=== PATIENT | female | born 1955 | race Caucasian/White ===

== ENCOUNTER → 2016-04-23 | Outpatient (CLI) | payer MEDICAID ==
[2016-04-23 09:13] LABS: ABSOLUTE EOSINOPHILS # (AUTO) 0.1 10^3/uL (0.0-0.6); ABSOLUTE LYMPHOCYTES (AUTO) 1.3 10^3/uL (0.5-4.7); ABSOLUTE MONOCYTES (AUTO) 0.3 10^3/uL (0.1-1.4); ABSOLUTE NEUT (AUTO) 2.7 10^3/uL (1.7-8.2); BASOPHILS % (AUTO) 0.8 % (0-2); EOSINOPHILS % (AUTO) 2.1 % (0-6); HEMATOCRIT 40.9 % (36.0-47.0); HEMOGLOBIN 13.8 g/dL (12.0-15.5); HGB HCT DIFFERENCE 0.5; LYMPHOCYTES % (AUTO) 29.8 % (13-45); MEAN CORPUSCULAR HEMOGLOBIN 30.3 pg (27.0-33.4); MEAN CORPUSCULAR HGB CONC 33.8 g/dL (32.0-36.0); MEAN CORPUSCULAR VOLUME 90 fl (80-97); MONOCYTES % (AUTO) 6.7 % (3-13); RED BLOOD COUNT 4.57 10^6/uL (3.72-5.28); RED CELL DISTRIBUTION WIDTH 12.7 % (11.5-14.0); SEGMENTED NEUTROPHILS % (AUTO) 60.6 % (42-78); WHITE BLOOD COUNT 4.4 10^3/uL (4.0-10.5)
[2016-04-23 09:36] LABS: ALANINE AMINOTRANSFERASE 30 U/L (9-52); ALBUMIN 4.8 g/dL (3.5-5.0); ALKALINE PHOSPHATASE 68 U/L (38-126); ANION GAP 13 (5-19); ASPARTATE AMINO TRANSFERASE 24 U/L (14-36); BILIRUBIN,TOTAL 0.6 mg/dL (0.2-1.3); BLOOD UREA NITROGEN 16 mg/dL (7-20); CARBON DIOXIDE 27 mmol/L (22-30); CHLORIDE 102 mmol/L (98-107); CHOLESTEROL 270.92 mg/dL (0-200); Direct HDL 50 mg/dL (>40); GLUCOSE 95 mg/dL (75-110); POTASSIUM 4.5 mmol/L (3.6-5.0); SODIUM 141.9 mmol/L (137-145); TOTAL PROTEIN 7.6 g/dL (6.3-8.2); TRIGLYCERIDES 156 mg/dL (<150)
[2016-04-23 09:47] LABS: DIRECT LDL 186 mg/dL (<100)
[2016-04-23 09:52] LABS: VLDL CHOLESTEROL 31.2 mg/dL (10-31)
[2016-04-24 14:40] LABS: JO-1 ANTIBODY <0.2 AI (0.0-0.9)
[2016-04-25 12:19] LABS: CYCLIC CITRUL PEPTIDE IGG/A AB 7 units (0-19)
== END ==
LOC: OD 07:35
DX: E78.5 Hyperlipidemia, unspecified (principal); E56.9 Vitamin deficiency, unspecified; M06.9 Rheumatoid arthritis, unspecified; M19.90 Unspecified osteoarthritis, unspecified site; J02.9 Acute pharyngitis, unspecified
CPT/HCPCS: 36415; 80053; 80061; 83036; 85025; 85652; 86200; 86225; 86235; 86430

== ENCOUNTER 2016-04-27 09:04 | Emergency (ER) | payer MEDICAID ==
[2016-04-27] MEDS ORDERED: ASPIRIN 81 MG TABLET, CHEWABLE PO ONE (09:05)
--- NOTE | 2016-04-27 09:24 | ER Document Report ---
ED Cardiac - General Stated Complaint: CHEST PAIN Notes: The patient is a 61-year-old female, past medical history hypertension, hyperlipidemia, anxiety, BPPV, presents with 3 days of left upper chest wall pain that is worse when she is coughing. She has had a URI for the past week and is coughing frequently. She is also having very mild shortness of breath and nausea after coughing. She says the chest pain is worse when she presses against her chest. Today, she is intermittently having her usual vertiginous symptoms. Denies ataxia, blurry vision, numbness, tingling, fevers, rash, recent travel, sick contacts, leg swelling, headache or back pain. TRAVEL OUTSIDE OF THE [place] IN LAST 30 DAYS: No - Related Data Allergies/Adverse Reactions: IVP dye Adverse Reaction (Intermediate, Uncoded 04/27/16 09:35) rash Past Medical History - Social History Smoking Status: Never Smoker Family History: CAD - Past Medical History Cardiac Medical History: Reports: Hx Hypercholesterolemia, Hx Hypertension Pulmonary Medical History: Reports: Hx Pneumonia - left lung scarring Denies: Hx Asthma, Hx Bronchitis, Hx COPD, Hx Respiratory Failure, Hx Sleep Apnea, Hx Tuberculosis Neurological Medical History: Reports: Hx Cerebrovascular Accident - Patient reports "mini stroke" Endocrine Medical History: Denies: Hx Diabetes Mellitus Type 1, Hx Diabetes Mellitus Type 2 Renal/ Medical History: Denies: Hx End Stage Renal Disease, Hx Kidney Stones, Hx Ovarian Cysts, Hx Peritoneal Dialysis Malignancy Medical History: Denies: Hx Breast Cancer, Hx Cervical Cancer, Hx Leukemia, Hx Lung Cancer, Hx Ovarian Cancer GI Medical History: Reports: Hx Gastroesophageal Reflux Disease, Hx Ulcer. Denies: Hx Crohn's Disease, Hx Hiatal Hernia, Hx Irritable Bowel, Hx Liver Failure Musculoskeltal Medical History: Reports Hx Arthritis, Denies Hx Fibromyalgia, Denies Hx Multiple Sclerosis, Denies Hx Muscular Dystrophy Psychiatric Medical History: Reports: Hx Depression, Hx Post Traumatic Stress Disorder Denies: Hx Bipolar Disorder, Hx Dementia, Hx Schizophrenia Traumatic Medical History: Reports: Hx Fractures - left wrist Infectious Medical History: Denies: Hx HIV Past Surgical History: Reports: Hx Adenoidectomy, Hx Appendectomy, Hx Hysterectomy, Hx Orthopedic Surgery - carpal tunnel. Denies: Hx Bowel Surgery, Hx Section, Hx Cholecystectomy, Hx Colostomy, Hx Coronary Artery Bypass Graft, Hx Gastric Bypass Surgery, Hx Herniorrhaphy, Hx Mastectomy, Hx Pacemaker, Hx Tonsillectomy, Hx Tubal Ligation - Immunizations Hx Diphtheria, Pertussis, Tetanus Vaccination: Yes Review of Systems - Review of Systems Notes: REVIEW OF SYSTEMS: CONSTITUTIONAL: -fevers, -chills EENT: -eye pain, -difficulty swallowing, -nasal congestion CARDIOVASCULAR: +chest pain, -syncope. RESPIRATORY: +cough, +SOB GASTROINTESTINAL: -abdominal pain, +nausea, -vomiting, -diarrhea GENITOURINARY: -dysuria, -hematuria MUSCULOSKELETAL: -back pain, -neck pain SKIN: -rash or skin lesions. HEMATOLOGIC: -easy bruising or bleeding. LYMPHATIC: -swollen, enlarged glands. NEUROLOGICAL: -altered mental status or loss of consciousness, -headache, - neurologic symptoms PSYCHIATRIC: -anxiety, -depression. ALL OTHER SYSTEMS REVIEWED AND NEGATIVE. Physical Exam - Vital signs Vitals: Pulse Ox 96 04/27/16 09:20 - Notes Notes: PHYSICAL EXAMINATION: GENERAL: Well-appearing, well-nourished and in no acute distress. HEAD: Atraumatic, normocephalic. EYES: Pupils equal round and reactive to light, extraocular movements intact, sclera anicteric, conjunctiva are normal. ENT: nares patent, oropharynx clear without exudates. Moist mucous membranes. NECK: Normal range of motion, supple without lymphadenopathy LUNGS: Breath sounds clear to auscultation bilaterally and equal. No wheezes rales or rhonchi. HEART: Regular rate and rhythm without murmurs ABDOMEN: Soft, nontender, normoactive bowel sounds. No guarding, no rebound. No masses appreciated. EXTREMITIES: Normal range of motion, no pitting or edema. No cyanosis. NEUROLOGICAL: Cranial nerves grossly intact. Normal speech, normal gait. Normal sensory, motor, and reflex exams. PSYCH: Normal mood, normal affect. SKIN: Warm, Dry, normal turgor, no rashes or lesions noted. Course - Re-evaluation Re-evalutation: Patient has no exam findings for posterior cerebellar insufficiency. After meclizine, patient's vertigo has resolved. Chest x-ray does not show any infiltrates. Lab tests, including troponin, are all unremarkable. EKG is also unremarkable. HEART score 3. She is low risk per Well's score, but unable to PERC out due to age and initial HR. D-dimer is negative, so PE is very unlikely at this time. Symptoms atypical for ACS and aortic dissection at this time. Spoke to patient and she is feeling better after aspirin. Instructed her to continue anti-inflammatories tele-chest wall pain and to follow-up with her primary care physician in one to 2 days to recheck her symptoms and possible stress test. Patient comfortable with plan. - Vital Signs Vital signs: Temp Pulse Resp BP Pulse Ox 97.9 F 29 H 123/80 98 04/27/16 11:03 04/27/16 11:03 04/27/16 11:03 04/27/16 11:03 - Laboratory Result Diagrams: 04/27/16 09:23 04/27/16 09:23 Laboratory results interpreted by me: 04/27/16 09:23 Calcium 10.6 H Total Protein 8.6 H Albumin 5.1 H Discharge - Discharge Clinical Impression: Chest wall pain, Cough Condition: Good Disposition: HOME, SELF-CARE Additional Instructions: CHEST PAIN OF UNCLEAR CAUSE: The exact cause of your chest pain isn't clear. Fortunately, there is no evidence of a dangerous medical condition. Further testing may be required to find the source of the pain. Most often, we find that this pain is coming from the chest wall -- the muscles or rib joints in the chest. But chest pain can come from the lung and lung lining, the esophagus, the heart valves or heart lining, and even the stomach or gallbladder. Rest. Eat lightly until the pain is gone. We may prescribe medicine for pain and inflammation. You should call the physician immediately if the pain radiates to the shoulder, jaw or arms; if you start to run a fever or develop a cough; or if you develop shortness of breath, or other new or alarming symptoms. NORMAL EXAM AND WORKUP: At this time, your examination and workup show no significant abnormality. No significant abnormal physical findings were noted. All laboratory, EKG, and imaging (x-ray, CT scans, ultrasound) studies that were ordered show no significant abnormality. Although your examination and all studies that were ordered showed no significant abnormal finding, there are no examinations and no studies that are 100% accurate. There is always the possibility that some abnormality could exist and not be detected with physical examination or within the limits and capabilities of laboratory and other studies. You should return or follow up as you were instructed on your visit today for further evaluation if your symptoms do not resolve. CHEST WALL PAIN: Your chest pain may be coming from the chest wall. This is often caused by straining the muscles or joints in the chest during physical activity, direct trauma, coughing, or vigorous vomiting. Persons with arthritis are especially prone to this type of pain, due to inflammation of the cartilage joints near the breast bone. Occasionally, no cause can be found. Rest from strenuous physical activity. This kind of chest pain is usually made worse by movement of the chest. Depending on the symptoms, we may prescribe medicine for pain, muscle relaxation, and antiinflammatory effects. If the pain is new, and seems to be due to muscle strain, cold packs can help. Otherwise, apply gentle warmth to the painful area for 15 minutes every hour or two. You should call contact the doctor immediately if things change. Further evaluation is needed if you develop a fever or cough, if the nature of the pain changes, or if you become short of breath. ASPIRIN: Aspirin has been shown to have a beneficial effect on blood circulation by reducing the clotting effect of platelets in the blood. These beneficial effects can be achieved by taking just a single baby (81 mg) aspirin a day. It is recommended that any person over the age of forty take a single baby aspirin every day for heart and brain circulation, unless you are allergic to aspirin or have some significant bleeding disorder. It is strongly recommended that people who have proven cardiac or blood circulation disturbances should take a baby aspirin every day. NITRATES: Nitroglycerin and related longer-acting nitrate medications are used to prevent or treat attacks of angina. These medicines dilate blood vessels, decreasing the work of the heart, and improving its supply of oxygen. Many different forms are available, including sublingual tablets (used under the tongue), sprays, skin patches, and long-acting pills. If the particular form of medication you have been given is not working well for you, contact your doctor. Long-acting forms: Take exactly as prescribed. Sudden stopping of medication can provoke increased attacks. Sublingual tabs or spray: A headache will usually occur with use. Sit or lie while waiting for the pain to go away. If angina doesn't respond to three doses (five minutes apart), call for emergency assistance. FOLLOW-UP CARE: If you have been referred to a physician for follow-up care, call the physician s office for an appointment as you were instructed or within the next two days. If you experience worsening or a significant change in your symptoms, notify the physician immediately or return to the Emergency Department at any time for re-evaluation. Prescriptions: Lidocaine [Lidoderm] 1 each TP DAILY #10 adh..patch Referrals: SHELBY SANDOVAL MD [Primary Care Provider] - Follow up as needed
[2016-04-27 09:35] LABS: ABSOLUTE BASOPHILS # (AUTO) 0.1 10^3/uL (0.0-0.2); ABSOLUTE EOSINOPHILS # (AUTO) 0.1 10^3/uL (0.0-0.6); ABSOLUTE LYMPHOCYTES (AUTO) 1.5 10^3/uL (0.5-4.7); ABSOLUTE MONOCYTES (AUTO) 0.4 10^3/uL (0.1-1.4); ABSOLUTE NEUT (AUTO) 3.9 10^3/uL (1.7-8.2); BASOPHILS % (AUTO) 0.9 % (0-2); EOSINOPHILS % (AUTO) 1.4 % (0-6); HEMATOCRIT 43.1 % (36.0-47.0); HEMOGLOBIN 15.2 g/dL (12.0-15.5); HGB HCT DIFFERENCE 2.5; LYMPHOCYTES % (AUTO) 25.3 % (13-45); MEAN CORPUSCULAR HEMOGLOBIN 30.6 pg (27.0-33.4); MEAN CORPUSCULAR HGB CONC 35.2 g/dL (32.0-36.0); MEAN CORPUSCULAR VOLUME 87 fl (80-97); MONOCYTES % (AUTO) 6.1 % (3-13); RED BLOOD COUNT 4.96 10^6/uL (3.72-5.28); SEGMENTED NEUTROPHILS % (AUTO) 66.3 % (42-78); WHITE BLOOD COUNT 5.8 10^3/uL (4.0-10.5)
[2016-04-27 09:54] LABS: BLOOD UREA NITROGEN 14 mg/dL (7-20); CARBON DIOXIDE 26 mmol/L (22-30); CHLORIDE 104 mmol/L (98-107); CREATININE RESULT 0.76 mg/dL (0.52-1.25); GLUCOSE 106 mg/dL (75-110); POTASSIUM 4.2 mmol/L (3.6-5.0); SODIUM 144.9 mmol/L (137-145)
[2016-04-27 09:55] LABS: ALBUMIN 5.1 g/dL (3.5-5.0); ANION GAP 15 (5-19); TOTAL PROTEIN 8.6 g/dL (6.3-8.2)
[2016-04-27 09:57] LABS: ALANINE AMINOTRANSFERASE 18 U/L (9-52); ALKALINE PHOSPHATASE 87 U/L (38-126); ASPARTATE AMINO TRANSFERASE 34 U/L (14-36); BILIRUBIN,TOTAL 0.8 mg/dL (0.2-1.3); CALCIUM 10.6 mg/dL (8.4-10.2); CREATINE KINASE 40 U/L (30-135)
[2016-04-27] MEDS ORDERED: NORMAL SALINE 1000 ML 1,000 ML IV ONE (10:00)
[2016-04-27] MEDS ORDERED: MECLIZINE HCL 25 MG TABLET PO ONE (10:48)
[2016-04-27 11:04] VITALS: BP 123/80
--- NOTE | 2016-04-27 11:57 | EKG REPORT ---
SEVERITY:- ABNORMAL ECG - SINUS RHYTHM WITH BASELINE ARTIFACTS : Confirmed by: Jose M Rome 27-Apr-2016 11:56:43
== END 2016-04-27 11:16 | disposition home or self-care (01) ==
LOC: ER 09:04
DX: R07.89 Other chest pain (principal); R05 Cough; R06.02 Shortness of breath; I10 Essential (primary) hypertension; E78.5 Hyperlipidemia, unspecified; Z86.73 Personal history of transient ischemic attack (TIA), and cerebral infarction without residual deficits; Z90.710 Acquired absence of both cervix and uterus
CPT/HCPCS: 93005; 99284; 96360; 36415; 82550; 85025; 80053; 84484; 85379; 71010; 93010; J7030

== ENCOUNTER → 2016-05-14 | Outpatient (CLI) | payer MEDICAID ==
[~2016-05-14] MED LIST: AMINOPHYLLINE INJ/PF 250 MG/10 ML SDV IV ONE; REGADENOSON INJ 0.4 MG/5 ML DISP.SYRIN IV ONE
--- NOTE | 2016-05-15 13:08 | DRAGON STRESS TEST REPORT ---
INTRAVENOUS LEXISCAN CARDIOLITE STRESS TEST USING SINGLE PHOTON EMMISION COMPUTERIZED TOMOGRAPHIC. DATE OF PROCEDURE: May 14, 2016 INDICATION : Chest pain CARDIAC RISK FACTORS: Dyslipidemia, family history of CAD RESTING EKG: Sinus rhythm, without any baseline ST-T wave changes. STRESS EKG: No significant changes noted with LexiScan bolus REASON FOR TERMINATION: Protocol. PROCEDURE REPORT: Baseline heart rate 68 beats per minute with blood pressure of 147/86. Patient had no significant complaints. Heart rate at 2 minutes post bolus 97 with a blood pressure of 165/74. 3 minutes post bolus heart rate 84 with blood pressure of 145/73. No significant EKG changes were noted. Patient had left arm and left shoulder discomfort during the procedure. CONCLUSIONS: Normal EKG and hemodynamic response to IV LexiScan. NUCLEAR DATA: At rest the patient was given 11.80 millicuries of technetium 99 sestamibi injected intravenously. As per protocol rest gated SPECT images were obtained. Subsequently the patient was given intravenous LexiScan at a dose of 0.4 mg in 5 mL intravenously, followed by flush with normal saline. Subsequently the stress dose of 32.1 millicuries of technetium 99 sestamibi was injected intravenously. As per protocol stress gated images were obtained. NUCLEAR INTERPRETATION: Both raw and processed data were used for interpretation. Visual, qualitative, computer-generated quantitative data was used. There was good myocardial uptake of technetium compound. Motion artifact and soft tissue attenuations were noted. Increased visceral uptake was noted. No definitive areas of transient perfusion defect noted. No definitive areas of fixed perfusion defect or scars noted. EKG gated imaging showed LV EF at 56 %, rest and stress gated EF similar visually. T. I D. ratio was 0.93. Lung heart ratio noted to be within normal limits 0.39. No significant extracardiac and abnormal radiotracer activities were noted. RV free wall uptake was noted to be borderline increased. IMPRESSION: Also refer to comments under nuclear interpretation. Also test results needs to be interpreted in the context of pretest probability. 1. There is no definitive scintigraphic evidence of LexiScan induced myocardial ischemia. 2. There is no definitive scintigraphic evidence of myocardial infarction/scar. 3. EKG gated imaging shows left ejection fraction of approximately 56 %. 4. Clinical correlation requested as occasionally single vessel disease or balanced ischemia could be missed. In approximately 10% of the cases Lexiscan may not cause adequate vasodilatory stress. RECOMMENDATIONS: Aggressive risk factor modification, medical therapy. Clinical correlation with echocardiogram derived ejection fraction. Inability to exercise by itself can lead to increased cardiovascular event risks. Consider cardiology consultation if clinically indicated. I AM AVAILABLE FOR CARDIOLOGY CONSULTATION AND FOLLOWUP IF REQUESTED BY PMD Jose M Rome M.D., MRCP [employer] Technician application helper, Board certified in cardiovascular diseases, Nuclear cardiology, Echocardiography Cardiac CT and cardiac MRI Ph. [phone] [facility]
== END ==
LOC: RAD 06:45
DX: I20.9 Angina pectoris, unspecified (principal)
CPT/HCPCS: 93017; 78452; A9500; J2785; J0280; Q9969

== ENCOUNTER → 2016-05-21 | Outpatient (CLI) | payer MEDICAID ==
[2016-05-21 08:35] LABS: APPEARANCE,URINE SLIGHTLY-CLOUDY; BILIRUBIN,URINE NEGATIVE (NEGATIVE); GLUCOSE, URINE NEGATIVE (NEGATIVE); KETONES,URINE NEGATIVE (NEGATIVE); LEUKOCYTE ESTERASE,URINE SMALL (NEGATIVE); NITRITE,URINE NEGATIVE (NEGATIVE); PROTEIN,URINE NEGATIVE (NEGATIVE); URINE SPECIFIC GRAVITY 1.011; UROBILINOGEN,URINE NEGATIVE mg/dL (<2.0)
== END ==
LOC: OD 07:06
DX: K46.9 Unspecified abdominal hernia without obstruction or gangrene (principal); E78.5 Hyperlipidemia, unspecified; I20.9 Angina pectoris, unspecified; M19.90 Unspecified osteoarthritis, unspecified site; M06.9 Rheumatoid arthritis, unspecified; F44.89 Other dissociative and conversion disorders; M47.22 Other spondylosis with radiculopathy, cervical region; M34.1 CR(E)ST syndrome; J02.9 Acute pharyngitis, unspecified
CPT/HCPCS: 71020; 72040; 81001

== ENCOUNTER → 2016-07-27 | Outpatient (CLI) | payer MEDICAID | LOC: OD 07:45 | PROVIDERS: ATTEND Student in an Organized Health Care Education/Training Program | DX: M54.12 Radiculopathy, cervical region (principal) | CPT/HCPCS: 72050 ==

== ENCOUNTER 2016-10-10 02:23 | Inpatient (IN) | payer MEDICAID ==
[2016-10-10] MEDS ORDERED: NORMAL SALINE 1000 ML 1,000 ML IV ONE (02:36)
[2016-10-10] MEDS ORDERED: ONDANSETRON HCL INJ/PF 4 MG/2 ML SDV IV ONE ×3 (02:36→08:10)
[2016-10-10] MEDS ORDERED: MORPHINE SULFATE 10 MG/ML INJ IV ONE (02:36)
--- NOTE | 2016-10-10 02:38 | ER Document Report ---
ED GI/ - General TRAVEL OUTSIDE OF THE [place] IN LAST 30 DAYS: No <JOLENE MCGINNIS - Last Filed: 10/10/16 07:49> <VINEET COPPOLA - Last Filed: 10/10/16 09:00> - General Stated Complaint: ABDOMINAL PAIN Time Seen by Provider: 10/10/16 02:29 Notes: Patient is a 61-year-old female comes emergency department for chief complaint of abdominal pain, she reports both lower and upper abdominal pain with vomiting 9 times, she states symptoms started about 6 p she had a loose bowel movement at about 530, she states she has not had a normal bowel movement in almost 1 week, this is abnormal for her. She denies fever, dysuria, flank pain, chest pain. She has had a cholecystectomy, 2 hernia repairs, hysterectomy, other past medical history is GERD, IBS, arthritis. (JOLENE MCGINNIS) - Related Data Allergies/Adverse Reactions: IVP dye Adverse Reaction (Intermediate, Uncoded 10/10/16 08:44) rash Past Medical History - General Information source: Patient - Social History Smoking Status: Never Smoker Drug Abuse: None Lives with: Alone Family History: CAD - Past Medical History Cardiac Medical History: Reports: Hx Hypercholesterolemia, Hx Hypertension Pulmonary Medical History: Reports: Hx Pneumonia - left lung scarring Denies: Hx Asthma, Hx Bronchitis, Hx COPD, Hx Respiratory Failure, Hx Sleep Apnea, Hx Tuberculosis Neurological Medical History: Reports: Hx Cerebrovascular Accident - Patient reports "mini stroke" Endocrine Medical History: Denies: Hx Diabetes Mellitus Type 1, Hx Diabetes Mellitus Type 2 Renal/ Medical History: Denies: Hx End Stage Renal Disease, Hx Kidney Stones, Hx Ovarian Cysts, Hx Peritoneal Dialysis Malignancy Medical History: Denies: Hx Breast Cancer, Hx Cervical Cancer, Hx Leukemia, Hx Lung Cancer, Hx Ovarian Cancer GI Medical History: Reports: Hx Gastroesophageal Reflux Disease, Hx Ulcer. Denies: Hx Crohn's Disease, Hx Hiatal Hernia, Hx Irritable Bowel, Hx Liver Failure Musculoskeltal Medical History: Reports Hx Arthritis, Denies Hx Fibromyalgia, Denies Hx Multiple Sclerosis, Denies Hx Muscular Dystrophy Psychiatric Medical History: Reports: Hx Depression, Hx Post Traumatic Stress Disorder Denies: Hx Bipolar Disorder, Hx Dementia, Hx Schizophrenia Traumatic Medical History: Reports: Hx Fractures - left wrist Infectious Medical History: Denies: Hx HIV Past Surgical History: Reports: Hx Adenoidectomy, Hx Appendectomy, Hx Hysterectomy, Hx Orthopedic Surgery - carpal tunnel. Denies: Hx Bowel Surgery, Hx Section, Hx Cholecystectomy, Hx Colostomy, Hx Coronary Artery Bypass Graft, Hx Gastric Bypass Surgery, Hx Herniorrhaphy, Hx Mastectomy, Hx Pacemaker, Hx Tonsillectomy, Hx Tubal Ligation - Immunizations Hx Diphtheria, Pertussis, Tetanus Vaccination: Yes <JOLENE MCGINNIS - Last Filed: 10/10/16 07:49> Review of Systems - Review of Systems Constitutional: No symptoms reported EENT: No symptoms reported Cardiovascular: No symptoms reported Respiratory: No symptoms reported Gastrointestinal: See HPI Genitourinary: No symptoms reported Female Genitourinary: No symptoms reported Musculoskeletal: No symptoms reported Skin: No symptoms reported Hematologic/Lymphatic: No symptoms reported Neurological/Psychological: No symptoms reported <JOLENE MCGINNIS - Last Filed: 10/10/16 07:49> Physical Exam - Vital signs Interpretation: Normal - General General appearance: Anxious In distress: Mild - HEENT Head: Normocephalic, Atraumatic Eyes: Normal Pupils: PERRL - Respiratory Respiratory status: No respiratory distress Chest status: Nontender Breath sounds: Normal. No: Decreased air movement, Wheezing Chest palpation: Normal - Cardiovascular Rhythm: Regular. No: Tachycardia Heart sounds: Normal auscultation, S1 appreciated, S2 appreciated Murmur: No - Abdominal Inspection: Other - vertical midline scar, small surgical scars otherwise Distension: Distended - mild distension Bowel sounds: Hypoactive Tenderness: Tender - upper and lower abdominal tenderness - Back Back: Normal, Nontender - Extremities General upper extremity: Normal inspection, Nontender, Normal color, Normal ROM , Normal temperature General lower extremity: Normal inspection, Nontender, Normal color, Normal ROM , Normal temperature, Normal weight bearing. No: Sam's sign - Neurological Neuro grossly intact: Yes Cognition: Normal Orientation: AAOx4 [place] Coma Scale Eye Opening: Spontaneous [place] Coma Scale Verbal: Oriented [place] Coma Scale Motor: Obeys Commands [place] Coma Scale Total: 15 Speech: Normal Motor strength normal: LUE, RUE, LLE, RLE Sensory: Normal - Psychological Associated symptoms: Anxious - Skin Skin Temperature: Warm Skin Moisture: Dry Skin Color: Normal <JOLENE MCGINNIS Last Filed: 10/10/16 07:49> Course - Laboratory Result Diagrams: 10/10/16 02:42 10/10/16 02:42 <JOLENE MCGINNIS - Last Filed: 10/10/16 07:49> - Laboratory Result Diagrams: 10/10/16 02:42 10/10/16 02:42 <VINEET COPPOLA - Last Filed: 10/10/16 09:00> - Re-evaluation Re-evalutation: Patient initially uncomfortable, vomiting, has generalized upper and lower abdominal pain. After medication she is much improved. CBC, chemistry, urinalysis nonspecific. Acute abdominal series nonspecific. On reevaluation patient continues to have some pain and is nauseated. Patient is allergic to IV contrast dye reportedly, CAT scan will be performed with oral contrast to rule out obstruction or other acute abdominal pathology. Patient becoming nauseated with contrast but she tolerated it well. She was given additional medications for nausea which worked well. She has not vomited again. She did have a loose bowel movement at [address] showing dilation of small bowel suggestive of possible developing obstruction versus ileus, no complete obstruction is seen, no other abnormalities noted. On reevaluation patient is actually asymptomatic, no complaints at this time. Discussed results with patient, patient will be given a p.o. trial with fluids and reevaluated. 10/10/16 07:50 Patient introduced to Jesus Manuel REA. (JOLENE MCGINNIS) 10/10/16 08:15 First examined patient she had decreased bowel sounds mild nausea but states she is feeling much better than earlier in the night. She was given a challenge of water and instructed to sip slowly. 1 of the nurses came to me and states she is now actively vomiting Zofran [address] Alvarado consulted and he will admit the patient with small bowel obstruction. NC to intermittent suction 18 fr 10/10/16 08:59 Patient had swelling to the bedside discussed plan of care with patient. She is very anxious and agitated about the NG tube. Will use viscous lidocaine and give her a milligram of Ativan IV previous to the insertion of the NG tube. We will give a bolus of lactated Ringer's and then continue with her hydrating IV. (VINEET COPPOLA) - Vital Signs Vital signs: Temp Pulse Resp BP Pulse Ox 97.5 F 83 21 H 161/80 H 98 06/24/17 08:44 10/10/16 08:44 10/10/16 08:44 10/10/16 08:44 10/10/16 08:44 - Laboratory Laboratory results interpreted by me: 10/10/16 10/10/16 10/10/16 02:42 02:42 03:45 Seg Neutrophils % 85.1 H Lymphocytes % 10.3 L Absolute Neutrophils 8.6 H Glucose 160 H AST 40 H Total Protein 8.3 H Urine Protein 30 H Urine Ketones TRACE H Discharge <JOLENE MCGINNIS - Last Filed: 10/10/16 07:49> - Discharge Admitting Provider: Surgicalist - [place] Unit Admitted: Surgical Floor <VINEET COPPOLA - Last Filed: 10/10/16 09:00> - Discharge Clinical Impression: Small bowel obstruction Disposition: ADMITTED INPATIENT
[2016-10-10 02:53] LABS: ABSOLUTE MONOCYTES (AUTO) 0.4 10^3/uL (0.1-1.4); ABSOLUTE NEUT (AUTO) 8.6 10^3/uL (1.7-8.2); BASOPHILS % (AUTO) 0.5 % (0-2); EOSINOPHILS % (AUTO) 0.3 % (0-6); HEMATOCRIT 42.6 % (36.0-47.0); HEMOGLOBIN 14.5 g/dL (12.0-15.5); HGB HCT DIFFERENCE 0.9; LYMPHOCYTES % (AUTO) 10.3 % (13-45); MEAN CORPUSCULAR VOLUME 88 fl (80-97); MONOCYTES % (AUTO) 3.8 % (3-13); RED BLOOD COUNT 4.83 10^6/uL (3.72-5.28); RED CELL DISTRIBUTION WIDTH 13.1 % (11.5-14.0); SEGMENTED NEUTROPHILS % (AUTO) 85.1 % (42-78); WHITE BLOOD COUNT 10.1 10^3/uL (4.0-10.5)
[2016-10-10 03:08] LABS: ALANINE AMINOTRANSFERASE 35 U/L (9-52); ALBUMIN 4.6 g/dL (3.5-5.0); ALKALINE PHOSPHATASE 90 U/L (38-126); ANION GAP 13 (5-19); ASPARTATE AMINO TRANSFERASE 40 U/L (14-36); BILIRUBIN,DIRECT 0.4 mg/dL (0.0-0.4); BILIRUBIN,TOTAL 0.7 mg/dL (0.2-1.3); BLOOD UREA NITROGEN 16 mg/dL (7-20); CALCIUM 9.8 mg/dL (8.4-10.2); CARBON DIOXIDE 24 mmol/L (22-30); CHLORIDE 103 mmol/L (98-107); CREATININE RESULT 0.71 mg/dL (0.52-1.25); GLUCOSE 160 mg/dL (75-110); LIPASE 55.5 U/L (23-300); POTASSIUM 4.2 mmol/L (3.6-5.0); SODIUM 139.9 mmol/L (137-145); TOTAL PROTEIN 8.3 g/dL (6.3-8.2)
--- NOTE | 2016-10-10 03:44 | RADIOLOGY REPORT (SQ) ---
EXAM DESCRIPTION: ACUTE ABDOMEN SERIES COMPLETED DATE/TIME: 10/10/2016 3:21 am REASON FOR STUDY: vomiting, upper and lower abdominal pain COMPARISON: 05/21/2016. 04/27/2016. 10/02/2015. CT, 06/06/2015. NUMBER OF VIEWS: Three views. TECHNIQUE: Frontal chest, supine abdomen and upright/decubitus abdomen radiographic images acquired. LIMITATIONS: None. FINDINGS: CHEST: Moderate lung volumes, prominent interstitium, an chronic prominent right cardiophr enic fat pad. FREE AIR: None. No abnormal gas collections. BOWEL GAS PATTERN: Nonobstructive pattern. No dilated loops. Small nonspecific air-fluid levels of t he mid abdomen. CALCIFICATIONS: No suspicious calcifications. HARDWARE: Right upper abdominal clips. SOFT TISSUES: No gross mass or suggestion of organomegaly. BONES: Mild disc desiccation. Ihcm-[id number] osteoarthritis of bilateral hips. OTHER: No other significant finding. IMPRESSION: No acute findings. TECHNICAL DOCUMENTATION: JOB ID: [id number] [employer]- All Rights Reserved
[2016-10-10 03:57] LABS: APPEARANCE,URINE SLIGHTLY-CLOUDY; BILIRUBIN,URINE NEGATIVE (NEGATIVE); GLUCOSE, URINE NEGATIVE (NEGATIVE); KETONES,URINE TRACE mg/dL (NEGATIVE); LEUKOCYTE ESTERASE,URINE NEGATIVE (NEGATIVE); NITRITE,URINE NEGATIVE (NEGATIVE); PROTEIN,URINE 30 mg/dL (NEGATIVE); URINE SPECIFIC GRAVITY 1.016; UROBILINOGEN,URINE NEGATIVE mg/dL (<2.0)
[2016-10-10 04:00] LABS: WBC,URINE RARE /HPF
[2016-10-10 04:01] LABS: BACTERIA,URINE 2+ /HPF
[2016-10-10] MEDS ORDERED: DIPHENHYDRAMINE HCL 50 MG/ML VIAL IV ONE (04:06)
--- NOTE | 2016-10-10 07:06 | RADIOLOGY REPORT (SQ) ---
EXAM DESCRIPTION: CT ABD/PELVIS ORAL ONLY COMPLETED DATE/TIME: 10/10/2016 6:48 am REASON FOR STUDY: abd pain, vomiting COMPARISON: 2.18.16. 09/06/2012. 08/27/2011. TECHNIQUE: CT scan of the abdomen and pelvis performed without intravenous or oral contrast. Images reviewed with lung, soft tissue, and bone windows. Reconstructed coronal and sagittal MPR images revi ewed. All images stored on PACS. All CT scanners at this facility use dose modulation, iterative reconstruction, and/or weight based d osing when appropriate to reduce radiation dose to as low as reasonably achievable (ALARA). [facility]: Dose Right [facility]: CareDose [facility]: Dose Right [facility]: Teradose 4D [facility]: [employer] RADIATION DOSE: Up-to-date CT equipment and radiation dose reduction techniques were employed. CTDIv ol: 12.1 mGy. DLP: 619 mGy-cm.mGy. LIMITATIONS: None. FINDINGS: LOWER CHEST: No significant findings. No nodules or infiltrates. Small atelectasis or sca r bilateral lung bases. NON-CONTRASTED LIVER, SPLEEN, ADRENALS: Evaluation limited by lack of IV contrast. No identified sign ificant masses. PANCREAS: No masses. No peripancreatic inflammatory changes. GALLBLADDER: Surgically absent. RIGHT KIDNEY AND URETER: No suspicious masses. Assessment limited by lack of IV contrast. No signif icant calcifications. No hydronephrosis or hydroureter. 11.9 cm with developmental malrotation. LEFT KIDNEY AND URETER: No suspicious masses. Assessment limited by lack of IV contrast. No signifi cant calcifications. No hydronephrosis or hydroureter. 9.6 cm with developmental malrotation. AORTA AND RETROPERITONEUM: No aneurysm. No retroperitoneal masses or adenopathy. BOWEL AND PERITONEAL CAVITY: No obvious masses or inflammatory changes. No free fluid. 3.2 cm in dil ated small bowel loops of the right paracentral abdomen with us air-fluid levels. Nondistended mid a nd distal small bowel with. Partial colectomy reported. Anterior midline scar. APPENDIX: Surgically absent. PELVIS, BLADDER, AND ABDOMINAL WALL:No abnormal masses. No free fluid. Bladder normal. New 2.2 cm le ft inguinal fluid collection. BONES: No significant findings. OTHER: No other significant finding. IMPRESSION: Moderate 3.2 cm fluid dilation of small bowel may indicate early or partial small bowel obstruction or ileus. TECHNICAL DOCUMENTATION: JOB ID: [id number] Quality ID # [id number]: Final reports with documentation of one or more dose reduction techniques (e.g., Au tomated exposure control, adjustment of the mA and/or kV according to patient size, use of iterative reconstruction technique) 2010 [employer]- All Rights Reserved
[2016-10-10] MEDS ORDERED: NORMAL SALINE 1000 ML 1,000 ML IV PRN (07:42)
[2016-10-10] MEDS ORDERED: LORAZEPAM INJ 2 MG/1 ML VIAL IV ONE (08:56)
[2016-10-10] MEDS ORDERED: RINGERS SOLUTION,LACTATED 1,000 ML IV ONE (08:56)
[2016-10-10] MEDS ORDERED: LIDOCAINE 2% VISCOUS SOLN 20 ML UDCUP PO ONE (08:57)
--- NOTE | 2016-10-10 09:39 | PDOC H&P ---
History of Present Illness Admission Date/PCP: 10/10/16 08:36 LIU MASON DO History of Present Illness: CARMEN HORTON is a 61 year old female who presents to the emergency department complaining of a several day history of crampy abdominal pain, nonlocalized associated with nausea and subsequent vomiting. Patient's last bowel movement was 4 days ago until yesterday when she had some diarrhea. Patient's pain increased yesterday after 12 PM. Last ate yesterday morning. She originally attributed her symptoms to GERD however when she was in the emergency department she was found to have increased abdominal pain and abdominal distention. CT scan of the abdomen and pelvis with oral contrast showed findings consistent with a partial mid small bowel obstruction surgery was consulted and she was advised admission. Patient denies previous history of small bowel obstruction. She is status post sigmoid colectomy and rectopexy [address] Fowler for rectal prolapse. Patient is also status post abdominal wall hernia surgery in [facility]. Past Medical History Cardiac Medical History: Reports: Hyperlipidema, Hypertension Pulmonary Medical History: Reports: Pneumonia - left lung scarring Denies: Asthma, Bronchitis, Chronic Obstructive Pulmonary Disease (COPD), Respiratory Failure, Sleep Apnea, Tuberculosis Endocrine Medical History: Denies: Diabetes Mellitus Type 1, Diabetes Mellitus Type 2 Renal/ Medical History: Denies: End Stage Renal Disease Malignancy Medical History: Denies: Breast Cancer, Cervical Cancer, Leukemia, Lung Cancer, Ovarian Cancer GI Medical History: Reports: Gastroesophageal Reflux Disease Denies: Crohn's Disease, Hiatal Hernia Musculoskeltal Medical History: Reports: Arthritis Denies: Fibromyalgia Psychiatric Medical History: Reports: Depression, Post Traumatic Stress Disorder Denies: Bipolar Disorder, Dementia Hematology: Denies: Anemia, Hemophilia, Sickle Cell Disease Infectious Medical History: Denies: HIV Past Surgical History Past Surgical History: Reports: Adenoidectomy, Appendectomy, Hysterectomy, Orthopedic Surgery - carpal tunnel, Other - Sigmoid colectomy, rectopexy Dr. Fowler 2013; abdominal wall hernia surg Denies: Amputation, Section, Cholecystectomy, Colostomy, Coronary Artery Bypass Graft, Gastric Bypass Surgery, Herniorrhaphy, Mastectomy, Pacemaker, Tonsillectomy, Tubal Ligation Social History Lives with: Alone Smoking Status: Never Smoker Hx Recreational Drug Use: No Hx Prescription Drug Abuse: No - Advance Directive Resuscitation Status: Full Code Family History Family History: CAD Parental Family History Reviewed: Yes Children Family History Reviewed: Yes Sibling(s) Family History Reviewed.: Yes Medication/Allergy Home Medications: Bupropion HCl [Bupropion Xl] 150 mg PO DAILY 02/07/15 Cholecalciferol (Vitamin D3) [D3-2000] 1 cap PO DAILY 02/07/15 Docusate Sodium [Colace 100 mg Capsule] 100 mg PO DAILY PRN 02/07/15 Duloxetine HCl [Cymbalta 20 mg Capsule.dr] 20 mg PO BID 02/07/15 Eszopiclone [Lunesta] 3 mg PO DAILY 02/07/15 Fiber [Fiber Choice] 1 tab PO DAILY 02/07/15 Gabapentin [Neurontin 300 mg Capsule] 300 mg PO BID 02/07/15 Hydrocodone Bit/Acetaminophen [Hydrocodon-Acetaminophen 5-325] 1 tab PO BID PRN 02/07/15 Esomeprazole Magnesium [Nexium] 40 mg PO Q12 #60 capsule.dr 02/08/15 Ezetimibe [Zetia 10 mg Tablet] 10 mg PO QHS #30 tablet 02/08/15 Rosuvastatin Calcium [Crestor] 40 mg PO QHS #30 tablet 02/08/15 Sucralfate [Carafate 1 gm Tablet] 1 gm PO ACHS #40 tablet 02/08/15 Lidocaine [Lidoderm] 1 each TP DAILY #10 adh..patch 04/27/16 Allergies/Adverse Reactions: IVP dye Adverse Reaction (Intermediate, Uncoded 10/10/16 08:44) rash Review of Systems Constitutional: PRESENT: as per HPI Eyes: ABSENT: visual disturbances Ears: ABSENT: hearing changes Breasts: PRESENT: other - Denies Gastrointestinal: PRESENT: other - Patient has had a colonoscopy in last 5 years. Genitourinary: ABSENT: dysuria, hematuria Musculoskeletal: PRESENT: back pain Psychiatric: ABSENT: anxiety, depression, homidical ideation, suicidal ideation Endocrine: ABSENT: cold intolerance, heat intolerance, polydipsia, polyuria Physical Exam Vital Signs: Temp Pulse Resp BP Pulse Ox 97.5 F 83 21 H 161/80 H 98 10/10/16 08:44 10/10/16 08:44 10/10/16 08:44 10/10/16 08:44 10/10/16 08:44 Intake & Output 06/10/10/16 10/11/16 06:59 06:59 06:59 Output Total 700 Balance -700 General appearance: PRESENT: mild distress Head exam: PRESENT: normocephalic Eye exam: PRESENT: EOMI Mouth exam: PRESENT: dry mucosa Neck exam: PRESENT: full ROM Respiratory exam: PRESENT: clear to auscultation alice Cardiovascular exam: PRESENT: RRR Pulses: PRESENT: normal carotid pulses, normal radial pulses Vascular exam: PRESENT: normal capillary refill GI/Abdominal exam: PRESENT: other - Abdomen distended tender diffusely midline incision scar well-healed Psychiatric exam: PRESENT: anxious, appropriate affect Skin exam: PRESENT: dry Results Impressions: Acute Abdomen Series 10/10/16 02:37 IMPRESSION: No acute findings. Abdomen/Pelvis CT 10/10/16 04:00 IMPRESSION: Moderate 3.2 cm fluid dilation of small bowel may indicate early or partial small bowel obstruction or ileus. Assessment & Plan - Diagnosis (1) Small bowel obstruction Is this a current diagnosis for this admission?: YesPlan: 1. Patient will be admitted to the surgical service, kept n.p.o. on IV fluids, nasogastric tube inserted. 2. If patient does not improve clinically, she may require exploratory laparoscopy, lysis of adhesion. 3. Explained above to the patient; she is very anxious but I believe she understands and agrees to proceed. (2) Chronic pain Is this a current diagnosis for this admission?: Yes (3) Hx of hyperlipidemia Is this a current diagnosis for this admission?: Yes (4) Anxiety disorder Is this a current diagnosis for this admission?: Yes - Time Time Spent: 30 to 50 Minutes Critical Time spent with patient: 15-24 minutes Medications reviewed and adjusted accordingly: Yes Anticipated discharge: Home - Inpatient Certification Based on my medical assessment, after consideration of the patient's comorbidities, presenting symptoms, or acuity I expect that the services needed warrant INPATIENT care.: Yes I certify that my determination is in accordance with my understanding of Medicare's requirements for reasonable and necessary INPATIENT services [42 CFR 412.3e].: Yes Medical Necessity: Need For IV Fluids, Need for Pain Control
[2016-10-10] MEDS: RINGERS SOLUTION,LACTATED 1,000 ML IV PRN ×2 (13:17→23:00)
[2016-10-10] MEDS: FAMOTIDINE INJ/PF 20 MG/2 ML SDV IV SCH ×2 (13:17→21:50)
[2016-10-11] MEDS: RINGERS SOLUTION,LACTATED 1,000 ML IV PRN ×3 (03:51→14:35)
[2016-10-11] MEDS ORDERED: KETOROLAC TROMETHAMINE INJ/PF 30 MG/1 ML SDV IV ONE (05:45)
[2016-10-11] MEDS: FAMOTIDINE INJ/PF 20 MG/2 ML SDV IV SCH ×2 (09:20→22:33)
--- NOTE | 2016-10-11 10:36 | PDOC PROGRESS REPORT ---
Subjective Progress Note for:: 10/11/16 Subjective:: Patient continues to have some abdominal pain initially better then worse last night. She got Toradol for pain with some relief. She denies flatus and denies bowel movement. She is voiding, with incomplete documentation of ins and outs. Physical Exam Vital Signs: Temp Pulse Resp BP Pulse Ox 98.1 F 70 14 148/70 H 97 10/11/16 07:24 10/11/16 07:24 10/11/16 07:24 10/11/16 07:24 10/11/16 07:24 Intake & Output 10/10/16 10/11/16 10/12/16 06:59 06:59 06:59 Intake Total 2400 Output Total 900 Balance 1500 Weight 68.9 kg General appearance: PRESENT: mild distress GI/Abdominal exam: PRESENT: other - Nasogastric tube draining dark green-brown material. Abdomen is tender not particularly distended. There is minimal guarding. Results Impressions: Acute Abdomen Series 10/10/16 02:37 IMPRESSION: No acute findings. Abdomen/Pelvis CT 10/10/16 04:00 IMPRESSION: Moderate 3.2 cm fluid dilation of small bowel may indicate early or partial small bowel obstruction or ileus. Assessment & Plan - Diagnosis (1) Small bowel obstruction Is this a current diagnosis for this admission?: YesPlan: 24 hours after admission patient still having abdominal pain and significant nasogastric tube output. Clinically no report of flatus. Plan: 1. Continue nasogastric decompression 2. We will check abdominal films this morning. If small bowel obstruction unresolved, exploratory surgery will be indicated and I explained this to the patient. (2) Chronic pain Is this a current diagnosis for this admission?: Yes (3) Hx of hyperlipidemia Is this a current diagnosis for this admission?: Yes (4) Anxiety disorder Is this a current diagnosis for this admission?: Yes
[2016-10-11] MEDS: ONDANSETRON HCL INJ/PF 4 MG/2 ML SDV IV PRN ×2 (11:02→19:27)
--- NOTE | 2016-10-11 11:03 | RADIOLOGY REPORT (SQ) ---
EXAM DESCRIPTION: ABDOMEN 2 VIEWS COMPLETED DATE/TIME: 10/11/2016 10:49 am REASON FOR STUDY: interval change COMPARISON: 10/10/2016 NUMBER OF VIEWS: Two views. TECHNIQUE: Supine and erect/decubitus radiographic images of the abdomen acquired. LIMITATIONS: None. FINDINGS: FREE AIR: None. No abnormal gas collections. LUNG BASES: Clear. BOWEL GAS PATTERN: Contrast is mass seen in the distribution of the colon. There are no dilated smal l bowel loops or air-fluid levels. CALCIFICATIONS: No suspicious calcifications. SOFT TISSUES: No gross mass or suggestion of organomegaly. HARDWARE: Nasogastric tube in place. BONES: No acute fracture. No worrisome bone lesions. OTHER: No other significant finding. IMPRESSION: Normal study. Contrast in the colon and no dilated small bowel loops. TECHNICAL DOCUMENTATION: JOB ID: [id number] [employer]- All Rights Reserved
[2016-10-12] MEDS: ONDANSETRON HCL INJ/PF 4 MG/2 ML SDV IV PRN ×3 (00:58→20:32)
--- NOTE | 2016-10-12 09:16 | PDOC PROGRESS REPORT ---
Subjective Progress Note for:: 10/12/16 Subjective:: Patient seen this a.m. She is just been to the bathroom but states she can only urinate. She states that she had some flatus last evening and again yesterday but has not had any through the night. She continues to complain about abdominal pain. She states the pain is a 4-5 out of 10. She states it is only when someone presses on her abdominal wall. She denies any nausea or vomiting. Nursing states the patient had 250 cc of drainage from her NG tube in the last 8 hours. Physical Exam Vital Signs: Temp Pulse Resp BP Pulse Ox 97.6 F 73 16 144/64 H 97 10/11/16 23:28 10/11/16 23:28 10/11/16 23:28 10/11/16 23:28 10/11/16 23:28 Intake & Output 10/11/16 10/12/16 10/13/16 06:59 06:59 06:59 Intake Total 2400 2400 Output Total 900 2150 Balance 1500 250 Weight 68.9 kg 68.3 kg General appearance: PRESENT: no acute distress, obese Head exam: PRESENT: normocephalic Eye exam: PRESENT: EOMI, PERRLA Mouth exam: PRESENT: dry mucosa Respiratory exam: PRESENT: clear to auscultation alice, symmetrical Cardiovascular exam: PRESENT: irregular rhythm, RRR, +S1, +S2 Pulses: PRESENT: normal dorsalis pedis pul, +2 pedal pulses bilateral Vascular exam: PRESENT: normal capillary refill GI/Abdominal exam: PRESENT: diminished bowel sounds, distended, guarding, hypoactive bowel sounds, soft, tenderness - Positive for regarding right and left lower quadrants. Hypoactive bowel sounds all quadrants. No rebound or masses noted. Results Laboratory Results: Laboratory WBC 10.1 10^3/uL (4.0-10.5) 10/10/16 02:42 RBC 4.83 10^6/uL (3.72-5.28) 10/10/16 02:42 Hgb 14.5 g/dL (12.0-15.5) 10/10/16 02:42 Hct 42.6 % (36.0-47.0) 10/10/16 02:42 MCV 88 fl (80-97) 10/10/16 02:42 MCH 30.0 pg (27.0-33.4) 10/10/16 02:42 MCHC 34.0 g/dL (32.0-36.0) 10/10/16 02:42 RDW 13.1 % (11.5-14.0) 10/10/16 02:42 Plt Count 266 10^3/uL (150-450) 10/10/16 02:42 Seg Neutrophils % 85.1 % (42-78) H 10/10/16 02:42 Lymphocytes % 10.3 % (13-45) L 10/10/16 02:42 Monocytes % 3.8 % (3-13) 10/10/16 02:42 Eosinophils % 0.3 % (0-6) 10/10/16 02:42 Basophils % 0.5 % (0-2) 10/10/16 02:42 Absolute Neutrophils 8.6 10^3/uL (1.7-8.2) H 10/10/16 02:42 Absolute Lymphocytes 1.0 10^3/uL (0.5-4.7) 10/10/16 02:42 Absolute Monocytes 0.4 10^3/uL (0.1-1.4) 10/10/16 02:42 Absolute Eosinophils 0.0 10^3/uL (0.0-0.6) 10/10/16 02:42 Absolute Basophils 0.0 10^3/uL (0.0-0.2) 10/10/16 02:42 Sodium 139.9 mmol/L (137-145) 10/10/16 02:42 Potassium 4.2 mmol/L (3.6-5.0) 10/10/16 02:42 Chloride 103 mmol/L (98-107) 10/10/16 02:42 Carbon Dioxide 24 mmol/L (22-30) 10/10/16 02:42 Anion Gap 13 (5-19) 10/10/16 02:42 BUN 16 mg/dL (7-20) 10/10/16 02:42 Creatinine 0.71 mg/dL (0.52-1.25) 10/10/16 02:42 Est GFR ( Amer) > 60 (>60) 10/10/16 02:42 Est GFR (Non-Af Amer) > 60 (>60) 10/10/16 02:42 Glucose 160 mg/dL (75-110) H 10/10/16 02:42 Calcium 9.8 mg/dL (8.4-10.2) 10/10/16 02:42 Total Bilirubin 0.7 mg/dL (0.2-1.3) 10/10/16 02:42 Direct Bilirubin 0.4 mg/dL (0.0-0.4) 10/10/16 02:42 Indirect Bilirubin Not Reportable 10/10/16 02:42 Neonat Total Bilirubin Not Reportable 10/10/16 02:42 AST 40 U/L (14-36) H 10/10/16 02:42 ALT 35 U/L (9-52) 10/10/16 02:42 Alkaline Phosphatase 90 U/L (38-126) 10/10/16 02:42 Total Protein 8.3 g/dL (6.3-8.2) H 10/10/16 02:42 Albumin 4.6 g/dL (3.5-5.0) 10/10/16 02:42 Lipase 55.5 U/L (23-300) 10/10/16 02:42 Urine Color YELLOW 10/10/16 03:45 Urine Appearance SLIGHTLY-CLOUDY 10/10/16 03:45 Urine pH 9.0 (5.0-9.0) 10/10/16 03:45 Ur Specific [place] 1.016 10/10/16 03:45 Urine Protein 30 mg/dL (NEGATIVE) H 10/10/16 03:45 Urine Glucose (UA) NEGATIVE mg/dL (NEGATIVE) 10/10/16 03:45 Urine Ketones TRACE mg/dL (NEGATIVE) H 10/10/16 03:45 Urine Blood NEGATIVE (NEGATIVE) 10/10/16 03:45 Urine Nitrite NEGATIVE (NEGATIVE) 10/10/16 03:45 Urine Bilirubin NEGATIVE (NEGATIVE) 10/10/16 03:45 Urine Urobilinogen NEGATIVE mg/dL (<2.0) 10/10/16 03:45 Ur Leukocyte Esterase NEGATIVE (NEGATIVE) 10/10/16 03:45 Urine WBC RARE /HPF 10/10/16 03:45 Ur Squamous Epith Cells MODERATE /HPF 10/10/16 03:45 Urine Bacteria 2+ /HPF 10/10/16 03:45 Urine Mucus 1+ 10/10/16 03:45 Urine Ascorbic Acid NEGATIVE (NEGATIVE) 10/10/16 03:45 Impressions: Acute Abdomen Series 10/10/16 02:37 IMPRESSION: No acute findings. Abdomen/Pelvis CT 10/10/16 04:00 IMPRESSION: Moderate 3.2 cm fluid dilation of small bowel may indicate early or partial small bowel obstruction or ileus. Abdomen X-Ray 10/11/16 08:12 IMPRESSION: Normal study. Contrast in the colon and no dilated small bowel loops. Assessment & Plan - Diagnosis (2) Small bowel obstruction Is this a current diagnosis for this admission?: YesPlan: We will order Gastrografin small bowel follow-through today to be placed on the patient's NG tube and attempt to identify mechanical versus paralytic ileus. 2. If the patient has bowel movement following Gastrografin small bowel follow- through will remove NG tube and begin clear liquid diet - Time Critical Time spent with patient: 15-24 minutes Medications reviewed and adjusted accordingly: Yes
[2016-10-12] MEDS: FAMOTIDINE INJ/PF 20 MG/2 ML SDV IV SCH ×2 (09:28→22:28)
[2016-10-12 10:48] LABS: ABSOLUTE EOSINOPHILS # (AUTO) 0.1 10^3/uL (0.0-0.6); ABSOLUTE LYMPHOCYTES (AUTO) 1.2 10^3/uL (0.5-4.7); ABSOLUTE MONOCYTES (AUTO) 0.5 10^3/uL (0.1-1.4); ABSOLUTE NEUT (AUTO) 4.8 10^3/uL (1.7-8.2); BASOPHILS % (AUTO) 0.5 % (0-2); EOSINOPHILS % (AUTO) 1.5 % (0-6); HEMATOCRIT 38.1 % (36.0-47.0); HEMOGLOBIN 12.8 g/dL (12.0-15.5); HGB HCT DIFFERENCE 0.3; LYMPHOCYTES % (AUTO) 18.2 % (13-45); MEAN CORPUSCULAR HGB CONC 33.7 g/dL (32.0-36.0); MEAN CORPUSCULAR VOLUME 89 fl (80-97); MONOCYTES % (AUTO) 7.3 % (3-13); RED BLOOD COUNT 4.28 10^6/uL (3.72-5.28); RED CELL DISTRIBUTION WIDTH 12.5 % (11.5-14.0); SEGMENTED NEUTROPHILS % (AUTO) 72.5 % (42-78); WHITE BLOOD COUNT 6.6 10^3/uL (4.0-10.5)
--- NOTE | 2016-10-12 13:51 | RADIOLOGY REPORT (SQ) ---
EXAM DESCRIPTION: KUB/ABDOMEN (SINGLE VIEW) COMPLETED DATE/TIME: 10/12/2016 1:41 pm REASON FOR STUDY: ileus Gastrograffin SBFT-UNABLE TO HAVE IODINE CONTRAST COMPARISON: 10/11/2016 NUMBER OF VIEWS: One view. TECHNIQUE: Supine radiographic image of the abdomen acquired. LIMITATIONS: None. FINDINGS: BOWEL GAS PATTERN: There is contrast in the ascending and transverse colon. NG tube is in place. CALCIFICATIONS: No suspicious calcifications. SOFT TISSUES: No gross mass or suggestion of organomegaly. HARDWARE: Surgical clips are present the right upper quadrant. BONES: No acute fracture. No worrisome bone lesions. OTHER: No other significant finding. IMPRESSION: Gas pattern is nonspecific. There is contrast in the ascending and transverse colon. N G tube is in place. TECHNICAL DOCUMENTATION: JOB ID: [id number] [employer]- All Rights Reserved
[2016-10-12] MEDS: RINGERS SOLUTION,LACTATED 1,000 ML IV PRN (22:28)
[2016-10-13] MEDS: RINGERS SOLUTION,LACTATED 1,000 ML IV PRN (03:44)
[2016-10-13] MEDS: ONDANSETRON HCL INJ/PF 4 MG/2 ML SDV IV PRN (06:46)
--- NOTE | 2016-10-13 08:03 | RADIOLOGY REPORT (SQ) ---
EXAM DESCRIPTION: ABDOMEN 2 VIEWS COMPLETED DATE/TIME: 10/13/2016 7:39 am REASON FOR STUDY: ileus COMPARISON: 10/12/2016. NUMBER OF VIEWS: Two views. TECHNIQUE: Supine and erect/decubitus radiographic images of the abdomen acquired. LIMITATIONS: None. FINDINGS: FREE AIR: None. No abnormal gas collections. LUNG BASES: Small left basilar atelectasis or scar. BOWEL GAS PATTERN: Retained colonic contrast. Paucity of bowel gas. CALCIFICATIONS: No suspicious calcifications. SOFT TISSUES: No gross mass or suggestion of organomegaly. HARDWARE: Right upper abdominal clips. Adequate appearing NG tube. BONES: No acute fracture. No worrisome bone lesions. OTHER: No other significant finding. IMPRESSION: NO RADIOGRAPHIC EVIDENCE FOR ACUTE ABDOMINAL DISEASE. TECHNICAL DOCUMENTATION: JOB ID: [id number] [employer]- All Rights Reserved
[2016-10-13] MEDS ORDERED: BISACODYL 10 MG SUPP.RECT PR ONE (08:18)
--- NOTE | 2016-10-13 08:28 | PDOC PROGRESS REPORT ---
Subjective Progress Note for:: 10/13/16 Subjective:: Patient seen this a.m. She states she still having some abdominal pain. She denies any nausea or vomiting. She has multiple questions concerning the fluid that is come out of her NG tube. The patient was scheduled to have a Gastrografin small bowel follow-through yesterday in attempt to stimulate her small bowel to finally cause a bowel movement however radiology refused to perform the procedure as the patient had stated she had an iodine allergy. The radiologist also stated the patient's contrast from her previous CT scan was already in her colon but there was no need for the study. Patient states she is hungry. She is having flatus but has not as yet had a bowel movement. Physical Exam Vital Signs: Temp Pulse Resp BP Pulse Ox 98.0 F 73 20 159/90 H 98 10/12/16 23:26 10/12/16 23:26 10/12/16 23:26 10/12/16 23:26 10/12/16 23:26 Intake & Output 10/12/16 10/13/16 10/14/16 06:59 06:59 06:59 Intake Total 2400 6648 Output Total 2150 2750 Balance 250 3898 Weight 68.3 kg 67.6 kg General appearance: PRESENT: no acute distress, obese, well-developed Head exam: PRESENT: atraumatic Respiratory exam: PRESENT: other - Clear to auscultation bilaterally negative for any rales, wheezing, rubs Cardiovascular exam: PRESENT: other - Regular rate and rhythm, positive S1-S2, negative S 3 S4, negative for any murmurs, thrills, clicks, heaves, rubs Pulses: PRESENT: normal carotid pulses, normal femoral pulses, normal dorsalis pedis pul Vascular exam: PRESENT: normal capillary refill GI/Abdominal exam: PRESENT: other - Soft, mild tenderness on palpation however with stethoscope in the same area as the patient elicits no response to deep palpation. No guarding or rebound noted. Positive bowel sounds 4 quadrants hypoactive. She is negative for distention or tympany. Neurological exam: PRESENT: alert, awake, oriented to time, oriented to situation Results Laboratory Results: 10/12/16 10:30 10/12/16 10:30 WBC 6.6 RBC 4.28 Hgb 12.8 Hct 38.1 MCV 89 MCH 30.0 MCHC 33.7 RDW 12.5 Plt Count 237 Seg Neutrophils % 72.5 Lymphocytes % 18.2 Monocytes % 7.3 Eosinophils % 1.5 Basophils % 0.5 Absolute Neutrophils 4.8 Absolute Lymphocytes 1.2 Absolute Monocytes 0.5 Absolute Eosinophils 0.1 Absolute Basophils 0.0 Impressions: Acute Abdomen Series 10/10/16 02:37 IMPRESSION: No acute findings. Abdomen/Pelvis CT 10/10/16 04:00 IMPRESSION: Moderate 3.2 cm fluid dilation of small bowel may indicate early or partial small bowel obstruction or ileus. KUB X-Ray 10/12/16 00:00 IMPRESSION: Gas pattern is nonspecific. There is contrast in the ascending and transverse colon. NG tube is in place. Abdomen X-Ray 10/13/16 06:00 IMPRESSION: NO RADIOGRAPHIC EVIDENCE FOR ACUTE ABDOMINAL DISEASE. Assessment & Plan - Diagnosis (1) Ileus Plan: 1. We will clip the patient's NG tube for the next 6 hours and begin clear liquid diet. If the patient tolerates the feeding over the next 6 hours we will remove the NG tube. 2. We will give the patient Dulcolax suppository and attempt to stimulate bowel function. 3. Review of the abdominal film from yesterday reveals contrast in the colon. There obviously is no evidence of ileus. (2) Small bowel obstruction Is this a current diagnosis for this admission?: Yes - Time Time Spent with patient: 25-34 minutes Anticipated discharge: Home
[2016-10-13] MEDS ORDERED: POTASSI CL 20 MEQ/D5-1/2NS 1L 1,000 ML IV PRN (08:38)
[2016-10-13] MEDS: FAMOTIDINE INJ/PF 20 MG/2 ML SDV IV SCH (09:21)
--- NOTE | 2016-10-13 16:09 | PDOC DISCHARGE SUMMARY ---
Discharge Summary (SDC) - Discharge Final Diagnosis: Partial small bowel obstruction Discharge Date: 10/13/16 Condition: Good Treatment or Instructions: 1. Follow-up with family physician this week, call for an appointment 2. Liquid diet for the next 48 hours and slowly advance to soft diet with multiple (5) meals per day 3. Any problems contact the hospital and have the surgical service was paged Referrals: LIU MASON DO [Primary Care Provider] - Follow up as needed Discharge Diet: Full Liquids Respiratory Treatments at Home: Deep Breathing/Coughing Discharge Activity: Activity As Tolerated Home Care Assistance: None Needed Report the Following to Your Physician Immediately: Shortness of Breath, Nausea , Vomiting, Increase in Pain Other Items to Report to MD: Abdominal distention, constipation
[2016-10-13 16:18] VITALS: BP 142/63
--- NOTE | 2016-12-02 09:02 | DISCHARGE SUMMARY E ---
Discharge Summary NAME: CARMEN HORTON : 1955 AGE: 61Y ADMITTED: 10/10/2016 DISCHARGED: 10/13/2016 SUMMARY OF HOSPITALIZATION: The patient is a 61-year-old white female with a history of previous sigmoid colectomy for benign disease, previous small bowel obstruction, who presented to the emergency department complaining of abdominal pain, nausea, and vomiting. She was evaluated and found by CT scan of the abdomen and pelvis to have findings consistent with a partial small bowel obstruction. She was admitted to the surgicalist service for management. The patient was admitted to the surgicalist service, kept n.p.o. on IV fluids. She was managed with a nasogastric tube. Clinically, she improved. Nasogastric tube was removed, she was started on liquid and tolerated this well. Her abdominal film showed resolution of a small bowel obstruction. By the third hospital day, she was felt to receive maximum benefit from hospitalization and was discharged home. FINAL DIAGNOSES: 1. Small bowel obstruction, resolved. 2. History of sigmoid colon resection remote. DISPOSITION: The patient will be discharged home in the care of her family. Follow up with [facility] in approximately 1-2 weeks and with her primary care doctor as previously scheduled. If she develops any acute signs of deterioration, she will be seen in the emergency department. DICTATING PHYSICIAN: PIERRE CADET M.D. [id number] PHY#: [id number] ID: [id number] JOB#: [id number] ACCT: [id number] cc:PIERRE CAEDT M.D. >
== END 2016-10-13 16:38 | disposition home or self-care (01) | DRG 390 ==
LOC: ER 02:23 → UNDOADMIN 08:36 → EH 08:36 → 4S 10:35 → EH 10:35
PROVIDERS: ADMIT Surgery; ATTEND Surgery
PROC: 0D9670Z Drainage of Stomach with Drainage Device, Via Natural or Artificial Opening (ICD-10-PCS; principal; 2016-10-10)
DX: K56.60 Unspecified intestinal obstruction (principal); K56.7 Ileus, unspecified; E78.5 Hyperlipidemia, unspecified; I10 Essential (primary) hypertension; K21.9 Gastro-esophageal reflux disease without esophagitis; M19.90 Unspecified osteoarthritis, unspecified site; F32.9 Major depressive disorder, single episode, unspecified; F43.10 Post-traumatic stress disorder, unspecified; G89.29 Other chronic pain; F41.9 Anxiety disorder, unspecified; K58.9 Irritable bowel syndrome, unspecified; E78.00 Pure hypercholesterolemia, unspecified; Z90.49 Acquired absence of other specified parts of digestive tract; Z90.710 Acquired absence of both cervix and uterus; Z79.899 Other long term (current) drug therapy; Z91.041 Radiographic dye allergy status; Z60.2 Problems related to living alone; Z86.73 Personal history of transient ischemic attack (TIA), and cerebral infarction without residual deficits; Z82.49 Family history of ischemic heart disease and other diseases of the circulatory system
CPT/HCPCS: 36415; 74000; 74020; 74022; 74176; 80053; 81001; 83690; 85025; 96374; 96375; 99285; J1200; J1885; J2060; J2270; J2405; J3490; J7030; J7120; S0028

== ENCOUNTER → 2017-01-19 | Outpatient (CLI) | payer MEDICAID ==
--- NOTE | 2017-01-19 16:48 | XCELERA REPORT ---
[address] [address] Tel: [phone] Fax: [phone] Lower Extremity Arterial Evaluation Name: CARMEN HORTON Age: 61 yrs Gender: Female : 1955 Patient Status: Outpatient Patient Location: [facility] Study Date: 01/19/2017 03:46 PM Procedure: Ankle brachial indicies performed. Reason For Study: PAIN Ordering Physician: LIU MASON Performed By: Gerber Fernandes Right Side Arterial Evaluation DAVID :1.29. Left Side Arterial Evaluation DAVID :1.29. Interpretation Summary ;Ankle Brachial indices normal. : LIU MASON > Ramin Zhong
== END ==
LOC: SP 14:26
PROVIDERS: ATTEND Student in an Organized Health Care Education/Training Program
DX: M79.605 Pain in left leg (principal); M79.604 Pain in right leg
CPT/HCPCS: 93922

== ENCOUNTER 2017-04-28 11:53 | Inpatient (IN) | payer MEDICAID ==
[2017-04-28] MEDS ORDERED: FENTANYL CITRATE INJ/PF 100 MCG/2 ML AMPUL ONE (11:57)
[2017-04-28] MEDS ORDERED: METHYLPREDNISOLONE INJ 125 MG/2 ML SDV ONE (12:01)
[2017-04-28] MEDS ORDERED: DIPHENHYDRAMINE HCL 50 MG/ML VIAL ONE (12:02)
[2017-04-28] MEDS ORDERED: METHYLPREDNISOLONE INJ 125 MG/2 ML SDV IV ONE (12:06)
[2017-04-28] MEDS ORDERED: DIPHENHYDRAMINE HCL 50 MG/ML VIAL IV ONE (12:06)
--- NOTE | 2017-04-28 12:12 | ER Document Report ---
ED General - General Chief Complaint: Chest Pain Stated Complaint: CHEST PAIN Time Seen by Provider: 04/28/17 12:03 Notes: The patient is a 62-year-old female, past medical history IBS, depression, hyperlipidemia, prior bowel obstructions, hernia repairs, appendectomy, total hysterectomy, presents with sudden onset of chest, abdominal and back pain that started just earlier today. When EMS arrived, her blood pressure was 140/90 and it dropped down to 80/30 during transport. On arrival to the ER, her BP increased to 100/70. Pt has had about 12 episodes of nonbloody emesis earlier today and feels very nauseous. Patient denies numbness, tingling, fevers, rash , headache or urinary symptoms. TRAVEL OUTSIDE OF THE [place] IN LAST 30 DAYS: No - Related Data Allergies/Adverse Reactions: IVP dye Adverse Reaction (Intermediate, Uncoded 10/10/16 08:44) rash Past Medical History - General Information source: Patient - Social History Smoking Status: Unknown if Ever Smoked Family History: CAD - Past Medical History Cardiac Medical History: Reports: Hx Hypercholesterolemia, Hx Hypertension Pulmonary Medical History: Reports: Hx Pneumonia - left lung scarring Denies: Hx Asthma, Hx Bronchitis, Hx COPD, Hx Respiratory Failure, Hx Sleep Apnea, Hx Tuberculosis Neurological Medical History: Reports: Hx Cerebrovascular Accident - Patient reports "mini stroke" Endocrine Medical History: Denies: Hx Diabetes Mellitus Type 1, Hx Diabetes Mellitus Type 2 Renal/ Medical History: Denies: Hx End Stage Renal Disease, Hx Kidney Stones, Hx Ovarian Cysts, Hx Peritoneal Dialysis Malignancy Medical History: Denies: Hx Breast Cancer, Hx Cervical Cancer, Hx Leukemia, Hx Lung Cancer, Hx Ovarian Cancer GI Medical History: Reports: Hx Gastroesophageal Reflux Disease, Hx Ulcer. Denies: Hx Crohn's Disease, Hx Hiatal Hernia, Hx Irritable Bowel, Hx Liver Failure, Hx Pancreatitis Musculoskeltal Medical History: Reports Hx Arthritis, Denies Hx Fibromyalgia, Denies Hx Multiple Sclerosis, Denies Hx Muscular Dystrophy Psychiatric Medical History: Reports: Hx Depression, Hx Post Traumatic Stress Disorder Denies: Hx Bipolar Disorder, Hx Dementia, Hx Schizophrenia Traumatic Medical History: Reports: Hx Fractures - left wrist Infectious Medical History: Denies: Hx HIV Past Surgical History: Reports: Hx Adenoidectomy, Hx Appendectomy, Hx Hysterectomy, Hx Orthopedic Surgery - carpal tunnel, Other - Sigmoid colectomy, rectopexy Dr. Fowler 2013; abdominal wall hernia surg. Denies: Hx Bowel Surgery, Hx Section, Hx Cholecystectomy, Hx Colostomy, Hx Coronary Artery Bypass Graft, Hx Gastric Bypass Surgery, Hx Herniorrhaphy, Hx Mastectomy , Hx Pacemaker, Hx Tonsillectomy, Hx Tubal Ligation - Immunizations Hx Diphtheria, Pertussis, Tetanus Vaccination: Yes Review of Systems - Review of Systems Notes: REVIEW OF SYSTEMS: CONSTITUTIONAL: -fevers, -chills EENT: -eye pain, -difficulty swallowing, -nasal congestion CARDIOVASCULAR: +chest pain, -syncope. RESPIRATORY: -cough, -SOB GASTROINTESTINAL: +abdominal pain, -nausea, -vomiting, -diarrhea GENITOURINARY: -dysuria, -hematuria MUSCULOSKELETAL: +back pain, -neck pain SKIN: -rash or skin lesions. HEMATOLOGIC: -easy bruising or bleeding. LYMPHATIC: -swollen, enlarged glands. NEUROLOGICAL: -altered mental status or loss of consciousness, -headache, - neurologic symptoms PSYCHIATRIC: -anxiety, -depression. ALL OTHER SYSTEMS REVIEWED AND NEGATIVE. Physical Exam - Vital signs Vitals: Resp 9 L 04/28/17 11:55 - Notes Notes: PHYSICAL EXAMINATION: GENERAL: Ill-appearing. Moderate distress. HEAD: Atraumatic, normocephalic. EYES: Pupils equal round and reactive to light, extraocular movements intact, sclera anicteric, conjunctiva are normal. ENT: nares patent, oropharynx clear without exudates. Moist mucous membranes. NECK: Normal range of motion, supple without lymphadenopathy LUNGS: Breath sounds clear to auscultation bilaterally and equal. No wheezes rales or rhonchi. HEART: Regular rate and rhythm without murmurs ABDOMEN: Soft, diffuse tenderness, decreased bowel sounds. No guarding, no rebound. No masses appreciated. EXTREMITIES: Normal range of motion, no pitting or edema. No cyanosis. Strong distal pulses. NEUROLOGICAL: Cranial nerves grossly intact. Normal speech, normal gait. Normal sensory and motor exams. PSYCH: Normal mood, normal affect. SKIN: Warm, Dry, normal turgor, no rashes or lesions noted. Course - Re-evaluation Re-evalutation: Patient seen immediately on arrival. She had chest pain, back pain abdominal pain and she was rushed to CAT scan. CTA did not show signs of aortic dissection or aneurysm. However, it did show evidence of partial small obstruction with transition point in the periumbilical region near her old hernia repair. Her blood pressure improved with IV fluids. NG tube placed after IV Versed given to patient and IV fluids provided to patient. She will be kept n.p.o.. 04/28/17 14:[address] Hutson and will admit patient to his service for further evaluation and monitoring. - Vital Signs Vital signs: Temp Pulse Resp BP Pulse Ox 98.0 F 11 L 130/73 H 100 04/28/17 12:59 04/28/17 13:01 04/28/17 13:01 04/28/17 13:01 - Laboratory Result Diagrams: 04/28/17 12:04 04/28/17 12:04 Laboratory results interpreted by me: 04/28/17 04/28/17 04/28/17 12:04 12:04 13:00 WBC 10.8 H Hgb 16.0 H Seg Neutrophils % 79.1 H Absolute Neutrophils 8.5 H Glucose 140 H Lactic Acid 2.2 H Calcium 11.0 H Albumin 5.1 H Ur Leukocyte Esterase 04/28/17 13:36 WBC Hgb Seg Neutrophils % Absolute Neutrophils Glucose Lactic Acid Calcium Albumin Ur Leukocyte Esterase SMALL H - Diagnostic Test Radiology reviewed: Image reviewed, Reports reviewed Radiology results interpreted by me: CTA Chest/A/P: Findings worrisome for partial small bowel obstruction, likely due to adhesions in the periumbilical region No CT evidence of abdominal aortic aneurysm or abdominal aortic dissection Discharge - Discharge Clinical Impression: Partial small bowel obstruction Condition: Stable Disposition: ADMITTED INPATIENT Admitting Provider: Surgicalist Rebekah Hutson Unit Admitted: Surgical Floor Referrals: LIU MASON DO [Primary Care Provider] - Follow up as needed
[2017-04-28 12:20] LABS: ABSOLUTE BASOPHILS # (AUTO) 0.1 10^3/uL (0.0-0.2); ABSOLUTE LYMPHOCYTES (AUTO) 1.8 10^3/uL (0.5-4.7); ABSOLUTE MONOCYTES (AUTO) 0.3 10^3/uL (0.1-1.4); ABSOLUTE NEUT (AUTO) 8.5 10^3/uL (1.7-8.2); EOSINOPHILS % (AUTO) 0.3 % (0-6); HEMATOCRIT 46.5 % (36.0-47.0); LYMPHOCYTES % (AUTO) 16.5 % (13-45); MEAN CORPUSCULAR HEMOGLOBIN 30.3 pg (27.0-33.4); MEAN CORPUSCULAR HGB CONC 34.3 g/dL (32.0-36.0); MEAN CORPUSCULAR VOLUME 88 fl (80-97); MONOCYTES % (AUTO) 3.1 % (3-13); PLATELET COUNT 298 10^3/uL (150-450); RED BLOOD COUNT 5.28 10^6/uL (3.72-5.28); RED CELL DISTRIBUTION WIDTH 13.4 % (11.5-14.0); SEGMENTED NEUTROPHILS % (AUTO) 79.1 % (42-78); TOTAL CELLS COUNTED % (AUTO) 100 %; WHITE BLOOD COUNT 10.8 10^3/uL (4.0-10.5)
[2017-04-28 12:31] LABS: ALANINE AMINOTRANSFERASE 25 U/L (9-52); ALBUMIN 5.1 g/dL (3.5-5.0); ALKALINE PHOSPHATASE 88 U/L (38-126); ANION GAP 19 (5-19); ASPARTATE AMINO TRANSFERASE 21 U/L (14-36); BILIRUBIN,DIRECT 0.3 mg/dL (0.0-0.4); BILIRUBIN,TOTAL 0.8 mg/dL (0.2-1.3); BLOOD UREA NITROGEN 10 mg/dL (7-20); CARBON DIOXIDE 23 mmol/L (22-30); CHLORIDE 101 mmol/L (98-107); CREATINE KINASE 36 U/L (30-135); GLUCOSE 140 mg/dL (75-110); LIPASE 88.2 U/L (23-300); POTASSIUM 4.1 mmol/L (3.6-5.0); TOTAL PROTEIN 8.2 g/dL (6.3-8.2)
[2017-04-28 12:43] LABS: NT PRO BNP 84 pg/mL (5-900)
[2017-04-28 12:44] LABS: TROPONIN I < 0.012 ng/mL
[2017-04-28] MEDS: NORMAL SALINE 1000 ML 1,000 ML IV PRN ×4 (12:47→14:36)
[2017-04-28] MEDS ORDERED: MORPHINE SULFATE 10 MG/ML INJ IV ONE (12:50)
--- NOTE | 2017-04-28 13:05 | RADIOLOGY REPORT (SQ) ---
EXAM DESCRIPTION: CTA CHEST COMPLETED DATE/TIME: 04/28/2017 12:47 pm REASON FOR STUDY: hypotension, chest/abdominal/back pain COMPARISON: Chest films 07/11/2012, 05/21/2016, 10/10/2016 TECHNIQUE: CT scan of the chest performed using helical scanning technique with dynamic intravenous contrast injection. Images reviewed with lung, soft tissue and bone windows. Reconstructed coronal and sagittal MPR images reviewed. Additional 3 dimensional post-processing performed to develop Maximal Intensity Projection images (WA P). All images stored on PACS. All CT scanners at this facility use dose modulation, iterative reconstruction, and/or weight based d osing when appropriate to reduce radiation dose to as low as reasonably achievable (ALARA). [facility]: Dose Right [facility]: CareDose [facility]: Dose Right [facility]: Teradose 4D [facility]: Group-IB CONTRAST TYPE AND DOSE: contrast/concentration: Isovue 370.00 mg/ml; Total Contrast Delivered: 80.0 ml; Total Saline Delivered: 75.0 ml Contrast bolus adequate for pulmonary arteries and aorta. RENAL FUNCTION: Not provided, ER doctor deferred creatinine to expedite study RADIATION DOSE: 17 mGy. LIMITATIONS: None. FINDINGS: LUNGS AND PLEURA: No masses, infiltrates, pneumothorax. No pleural effusions, calcificati ons. AORTA AND GREAT VESSELS: No aneurysm. Contrast bolus not optimized for the aorta. HEART: No pericardial effusion. No significant coronary artery calcifications. PULMONARY ARTERIES: No emboli visualized in the main pulmonary arteries or the segmental branches. HILAR AND MEDIASTINAL STRUCTURES: There is mild mediastinal adenopathy as follows: Prevascular 1.4 x 0.6 cm lymph node axial image 35 Pretracheal 1.8 x 1.2 cm lymph node axial image 41 Precarinal 1.2 x 0.9 cm lymph node axial image 44 HARDWARE: None in the chest. UPPER ABDOMEN: No significant findings. Limited exam. THYROID AND OTHER SOFT TISSUES: No masses. No adenopathy. BONES: No acute or significant finding. 3D MIPS: Confirm above findings. OTHER: No other significant finding. IMPRESSION: No CT angio evidence of acute pulmonary emboli or thoracic aortic dissection. Mild nons pecific mediastinal adenopathy. No focal infiltrates. COMMENT: Quality ID # [id number]: Final reports with documentation of one or more dose reduction techniques (e.g., Automated exposure control, adjustment of the mA and/or kV according to patient size, use of iterative reconstruction technique) TECHNICAL DOCUMENTATION: JOB ID: [id number] [employer]- All Rights Reserved
[2017-04-28 13:12] LABS: VENOUS BLOOD BASE EXCESS -1.6 mmol/L; VENOUS BLOOD HCO3 24.1 mmol/L (20-32); VENOUS BLOOD PCO2 44.6 mmHg (35-63); VENOUS BLOOD PH 7.35 (7.30-7.42)
--- NOTE | 2017-04-28 13:16 | RADIOLOGY REPORT (SQ) ---
EXAM DESCRIPTION: CTA ABDOMEN/PELVIS W WO COMPLETED DATE/TIME: 04/28/2017 12:47 pm REASON FOR STUDY: hypotension, chest/abdominal/back pain COMPARISON: CT angio chest same date CT abdomen pelvis 08/27/2011, 09/06/2012, 06/06/2015, 10/10/2016 TECHNIQUE: CT scan of the abdomen and pelvis performed with intravenous contrast using helical scann ing technique with dynamic intravenous contrast injection. No oral contrast. . Images reviewed with lung, soft tissue, and bone windows. Reconstructed coronal and sagittal MPR images reviewed. Delayed images for evaluation of the urinary system also acquired. All images stored on PACS. All CT scanners at this facility use dose modulation, iterative reconstruction, and/or weight based d osing when appropriate to reduce radiation dose to as low as reasonably achievable (ALARA). [facility]: Dose Right [facility]: CareDose [facility]: Dose Right [facility]: Teradose 4D [facility]: [employer] CONTRAST TYPE AND DOSE: 80 mL IV Isovue 370 Patient gives a history of IV contrast allergy. She was pre-medicated with an IV steroid prep today, without immediate complications post IV Isovue 370 RENAL FUNCTION: Deferred by the emergency room doctor RADIATION DOSE: CT Rad equipment meets quality standard of care and radiation dose reduction techniq ues were employed. CTDIvol: 11.4 - 17.4 mGy. DLP: 1666 mGy-cm.. LIMITATIONS: No oral contrast FINDINGS: LOWER CHEST: No significant findings. No nodules or infiltrates. LIVER: Normal size. No masses. No dilated ducts. SPLEEN: Normal size. No focal lesions. PANCREAS: No masses. No significant calcifications. No adjacent inflammation or peripancreatic fluid collections. Pancreatic duct not dilated. GALLBLADDER: Surgically absent ADRENAL GLANDS: No significant masses or asymmetry. RIGHT KIDNEY AND URETER: No solid masses. No significant calcification. No hydronephrosis or hydroure ter. LEFT KIDNEY AND URETER: No solid masses. No significant calcification. No hydronephrosis or hydrouret er. AORTA AND VESSELS: No aneurysm. No dissection. Renal arteries, SMA, celiac without stenosis. RETROPERITONEUM: No retroperitoneal adenopathy, hemorrhage or masses. BOWEL AND PERITONEAL CAVITY: Patient is post ventral hernia repair and partial sigmoid colectomy. Th ere is dilatation of proximal and mid small bowel loops, decompressed distal small bowel loops. Robert sition point appears to be in the periumbilical region near the through the repair. This is similar compared to 10/10/2016 APPENDIX: Surgically absent. PELVIS: No significant masses. Normal bladder. No free fluid. Post hysterectomy ABDOMINAL WALL: No masses. No hernias. BONES: No significant or acute findings. OTHER: No other significant finding. IMPRESSION: Findings worrisome for partial small bowel obstruction, likely due to adhesions in the p eriumbilical region No CT evidence of abdominal aortic aneurysm or abdominal aortic dissection TECHNICAL DOCUMENTATION: JOB ID: [id number] Quality ID # [id number]: Final reports with documentation of one or more dose reduction techniques (e.g., Au tomated exposure control, adjustment of the mA and/or kV according to patient size, use of iterative reconstruction technique) 2010 [employer]- All Rights Reserved
--- NOTE | 2017-04-28 13:35 | EKG REPORT ---
SEVERITY:- NORMAL ECG - SINUS RHYTHM : Confirmed by: Martir Molina MD 28-Apr-2017 13:34:47
[2017-04-28] MEDS ORDERED: FENTANYL CITRATE INJ/PF 100 MCG/2 ML AMPUL IV ONE ×2 (13:49→14:23)
[2017-04-28] MEDS ORDERED: MIDAZOLAM 2 MG/2 ML INJ IV ONE (13:49)
[2017-04-28 13:51] LABS: APPEARANCE,URINE CLEAR; BILIRUBIN,URINE NEGATIVE (NEGATIVE); COLOR,URINE COLORLESS; GLUCOSE, URINE NEGATIVE (NEGATIVE); KETONES,URINE NEGATIVE (NEGATIVE); LEUKOCYTE ESTERASE,URINE SMALL (NEGATIVE); NITRITE,URINE NEGATIVE (NEGATIVE); PROTEIN,URINE NEGATIVE (NEGATIVE); URINE SPECIFIC GRAVITY 1.016; UROBILINOGEN,URINE NEGATIVE mg/dL (<2.0)
[2017-04-28] MEDS ORDERED: ONDANSETRON HCL INJ/PF 4 MG/2 ML SDV IV ONE (14:07)
[2017-04-28] MEDS ORDERED: DEXTROSE 40% GEL 15 GM TUBE PO PRN ×2 (15:48)
[2017-04-28] MEDS ORDERED: DEXTROSE 50%-WATER 25 GM/50 ML DISP.SYRIN IV PRN ×2 (15:48)
[2017-04-28] MEDS ORDERED: GLUCAGON,HUMAN RECOMB 1 MG INJ SUBCUT PRN (15:48)
[2017-04-28] MEDS ORDERED: PHARMACY COMMUNICATION ORDER MC NR (16:00)
--- NOTE | 2017-04-28 16:46 | RADIOLOGY REPORT (SQ) ---
EXAM DESCRIPTION: KUB/ABDOMEN (SINGLE VIEW) COMPLETED DATE/TIME: 04/28/2017 4:27 pm REASON FOR STUDY: Check Placement of NG Tube COMPARISON: 2017. CT from earlier. FINDINGS: Portable AP upright image of the chest and upper abdomen for nasogastric tube placement. Nasogastric tube has its tip in the stomach. Side hole lies at the GE junction. Consider advancing slightly. Low lung volumes. Mild gaseous distention in the upper abdomen of at least 1 small bowel loop, limit ed assessment. IMPRESSION: Nasogastric tube should be slightly advanced further into the stomach. TECHNICAL DOCUMENTATION: JOB ID: [id number]
[2017-04-28] MEDS: ONDANSETRON HCL INJ/PF 4 MG/2 ML SDV IV PRN (19:58)
[2017-04-28] MEDS: MORPHINE SULFATE 10 MG/ML INJ IV PRN (19:58)
[2017-04-28] MEDS ORDERED: INFLUENZA ADLT QUAD (36MOS+) 2017-18 VAC 0.5 ML SYR IM PRN (20:27)
--- NOTE | 2017-04-28 21:14 | PDOC H&P ---
History of Present Illness Admission Date/PCP: 04/28/17 14:20 LIU MASON DO Patient complains of: Abdominal pains with N/V History of Present Illness: CARMEN HORTON is a 62 year old female c/o abdominal pains with N/V started this am. Had repair of incisional/umbilical hernia with mesh. Had an episode of SBO last October which spontaneously resolved. A CT scan of the abdomen done in ED which showed partial SBO with possible transition point at the area of the umbilicus. Past Medical History Cardiac Medical History: Reports: Hyperlipidema, Hypertension Pulmonary Medical History: Reports: Pneumonia - left lung scarring Denies: Asthma, Bronchitis, Chronic Obstructive Pulmonary Disease (COPD), Respiratory Failure, Sleep Apnea, Tuberculosis Endocrine Medical History: Denies: Diabetes Mellitus Type 1, Diabetes Mellitus Type 2 Renal/ Medical History: Denies: End Stage Renal Disease Malignancy Medical History: Denies: Breast Cancer, Cervical Cancer, Leukemia, Lung Cancer, Ovarian Cancer GI Medical History: Reports: Gastroesophageal Reflux Disease Denies: Crohn's Disease, Hiatal Hernia Musculoskeltal Medical History: Reports: Arthritis Denies: Fibromyalgia Psychiatric Medical History: Reports: Depression, Post Traumatic Stress Disorder Denies: Bipolar Disorder, Dementia Hematology: Denies: Anemia, Hemophilia, Sickle Cell Disease Infectious Medical History: Denies: HIV Past Surgical History Past Surgical History: Reports: Adenoidectomy, Appendectomy, Hysterectomy, Orthopedic Surgery - carpal tunnel, Other - Sigmoid colectomy, rectopexy Dr. Fowler 2013; abdominal wall hernia surg Denies: Amputation, Section, Cholecystectomy, Colostomy, Coronary Artery Bypass Graft, Gastric Bypass Surgery, Herniorrhaphy, Mastectomy, Pacemaker, Tonsillectomy, Tubal Ligation Social History Smoking Status: Never Smoker Frequency of Alcohol Use: None Hx Recreational Drug Use: No Drugs: None Hx Prescription Drug Abuse: No Family History Family History: CAD Parental Family History Reviewed: Yes Children Family History Reviewed: No Sibling(s) Family History Reviewed.: No Medication/Allergy Home Medications: Aspirin [Aspirin EC] 81 mg PO DAILY 04/28/17 Bupropion HCl [Bupropion Xl] 150 mg PO DAILY 04/28/17 Cholecalciferol (Vitamin D3) [Vitamin D3 2000 unit Tablet] 2,000 unit PO DAILY 04/28/17 Eszopiclone [Lunesta] 3 mg PO QHS 04/28/17 Famotidine [Pepcid 20 mg Tablet] 20 mg PO DAILY 04/28/17 Hydrocodone/Acetaminophen [[place] 5-325 mg Tablet] 1 tab PO Q12HP PRN 04/28/17 Linaclotide [Linzess 145 Mcg Capsule] 290 mcg PO DAILY 04/28/17 Nitroglycerin [Nitrostat 0.4 mg (1/150 Gr) Tabs 25/Bottle] 1 tab SL DAILY PRN Ondansetron [Zofran Odt 4 mg Tablet] 4 mg PO Q8HP PRN 04/28/17 Simvastatin [Zocor 80 mg Tablet] 80 mg PO QHS 04/28/17 Vortioxetine Hydrobromide [Brintellix] 10 mg PO DAILY 04/28/17 Allergies/Adverse Reactions: IVP dye Allergy (Intermediate, Uncoded 04/28/17 16:10) rash Review of Systems Constitutional: PRESENT: other - no fever/chills Eyes: PRESENT: other - no visual/hearing problems Nose, Mouth, and Throat: PRESENT: other - no sore throat Cardiovascular: PRESENT: other - no chest pains Respiratory: PRESENT: cough Gastrointestinal: PRESENT: abdominal pain, nausea, vomiting Genitourinary: PRESENT: other - no dysuria Integumentary: PRESENT: other - no rash Neurological: PRESENT: other - no seizures Psychiatric: PRESENT: anxiety Endocrine: PRESENT: other - no polyuria Hematologic/Lymphatic: PRESENT: other - no easy bruisability Physical Exam Vital Signs: Temp Pulse Resp BP Pulse Ox 98.7 F 70 16 127/68 H 96 04/28/17 19:32 04/28/17 19:32 04/28/17 19:32 04/28/17 19:32 04/28/17 19:32 Intake & Output 04/27/17 04/28/17 04/29/17 06:59 06:59 06:59 Intake Total 250 Balance 250 General appearance: PRESENT: mild distress Eye exam: PRESENT: conjunctiva pink Mouth exam: PRESENT: moist, tongue midline Neck exam: PRESENT: full ROM Respiratory exam: PRESENT: clear to auscultation alice Cardiovascular exam: PRESENT: RRR Pulses: PRESENT: normal radial pulses Vascular exam: PRESENT: normal capillary refill GI/Abdominal exam: PRESENT: soft, tenderness - periumbilical area Rectal exam: PRESENT: deferred Extremities exam: PRESENT: full ROM Musculoskeletal exam: PRESENT: ambulatory Neurological exam: PRESENT: alert, oriented to person, oriented to place, oriented to time, oriented to situation Psychiatric exam: PRESENT: anxious Skin exam: PRESENT: normal color, warm Results Laboratory Results: 04/28/17 18:15 Lactic Acid 0.8 Impressions: Abdomen/Pelvis CTA 04/28/17 12:07 IMPRESSION: Findings worrisome for partial small bowel obstruction, likely due to adhesions in the periumbilical region No CT evidence of abdominal aortic aneurysm or abdominal aortic dissection Chest/Abdomen CTA 04/28/17 12:07 IMPRESSION: No CT angio evidence of acute pulmonary emboli or thoracic aortic dissection. Mild nonspecific mediastinal adenopathy. No focal infiltrates. KUB X-Ray 04/28/17 15:55 IMPRESSION: Nasogastric tube should be slightly advanced further into the stomach. Assessment & Plan - Diagnosis (1) Partial small bowel obstruction Is this a current diagnosis for this admission?: Yes (2) Anxiety disorder Is this a current diagnosis for this admission?: Yes (3) Chronic pain Is this a current diagnosis for this admission?: Yes - Time Time Spent: 30 to 50 Minutes - Inpatient Certification Medical Necessity: Need Close Monitoring Due to Risk of Patient Decompensation, Need For IV Fluids, Need for Pain Control, Need for Surgery, Risk of Complication if Not Cared For in Hospital - Plan Summary Plan Summary: Hydrate NGT to LIS Pain mx May need surgery. Serial evaluation
[2017-04-29] MEDS: NORMAL SALINE 1000 ML 1,000 ML IV PRN ×2 (01:05→10:36)
[2017-04-29] MEDS: ONDANSETRON HCL INJ/PF 4 MG/2 ML SDV IV PRN ×3 (05:02→20:02)
[2017-04-29] MEDS: MORPHINE SULFATE 10 MG/ML INJ IV PRN ×3 (05:02→18:57)
[2017-04-29 06:33] LABS: ABSOLUTE LYMPHOCYTES (AUTO) 1.3 10^3/uL (0.5-4.7); ABSOLUTE MONOCYTES (AUTO) 0.5 10^3/uL (0.1-1.4); ABSOLUTE NEUT (AUTO) 9.2 10^3/uL (1.7-8.2); BASOPHILS % (AUTO) 0.3 % (0-2); EOSINOPHILS % (AUTO) 0.2 % (0-6); HEMATOCRIT 36.8 % (36.0-47.0); LYMPHOCYTES % (AUTO) 11.5 % (13-45); MEAN CORPUSCULAR HEMOGLOBIN 30.6 pg (27.0-33.4); MEAN CORPUSCULAR HGB CONC 34.7 g/dL (32.0-36.0); MEAN CORPUSCULAR VOLUME 88 fl (80-97); MONOCYTES % (AUTO) 4.8 % (3-13); PLATELET COUNT 217 10^3/uL (150-450); RED BLOOD COUNT 4.18 10^6/uL (3.72-5.28); RED CELL DISTRIBUTION WIDTH 13.1 % (11.5-14.0); SEGMENTED NEUTROPHILS % (AUTO) 83.2 % (42-78); TOTAL CELLS COUNTED % (AUTO) 100 %
[2017-04-29 06:34] LABS: HEMOGLOBIN 12.8 g/dL (12.0-15.5)
[2017-04-29 06:39] LABS: ALANINE AMINOTRANSFERASE 17 U/L (9-52); ALBUMIN 3.7 g/dL (3.5-5.0); ALKALINE PHOSPHATASE 55 U/L (38-126); ANION GAP 10 (5-19); ASPARTATE AMINO TRANSFERASE 21 U/L (14-36); BILIRUBIN,DIRECT 0.3 mg/dL (0.0-0.4); BILIRUBIN,TOTAL 0.5 mg/dL (0.2-1.3); BLOOD UREA NITROGEN 11 mg/dL (7-20); CALCIUM 8.8 mg/dL (8.4-10.2); CARBON DIOXIDE 24 mmol/L (22-30); CHLORIDE 112 mmol/L (98-107); GLUCOSE 81 mg/dL (75-110); SODIUM 145.5 mmol/L (137-145)
--- NOTE | 2017-04-29 11:01 | RADIOLOGY REPORT (SQ) ---
EXAM DESCRIPTION: ABDOMEN 2 VIEWS COMPLETED DATE/TIME: 04/29/2017 9:29 am REASON FOR STUDY: f/u sbo COMPARISON: CT abdomen pelvis 04/28/2017 NUMBER OF VIEWS: Two views. TECHNIQUE: Supine and upright radiographic images of the abdomen acquired. LIMITATIONS: None. FINDINGS: FREE AIR: None. No abnormal gas collections. LUNG BASES: Minimal left basilar bandlike atelectasis. BOWEL GAS PATTERN: There is a nasogastric tube present, with the tip and side port in the stomach. Currently, there is a nonobstructive bowel gas pattern. Dilated small bowel loops in left upper quad rant seen on CT 04/28/2017 have resolved. There is a large amount of stool in the ascending colon. R emainder the colon is decompressed. Images were reviewed with Dr. Beaulieu CALCIFICATIONS: No suspicious calcifications. SOFT TISSUES: No gross mass or suggestion of organomegaly. HARDWARE: Nasogastric tube tip and side port in the stomach. Right upper quadrant clips post cholecy stectomy. Rectosigmoid anastomotic melissa. BONES: No acute fracture. No worrisome bone lesions. OTHER: No other significant finding. IMPRESSION: Nasogastric tube tip and side port in the stomach Dilated small bowel loops on CT yesterday 04/28/2017 have resolved. Moderate stool in the ascending colon. TECHNICAL DOCUMENTATION: JOB ID: [id number] [employer]- All Rights Reserved
--- NOTE | 2017-04-29 11:35 | PDOC PROGRESS REPORT ---
Subjective Progress Note for:: 04/29/17 Subjective:: Nausea. Abdomen still feels tight. Some abdominal pain. Not passing gas. Reason For Visit: PARTIAL SMALL BOWEL OBSTRUCTION DUE TO ADHESIONS Physical Exam Vital Signs: Temp Pulse Resp BP Pulse Ox 98.2 F 71 18 125/59 L 98 04/29/17 07:53 04/29/17 07:53 04/29/17 04:25 04/29/17 07:53 04/29/17 07:53 Intake & Output 04/28/17 04/29/17 04/30/17 06:59 06:59 06:59 Intake Total 1650 Output Total 1050 Balance 600 Weight 65.5 kg General appearance: PRESENT: no acute distress, cooperative Respiratory exam: PRESENT: clear to auscultation alice Cardiovascular exam: PRESENT: RRR GI/Abdominal exam: PRESENT: other - Abdomen is soft, mildly distended, bowel sounds are heard. There is mild diffuse abdominal tenderness without peritoneal signs. NG tube output is bile tinged. Extremities exam: PRESENT: other - No swelling Results Laboratory Results: 04/29/17 05:16 04/29/17 05:16 04/28/17 04/29/17 04/29/17 18:15 05:16 05:16 WBC 11.0 H RBC 4.18 Hgb 12.8 D Hct 36.8 MCV 88 MCH 30.6 MCHC 34.7 RDW 13.1 Plt Count 217 Seg Neutrophils % 83.2 H Lymphocytes % 11.5 L Monocytes % 4.8 Eosinophils % 0.2 Basophils % 0.3 Absolute Neutrophils 9.2 H Absolute Lymphocytes 1.3 Absolute Monocytes 0.5 Absolute Eosinophils 0.0 Absolute Basophils 0.0 Sodium 145.5 H Potassium 4.0 Chloride 112 H Carbon Dioxide 24 Anion Gap 10 BUN 11 Creatinine 0.62 Est GFR ( Amer) > 60 Est GFR (Non-Af Amer) > 60 Glucose 81 Lactic Acid 0.8 Calcium 8.8 Total Bilirubin 0.5 AST 21 ALT 17 Alkaline Phosphatase 55 Total Protein 6.0 L Albumin 3.7 Impressions: Abdomen/Pelvis CTA 04/28/17 12:07 IMPRESSION: Findings worrisome for partial small bowel obstruction, likely due to adhesions in the periumbilical region No CT evidence of abdominal aortic aneurysm or abdominal aortic dissection Chest/Abdomen CTA 04/28/17 12:07 IMPRESSION: No CT angio evidence of acute pulmonary emboli or thoracic aortic dissection. Mild nonspecific mediastinal adenopathy. No focal infiltrates. KUB X-Ray 04/28/17 15:55 IMPRESSION: Nasogastric tube should be slightly advanced further into the stomach. Abdomen X-Ray 04/29/17 00:00 IMPRESSION: Nasogastric tube tip and side port in the stomach Dilated small bowel loops on CT yesterday 04/28/2017 have resolved. Moderate stool in the ascending colon. Assessment & Plan - Diagnosis (1) Partial small bowel obstruction Is this a current diagnosis for this admission?: Yes Plan: Abdominal x-ray looks much improved with no distended loops of small bowel seen. There is air and feces seen in the colon. However patient still has bilious output through her NG tube and she still has nausea and although her abdomen is very soft she still feels that her abdomen is tight. Will give her an enema to clear out the stool from her colon. We will continue NG tube for now. Encourage ambulation.
[2017-04-29] MEDS ORDERED: DEXTROSE 5%-1/2 NORMAL SALINE 1,000 ML with POTASSIUM CHLORIDE 20 MEQ IV PRN ×2 (11:37)
[2017-04-29] MEDS ORDERED: NA PHOS,M-B/NA PHOS,DI-BA (ADULT) 133 ML ENEMA PR ONE (12:32)
[2017-04-29] MEDS: POTASSI CL 20 MEQ/D5-1/2NS 1L 1000 ML IV PRN ×2 (13:24→22:40)
[2017-04-29] MEDS ORDERED: ACETAMINOPHEN 650 MG SUPP.RECT PR ONE (19:45)
[2017-04-29] MEDS: FAMOTIDINE INJ/PF 20 MG/2 ML SDV IV SCH (22:41)
[2017-04-30] MEDS: ONDANSETRON HCL INJ/PF 4 MG/2 ML SDV IV PRN ×4 (03:19→22:07)
[2017-04-30] MEDS: MORPHINE SULFATE 10 MG/ML INJ IV PRN ×4 (03:24→23:41)
[2017-04-30 06:54] LABS: HEMATOCRIT 36.7 % (36.0-47.0); HEMOGLOBIN 12.6 g/dL (12.0-15.5); MEAN CORPUSCULAR HEMOGLOBIN 30.1 pg (27.0-33.4); MEAN CORPUSCULAR HGB CONC 34.3 g/dL (32.0-36.0); MEAN CORPUSCULAR VOLUME 88 fl (80-97); PLATELET COUNT 203 10^3/uL (150-450); RED BLOOD COUNT 4.19 10^6/uL (3.72-5.28); RED CELL DISTRIBUTION WIDTH 13.5 % (11.5-14.0); WHITE BLOOD COUNT 6.3 10^3/uL (4.0-10.5)
[2017-04-30 07:23] LABS: ANION GAP 12 (5-19); BLOOD UREA NITROGEN 6 mg/dL (7-20); CALCIUM 9.4 mg/dL (8.4-10.2); CARBON DIOXIDE 25 mmol/L (22-30); CHLORIDE 104 mmol/L (98-107); GLUCOSE 103 mg/dL (75-110); POTASSIUM 4.1 mmol/L (3.6-5.0); SODIUM 141.4 mmol/L (137-145)
--- NOTE | 2017-04-30 08:12 | RADIOLOGY REPORT (SQ) ---
EXAM DESCRIPTION: ABDOMEN 2 VIEWS COMPLETED DATE/TIME: 04/30/2017 7:52 am REASON FOR STUDY: f/u psbo COMPARISON: None. NUMBER OF VIEWS: Two views. TECHNIQUE: Supine and erect/decubitus radiographic images of the abdomen acquired. LIMITATIONS: None. FINDINGS: FREE AIR: None. No abnormal gas collections. LUNG BASES: Clear. BOWEL GAS PATTERN: Nonobstructive pattern. No dilated loops or air fluid levels. CALCIFICATIONS: No suspicious calcifications. SOFT TISSUES: No gross mass or suggestion of organomegaly. HARDWARE: NG tube is in place. There are clips in the right upper quadrant consistent with prior cho lecystectomy. BONES: No acute fracture. No worrisome bone lesions. OTHER: No other significant finding. IMPRESSION: No acute findings. NG tube is in place. TECHNICAL DOCUMENTATION: JOB ID: [id number] [employer]- All Rights Reserved
[2017-04-30] MEDS: ASPIRIN 81 MG TABLET, ENT COATED PO SCH (08:19)
[2017-04-30] MEDS: NITROGLYCERIN 0.4 MG/TAB 25 TAB/BOTTLE SL PRN (08:21)
[2017-04-30] MEDS: POTASSI CL 20 MEQ/D5-1/2NS 1L 1000 ML IV PRN ×2 (09:55→20:28)
[2017-04-30] MEDS: FAMOTIDINE INJ/PF 20 MG/2 ML SDV IV SCH ×2 (09:56→22:04)
[2017-04-30] MEDS ORDERED: (PENDING PHARMACY ID) (Bupropion Hcl [Bupropion Xl] 150 MG) PO SCH (10:00)
[2017-04-30] MEDS ORDERED: (PENDING PHARMACY ID) (Vortioxetine Hydrobromide [Trintellix] 10 MG) PO SCH (10:00)
--- NOTE | 2017-04-30 21:09 | PDOC PROGRESS REPORT ---
Subjective Progress Note for:: 04/30/17 Subjective:: no pains feels better but no flatus yet Reason For Visit: PARTIAL SMALL BOWEL OBSTRUCTION DUE TO ADHESIONS Physical Exam Vital Signs: Temp Pulse Resp BP Pulse Ox 97.9 F 59 L 18 124/57 L 97 04/30/17 19:13 04/30/17 19:13 04/30/17 19:13 04/30/17 19:13 04/30/17 19:13 Intake & Output 04/29/17 04/30/17 05/01/17 06:59 06:59 06:59 Intake Total 1650 2534 1523 Output Total 1050 2250 1100 Balance 600 284 423 Weight 65.5 kg 68 kg Exam: NGT only 200 ccs thru night. Abd is soft not distended Results Laboratory Results: 04/30/17 06:00 04/30/17 06:00 04/30/17 04/30/17 06:00 06:00 WBC 6.3 RBC 4.19 Hgb 12.6 Hct 36.7 MCV 88 MCH 30.1 MCHC 34.3 RDW 13.5 Plt Count 203 Sodium 141.4 Potassium 4.1 Chloride 104 Carbon Dioxide 25 Anion Gap 12 BUN 6 L Creatinine 0.59 Est GFR ( Amer) > 60 Est GFR (Non-Af Amer) > 60 Glucose 103 Calcium 9.4 Impressions: Abdomen/Pelvis CTA 04/28/17 12:07 IMPRESSION: Findings worrisome for partial small bowel obstruction, likely due to adhesions in the periumbilical region No CT evidence of abdominal aortic aneurysm or abdominal aortic dissection Chest/Abdomen CTA 04/28/17 12:07 IMPRESSION: No CT angio evidence of acute pulmonary emboli or thoracic aortic dissection. Mild nonspecific mediastinal adenopathy. No focal infiltrates. KUB X-Ray 04/28/17 15:55 IMPRESSION: Nasogastric tube should be slightly advanced further into the stomach. Abdomen X-Ray 04/30/17 07:00 IMPRESSION: No acute findings. NG tube is in place. Assessment & Plan - Diagnosis (1) Partial small bowel obstruction Is this a current diagnosis for this admission?: Yes (2) Anxiety disorder Is this a current diagnosis for this admission?: Yes (3) Chronic pain Is this a current diagnosis for this admission?: Yes - Time Time Spent with patient: 15-24 minutes - Inpatient Certification Medical Necessity: Need For IV Fluids, Risk of Complication if Not Cared For in Hospital - Plan Summary Plan Summary: Will D/C NGT and start clears Increase diet tomorrow if pass flatus Continue hydration for now.
[2017-05-01] MEDS: MORPHINE SULFATE 10 MG/ML INJ IV PRN ×2 (06:13→12:35)
[2017-05-01] MEDS: ONDANSETRON HCL INJ/PF 4 MG/2 ML SDV IV PRN ×2 (06:13→12:35)
[2017-05-01] MEDS: POTASSI CL 20 MEQ/D5-1/2NS 1L 1000 ML IV PRN (06:13)
[2017-05-01] MEDS ORDERED: BUPROPION HCL 150 MG PO SCH (10:00)
[2017-05-01] MEDS ORDERED: VORTIOXETINE HYDROBROMIDE 10 MG PO SCH (10:00)
[2017-05-01] MEDS: FAMOTIDINE INJ/PF 20 MG/2 ML SDV IV SCH (10:48)
[2017-05-01] MEDS: ASPIRIN 81 MG TABLET, ENT COATED PO SCH (10:48)
[2017-05-01] MEDS: NITROGLYCERIN 0.4 MG/TAB 25 TAB/BOTTLE SL PRN (10:48)
--- NOTE | 2017-05-01 14:22 | PDOC PROGRESS REPORT ---
Subjective Progress Note for:: 05/01/17 Reason For Visit: PARTIAL SMALL BOWEL OBSTRUCTION DUE TO ADHESIONS Overall feels better, tolerated liquids. No bowel movement. Had one episode of flatus yesterday. Physical Exam Vital Signs: Temp Pulse Resp BP Pulse Ox 98.1 F 55 L 18 141/61 H 100 05/01/17 11:09 05/01/17 11:09 05/01/17 11:09 05/01/17 11:09 05/01/17 11:09 Intake & Output 04/30/17 05/01/17 05/02/17 06:59 06:59 06:59 Intake Total 2534 2927 218 Output Total 2250 1100 Balance 284 1827 218 Weight 68 kg 68 kg General appearance: PRESENT: no acute distress GI/Abdominal exam: PRESENT: other - Soft no peritoneal signs nontender Results Laboratory Results: 04/30/17 06:00 04/30/17 06:00 Impressions: Abdomen/Pelvis CTA 04/28/17 12:07 IMPRESSION: Findings worrisome for partial small bowel obstruction, likely due to adhesions in the periumbilical region No CT evidence of abdominal aortic aneurysm or abdominal aortic dissection Chest/Abdomen CTA 04/28/17 12:07 IMPRESSION: No CT angio evidence of acute pulmonary emboli or thoracic aortic dissection. Mild nonspecific mediastinal adenopathy. No focal infiltrates. KUB X-Ray 04/28/17 15:55 IMPRESSION: Nasogastric tube should be slightly advanced further into the stomach. Abdomen X-Ray 04/30/17 07:00 IMPRESSION: No acute findings. NG tube is in place. Assessment & Plan - Diagnosis (1) Partial small bowel obstruction Is this a current diagnosis for this admission?: Yes Plan: Clinically improved based on patient's symptom complex and physical exam findings. Indications: 1. We will advance diet slowly 2. Dissipate discharge home later today or tomorrow.
[2017-05-01 15:34] VITALS: BP 146/68
== END 2017-05-01 16:14 | disposition home or self-care (01) | DRG 390 ==
LOC: ER 11:53 → EH 14:20 → 3N 17:37
PROVIDERS: ATTEND Surgery
DX: K56.50 Intestinal adhesions [bands], unspecified as to partial versus complete obstruction (principal); I10 Essential (primary) hypertension; E78.5 Hyperlipidemia, unspecified; K21.9 Gastro-esophageal reflux disease without esophagitis; F43.10 Post-traumatic stress disorder, unspecified; F32.9 Major depressive disorder, single episode, unspecified; M19.90 Unspecified osteoarthritis, unspecified site; Z79.82 Long term (current) use of aspirin; Z79.899 Other long term (current) drug therapy; Z90.710 Acquired absence of both cervix and uterus; Z91.041 Radiographic dye allergy status; Z86.73 Personal history of transient ischemic attack (TIA), and cerebral infarction without residual deficits
CPT/HCPCS: 36415; 71275; 74018; 74019; 74174; 80048; 80053; 81001; 82550; 82803; 82962; 83605; 83690; 83880; 84484; 85025; 85027; 93005; 93010; 96361; 96374; 96375; 99285; J1200; J2250; J2270; J2405; J2930; J3010; J3480; J3490; J7030; S0028

== ENCOUNTER 2017-05-07 02:34 | Inpatient (IN) | payer MEDICAID ==
--- NOTE | 2017-05-07 02:41 | ER Document Report ---
ED GI/ - General Chief Complaint: Abdominal Pain Stated Complaint: STOMACH PAIN Time Seen by Provider: 05/07/17 02:36 Mode of Arrival: Medic Information source: Patient TRAVEL OUTSIDE OF THE [place] IN LAST 30 DAYS: No - HPI Notes: 05/07/17 02:42 62-year-old female with history of multiple abdominal surgeries as noted below. Recently discharged 6 days ago after spontaneous resolution of a partial small bowel obstruction. She states she had improved had only loose stools, one formed but pretty much only diarrhea since then. She developed abdominal pain oriented in the umbilical region that she describes as sharp and burning. This started yesterday but today she has had repetitive vomiting mostly bilious. CT scan at the time of admission showed what appeared to be a small bowel obstruction likely due to adhesions in the umbilical region. She denies fever but has had some chills. Denies any cough or cold symptoms rhinorrhea or sore throat. Denies any specific chest pain or breathing difficulty. She did have her last small bowel obstruction otherwise apparently in October of last year. Reports: Adenoidectomy, Appendectomy, Hysterectomy, Orthopedic Surgery - carpal tunnel, Other - Sigmoid colectomy, rectopexy Dr. Fowler 2013; abdominal wall hernia surg - Related Data Allergies/Adverse Reactions: IVP dye Allergy (Intermediate, Uncoded 04/28/17 16:10) rash Past Medical History - Social History Smoking Status: Never Smoker Family History: CAD - Past Medical History Cardiac Medical History: Reports: Hx Hypercholesterolemia, Hx Hypertension Pulmonary Medical History: Reports: Hx Pneumonia - left lung scarring Denies: Hx Asthma, Hx Bronchitis, Hx COPD, Hx Respiratory Failure, Hx Sleep Apnea, Hx Tuberculosis Neurological Medical History: Reports: Hx Cerebrovascular Accident - Patient reports "mini stroke" Endocrine Medical History: Denies: Hx Diabetes Mellitus Type 1, Hx Diabetes Mellitus Type 2 Renal/ Medical History: Denies: Hx End Stage Renal Disease, Hx Kidney Stones, Hx Ovarian Cysts, Hx Peritoneal Dialysis Malignancy Medical History: Denies: Hx Breast Cancer, Hx Cervical Cancer, Hx Leukemia, Hx Lung Cancer, Hx Ovarian Cancer GI Medical History: Reports: Hx Gastroesophageal Reflux Disease, Hx Ulcer. Denies: Hx Crohn's Disease, Hx Hiatal Hernia, Hx Irritable Bowel, Hx Liver Failure, Hx Pancreatitis Musculoskeltal Medical History: Reports Hx Arthritis, Denies Hx Fibromyalgia, Denies Hx Multiple Sclerosis, Denies Hx Muscular Dystrophy Psychiatric Medical History: Reports: Hx Depression, Hx Post Traumatic Stress Disorder Denies: Hx Bipolar Disorder, Hx Dementia, Hx Schizophrenia Traumatic Medical History: Reports: Hx Fractures - left wrist Infectious Medical History: Denies: Hx HIV Past Surgical History: Reports: Hx Adenoidectomy, Hx Appendectomy, Hx Hysterectomy, Hx Orthopedic Surgery - carpal tunnel, Other - Sigmoid colectomy, rectopexy Dr. Fowler 2013; abdominal wall hernia surg. Denies: Hx Bowel Surgery, Hx Section, Hx Cholecystectomy, Hx Colostomy, Hx Coronary Artery Bypass Graft, Hx Gastric Bypass Surgery, Hx Herniorrhaphy, Hx Mastectomy , Hx Pacemaker, Hx Tonsillectomy, Hx Tubal Ligation - Immunizations Hx Diphtheria, Pertussis, Tetanus Vaccination: Yes Review of Systems - Review of Systems -: Yes All other systems reviewed and negative Physical Exam - Vital signs Vitals: Resp Pulse Ox 11 L 98 05/07/17 02:44 05/07/17 02:44 Notes: See nurse's note - Notes Notes: GENERAL: VS as per nursing doc. well-nourished female in obvious distress with active vomiting HEAD: Atraumatic, normocephalic. EYES: Pupils equal round and reactive to light, extraocular movements intact, sclera anicteric, no conjunctival injection or discharge. ENT: Nares patent, oropharynx clear without exudates, somewhat dry mucous membranes. NECK: Normal range of motion, supple without lymphadenopathy. LUNGS: Breath sounds clear to auscultation bilaterally and equal. No wheezes rales or rhonchi. HEART: Regular rate and rhythm without murmurs. ABDOMEN: Soft, generalized abdominal tenderness more in the periumbilical region. Bowel sounds are very hypoactive with some "tinkling" noted. No guarding, no rebound. No masses appreciated. No Livingston sign. BACK: No CVA tenderness. EXTREMITIES: Normal range of motion, no calf tenderness, no edema. NEUROLOGICAL: Cranial nerves grossly intact. Normal speech. Normal sensory and motor exams. No gross cerebellar abnormalities. PSYCH: Normal mood, normal affect. SKIN: Warm, dry. Course - Vital Signs Vital signs: Temp Pulse Resp BP Pulse Ox 15 130/80 H 96 05/07/17 06:00 05/07/17 05:01 05/07/17 06:00 - Laboratory Result Diagrams: 05/07/17 02:55 05/07/17 02:55 Laboratory results interpreted by me: 05/07/17 05/07/17 05/07/17 02:55 02:55 05:38 WBC 11.0 H Seg Neutrophils % 85.2 H Lymphocytes % 9.7 L Absolute Neutrophils 9.4 H Carbon Dioxide 19 L Glucose 173 H Calcium 10.9 H Urine Ketones 20 H Ur Leukocyte Esterase SMALL H - Diagnostic Test Radiology reviewed: Image reviewed, Reports reviewed - CT consistent with small bowel obstruction. - EKG Interpretation by Me EKG shows normal: Sinus rhythm - Rate 67, normal QRS, normal intervals, no clear ischemia. - Consults Dr. Beaulieu Time consulted: 04:04 - Dr. Beaulieu would like the CT repeated with Oral Contrast Dr. Beaulieu 2 Time consulted: 06:40 Consulted provider: will come to ER - Will see and eval patient. Discharge - Discharge Clinical Impression: Small bowel obstruction, partial Condition: Good Admitting Provider: Dr. Beaulieu
[2017-05-07] MEDS ORDERED: NORMAL SALINE 1000 ML 1,000 ML IV ONE (02:47)
[2017-05-07] MEDS ORDERED: HYDROMORPHONE HCL INJ/PF 2 MG/ML AMPULE IV ONE (02:47)
[2017-05-07] MEDS ORDERED: ONDANSETRON HCL INJ/PF 4 MG/2 ML SDV IV ONE ×2 (02:47→04:22)
[2017-05-07 03:11] LABS: ABSOLUTE LYMPHOCYTES (AUTO) 1.1 10^3/uL (0.5-4.7); ABSOLUTE MONOCYTES (AUTO) 0.5 10^3/uL (0.1-1.4); ABSOLUTE NEUT (AUTO) 9.4 10^3/uL (1.7-8.2); BASOPHILS % (AUTO) 0.4 % (0-2); EOSINOPHILS % (AUTO) 0.3 % (0-6); HEMATOCRIT 42.7 % (36.0-47.0); HEMOGLOBIN 14.7 g/dL (12.0-15.5); LYMPHOCYTES % (AUTO) 9.7 % (13-45); MEAN CORPUSCULAR HGB CONC 34.5 g/dL (32.0-36.0); MEAN CORPUSCULAR VOLUME 87 fl (80-97); MONOCYTES % (AUTO) 4.4 % (3-13); PLATELET COUNT 285 10^3/uL (150-450); RED CELL DISTRIBUTION WIDTH 13.2 % (11.5-14.0); SEGMENTED NEUTROPHILS % (AUTO) 85.2 % (42-78); TOTAL CELLS COUNTED % (AUTO) 100 %
[2017-05-07 03:29] LABS: ALANINE AMINOTRANSFERASE 24 U/L (9-52); ALBUMIN 4.8 g/dL (3.5-5.0); ALKALINE PHOSPHATASE 64 U/L (38-126); ANION GAP 13 (5-19); ASPARTATE AMINO TRANSFERASE 22 U/L (14-36); BILIRUBIN,DIRECT 0.4 mg/dL (0.0-0.4); BLOOD UREA NITROGEN 10 mg/dL (7-20); CALCIUM 10.9 mg/dL (8.4-10.2); CARBON DIOXIDE 19 mmol/L (22-30); CHLORIDE 105 mmol/L (98-107); GLUCOSE 173 mg/dL (75-110); LIPASE 83.2 U/L (23-300); POTASSIUM 4.1 mmol/L (3.6-5.0); SODIUM 137.4 mmol/L (137-145); TOTAL PROTEIN 7.6 g/dL (6.3-8.2)
--- NOTE | 2017-05-07 04:15 | RADIOLOGY REPORT (SQ) ---
EXAM DESCRIPTION: CHEST SINGLE VIEW CLINICAL HISTORY: 62 years, Female, Abd pain COMPARISON: 17. FINDINGS: Moderate lung volume, clear parenchyma, normal cardiac silhouette, and mild dextroconvexity. IMPRESSION: No acute cardiopulmonary findings. 2011 [employer]- All Rights Reserved
--- NOTE | 2017-05-07 04:20 | RADIOLOGY REPORT (SQ) ---
EXAM DESCRIPTION: ABDOMEN 2 VIEWS CLINICAL HISTORY: 62 years, Female, Vomiting COMPARISON: 04/30/2017 NUMBER OF VIEWS: Two LIMITATIONS: None. FINDINGS: Paucity of bowel gas. Left paracentral pelvic suture material. Right upper abdominal clips. Mild disc desiccation. IMPRESSION: No acute findings. 2011 [employer]- All Rights Reserved
[2017-05-07 06:12] LABS: APPEARANCE,URINE SLIGHTLY-CLOUDY; BILIRUBIN,URINE NEGATIVE (NEGATIVE); COLOR,URINE YELLOW; GLUCOSE, URINE NEGATIVE (NEGATIVE); KETONES,URINE 20 mg/dL (NEGATIVE); LEUKOCYTE ESTERASE,URINE SMALL (NEGATIVE); NITRITE,URINE NEGATIVE (NEGATIVE); PROTEIN,URINE NEGATIVE (NEGATIVE); URINE SPECIFIC GRAVITY 1.015; UROBILINOGEN,URINE NEGATIVE mg/dL (<2.0)
--- NOTE | 2017-05-07 06:31 | RADIOLOGY REPORT (SQ) ---
EXAM DESCRIPTION: CT ABD/PELVIS ORAL ONLY CLINICAL HISTORY: 62 years Female, Abd pain vomiting, recent SBO, Surgeon request COMPARISON: CR, same day. TECHNIQUE: No IV contrast. Oral contrast only. Coronal and sagittal reformat. This exam was performed according to our departmental dose-optimization program, which includes automated exposure control, adjustment of the mA and/or kV according to patient size and/or use of iterative reconstruction technique. FINDINGS: Mild dilated small bowel measuring up to 3.2 cm in diameter with air-fluid levels in the right paracentral abdomen. No identified zone of transition. No significant free fluid. No free air. Orally ingested contrast is seen to the level of the mid jejunum which is of normal caliber. Small right middle lobe basilar atelectasis-scar. Atherosclerosis. Cholecystectomy clips. Small scar along the midline of the anterior abdominal wall. 2.3 cm cystic/seromatous fluid collection of the left inguinal canal. Splenule. Unenhanced inferior chest, intra-abdominal/intrapelvic structures, and musculoskeleton appear otherwise grossly intact. IMPRESSION: Mild dilated small bowel with air-fluid levels. Differential diagnosis includes ileus and low grade small bowel obstruction.
[2017-05-07] MEDS ORDERED: LIDOCAINE 4% INJ/PF (40 MG/ML) 5 ML AMPUL TOP ONE (06:46)
[2017-05-07] MEDS ORDERED: BENZOCAINE 20% AEROSOL SPRAY 60 GM TP ONE (06:47)
[2017-05-07] MEDS ORDERED: MIDAZOLAM 2 MG/2 ML INJ IV ONE (06:47)
--- NOTE | 2017-05-07 07:54 | RADIOLOGY REPORT (SQ) ---
EXAM DESCRIPTION: CHEST SINGLE VIEW COMPLETED DATE/TIME: 05/07/2017 7:43 am REASON FOR STUDY: NGT placement verification COMPARISON: Chest films 10/10/2016, 05/07/2017 CT chest 04/28/2017 EXAM PARAMETERS: NUMBER OF VIEWS: One view. TECHNIQUE: Single frontal radiographic view of the chest acquired. RADIATION DOSE: NA LIMITATIONS: None. FINDINGS: LUNGS AND PLEURA: No opacities, masses or pneumothorax. No pleural effusion. MEDIASTINUM AND HILAR STRUCTURES: No masses. Contour normal. HEART AND VASCULAR STRUCTURES: Stable mild cardiomegaly BONES: No acute findings. HARDWARE: Nasogastric tube tip and side port in the stomach. Mild gaseous distension of stomach and small bowel under the hemidiaphragms OTHER: No other significant finding. IMPRESSION: Interval placement of a nasogastric tube with the tip and side port in the stomach. No acute infiltrates TECHNICAL DOCUMENTATION: JOB ID: [id number] [employer]- All Rights Reserved
[2017-05-07] MEDS ORDERED: MAGNESIUM CITRATE 296 ML BOTTLE PO ONE (08:31)
[2017-05-07] MEDS ORDERED: NA PHOS,M-B/NA PHOS,DI-BA (ADULT) 133 ML ENEMA PR ONE (08:31)
--- NOTE | 2017-05-07 08:31 | PDOC H&P ---
History of Present Illness Patient complains of: Abdominal pain History of Present Illness: CARMEN HORTON is a 62 year old female with several year history of intermittent crampy severe abdominal pain along with nausea and occasional emesis as well as chronic constipation. She has had endoscopic workup in the past which according to the patient only demonstrated small colon polyp several months ago. She has been diagnosed with irritable bowel syndrome with constipation. Despite medical therapy she has had continued abdominal symptoms. She was recently admitted for possible partial small bowel obstruction which was managed conservatively and was discharged to home this week. However she had recurrent symptoms. She took Linzess yesterday and had several liquid bowel movements. She also developed crampy abdominal pain and had emesis. With the recurrence of her symptoms she came back through the emergency room. Patient has had multiple abdominal surgeries including colon resection for what sounds like diverticulitis as well as ventral hernia repair. Most recently with mesh. She thinks that she has had a cholecystectomy but I do not see any records of this procedure being performed. Past Medical History Cardiac Medical History: Reports: Hyperlipidema, Hypertension Pulmonary Medical History: Reports: Pneumonia - left lung scarring Denies: Asthma, Bronchitis, Chronic Obstructive Pulmonary Disease (COPD), Respiratory Failure, Sleep Apnea, Tuberculosis Endocrine Medical History: Denies: Diabetes Mellitus Type 1, Diabetes Mellitus Type 2 Renal/ Medical History: Denies: End Stage Renal Disease Malignancy Medical History: Denies: Breast Cancer, Cervical Cancer, Leukemia, Lung Cancer, Ovarian Cancer GI Medical History: Reports: Gastroesophageal Reflux Disease Denies: Crohn's Disease, Hiatal Hernia Musculoskeltal Medical History: Reports: Arthritis Denies: Fibromyalgia Psychiatric Medical History: Reports: Depression, Post Traumatic Stress Disorder Denies: Bipolar Disorder, Dementia Hematology: Denies: Anemia, Hemophilia, Sickle Cell Disease Infectious Medical History: Denies: HIV Past Surgical History Past Surgical History: Reports: Adenoidectomy, Appendectomy, Hysterectomy, Orthopedic Surgery - carpal tunnel, Other - Sigmoid colectomy, rectopexy Dr. Fowler 2013; abdominal wall hernia surg Denies: Amputation, Section, Cholecystectomy, Colostomy, Coronary Artery Bypass Graft, Gastric Bypass Surgery, Herniorrhaphy, Mastectomy, Pacemaker, Tonsillectomy, Tubal Ligation Social History Smoking Status: Never Smoker Frequency of Alcohol Use: None Hx Recreational Drug Use: No Drugs: None Hx Prescription Drug Abuse: No Family History Family History: CAD Parental Family History Reviewed: No Children Family History Reviewed: No Sibling(s) Family History Reviewed.: No Medication/Allergy Allergies/Adverse Reactions: IVP dye Allergy (Intermediate, Uncoded 04/28/17 16:10) rash Physical Exam Vital Signs: Temp Pulse Resp BP Pulse Ox 13 123/86 H 96 05/07/17 06:14 05/07/17 06:14 05/07/17 06:14 Intake & Output 05/06/17 05/07/17 05/08/17 06:59 06:59 06:59 Output Total 250 Balance -250 Weight 65.9 kg Results Laboratory Results: 05/07/17 02:55 05/07/17 02:55 05/07/17 05/07/17 05/07/17 02:55 02:55 05:38 WBC 11.0 H RBC 4.90 Hgb 14.7 Hct 42.7 MCV 87 MCH 30.0 MCHC 34.5 RDW 13.2 Plt Count 285 Seg Neutrophils % 85.2 H Lymphocytes % 9.7 L Monocytes % 4.4 Eosinophils % 0.3 Basophils % 0.4 Absolute Neutrophils 9.4 H Absolute Lymphocytes 1.1 Absolute Monocytes 0.5 Absolute Eosinophils 0.0 Absolute Basophils 0.0 Sodium 137.4 Potassium 4.1 Chloride 105 Carbon Dioxide 19 L Anion Gap 13 BUN 10 Creatinine 0.79 Est GFR ( Amer) > 60 Est GFR (Non-Af Amer) > 60 Glucose 173 H Calcium 10.9 H Total Bilirubin 1.0 AST 22 ALT 24 Alkaline Phosphatase 64 Total Protein 7.6 Albumin 4.8 Lipase 83.2 Urine Color YELLOW Urine Appearance SLIGHTLY-CLOUDY Urine pH 5.0 Ur Specific [place] 1.015 Urine Protein NEGATIVE Urine Glucose (UA) NEGATIVE Urine Ketones 20 H Urine Blood NEGATIVE Urine Nitrite NEGATIVE Ur Leukocyte Esterase SMALL H Urine WBC (Auto) 3 Urine RBC (Auto) 1 Impressions: Abdomen/Pelvis CT 05/07/17 00:00 IMPRESSION: Mild dilated small bowel with air-fluid levels. Differential diagnosis includes ileus and low grade small bowel obstruction. Abdomen X-Ray 05/07/17 02:37 IMPRESSION: No acute findings. 2010 [employer]- All Rights Reserved Chest X-Ray 05/07/17 02:37 IMPRESSION: No acute cardiopulmonary findings. 2010 [employer]- All Rights Reserved Assessment & Plan - Diagnosis (1) Constipation Is this a current diagnosis for this admission?: Yes Plan: In reviewing the CT scan there is some very mild dilated loops of bowel with no transition point. I do not think that she has mechanical bowel obstruction. She has had symptoms for several years. I believe her symptoms are related with her constipation and irritable bowel syndrome. We will plan to admit the patient, give her magnesium citrate and enemas. However in light of her recurrent admission for same abdominal issues, I think it would be beneficial in her management to obtain a enteroclysis during this admission to once and for all rule out adhesive partial small bowel obstruction.
--- NOTE | 2017-05-07 09:41 | EKG REPORT ---
SEVERITY:- NORMAL ECG - SINUS RHYTHM : Confirmed by: Jose M Rome 07-May-2017 09:40:55
[2017-05-07] MEDS: ONDANSETRON HCL INJ/PF 4 MG/2 ML SDV IV PRN ×3 (10:33→20:10)
[2017-05-07] MEDS: ENOXAPARIN SODIUM INJ 40 MG/0.4 ML DISP.SYRIN SUBCUT SCH (10:33)
[2017-05-07] MEDS: HYDROMORPHONE HCL INJ/PF 2 MG/ML AMPULE IV PRN ×2 (15:23→20:11)
[2017-05-08] MEDS: HYDROMORPHONE HCL INJ/PF 2 MG/ML AMPULE IV PRN ×6 (01:07→21:59)
[2017-05-08] MEDS: ONDANSETRON HCL INJ/PF 4 MG/2 ML SDV IV PRN ×5 (01:07→20:52)
[2017-05-08] MEDS: NORMAL SALINE 1000 ML 1,000 ML IV PRN ×2 (01:08→11:20)
[2017-05-08 07:26] LABS: HEMOGLOBIN 13.6 g/dL (12.0-15.5); MEAN CORPUSCULAR HEMOGLOBIN 30.4 pg (27.0-33.4); MEAN CORPUSCULAR HGB CONC 33.9 g/dL (32.0-36.0); MEAN CORPUSCULAR VOLUME 90 fl (80-97); PLATELET COUNT 206 10^3/uL (150-450); RED BLOOD COUNT 4.47 10^6/uL (3.72-5.28); RED CELL DISTRIBUTION WIDTH 13.5 % (11.5-14.0); WHITE BLOOD COUNT 4.2 10^3/uL (4.0-10.5)
[2017-05-08 07:35] LABS: ANION GAP 10 (5-19); BLOOD UREA NITROGEN 7 mg/dL (7-20); CALCIUM 8.8 mg/dL (8.4-10.2); CARBON DIOXIDE 26 mmol/L (22-30); CHLORIDE 106 mmol/L (98-107); GLUCOSE 84 mg/dL (75-110); SODIUM 141.7 mmol/L (137-145)
--- NOTE | 2017-05-08 08:26 | RADIOLOGY REPORT (SQ) ---
EXAM DESCRIPTION: ABDOMEN 2 VIEWS COMPLETED DATE/TIME: 05/08/2017 8:12 am REASON FOR STUDY: abdominal pain COMPARISON: 05/07/2017 NUMBER OF VIEWS: Two views. TECHNIQUE: Supine and erect/decubitus radiographic images of the abdomen acquired. LIMITATIONS: None. FINDINGS: FREE AIR: None. No abnormal gas collections. LUNG BASES: Clear. BOWEL GAS PATTERN: Persistent dilated small bowel loops right upper quadrant suspicious for obstructi on. CALCIFICATIONS: No suspicious calcifications. SOFT TISSUES: No gross mass or suggestion of organomegaly. HARDWARE: Stable. BONES: No acute fracture. No worrisome bone lesions. OTHER: No other significant finding. IMPRESSION: PERSISTENT DILATED SMALL BOWEL LOOPS RIGHT UPPER QUADRANT SUSPICIOUS FOR OBSTRUCTION. TECHNICAL DOCUMENTATION: JOB ID: [id number] [employer]- All Rights Reserved
[2017-05-08] MEDS: ENOXAPARIN SODIUM INJ 40 MG/0.4 ML DISP.SYRIN SUBCUT SCH (10:07)
[2017-05-08] MEDS ORDERED: DEXTROSE 40% GEL 15 GM TUBE PO PRN ×2 (13:54)
[2017-05-08] MEDS ORDERED: GLUCAGON,HUMAN RECOMB 1 MG INJ SUBCUT PRN (13:54)
[2017-05-08] MEDS ORDERED: DEXTROSE 50%-WATER 25 GM/50 ML DISP.SYRIN IV PRN ×2 (13:54)
--- NOTE | 2017-05-08 14:04 | PDOC PROGRESS REPORT ---
Subjective Progress Note for:: 05/08/17 Subjective:: Patient feels bloated and has discomfort after clear liquids; she had flatus and small bowel movement last evening, no bowel function since then Reason For Visit: ABDOMINAL PAIN,NAUSEA,VOMITING,CONSTIPATION Physical Exam Vital Signs: Temp Pulse Resp BP Pulse Ox 98.3 F 63 18 133/66 H 97 05/08/17 12:06 05/08/17 12:06 05/08/17 12:06 05/08/17 12:06 05/08/17 12:06 Intake & Output 05/07/17 05/08/17 05/09/17 06:59 06:59 06:59 Intake Total 350 Balance 350 Weight 61.9 kg General appearance: PRESENT: mild distress Respiratory exam: PRESENT: clear to auscultation alice Cardiovascular exam: PRESENT: RRR GI/Abdominal exam: PRESENT: distended, normal bowel sounds, soft Results Laboratory Results: 05/08/17 06:59 05/08/17 06:59 05/08/17 05/08/17 06:59 06:59 WBC 4.2 RBC 4.47 Hgb 13.6 Hct 40.0 MCV 90 MCH 30.4 MCHC 33.9 RDW 13.5 Plt Count 206 Sodium 141.7 Potassium 4.0 Chloride 106 Carbon Dioxide 26 Anion Gap 10 BUN 7 Creatinine 0.67 Est GFR ( Amer) > 60 Est GFR (Non-Af Amer) > 60 Glucose 84 Calcium 8.8 Impressions: Abdomen/Pelvis CT 05/07/17 00:00 IMPRESSION: Mild dilated small bowel with air-fluid levels. Differential diagnosis includes ileus and low grade small bowel obstruction. Chest X-Ray 05/07/17 02:37 IMPRESSION: No acute cardiopulmonary findings. 2010 [employer]- All Rights Reserved Abdomen X-Ray 05/08/17 07:00 IMPRESSION: PERSISTENT DILATED SMALL BOWEL LOOPS RIGHT UPPER QUADRANT SUSPICIOUS FOR OBSTRUCTION. Assessment & Plan - Plan Summary Plan Summary: A/ Symptoms, PE and Xray findings are not conclusive for surgical vs. medical condition P/ Repeat CT scan A/P with oral contrast only, wait 3 hrs before scanning to r/o obstruction NPO Increase IVF 125 mL/hr
--- NOTE | 2017-05-08 22:10 | RADIOLOGY REPORT (SQ) ---
EXAM DESCRIPTION: CT ABD/PELVIS ORAL ONLY COMPLETED DATE/TIME: 05/08/2017 5:07 pm REASON FOR STUDY: SBO/wait 3 hrs before scanning after oral contrast COMPARISON: CT abdomen and pelvis 05/07/2017 TECHNIQUE: CT scan of the abdomen and pelvis performed with oral contrast. Images reviewed with lung , soft tissue, and bone windows. Reconstructed coronal and sagittal MPR images reviewed. All images s tored on PACS. All CT scanners at this facility use dose modulation, iterative reconstruction, and/or weight based d osing when appropriate to reduce radiation dose to as low as reasonably achievable (ALARA). [facility]: Dose Right [facility]: CareDose [facility]: Dose Right [facility]: Teradose 4D [facility]: [place] RADIATION DOSE: CT Rad equipment meets quality standard of care and radiation dose reduction techniq ues were employed. CTDIvol: 7.2 mGy. DLP: 356 mGy-cm.mGy. LIMITATIONS: None. FINDINGS: LOWER CHEST: No significant findings. No nodules or infiltrates. NON-CONTRASTED LIVER, SPLEEN, ADRENALS: Evaluation limited by lack of IV contrast. No identified sign ificant masses. PANCREAS: No masses. No peripancreatic inflammatory changes. GALLBLADDER: Surgically absent. RIGHT KIDNEY AND URETER: No suspicious masses. Assessment limited by lack of IV contrast. No signif icant calcifications. No hydronephrosis or hydroureter. LEFT KIDNEY AND URETER: No suspicious masses. Assessment limited by lack of IV contrast. No signifi cant calcifications. No hydronephrosis or hydroureter. AORTA AND RETROPERITONEUM: No aneurysm. No retroperitoneal masses or adenopathy. BOWEL AND PERITONEAL CAVITY: Previously described dilated loops of small bowel demonstrate improvemen t in appearance. Ingested enteric contrast is seen throughout the bowel, to the level of the rectum. There is no evidence of obstruction or ileus on today's examination. APPENDIX: Not visualized. PELVIS, BLADDER, AND ABDOMINAL WALL:No abnormal masses. No free fluid. Bladder normal. BONES: No significant findings. OTHER: No other significant finding. IMPRESSION: Interval reduction in previously described dilated loops of small bowel within the right hemiabdomen. No evidence of obstruction or ileus on today's examination. COMMENT: Quality ID # [id number]: Final reports with documentation of one or more dose reduction techniques (e.g., Automated exposure control, adjustment of the mA and/or kV according to patient size, use of iterative reconstruction technique) TECHNICAL DOCUMENTATION: JOB ID: [id number] [facility]- All Rights Reserved
[2017-05-09] MEDS: HYDROMORPHONE HCL INJ/PF 2 MG/ML AMPULE IV PRN ×4 (02:46→10:48)
[2017-05-09] MEDS: ONDANSETRON HCL INJ/PF 4 MG/2 ML SDV IV PRN ×5 (02:46→18:34)
[2017-05-09] MEDS: ENOXAPARIN SODIUM INJ 40 MG/0.4 ML DISP.SYRIN SUBCUT SCH (09:33)
--- NOTE | 2017-05-09 10:36 | PDOC PROGRESS REPORT ---
Subjective Progress Note for:: 05/09/17 Subjective:: Patient on full liquid diet, still c/o occasional postprandial nausea and lower abdominal discomfort; two liquid stools last evening Reason For Visit: ABDOMINAL PAIN,NAUSEA,VOMITING,CONSTIPATION Physical Exam Vital Signs: Temp Pulse Resp BP Pulse Ox 98.2 F 61 17 137/64 H 97 05/09/17 08:00 05/09/17 08:00 05/09/17 08:00 05/09/17 08:00 05/09/17 08:00 Intake & Output 05/08/17 05/09/17 05/10/17 06:59 06:59 06:59 Intake Total 350 2652 Output Total 1700 Balance 350 952 Weight 61.9 kg 62.3 kg General appearance: PRESENT: no acute distress Respiratory exam: PRESENT: clear to auscultation alice Cardiovascular exam: PRESENT: RRR GI/Abdominal exam: PRESENT: distended, soft, tenderness - lowe abdomen Results Laboratory Results: 05/08/17 06:59 05/08/17 06:59 Impressions: Chest X-Ray 05/07/17 02:37 IMPRESSION: No acute cardiopulmonary findings. 2010 [email or web address]- All Rights Reserved Abdomen/Pelvis CT 05/08/17 00:00 IMPRESSION: Interval reduction in previously described dilated loops of small bowel within the right hemiabdomen. No evidence of obstruction or ileus on today's examination. Abdomen X-Ray 05/08/17 07:00 IMPRESSION: PERSISTENT DILATED SMALL BOWEL LOOPS RIGHT UPPER QUADRANT SUSPICIOUS FOR OBSTRUCTION. Assessment & Plan - Diagnosis (2) Diarrhea Qualifiers: Diarrhea type: presumed infectious Qualified Code(s): R19.7 - Diarrhea, unspecified Is this a current diagnosis for this admission?: Yes - Plan Summary Plan Summary: A/ [id number] still c/o lower abdominal discomfort and bloating Full liquid diet tolerated two bouts of diarrhea last evening, negative for C. Difficilis CT scan A/P with oral contrast shows improvement of small bowel loops, but no evidence of bowel obstruction or ileus P/ No acute General Surgery issues identified and no intervention planned D/w Hospitalist Busteed: I will transfer patient under his service
[2017-05-09] MEDS ORDERED: FLUTICASONE NASAL SPRAY 50 MCG/SPRY 120 SPRAY/16 GM NASL PRN (12:43)
[2017-05-09] MEDS ORDERED: NITROGLYCERIN 0.4 MG/TAB 25 TAB/BOTTLE SL PRN (12:43)
[2017-05-09] MEDS: HYDROCODONE/ACETAMINOPHEN 5-325 MG TABLET PO PRN ×2 (14:28→18:34)
[2017-05-09] MEDS: NORMAL SALINE 1000 ML 1,000 ML IV PRN ×2 (14:33→22:06)
--- NOTE | 2017-05-09 16:46 | PDOC CONSULTATION ---
Consultation Consult Date: 05/09/17 Attending physician:: RUMA CARLSON Consult reason:: Consult to assume care History of Present Illness Admission Date/PCP: 05/07/17 09:51 History of Present Illness: Please see dictated admission note for history of this present illness. In short this is a 62-year-old female who has had multiple abdominal surgeries in the past. She was admitted to the hospital with concerns for a small bowel obstruction or ileus. She was admitted under the general surgery service. Ultimately it is not felt that she has a surgical abdomen and her diet has been successfully advanced. General surgery requested that the hospitalist service take over her care. Today when I saw the patient she is doing well. She is not having any abdominal pain at this point and tolerating a full liquid diet. Past Medical History Cardiac Medical History: Reports: Hyperlipidema, Hypertension Pulmonary Medical History: Reports: Pneumonia - left lung scarring Denies: Asthma, Bronchitis, Chronic Obstructive Pulmonary Disease (COPD), Respiratory Failure, Sleep Apnea, Tuberculosis Endocrine Medical History: Denies: Diabetes Mellitus Type 1, Diabetes Mellitus Type 2 Renal/ Medical History: Denies: End Stage Renal Disease Malignancy Medical History: Denies: Breast Cancer, Cervical Cancer, Leukemia, Lung Cancer, Ovarian Cancer GI Medical History: Reports: Gastroesophageal Reflux Disease Denies: Crohn's Disease, Hiatal Hernia Musculoskeltal Medical History: Reports: Arthritis Denies: Fibromyalgia Psychiatric Medical History: Reports: Depression, Post Traumatic Stress Disorder Denies: Bipolar Disorder, Dementia Hematology: Denies: Anemia, Hemophilia, Sickle Cell Disease Infectious Medical History: Denies: HIV Past Surgical History Past Surgical History: Reports: Adenoidectomy, Appendectomy, Hysterectomy, Orthopedic Surgery - carpal tunnel, Other - Sigmoid colectomy, rectopexy Dr. Fowler 2013; abdominal wall hernia surg Denies: Amputation, Section, Cholecystectomy, Colostomy, Coronary Artery Bypass Graft, Gastric Bypass Surgery, Herniorrhaphy, Mastectomy, Pacemaker, Tonsillectomy, Tubal Ligation Social History Information Source: Patient Lives with: Family Smoking Status: Never Smoker Frequency of Alcohol Use: None Hx Recreational Drug Use: No Drugs: None Hx Prescription Drug Abuse: No - Advance Directive Resuscitation Status: Full Code Family History Family History: CAD, CVA, Malignancy Parental Family History Reviewed: Yes Children Family History Reviewed: Yes Sibling(s) Family History Reviewed.: Yes Medication/Allergy Home Medications: Aspirin [Aspirin EC] 81 mg PO DAILY 05/07/17 Bupropion HCl [Bupropion Xl] 150 mg PO DAILY 05/07/17 Eszopiclone [Lunesta] 3 mg PO QHS 05/07/17 Famotidine [Pepcid 20 mg Tablet] 20 mg PO BID 05/07/17 Fluticasone Propionate [Flonase Nasal [place] 50 Mcg/[place] 16 gm] 1 spray NASL Q12HP PRN 05/07/17 Hydrocodone Bit/Acetaminophen [Hydrocodon-Acetaminophen 5-325] 1 tab PO Q12HP PRN 05/07/17 Ibandronate Sodium [Boniva] 150 mg PO .QMONTHLY 05/07/17 Linaclotide [Linzess] 290 mcg PO DAILY 05/07/17 Nitroglycerin [Nitrostat 0.4 mg (1/150 Gr) Tabs 25/Bottle] 1 tab SL Q5MP PRN Ondansetron HCl [Zofran 4 mg Tablet] 4 mg PO Q8HP PRN 05/07/17 Simvastatin [Zocor 80 mg Tablet] 80 mg PO QHS 05/07/17 Vortioxetine Hydrobromide [Brintellix] 10 mg PO DAILY 05/07/17 Allergies/Adverse Reactions: IVP dye Allergy (Intermediate, Uncoded 04/28/17 16:10) rash Review of Systems Constitutional: ABSENT: chills, fatigue, headache(s), night sweats Eyes: ABSENT: visual disturbances Ears: ABSENT: hearing changes Nose, Mouth, and Throat: ABSENT: headache(s), mouth pain, sore throat Cardiovascular: ABSENT: chest pain, dyspnea on exertion, edema, orthropnea, palpitations Respiratory: ABSENT: cough, dyspnea, sputum Gastrointestinal: PRESENT: abdominal pain - Which seems to be improving, constipation - Resolved at this point. ABSENT: diarrhea, nausea, vomiting Genitourinary: ABSENT: difficulty urinating, dysuria, hematuria Musculoskeletal: ABSENT: back pain Integumentary: ABSENT: lesions, pruritus, rash Psychiatric: ABSENT: anxiety, depression, homidical ideation, suicidal ideation Endocrine: ABSENT: cold intolerance, heat intolerance, polyuria Hematologic/Lymphatic: ABSENT: easy bleeding, easy bruising Physical Exam Vital Signs: Temp Pulse Resp BP Pulse Ox 98.3 F 65 16 146/74 H 98 05/09/17 16:00 05/09/17 16:00 05/09/17 16:00 05/09/17 16:00 05/09/17 16:00 Intake & Output 05/08/17 05/09/17 05/10/17 06:59 06:59 06:59 Intake Total 350 2652 Output Total 1700 Balance 350 952 Weight 61.9 kg 62.3 kg General appearance: PRESENT: no acute distress, well-developed, well-nourished Head exam: PRESENT: atraumatic, normocephalic Eye exam: PRESENT: conjunctiva pink, EOMI, PERRLA. ABSENT: scleral icterus Ear exam: PRESENT: normal external ear exam Mouth exam: PRESENT: moist, tongue midline Throat exam: ABSENT: post pharyngeal erythema, tonsillar erythema, tonsillar exudate Neck exam: ABSENT: carotid bruit, JVD, lymphadenopathy, thyromegaly Respiratory exam: PRESENT: clear to auscultation alice. ABSENT: rales, rhonchi, wheezes Cardiovascular exam: PRESENT: RRR. ABSENT: diastolic murmur, rubs, systolic murmur Pulses: PRESENT: normal dorsalis pedis pul Vascular exam: PRESENT: normal capillary refill GI/Abdominal exam: PRESENT: normal bowel sounds, soft. ABSENT: distended, guarding, mass, organolmegaly, rebound, tenderness Rectal exam: PRESENT: deferred Extremities exam: PRESENT: full ROM. ABSENT: calf tenderness, clubbing, pedal edema Musculoskeletal exam: PRESENT: ambulatory Neurological exam: PRESENT: alert, awake, oriented to person, oriented to place , oriented to time, oriented to situation, CN II-XII grossly intact. ABSENT: motor sensory deficit Psychiatric exam: PRESENT: appropriate affect, normal mood. ABSENT: homicidal ideation, suicidal ideation Skin exam: PRESENT: dry, intact, warm. ABSENT: cyanosis, rash Results Laboratory Results: 05/08/17 06:59 05/08/17 06:59 Impressions: Chest X-Ray 05/07/17 02:37 IMPRESSION: No acute cardiopulmonary findings. 2010 [employer] All Rights Reserved Abdomen/Pelvis CT 05/08/17 00:00 IMPRESSION: Interval reduction in previously described dilated loops of small bowel within the right hemiabdomen. No evidence of obstruction or ileus on today's examination. Abdomen X-Ray 05/08/17 07:00 IMPRESSION: PERSISTENT DILATED SMALL BOWEL LOOPS RIGHT UPPER QUADRANT SUSPICIOUS FOR OBSTRUCTION. Assessment & Plan - Diagnosis (1) Partial small bowel obstruction Is this a current diagnosis for this admission?: Yes Plan: Versus ileus, resolving. She does not have a surgical abdomen at this point. I am going to advance her diet and stop her IV fluids. We will see how she does overnight. If she remains stable she may be able to go home tomorrow (2) Constipation Is this a current diagnosis for this admission?: Yes Plan: Resolved. She was treated by the general surgery service. (3) Hx of hyperlipidemia Is this a current diagnosis for this admission?: Yes Plan: She will be started back on her home medications (4) Depression Is this a current diagnosis for this admission?: Yes Plan: She will be started back on her home regimen. (5) Chronic pain Is this a current diagnosis for this admission?: Yes Plan: She has chronic pain with continuous narcotic use at home. She has a prescription for as needed pain medications but takes it on a regular basis. I am going to stop her IV Dilaudid and we will place her back on hydrocodone every 4 hours as needed. (6) Full code status Is this a current diagnosis for this admission?: Yes - Time Time Spent: 30 to 50 Minutes - Inpatient Certification Medical Necessity: Other - Inpatient hospitalization remains necessary. We need to further advance the patient's diet and make sure she can maintain her hydration off of IV fluids. We are happy to take this patient under the hospitalist service. Hopefully she can be discharged as early as tomorrow.
[2017-05-09] MEDS ORDERED: FAMOTIDINE 20 MG TABLET PO SCH (18:00)
[2017-05-09] MEDS ORDERED: LANSOPRAZOLE 30 MG TAB.RAP.DR PO ONE (18:00)
[2017-05-09] MEDS: SIMVASTATIN 40 MG TABLET PO SCH (21:23)
[2017-05-09] MEDS: FAMOTIDINE 20 MG TABLET PO SCH (21:23)
[2017-05-09] MEDS: BUPROPION HCL 75 MG TABLET PO SCH (21:23)
[2017-05-09] MEDS ORDERED: (PENDING PHARMACY ID) (Simvastatin [Zocor 80 Mg Tablet] 80 MG) PO SCH (22:00)
[2017-05-09] MEDS ORDERED: ZOLPIDEM TARTRATE 5 MG TABLET PO PRN (22:48)
[2017-05-10] MEDS: ONDANSETRON HCL INJ/PF 4 MG/2 ML SDV IV PRN ×4 (02:24→22:09)
[2017-05-10] MEDS: HYDROCODONE/ACETAMINOPHEN 5-325 MG TABLET PO PRN ×5 (02:25→22:30)
[2017-05-10] MEDS: NORMAL SALINE 1000 ML 1,000 ML IV PRN ×3 (06:12→22:34)
[2017-05-10] MEDS: BUPROPION HCL 75 MG TABLET PO SCH ×2 (09:42→22:07)
[2017-05-10] MEDS: ENOXAPARIN SODIUM INJ 40 MG/0.4 ML DISP.SYRIN SUBCUT SCH (09:42)
[2017-05-10] MEDS: ASPIRIN 81 MG TABLET, ENT COATED PO SCH (09:42)
[2017-05-10] MEDS: FAMOTIDINE 20 MG TABLET PO SCH ×2 (09:42→22:07)
[2017-05-10] MEDS: LANSOPRAZOLE 30 MG TAB.RAP.DR PO SCH (09:42)
[2017-05-10] MEDS ORDERED: (PENDING PHARMACY ID) (Vortioxetine Hydrobromide [Trintellix] 10 MG) PO SCH (10:00)
[2017-05-10] MEDS ORDERED: (PENDING PHARMACY ID) (Bupropion Hcl [Bupropion Xl] 150 MG) PO SCH (10:00)
--- NOTE | 2017-05-10 12:12 | PDOC PROGRESS REPORT ---
Subjective Progress Note for:: 05/10/17 Subjective:: Ruddy mayberry is a 62-year-old female who has had multiple abdominal surgeries in the past. She was admitted to the hospital with concerns for a small bowel obstruction or ileus. She was admitted under the general surgery service. Ultimately it is not felt that she has a surgical abdomen and her diet has been advanced. General surgery requested that the hospitalist service take over her care. Today when I saw the patient she continues to have abdominal pain. She is quite tearful and upset as she states that her abdomen still hurts and that she can only eat in very small amounts because she develops abdominal bloating and pain. She is concerned that she will just go home and have to come right back. She states she feels as if something is wrong. Reason For Visit: ABDOMINAL PAIN,NAUSEA,VOMITING,CONSTIPATION Physical Exam Vital Signs: Temp Pulse Resp BP Pulse Ox 98 F 54 L 16 129/63 H 97 05/10/17 08:00 05/10/17 08:00 05/10/17 08:00 05/10/17 08:00 05/10/17 08:00 Intake & Output 05/09/17 05/10/17 05/11/17 06:59 06:59 06:59 Intake Total 2652 3672 Output Total 1700 Balance 952 3672 Weight 62.3 kg 62.3 kg General appearance: PRESENT: no acute distress, well-developed, well-nourished, other - She is somewhat tearful this morning. Head exam: PRESENT: atraumatic, normocephalic Mouth exam: PRESENT: moist, tongue midline Respiratory exam: PRESENT: clear to auscultation alice. ABSENT: rales, rhonchi, wheezes Cardiovascular exam: PRESENT: RRR. ABSENT: diastolic murmur, rubs, systolic murmur GI/Abdominal exam: PRESENT: hypoactive bowel sounds, soft, tenderness - She has tenderness to palpation diffusely. Rectal exam: PRESENT: deferred Extremities exam: PRESENT: full ROM. ABSENT: calf tenderness, clubbing, pedal edema Neurological exam: PRESENT: alert, awake, oriented to person, oriented to place , oriented to time, oriented to situation, CN II-XII grossly intact. ABSENT: motor sensory deficit Psychiatric exam: PRESENT: anxious, appropriate affect, other - She is quite tearful. ABSENT: homicidal ideation, suicidal ideation Skin exam: PRESENT: dry, intact, warm. ABSENT: cyanosis, rash Results Laboratory Results: 05/08/17 06:59 05/08/17 06:59 Impressions: Chest X-Ray 05/07/17 02:37 IMPRESSION: No acute cardiopulmonary findings. 2010 [employer]- All Rights Reserved Abdomen/Pelvis CT 05/08/17 00:00 IMPRESSION: Interval reduction in previously described dilated loops of small bowel within the right hemiabdomen. No evidence of obstruction or ileus on today's examination. Abdomen X-Ray 05/08/17 07:00 IMPRESSION: PERSISTENT DILATED SMALL BOWEL LOOPS RIGHT UPPER QUADRANT SUSPICIOUS FOR OBSTRUCTION. Assessment & Plan - Diagnosis (1) Partial small bowel obstruction Is this a current diagnosis for this admission?: Yes Plan: versus ileus, resolving. General surgery did not feel that she had a surgical abdomen. Her diet has been advanced but she states that she can only eat a very small amount then develops abdominal bloating and pain and has to wait a while before she eats something else. She has not had any episodes of vomiting. She states she knows that something is wrong. I will try to get in touch with general surgery today so that they can continue to just keep an eye on her. She states she does not want to go home today and that she feels this will get worse and she will just have to come back. (2) Constipation Is this a current diagnosis for this admission?: Yes Plan: Resolved. She was treated by the general surgery service. (3) Hx of hyperlipidemia Is this a current diagnosis for this admission?: Yes Plan: Continue her statin medication. (4) Depression Is this a current diagnosis for this admission?: Yes Plan: Continue Wellbutrin (5) Chronic pain Is this a current diagnosis for this admission?: Yes Plan: She has chronic pain with continuous narcotic use at home. She has a prescription for as needed pain medications but takes it on a regular basis. Her IV Dilaudid was stopped yesterday and she was placed back on hydrocodone as needed. (6) Full code status Is this a current diagnosis for this admission?: Yes - Time Time Spent with patient: 25-34 minutes - Inpatient Certification Medical Necessity: Need Close Monitoring Due to Risk of Patient Decompensation, Other - Inpatient hospitalization remains necessary. We will continue to monitor the patient here in the hospital to make sure that her symptoms do not worsen. I will try to discuss her case with the general surgeon this afternoon.
[2017-05-10] MEDS ORDERED: ONDANSETRON HCL INJ/PF 4 MG/2 ML SDV IV ONE (16:15)
[2017-05-10] MEDS: SIMVASTATIN 40 MG TABLET PO SCH (22:08)
[2017-05-11] MEDS: HYDROCODONE/ACETAMINOPHEN 5-325 MG TABLET PO PRN ×2 (04:24→08:53)
[2017-05-11] MEDS: ONDANSETRON HCL INJ/PF 4 MG/2 ML SDV IV PRN ×2 (04:24→08:56)
[2017-05-11] MEDS: ENOXAPARIN SODIUM INJ 40 MG/0.4 ML DISP.SYRIN SUBCUT SCH (08:52)
[2017-05-11] MEDS: LANSOPRAZOLE 30 MG TAB.RAP.DR PO SCH (08:52)
[2017-05-11] MEDS: BUPROPION HCL 75 MG TABLET PO SCH (08:53)
[2017-05-11] MEDS: FAMOTIDINE 20 MG TABLET PO SCH (08:54)
[2017-05-11] MEDS: ASPIRIN 81 MG TABLET, ENT COATED PO SCH (08:54)
[2017-05-11 11:12] VITALS: BP 129/63
--- NOTE | 2017-05-11 17:05 | PDOC DISCHARGE SUMMARY ---
General - Admit/Disc Date/PCP Admission Date/Primary Care Provider: 05/07/17 09:51 Discharge Date: 05/11/17 - Discharge Diagnosis (1) Chronic nausea Is this a current diagnosis for this admission?: Yes (2) Abdominal pain Is this a current diagnosis for this admission?: Yes (3) Depression Is this a current diagnosis for this admission?: Yes - Additional Information Resuscitation Status: Full Code Discharge Diet: As Tolerated Discharge Activity: Activity As Tolerated Prescriptions: Olanzapine [Zyprexa 2.5 Mg Tablet] 2.5 mg PO QHS #30 tablet Home Medications: Aspirin [Aspirin EC] 81 mg PO DAILY 05/07/17 Bupropion HCl [Bupropion Xl] 150 mg PO DAILY 05/07/17 Eszopiclone [Lunesta] 3 mg PO QHS 05/07/17 Famotidine [Pepcid 20 mg Tablet] 20 mg PO BID 05/07/17 Fluticasone Propionate [Flonase Nasal [place] 50 Mcg/[place] 16 gm] 1 spray NASL Q12HP PRN 05/07/17 Hydrocodone Bit/Acetaminophen [Hydrocodon-Acetaminophen 5-325] 1 tab PO Q12HP PRN 05/07/17 Ibandronate Sodium [Boniva] 150 mg PO .QMONTHLY 05/07/17 Linaclotide [Linzess] 290 mcg PO DAILY 05/07/17 Nitroglycerin [Nitrostat 0.4 mg (1/150 Gr) Tabs 25/Bottle] 1 tab SL Q5MP PRN Ondansetron HCl [Zofran 4 mg Tablet] 4 mg PO Q8HP PRN 05/07/17 Simvastatin [Zocor 80 mg Tablet] 80 mg PO QHS 05/07/17 Olanzapine [Zyprexa 2.5 Mg Tablet] 2.5 mg PO QHS #30 tablet 05/11/17 History of Present Illness History of Present Illness: JAMES HORTON is a 62 year old female with history of intermittent crampy severe abdominal pain along with nausea and occasional emesis as well as chronic constipation. She has had endoscopic workup in the past which according to the patient only demonstrated small colon polyp several months ago. She has been diagnosed with irritable bowel syndrome with constipation. Despite medical therapy she has had continued abdominal symptoms. She was recently admitted for possible partial small bowel obstruction which was managed conservatively and was discharged to home. However she had recurrent symptoms. She took Linzess the day prior to admission and had several liquid bowel movements. She also developed crampy abdominal pain and had emesis. With the recurrence of her symptoms she came back through the emergency room. Patient has had multiple abdominal surgeries including colon resection for what sounds like diverticulitis as well as ventral hernia repair. Hospital Course Hospital Course: Patient overall symptoms wax and wanes. She admitted that she has been having nausea for a while and upon inquiry she is on SSRI which are notorious for causing nausea. We opted to discontinue Trintellix and allowed her to continue bupropion. Patient was placed on Zyprexa which may help with the nausea and increase her appetite. Recommend primary care provider to follow-up in this regard. Patient will follow up with her primary care provider on May 13 and recommend for her to be referred to a senior analyst market intelligence. Since patient had achieved maximum benefit of hospitalization stay prompted to discharge under stable condition Physical Exam Vital Signs: Temp Pulse Resp BP Pulse Ox 97.8 F 59 L 16 129/63 H 97 05/11/17 11:05 05/11/17 11:05 05/11/17 11:05 05/11/17 11:05 05/11/17 11:05 Intake & Output 05/10/17 05/11/17 05/12/17 06:59 06:59 06:59 Intake Total 3672 465 Balance 3672 465 Weight 62.3 kg 62.7 kg General appearance: PRESENT: no acute distress, cooperative, obese Head exam: PRESENT: atraumatic, normocephalic Eye exam: PRESENT: conjunctiva pink, EOMI, PERRLA Ear exam: PRESENT: normal external ear exam, TM's normal bilaterally Mouth exam: PRESENT: moist, neck supple Neck exam: PRESENT: full ROM. ABSENT: JVD, lymphadenopathy, tenderness Respiratory exam: PRESENT: clear to auscultation alice Cardiovascular exam: PRESENT: RRR. ABSENT: diastolic murmur, systolic murmur Vascular exam: PRESENT: normal capillary refill GI/Abdominal exam: PRESENT: normal bowel sounds, soft. ABSENT: tenderness Extremities exam: PRESENT: full ROM. ABSENT: joint swelling, pedal edema Musculoskeletal exam: PRESENT: ambulatory. ABSENT: full ROM Neurological exam: PRESENT: alert, awake, oriented to person, oriented to place , oriented to time, oriented to situation, CN II-XII grossly intact Psychiatric exam: PRESENT: appropriate affect, normal mood Skin exam: PRESENT: intact, normal color Results Laboratory Results: 05/08/17 06:59 05/08/17 06:59 Impressions: Chest X-Ray 05/07/17 02:37 IMPRESSION: No acute cardiopulmonary findings. 2010 [email or web address]- All Rights Reserved Abdomen/Pelvis CT 05/08/17 00:00 IMPRESSION: Interval reduction in previously described dilated loops of small bowel within the right hemiabdomen. No evidence of obstruction or ileus on today's examination. Abdomen X-Ray 05/08/17 07:00 IMPRESSION: PERSISTENT DILATED SMALL BOWEL LOOPS RIGHT UPPER QUADRANT SUSPICIOUS FOR OBSTRUCTION. Plan Discharge Plan: Discharge home Time Spent: Less than 30 Minutes
== END 2017-05-11 12:20 | disposition home or self-care (01) | DRG 392 ==
LOC: ER 02:34 → EH 09:51 → 4S 12:31
PROVIDERS: ADMIT Internal Medicine; ATTEND Internal Medicine
PROC: 0D9670Z Drainage of Stomach with Drainage Device, Via Natural or Artificial Opening (ICD-10-PCS; principal; 2017-05-07)
DX: R11.2 Nausea with vomiting, unspecified (principal); T43.225A Adverse effect of selective serotonin reuptake inhibitors, initial encounter; K58.1 Irritable bowel syndrome with constipation; F32.9 Major depressive disorder, single episode, unspecified; I10 Essential (primary) hypertension; J98.4 Other disorders of lung; K21.9 Gastro-esophageal reflux disease without esophagitis; M19.90 Unspecified osteoarthritis, unspecified site; F43.10 Post-traumatic stress disorder, unspecified; G89.29 Other chronic pain; E78.00 Pure hypercholesterolemia, unspecified; Z91.041 Radiographic dye allergy status; Z90.49 Acquired absence of other specified parts of digestive tract; Z86.73 Personal history of transient ischemic attack (TIA), and cerebral infarction without residual deficits; Z79.82 Long term (current) use of aspirin; Z79.899 Other long term (current) drug therapy; Z90.710 Acquired absence of both cervix and uterus; Z82.3 Family history of stroke; Z80.9 Family history of malignant neoplasm, unspecified; Z82.49 Family history of ischemic heart disease and other diseases of the circulatory system
CPT/HCPCS: 36415; 71045; 74019; 74176; 80048; 80053; 81001; 83690; 85025; 85027; 87493; 93005; 93010; 96361; 96374; 96375; 96376; 99285; J1170; J1650; J2250; J2405; J3490; J7030

== ENCOUNTER 2017-09-11 05:16 | Inpatient (IN) | payer MEDICAID ==
[2017-09-11] MEDS ORDERED: HYDROMORPHONE HCL INJ/PF 2 MG/ML AMPULE IV ONE (05:24)
[2017-09-11] MEDS ORDERED: NORMAL SALINE 1000 ML 1,000 ML IV ONE ×2 (05:24→13:50)
--- NOTE | 2017-09-11 05:29 | ER Document Report ---
Doctor's Note Notes: 09/11/17 05:27 I performed a triage evaluation of the patient. Patient is a 62-year-old female who presents with complaint of abdominal pain. She first started noticing abdominal pain yesterday on 4 PM became much worse on around 2 AM. She did vomit several times and states that the emesis was somewhat brown in color. Last bowel movement was 2 days ago and was liquid and small amount. She has previous history obstruction last obstruction was in April. She says this pain feels similar it is just much more severe this time around. She does have a history of previous ventral hernia repairs with mesh. She denies any blood in her stool. No blood or emesis. She denies any recent fevers or infections. She received Zofran in the ambulance. She complains of a lot of pain in her abdomen and points to her central abdomen. On exam patient's abdomen is soft very tender to palpation. She does have some guarding, but do not appreciate any true peritoneal signs at this time. I do not feel a hernia on my palpation of the abdomen. I have ordered a x-ray of the abdomen as well as blood work including lactic acid. I will give the patient pain medication try to make her more comfortable. Dictation of this chart was performed using voice recognition software; therefore, there may be some unintended grammatical errors.
[2017-09-11 05:38] LABS: ABSOLUTE LYMPHOCYTES (AUTO) 0.9 10^3/uL (0.5-4.7); ABSOLUTE MONOCYTES (AUTO) 0.3 10^3/uL (0.1-1.4); ABSOLUTE NEUT (AUTO) 5.3 10^3/uL (1.7-8.2); BASOPHILS % (AUTO) 0.7 % (0-2); EOSINOPHILS % (AUTO) 0.5 % (0-6); HEMATOCRIT 42.5 % (36.0-47.0); HEMOGLOBIN 14.7 g/dL (12.0-15.5); LYMPHOCYTES % (AUTO) 13.6 % (13-45); MEAN CORPUSCULAR HEMOGLOBIN 30.6 pg (27.0-33.4); MEAN CORPUSCULAR HGB CONC 34.7 g/dL (32.0-36.0); MEAN CORPUSCULAR VOLUME 88 fl (80-97); PLATELET COUNT 251 10^3/uL (150-450); RED BLOOD COUNT 4.83 10^6/uL (3.72-5.28); RED CELL DISTRIBUTION WIDTH 12.9 % (11.5-14.0); SEGMENTED NEUTROPHILS % (AUTO) 81.2 % (42-78); TOTAL CELLS COUNTED % (AUTO) 100 %; WHITE BLOOD COUNT 6.5 10^3/uL (4.0-10.5)
[2017-09-11 05:59] LABS: ALANINE AMINOTRANSFERASE 23 U/L (9-52); ALBUMIN 4.9 g/dL (3.5-5.0); ALKALINE PHOSPHATASE 72 U/L (38-126); ANION GAP 15 (5-19); ASPARTATE AMINO TRANSFERASE 32 U/L (14-36); BILIRUBIN,DIRECT 0.3 mg/dL (0.0-0.4); BILIRUBIN,TOTAL 0.8 mg/dL (0.2-1.3); BLOOD UREA NITROGEN 13 mg/dL (7-20); CALCIUM 10.1 mg/dL (8.4-10.2); CARBON DIOXIDE 24 mmol/L (22-30); CHLORIDE 104 mmol/L (98-107); GLUCOSE 129 mg/dL (75-110); LIPASE 43.9 U/L (23-300); POTASSIUM 4.1 mmol/L (3.6-5.0); SODIUM 142.5 mmol/L (137-145); TOTAL PROTEIN 8.1 g/dL (6.3-8.2)
--- NOTE | 2017-09-11 06:10 | RADIOLOGY REPORT (SQ) ---
EXAM DESCRIPTION: US ABDOMEN ANEURYSM SCREENING CLINICAL HISTORY: 62 years Female, abdominal pain, vomiting COMPARISON: None. NUMBER OF VIEWS/TECHNIQUE: 3 LIMITATIONS: None. FINDINGS: Intestinal gas pattern is within normal limits. No suspicious calcification. Grossly intact skeletal structures. No acute cardiopulmonary findings. Left pelvic suture. Right upper abdominal clips. Mild thoracic dextroconvexity. IMPRESSION: No acute findings.
[2017-09-11] MEDS ORDERED: GLYCERIN (PEDIATRIC) SUPP.RECT PR ONE ×2 (07:02→07:25)
[2017-09-11] MEDS ORDERED: ONDANSETRON HCL INJ/PF 4 MG/2 ML SDV IV ONE (07:02)
[2017-09-11] MEDS ORDERED: ONDANSETRON 4 MG TAB.RAPDIS PO ONE (07:04)
--- NOTE | 2017-09-11 07:21 | ER Document Report ---
ED General - General Chief Complaint: Abdominal Pain Stated Complaint: ABDOMINAL PAIN Time Seen by Provider: 09/11/17 05:23 TRAVEL OUTSIDE OF THE [place] IN LAST 30 DAYS: No - HPI Patient complains to provider of: Abdominal pain Notes: Patient coming in for abdominal pain was seen by the night doctor who wrote the following note. "I performed a triage evaluation of the patient. Patient is a 62-year-old female who presents with complaint of abdominal pain. She first started noticing abdominal pain yesterday on 4 PM became much worse on around 2 AM. She did vomit several times and states that the emesis was somewhat brown in color. Last bowel movement was 2 days ago and was liquid and small amount. She has previous history obstruction last obstruction was in April. She says this pain feels similar it is just much more severe this time around. She does have a history of previous ventral hernia repairs with mesh. She denies any blood in her stool. No blood or emesis. She denies any recent fevers or infections. She received Zofran in the ambulance. She complains of a lot of pain in her abdomen and points to her central abdomen. " Patient is able to confirm all this information. Upon my evaluation patient sitting comfortably still points to the center epigastric region of her abdomen as far as the area of pain. Patient states she is not passing any gas since she has been here in the ER. Patient denies any abdominal trauma. Patient denies any fevers chills. No recent antibiotics. - Related Data Allergies/Adverse Reactions: IVP dye Allergy (Intermediate, Uncoded 04/28/17 16:10) rash Past Medical History - Social History Smoking Status: Unknown if Ever Smoked Family History: CAD, CVA, Malignancy Patient has suicidal ideation: No Patient has homicidal ideation: No - Past Medical History Cardiac Medical History: Reports: Hx Hypercholesterolemia, Hx Hypertension Pulmonary Medical History: Reports: Hx Pneumonia - left lung scarring Denies: Hx Asthma, Hx Bronchitis, Hx COPD, Hx Respiratory Failure, Hx Sleep Apnea, Hx Tuberculosis Neurological Medical History: Reports: Hx Cerebrovascular Accident - Patient reports "mini stroke" Endocrine Medical History: Denies: Hx Diabetes Mellitus Type 1, Hx Diabetes Mellitus Type 2 Renal/ Medical History: Denies: Hx End Stage Renal Disease, Hx Kidney Stones, Hx Ovarian Cysts, Hx Peritoneal Dialysis Malignancy Medical History: Denies: Hx Breast Cancer, Hx Cervical Cancer, Hx Leukemia, Hx Lung Cancer, Hx Ovarian Cancer GI Medical History: Reports: Hx Gastroesophageal Reflux Disease, Hx Ulcer. Denies: Hx Crohn's Disease, Hx Hiatal Hernia, Hx Irritable Bowel, Hx Liver Failure, Hx Pancreatitis Musculoskeltal Medical History: Reports Hx Arthritis, Denies Hx Fibromyalgia, Denies Hx Multiple Sclerosis, Denies Hx Muscular Dystrophy Psychiatric Medical History: Reports: Hx Depression, Hx Post Traumatic Stress Disorder Denies: Hx Bipolar Disorder, Hx Dementia, Hx Schizophrenia Traumatic Medical History: Reports: Hx Fractures - left wrist Infectious Medical History: Denies: Hx HIV Past Surgical History: Reports: Hx Adenoidectomy, Hx Appendectomy, Hx Hysterectomy, Hx Orthopedic Surgery - carpal tunnel, Other - Sigmoid colectomy, rectopexy Dr. Fowler 2013; abdominal wall hernia surg. Denies: Hx Bowel Surgery, Hx Section, Hx Cholecystectomy, Hx Colostomy, Hx Coronary Artery Bypass Graft, Hx Gastric Bypass Surgery, Hx Herniorrhaphy, Hx Mastectomy , Hx Pacemaker, Hx Tonsillectomy, Hx Tubal Ligation - Immunizations Hx Diphtheria, Pertussis, Tetanus Vaccination: Yes Review of Systems - Review of Systems Constitutional: No symptoms reported EENT: No symptoms reported Cardiovascular: No symptoms reported Respiratory: No symptoms reported Gastrointestinal: Abdominal pain Genitourinary: No symptoms reported Female Genitourinary: No symptoms reported Musculoskeletal: No symptoms reported Skin: No symptoms reported Hematologic/Lymphatic: No symptoms reported Neurological/Psychological: No symptoms reported -: Yes All other systems reviewed and negative Physical Exam - Vital signs Vitals: Resp BP Pulse Ox 8 L 147/80 H 98 09/11/17 07:30 09/11/17 07:30 09/11/17 07:30 Interpretation: Normal - General General appearance: Appears well, Alert - HEENT Head: Normocephalic, Atraumatic Eyes: Normal Pupils: PERRL - Respiratory Respiratory status: No respiratory distress Chest status: Nontender Breath sounds: Normal Chest palpation: Normal - Cardiovascular Rhythm: Regular Heart sounds: Normal auscultation Murmur: No - Abdominal Inspection: Normal Distension: No distension Bowel sounds: Hypoactive Tenderness: Tender - Diffusely tender to palpation Organomegaly: No organomegaly - Rectal Notes: No signs of impaction on rectal exam light brown stool in the rectum - Back Back: Normal, Nontender - Extremities General upper extremity: Normal inspection, Nontender, Normal color, Normal ROM , Normal temperature General lower extremity: Normal inspection, Nontender, Normal color, Normal ROM , Normal temperature, Normal weight bearing. No: Sam's sign - Neurological Neuro grossly intact: Yes Cognition: Normal Orientation: AAOx4 [place] Coma Scale Eye Opening: Spontaneous [place] Coma Scale Verbal: Oriented [place]am[place] Coma Scale Motor: Obeys Commands Familia Coma Scale Total: 15 Speech: Normal Motor strength normal: LUE, RUE, LLE, RLE Sensory: Normal - Psychological Associated symptoms: Normal affect, Normal mood - Skin Skin Temperature: Warm Skin Moisture: Dry Skin Color: Normal Course - Re-evaluation Re-evalutation: 09/11/17 07:20 Patient laboratory studies an acute abdominal series reviewed by myself do not see any signs of free air or obstruction does show to looks to be significant constipation. The reviewed patient's previous CAT scans signs of partial small bowel obstruction dilated loops of bowel. Do believe patient symptoms more likely due to her chronic opiate use. Patient denies being on any kind of a bowel prep. I am concerned that the patient does have hypoactive bowel sounds and for the tenderness of her abdomen. Patient drink oral contrast performed CT scan to rule out underlying obstruction also will encourage patient to have a bowel movement. 09/11/17 14:[address] scan that showed again partial small bowel obstruction with adhesions in the lower abdomen and stool throughout the colon and small intestine. Patient continues to feel nauseous unable to have a bowel movement here patient's Patient case was discussed with surgery on-call because a recent history of more likely related the patient - Vital Signs Vital signs: Temp Pulse Resp BP Pulse Ox 98.6 F 13 132/70 H 95 09/11/17 12:15 09/11/17 13:00 09/11/17 13:00 09/11/17 13:00 - Laboratory Result Diagrams: 09/11/17 05:26 09/11/17 05:26 Laboratory results interpreted by me: 09/11/17 09/11/17 09/11/17 05:26 05:26 07:30 Seg Neutrophils % 81.2 H Glucose 129 H Urine Protein 30 H Urine Ketones 20 H Urine Urobilinogen 2.0 H Discharge - Discharge Clinical Impression: Partial small bowel obstruction Constipation Qualifiers: Constipation type: other constipation type Qualified Code(s): K59.09 - Other constipation Condition: Good Disposition: ADMITTED OBSERVATION Admitting Provider: Surgicalist Rebekah Hutson Unit Admitted: Surgical Floor
[2017-09-11 07:40] LABS: APPEARANCE,URINE SLIGHTLY-CLOUDY; BILIRUBIN,URINE NEGATIVE (NEGATIVE); COLOR,URINE YELLOW; GLUCOSE, URINE NEGATIVE (NEGATIVE); KETONES,URINE 20 mg/dL (NEGATIVE); LEUKOCYTE ESTERASE,URINE NEGATIVE (NEGATIVE); NITRITE,URINE NEGATIVE (NEGATIVE); PROTEIN,URINE 30 mg/dL (NEGATIVE); URINE SPECIFIC GRAVITY 1.018
[2017-09-11] MEDS ORDERED: PROMETHAZINE HCL INJ 25 MG/1 ML VIAL IM ONE (07:52)
[2017-09-11] MEDS ORDERED: FAMOTIDINE INJ/PF 20 MG/2 ML SDV IV ONE (09:30)
[2017-09-11] MEDS ORDERED: DIPHENHYDRAMINE HCL 50 MG/ML VIAL IV ONE (09:30)
[2017-09-11] MEDS ORDERED: METHYLPREDNISOLONE INJ 125 MG/2 ML SDV IV ONE (09:30)
--- NOTE | 2017-09-11 10:44 | RADIOLOGY REPORT (SQ) ---
EXAM DESCRIPTION: CT ABD/PELVIS WITH IV ORAL COMPLETED DATE/TIME: 09/11/2017 10:06 am REASON FOR STUDY: eval abd pain hx of sbo . Diffuse abdominal pain. COMPARISON: 05/08/2017. TECHNIQUE: CT scan of the abdomen and pelvis performed using helical scanning technique with dynamic intravenous contrast injection. Oral contrast given. . Images reviewed with lung, soft tissue, and bone windows. Reconstructed coronal and sagittal MPR images reviewed. Delayed images for evaluation of the urinary system also acquired. All images stored on PACS. All CT scanners at this facility use dose modulation, iterative reconstruction, and/or weight based d osing when appropriate to reduce radiation dose to as low as reasonably achievable (ALARA). [facility]: Dose Right [facility]: CareDose [facility]: Dose Right [facility]: Teradose 4D [facility]: Gracious Eloise CONTRAST TYPE AND DOSE: contrast/concentration: Isovue 370.00 mg/ml; Total Contrast Delivered: 62.0 ml; Total Saline Delivered: 65.0 ml RENAL FUNCTION: Creatinine: 0.6. Patient received premedication with steroids due to contrast aller gy. RADIATION DOSE: CT Rad equipment meets quality standard of care and radiation dose reduction techniq ues were employed. CTDIvol: 7.6 - 10.6 mGy. DLP: 899 mGy-cm.. LIMITATIONS: None. FINDINGS: LOWER CHEST: No abnormality. LIVER: No abnormality. SPLEEN: No abnormality. Accessory splenic tissue. PANCREAS: No abnormality. GALLBLADDER: Status post cholecystectomy. Postcholecystectomy prominence of intrahepatic and extrahe patic biliary ducts. ADRENAL GLANDS: No abnormality. RIGHT KIDNEY AND URETER: No abnormality. Incomplete rotation of right kidney. LEFT KIDNEY AND URETER: Round hypodensity posterior cortex of lower pole left kidney. The possibilit y of a cortical cyst cannot be excluded. It is too small to accurately characterize. AORTA AND VESSELS: Atherosclerotic change of the abdominal aorta. Renal arteries, SMA, celiac withou t stenosis. RETROPERITONEUM: No retroperitoneal adenopathy, hemorrhage or masses. BOWEL AND PERITONEAL CAVITY: Surgical clips surrounding rectosigmoid colon from partial resection. D ecompressed left colon. Moderate amount of fecal material within the right and transverse colon. Th ere are dilated loops of small bowel noted in the right mid abdomen with fecalization of loops of sma ll bowel in the right lower abdomen . These findings are compatible with partial small bowel obstruc tion. Transition from dilated small bowel loops to nondilated small bowel loops noted in right lower quadrant. Angulated loops of bowel noted suggesting possibility of adhesions. (Image number [id number] series 5 delayed axial scans. APPENDIX: Not visualized. Uterus: Absent. Urinary bladder: No abnormality. No mass. No free fluid. Normal bladder. ABDOMINAL WALL: Postsurgical changes of lower abdominal wall. BONES: No significant or acute findings. There is a fluid collection noted anterior to the femoral vessels on the left. A hematoma could not be excluded IMPRESSION: 1. Findings compatible with partial small bowel obstruction right hemipelvis. Small am ount of free fluid within pelvis. 2. Additional findings as above. TECHNICAL DOCUMENTATION: JOB ID: [id number] SC-[id number] Quality ID # [id number]: Final reports with documentation of one or more dose reduction techniques (e.g., Au tomated exposure control, adjustment of the mA and/or kV according to patient size, use of iterative reconstruction technique) 2010 [employer]- All Rights Reserved Reading location - IP/workstation name: [email or web address]
[2017-09-11] MEDS ORDERED: LIDOCAINE 2% URO-JET 5 ML KIT MM ONE (11:22)
[2017-09-11] MEDS ORDERED: LIDOCAINE 1% INJ-PF (10 MG/ML) 30 ML SDV NEB ONE (14:32)
[2017-09-11] MEDS ORDERED: DEXTROSE 40% GEL 15 GM TUBE PO PRN ×2 (14:51)
[2017-09-11] MEDS ORDERED: ONDANSETRON HCL INJ/PF 4 MG/2 ML SDV IV PRN (14:51)
[2017-09-11] MEDS ORDERED: GLUCAGON,HUMAN RECOMB 1 MG INJ SUBCUT PRN (14:51)
[2017-09-11] MEDS ORDERED: DEXTROSE 50%-WATER 25 GM/50 ML DISP.SYRIN IV PRN ×2 (14:51)
--- NOTE | 2017-09-11 14:51 | PDOC H&P ---
History of Present Illness Admission Date/PCP: 09/11/17 13:59 TAMRA MASON MD Patient complains of: abdominal pains with N&V History of Present Illness: CARMEN HORTON is a 62 year old female with history of umbilical hernia repair with mesh in 2016,previous SBO which spontaneously resolved after about 3 days in 05/06, on pain mx for chronic back pains due to arthritis, c/o abdominal pains with N&V about 4 pm yesterday. She went to ED and noted to have partial SBO likely due to adhesions. Past Medical History Cardiac Medical History: Reports: Hyperlipidema, Hypertension Pulmonary Medical History: Reports: Pneumonia - left lung scarring Denies: Asthma, Bronchitis, Chronic Obstructive Pulmonary Disease (COPD), Respiratory Failure, Sleep Apnea, Tuberculosis Endocrine Medical History: Denies: Diabetes Mellitus Type 1, Diabetes Mellitus Type 2 Renal/ Medical History: Denies: End Stage Renal Disease Malignancy Medical History: Denies: Breast Cancer, Cervical Cancer, Leukemia, Lung Cancer, Ovarian Cancer GI Medical History: Reports: Gastroesophageal Reflux Disease Denies: Crohn's Disease, Hiatal Hernia Musculoskeltal Medical History: Reports: Arthritis Denies: Fibromyalgia Psychiatric Medical History: Reports: Depression, Post Traumatic Stress Disorder Denies: Bipolar Disorder, Dementia Hematology: Denies: Anemia, Hemophilia, Sickle Cell Disease Infectious Medical History: Denies: HIV Past Surgical History Past Surgical History: Reports: Adenoidectomy, Appendectomy, Hysterectomy, Orthopedic Surgery - carpal tunnel, Other - Sigmoid colectomy, rectopexy Dr. Fowler 2013; abdominal wall hernia surg Denies: Amputation, Section, Cholecystectomy, Colostomy, Coronary Artery Bypass Graft, Gastric Bypass Surgery, Herniorrhaphy, Mastectomy, Pacemaker, Tonsillectomy, Tubal Ligation Social History Smoking Status: Unknown if Ever Smoked Frequency of Alcohol Use: None Hx Recreational Drug Use: No Drugs: None Hx Prescription Drug Abuse: No Family History Family History: CAD, CVA, Malignancy Parental Family History Reviewed: Yes Children Family History Reviewed: No Sibling(s) Family History Reviewed.: No Medication/Allergy Home Medications: Aspirin [Aspirin EC] 81 mg PO DAILY 09/11/17 Cholecalciferol (Vitamin D3) [Vitamin D3 2000 unit Tablet] 2,000 unit PO DAILY 09/11/17 Eszopiclone [Lunesta] 3 mg PO QHS 09/11/17 Famotidine [Pepcid] 20 mg PO BID 09/11/17 Fluticasone Propionate [Flonase Nasal [place] 50 Mcg/[place] 16 gm] 1 spray NASL DAILYP PRN 09/11/17 Hydrocodone/Acetaminophen [Hydrocodon-Acetaminophen 5-325] 1 each PO BIDP PRN L.acidoph,Paracasei, B.lactis [Probiotic] 1 each PO DAILY 09/11/17 Linaclotide [Linzess] 72 mcg PO QAM 09/11/17 Meclizine HCl [Antivert 12.5 mg Tablet] 12.5 mg PO BIDP PRN 09/11/17 Nitroglycerin [Nitrostat 0.4 mg (1/150 Gr) Tabs 25/Bottle] 1 tab SL Q5MP PRN Simvastatin [Zocor 80 mg Tablet] 80 mg PO QHS 09/11/17 Vortioxetine Hydrobromide [Brintellix] 15 mg PO DAILY 09/11/17 Allergies/Adverse Reactions: IVP dye Allergy (Intermediate, Uncoded 04/28/17 16:10) rash Review of Systems Constitutional: PRESENT: other - denies fever/chills Eyes: PRESENT: other - no visual/hearing changes Cardiovascular: PRESENT: other - no chest pains/cough Gastrointestinal: PRESENT: abdominal pain, nausea, vomiting Genitourinary: PRESENT: other - no dysuria Neurological: PRESENT: other - no seizures Psychiatric: PRESENT: depression Physical Exam Vital Signs: Temp Pulse Resp BP Pulse Ox 98.6 F 13 132/70 H 95 09/11/17 12:15 09/11/17 13:00 09/11/17 13:00 09/11/17 13:00 General appearance: PRESENT: mild distress Head exam: PRESENT: atraumatic Eye exam: PRESENT: conjunctiva pink Mouth exam: PRESENT: dry mucosa Respiratory exam: PRESENT: clear to auscultation alice Cardiovascular exam: PRESENT: RRR Pulses: PRESENT: normal radial pulses Vascular exam: PRESENT: normal capillary refill GI/Abdominal exam: PRESENT: soft, tenderness - diffuse primarily at pelvic area Rectal exam: PRESENT: deferred Extremities exam: PRESENT: full ROM Musculoskeletal exam: PRESENT: ambulatory Neurological exam: PRESENT: alert, oriented to person, oriented to place, oriented to time, oriented to situation Psychiatric exam: PRESENT: appropriate affect Skin exam: PRESENT: normal color, warm Results Impressions: Abdomen/Pelvis CT 09/11/17 00:00 IMPRESSION: 1. Findings compatible with partial small bowel obstruction right hemipelvis. Small amount of free fluid within pelvis. 2. Additional findings as above. Acute Abdomen Series 09/11/17 05:23 IMPRESSION: No acute findings. Assessment & Plan - Diagnosis (1) Constipation Qualifiers: Constipation type: other constipation type Qualified Code(s): K59.09 - Other constipation Is this a current diagnosis for this admission?: Yes (2) Partial small bowel obstruction Is this a current diagnosis for this admission?: Yes (3) Anxiety disorder Is this a current diagnosis for this admission?: Yes (4) Chronic nausea Is this a current diagnosis for this admission?: Yes (5) Chronic pain Is this a current diagnosis for this admission?: Yes (6) Depression Is this a current diagnosis for this admission?: Yes (7) Full code status Is this a current diagnosis for this admission?: Yes - Time Time Spent: 30 to 50 Minutes - Inpatient Certification Medical Necessity: Significant Comorbidiites Make Outpatient Treatment Too Risky , Need For IV Fluids, Need for Pain Control, Need for Surgery, Risk of Complication if Not Cared For in Hospital - Plan Summary Plan Summary: Keep NPO NGT to LIS Hydrate PRN for pain Follow up abdominal xray in am Monitor CBC and lytes
[2017-09-11] MEDS ORDERED: MIDAZOLAM 2 MG/2 ML INJ IV ONE (15:12)
[2017-09-11] MEDS: PROMETHAZINE HCL INJ 25 MG/1 ML VIAL IV PRN (17:05)
[2017-09-11] MEDS: DEXTROSE 5%-LACTATED RINGERS 1,000 ML IV PRN (17:05)
--- NOTE | 2017-09-11 17:30 | RADIOLOGY REPORT (SQ) ---
EXAM DESCRIPTION: KUB/ABDOMEN (SINGLE VIEW) COMPLETED DATE/TIME: 09/11/2017 5:14 pm REASON FOR STUDY: post NG tube COMPARISON: None. NUMBER OF VIEWS: One view. TECHNIQUE: Supine radiographic image of the abdomen acquired. LIMITATIONS: None. FINDINGS: BOWEL GAS PATTERN: There is evidence of scattered gas and fecal material within the colon. Mild dilatation of small bowel. Residual contrast within stomach. No pneumoperitoneum. CALCIFICATIONS: No suspicious calcifications. SOFT TISSUES: No gross mass or suggestion of organomegaly. HARDWARE: Surgical clip right upper quadrant. . BONES: Lumbar spondylosis. Dorsal spondylosis. OTHER: NG tube overlying left upper quadrant most likely within stomach. IMPRESSION: NG tube overlying stomach. TECHNICAL DOCUMENTATION: JOB ID: [id number] SC-[id number] 2010 [employer]- All Rights Reserved Reading location - IP/workstation name: [email or web address]
[2017-09-11] MEDS: MORPHINE SULFATE 10 MG/ML INJ IV PRN (20:53)
[2017-09-11] MEDS: FAMOTIDINE INJ/PF 20 MG/2 ML SDV IV SCH (21:01)
[2017-09-12] MEDS: PROMETHAZINE HCL INJ 25 MG/1 ML VIAL IV PRN ×2 (00:52→09:20)
[2017-09-12] MEDS: MORPHINE SULFATE 10 MG/ML INJ IV PRN ×3 (00:53→18:47)
[2017-09-12] MEDS: DEXTROSE 5%-LACTATED RINGERS 1,000 ML IV PRN ×3 (01:46→18:49)
[2017-09-12 08:27] LABS: ABSOLUTE LYMPHOCYTES (AUTO) 0.8 10^3/uL (0.5-4.7); ABSOLUTE MONOCYTES (AUTO) 0.8 10^3/uL (0.1-1.4); ABSOLUTE NEUT (AUTO) 9.5 10^3/uL (1.7-8.2); BASOPHILS % (AUTO) 0.2 % (0-2); EOSINOPHILS % (AUTO) 0.3 % (0-6); HEMATOCRIT 37.5 % (36.0-47.0); HEMOGLOBIN 12.9 g/dL (12.0-15.5); LYMPHOCYTES % (AUTO) 7.3 % (13-45); MEAN CORPUSCULAR HEMOGLOBIN 30.7 pg (27.0-33.4); MEAN CORPUSCULAR HGB CONC 34.4 g/dL (32.0-36.0); MEAN CORPUSCULAR VOLUME 89 fl (80-97); MONOCYTES % (AUTO) 7.4 % (3-13); PLATELET COUNT 218 10^3/uL (150-450); RED BLOOD COUNT 4.21 10^6/uL (3.72-5.28); RED CELL DISTRIBUTION WIDTH 13.1 % (11.5-14.0); SEGMENTED NEUTROPHILS % (AUTO) 84.8 % (42-78); TOTAL CELLS COUNTED % (AUTO) 100 %; WHITE BLOOD COUNT 11.2 10^3/uL (4.0-10.5)
[2017-09-12 08:45] LABS: ANION GAP 10 (5-19); BLOOD UREA NITROGEN 14 mg/dL (7-20); CALCIUM 9.1 mg/dL (8.4-10.2); CARBON DIOXIDE 27 mmol/L (22-30); CHLORIDE 107 mmol/L (98-107); GLUCOSE 152 mg/dL (75-110); LIPASE 32.1 U/L (23-300); POTASSIUM 3.8 mmol/L (3.6-5.0)
[2017-09-12 08:59] LABS: FREE T3 2.95 pg/mL (2.77-5.27); FREE T4 (FREE THYROXINE) 1.06 ng/dL (0.78-2.19)
--- NOTE | 2017-09-12 09:07 | RADIOLOGY REPORT (SQ) ---
EXAM DESCRIPTION: ACUTE ABDOMEN SERIES COMPLETED DATE/TIME: 09/12/2017 8:42 am REASON FOR STUDY: ff up of SBO COMPARISON: 09/11/2017 NUMBER OF VIEWS: Three views. TECHNIQUE: Frontal chest, supine abdomen and upright/decubitus abdomen radiographic images acquired. LIMITATIONS: None. FINDINGS: CHEST: Lungs clear of infiltrates. FREE AIR: None. No abnormal gas collections. BOWEL GAS PATTERN: There is oral contrast in the distal small bowel and ascending colon. Gas fluid l evels within mildly dilated loops of small bowel in the left lower quadrant. CALCIFICATIONS: No suspicious calcifications. HARDWARE: Clips right upper quadrant. SOFT TISSUES: No gross mass or suggestion of organomegaly. BONES: No acute fracture. No worrisome bone lesions. OTHER: Nasogastric tube in the stomach. IMPRESSION: Ileus or partial small bowel obstruction. Good position of nasogastric tube. TECHNICAL DOCUMENTATION: JOB ID: [id number] [employer]- All Rights Reserved Reading location - IP/workstation name: [email or web address]
[2017-09-12 09:13] LABS: THYROID STIMULATING HORMONE 1.79 uIU/mL (0.47-4.68)
[2017-09-12] MEDS: FAMOTIDINE INJ/PF 20 MG/2 ML SDV IV SCH ×2 (09:16→22:24)
--- NOTE | 2017-09-12 14:14 | PDOC PROGRESS REPORT ---
Subjective Progress Note for:: 09/12/17 Subjective:: Still c/o andre umbilical pains. NGT in place Denies flatus Reason For Visit: PARTIAL SMALL BOWEL OBSTRUCTION,CHRONIC NARCOTIC Physical Exam Vital Signs: Temp Pulse Resp BP Pulse Ox 98.4 F 68 17 122/71 99 09/12/17 10:51 09/12/17 10:51 09/12/17 10:51 09/12/17 10:51 09/12/17 10:51 Intake & Output 09/11/17 09/12/17 09/13/17 06:59 06:59 06:59 Intake Total 1735 Output Total 500 Balance 1235 Weight 60.3 kg Exam: Abdomen remains distended with andre-umbilical tenderness NGT about 500 ccs ABD XRAY showed partial SBO Results Laboratory Results: 09/12/17 07:33 09/12/17 07:33 09/12/17 09/12/17 09/12/17 07:33 07:33 07:33 WBC 11.2 H RBC 4.21 Hgb 12.9 Hct 37.5 MCV 89 MCH 30.7 MCHC 34.4 RDW 13.1 Plt Count 218 Seg Neutrophils % 84.8 H Lymphocytes % 7.3 L Monocytes % 7.4 Eosinophils % 0.3 Basophils % 0.2 Absolute Neutrophils 9.5 H Absolute Lymphocytes 0.8 Absolute Monocytes 0.8 Absolute Eosinophils 0.0 Absolute Basophils 0.0 Sodium 144.0 Potassium 3.8 Chloride 107 Carbon Dioxide 27 Anion Gap 10 BUN 14 Creatinine 0.57 Est GFR ( Amer) > 60 Est GFR (Non-Af Amer) > 60 Glucose 152 H Calcium 9.1 Lipase 32.1 TSH 1.79 Free T4 1.06 Free T3 pg/mL 2.95 Impressions: Abdomen/Pelvis CT 09/11/17 00:00 IMPRESSION: 1. Findings compatible with partial small bowel obstruction right hemipelvis. Small amount of free fluid within pelvis. 2. Additional findings as above. KUB X-Ray 09/11/17 00:00 IMPRESSION: NG tube overlying stomach. Acute Abdomen Series 09/12/17 07:00 IMPRESSION: Ileus or partial small bowel obstruction. Good position of nasogastric tube. Assessment & Plan - Diagnosis (1) Constipation Qualifiers: Constipation type: other constipation type Qualified Code(s): K59.09 - Other constipation Is this a current diagnosis for this admission?: Yes (2) Partial small bowel obstruction Is this a current diagnosis for this admission?: Yes (3) Anxiety disorder Is this a current diagnosis for this admission?: Yes (4) Chronic nausea Is this a current diagnosis for this admission?: Yes (5) Chronic pain Is this a current diagnosis for this admission?: Yes (6) Depression Is this a current diagnosis for this admission?: Yes (7) Full code status Is this a current diagnosis for this admission?: Yes - Time Time Spent with patient: 15-24 minutes - Plan Summary Plan Summary: SBFT to check for site of SBO and possibly help clear obstruction. She has chronic constipation likely due to opiate meds for chronic pains and being followed at [facility],likely contributing to partial obstruction/ileus.
[2017-09-12] MEDS ORDERED: DIPHENHYDRAMINE HCL 50 MG/ML VIAL ONE (15:47)
[2017-09-12] MEDS ORDERED: DIPHENHYDRAMINE HCL 50 MG/ML VIAL IV ONE (16:15)
--- NOTE | 2017-09-12 17:09 | RADIOLOGY REPORT (SQ) ---
EXAM DESCRIPTION: SMALL BOWEL SERIES COMPLETED DATE/TIME: 09/12/2017 4:52 pm REASON FOR STUDY: to check for area of stenosis COMPARISON: Abdominal CT with contrast 09/11/2017. FLUOROSCOPY TIME: 1 minutes 32 seconds 10 images saved to PACS. LIMITATIONS: None. PROCEDURE: Initial laundry helper image of abdomen acquired, followed by administration of oral contrast. Se rial radiographic images acquired. Fluoroscopic images recorded of the terminal ileum and other cali cated areas. All images stored on PACS. FINDINGS: TIP FINISHER KUB: Dilated distal small bowel loops. No abnormal calcifications. Soft tissue christa yehuda normal. STOMACH: NG-tube is in the stomach. DUODENUM: Normal mucosal pattern with adequate distention. No displacement or obstruction. JEJUNUM: Normal mucosal pattern. No dilatation, segmentation, strictures or masses. ILEUM: Possible mild distention. No segmentation, strictures or masses. TERMINAL ILEUM AND ILEO-CECAL VALVE: No clear transition zone without "cobble-stoning" or stricture. Normal compression. PROXIMAL COLON: Incompletely imaged. No abnormality. OTHER: Surgical clips right upper quadrant. IMPRESSION: Possible mild distention distal small bowel loops. No focal transition zone visualized. COMMENT: Quality ID [id number]: Final reports for procedures using fluoroscopy that document radiation exp osure indices, or exposure time and number of fluorographic images (if radiation exposure indices are not available) TECHNICAL DOCUMENTATION: JOB ID: [id number] [employer]- All Rights Reserved Reading location - IP/workstation name: [email or web address]
[2017-09-13] MEDS: FAMOTIDINE INJ/PF 20 MG/2 ML SDV IV SCH (10:02)
--- NOTE | 2017-09-13 10:21 | PDOC PROGRESS REPORT ---
Subjective Progress Note for:: 09/13/17 Subjective:: Complaining she does not feel good; had several bowel movements yesterday. Did not have breakfast this morning; IV now removed Reason For Visit: PARTIAL SMALL BOWEL OBSTRUCTION,CHRONIC NARCOTIC Physical Exam Vital Signs: Temp Pulse Resp BP Pulse Ox 98.1 F 63 17 121/57 L 99 09/13/17 07:12 09/13/17 07:12 09/13/17 07:12 09/13/17 07:12 09/13/17 07:12 Intake & Output 09/12/17 09/13/17 09/14/17 06:59 06:59 06:59 Intake Total 1735 77 Output Total 500 626 Balance 1235 -549 Weight 60.3 kg 60.3 kg General appearance: PRESENT: mild distress GI/Abdominal exam: PRESENT: other - Abdomen scaphoid; no peritoneal signs no rigidity. Mild tenderness Results Laboratory Results: 09/12/17 07:33 09/12/17 07:33 Impressions: Abdomen/Pelvis CT 09/11/17 00:00 IMPRESSION: 1. Findings compatible with partial small bowel obstruction right hemipelvis. Small amount of free fluid within pelvis. 2. Additional findings as above. KUB X-Ray 09/11/17 00:00 IMPRESSION: NG tube overlying stomach. Small Bowel X-Ray 09/12/17 00:00 IMPRESSION: Possible mild distention distal small bowel loops. No focal transition zone visualized. Acute Abdomen Series 09/12/17 07:00 IMPRESSION: Ileus or partial small bowel obstruction. Good position of nasogastric tube. Assessment & Plan - Diagnosis (1) Partial small bowel obstruction Is this a current diagnosis for this admission?: Yes Plan: Presumably improved; patient not quite ready for food this morning. Recommendations: 1. We will encourage p.o. intake, and hopefully anticipate discharge home later today.
[2017-09-13 14:07] VITALS: BP 133/71
--- NOTE | 2017-09-17 08:59 | DISCHARGE SUMMARY E ---
Discharge Summary NAME: CARMEN HORTON : 1955 AGE: 62Y ADMITTED: 09/11/2017 DISCHARGED: 09/13/2017 FINAL DIAGNOSIS: Partial small bowel obstruction, recurrent, resolved. REASON FOR ADMISSION: Small bowel obstruction, partial. SUMMARY OF HOSPITALIZATION: The patient is a 62-year-old white female admitted to the Surgical Service for abdominal pain, nausea, vomiting, and food intolerance. She was worked up CT scan of the abdomen and pelvis which had findings consistent with partial small bowel obstruction. She was admitted to the service, kept down IV fluids n.p.o. She had a small bowel series which showed some distention of the small bowel loops, but no focal transition with evidence of contrast in the colon although incomplete. She was felt not to have a complete bowel obstruction. Gradually she was started on a diet which was advanced and tolerated well. By the third hospital day, she was felt to have received maximal benefit from hospitalization and was discharged home. DISPOSITION: The patient will be discharged home in the care of her family. Followup with the Surgical Clinic on an as needed basis. DICTATING PHYSICIAN: PIERRE CADET M.D. [id number] PHY#: [id number] ID: [id number] JOB#: [id number] ACCT: [id number] cc:PIERRE CADET M.D. [facility],
== END 2017-09-13 16:00 | disposition home or self-care (01) | DRG 390 ==
LOC: ER 05:16 → EH 13:59 → OBSVTOIN 14:51 → 5 18:25
PROVIDERS: ATTEND Surgery
PROC: 0D9670Z Drainage of Stomach with Drainage Device, Via Natural or Artificial Opening (ICD-10-PCS; principal; 2017-09-11)
DX: K56.51 Intestinal adhesions [bands], with partial obstruction (principal); E78.5 Hyperlipidemia, unspecified; I10 Essential (primary) hypertension; M19.90 Unspecified osteoarthritis, unspecified site; F32.9 Major depressive disorder, single episode, unspecified; F43.10 Post-traumatic stress disorder, unspecified; F41.9 Anxiety disorder, unspecified; G89.29 Other chronic pain; E78.00 Pure hypercholesterolemia, unspecified; Z86.73 Personal history of transient ischemic attack (TIA), and cerebral infarction without residual deficits; K21.9 Gastro-esophageal reflux disease without esophagitis; Z79.891 Long term (current) use of opiate analgesic; M54.9 Dorsalgia, unspecified; M46.90 Unspecified inflammatory spondylopathy, site unspecified; Z90.49 Acquired absence of other specified parts of digestive tract; Z90.710 Acquired absence of both cervix and uterus; Z82.49 Family history of ischemic heart disease and other diseases of the circulatory system; Z82.3 Family history of stroke; Z80.9 Family history of malignant neoplasm, unspecified; Z91.041 Radiographic dye allergy status
CPT/HCPCS: 36415; 74018; 74022; 74177; 74250; 80048; 80053; 81001; 83605; 83690; 84439; 84443; 84481; 85025; 96361; 96374; 99285; J1170; J1200; J2250; J2270; J2550; J2930; J3490; J7030; S0028; S0119

== ENCOUNTER 2017-10-31 01:12 | Inpatient (IN) | payer MEDICAID ==
[2017-10-31] MEDS ORDERED: MORPHINE SULFATE 10 MG/ML INJ IV ONE ×3 (02:18→06:06)
[2017-10-31] MEDS ORDERED: ONDANSETRON 4 MG TAB.RAPDIS PO ONE ×2 (02:18→10:00)
[2017-10-31 02:27] LABS: APPEARANCE,URINE CLEAR; BILIRUBIN,URINE NEGATIVE (NEGATIVE); COLOR,URINE YELLOW; GLUCOSE, URINE NEGATIVE (NEGATIVE); KETONES,URINE NEGATIVE (NEGATIVE); LEUKOCYTE ESTERASE,URINE TRACE (NEGATIVE); NITRITE,URINE NEGATIVE (NEGATIVE); PROTEIN,URINE NEGATIVE (NEGATIVE); URINE SPECIFIC GRAVITY 1.014; UROBILINOGEN,URINE NEGATIVE mg/dL (<2.0)
--- NOTE | 2017-10-31 02:46 | RADIOLOGY REPORT (SQ) ---
EXAM DESCRIPTION: Acute abdominal series COMPLETED DATE/TME: 10/31/2017 02:01 CLINICAL HISTORY: 62 years, Female, abdominal pain COMPARISON: 10/10/2027 FINDINGS: Single view of the chest with upright and supine views of the abdomen. Tortuosity of the thoracic aorta. Heart is not enlarged. No consolidation, pneumothorax, or pleural effusion. Prior cholecystectomy. No free intraperitoneal air. No definite abnormal calcifications or organomegaly. No dilated loops of large or small bowel. No acute osseous abnormalities. Degenerative change of the spine. IMPRESSION: 1. No acute pulmonary process. Nonobstructive bowel gas pattern. 2010 [employer]- All Rights Reserved
--- NOTE | 2017-10-31 04:01 | ER Document Report ---
ED General <RADHA ALTMAN - Last Filed: 10/31/17 10:22> - General TRAVEL OUTSIDE OF THE [place] IN LAST 30 DAYS: No <OSOIRO NEVAREZ - Last Filed: 11/01/17 05:05> - General Chief Complaint: Nausea/Vomiting/Diarrhea Stated Complaint: NAUSEA/VOMITING Time Seen by Provider: 10/31/17 01:51 Notes: Patient is a 62-year-old female presents with abdominal pain, vomiting, diarrhea. She had a left inguinal hernia repair [facility] on October 07. She was seen on October 09 due to recurrent pain and fevers and had a CT scan at that time which showed hematoma and possible pneumoperitoneum. She was evaluated by surgery that time and was discharged home. Patient says that she has had some continued pain since then but became much worse tonight she started vomiting tonight. No fevers. No blood in her stool. No blood or emesis. She does have previous history of bowel obstructions as well as chronic narcotic use. (OSORIO NEVAREZ) - Related Data Allergies/Adverse Reactions: IVP dye Allergy (Intermediate, Uncoded 04/28/17 16:10) rash Past Medical History - Social History Smoking Status: Never Smoker Frequency of alcohol use: None Drug Abuse: None Family History: CAD, CVA, Malignancy - Past Medical History Cardiac Medical History: Reports: Hx Hypercholesterolemia, Hx Hypertension Pulmonary Medical History: Reports: Hx Pneumonia - left lung scarring Denies: Hx Asthma, Hx Bronchitis, Hx COPD, Hx Respiratory Failure, Hx Sleep Apnea, Hx Tuberculosis Neurological Medical History: Reports: Hx Cerebrovascular Accident - Patient reports "mini stroke" Endocrine Medical History: Denies: Hx Diabetes Mellitus Type 1, Hx Diabetes Mellitus Type 2 Renal/ Medical History: Denies: Hx End Stage Renal Disease, Hx Kidney Stones, Hx Ovarian Cysts, Hx Peritoneal Dialysis Malignancy Medical History: Denies: Hx Breast Cancer, Hx Cervical Cancer, Hx Leukemia, Hx Lung Cancer, Hx Ovarian Cancer GI Medical History: Reports: Hx Gastroesophageal Reflux Disease, Hx Ulcer. Denies: Hx Crohn's Disease, Hx Hiatal Hernia, Hx Irritable Bowel, Hx Liver Failure, Hx Pancreatitis Musculoskeletal Medical History: Reports Hx Arthritis, Denies Hx Fibromyalgia, Denies Hx Multiple Sclerosis, Denies Hx Muscular Dystrophy Psychiatric Medical History: Reports: Hx Depression, Hx Post Traumatic Stress Disorder Denies: Hx Bipolar Disorder, Hx Dementia, Hx Schizophrenia Traumatic Medical History: Reports: Hx Fractures - left wrist Infectious Medical History: Denies: Hx HIV Past Surgical History: Reports: Hx Adenoidectomy, Hx Appendectomy, Hx Hysterectomy, Hx Orthopedic Surgery - carpal tunnel, Other - Sigmoid colectomy, rectopexy Dr. Fowler 2013; abdominal wall hernia surg. Denies: Hx Bowel Surgery, Hx Section, Hx Cholecystectomy, Hx Colostomy, Hx Coronary Artery Bypass Graft, Hx Gastric Bypass Surgery, Hx Herniorrhaphy, Hx Mastectomy , Hx Pacemaker, Hx Tonsillectomy, Hx Tubal Ligation - Immunizations Hx Diphtheria, Pertussis, Tetanus Vaccination: Yes <OSORIO NEVAREZ - Last Filed: 11/01/17 05:05> Review of Systems <RADHA ALTMAN - Last Filed: 10/31/17 10:22> <OSORIO NEVAREZ - Last Filed: 11/01/17 05:05> - Review of Systems Notes: My Normal Review Basic REVIEW OF SYSTEMS: CONSTITUTIONAL : Denies fever, chills, or sweats. Denies recent illness. RESPIRATORY: Denies cough, cold, or chest congestion. Denies shortness of breath, difficulty breathing, or wheezing. GASTROINTESTINAL: abdominal pain and vomiting. GENITOURINARY: Denies difficulty urinating, painful urination, burning, frequency, or blood in urine. MUSCULOSKELETAL: Denies neck or back pain or joint pain or swelling. SKIN: Denies rash or skin lesions. NEUROLOGICAL: Denies altered mental status or loss of consciousness. Denies headache. Denies weakness or paralysis or loss of use of either side. Denies problems with gait or speech. Denies sensory or motor loss. ALL OTHER SYSTEMS REVIEWED AND NEGATIVE. (OSORIO NEVAREZ) Physical Exam <RADHA ALTMAN - Last Filed: 10/31/17 10:22> <OSORIO NEVAREZ - Last Filed: 11/01/17 05:05> - Vital signs Vitals: BP 115/99 H 10/31/17 06:58 - Notes Notes: General Appearance: Well nourished, alert, cooperative, no acute distress, moderate obvious discomfort. Vitals: reviewed, See vital signs table. Head: no swelling or tenderness to the head Eyes: PERRL, EOMI, Conjuctiva clear Mouth: No decreasd moisture Lungs: No wheezing, No rales, No rhonci, No accessory muscle use, good air exchange bilaterally. Heart: Normal rate, Regular rythm, No murmur, no rub Abdomen: Normal BS, soft, No rigidity, patient has reproducible pain palpation of her abdomen over left upper and left lower quadrants of her abdomen., No guarding, no rebound, no abdominal masses, no organomegaly Extremities: strength 5/5 in all extremities, good pulses in all extremities, no swelling or tenderness in the extremities, no edema. Skin: warm, dry, appropriate color, no rash Neuro: speech clear, oriented x 3, normal affect, responds appropriately to questions. (OSORIO NEVAREZ) Course - Laboratory Result Diagrams: 10/31/17 04:37 10/31/17 04:37 <RADHA ALTMAN - Last Filed: 10/31/17 10:22> - Laboratory Result Diagrams: 10/31/17 04:37 10/31/17 04:37 <OSORIO NEVAREZ - Last Filed: 11/01/17 05:05> - Re-evaluation Re-evalutation: 10/31/17 04:05 Patient's pain was initially improving with the morphine but then her pain started to become worse again after drinking the first part of oral contrast. She continuously is belching. Says she cannot drink anymore contrast. She has recurrence of pain. I will order her more pain medication. CT scan is pending. Initial labs hemolyzed and therefore we are waiting for lab to redraw her blood work. 10/31/17 06:11 Patient has a history of small bowel obstruction with a transition point right lower quadrant. She has a long history of recurrent small bowel obstructions and her symptoms and exam findings are consistent with that and that she has had intractable vomiting and pain in her abdomen. I have ordered an NG tube. I have talked with Dr. Alvarado who requests that patient receive IV fluids and hold patient ER until he comes on evaluates patient. (OSORIO NEVAREZ) - Vital Signs Vital signs: Temp Pulse Resp BP Pulse Ox 97.4 F 66 15 147/68 H 98 10/31/17 23:23 10/31/17 23:23 10/31/17 23:23 10/31/17 23:23 10/31/17 23:23 - Laboratory Laboratory results interpreted by me: 10/31/17 10/31/17 10/31/17 02:09 04:37 04:37 Seg Neutrophils % 85.4 H Lymphocytes % 10.3 L Monocytes % 2.9 L Sodium 145.9 H Glucose 125 H Calcium 10.4 H Total Protein 8.6 H Ur Leukocyte Esterase TRACE H Discharge - Discharge Admitting Provider: Surgicalist - [place] Unit Admitted: Surgical Floor <RADHA ALTMAN - Last Filed: 10/31/17 10:22> - Discharge Admitting Provider: Surgicalist Unit Admitted: Surgical Floor <OSORIO NEVAREZ - Last Filed: 11/01/17 05:05> - Discharge Clinical Impression: Small bowel obstruction Condition: Good Disposition: ADMITTED INPATIENT
[2017-10-31 05:06] LABS: ABSOLUTE BASOPHILS # (AUTO) 0.1 10^3/uL (0.0-0.2); ABSOLUTE EOSINOPHILS # (AUTO) 0.1 10^3/uL (0.0-0.6); ABSOLUTE MONOCYTES (AUTO) 0.3 10^3/uL (0.1-1.4); BASOPHILS % (AUTO) 0.8 % (0-2); EOSINOPHILS % (AUTO) 0.6 % (0-6); HEMATOCRIT 42.8 % (36.0-47.0); HEMOGLOBIN 15.2 g/dL (12.0-15.5); LYMPHOCYTES % (AUTO) 10.3 % (13-45); MEAN CORPUSCULAR HEMOGLOBIN 31.5 pg (27.0-33.4); MEAN CORPUSCULAR HGB CONC 35.4 g/dL (32.0-36.0); MEAN CORPUSCULAR VOLUME 89 fl (80-97); MONOCYTES % (AUTO) 2.9 % (3-13); PLATELET COUNT 252 10^3/uL (150-450); RED BLOOD COUNT 4.82 10^6/uL (3.72-5.28); RED CELL DISTRIBUTION WIDTH 13.5 % (11.5-14.0); SEGMENTED NEUTROPHILS % (AUTO) 85.4 % (42-78); TOTAL CELLS COUNTED % (AUTO) 100 %; WHITE BLOOD COUNT 9.3 10^3/uL (4.0-10.5)
[2017-10-31 05:09] LABS: ALANINE AMINOTRANSFERASE 20 U/L (9-52); ALKALINE PHOSPHATASE 74 U/L (38-126); ANION GAP 16 (5-19); ASPARTATE AMINO TRANSFERASE 29 U/L (14-36); BILIRUBIN,DIRECT 0.4 mg/dL (0.0-0.4); BILIRUBIN,TOTAL 0.6 mg/dL (0.2-1.3); BLOOD UREA NITROGEN 14 mg/dL (7-20); CALCIUM 10.4 mg/dL (8.4-10.2); CARBON DIOXIDE 27 mmol/L (22-30); CHLORIDE 103 mmol/L (98-107); GLUCOSE 125 mg/dL (75-110); LIPASE 86.8 U/L (23-300); POTASSIUM 4.4 mmol/L (3.6-5.0); SODIUM 145.9 mmol/L (137-145); TOTAL PROTEIN 8.6 g/dL (6.3-8.2)
--- NOTE | 2017-10-31 05:57 | RADIOLOGY REPORT (SQ) ---
EXAM DESCRIPTION: CT ABDOMEN PELVIS WITHOUT IV CONTRAST COMPLETED DATE/TME: 10/31/2017 02:02 CLINICAL HISTORY: Diffuse abdominal pain. COMPARISON: None Available. TECHNIQUE: CT of the abdomen and pelvis without IV contrast. Oral contrast administered. Evaluation of the solid organs and vasculature is suboptimal due to lack of IV contrast. DLP: 311.17 mGy-cm FINDINGS: Lung Bases: Mild bilateral dependent atelectasis. Bones: No destructive bone lesions identified. Mild endplate spondylosis. Abdomen: Liver: The liver has normal size and density. Gallbladder: Prior cholecystectomy. Spleen, Pancreas, and Adrenal Glands: The spleen, pancreas, and adrenal glands are unremarkable. Kidneys: The kidneys have normal size and contour without evidence of hydronephrosis. No obstructing ureteral calculi. Vasculature: Aortoiliac atherosclerosis. IVC is unremarkable. Stomach: The stomach and duodenum have normal course. Other: No free intraperineal air identified. Interval resolution of free intraperitoneal air as well as subcutaneous air. No free fluid or lymphadenopathy. Pelvis: Bladder: Urinary bladder is unremarkable. Bowel: Dilated loops of proximal small bowel with transition point to normal caliber bowel in the right lower abdomen. There is fecalization of the most distal loops of dilated bowel. Appendix: Normal appendix. Pelvis: Prior hysterectomy. Minimal fluid in the left inguinal canal. IMPRESSION: 1. Findings suggestive of at least partial small bowel obstruction with transition point in the right lower abdomen. 2. Small amount of fluid in the left inguinal canal. This exam was performed according to our departmental dose-optimization program, which includes automated exposure control, adjustment of the mA and/or kV according to patient size and/or use of iterative reconstruction technique.
[2017-10-31] MEDS ORDERED: NORMAL SALINE 1000 ML 1,000 ML IV ONE (06:05)
[2017-10-31] MEDS ORDERED: LIDOCAINE 2% JELLY 5 ML TUBE TOP ONE (06:10)
[2017-10-31] MEDS ORDERED: ONDANSETRON 4 MG TAB.RAPDIS ONE (10:02)
--- NOTE | 2017-10-31 10:27 | PDOC H&P ---
History of Present Illness Admission Date/PCP: TAMRA MASON MD Patient complains of: Abdominal pain nausea and vomiting History of Present Illness: CARMEN HORTON is a 62 year old female Presents emergency department via ground rescue complaining of abdominal pain nausea vomiting inability to have a bowel movement for 3 days. Bowel obstructions with nonoperative resolution over the last several years, with several episodes in 2018. Approximately 3 weeks ago the patient underwent laparoscopic left inguinal herniorrhaphy by a surgeon in [place]. 3 days later she was in the emergency department complaining of abdominal pain. At that time she had residual pneumoperitoneum, abdominal wall hematoma and residual air in her abdominal wall. According to the patient she subsequently developed a infection at her operative site and was treated with p.o. antibiotics by Dr. Mason on an outpatient basis. The patient clinically improved and did well for approximately 10 days, now presents with the above symptoms. She seen in the emergency department where she had a CT scan of the abdomen and pelvis with limited oral contrast which showed findings suspicious for small bowel obstruction. Surgery was consulted and she was advised admission. Past Medical History Cardiac Medical History: Reports: Hyperlipidema, Hypertension Pulmonary Medical History: Reports: Pneumonia - left lung scarring Denies: Asthma, Bronchitis, Chronic Obstructive Pulmonary Disease (COPD), Respiratory Failure, Sleep Apnea, Tuberculosis Endocrine Medical History: Denies: Diabetes Mellitus Type 1, Diabetes Mellitus Type 2 Renal/ Medical History: Denies: End Stage Renal Disease Malignancy Medical History: Denies: Breast Cancer, Cervical Cancer, Leukemia, Lung Cancer, Ovarian Cancer GI Medical History: Reports: Gastroesophageal Reflux Disease Denies: Crohn's Disease, Hiatal Hernia Musculoskeltal Medical History: Reports: Arthritis Denies: Fibromyalgia Psychiatric Medical History: Reports: Depression, Post Traumatic Stress Disorder Denies: Bipolar Disorder, Dementia Hematology: Denies: Anemia, Hemophilia, Sickle Cell Disease Infectious Medical History: Denies: HIV Past Surgical History Past Surgical History: Reports: Adenoidectomy, Appendectomy, Hysterectomy, Orthopedic Surgery - carpal tunnel, Other - Sigmoid colectomy, rectopexy Dr. Fowler 2012; abdominal wall hernia surg Denies: Amputation, Section, Cholecystectomy, Colostomy, Coronary Artery Bypass Graft, Gastric Bypass Surgery, Herniorrhaphy, Mastectomy, Pacemaker, Tonsillectomy, Tubal Ligation Social History Smoking Status: Never Smoker Frequency of Alcohol Use: None Hx Recreational Drug Use: No Drugs: None Hx Prescription Drug Abuse: No Family History Family History: CAD, CVA, Malignancy Parental Family History Reviewed: Yes Children Family History Reviewed: Yes Sibling(s) Family History Reviewed.: Yes Medication/Allergy Home Medications: Aspirin [Aspirin EC] 81 mg PO DAILY 09/11/17 Cholecalciferol (Vitamin D3) [Vitamin D3 2000 unit Tablet] 2,000 unit PO DAILY 09/11/17 Eszopiclone [Lunesta] 3 mg PO QHS 09/11/17 Famotidine [Pepcid] 20 mg PO BID 09/11/17 Fluticasone Propionate [Flonase Nasal [place] 50 Mcg/[place] 16 gm] 1 spray NASL DAILYP PRN 09/11/17 Hydrocodone/Acetaminophen [Hydrocodon-Acetaminophen 5-325] 1 each PO BIDP PRN L.acidoph,Paracasei, B.lactis [Probiotic] 1 each PO DAILY 09/11/17 Linaclotide [Linzess] 72 mcg PO QAM 09/11/17 Meclizine HCl [Antivert 12.5 mg Tablet] 12.5 mg PO BIDP PRN 09/11/17 Nitroglycerin [Nitrostat 0.4 mg (1/150 Gr) Tabs 25/Bottle] 1 tab SL Q5MP PRN Simvastatin [Zocor 80 mg Tablet] 80 mg PO QHS 09/11/17 Vortioxetine Hydrobromide [Brintellix] 15 mg PO DAILY 09/11/17 Ondansetron [Zofran Odt 4 mg Tablet] 1 - 2 tab PO Q4H PRN #15 tab.rapdis Allergies/Adverse Reactions: IVP dye Allergy (Intermediate, Uncoded 04/28/17 16:10) rash Review of Systems Constitutional: PRESENT: other - Patient has had some weight loss recently Ears: ABSENT: hearing changes Cardiovascular: ABSENT: chest pain, dyspnea on exertion, edema, orthropnea, palpitations Gastrointestinal: PRESENT: as per HPI Integumentary: PRESENT: other - Chronic back pain Physical Exam Vital Signs: Temp Pulse Resp BP Pulse Ox 76 18 131/76 H 97 10/31/17 09:35 10/31/17 09:35 10/31/17 09:35 10/31/17 09:35 General appearance: PRESENT: mild distress Head exam: PRESENT: normocephalic Eye exam: PRESENT: EOMI Mouth exam: PRESENT: dry mucosa, other - Nasogastric tube in position Neck exam: PRESENT: full ROM Respiratory exam: PRESENT: rhonchi Pulses: PRESENT: normal radial pulses, normal femoral pulses, normal dorsalis pedis pul GI/Abdominal exam: PRESENT: other - Operative scars consistent with remote and recent surgery; there is mild abdominal distention. No peritoneal signs; there is some mild tenderness but no rigidity. Groins are without masses. Neurological exam: PRESENT: alert, awake, oriented to person, oriented to place , oriented to time Psychiatric exam: PRESENT: appropriate affect Results Laboratory Results: 10/31/17 04:37 10/31/17 04:37 10/31/17 10/31/17 10/31/17 02:09 03:24 03:24 WBC Cancelled RBC Cancelled Hgb Cancelled Hct Cancelled MCV Cancelled MCH Cancelled MCHC Cancelled RDW Cancelled Plt Count Cancelled Seg Neutrophils % Cancelled Lymphocytes % Cancelled Monocytes % Cancelled Eosinophils % Cancelled Basophils % Cancelled Absolute Neutrophils Cancelled Absolute Lymphocytes Cancelled Absolute Monocytes Cancelled Absolute Eosinophils Cancelled Absolute Basophils Cancelled Sodium Cancelled Potassium Cancelled Chloride Cancelled Carbon Dioxide Cancelled Anion Gap Cancelled BUN Cancelled Creatinine Cancelled Est GFR ( Amer) Cancelled Est GFR (Non-Af Amer) Cancelled Glucose Cancelled Lactic Acid Calcium Cancelled Total Bilirubin Cancelled AST Cancelled ALT Cancelled Alkaline Phosphatase Cancelled Total Protein Cancelled Albumin Cancelled Lipase Cancelled Urine Color YELLOW Urine Appearance CLEAR Urine pH 6.0 Ur Specific [place] 1.014 Urine Protein NEGATIVE Urine Glucose (UA) NEGATIVE Urine Ketones NEGATIVE Urine Blood NEGATIVE Urine Nitrite NEGATIVE Ur Leukocyte Esterase TRACE H Urine WBC (Auto) 5 Urine RBC (Auto) 1 Blood Type Antibody Screen 10/31/17 10/31/17 10/31/17 04:37 04:37 04:37 WBC 9.3 RBC 4.82 Hgb 15.2 Hct 42.8 MCV 89 MCH 31.5 MCHC 35.4 RDW 13.5 Plt Count 252 Seg Neutrophils % 85.4 H Lymphocytes % 10.3 L Monocytes % 2.9 L Eosinophils % 0.6 Basophils % 0.8 Absolute Neutrophils 8.0 Absolute Lymphocytes 1.0 Absolute Monocytes 0.3 Absolute Eosinophils 0.1 Absolute Basophils 0.1 Sodium 145.9 H Potassium 4.4 Chloride 103 Carbon Dioxide 27 Anion Gap 16 BUN 14 Creatinine 0.60 Est GFR ( Amer) > 60 Est GFR (Non-Af Amer) > 60 Glucose 125 H Lactic Acid 0.9 Calcium 10.4 H Total Bilirubin 0.6 AST 29 ALT 20 Alkaline Phosphatase 74 Total Protein 8.6 H Albumin 5.0 Lipase 86.8 Urine Color Urine Appearance Urine pH Ur Specific [place] Urine Protein Urine Glucose (UA) Urine Ketones Urine Blood Urine Nitrite Ur Leukocyte Esterase Urine WBC (Auto) Urine RBC (Auto) Blood Type Antibody Screen 10/31/17 04:37 WBC RBC Hgb Hct MCV MCH MCHC RDW Plt Count Seg Neutrophils % Lymphocytes % Monocytes % Eosinophils % Basophils % Absolute Neutrophils Absolute Lymphocytes Absolute Monocytes Absolute Eosinophils Absolute Basophils Sodium Potassium Chloride Carbon Dioxide Anion Gap BUN Creatinine Est GFR ( Amer) Est GFR (Non-Af Amer) Glucose Lactic Acid Calcium Total Bilirubin AST ALT Alkaline Phosphatase Total Protein Albumin Lipase Urine Color Urine Appearance Urine pH Ur Specific [place] Urine Protein Urine Glucose (UA) Urine Ketones Urine Blood Urine Nitrite Ur Leukocyte Esterase Urine WBC (Auto) Urine RBC (Auto) Blood Type O POSITIVE Antibody Screen NEGATIVE Impressions: Acute Abdomen Series 10/31/17 02:01 IMPRESSION: 1. No acute pulmonary process. Nonobstructive bowel gas pattern. 2010 [employer]- All Rights Reserved Abdomen/Pelvis CT 10/31/17 02:02 IMPRESSION: 1. Findings suggestive of at least partial small bowel obstruction with transition point in the right lower abdomen. 2. Small amount of fluid in the left inguinal canal. This exam was performed according to our departmental dose-optimization program, which includes automated exposure control, adjustment of the mA and/or kV according to patient size and/or use of iterative reconstruction technique. Assessment & Plan - Diagnosis (1) Small bowel obstruction Is this a current diagnosis for this admission?: Yes Plan: Impression: Chronic, recurrent, partial small bowel obstruction patient with multiple previous episodes of small bowel obstruction resolved nonoperatively Recommendations: 1. We will keep n.p.o. nasogastric decompression and IV fluids, H2 bonny 2. We will check abdominal films in the morning to ascertain migration of contrast. (2) Chronic pain Is this a current diagnosis for this admission?: Yes (3) Partial small bowel obstruction Is this a current diagnosis for this admission?: Yes (4) Postprocedural hematoma of abdominal wall Is this a current diagnosis for this admission?: Yes Plan: Abdominal wall hematoma has resolved from laparoscopic surgery 1 month ago - Time Time Spent: 50 to 70 Minutes Critical Time spent with patient: 15-24 minutes Medications reviewed and adjusted accordingly: Yes Anticipated discharge: Home - Inpatient Certification Based on my medical assessment, after consideration of the patient's comorbidities, presenting symptoms, or acuity I expect that the services needed warrant INPATIENT care.: Yes I certify that my determination is in accordance with my understanding of Medicare's requirements for reasonable and necessary INPATIENT services [42 CFR 412.3e].: Yes Medical Necessity: Need For IV Fluids, Need for Pain Control, Need for IV Antibiotics
[2017-10-31] MEDS ORDERED: ONDANSETRON HCL INJ/PF 4 MG/2 ML SDV IV PRN (10:29)
[2017-10-31] MEDS ORDERED: KETOROLAC TROMETHAMINE INJ/PF 30 MG/1 ML SDV ONE (11:25)
--- NOTE | 2017-10-31 11:29 | RADIOLOGY REPORT (SQ) ---
EXAM DESCRIPTION: NASO/OROGASTRIC TUBE PLACEMENT COMPLETED DATE/TIME: 10/31/2017 7:16 am REASON FOR STUDY: NG tube placement COMPARISON: None. TECHNIQUE: AP thorax/abdomen for tube placement LIMITATIONS: None. FINDINGS: Nasogastric tube tip in the stomach. IMPRESSION: Nasogastric tube tip in the stomach. TECHNICAL DOCUMENTATION: JOB ID: [id number] [employer]- All Rights Reserved Reading location - IP/workstation name: [email or web address]
[2017-10-31] MEDS: KETOROLAC TROMETHAMINE INJ/PF 30 MG/1 ML SDV IV PRN ×2 (11:43→20:32)
[2017-10-31] MEDS: RINGERS SOLUTION,LACTATED 1,000 ML IV PRN (11:46)
[2017-10-31] MEDS ORDERED: PANTOPRAZOLE SODIUM 40 MG VIAL IV ONE (12:00)
[2017-10-31] MEDS: PROMETHAZINE HCL INJ 25 MG/1 ML VIAL IV PRN ×2 (14:32→19:24)
[2017-11-01] MEDS: RINGERS SOLUTION,LACTATED 1,000 ML IV PRN ×2 (02:46→09:38)
[2017-11-01] MEDS: PROMETHAZINE HCL INJ 25 MG/1 ML VIAL IV PRN ×3 (02:47→18:19)
[2017-11-01] MEDS: KETOROLAC TROMETHAMINE INJ/PF 30 MG/1 ML SDV IV PRN ×3 (05:51→20:52)
--- NOTE | 2017-11-01 08:20 | RADIOLOGY REPORT (SQ) ---
EXAM DESCRIPTION: ABDOMEN 2 VIEWS COMPLETED DATE/TIME: 11/01/2017 8:06 am REASON FOR STUDY: Interval change of small bowel obstruction COMPARISON: CT abdomen and pelvis 05/07/2017, 09/11/2017, 10/09/2017, 10/31/2017 Abdominal series 09/11/2017, 10/31/2017 Small bowel follow-through 09/12/2017 NUMBER OF VIEWS: Two views. TECHNIQUE: Supine and erect radiographic images of the abdomen acquired. LIMITATIONS: None. FINDINGS: FREE AIR: None. No abnormal gas collections. LUNG BASES: Clear. BOWEL GAS PATTERN: A nasogastric tube decompresses the stomach. There are few midepigastric dilated small bowel loops. Colon decompressed. Row of anastomotic melissa post sigmoid colectomy. CALCIFICATIONS: No suspicious calcifications. SOFT TISSUES: No gross mass or suggestion of organomegaly. HARDWARE: None in the abdomen. BONES: No acute fracture. No worrisome bone lesions. OTHER: No other significant finding. IMPRESSION: Nasogastric tube tip and side port in the stomach Mildly dilated mid epigastric small bowel loops, likely from persistent partial small bowel obstructi on TECHNICAL DOCUMENTATION: JOB ID: [id number] [employer]- All Rights Reserved Reading location - IP/workstation name: [email or web address]
--- NOTE | 2017-11-01 10:45 | Physician Advisory Note ---
Physician Advisor ProgressNote .: [facility] I have reviewed the medical record for this patient. Physician Advisor Statement: Please consider documenting, if you agree: 1. "mild hypernatremia due to dehydration from N/V of PSBO" (tx'd w/IVF) 2. Medical necessity: if pt not safe for d/c today, please document clinical reasons [such as: "abd still firm/distended/tender, still needing NGT & IVF/NPO , ..."], & may change to Inpatient status. Status: see above. Thanks! CK
[2017-11-01] MEDS: NORMAL SALINE 1000 ML 1,000 ML IV PRN (18:20)
--- NOTE | 2017-11-01 20:05 | PDOC PROGRESS REPORT ---
Subjective Progress Note for:: 11/01/17 Subjective:: LLQ pains Reason For Visit: PARTIAL SMALL BOWEL OBSTRUCTION Physical Exam Vital Signs: Temp Pulse Resp BP Pulse Ox 98.6 F 71 14 123/55 L 96 11/01/17 15:39 11/01/17 15:39 11/01/17 15:39 11/01/17 15:39 11/01/17 15:39 Intake & Output 10/31/17 11/01/17 11/02/17 06:59 06:59 06:59 Intake Total 180 Output Total 50 Balance 130 Exam: Abd is soft with LLQ tenderness Results Impressions: Gastrostomy Tube Placement 10/31/17 00:00 IMPRESSION: Nasogastric tube tip in the stomach. Acute Abdomen Series 10/31/17 02:01 IMPRESSION: 1. No acute pulmonary process. Nonobstructive bowel gas pattern. 2011 [employer]- All Rights Reserved Abdomen/Pelvis CT 10/31/17 02:02 IMPRESSION: 1. Findings suggestive of at least partial small bowel obstruction with transition point in the right lower abdomen. 2. Small amount of fluid in the left inguinal canal. This exam was performed according to our departmental dose-optimization program, which includes automated exposure control, adjustment of the mA and/or kV according to patient size and/or use of iterative reconstruction technique. Abdomen X-Ray 11/01/17 07:00 IMPRESSION: Nasogastric tube tip and side port in the stomach Mildly dilated mid epigastric small bowel loops, likely from persistent partial small bowel obstruction Assessment & Plan - Time Time Spent with patient: 15-24 minutes - Plan Summary Plan Summary: Abd XRay today showed persistent partial small bowel obstruction Will get SBFT in am Keep NGT for now
[2017-11-02] MEDS: NORMAL SALINE 1000 ML 1,000 ML IV PRN (01:30)
[2017-11-02] MEDS: PROMETHAZINE HCL INJ 25 MG/1 ML VIAL IV PRN (02:42)
[2017-11-02] MEDS ORDERED: DIPHENHYDRAMINE HCL 50 MG/ML VIAL IV PRN (08:45)
[2017-11-02] MEDS ORDERED: DIPHENHYDRAMINE HCL 50 MG/ML VIAL ONE (09:06)
[2017-11-02] MEDS: ENOXAPARIN SODIUM INJ 30 MG/0.3 ML DISP.SYRIN SUBCUT SCH (09:11)
[2017-11-02] MEDS: ONDANSETRON 4 MG TAB.RAPDIS PO PRN (11:45)
--- NOTE | 2017-11-02 12:01 | RADIOLOGY REPORT (SQ) ---
EXAM DESCRIPTION: SMALL BOWEL SERIES COMPLETED DATE/TIME: 11/02/2017 11:21 am REASON FOR STUDY: Small bowel obstruction COMPARISON: CT abdomen pelvis 05/07/2017, 05/08/2017, 09/11/2017, 10/09/2017, 10/31/2017 Abdominal films 11/01/2017, 10/31/2017, 09/12/2017 Small bowel follow-through 09/12/2017 FLUOROSCOPY TIME: 0.9 seconds 9 series of digital images saved to PACS. LIMITATIONS: None. PROCEDURE: Initial monument setter image of abdomen acquired, followed by administration of oral contrast. Se rial radiographic images acquired. Fluoroscopic images recorded of the terminal ileum and other cali cated areas. All images stored on PACS. FINDINGS: [employer] KEY HOLDER KUB: Nasogastric tube tip and side port in the stomach. Nonobstructive bowel gas pa ttern. Clips right upper quadrant post cholecystectomy. STOMACH: Daughter 40 mL of Gastrografin was instilled through the patient's nasogastric tube. Limite d view of the stomach is unremarkable. Prompt gastric emptying into normal caliber duodenum. DUODENUM: Normal mucosal pattern with adequate distention. No displacement or obstruction. Moderate -sized diverticulum 3rd portion duodenum JEJUNUM: Normal mucosal pattern. No dilatation, segmentation, strictures or masses. ILEUM: Normal mucosal pattern. No dilatation, segmentation, strictures or masses. TERMINAL ILEUM AND ILEO-CECAL VALVE: Normal mucosal pattern without "cobble-stoning" or stricture. N ormal compression. PROXIMAL COLON: Incompletely imaged. No abnormality. Oral contrast is seen in the ascending colon b y 1 hour OTHER: No other significant finding. IMPRESSION: No current evidence for small-bowel obstruction. COMMENT: Quality ID [id number]: Final reports for procedures using fluoroscopy that document radiation exp osure indices, or exposure time and number of fluorographic images (if radiation exposure indices are not available) TECHNICAL DOCUMENTATION: JOB ID: [id number] [employer]- All Rights Reserved Reading location - IP/workstation name: [email or web address]
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
[2017-11-02] MEDS: KETOROLAC TROMETHAMINE INJ/PF 30 MG/1 ML SDV IV PRN (17:08)
[2017-11-03] MEDS: ONDANSETRON 4 MG TAB.RAPDIS PO PRN (04:50)
[2017-11-03] MEDS: KETOROLAC TROMETHAMINE INJ/PF 30 MG/1 ML SDV IV PRN ×2 (05:27→16:46)
[2017-11-03] MEDS ORDERED: NA PHOS,M-B/NA PHOS,DI-BA (ADULT) 133 ML ENEMA PR ONE (10:00)
[2017-11-03] MEDS: ENOXAPARIN SODIUM INJ 30 MG/0.3 ML DISP.SYRIN SUBCUT SCH (11:31)
[2017-11-03] MEDS: PROMETHAZINE HCL INJ 25 MG/1 ML VIAL IV PRN (21:03)
--- NOTE | 2017-11-03 21:46 | PDOC PROGRESS REPORT ---
Subjective Progress Note for:: 11/03/17 Subjective:: Tolerating small amounts of soft diet and had watery BM. Also c/o LUQ pains mild in intensity Reason For Visit: PARTIAL SMALL BOWEL OBSTRUCTION Physical Exam Vital Signs: Temp Pulse Resp BP Pulse Ox 98.4 F 61 18 146/80 H 97 11/03/17 20:09 11/03/17 20:09 11/03/17 20:09 11/03/17 20:09 11/03/17 20:09 Intake & Output 11/02/17 11/03/17 11/04/17 06:59 06:59 06:59 Intake Total 310 913 5340 Output Total 100 Balance 80 674 1124 Weight 58.7 kg 54.8 kg Exam: abd is soft with minimal tenderness LLQ Results Impressions: Gastrostomy Tube Placement 10/31/17 00:00 IMPRESSION: Nasogastric tube tip in the stomach. Acute Abdomen Series 10/31/17 02:01 IMPRESSION: 1. No acute pulmonary process. Nonobstructive bowel gas pattern. 2010 [employer]- All Rights Reserved Abdomen/Pelvis CT 10/31/17 02:02 IMPRESSION: 1. Findings suggestive of at least partial small bowel obstruction with transition point in the right lower abdomen. 2. Small amount of fluid in the left inguinal canal. This exam was performed according to our departmental dose-optimization program, which includes automated exposure control, adjustment of the mA and/or kV according to patient size and/or use of iterative reconstruction technique. Abdomen X-Ray 11/01/17 07:00 IMPRESSION: Nasogastric tube tip and side port in the stomach Mildly dilated mid epigastric small bowel loops, likely from persistent partial small bowel obstruction Small Bowel X-Ray 11/02/17 07:00 IMPRESSION: No current evidence for small-bowel obstruction. Assessment & Plan - Diagnosis (1) Mild hyponatremia due to dehydration fro Is this a current diagnosis for this admission?: Yes - Time Time Spent with patient: 15-24 minutes - Plan Summary Plan Summary: Continue to increase po intake Asking if she could take her anti constipation medications. She can take them now but prefers to take it at home when she gets discharged tomorrow
--- NOTE | 2017-11-04 08:40 | DISCHARGE SUMMARY E ---
Discharge Summary NAME: CARMEN HORTON : 1955 AGE: 62Y ADMITTED: 11/01/2017 DISCHARGED: 11/04/2017 FINAL DIAGNOSIS: 1. PARTIAL SMALL BOWEL OBSTRUCTION 2. STATUS POST LAPAROSCOPIC LEFT INGUINAL HERNIA REPAIR AT [place] ABOUT 3 WEEKS AGO. HOSPITAL COURSE: This is a 62-year-old female who had a laparoscopic repair left inguinal hernia done in [place] about 3 weeks ago. About 3 days prior to admission noted to have nausea, vomiting, and abdominal pains and inability to have a bowel movement. She was seen in the ED on 10/31/17 where a CAT scan of the abdomen with limited fluoro contrast showed suspicious for a small bowel obstruction. Patient subsequently underwent a small bowel series on 11/02/17 and noted that the small bowel obstruction has been resolved. She was able to move her bowels, though some of it liquid. Her abdominal pain subsided. Was able to tolerate a soft diet on the day of discharge on 11/04/17. She was then discharged improved on 11/04/17 to be followed by her surgeon at [place] or by [facility], who has an office in the local area. She has medications including anticonstipation meds. I told her that she can take all of her medications that she was taking at home. DICTATING PHYSICIAN: MILAD OLIVERA M.D. [id number] PHY#: [id number] ID: [id number] JOB#: [id number] ACCT: [id number] cc:Adelia RAMIREZ M.D. [facility],
[2017-11-04] MEDS: ENOXAPARIN SODIUM INJ 30 MG/0.3 ML DISP.SYRIN SUBCUT SCH (10:12)
[2017-11-04 11:44] VITALS: BP 129/58
== END 2017-11-04 12:37 | disposition home or self-care (01) | DRG 389 ==
LOC: ER 01:12 → INTOOBSV 10:32 → EH 10:32 → 5 13:03 → OBSVTOIN 11-01 16:09
PROVIDERS: ADMIT Surgery; ATTEND Surgery
PROC: 0D9670Z Drainage of Stomach with Drainage Device, Via Natural or Artificial Opening (ICD-10-PCS; principal; 2017-11-01)
DX: K56.690 Other partial intestinal obstruction (principal); E87.0 Hyperosmolality and hypernatremia; E86.0 Dehydration; E78.00 Pure hypercholesterolemia, unspecified; I10 Essential (primary) hypertension; M19.90 Unspecified osteoarthritis, unspecified site; K21.9 Gastro-esophageal reflux disease without esophagitis; F32.9 Major depressive disorder, single episode, unspecified; F43.10 Post-traumatic stress disorder, unspecified; G89.29 Other chronic pain; M54.9 Dorsalgia, unspecified; Z79.82 Long term (current) use of aspirin; Z79.899 Other long term (current) drug therapy; Z91.041 Radiographic dye allergy status; Z90.710 Acquired absence of both cervix and uterus; Z90.49 Acquired absence of other specified parts of digestive tract; Z86.73 Personal history of transient ischemic attack (TIA), and cerebral infarction without residual deficits; Z82.49 Family history of ischemic heart disease and other diseases of the circulatory system; Z82.3 Family history of stroke; Z80.9 Family history of malignant neoplasm, unspecified
CPT/HCPCS: 36415; 43752; 74019; 74022; 74176; 74250; 80053; 81001; 83605; 83690; 85025; 86850; 86900; 86901; 96361; 96374; 96376; 99285; G0378; J1200; J1650; J1885; J2270; J2550; J7030; J7120; S0119; S0164

== ENCOUNTER → 2017-12-07 | Outpatient (CLI) | payer MEDICAID ==
[2017-12-07 09:56] LABS: APPEARANCE,URINE CLEAR; BILIRUBIN,URINE NEGATIVE (NEGATIVE); COLOR,URINE STRAW; GLUCOSE, URINE NEGATIVE (NEGATIVE); KETONES,URINE NEGATIVE (NEGATIVE); LEUKOCYTE ESTERASE,URINE NEGATIVE (NEGATIVE); NITRITE,URINE NEGATIVE (NEGATIVE); PROTEIN,URINE NEGATIVE (NEGATIVE); URINE SPECIFIC GRAVITY 1.008; UROBILINOGEN,URINE NEGATIVE mg/dL (<2.0)
[2017-12-07 09:56] LABS: ABSOLUTE EOSINOPHILS # (AUTO) 0.1 10^3/uL (0.0-0.6); ABSOLUTE LYMPHOCYTES (AUTO) 1.3 10^3/uL (0.5-4.7); ABSOLUTE MONOCYTES (AUTO) 0.3 10^3/uL (0.1-1.4); ABSOLUTE NEUT (AUTO) 2.2 10^3/uL (1.7-8.2); BASOPHILS % (AUTO) 0.7 % (0-2); EOSINOPHILS % (AUTO) 1.6 % (0-6); HEMATOCRIT 39.3 % (36.0-47.0); HEMOGLOBIN 13.4 g/dL (12.0-15.5); LYMPHOCYTES % (AUTO) 34.1 % (13-45); MEAN CORPUSCULAR HEMOGLOBIN 30.1 pg (27.0-33.4); MEAN CORPUSCULAR VOLUME 88 fl (80-97); MONOCYTES % (AUTO) 7.1 % (3-13); PLATELET COUNT 214 10^3/uL (150-450); RED BLOOD COUNT 4.45 10^6/uL (3.72-5.28); RED CELL DISTRIBUTION WIDTH 12.8 % (11.5-14.0); SEGMENTED NEUTROPHILS % (AUTO) 56.5 % (42-78); TOTAL CELLS COUNTED % (AUTO) 100 %; WHITE BLOOD COUNT 3.9 10^3/uL (4.0-10.5)
[2017-12-07 10:02] LABS: ALANINE AMINOTRANSFERASE 36 U/L (9-52); ALBUMIN 4.4 g/dL (3.5-5.0); ALKALINE PHOSPHATASE 61 U/L (38-126); ANION GAP 13 (5-19); ASPARTATE AMINO TRANSFERASE 35 U/L (14-36); BILIRUBIN,DIRECT 0.2 mg/dL (0.0-0.4); BILIRUBIN,TOTAL 0.6 mg/dL (0.2-1.3); BLOOD UREA NITROGEN 14 mg/dL (7-20); CALCIUM 9.5 mg/dL (8.4-10.2); CARBON DIOXIDE 25 mmol/L (22-30); CHLORIDE 104 mmol/L (98-107); GLUCOSE 88 mg/dL (75-110); POTASSIUM 4.1 mmol/L (3.6-5.0); SODIUM 141.5 mmol/L (137-145); TOTAL PROTEIN 7.6 g/dL (6.3-8.2)
== END ==
LOC: LAB 09:25
PROVIDERS: ATTEND Surgery
DX: R10.84 Generalized abdominal pain (principal)
CPT/HCPCS: 36415; 80048; 80076; 81001; 85025; 87086

== ENCOUNTER 2018-01-10 06:16 | Inpatient (IN) | payer MEDICAID ==
[2018-01-10] MEDS ORDERED: RINGERS SOLUTION,LACTATED 1,000 ML IV ONE (07:35)
[2018-01-10] MEDS ORDERED: METOCLOPRAMIDE HCL INJ/PF 10 MG/2 ML SDV IV ONE (07:35)
--- NOTE | 2018-01-10 07:38 | ER Document Report ---
ED Medical Screen (RME) - General Chief Complaint: Nausea/Vomiting Stated Complaint: ABDOMINAL PAIN Time Seen by Provider: 01/10/18 07:32 Mode of Arrival: Medic Information source: Patient Notes: Patient presents emergency department with complaints of severe abdominal pain. Patient reports she woke up at approximately 1230 am with generalized abdominal pain. Abdomen very ttp no matter where I palpate. Reports vomited over 5 times today. She was given Zofran via EMS but is still vomiting. Last bowel movement was yesterday morning. Reports history of small bowel obstructions. TRAVEL OUTSIDE OF THE [place] IN LAST 30 DAYS: No - Related Data Allergies/Adverse Reactions: IVP dye Allergy (Intermediate, Uncoded 04/28/17 16:10) rash Past Medical History - Past Medical History Cardiac Medical History: Reports: Hx Hypercholesterolemia, Hx Hypertension Pulmonary Medical History: Reports: Hx Pneumonia - left lung scarring Denies: Hx Asthma, Hx Bronchitis, Hx COPD, Hx Respiratory Failure, Hx Sleep Apnea, Hx Tuberculosis Neurological Medical History: Reports: Hx Cerebrovascular Accident - Patient reports "mini stroke" Endocrine Medical History: Denies: Hx Diabetes Mellitus Type 1, Hx Diabetes Mellitus Type 2 Renal/ Medical History: Denies: Hx End Stage Renal Disease, Hx Kidney Stones, Hx Ovarian Cysts, Hx Peritoneal Dialysis Malignancy Medical History: Denies: Hx Breast Cancer, Hx Cervical Cancer, Hx Leukemia, Hx Lung Cancer, Hx Ovarian Cancer GI Medical History: Reports: Hx Gastroesophageal Reflux Disease, Hx Ulcer. Denies: Hx Crohn's Disease, Hx Hiatal Hernia, Hx Irritable Bowel, Hx Liver Failure, Hx Pancreatitis Musculoskeltal Medical History: Reports Hx Arthritis, Denies Hx Fibromyalgia, Denies Hx Multiple Sclerosis, Denies Hx Muscular Dystrophy Psychiatric Medical History: Reports: Hx Depression, Hx Post Traumatic Stress Disorder Denies: Hx Bipolar Disorder, Hx Dementia, Hx Schizophrenia Traumatic Medical History: Reports: Hx Fractures - left wrist Infectious Medical History: Denies: Hx HIV Past Surgical History: Reports: Hx Adenoidectomy, Hx Appendectomy, Hx Hysterectomy, Hx Orthopedic Surgery - carpal tunnel, Other - Sigmoid colectomy, rectopexy Dr. Fowler 2013; abdominal wall hernia surg. Denies: Hx Bowel Surgery, Hx Section, Hx Cholecystectomy, Hx Colostomy, Hx Coronary Artery Bypass Graft, Hx Gastric Bypass Surgery, Hx Herniorrhaphy, Hx Mastectomy , Hx Pacemaker, Hx Tonsillectomy, Hx Tubal Ligation - Immunizations Hx Diphtheria, Pertussis, Tetanus Vaccination: Yes History of Influenza Vaccine for 01/2017 - 06/2017 Season: No Physical Exam - Vital signs Vitals: Temp Pulse Resp BP Pulse Ox 97.9 F 76 18 89/59 L 96 01/10/18 07:12 01/10/18 07:12 01/10/18 07:12 01/10/18 07:12 01/10/18 07:12 Course - Vital Signs Vital signs: Temp Pulse Resp BP Pulse Ox 97.9 F 76 18 89/59 L 96 01/10/18 07:12 01/10/18 07:12 01/10/18 07:12 01/10/18 07:12 01/10/18 07:12 Doctor's Discharge - Discharge Referrals: MINE CRAIG MD [Primary Care Provider] - Follow up as needed
[2018-01-10] MEDS ORDERED: MORPHINE SULFATE 10 MG/ML INJ IV ONE (08:26)
--- NOTE | 2018-01-10 08:30 | ER Document Report ---
ED General - General Chief Complaint: Nausea/Vomiting Stated Complaint: ABDOMINAL PAIN Time Seen by Provider: 01/10/18 07:32 Mode of Arrival: Medic TRAVEL OUTSIDE OF THE [place] IN LAST 30 DAYS: No - HPI Notes: Patient is a 62-year-old female that presents to the emergency department for chief complaint of abdominal pain. Patient presents to the ER for diffuse abdominal pain that started at midnight last night. The pain is sharp and radiates from her right upper quadrant through her lower abdomen. The pain has no aggravating or relieving factors. It does feel similar to bowel obstruction she has had in the past. She reports multiple episodes of emesis since last night as well. She denies any diarrhea. She denies fevers. She has not taken any medication at home for her pain. Past Medical History: Depression, hyperlipidemia, DJD, GERD Past Surgical History: Multiple hernia repairs Social History: Denies drugs alcohol and tobacco Family History: Reviewed and noncontributory for presenting illness Allergies: Reviewed, see documented allergy list. REVIEW OF SYSTEMS: CONSTITUTIONAL : No fever No chills No diaphoresis No recent illness EENT: No vision changes No congestion No sore throat CARDIOVASCULAR: No chest pain No palpitations RESPIRATORY: No shortness of breath No cough No difficulty breathing GASTROINTESTINAL: abdominal pain nausea vomiting No diarrhea GENITOURINARY: No dysuria No hematuria No difficulty urinating MUSCULOSKELETAL: No back pain No leg pain No arm pain SKIN: No rashes No lesions LYMPHATIC: No swollen, enlarged glands. NEUROLOGICAL: No lightheadedness No headache No weakness No paresthesias PSYCHIATRIC: No anxiety No depression PHYSICAL EXAMINATION: Vital signs reviewed, nursing noted reviewed. GENERAL: Well-appearing, well-nourished and in no acute distress. HEAD: Atraumatic, normocephalic. EYES: Eyes appear normal, extraocular movements intact, sclera anicteric, conjunctiva are normal. ENT: nares patent, oropharynx clear without exudates. Moist mucous membranes. NECK: Normal range of motion, supple without lymphadenopathy LUNGS: Breath sounds clear to auscultation bilaterally and equal. No wheezes rales or rhonchi. HEART: Regular rate and rhythm without murmurs ABDOMEN: Soft. Diffuse tenderness worse in the right upper quadrant and right lower quadrant with voluntary guarding in those locations. no rebound or rigidity. No masses appreciated. EXTREMITIES: Nontender, good range of motion, no pitting or edema. NEUROLOGICAL: No focal neurological deficits. Moves all extremities spontaneously Motor and sensory grossly intact on exam. PSYCH: Normal mood, normal affect. SKIN: Warm, Dry, normal turgor, no rashes or lesions noted on exposed skin - Related Data Allergies/Adverse Reactions: IVP dye Allergy (Intermediate, Uncoded 04/28/17 16:10) rash Past Medical History - General Information source: Patient - Social History Smoking Status: Unknown if Ever Smoked Chew tobacco use (# tins/day): No Frequency of alcohol use: None Drug Abuse: None Family History: CAD, CVA, Malignancy Patient has suicidal ideation: No Patient has homicidal ideation: No - Past Medical History Cardiac Medical History: Reports: Hx Hypercholesterolemia, Hx Hypertension Pulmonary Medical History: Reports: Hx Pneumonia - left lung scarring Denies: Hx Asthma, Hx Bronchitis, Hx COPD, Hx Respiratory Failure, Hx Sleep Apnea, Hx Tuberculosis Neurological Medical History: Reports: Hx Cerebrovascular Accident - Patient reports "mini stroke" Endocrine Medical History: Denies: Hx Diabetes Mellitus Type 1, Hx Diabetes Mellitus Type 2 Renal/ Medical History: Denies: Hx End Stage Renal Disease, Hx Kidney Stones, Hx Ovarian Cysts, Hx Peritoneal Dialysis Malignancy Medical History: Denies: Hx Breast Cancer, Hx Cervical Cancer, Hx Leukemia, Hx Lung Cancer, Hx Ovarian Cancer GI Medical History: Reports: Hx Gastroesophageal Reflux Disease, Hx Ulcer. Denies: Hx Crohn's Disease, Hx Hiatal Hernia, Hx Irritable Bowel, Hx Liver Failure, Hx Pancreatitis Musculoskeletal Medical History: Reports Hx Arthritis, Denies Hx Fibromyalgia, Denies Hx Multiple Sclerosis, Denies Hx Muscular Dystrophy Psychiatric Medical History: Reports: Hx Depression, Hx Post Traumatic Stress Disorder Denies: Hx Bipolar Disorder, Hx Dementia, Hx Schizophrenia Traumatic Medical History: Reports: Hx Fractures - left wrist Infectious Medical History: Denies: Hx HIV Past Surgical History: Reports: Hx Adenoidectomy, Hx Appendectomy, Hx Hysterectomy, Hx Orthopedic Surgery - carpal tunnel, Other - Sigmoid colectomy, rectopexy Dr. Fowler 2013; abdominal wall hernia surg. Denies: Hx Bowel Surgery, Hx Section, Hx Cholecystectomy, Hx Colostomy, Hx Coronary Artery Bypass Graft, Hx Gastric Bypass Surgery, Hx Herniorrhaphy, Hx Mastectomy , Hx Pacemaker, Hx Tonsillectomy, Hx Tubal Ligation - Immunizations Hx Diphtheria, Pertussis, Tetanus Vaccination: Yes Review of Systems - Review of Systems Notes: Dictated Physical Exam - Vital signs Vitals: Temp Pulse Resp BP Pulse Ox 97.9 F 76 18 89/59 L 96 01/10/18 07:12 01/10/18 07:12 01/10/18 07:12 01/10/18 07:12 01/10/18 07:12 - Notes Notes: Dictated - General General appearance: Appears well, Alert Course - Re-evaluation Re-evalutation: 01/10/18 13:34 Vitals reviewed. Nursing notes reviewed. Patient given IV hydration, pain medicine and antiemetics for symptomatic treatment. Lab work shows elevated lipase at 881. There is no CT evidence of acute pancreatitis however there is partial small bowel obstruction. I discussed patient's care with Dr. Alvarado who evaluated the patient in the emergency room. Patient will be admitted for further care. She is in agreement with the plan and stable at time of admission Laboratory 01/10/18 01/10/18 01/10/18 09:50 09:50 09:50 WBC 13.2 H RBC 5.00 Hgb 14.9 Hct 44.2 MCV 88 MCH 29.9 MCHC 33.8 RDW 13.0 Plt Count 257 Total Counted 100 Seg Neutrophils % Not Reportable Seg Neuts % (Manual) 89 H Band Neutrophils % 2 L Lymphocytes % Not Reportable Lymphocytes % (Manual) 4 L Monocytes % Not Reportable Monocytes % (Manual) 4 Eosinophils % Not Reportable Eosinophils % (Manual) 1 Basophils % Not Reportable Basophils % (Manual) 0 Absolute Neutrophils Not Reportable Abs Neuts (Manual) 12.0 H Absolute Lymphocytes Not Reportable Abs Lymphs (Manual) 0.5 Absolute Monocytes Not Reportable Abs Monocytes (Manual) 0.5 Absolute Eosinophils Not Reportable Absolute Eos (Manual) 0.1 Absolute Basophils Not Reportable Abs Basophils (Manual) 0.0 Platelet Comment ADEQUATE RBC Morph Comment NORMO-CYTIC/CHROMIC Sodium 141.2 Potassium 4.5 Chloride 99 Carbon Dioxide 32 H Anion Gap 10 BUN 9 Creatinine 0.68 Est GFR ( Amer) > 60 Est GFR (Non-Af Amer) > 60 Glucose 126 H Calcium 10.3 H Total Bilirubin 0.8 Direct Bilirubin 0.5 H Neonat Total Bilirubin Not Reportable Neonat Direct Bilirubin Not Reportable Neonat Indirect Bili Not Reportable AST 27 ALT 23 Alkaline Phosphatase 78 Total Protein 8.7 H Albumin 5.0 Lipase 881.0 H Urine Color YELLOW Urine Appearance SLIGHTLY-CLOUDY Urine pH 8.0 Ur Specific Mineral 1.016 Urine Protein NEGATIVE Urine Glucose (UA) NEGATIVE Urine Ketones TRACE H Urine Blood NEGATIVE Urine Nitrite NEGATIVE Urine Bilirubin NEGATIVE Urine Urobilinogen NEGATIVE Ur Leukocyte Esterase NEGATIVE Urine WBC (Auto) 3 Urine RBC (Auto) 2 U Hyaline Cast (Auto) 59 Urine Bacteria (Auto) TRACE Squamous Epi Cells Auto 2 Urine Mucus (Auto) FEW Urine Ascorbic Acid NEGATIVE Abdomen/Pelvis CT 01/10/18 00:00 IMPRESSION: At least partial small bowel obstruction with dilatation of stomach , duodenum and jejunum down to the periumbilical region where a tethered loops and transition point are present. Acute Abdomen Series 01/10/18 07:35 IMPRESSION: 1. A few air-fluid levels on the upright image. The gas pattern may represent an ileus. Correlation suggested, follow-up examination and/or additional imaging if clinically indicated. - Vital Signs Vital signs: Temp Pulse Resp BP Pulse Ox 98.3 F 76 15 127/71 H 96 01/10/18 07:41 01/10/18 07:41 01/10/18 11:01 01/10/18 11:01 01/10/18 11:01 - Laboratory Result Diagrams: 01/10/18 09:50 01/10/18 09:50 Laboratory results interpreted by me: 01/10/18 01/10/18 01/10/18 09:50 09:50 09:50 WBC 13.2 H Seg Neuts % (Manual) 89 H Band Neutrophils % 2 L Lymphocytes % (Manual) 4 L Abs Neuts (Manual) 12.0 H Carbon Dioxide 32 H Glucose 126 H Calcium 10.3 H Direct Bilirubin 0.5 H Total Protein 8.7 H Lipase 881.0 H Urine Ketones TRACE H Discharge - Discharge Clinical Impression: Partial small bowel obstruction Pancreatitis Qualifiers: Chronicity: acute Pancreatitis type: other Acute pancreatitis complication: unspecified Qualified Code(s): K85.80 - Other acute pancreatitis without necrosis or infection Condition: Stable Disposition: ADMITTED INPATIENT Admitting Provider: Surgicalist Unit Admitted: Medical Floor
--- NOTE | 2018-01-10 08:34 | RADIOLOGY REPORT (SQ) ---
EXAM DESCRIPTION: ACUTE ABDOMEN SERIES COMPLETED DATE/TIME: 01/10/2018 8:18 am REASON FOR STUDY: abd pain hs small bowel obstruct COMPARISON: None. NUMBER OF VIEWS: Three views. TECHNIQUE: Frontal chest, supine abdomen and upright/decubitus abdomen radiographic images acquired. LIMITATIONS: None. FINDINGS: CHEST: Lungs clear of infiltrates. Right cardiophrenic angle fat pad. Levoconvex scolios is and degenerative changes involving the thoracic spine. FREE AIR: None. No abnormal gas collections. BOWEL GAS PATTERN: Nonobstructive pattern. Slight distended small bowel loops left mid lower quadran t of the abdomen. A few air-fluid levels on the upright image. CALCIFICATIONS: No suspicious calcifications. HARDWARE: Fine wire surgical sutures and surgical metallic clips in the left hemipelvis, SOFT TISSUES: No gross mass or suggestion of organomegaly. BONES: No acute fracture. No worrisome bone lesions. OTHER: No other significant finding. IMPRESSION: 1. A few air-fluid levels on the upright image. The gas pattern may represent an ileus . Correlation suggested, follow-up examination and/or additional imaging if clinically indicated. TECHNICAL DOCUMENTATION: JOB ID: [id number] [employer]- All Rights Reserved Reading location - IP/workstation name: [email or web address]
[2018-01-10 10:21] LABS: HEMATOCRIT 44.2 % (36.0-47.0); HEMOGLOBIN 14.9 g/dL (12.0-15.5); MEAN CORPUSCULAR HEMOGLOBIN 29.9 pg (27.0-33.4); MEAN CORPUSCULAR HGB CONC 33.8 g/dL (32.0-36.0); MEAN CORPUSCULAR VOLUME 88 fl (80-97); PLATELET COUNT 257 10^3/uL (150-450); WHITE BLOOD COUNT 13.2 10^3/uL (4.0-10.5)
[2018-01-10 10:29] LABS: APPEARANCE,URINE SLIGHTLY-CLOUDY; BILIRUBIN,URINE NEGATIVE (NEGATIVE); COLOR,URINE YELLOW; GLUCOSE, URINE NEGATIVE (NEGATIVE); KETONES,URINE TRACE mg/dL (NEGATIVE); LEUKOCYTE ESTERASE,URINE NEGATIVE (NEGATIVE); NITRITE,URINE NEGATIVE (NEGATIVE); PROTEIN,URINE NEGATIVE (NEGATIVE); URINE SPECIFIC GRAVITY 1.016; UROBILINOGEN,URINE NEGATIVE mg/dL (<2.0)
[2018-01-10 10:42] LABS: ABSOLUTE LYMPHOCYTES# (MANUAL) 0.5 10^3/uL (0.5-4.7); ABSOLUTE MONOCYTES # (MANUAL) 0.5 10^3/uL (0.1-1.4); ALANINE AMINOTRANSFERASE 23 U/L (9-52); ALKALINE PHOSPHATASE 78 U/L (38-126); ANION GAP 10 (5-19); ASPARTATE AMINO TRANSFERASE 27 U/L (14-36); BAND NEUTROPHILS % (MANUAL) 2 % (3-5); BASOPHILS % (MANUAL) 0 % (0-2); BILIRUBIN,DIRECT 0.5 mg/dL (0.0-0.4); BILIRUBIN,TOTAL 0.8 mg/dL (0.2-1.3); BLOOD UREA NITROGEN 9 mg/dL (7-20); CALCIUM 10.3 mg/dL (8.4-10.2); CARBON DIOXIDE 32 mmol/L (22-30); CHLORIDE 99 mmol/L (98-107); EOSINOPHILS % (MANUAL) 1 % (0-6); GLUCOSE 126 mg/dL (75-110); LYMPHOCYTES % (MANUAL) 4 % (13-45); MONOCYTES % (MANUAL) 4 % (3-13); POTASSIUM 4.5 mmol/L (3.6-5.0); SEGMENTED NEUTROPHILS % (MAN) 89 % (42-78); SODIUM 141.2 mmol/L (137-145); TOTAL CELLS COUNTED 100; TOTAL PROTEIN 8.7 g/dL (6.3-8.2)
[2018-01-10 10:43] LABS: PLATELET COMMENT ADEQUATE; RBC MORPHOLOGY COMMENT NORMO-CYTIC/CHROMIC
[2018-01-10] MEDS ORDERED: DIPHENHYDRAMINE HCL 50 MG CAPSULE PO ONE (11:14)
--- NOTE | 2018-01-10 13:18 | RADIOLOGY REPORT (SQ) ---
EXAM DESCRIPTION: CT ABD/PELVIS WITH IV ORAL COMPLETED DATE/TIME: 01/10/2018 12:52 pm REASON FOR STUDY: obstruction, abdominal pain COMPARISON: [address] abdomen and pelvis exams since 04/28/2017, most recently 10/31/2017 TECHNIQUE: CT scan of the abdomen and pelvis performed using helical scanning technique with dynamic intravenous contrast injection. Patient drank a small amount of oral contrast. Images reviewed with lung, soft tissue, and bone windows. Reconstructed coronal and sagittal MPR images reviewed. Delayed images for evaluation of the urinary system also acquired. All images stored on PACS. All CT scanners at this facility use dose modulation, iterative reconstruction, and/or weight based d osing when appropriate to reduce radiation dose to as low as reasonably achievable (ALARA). [facility]: Dose Right [facility]: CareDose [facility]: Dose Right [facility]: Teradose 4D [facility]: [employer] CONTRAST TYPE AND DOSE: contrast/concentration: Isovue 350.00 mg/ml; Total Contrast Delivered: 58.0 ml; Total Saline Delivered: 65.0 ml Patient has an allergy to IV contrast and was pre-medicated with an IV steroid prep. No acute compli cations post injection of contrast RENAL FUNCTION: Creatinine 0.7 RADIATION DOSE: CT Rad equipment meets quality standard of care and radiation dose reduction techniq ues were employed. CTDIvol: 6.2 - 8.5 mGy. DLP: 752 mGy-cm.. LIMITATIONS: None. FINDINGS: Patient drank a small amount of oral contrast. Oral contrast is seen in its distended sto mach, duodenum, and proximal jejunum down to the periumbilical region. At this point, a tethered loo p of small bowel is present with spiculated material, worrisome for transition point for small-bowel obstruction. These changes are best shown on coronal images 16 through 28. The distal small bowel is decompressed. Moderate stool in the colon. No free intraperitoneal air or fluid. LOWER CHEST: No significant findings. No nodules or infiltrates. LIVER: Normal size. No masses. No dilated ducts. SPLEEN: Normal size. No focal lesions. PANCREAS: No masses. No significant calcifications. No adjacent inflammation or peripancreatic fluid collections. Pancreatic duct not dilated. GALLBLADDER: Surgically absent ADRENAL GLANDS: No significant masses or asymmetry. RIGHT KIDNEY AND URETER: No solid masses. No significant calcifications. No hydronephrosis or hyd roureter. LEFT KIDNEY AND URETER: No solid masses. No significant calcifications. No hydronephrosis or hydr oureter. AORTA AND VESSELS: No aneurysm. No dissection. Renal arteries, SMA, celiac without stenosis. RETROPERITONEUM: No retroperitoneal adenopathy, hemorrhage or masses. BOWEL AND PERITONEAL CAVITY: As above APPENDIX: Surgically absent PELVIS: No mass. No free fluid. Normal bladder. Post hysterectomy ABDOMINAL WALL: Anterior abdominal wall scarring from prior surgeries. No ventral hernia. BONES: No significant or acute findings. OTHER: No other significant finding. IMPRESSION: At least partial small bowel obstruction with dilatation of stomach, duodenum and jejunu m down to the periumbilical region where a tethered loops and transition point are present. TECHNICAL DOCUMENTATION: JOB ID: [id number] Quality ID # [id number]: Final reports with documentation of one or more dose reduction techniques (e.g., Au tomated exposure control, adjustment of the mA and/or kV according to patient size, use of iterative reconstruction technique) 2010 [employer]- All Rights Reserved Reading location - IP/workstation name: [email or web address]
[2018-01-10] MEDS ORDERED: NORMAL SALINE 1000 ML 1,000 ML IV PRN (15:14)
--- NOTE | 2018-01-10 15:17 | PDOC H&P ---
History of Present Illness Admission Date/PCP: 01/10/18 14:00 LIU MASON DO Patient complains of: Abdominal pain, nausea vomiting History of Present Illness: CARMEN HORTON is a 62 year old female Presents to the emergency room via ground rescue complaining of abdominal pain , nausea vomiting, no bowel movement for 24 hours. Symptoms are similar to previous episodes of partial small bowel obstruction. She had vomiting early this morning but none since she arrived in the emergency department. She is received pain medication, and imaging studies including abdominal x-rays, and CT scan of the abdomen and pelvis with IV and oral contrast which showed findings consistent with partial small bowel obstruction. Surgery was consulted. Studies were reviewed , patient examined and recommendations were made for admission. Of note the patient is 2 months status post laparoscopic left inguinal herniorrhaphy [facility] Past Medical History Cardiac Medical History: Reports: Hyperlipidema, Hypertension Pulmonary Medical History: Reports: Pneumonia - left lung scarring Denies: Asthma, Bronchitis, Chronic Obstructive Pulmonary Disease (COPD), Respiratory Failure, Sleep Apnea, Tuberculosis Endocrine Medical History: Denies: Diabetes Mellitus Type 1, Diabetes Mellitus Type 2 Renal/ Medical History: Denies: End Stage Renal Disease Malignancy Medical History: Denies: Breast Cancer, Cervical Cancer, Leukemia, Lung Cancer, Ovarian Cancer GI Medical History: Reports: Gastroesophageal Reflux Disease Denies: Crohn's Disease, Hiatal Hernia Musculoskeltal Medical History: Reports: Arthritis Denies: Fibromyalgia Psychiatric Medical History: Reports: Depression, Post Traumatic Stress Disorder Denies: Bipolar Disorder, Dementia Hematology: Denies: Anemia, Hemophilia, Sickle Cell Disease Infectious Medical History: Denies: HIV Past Surgical History Past Surgical History: Reports: Adenoidectomy, Appendectomy, Hysterectomy, Orthopedic Surgery - carpal tunnel, Other - Sigmoid colectomy, rectopexy Dr. Fowler 2013; abdominal wall hernia surg Denies: Amputation, Section, Cholecystectomy, Colostomy, Coronary Artery Bypass Graft, Gastric Bypass Surgery, Herniorrhaphy, Mastectomy, Pacemaker, Tonsillectomy, Tubal Ligation Social History Smoking Status: Unknown if Ever Smoked Frequency of Alcohol Use: None Hx Recreational Drug Use: No Drugs: None Hx Prescription Drug Abuse: No Family History Family History: CAD, CVA, Malignancy Parental Family History Reviewed: Yes Children Family History Reviewed: Yes Sibling(s) Family History Reviewed.: Yes Medication/Allergy Home Medications: Aspirin [Aspirin EC] 81 mg PO DAILY 09/11/17 Cholecalciferol (Vitamin D3) [Vitamin D3 2000 unit Tablet] 2,000 unit PO DAILY 09/11/17 Eszopiclone [Lunesta] 3 mg PO QHS 09/11/17 Famotidine [Pepcid] 20 mg PO BID 09/11/17 Fluticasone Propionate [Flonase Nasal [place] 50 Mcg/[place] 16 gm] 1 spray NASL DAILYP PRN 09/11/17 Hydrocodone/Acetaminophen [Hydrocodon-Acetaminophen 5-325] 1 each PO BIDP PRN L.acidoph,Paracasei, B.lactis [Probiotic] 1 each PO DAILY 09/11/17 Linaclotide [Linzess] 72 mcg PO DAILY 09/11/17 Meclizine HCl [Antivert 12.5 mg Tablet] 12.5 mg PO BIDP PRN 09/11/17 Nitroglycerin [Nitrostat 0.4 mg (1/150 Gr) Tabs 25/Bottle] 1 tab SL Q5MP PRN Simvastatin [Zocor 80 mg Tablet] 80 mg PO QHS 09/11/17 Acetaminophen [Tylenol Extra Strength 500 mg Tablet] 1 tab PO Q4HP PRN 10/31/17 Cefdinir 300 mg PO Q12 10/31/17 Raloxifene HCl [Evista 60 mg Tablet] 60 mg PO DAILY 10/31/17 Allergies/Adverse Reactions: IVP dye Allergy (Intermediate, Uncoded 04/28/17 16:10) rash Review of Systems Constitutional: PRESENT: as per HPI Eyes: ABSENT: visual disturbances Ears: ABSENT: hearing changes Cardiovascular: ABSENT: chest pain, dyspnea on exertion, edema, orthropnea, palpitations Neurological: ABSENT: abnormal gait, abnormal speech, confusion, dizziness, focal weakness, syncope Psychiatric: ABSENT: anxiety, depression, homidical ideation, suicidal ideation Physical Exam Vital Signs: Temp Pulse Resp BP Pulse Ox 98.3 F 76 15 127/71 H 96 01/10/18 07:41 01/10/18 07:41 01/10/18 11:01 01/10/18 11:01 01/10/18 11:01 General appearance: PRESENT: no acute distress Head exam: PRESENT: normocephalic Eye exam: PRESENT: EOMI Mouth exam: PRESENT: dry mucosa Respiratory exam: PRESENT: clear to auscultation alice Cardiovascular exam: PRESENT: RRR Pulses: PRESENT: normal carotid pulses, normal radial pulses, normal femoral pulses, normal dorsalis pedis pul GI/Abdominal exam: PRESENT: other - Abdomen moderately distended; no peritoneal signs no rigidity but mild deep pelvic tenderness to palpation. Multiple scars consistent with previous surgery. Rectal exam: PRESENT: deferred Extremities exam: PRESENT: full ROM Musculoskeletal exam: PRESENT: full ROM Neurological exam: PRESENT: alert, awake, oriented to person, oriented to place , oriented to time, oriented to situation Psychiatric exam: PRESENT: appropriate affect Results Impressions: Abdomen/Pelvis CT 01/10/18 00:00 IMPRESSION: At least partial small bowel obstruction with dilatation of stomach , duodenum and jejunum down to the periumbilical region where a tethered loops and transition point are present. Acute Abdomen Series 01/10/18 07:35 IMPRESSION: 1. A few air-fluid levels on the upright image. The gas pattern may represent an ileus. Correlation suggested, follow-up examination and/or additional imaging if clinically indicated. Assessment & Plan - Diagnosis (1) Partial small bowel obstruction Is this a current diagnosis for this admission?: Yes Plan: Impression: Partial small bowel obstruction, similar to previous multiple episodes in this 62-year-old white female with chronic pain syndrome. Constipation secondary to chronic narcotic use may be a contributing factor. No evidence of peritonitis on physical examination currently. Recommendations: 1. Admit, IV fluids, n.p.o.; hold narcotics 2. Repeat laboratory profile in a.m. 2. If patient deteriorates clinically, further investigative studies including laparoscopy versus laparotomy may be required. (2) Chronic pain Is this a current diagnosis for this admission?: Yes (3) Constipation Qualifiers: Constipation type: other constipation type Qualified Code(s): K59.09 - Other constipation Is this a current diagnosis for this admission?: Yes (4) Anxiety disorder Is this a current diagnosis for this admission?: Yes (5) Depression Is this a current diagnosis for this admission?: Yes - Time Time Spent: 30 to 50 Minutes Critical Time spent with patient: Less than 15 minutes Medications reviewed and adjusted accordingly: Yes Anticipated discharge: Home - Inpatient Certification Based on my medical assessment, after consideration of the patient's comorbidities, presenting symptoms, or acuity I expect that the services needed warrant INPATIENT care.: Yes I certify that my determination is in accordance with my understanding of Medicare's requirements for reasonable and necessary INPATIENT services [42 CFR 412.3e].: Yes Medical Necessity: Need For IV Fluids
[2018-01-10] MEDS: RINGERS SOLUTION,LACTATED 1,000 ML IV PRN (16:48)
[2018-01-10] MEDS ORDERED: ONDANSETRON HCL INJ/PF 4 MG/2 ML SDV ONE (22:28)
[2018-01-10] MEDS ORDERED: KETOROLAC TROMETHAMINE INJ/PF 30 MG/1 ML SDV ONE (22:29)
[2018-01-10] MEDS: KETOROLAC TROMETHAMINE INJ/PF 30 MG/1 ML SDV IV PRN (22:34)
[2018-01-10] MEDS: ONDANSETRON HCL INJ/PF 4 MG/2 ML SDV IV PRN (22:36)
[2018-01-11] MEDS: RINGERS SOLUTION,LACTATED 1,000 ML IV PRN ×2 (00:41→06:58)
[2018-01-11] MEDS: ONDANSETRON HCL INJ/PF 4 MG/2 ML SDV IV PRN ×3 (04:32→22:37)
[2018-01-11] MEDS: KETOROLAC TROMETHAMINE INJ/PF 30 MG/1 ML SDV IV PRN ×2 (04:36→10:38)
[2018-01-11 07:14] LABS: ABSOLUTE EOSINOPHILS # (AUTO) 0.1 10^3/uL (0.0-0.6); ABSOLUTE MONOCYTES (AUTO) 0.6 10^3/uL (0.1-1.4); ABSOLUTE NEUT (AUTO) 5.9 10^3/uL (1.7-8.2); BASOPHILS % (AUTO) 0.4 % (0-2); EOSINOPHILS % (AUTO) 1.4 % (0-6); HEMATOCRIT 39.2 % (36.0-47.0); HEMOGLOBIN 13.3 g/dL (12.0-15.5); LYMPHOCYTES % (AUTO) 13.2 % (13-45); MEAN CORPUSCULAR HEMOGLOBIN 29.9 pg (27.0-33.4); MEAN CORPUSCULAR VOLUME 88 fl (80-97); MONOCYTES % (AUTO) 8.2 % (3-13); PLATELET COUNT 219 10^3/uL (150-450); RED BLOOD COUNT 4.46 10^6/uL (3.72-5.28); RED CELL DISTRIBUTION WIDTH 13.3 % (11.5-14.0); SEGMENTED NEUTROPHILS % (AUTO) 76.8 % (42-78); TOTAL CELLS COUNTED % (AUTO) 100 %; WHITE BLOOD COUNT 7.7 10^3/uL (4.0-10.5)
[2018-01-11] MEDS ORDERED: KETOROLAC TROMETHAMINE INJ/PF 30 MG/1 ML SDV IV PRN (10:03)
--- NOTE | 2018-01-11 10:03 | PDOC PROGRESS REPORT ---
Subjective Progress Note for:: 01/11/18 Subjective:: Patient c/o abdominal pain and no flatus x 1 week. Last bowel movement 2 days ago, liquid. Moderate nausea. Reason For Visit: PARTIAL SMALL BOWEL OBSTRUCTION,PANCREATITIS Physical Exam Vital Signs: Temp Pulse Resp BP Pulse Ox 98.6 F 72 16 126/64 H 99 01/11/18 07:41 01/11/18 07:41 01/11/18 07:41 01/11/18 07:41 01/11/18 07:41 Intake & Output 01/10/18 01/11/18 01/12/18 06:59 06:59 06:59 Intake Total 1942 Output Total 300 Balance 1642 Weight 55 kg General appearance: PRESENT: mild distress Respiratory exam: PRESENT: clear to auscultation alice Cardiovascular exam: PRESENT: RRR GI/Abdominal exam: PRESENT: hypoactive bowel sounds, soft, tenderness - diffusely, other - no obvious peritonitis Results Laboratory Results: 01/11/18 06:45 01/11/18 01/11/18 06:45 06:45 WBC 7.7 RBC 4.46 Hgb 13.3 Hct 39.2 MCV 88 MCH 29.9 MCHC 34.0 RDW 13.3 Plt Count 219 Seg Neutrophils % 76.8 Lymphocytes % 13.2 Monocytes % 8.2 Eosinophils % 1.4 Basophils % 0.4 Absolute Neutrophils 5.9 Absolute Lymphocytes 1.0 Absolute Monocytes 0.6 Absolute Eosinophils 0.1 Absolute Basophils 0.0 Lipase 56.4 Impressions: Abdomen/Pelvis CT 01/10/18 00:00 IMPRESSION: At least partial small bowel obstruction with dilatation of stomach , duodenum and jejunum down to the periumbilical region where a tethered loops and transition point are present. Acute Abdomen Series 01/10/18 07:35 IMPRESSION: 1. A few air-fluid levels on the upright image. The gas pattern may represent an ileus. Correlation suggested, follow-up examination and/or additional imaging if clinically indicated. Assessment & Plan - Diagnosis (1) Partial small bowel obstruction Is this a current diagnosis for this admission?: Yes - Plan Summary Plan Summary: A/ S/p partial colectomy and cholecystectomy in 2017 Patient c/o abdominal pain and nausea No flatus CT scan shows partial mechanical SBO P/ Insert NGT 3 view Xray of the abdomen today and tomorrow We will try to manage the partial SBO conservatively at this point Continue NPO and IVF
[2018-01-11] MEDS ORDERED: PHENOL/SODIUM PHENOLATE 100 SPRAY/177 ML BOTTLE PO PRN (11:09)
--- NOTE | 2018-01-11 11:31 | RADIOLOGY REPORT (SQ) ---
EXAM DESCRIPTION: KUB/ABDOMEN (SINGLE VIEW) COMPLETED DATE/TIME: 01/11/2018 11:19 am REASON FOR STUDY: placement NGT COMPARISON: 01/10/2018 NUMBER OF VIEWS: One view. TECHNIQUE: Supine radiographic image centered over diaphragm acquired. LIMITATIONS: None. FINDINGS: Nasogastric tube tip overlies the stomach. Mildly dilated loops of small bowel in the upp er abdomen. No gastric distention. IMPRESSION: Nasogastric tube in the stomach. Reading location - IP/workstation name: [email or web address]
--- NOTE | 2018-01-11 12:28 | RADIOLOGY REPORT (SQ) ---
EXAM DESCRIPTION: KUB/ABDOMEN (SINGLE VIEW) COMPLETED DATE/TIME: 01/11/2018 12:12 pm REASON FOR STUDY: f/u SBO COMPARISON: Earlier the same date. NUMBER OF VIEWS: One view. TECHNIQUE: Supine radiographic image of the abdomen acquired. LIMITATIONS: None. FINDINGS: Nasogastric tube position not significantly changed. Mildly dilated loops of small bowel with gas fluid levels in the upper abdomen. IMPRESSION: Ileus or partial small bowel obstruction. No significant change. Reading location - IP/workstation name: [email or web address]
[2018-01-11] MEDS: ENOXAPARIN SODIUM INJ 40 MG/0.4 ML DISP.SYRIN SUBCUT SCH (13:29)
[2018-01-11] MEDS: NORMAL SALINE 1000 ML 1,000 ML IV PRN ×2 (14:34→22:46)
--- NOTE | 2018-01-11 15:36 | RADIOLOGY REPORT (SQ) ---
EXAM DESCRIPTION: ABDOMEN 2 VIEWS COMPLETED DATE/TIME: 01/11/2018 3:27 pm REASON FOR STUDY: f/u SBO COMPARISON: 01/10/2018 NUMBER OF VIEWS: Two views. TECHNIQUE: Supine and erect/decubitus radiographic images of the abdomen acquired. LIMITATIONS: None. FINDINGS: FREE AIR: None. No abnormal gas collections. LUNG BASES: Clear. BOWEL GAS PATTERN: Dilated air-filled loops of small bowel with air-fluid levels on the upright views . Colon is nondistended. CALCIFICATIONS: No suspicious calcifications. SOFT TISSUES: No gross mass or suggestion of organomegaly. HARDWARE: An NG tube is present in the stomach. BONES: No acute fracture. No worrisome bone lesions. OTHER: No other significant finding. IMPRESSION: Small bowel obstruction. TECHNICAL DOCUMENTATION: JOB ID: [id number] [employer]- All Rights Reserved Reading location - IP/workstation name: [email or web address]
[2018-01-11] MEDS: MORPHINE SULFATE 10 MG/ML INJ IV PRN ×2 (16:17→22:39)
[2018-01-11] MEDS ORDERED: MAGNESIUM CITRATE 296 ML BOTTLE NG ONE (18:00)
[2018-01-12] MEDS: NORMAL SALINE 1000 ML 1,000 ML IV PRN ×2 (06:11→15:15)
[2018-01-12] MEDS: MORPHINE SULFATE 10 MG/ML INJ IV PRN (06:31)
[2018-01-12 06:57] LABS: ABSOLUTE EOSINOPHILS # (AUTO) 0.1 10^3/uL (0.0-0.6); ABSOLUTE LYMPHOCYTES (AUTO) 1.1 10^3/uL (0.5-4.7); ABSOLUTE MONOCYTES (AUTO) 0.4 10^3/uL (0.1-1.4); ABSOLUTE NEUT (AUTO) 2.5 10^3/uL (1.7-8.2); BASOPHILS % (AUTO) 0.5 % (0-2); EOSINOPHILS % (AUTO) 3.5 % (0-6); HEMATOCRIT 38.6 % (36.0-47.0); LYMPHOCYTES % (AUTO) 25.9 % (13-45); MEAN CORPUSCULAR HEMOGLOBIN 29.8 pg (27.0-33.4); MEAN CORPUSCULAR HGB CONC 33.6 g/dL (32.0-36.0); MEAN CORPUSCULAR VOLUME 89 fl (80-97); MONOCYTES % (AUTO) 10.7 % (3-13); PLATELET COUNT 229 10^3/uL (150-450); RED BLOOD COUNT 4.35 10^6/uL (3.72-5.28); RED CELL DISTRIBUTION WIDTH 13.2 % (11.5-14.0); SEGMENTED NEUTROPHILS % (AUTO) 59.4 % (42-78); TOTAL CELLS COUNTED % (AUTO) 100 %; WHITE BLOOD COUNT 4.2 10^3/uL (4.0-10.5)
[2018-01-12 07:05] LABS: ANION GAP 10 (5-19); BLOOD UREA NITROGEN 5 mg/dL (7-20); CALCIUM 8.8 mg/dL (8.4-10.2); CARBON DIOXIDE 28 mmol/L (22-30); CHLORIDE 102 mmol/L (98-107); GLUCOSE 63 mg/dL (75-110); POTASSIUM 4.2 mmol/L (3.6-5.0); SODIUM 139.5 mmol/L (137-145)
--- NOTE | 2018-01-12 08:15 | RADIOLOGY REPORT (SQ) ---
EXAM DESCRIPTION: ABDOMEN 2 VIEWS COMPLETED DATE/TIME: 01/12/2018 7:59 am REASON FOR STUDY: r/o obstruction COMPARISON: 01/11/2018 NUMBER OF VIEWS: Two views. TECHNIQUE: Supine and erect/decubitus radiographic images of the abdomen acquired. LIMITATIONS: None. FINDINGS: FREE AIR: None. No abnormal gas collections. LUNG BASES: Clear. BOWEL GAS PATTERN: There has been interval resolution of the previously described small bowel obstruc tion. The previously described dilated air-filled loops of small bowel and air-fluid levels are no l onger identified. Air is identified in the distribution of the colon CALCIFICATIONS: No suspicious calcifications. SOFT TISSUES: No gross mass or suggestion of organomegaly. HARDWARE: NG tube is seen with its tip in the left upper quadrant presumably in the stomach. Surgica l clips are again identified in the right upper quadrant. BONES: No acute fracture. No worrisome bone lesions. OTHER: No other significant finding. IMPRESSION: Interval resolution of the previously described small bowel obstruction. Other findings as noted above TECHNICAL DOCUMENTATION: JOB ID: [id number] [employer]- All Rights Reserved Reading location - IP/workstation name: [email or web address]
[2018-01-12] MEDS: ENOXAPARIN SODIUM INJ 40 MG/0.4 ML DISP.SYRIN SUBCUT SCH (09:02)
--- NOTE | 2018-01-12 09:44 | PDOC PROGRESS REPORT ---
Subjective Progress Note for:: 01/12/18 Subjective:: patient reports multiple (ten) bowel movements with flatus overnight after Mg Citrate. Still c/o mild abdominal discomfort Reason For Visit: PARTIAL SBO,PANCREATITIS Physical Exam Vital Signs: Temp Pulse Resp BP Pulse Ox 98.0 F 66 16 118/53 L 94 01/12/18 09:29 01/12/18 09:29 01/12/18 09:29 01/12/18 09:29 01/12/18 09:29 Intake & Output 01/11/18 01/12/18 01/13/18 06:59 06:59 06:59 Intake Total 2227 Output Total 1400 Balance 827 Weight 54.8 kg General appearance: PRESENT: no acute distress Respiratory exam: PRESENT: clear to auscultation alice Cardiovascular exam: PRESENT: RRR GI/Abdominal exam: PRESENT: hyperactive bowel sounds, soft, tenderness - slight , diffuse Results Laboratory Results: 01/12/18 06:14 01/12/18 06:14 01/12/18 01/12/18 06:14 06:14 WBC 4.2 RBC 4.35 Hgb 13.0 Hct 38.6 MCV 89 MCH 29.8 MCHC 33.6 RDW 13.2 Plt Count 229 Seg Neutrophils % 59.4 Lymphocytes % 25.9 Monocytes % 10.7 Eosinophils % 3.5 Basophils % 0.5 Absolute Neutrophils 2.5 Absolute Lymphocytes 1.1 Absolute Monocytes 0.4 Absolute Eosinophils 0.1 Absolute Basophils 0.0 Sodium 139.5 Potassium 4.2 Chloride 102 Carbon Dioxide 28 Anion Gap 10 BUN 5 L Creatinine 0.55 Est GFR ( Amer) > 60 Est GFR (Non-Af Amer) > 60 Glucose 63 L Calcium 8.8 Impressions: Abdomen/Pelvis CT 01/10/18 00:00 IMPRESSION: At least partial small bowel obstruction with dilatation of stomach , duodenum and jejunum down to the periumbilical region where a tethered loops and transition point are present. Acute Abdomen Series 01/10/18 07:35 IMPRESSION: 1. A few air-fluid levels on the upright image. The gas pattern may represent an ileus. Correlation suggested, follow-up examination and/or additional imaging if clinically indicated. KUB X-Ray 01/11/18 00:00 IMPRESSION: Ileus or partial small bowel obstruction. No significant change. Abdomen X-Ray 01/12/18 06:00 IMPRESSION: Interval resolution of the previously described small bowel obstruction. Other findings as noted above Assessment & Plan - Diagnosis (1) Partial small bowel obstruction Is this a current diagnosis for this admission?: Yes - Plan Summary Plan Summary: A/ VSS, AF NGT output 150 mL overnight Multiple bowel movements with flatus overnight Abdomen soft Obstructive series shows resolved partial mechanical SBO P/ Clamp NGT x 4 hrs: if residual < 100 mL, remove NGT and start patient on clear liquid diet If patient continues to improve, she can be discharged to home as early as tomorrow on a full liquid diet and she can advance the diet on her own Patient counseled to avoid large amount of vegetable in her diet, as this can cause a partial mechanical obstruction in the future.
[2018-01-12] MEDS: ACETAMINOPHEN 325 MG TABLET PO PRN (11:59)
[2018-01-12] MEDS: ONDANSETRON HCL INJ/PF 4 MG/2 ML SDV IV PRN (16:06)
[2018-01-13] MEDS: NORMAL SALINE 1000 ML 1,000 ML IV PRN ×2 (03:44→17:14)
[2018-01-13] MEDS: ONDANSETRON HCL INJ/PF 4 MG/2 ML SDV IV PRN (03:48)
[2018-01-13 05:47] LABS: ABSOLUTE EOSINOPHILS # (AUTO) 0.1 10^3/uL (0.0-0.6); ABSOLUTE MONOCYTES (AUTO) 0.3 10^3/uL (0.1-1.4); ABSOLUTE NEUT (AUTO) 1.6 10^3/uL (1.7-8.2); BASOPHILS % (AUTO) 0.7 % (0-2); EOSINOPHILS % (AUTO) 4.3 % (0-6); HEMATOCRIT 33.5 % (36.0-47.0); HEMOGLOBIN 11.5 g/dL (12.0-15.5); LYMPHOCYTES % (AUTO) 31.9 % (13-45); MEAN CORPUSCULAR HEMOGLOBIN 30.1 pg (27.0-33.4); MEAN CORPUSCULAR HGB CONC 34.2 g/dL (32.0-36.0); MEAN CORPUSCULAR VOLUME 88 fl (80-97); MONOCYTES % (AUTO) 10.1 % (3-13); PLATELET COUNT 184 10^3/uL (150-450); RED BLOOD COUNT 3.81 10^6/uL (3.72-5.28); RED CELL DISTRIBUTION WIDTH 13.2 % (11.5-14.0); TOTAL CELLS COUNTED % (AUTO) 100 %; WHITE BLOOD COUNT 3.1 10^3/uL (4.0-10.5)
[2018-01-13 06:01] LABS: ANION GAP 9 (5-19); BLOOD UREA NITROGEN 5 mg/dL (7-20); CALCIUM 8.6 mg/dL (8.4-10.2); CARBON DIOXIDE 25 mmol/L (22-30); CHLORIDE 105 mmol/L (98-107); GLUCOSE 66 mg/dL (75-110); POTASSIUM 4.1 mmol/L (3.6-5.0); SODIUM 139.2 mmol/L (137-145)
[2018-01-13] MEDS: ENOXAPARIN SODIUM INJ 40 MG/0.4 ML DISP.SYRIN SUBCUT SCH (09:42)
--- NOTE | 2018-01-13 11:08 | PDOC PROGRESS REPORT ---
Subjective Progress Note for:: 01/13/18 Subjective:: Complain of right-sided abdominal pain. No nausea or vomiting. Tolerating clears well. Loose bowel movements but no blood per rectum. Patient notes that she has been having right-sided abdominal pain for quite some time but it has worsened in the last couple days. Reason For Visit: PARTIAL SBO,PANCREATITIS Physical Exam Vital Signs: Temp Pulse Resp BP Pulse Ox 97.9 F 58 L 16 135/58 H 97 01/13/18 03:51 01/13/18 03:51 01/13/18 03:51 01/13/18 03:51 01/13/18 03:51 Intake & Output 01/12/18 01/13/18 01/14/18 06:59 06:59 06:59 Intake Total 2227 2590 Output Total 1400 Balance 827 2590 Weight 54.8 kg General appearance: PRESENT: no acute distress, cooperative Respiratory exam: PRESENT: clear to auscultation alice Cardiovascular exam: PRESENT: RRR GI/Abdominal exam: PRESENT: other - Soft, nondistended, diffuse tenderness at her right abdomen without peritoneal signs. Results Laboratory Results: 01/13/18 04:36 01/13/18 04:36 01/13/18 01/13/18 04:36 04:36 WBC 3.1 L RBC 3.81 Hgb 11.5 L Hct 33.5 L MCV 88 MCH 30.1 MCHC 34.2 RDW 13.2 Plt Count 184 Seg Neutrophils % 53.0 Lymphocytes % 31.9 Monocytes % 10.1 Eosinophils % 4.3 Basophils % 0.7 Absolute Neutrophils 1.6 L Absolute Lymphocytes 1.0 Absolute Monocytes 0.3 Absolute Eosinophils 0.1 Absolute Basophils 0.0 Sodium 139.2 Potassium 4.1 Chloride 105 Carbon Dioxide 25 Anion Gap 9 BUN 5 L Creatinine 0.53 Est GFR ( Amer) > 60 Est GFR (Non-Af Amer) > 60 Glucose 66 L Calcium 8.6 Impressions: Abdomen/Pelvis CT 01/10/18 00:00 IMPRESSION: At least partial small bowel obstruction with dilatation of stomach , duodenum and jejunum down to the periumbilical region where a tethered loops and transition point are present. Acute Abdomen Series 01/10/18 07:35 IMPRESSION: 1. A few air-fluid levels on the upright image. The gas pattern may represent an ileus. Correlation suggested, follow-up examination and/or additional imaging if clinically indicated. KUB X-Ray 01/11/18 00:00 IMPRESSION: Ileus or partial small bowel obstruction. No significant change. Abdomen X-Ray 01/12/18 06:00 IMPRESSION: Interval resolution of the previously described small bowel obstruction. Other findings as noted above Assessment & Plan - Diagnosis (1) Abdominal pain Is this a current diagnosis for this admission?: Yes Plan: Right-sided abdominal pain of unclear etiology. Patient does have tenderness throughout the right abdomen. Will repeat her lipase. Will keep her on clear liquids for right now. Will obtain a abdominal pelvic CT scan with oral contrast only since she has a contrast allergy and she has also received IV contrast during this hospitalization. Will check a urine analysis since she has some dysuria as well. (2) Pancreatitis Qualifiers: Chronicity: acute Pancreatitis type: other Acute pancreatitis complication: unspecified Qualified Code(s): K85.80 - Other acute pancreatitis without necrosis or infection Is this a current diagnosis for this admission?: Yes Plan: Will repeat lipase in light of her abdominal pain. (3) Partial small bowel obstruction Is this a current diagnosis for this admission?: Yes Plan: Bowel obstruction appears to have resolved.
--- NOTE | 2018-01-13 14:52 | RADIOLOGY REPORT (SQ) ---
EXAM DESCRIPTION: CT ABD/PELVIS ORAL ONLY COMPLETED DATE/TIME: 01/13/2018 2:31 pm REASON FOR STUDY: right sided abdominal pain COMPARISON: 01/10/2018 TECHNIQUE: CT scan of the abdomen and pelvis performed with oral contrast and no intravenous contras t. Images reviewed with lung, soft tissue, and bone windows. Reconstructed coronal and sagittal MPR i mages reviewed. All images stored on PACS. All CT scanners at this facility use dose modulation, iterative reconstruction, and/or weight based d osing when appropriate to reduce radiation dose to as low as reasonably achievable (ALARA). [facility]: Dose Right [facility]: CareDose [facility]: Dose Right [facility]: Teradose 4D [facility]: [employer] RADIATION DOSE: CT Rad equipment meets quality standard of care and radiation dose reduction techniq ues were employed. CTDIvol: 4.9 mGy. DLP: 236 mGy-cm. mGy. LIMITATIONS: None. FINDINGS: LOWER CHEST: Tiny right pleural effusion is identified. NON-CONTRASTED LIVER, SPLEEN, ADRENALS: Evaluation limited by lack of IV contrast. No identified sign ificant masses. PANCREAS: No masses. No peripancreatic inflammatory changes. GALLBLADDER: Status post cholecystectomy. RIGHT KIDNEY AND URETER: No suspicious masses. Assessment limited by lack of IV contrast. No signif icant calcifications. No hydronephrosis or hydroureter. LEFT KIDNEY AND URETER: No suspicious masses. Assessment limited by lack of IV contrast. No signifi cant calcifications. No hydronephrosis or hydroureter. AORTA AND RETROPERITONEUM: No aneurysm. No retroperitoneal masses or adenopathy. BOWEL AND PERITONEAL CAVITY: The previously described distention of the stomach duodenum and proximal jejunum appear improved. Oral contrast is identified to the level of the colon. There is thickenin g of the christiansen of a couple segments of proximal small bowel and the possibility edematous or inflamma tory changes should be considered. The possibility of an enteritis should be considered. Normal jarvis iber distal small bowel loops are again identified. APPENDIX: Status post appendectomy PELVIS, BLADDER, AND ABDOMINAL WALL: No abnormal pelvic masses. No abdominal wall hernias. Bladder un remarkable. BONES: No significant findings. OTHER: No other significant finding. IMPRESSION: The previously described distention of the stomach, duodenum, and proximal jejunum appea r improved. Oral contrast is identified to the level of the stomach. There is some thickening of th e christiansen of a couple segments of proximal small bowel which could represent edematous or inflammatory changes. The possibility of an enteritis should be considered. Normal caliber distal small bowel lo ops are identified. Other findings as noted above TECHNICAL DOCUMENTATION: JOB ID: [id number] Quality ID # [id number]: Final reports with documentation of one or more dose reduction techniques (e.g., Au tomated exposure control, adjustment of the mA and/or kV according to patient size, use of iterative reconstruction technique) 2010 [employer]- All Rights Reserved Reading location - IP/workstation name: [email or web address]
[2018-01-13 15:42] LABS: APPEARANCE,URINE SLIGHTLY-CLOUDY; BILIRUBIN,URINE NEGATIVE (NEGATIVE); COLOR,URINE COLORLESS; GLUCOSE, URINE NEGATIVE (NEGATIVE); KETONES,URINE TRACE mg/dL (NEGATIVE); LEUKOCYTE ESTERASE,URINE NEGATIVE (NEGATIVE); NITRITE,URINE NEGATIVE (NEGATIVE); PROTEIN,URINE NEGATIVE (NEGATIVE); URINE SPECIFIC GRAVITY 1.006; UROBILINOGEN,URINE NEGATIVE mg/dL (<2.0)
--- NOTE | 2018-01-13 16:48 | PDOC PROGRESS REPORT ---
Subjective Progress Note for:: 01/13/18 Subjective:: Has had multiple loose bowel movements today. But her abdominal pain has decreased. Reason For Visit: PARTIAL SBO,PANCREATITIS Physical Exam Vital Signs: Temp Pulse Resp BP Pulse Ox 97.9 F 58 L 16 135/58 H 97 01/13/18 03:51 01/13/18 03:51 01/13/18 03:51 01/13/18 03:51 01/13/18 03:51 Intake & Output 01/12/18 01/13/18 01/14/18 06:59 06:59 06:59 Intake Total 2227 2590 Output Total 1400 Balance 827 2590 Weight 54.8 kg General appearance: PRESENT: no acute distress, cooperative GI/Abdominal exam: PRESENT: other - Soft, nondistended, tenderness to palpation at her right abdomen but less so than earlier today. No peritoneal signs. Results Laboratory Results: 01/13/18 04:36 01/13/18 04:36 01/13/18 01/13/18 01/13/18 04:36 04:36 04:36 WBC 3.1 L RBC 3.81 Hgb 11.5 L Hct 33.5 L MCV 88 MCH 30.1 MCHC 34.2 RDW 13.2 Plt Count 184 Seg Neutrophils % 53.0 Lymphocytes % 31.9 Monocytes % 10.1 Eosinophils % 4.3 Basophils % 0.7 Absolute Neutrophils 1.6 L Absolute Lymphocytes 1.0 Absolute Monocytes 0.3 Absolute Eosinophils 0.1 Absolute Basophils 0.0 Sodium 139.2 Potassium 4.1 Chloride 105 Carbon Dioxide 25 Anion Gap 9 BUN 5 L Creatinine 0.53 Est GFR ( Amer) > 60 Est GFR (Non-Af Amer) > 60 Glucose 66 L Calcium 8.6 Lipase 48.7 Urine Color Urine Appearance Urine pH Ur Specific [place] Urine Protein Urine Glucose (UA) Urine Ketones Urine Blood Urine Nitrite Ur Leukocyte Esterase Urine WBC (Auto) Urine RBC (Auto) 01/13/18 15:20 WBC RBC Hgb Hct MCV MCH MCHC RDW Plt Count Seg Neutrophils % Lymphocytes % Monocytes % Eosinophils % Basophils % Absolute Neutrophils Absolute Lymphocytes Absolute Monocytes Absolute Eosinophils Absolute Basophils Sodium Potassium Chloride Carbon Dioxide Anion Gap BUN Creatinine Est GFR ( Amer) Est GFR (Non-Af Amer) Glucose Calcium Lipase Urine Color COLORLESS Urine Appearance SLIGHTLY-CLOUDY Urine pH 7.0 Ur Specific [place] 1.006 Urine Protein NEGATIVE Urine Glucose (UA) NEGATIVE Urine Ketones TRACE H Urine Blood NEGATIVE Urine Nitrite NEGATIVE Ur Leukocyte Esterase NEGATIVE Urine WBC (Auto) 1 Urine RBC (Auto) 2 Impressions: Acute Abdomen Series 01/10/18 07:35 IMPRESSION: 1. A few air-fluid levels on the upright image. The gas pattern may represent an ileus. Correlation suggested, follow-up examination and/or additional imaging if clinically indicated. KUB X-Ray 01/11/18 00:00 IMPRESSION: Ileus or partial small bowel obstruction. No significant change. Abdomen X-Ray 01/12/18 06:00 IMPRESSION: Interval resolution of the previously described small bowel obstruction. Other findings as noted above Abdomen/Pelvis CT 01/13/18 00:00 IMPRESSION: The previously described distention of the stomach, duodenum, and proximal jejunum appear improved. Oral contrast is identified to the level of the stomach. There is some thickening of the christiansen of a couple segments of proximal small bowel which could represent edematous or inflammatory changes. The possibility of an enteritis should be considered. Normal caliber distal small bowel loops are identified. Other findings as noted above Assessment & Plan - Diagnosis (1) Abdominal pain Is this a current diagnosis for this admission?: Yes (2) Pancreatitis Qualifiers: Chronicity: acute Pancreatitis type: other Acute pancreatitis complication: unspecified Qualified Code(s): K85.80 - Other acute pancreatitis without necrosis or infection Is this a current diagnosis for this admission?: Yes (3) Partial small bowel obstruction Is this a current diagnosis for this admission?: Yes (4) Enteritis Is this a current diagnosis for this admission?: Yes Plan: CT scan demonstrates no evidence of bowel obstruction however it does demonstrate small bowel wall thickening. Suspect that she has a enteritis of unclear etiology. Will obtain stool studies. Will place her on Levaquin and Flagyl. We will not advance her diet until things get better. I have reviewed her CT scan with the radiologist including her prior CT that had been done with IV contrast and there is mesenteric vascular obstruction seen on prior CT at beginning of her admission. With her pain improving I do not think she has ischemic bowel. Will place her on IV fluids and observe her.
[2018-01-13] MEDS: METRONIDAZOLE 500 MG TABLET PO SCH ×2 (18:25→23:22)
[2018-01-13] MEDS: ACETAMINOPHEN 325 MG TABLET PO PRN (23:27)
[2018-01-14] MEDS: NORMAL SALINE 1000 ML 1,000 ML IV PRN ×2 (01:48→10:20)
[2018-01-14] MEDS: PROMETHAZINE HCL 25 MG TABLET PO PRN ×3 (04:26→17:10)
[2018-01-14] MEDS: METRONIDAZOLE 500 MG TABLET PO SCH ×2 (05:13→12:10)
[2018-01-14 07:09] LABS: ABSOLUTE EOSINOPHILS # (AUTO) 0.1 10^3/uL (0.0-0.6); ABSOLUTE MONOCYTES (AUTO) 0.3 10^3/uL (0.1-1.4); ABSOLUTE NEUT (AUTO) 1.7 10^3/uL (1.7-8.2); BASOPHILS % (AUTO) 0.6 % (0-2); EOSINOPHILS % (AUTO) 2.7 % (0-6); HEMATOCRIT 34.4 % (36.0-47.0); HEMOGLOBIN 11.8 g/dL (12.0-15.5); LYMPHOCYTES % (AUTO) 32.2 % (13-45); MEAN CORPUSCULAR HEMOGLOBIN 30.1 pg (27.0-33.4); MEAN CORPUSCULAR HGB CONC 34.3 g/dL (32.0-36.0); MEAN CORPUSCULAR VOLUME 88 fl (80-97); MONOCYTES % (AUTO) 10.6 % (3-13); PLATELET COUNT 193 10^3/uL (150-450); RED BLOOD COUNT 3.93 10^6/uL (3.72-5.28); RED CELL DISTRIBUTION WIDTH 13.2 % (11.5-14.0); SEGMENTED NEUTROPHILS % (AUTO) 53.9 % (42-78); TOTAL CELLS COUNTED % (AUTO) 100 %; WHITE BLOOD COUNT 3.1 10^3/uL (4.0-10.5)
[2018-01-14 07:31] LABS: CALCIUM 8.9 mg/dL (8.4-10.2); CARBON DIOXIDE 30 mmol/L (22-30); CHLORIDE 106 mmol/L (98-107); GLUCOSE 95 mg/dL (75-110); POTASSIUM 3.9 mmol/L (3.6-5.0)
[2018-01-14 07:34] LABS: BLOOD UREA NITROGEN < 2 mg/dL (7-20)
[2018-01-14 07:37] LABS: SODIUM 139.4 mmol/L (137-145)
[2018-01-14 07:42] LABS: ANION GAP 3 (5-19)
[2018-01-14] MEDS ORDERED: LEVOFLOXACIN 500 MG TABLET PO SCH (10:00)
[2018-01-14] MEDS ORDERED: FAMOTIDINE INJ/PF 20 MG/2 ML SDV IV SCH (10:00)
[2018-01-14] MEDS: ENOXAPARIN SODIUM INJ 40 MG/0.4 ML DISP.SYRIN SUBCUT SCH (10:20)
[2018-01-14 12:48] VITALS: BP 135/67
--- NOTE | 2018-01-14 14:48 | PDOC PROGRESS REPORT ---
Subjective Progress Note for:: 01/14/18 Subjective:: Patient states she has some epigastric discomfort. Concerned about her antibiotics, what her diagnosis is and what happens in the future. Reason For Visit: PARTIAL SBO,PANCREATITIS Physical Exam Vital Signs: Temp Pulse Resp BP Pulse Ox 98.9 F 63 18 135/67 H 99 01/14/18 12:00 01/14/18 12:00 01/14/18 12:00 01/14/18 12:00 01/14/18 12:00 Intake & Output 01/13/18 01/14/18 01/15/18 06:59 06:59 06:59 Intake Total 2590 2000 1000 Balance 2590 2000 1000 Weight 56.3 kg General appearance: PRESENT: no acute distress GI/Abdominal exam: PRESENT: other - Soft, less distended compared to 4 days ago. No peritoneal signs no rigidity. Results Laboratory Results: 01/14/18 06:44 01/14/18 06:44 01/13/18 01/13/18 01/14/18 15:20 18:35 06:44 WBC 3.1 L RBC 3.93 Hgb 11.8 L Hct 34.4 L MCV 88 MCH 30.1 MCHC 34.3 RDW 13.2 Plt Count 193 Seg Neutrophils % 53.9 Lymphocytes % 32.2 Monocytes % 10.6 Eosinophils % 2.7 Basophils % 0.6 Absolute Neutrophils 1.7 Absolute Lymphocytes 1.0 Absolute Monocytes 0.3 Absolute Eosinophils 0.1 Absolute Basophils 0.0 Sodium Potassium Chloride Carbon Dioxide Anion Gap BUN Creatinine Est GFR ( Amer) Est GFR (Non-Af Amer) Glucose Calcium Urine Color COLORLESS Urine Appearance SLIGHTLY-CLOUDY Urine pH 7.0 Ur Specific [place] 1.006 Urine Protein NEGATIVE Urine Glucose (UA) NEGATIVE Urine Ketones TRACE H Urine Blood NEGATIVE Urine Nitrite NEGATIVE Ur Leukocyte Esterase NEGATIVE Urine WBC (Auto) 1 Urine RBC (Auto) 2 Stool for White Cells NO WBCs SEEN 01/14/18 06:44 WBC RBC Hgb Hct MCV MCH MCHC RDW Plt Count Seg Neutrophils % Lymphocytes % Monocytes % Eosinophils % Basophils % Absolute Neutrophils Absolute Lymphocytes Absolute Monocytes Absolute Eosinophils Absolute Basophils Sodium 139.4 Potassium 3.9 Chloride 106 Carbon Dioxide 30 Anion Gap 3 L BUN < 2 L Creatinine 0.48 L Est GFR ( Amer) > 60 Est GFR (Non-Af Amer) > 60 Glucose 95 Calcium 8.9 Urine Color Urine Appearance Urine pH Ur Specific [place] Urine Protein Urine Glucose (UA) Urine Ketones Urine Blood Urine Nitrite Ur Leukocyte Esterase Urine WBC (Auto) Urine RBC (Auto) Stool for White Cells Impressions: Acute Abdomen Series 01/10/18 07:35 IMPRESSION: 1. A few air-fluid levels on the upright image. The gas pattern may represent an ileus. Correlation suggested, follow-up examination and/or additional imaging if clinically indicated. KUB X-Ray 01/11/18 00:00 IMPRESSION: Ileus or partial small bowel obstruction. No significant change. Abdomen X-Ray 01/12/18 06:00 IMPRESSION: Interval resolution of the previously described small bowel obstruction. Other findings as noted above Abdomen/Pelvis CT 01/13/18 00:00 IMPRESSION: The previously described distention of the stomach, duodenum, and proximal jejunum appear improved. Oral contrast is identified to the level of the stomach. There is some thickening of the christiansen of a couple segments of proximal small bowel which could represent edematous or inflammatory changes. The possibility of an enteritis should be considered. Normal caliber distal small bowel loops are identified. Other findings as noted above Assessment & Plan - Diagnosis (1) Partial small bowel obstruction Is this a current diagnosis for this admission?: Yes Plan: Impression: Clinically improved small bowel obstruction; possible small bowel enteritis; clinically improved overall but not all symptoms resolved. No evidence of a mechanical small bowel obstruction or surgical problem Commendations: 1. Discontinue IV and oral antibiotics 2. Advance diet to solid foods. 3. Anticipate discharge home soon (2) Chronic pain Is this a current diagnosis for this admission?: Yes (3) Constipation Qualifiers: Constipation type: other constipation type Qualified Code(s): K59.09 - Other constipation Is this a current diagnosis for this admission?: Yes (4) Anxiety disorder Is this a current diagnosis for this admission?: Yes (5) Depression Is this a current diagnosis for this admission?: Yes
--- NOTE | 2018-01-15 00:21 | DISCHARGE SUMMARY E ---
Discharge Summary NAME: CARMEN HORTON : 1955 AGE: 62Y ADMITTED: 01/11/2018 DISCHARGED: 01/14/2018 REASON FOR ADMISSION: Partial small bowel obstruction. 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 She was evaluated by Dr. Alvarado and found to have a low likelihood of partial small bowel obstruction. She did have leukocytosis. She was admitted to the Surgical Service for further care. Her narcotics were held, and she was kept on IV fluids and n.p.o. Over the ensuing days, she had marginal clinical improvement. She did have a repeat CT scan on the 4th hospital day which showed no evidence of obstruction. This was performed with oral contrast. She had multiple loops of small bowel with minimal dilation but with thickened wall. The etiology of this was uncertain. She was empirically started on intravenous antibiotics. At this time, she had no fever and no leukocytosis. Her C. difficile titers were negative. She was started on a diet. This was advanced and tolerated reasonably well. By the 5th hospital day, she was felt to receive maximum benefits from hospitalization and was discharged home. FINAL DIAGNOSES: 1. Partial small bowel obstruction, resolved. 2. Regional enteritis, resolved. DISPOSITION: Patient to be discharged home in the care of family. Follow up with [facility] on a p.r.n. basis. DICTATING PHYSICIAN: PIERRE ALVARADO M.D. [id number] PHY#: [id number] ID: [id number] JOB#: [id number] ACCT: [id number] cc:Adelia RAMIREZ NChinaP. >
== END 2018-01-14 18:25 | disposition home or self-care (01) | DRG 390 ==
LOC: ER 06:16 → INTOOBSV 14:00 → EH 14:00 → 2N 18:59 → OBSVTOIN 01-11 16:23
PROVIDERS: ADMIT Surgery; ATTEND Surgery
DX: K56.600 Partial intestinal obstruction, unspecified as to cause (principal); E78.5 Hyperlipidemia, unspecified; I10 Essential (primary) hypertension; K21.9 Gastro-esophageal reflux disease without esophagitis; K52.9 Noninfective gastroenteritis and colitis, unspecified; M19.90 Unspecified osteoarthritis, unspecified site; F32.9 Major depressive disorder, single episode, unspecified; F41.9 Anxiety disorder, unspecified; K59.00 Constipation, unspecified; F43.10 Post-traumatic stress disorder, unspecified; G89.29 Other chronic pain; Z90.49 Acquired absence of other specified parts of digestive tract; Z90.710 Acquired absence of both cervix and uterus; Z79.82 Long term (current) use of aspirin; Z79.899 Other long term (current) drug therapy; Z91.041 Radiographic dye allergy status; Z79.891 Long term (current) use of opiate analgesic; Z82.3 Family history of stroke; Z82.49 Family history of ischemic heart disease and other diseases of the circulatory system; Z80.9 Family history of malignant neoplasm, unspecified
CPT/HCPCS: 36415; 74018; 74019; 74022; 74176; 74177; 80048; 80053; 81001; 82962; 83690; 85025; 87045; 87077; 87205; 87493; 89055; 96361; 96374; 96375; 99285; G0378; J1650; J1885; J2270; J2405; J2765; J3490; S0028

== ENCOUNTER 2018-02-07 06:36 | Emergency (ER) | payer MEDICAID ==
[2018-02-07 07:13] LABS: ABSOLUTE EOSINOPHILS # (AUTO) 0.1 10^3/uL (0.0-0.6); ABSOLUTE MONOCYTES (AUTO) 0.2 10^3/uL (0.1-1.4); ABSOLUTE NEUT (AUTO) 2.1 10^3/uL (1.7-8.2); BASOPHILS % (AUTO) 0.9 % (0-2); EOSINOPHILS % (AUTO) 1.6 % (0-6); HEMATOCRIT 42.6 % (36.0-47.0); HEMOGLOBIN 14.7 g/dL (12.0-15.5); LYMPHOCYTES % (AUTO) 29.7 % (13-45); MEAN CORPUSCULAR HEMOGLOBIN 30.1 pg (27.0-33.4); MEAN CORPUSCULAR HGB CONC 34.5 g/dL (32.0-36.0); MEAN CORPUSCULAR VOLUME 87 fl (80-97); MONOCYTES % (AUTO) 5.6 % (3-13); PLATELET COUNT 218 10^3/uL (150-450); RED BLOOD COUNT 4.88 10^6/uL (3.72-5.28); RED CELL DISTRIBUTION WIDTH 13.5 % (11.5-14.0); SEGMENTED NEUTROPHILS % (AUTO) 62.2 % (42-78); TOTAL CELLS COUNTED % (AUTO) 100 %; WHITE BLOOD COUNT 3.3 10^3/uL (4.0-10.5)
[2018-02-07 07:27] LABS: ALANINE AMINOTRANSFERASE 21 U/L (9-52); ALBUMIN 4.6 g/dL (3.5-5.0); ALKALINE PHOSPHATASE 64 U/L (38-126); ANION GAP 13 (5-19); ASPARTATE AMINO TRANSFERASE 33 U/L (14-36); BILIRUBIN,DIRECT 0.2 mg/dL (0.0-0.4); BILIRUBIN,TOTAL 0.7 mg/dL (0.2-1.3); BLOOD UREA NITROGEN 9 mg/dL (7-20); CARBON DIOXIDE 27 mmol/L (22-30); CHLORIDE 102 mmol/L (98-107); CREATINE KINASE 27 U/L (30-135); GLUCOSE 102 mg/dL (75-110); POTASSIUM 4.2 mmol/L (3.6-5.0); SODIUM 141.5 mmol/L (137-145); TOTAL PROTEIN 7.4 g/dL (6.3-8.2)
--- NOTE | 2018-02-07 07:28 | ER Document Report ---
ED Cardiac - General Chief Complaint: Chest Pain Stated Complaint: CHEST PAIN Time Seen by Provider: 02/07/18 07:14 TRAVEL OUTSIDE OF THE [place] IN LAST 30 DAYS: No - HPI Notes: Patient is a 63-year-old female that presents to the emergency department for chief complaint of left arm and chest pain. Patient reports pain in her left fingers radiating up her left arm into her left shoulder and left side of her chest that started 4 days ago. She states it has been constant and denies any. With the pain had completely resolved. She states it is worse with movement and palpation. She denies any relieving factors. She has tried Tylenol at home with no relief. She states she has had a stress test in the past but it has been years ago when she does not know the results. She denies any history of heart attack or heart catheterization. She reports feeling nauseous with no vomiting. She denies any difficulty breathing or pleuritic pain. She denies injury to the area. She states she has had morphine previously which has helped with similar pains. Past Medical History: Hyperlipidemia, vertigo, IBS, DJD Past Surgical History: Reviewed in chart Social History: Denies drugs alcohol and tobacco Family History: Reviewed and noncontributory for presenting illness Allergies: Reviewed, see documented allergy list. REVIEW OF SYSTEMS: CONSTITUTIONAL : No fever No chills No diaphoresis No recent illness EENT: No vision changes No congestion No sore throat CARDIOVASCULAR: chest pain No palpitations RESPIRATORY: No shortness of breath No cough No difficulty breathing GASTROINTESTINAL: No abdominal pain nausea No vomiting No diarrhea GENITOURINARY: No dysuria No hematuria No difficulty urinating MUSCULOSKELETAL: No back pain No leg pain No arm pain SKIN: No rashes No lesions LYMPHATIC: No swollen, enlarged glands. NEUROLOGICAL: No lightheadedness No headache No weakness No paresthesias PSYCHIATRIC: No anxiety No depression PHYSICAL EXAMINATION: Vital signs reviewed, nursing noted reviewed. GENERAL: Well-appearing, well-nourished and in no acute distress. HEAD: Atraumatic, normocephalic. EYES: Eyes appear normal, extraocular movements intact, sclera anicteric, conjunctiva are normal. ENT: nares patent, oropharynx clear without exudates. Moist mucous membranes. NECK: Normal range of motion, supple without lymphadenopathy LUNGS: Breath sounds clear to auscultation bilaterally and equal. No wheezes rales or rhonchi. HEART: Regular rate and rhythm without murmurs. +2/4 DP and PT pulse bilaterally ABDOMEN: Soft, nontender, normoactive bowel sounds. No rebound, guarding, or rigidity. No masses appreciated. EXTREMITIES: Diffuse tenderness to entire left arm, anterior left chest, and left shoulder. No bony deformity. Tenderness decreases with distraction and is not localized. good range of motion, no pitting or edema. NEUROLOGICAL: No focal neurological deficits. Moves all extremities spontaneously Motor and sensory grossly intact on exam. PSYCH: Normal mood, normal affect. SKIN: Warm, Dry, normal turgor, no rashes or lesions noted on exposed skin - Related Data Allergies/Adverse Reactions: IVP dye Allergy (Intermediate, Uncoded 04/28/17 16:10) rash Past Medical History - Social History Smoking Status: Never Smoker Chew tobacco use (# tins/day): No Frequency of alcohol use: None Drug Abuse: None Family History: CAD, CVA, Malignancy Patient has suicidal ideation: No Patient has homicidal ideation: No - Past Medical History Cardiac Medical History: Reports: Hx Hypercholesterolemia, Hx Hypertension Pulmonary Medical History: Reports: Hx Pneumonia Denies: Hx Asthma, Hx Bronchitis, Hx COPD, Hx Respiratory Failure, Hx Sleep Apnea, Hx Tuberculosis Neurological Medical History: Reports: Hx Cerebrovascular Accident - Patient reports "mini stroke" Endocrine Medical History: Denies: Hx Diabetes Mellitus Type 1, Hx Diabetes Mellitus Type 2 Renal/ Medical History: Reports: Hx Kidney Stones. Denies: Hx End Stage Renal Disease, Hx Ovarian Cysts, Hx Peritoneal Dialysis Malignancy Medical History: Denies: Hx Breast Cancer, Hx Cervical Cancer, Hx Leukemia, Hx Lung Cancer, Hx Ovarian Cancer GI Medical History: Reports: Hx Gastroesophageal Reflux Disease, Hx Ulcer. Denies: Hx Crohn's Disease, Hx Hiatal Hernia, Hx Irritable Bowel, Hx Liver Failure, Hx Pancreatitis Musculoskeletal Medical History: Reports Hx Arthritis, Denies Hx Fibromyalgia, Denies Hx Multiple Sclerosis, Denies Hx Muscular Dystrophy Psychiatric Medical History: Reports: Hx Depression, Hx Post Traumatic Stress Disorder Denies: Hx Bipolar Disorder, Hx Dementia, Hx Schizophrenia Traumatic Medical History: Reports: Hx Fractures - left wrist Infectious Medical History: Denies: Hx HIV Past Surgical History: Reports: Hx Adenoidectomy, Hx Appendectomy, Hx Hysterectomy, Hx Orthopedic Surgery - carpal tunnel, Other - Sigmoid colectomy, rectopexy Dr. Fowler 2013; abdominal wall hernia surg. Denies: Hx Bowel Surgery, Hx Section, Hx Cholecystectomy, Hx Colostomy, Hx Coronary Artery Bypass Graft, Hx Gastric Bypass Surgery, Hx Herniorrhaphy, Hx Mastectomy , Hx Pacemaker, Hx Tonsillectomy, Hx Tubal Ligation - Immunizations Hx Diphtheria, Pertussis, Tetanus Vaccination: Yes Review of Systems - Review of Systems Notes: Dictated Physical Exam - Vital signs Vitals: Resp Pulse Ox 14 100 02/07/18 06:51 02/07/18 06:51 - Notes Notes: Dictated Course - Re-evaluation Re-evalutation: 02/07/18 07:29 Vitals reviewed. Nursing notes reviewed. Patient received 324 mg chewable baby aspirin prior to arrival and 1 sublingual nitro. She states minimal improvement in her pain with those medications. EKG shows no acute ST elevations. 02/07/18 11:56 On reevaluation patient's pain was improved with morphine. Her lab work is unremarkable including negative delta troponins. Patient's chest pain has been constant for 4 days without relief and I do not suspect [place] with 2 negative troponins. Chest x-ray showed no pneumonia pneumothorax or other acute process. Patient is feeling better and will be discharged home in stable condition. She will follow with her primary care doctor for reevaluation in a few days. She will return for new or worsening symptoms. Laboratory 02/07/18 02/07/18 02/07/18 06:55 06:55 06:55 WBC 3.3 L RBC 4.88 Hgb 14.7 Hct 42.6 MCV 87 MCH 30.1 MCHC 34.5 RDW 13.5 Plt Count 218 Seg Neutrophils % 62.2 Lymphocytes % 29.7 Monocytes % 5.6 Eosinophils % 1.6 Basophils % 0.9 Absolute Neutrophils 2.1 Absolute Lymphocytes 1.0 Absolute Monocytes 0.2 Absolute Eosinophils 0.1 Absolute Basophils 0.0 Sodium 141.5 Potassium 4.2 Chloride 102 Carbon Dioxide 27 Anion Gap 13 BUN 9 Creatinine 0.61 Est GFR ( Amer) > 60 Est GFR (Non-Af Amer) > 60 Glucose 102 Calcium 10.0 Total Bilirubin 0.7 Direct Bilirubin 0.2 Neonat Total Bilirubin Not Reportable Neonat Direct Bilirubin Not Reportable Neonat Indirect Bili Not Reportable AST 33 ALT 21 Alkaline Phosphatase 64 Creatine Kinase 27 L CK-MB (CK-2) 0.46 Troponin I < 0.012 Total Protein 7.4 Albumin 4.6 Urine Color Urine Appearance Urine pH Ur Specific [place] Urine Protein Urine Glucose (UA) Urine Ketones Urine Blood Urine Nitrite Urine Bilirubin Urine Urobilinogen Ur Leukocyte Esterase Urine WBC (Auto) Urine Mucus (Auto) Urine Ascorbic Acid 02/07/18 02/07/18 07:52 10:54 WBC RBC Hgb Hct MCV MCH MCHC RDW Plt Count Seg Neutrophils % Lymphocytes % Monocytes % Eosinophils % Basophils % Absolute Neutrophils Absolute Lymphocytes Absolute Monocytes Absolute Eosinophils Absolute Basophils Sodium Potassium Chloride Carbon Dioxide Anion Gap BUN Creatinine Est GFR ( Amer) Est GFR (Non-Af Amer) Glucose Calcium Total Bilirubin Direct Bilirubin Neonat Total Bilirubin Neonat Direct Bilirubin Neonat Indirect Bili AST ALT Alkaline Phosphatase Creatine Kinase CK-MB (CK-2) Troponin I < 0.012 Total Protein Albumin Urine Color COLORLESS Urine Appearance CLEAR Urine pH 8.0 Ur Specific [place] 1.003 Urine Protein NEGATIVE Urine Glucose (UA) NEGATIVE Urine Ketones NEGATIVE Urine Blood NEGATIVE Urine Nitrite NEGATIVE Urine Bilirubin NEGATIVE Urine Urobilinogen NEGATIVE Ur Leukocyte Esterase NEGATIVE Urine WBC (Auto) 0 Urine Mucus (Auto) RARE Urine Ascorbic Acid NEGATIVE Chest X-Ray 02/07/18 06:52 IMPRESSION: No acute cardiopulmonary abnormality 2010 [employer]- All Rights Reserved - Vital Signs Vital signs: Temp Pulse Resp BP Pulse Ox 98.2 F 34 H 135/82 H 100 02/07/18 07:01 02/07/18 11:01 02/07/18 11:01 02/07/18 11:01 - Laboratory Result Diagrams: 02/07/18 06:55 02/07/18 06:55 Laboratory results interpreted by me: 02/07/18 02/07/18 06:55 06:55 WBC 3.3 L Creatine Kinase 27 L - EKG Interpretation by Me Additional EKG results interpreted by me: 02/07/18 07:29 [id number]: Normal sinus rhythm, rate 73, normal axis, no ectopy, no ST elevation Discharge - Discharge Clinical Impression: Left arm pain Chest pain Qualifiers: Chest pain type: unspecified Qualified Code(s): R07.9 - Chest pain, unspecified Condition: Stable Disposition: HOME, SELF-CARE Instructions: Chest Pain of Unclear Cause ([facility]) Additional Instructions: Please return to the emergency department if you have any worsening, or concern of your symptoms. Please return to the emergency department if you develop chest pain, difficulty breathing, severe abdominal pain, or ongoing vomiting. Please follow-up with your primary care physician in 2-3 days and any other recommended physicians. If prescribed, take all medications as directed. If you have any questions or concerns do not hesitate to return the emergency department for evaluation. [] Referrals: LIU MASON, [Primary Care Provider] - Follow up in 3-5 days
--- NOTE | 2018-02-07 07:30 | RADIOLOGY REPORT (SQ) ---
EXAM DESCRIPTION: XR CHEST 1 VIEW COMPLETED DATE/TME: 02/07/2018 06:52 CLINICAL HISTORY: 63 years, Female, CP COMPARISON: 05/07/2017 NUMBER OF VIEWS: One TECHNIQUE: AP view of the chest LIMITATIONS: None. FINDINGS: The lungs are clear. The heart is normal in size. There is no pneumothorax or pleural effusion. There is no acute fracture IMPRESSION: No acute cardiopulmonary abnormality 2010 [employer]- All Rights Reserved
[2018-02-07] MEDS ORDERED: MORPHINE SULFATE 10 MG/ML INJ IV ONE (07:33)
[2018-02-07] MEDS ORDERED: ONDANSETRON HCL INJ/PF 4 MG/2 ML SDV IV ONE (07:34)
[2018-02-07 07:40] LABS: CREATINE KINASE MB 0.46 ng/mL (<4.55)
[2018-02-07 07:45] LABS: TROPONIN I < 0.012 ng/mL
--- NOTE | 2018-02-07 08:09 | EKG REPORT ---
SEVERITY:- NORMAL ECG - SINUS RHYTHM : Confirmed by: Jose M Rome 07-Feb-2018 08:08:47
[2018-02-07 08:17] LABS: APPEARANCE,URINE CLEAR; BILIRUBIN,URINE NEGATIVE (NEGATIVE); COLOR,URINE COLORLESS; GLUCOSE, URINE NEGATIVE (NEGATIVE); KETONES,URINE NEGATIVE (NEGATIVE); LEUKOCYTE ESTERASE,URINE NEGATIVE (NEGATIVE); NITRITE,URINE NEGATIVE (NEGATIVE); PROTEIN,URINE NEGATIVE (NEGATIVE); URINE SPECIFIC GRAVITY 1.003; UROBILINOGEN,URINE NEGATIVE mg/dL (<2.0)
[2018-02-07 12:11] VITALS: BP 126/73
== END 2018-02-07 12:36 | disposition home or self-care (01) ==
LOC: ER 06:36
DX: R07.9 Chest pain, unspecified (principal); M79.602 Pain in left arm; E78.00 Pure hypercholesterolemia, unspecified; I10 Essential (primary) hypertension; Z86.73 Personal history of transient ischemic attack (TIA), and cerebral infarction without residual deficits; Z87.442 Personal history of urinary calculi; Z90.710 Acquired absence of both cervix and uterus
CPT/HCPCS: 93005; 99285; 96374; 96375; 36415; 82553; 82550; 85025; 80053; 81001; 84484; 71045; 93010; J2270; J2405

== ENCOUNTER 2018-03-17 19:16 | Observation (INO) | payer MEDICAID ==
[2018-03-17] MEDS ORDERED: ASPIRIN 81 MG TABLET, CHEWABLE PO ONE (19:18)
[2018-03-17 19:42] LABS: ABSOLUTE EOSINOPHILS # (AUTO) 0.1 10^3/uL (0.0-0.6); ABSOLUTE LYMPHOCYTES (AUTO) 1.5 10^3/uL (0.5-4.7); ABSOLUTE MONOCYTES (AUTO) 0.3 10^3/uL (0.1-1.4); ABSOLUTE NEUT (AUTO) 1.9 10^3/uL (1.7-8.2); BASOPHILS % (AUTO) 1.2 % (0-2); EOSINOPHILS % (AUTO) 3.2 % (0-6); HEMATOCRIT 37.1 % (36.0-47.0); LYMPHOCYTES % (AUTO) 38.6 % (13-45); MEAN CORPUSCULAR HEMOGLOBIN 30.5 pg (27.0-33.4); MEAN CORPUSCULAR VOLUME 87 fl (80-97); MONOCYTES % (AUTO) 6.7 % (3-13); PLATELET COUNT 208 10^3/uL (150-450); RED BLOOD COUNT 4.26 10^6/uL (3.72-5.28); RED CELL DISTRIBUTION WIDTH 13.5 % (11.5-14.0); SEGMENTED NEUTROPHILS % (AUTO) 50.3 % (42-78); TOTAL CELLS COUNTED % (AUTO) 100 %; WHITE BLOOD COUNT 3.8 10^3/uL (4.0-10.5)
--- NOTE | 2018-03-17 20:04 | RADIOLOGY REPORT (SQ) ---
EXAM DESCRIPTION: CHEST SINGLE VIEW COMPLETED DATE/TIME: 03/17/2018 7:55 pm REASON FOR STUDY: cp COMPARISON: 02/07/2017 EXAM PARAMETERS: NUMBER OF VIEWS: One view. TECHNIQUE: Single frontal radiographic view of the chest acquired. RADIATION DOSE: NA LIMITATIONS: None. FINDINGS: LUNGS AND PLEURA: No opacities, masses or pneumothorax. No pleural effusion. MEDIASTINUM AND HILAR STRUCTURES: No masses. Contour normal. HEART AND VASCULAR STRUCTURES: Heart normal in size. Normal vasculature. BONES: No acute findings. HARDWARE: None in the chest. OTHER: No other significant finding. IMPRESSION: NO ACUTE RADIOGRAPHIC FINDING IN THE CHEST. TECHNICAL DOCUMENTATION: JOB ID: [id number] [employer]- All Rights Reserved Reading location - IP/workstation name: [email or web address]
[2018-03-17 20:08] LABS: ALANINE AMINOTRANSFERASE 7 U/L (9-52); ALBUMIN 4.3 g/dL (3.5-5.0); ALKALINE PHOSPHATASE 50 U/L (38-126); ANION GAP 10 (5-19); ASPARTATE AMINO TRANSFERASE 29 U/L (14-36); BILIRUBIN,DIRECT 0.3 mg/dL (0.0-0.4); BILIRUBIN,TOTAL 0.4 mg/dL (0.2-1.3); BLOOD UREA NITROGEN 17 mg/dL (7-20); CALCIUM 9.2 mg/dL (8.4-10.2); CARBON DIOXIDE 28 mmol/L (22-30); CHLORIDE 103 mmol/L (98-107); CREATINE KINASE 40 U/L (30-135); GLUCOSE 158 mg/dL (75-110); POTASSIUM 3.9 mmol/L (3.6-5.0); SODIUM 140.5 mmol/L (137-145); TOTAL PROTEIN 7.3 g/dL (6.3-8.2)
[2018-03-17] MEDS ORDERED: FENTANYL CITRATE INJ/PF 100 MCG/2 ML AMPUL IV ONE ×2 (20:09→23:58)
[2018-03-17] MEDS ORDERED: ONDANSETRON HCL INJ/PF 4 MG/2 ML SDV IV ONE (20:09)
[2018-03-17 20:19] LABS: CREATINE KINASE MB 0.42 ng/mL (<4.55); TROPONIN I < 0.012 ng/mL
[2018-03-17 21:11] LABS: APPEARANCE,URINE CLEAR; BILIRUBIN,URINE NEGATIVE (NEGATIVE); COLOR,URINE COLORLESS; GLUCOSE, URINE NEGATIVE (NEGATIVE); KETONES,URINE NEGATIVE (NEGATIVE); LEUKOCYTE ESTERASE,URINE NEGATIVE (NEGATIVE); NITRITE,URINE NEGATIVE (NEGATIVE); PROTEIN,URINE NEGATIVE (NEGATIVE); URINE SPECIFIC GRAVITY 1.004; UROBILINOGEN,URINE NEGATIVE mg/dL (<2.0)
--- NOTE | 2018-03-18 00:40 | ER Document Report ---
ED Cardiac - General Chief Complaint: Chest Pain Stated Complaint: CHEST PAIN Mode of Arrival: Medic Information source: Patient TRAVEL OUTSIDE OF THE [place] IN LAST 30 DAYS: No - HPI Patient complains to provider of: Chest pain - 63-year-old female with past medical history significant for multiple medical comorbidities including hypertension as well as multiple abdominal surgeries and hyperlipidemia the presents for evaluation of chest pain which has been persistent through the day. She has had episodes of chest pain in the past for which she has been placed on as needed nitroglycerin. She did not take any today to try to help with this chest pain. The chest pain is been worse with exertion and deep breathing. Its persistence now radiating the shoulder down the arm. She called EMS for help at which time they told her to take aspirin which she did which helped only slightly with her chest pain. At the time of arrival she was noted to have a blood pressure of 180 systolic after administration of nitroglycerin in the ambulance her blood pressure improved to 120s she said that her chest pain did improve somewhat with that medication. She is uncertain if she is ever had a stress test or an echocardiogram. Denies any previous catheterizations in the past. - Related Data Allergies/Adverse Reactions: IVP dye Allergy (Intermediate, Uncoded 04/28/17 16:10) rash Past Medical History - General Information source: Patient - Social History Smoking Status: Unknown if Ever Smoked Family History: CAD, CVA, Malignancy Patient has suicidal ideation: No Patient has homicidal ideation: No - Past Medical History Cardiac Medical History: Reports: Hx Hypercholesterolemia, Hx Hypertension Pulmonary Medical History: Reports: Hx Pneumonia Denies: Hx Asthma, Hx Bronchitis, Hx COPD, Hx Respiratory Failure, Hx Sleep Apnea, Hx Tuberculosis Neurological Medical History: Reports: Hx Cerebrovascular Accident - Patient reports "mini stroke" Endocrine Medical History: Denies: Hx Diabetes Mellitus Type 1, Hx Diabetes Mellitus Type 2 Renal/ Medical History: Reports: Hx Kidney Stones. Denies: Hx End Stage Renal Disease, Hx Ovarian Cysts, Hx Peritoneal Dialysis Malignancy Medical History: Denies: Hx Breast Cancer, Hx Cervical Cancer, Hx Leukemia, Hx Lung Cancer, Hx Ovarian Cancer GI Medical History: Reports: Hx Gastroesophageal Reflux Disease, Hx Ulcer. Denies: Hx Crohn's Disease, Hx Hiatal Hernia, Hx Irritable Bowel, Hx Liver Failure, Hx Pancreatitis Musculoskeletal Medical History: Reports Hx Arthritis, Denies Hx Fibromyalgia, Denies Hx Multiple Sclerosis, Denies Hx Muscular Dystrophy Psychiatric Medical History: Reports: Hx Depression, Hx Post Traumatic Stress Disorder Denies: Hx Bipolar Disorder, Hx Dementia, Hx Schizophrenia Traumatic Medical History: Reports: Hx Fractures - left wrist Infectious Medical History: Denies: Hx HIV Past Surgical History: Reports: Hx Adenoidectomy, Hx Appendectomy, Hx Hysterectomy, Hx Orthopedic Surgery - carpal tunnel, Other - Sigmoid colectomy, rectopexy Dr. Fowler 2013; abdominal wall hernia surg. Denies: Hx Bowel Surgery, Hx Section, Hx Cholecystectomy, Hx Colostomy, Hx Coronary Artery Bypass Graft, Hx Gastric Bypass Surgery, Hx Herniorrhaphy, Hx Mastectomy , Hx Pacemaker, Hx Tonsillectomy, Hx Tubal Ligation - Immunizations Hx Diphtheria, Pertussis, Tetanus Vaccination: Yes Review of Systems - Review of Systems -: Yes All other systems reviewed and negative Physical Exam - Vital signs Vitals: Pulse Ox 97 03/17/18 19:19 - General General appearance: Anxious In distress: Moderate - HEENT Head: Normocephalic, Atraumatic Eyes: Normal Pupils: PERRL - Respiratory Respiratory status: No respiratory distress Chest status: Tender - Tenderness to palpation along left chest wall, Breath sounds: Normal Chest palpation: Normal - Cardiovascular Rhythm: Tachycardia Heart sounds: Normal auscultation - Abdominal Inspection: Normal Distension: No distension Bowel sounds: Normal Tenderness: Nontender Organomegaly: No organomegaly - Back Back: Normal, Nontender - Extremities General upper extremity: Normal inspection, Nontender, Normal color, Normal ROM , Normal temperature General lower extremity: Normal inspection, Nontender, Normal color, Normal ROM , Normal temperature, Normal weight bearing. No: Sam's sign - Neurological Neuro grossly intact: Yes Cognition: Normal Orientation: AAOx4 Familia Coma Scale Eye Opening: Spontaneous [place] Coma Scale Verbal: Oriented [place] Coma Scale Motor: Obeys Commands [place] Coma Scale Total: 15 Speech: Normal Motor strength normal: LUE, RUE, LLE, RLE Sensory: Normal - Psychological Associated symptoms: Normal affect, Normal mood Course - Re-evaluation Re-evalutation: 03/18/18 00:38 There is a 63-year-old female with multiple medical comorbidities who presents for left-sided chest pain worse with respirations. Did respond somewhat to nitroglycerin in route. She has taken aspirin. Has a nondescript EKG which is abnormal but not diagnostic. Given her persistent pain response to aspirin and nitroglycerin would say that she has a moderately suspicious story for a point of 1 Her EKG demonstrates a abnormality without profound depressions for a point of 1 She is 63 years old for a point of 1 Her troponin is negative Her risk factors are multiple getting her a point of 2 Her total heart score is a 5, she will have serial troponins, reassessment while in the emergency department and monitoring. Second troponin is negative, this patient will be admitted to the hospital for ongoing management and monitoring of her chest pain. She is received fentanyl twice for her chest pain while in emergency department which did help improve her symptoms. Aggressive workup is relatively unremarkable at this time as to the underlying cause of her potential chest pain. - Vital Signs Vital signs: Temp Pulse Resp BP Pulse Ox 98.6 F 8 L 166/87 H 99 03/17/18 19:38 03/17/18 23:01 03/17/18 23:01 03/17/18 23:01 - Laboratory Result Diagrams: 03/17/18 19:30 03/17/18 19:30 Laboratory results interpreted by me: 03/17/18 03/17/18 19:30 19:30 WBC 3.8 L Glucose 158 H ALT 7 L Discharge - Discharge Clinical Impression: Chest pain Qualifiers: Chest pain type: unspecified Qualified Code(s): R07.9 - Chest pain, unspecified Condition: Stable Disposition: ADMITTED INPATIENT Admitting Provider: Hospitalist Unit Admitted: Telemetry Referrals: LIU MASON DO [Primary Care Provider] - Follow up as needed
[2018-03-18] MEDS ORDERED: PROMETHAZINE HCL INJ 25 MG/1 ML VIAL IV PRN (00:44)
[2018-03-18] MEDS ORDERED: MAG HYDROX/AL HYDROX/SIMETH SUSP 30 ML UDCUP PO PRN (00:44)
[2018-03-18] MEDS ORDERED: ACETAMINOPHEN 325 MG TABLET PO PRN ×2 (00:44→01:32)
[2018-03-18] MEDS ORDERED: NITROGLYCERIN 0.4 MG/TAB 25 TAB/BOTTLE SL PRN ×2 (00:47→01:32)
[2018-03-18] MEDS ORDERED: MORPHINE SULFATE 10 MG/ML INJ IV PRN (00:48)
[2018-03-18] MEDS ORDERED: KETOROLAC TROMETHAMINE INJ/PF 30 MG/1 ML SDV IV PRN (01:31)
[2018-03-18] MEDS ORDERED: (PENDING PHARMACY ID) (Aspirin/Acetaminophen/Caffeine [Excedrin Migraine Caplet] 1 EACH) PO PRN (01:32)
[2018-03-18] MEDS ORDERED: FLUTICASONE NASAL SPRAY 50 MCG/SPRY 120 SPRAY/16 GM NASL PRN (01:32)
[2018-03-18] MEDS ORDERED: MECLIZINE HCL 12.5 MG TABLET PO PRN (01:32)
--- NOTE | 2018-03-18 02:56 | PDOC H&P ---
History of Present Illness Admission Date/PCP: 03/18/18 00:53 LIU MASON DO Patient complains of: Chest pain History of Present Illness: CARMEN HORTON is a 63 year old female with past medical history significant for multiple medical comorbidities including hypertension as well as multiple abdominal surgeries and hyperlipidemia the presents for evaluation of chest pain while laying down in the bed at 5 PM which has been persistent through the day. She has had episodes of chest pain in the past for which she has been placed on as needed nitroglycerin. She did not take any today to try to help with this chest pain. The chest pain is been worse with exertion and deep breathing. Its persistence now radiating the shoulder down the arm, refers it as burning and stabbing up to 5/10 in intensity. States that she felt sweaty with mild nausea and dizziness, has shortness of breath which is chronic and does not change. Denies vomiting, fever or chills. She called EMS for help at which time they told her to take aspirin which she did which helped only slightly with her chest pain. At the time of arrival she was noted to have a blood pressure of 180 systolic after administration of nitroglycerin in the ambulance her blood pressure improved to 120s she said that her chest pain did improve somewhat with that medication. She has history of GERD but he states this symptoms are different. As per medical records patient had a stress test here, last on April 2016 which came back negative. Patient believes he had a cardiac catheterization before, years ago with Dr. 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 In the emergency department for set of troponins negative, EKG with T wave inversions only 3 and aVF, Q wave in lead III. Do not have a full EKG to compare to. Past Medical History Cardiac Medical History: Reports: Hyperlipidema, Hypertension Pulmonary Medical History: Reports: Pneumonia GI Medical History: Reports: Gastroesophageal Reflux Disease Musculoskeltal Medical History: Reports: Arthritis Psychiatric Medical History: Reports: Depression, General Anxiety Disorder, Post Traumatic Stress Disorder Hematology: Denies: Anemia, Hemophilia, Sickle Cell Disease Infectious Medical History: Denies: HIV Past Surgical History Past Surgical History: Reports: Adenoidectomy, Appendectomy, Hysterectomy, Orthopedic Surgery - carpal tunnel, Other - Sigmoid colectomy, rectopexy Dr. 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 Parental Family History Reviewed: Yes - As above Children Family History Reviewed: Yes Sibling(s) Family History Reviewed.: Yes Medication/Allergy Home Medications: Aspirin [Aspirin EC] 81 mg PO DAILY 09/11/17 Cholecalciferol (Vitamin D3) [Vitamin D3 2000 unit Tablet] 2,000 unit PO DAILY 09/11/17 Eszopiclone [Lunesta] 3 mg PO QHS 09/11/17 Famotidine [Pepcid] 20 mg PO BID 09/11/17 Fluticasone Propionate [Flonase Nasal Marble 50 Mcg/Marble 16 gm] 1 spray NASL DAILYP PRN 09/11/17 L.acidoph,Paracasei, B.lactis [Probiotic] 1 each PO DAILY 09/11/17 Linaclotide [Linzess] 72 mcg PO DAILY 09/11/17 Meclizine HCl [Antivert 12.5 mg Tablet] 12.5 mg PO DAILYP PRN 09/11/17 Nitroglycerin [Nitrostat 0.4 mg (1/150 Gr) Tabs 25/Bottle] 1 tab SL Q5MP PRN Simvastatin [Zocor 80 mg Tablet] 80 mg PO QHS 09/11/17 Acetaminophen [Tylenol Extra Strength 500 mg Tablet] 1 tab PO Q4HP PRN 10/31/17 Raloxifene HCl [Evista 60 mg Tablet] 60 mg PO DAILY 10/31/17 Aspirin/Acetaminophen/Caffeine [Excedrin Migraine Caplet] 1 each PO PRN PRN Vortioxetine Hydrobromide [Trintellix] 15 mg PO DAILY 01/10/18 Allergies/Adverse Reactions: IVP dye Allergy (Intermediate, Uncoded 04/28/17 16:10) rash Review of Systems Review of Systems: As outlined in the HPI, all others negative Physical Exam Vital Signs: Temp Pulse Resp BP Pulse Ox 98.3 F 57 L 15 123/63 99 03/18/18 02:13 03/18/18 02:13 03/18/18 02:13 03/18/18 02:13 03/18/18 02:13 Intake & Output 03/16/18 03/17/18 03/18/18 06:59 06:59 06:59 Weight 53.3 kg Additional comments: General appearance: Elderly, thin, alert and cooperative, and appears to be in no acute distress Head: Normocephalic Eyes: PEERL, EOMI, vision is grossly intact. Ears: External auditory canal and tympanic membranes clear, hearing grossly intact. Nose: No nasal discharge. Throat: Oral cavity and pharynx normal. No inflammation, swelling, exudate or lesions. Neck: Neck supple, nontender without lymphadenopathy, masses or thyromegaly. Cardiac: Normal S1 and S2. No S3, S4 or murmurs. Rhythm is regular. There is no cyanosis or pallor. Extremities are warm and well perfused. Capillary refill is less than 2 seconds. No carotid bruits. Thorax: Reproducible tenderness to palpation in the left thorax with excruciating pain. Lungs: Clear to auscultation and percussion without rales, rhonchi, wheezing or diminished breath sounds. Not using accessory muscles. Abdomen: Positive bowel sounds. Soft. Nondistended, nontender. No guarding or rebound. No masses. No hepatosplenomegaly Extremities: No significant deformity or joint abnormality. No edema. Peripheral pulses intact. No varicosities. Neurological: Cranial nerves II through XII grossly intact. Strength and sensation symmetric and intact throughout. Reflexes 2+ throughout. Skin: Skin normal color, texture and turgor with no lesions or eruptions, warm and dry. Psychiatric: The mental examination revealed the patient was oriented to person , place, and time. The patient was able to demonstrate good judgment on recent , without hallucinations, abnormal affect or abnormal behaviors. Results Laboratory Results: 03/17/18 03/17/18 03/17/18 19:30 19:30 19:30 WBC 3.8 L RBC 4.26 Hgb 13.0 Hct 37.1 MCV 87 MCH 30.5 MCHC 35.0 RDW 13.5 Plt Count 208 Seg Neutrophils % 50.3 Lymphocytes % 38.6 Monocytes % 6.7 Eosinophils % 3.2 Basophils % 1.2 Absolute Neutrophils 1.9 Absolute Lymphocytes 1.5 Absolute Monocytes 0.3 Absolute Eosinophils 0.1 Absolute Basophils 0.0 Sodium 140.5 Potassium 3.9 Chloride 103 Carbon Dioxide 28 Anion Gap 10 BUN 17 Creatinine 0.61 Est GFR ( Amer) > 60 Est GFR (Non-Af Amer) > 60 Glucose 158 H Calcium 9.2 Total Bilirubin 0.4 Direct Bilirubin 0.3 AST 29 ALT 7 L Alkaline Phosphatase 50 Creatine Kinase 40 CK-MB (CK-2) 0.42 Troponin I < 0.012 Total Protein 7.3 Albumin 4.3 Urine Color Urine Appearance Urine pH Ur Specific Cameron Urine Protein Urine Glucose (UA) Urine Ketones Urine Blood Urine Nitrite Urine Bilirubin Urine Urobilinogen Ur Leukocyte Esterase Urine WBC (Auto) Urine Bacteria (Auto) Urine Ascorbic Acid 03/17/18 03/17/18 20:30 23:09 WBC RBC Hgb Hct MCV MCH MCHC RDW Plt Count Seg Neutrophils % Lymphocytes % Monocytes % Eosinophils % Basophils % Absolute Neutrophils Absolute Lymphocytes Absolute Monocytes Absolute Eosinophils Absolute Basophils Sodium Potassium Chloride Carbon Dioxide Anion Gap BUN Creatinine Est GFR ( Amer) Est GFR (Non-Af Amer) Glucose Calcium Total Bilirubin Direct Bilirubin AST ALT Alkaline Phosphatase Creatine Kinase CK-MB (CK-2) Troponin I 0.013 Total Protein Albumin Urine Color COLORLESS Urine Appearance CLEAR Urine pH 7.0 Ur Specific Cameron 1.004 Urine Protein NEGATIVE Urine Glucose (UA) NEGATIVE Urine Ketones NEGATIVE Urine Blood NEGATIVE Urine Nitrite NEGATIVE Urine Bilirubin NEGATIVE Urine Urobilinogen NEGATIVE Ur Leukocyte Esterase NEGATIVE Urine WBC (Auto) 0 Urine Bacteria (Auto) TRACE Urine Ascorbic Acid NEGATIVE EKG Comments: Normal sinus rhythm at 95 bpm, T wave inversions in lead III and aVF, Q wave in lead III. Impressions: Chest X-Ray 03/17/18 19:19 IMPRESSION: NO ACUTE RADIOGRAPHIC FINDING IN THE CHEST. Assessment & Plan - Diagnosis (1) Chest pain Qualifiers: Chest pain type: unspecified Qualified Code(s): R07.9 - Chest pain, unspecified Is this a current diagnosis for this admission?: Yes Plan: Patient comes with complaints of left-sided chest pain radiated to the left arm , worsening with deep inspirations, reproducible to palpation excruciating, patient has been having episodes of chest pain on and off for a long time and extensive cardiac workup has been doing the past which has been unremarkable. I believe that her chest pain is secondary to costochondritis however we will keep the patient under observation with telemetry monitoring and cardiac enzymes x3, at this point I do not feel that a stress test is necessary. Feel free to order this tomorrow if you feel is necessary. Patient had pharmacological stress test in the past, tells me that is very painful, also tells me that she has allergies to dye given during CT scans, sometimes she has received Benadryl but she is not sure if she has received Benadryl for the stress test. (2) Hypertension Qualifiers: Hypertension type: essential hypertension Qualified Code(s): I10 - Essential (primary) hypertension Is this a current diagnosis for this admission?: Yes Plan: Initial blood pressure 166/87 which improved after nitroglycerin to 133/66. Resume home antihypertensive medication. (3) GERD (gastroesophageal reflux disease) Qualifiers: Esophagitis presence: without esophagitis Qualified Code(s): K21.9 - Gastro -esophageal reflux disease without esophagitis Is this a current diagnosis for this admission?: Yes Plan: Continue with antiacids (4) DVT prophylaxis Is this a current diagnosis for this admission?: Yes Plan: Lovenox - Time Time Spent: 50 to 70 Minutes - Plan Summary Plan Summary: Case discussed with patient, agree with plan.
[2018-03-18 03:01] LABS: URINE AMPHETAMINES SCREEN NEGATIVE; URINE BARBITURATES SCREEN NEGATIVE; URINE BENZODIAZEPINES SCREEN NEGATIVE; URINE COCAINE SCREEN NEGATIVE; URINE MARIJUANA (THC) SCREEN NEGATIVE; URINE METHADONE SCREEN NEGATIVE; URINE PHENCYCLIDINE SCREEN NEGATIVE
[2018-03-18] MEDS: PROMETHAZINE HCL 25 MG TABLET PO PRN ×3 (03:53→16:45)
[2018-03-18] MEDS: OXYCODONE-ACETAMINOPHEN 5-325 MG TABLET PO PRN ×3 (03:53→16:15)
--- NOTE | 2018-03-18 07:50 | EKG REPORT ---
SEVERITY:- ABNORMAL ECG - SINUS RHYTHM INFERIOR INFARCT, AGE INDETERMINATE CONSIDER ANTERIOR INFARCT : Confirmed by: Martir Molina MD 18-Mar-2018 07:50:02
[2018-03-18] MEDS ORDERED: ENOXAPARIN SODIUM INJ 40 MG/0.4 ML DISP.SYRIN SUBCUT SCH (10:00)
[2018-03-18] MEDS ORDERED: (PENDING PHARMACY ID) (L.Acidoph,Paracasei, B.Lactis [Probiotic] 1 EACH) PO SCH (10:00)
[2018-03-18] MEDS ORDERED: FAMOTIDINE 20 MG TABLET PO SCH (10:00)
[2018-03-18] MEDS ORDERED: RALOXIFENE HCL 60 MG TABLET PO SCH (10:00)
[2018-03-18] MEDS ORDERED: (PENDING PHARMACY ID) (Linaclotide [Linzess] 72 MCG) PO SCH (10:00)
[2018-03-18] MEDS ORDERED: VORTIOXETINE HYDROBROMIDE 15 MG PO SCH (10:00)
[2018-03-18] MEDS ORDERED: CHOLECALCIFEROL (D3) 1,000 UNIT TABLET PO SCH (10:00)
[2018-03-18] MEDS ORDERED: ASPIRIN 81 MG TABLET, ENT COATED PO SCH (10:00)
[2018-03-18] MEDS ORDERED: (PENDING PHARMACY ID) (Diclofenac Sodium [Voltaren] 4 GM) TOP PRN (10:23)
[2018-03-18] MEDS ORDERED: SUCRALFATE 1 GM TABLET PO ONE (11:00)
[2018-03-18] MEDS ORDERED: METOCLOPRAMIDE HCL INJ/PF 10 MG/2 ML SDV IV ONE (11:00)
--- NOTE | 2018-03-18 11:13 | PDOC DISCHARGE SUMMARY ---
General - Admit/Disc Date/PCP Admission Date/Primary Care Provider: 03/18/18 00:53 LIU MASON, DO Discharge Date: 03/18/18 - Discharge Diagnosis (1) Chest pain Is this a current diagnosis for this admission?: Yes Summary: In view of the patient's negative cardiac evaluation, I am strongly suspicious that the problem is most likely gastrointestinal in etiology. I believe she is suffering from gastric esophageal reflux disease with esophagitis and that would account for the burning nature of her pain and its rapid partial relief response to nitroglycerin. With this in mind the patient is instructed to take Reglan 10 mg p.o. before meals and at bedtime, Carafate 1 g p.o. before meals and at bedtime and to change her famotidine to 10 mg (one half 20 mg tablet) p.o. before meals and at bedtime. She will follow-up with her primary care provider for reevaluation and assessment of her therapeutic efficacy within 1-2 weeks. (2) GERD (gastroesophageal reflux disease) Is this a current diagnosis for this admission?: Yes Summary: I am strongly suspicious that the problem is most likely gastrointestinal in etiology. I believe she is suffering from gastric esophageal reflux disease with esophagitis and that would account for the burning nature of her pain and its rapid partial relief response to nitroglycerin. With this in mind the patient is instructed to take Reglan 10 mg p.o. before meals and at bedtime, Carafate 1 g p.o. before meals and at bedtime and to change her famotidine to 10 mg (one half 20 mg tablet) p.o. before meals and at bedtime. Additionally it was noted that she is taking a nonsteroidal anti-inflammatory (diclofenac) and she does not appear to be having significant benefit from this medication. Her chest pain did not respond well to Toradol that was given in the hospital and thus if she is not using diclofenac for some other purpose it may be worthwhile to discontinue it as it could certainly prove to be a contributory factor to worsening of her gastroesophageal reflux disorder. She will follow- up with her primary care provider for reevaluation and assessment of her therapeutic efficacy within 1-2 weeks. (3) Hypertension Is this a current diagnosis for this admission?: Yes Summary: The patient's hypertension seems to be in response to pain and anxiety, as it has been well controlled since her chest pain was relieved and she calm down in the emergency room. She is not currently on antihypertensive agent other than 12.5 mg of hydrochlorothiazide daily. Patient's blood pressure was so well controlled in her normal state with this therapy and that I would not recommend adding additional antihypertensive agents at this time. If patient continues to have labile hypertension it may be better to address the underlying problem/ stimulus for her hypertension. (4) Anxiety disorder Is this a current diagnosis for this admission?: Yes Summary: Patient definitely has a significant anxiety component to her medical problems. I believe this may well be contributing to her hypertension and it may also be contributing to her GERD. I have not prescribed any anxiolytic as I believe that this should be done by her primary care provider who is going to be seeing her in follow-up. Given her chronic dysthymia it may be reasonable to treat her with a medication such as Lexapro if benzodiazepines are not desirable or clonazepam if there is no reason to avoid benzodiazepines. - Additional Information Discharge Diet: Cardiac Discharge Activity: Activity As Tolerated Prescriptions: Famotidine [Pepcid] 10 mg PO ACHS 30 Days #60 tablet Metoclopramide HCl [Reglan 10 mg Tablet] 10 mg PO ACHS 30 Days #120 tablet Sucralfate [Carafate 1 gm Tablet] 1 gm PO ACHS #120 tablet Home Medications: Cholecalciferol (Vitamin D3) [Vitamin D3 2000 unit Tablet] 2,000 unit PO DAILY 09/11/17 Eszopiclone [Lunesta] 3 mg PO QHS 09/11/17 Fluticasone Propionate [Flonase Nasal [place] 50 Mcg/[place] 16 gm] 1 spray NASL DAILYP PRN 09/11/17 Linaclotide [Linzess] 72 mcg PO ACBRKFST 09/11/17 Meclizine HCl [Antivert 12.5 mg Tablet] 12.5 mg PO DAILYP PRN 09/11/17 Nitroglycerin [Nitrostat 0.4 mg (1/150 Gr) Tabs 25/Bottle] 1 tab SL Q5MP PRN Simvastatin [Zocor 80 mg Tablet] 80 mg PO QPM 09/11/17 Acetaminophen [Tylenol Extra Strength 500 mg Tablet] 500 mg PO Q4HP PRN Raloxifene HCl [Evista 60 mg Tablet] 60 mg PO DAILY 10/31/17 Vortioxetine Hydrobromide [Trintellix] 10 mg PO DAILY 01/10/18 Aspirin [Aspirin 81 mg Chewable Tablet] 81 mg PO DAILY 03/18/18 Brexpiprazole [Rexulti] 0.5 mg PO DAILY 03/18/18 Diclofenac Sodium [Voltaren] 4 gm TOP DAILYP PRN 03/18/18 Famotidine [Pepcid] 10 mg PO ACHS 30 Days #60 tablet 03/18/18 Hydrochlorothiazide [Hydrodiuril 12.5 mg Tablet] 12.5 mg PO DAILY 03/18/18 Metoclopramide HCl [Reglan 10 mg Tablet] 10 mg PO ACHS 30 Days #120 tablet 03/18 Sucralfate [Carafate 1 gm Tablet] 1 gm PO ACHS #120 tablet 03/18/18 History of Present Illness Patient complains of: Chest pain History of Present Illness: CARMEN HORTON is a 63 year old female who presented to the emergency room with acute onset chest pain. Patient relates that she began having chest pain at approximately 5 PM on the evening before admission which persisted until she arrived in the hospital. Pain is a moderate sharp stabbing and burning pain in the central and left chest radiating to the left arm and shoulder. The pain was accompanied by nausea, diaphoresis and dizziness or lightheadedness. She notes that she was lying in bed at the time that the pain began and she got up and checked her blood pressure and it was high and that seemed to make her chest pain get worse. Then she lay back down in bed and checked her blood pressure after a few minutes and it was even higher. She summoned EMS and upon their arrival they found her to have a systolic pressure of 180 and complaints of chest pain and as such she was given nitroglycerin sublingually and her chest pain was greatly reduced and her blood pressure improved to systolics in the 120s. In the emergency room her cardiac enzymes were negative x2 and her EKG showed some nonspecific T wave changes, but no evidence for myocardial injury or ischemia. She was subsequently hospitalized on inpatient observation status for repeat cardiac enzymes and further evaluation. Hospital Course Hospital Course: Patient's cardiac enzymes remained negative with a troponin I level of 0.012. 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 There is no evidence of acute myocardial ischemia or injury. The patient's presenting symptoms were generally well controlled/resolved on the morning of 03/18/2018, although she continued to have her chronic discomforts and dyspnea. Because she was back to her baseline state with no evidence of acute cardiac problems it was felt that she could be discharged home in improved and stable condition with additional treatment aimed at controlling her probable esophagitis related chest pain. This will be accomplished by starting her on Reglan 10 mg p.o. before meals and at bedtime and Carafate 1 g p.o. before meals and at bedtime. Her Pepcid will be changed to 10 mg p.o. before meals and at bedtime and she is encouraged to follow-up with her primary care provider within the next 1-2 weeks. She is being discharged home in improved and stable condition. Physical Exam Vital Signs: Temp Pulse Resp BP Pulse Ox 98.2 F 54 L 16 127/64 H 100 03/18/18 08:36 03/18/18 08:36 03/18/18 08:36 03/18/18 08:36 03/18/18 08:36 Intake & Output 03/16/18 03/17/18 03/18/18 23:59 23:59 23:59 Weight 53.3 kg General appearance: PRESENT: no acute distress, cooperative Head exam: PRESENT: atraumatic, normocephalic Eye exam: PRESENT: conjunctiva pink, EOMI Ear exam: PRESENT: normal external ear exam Mouth exam: PRESENT: neck supple Respiratory exam: PRESENT: clear to auscultation alice, symmetrical, unlabored Cardiovascular exam: PRESENT: RRR. ABSENT: bradycardia, clicks, diastolic murmur, gallop, rubs, systolic murmur, tachycardia Vascular exam: PRESENT: normal capillary refill. ABSENT: pallor GI/Abdominal exam: PRESENT: normal bowel sounds, soft Rectal exam: PRESENT: deferred Extremities exam: ABSENT: joint swelling, pedal edema Musculoskeletal exam: ABSENT: deformity, dislocation Neurological exam: PRESENT: alert, oriented to person, oriented to place, oriented to time, oriented to situation, CN II-XII grossly intact. ABSENT: motor sensory deficit Psychiatric exam: PRESENT: anxious - Anxious affect, depressed - Depressed mood Skin exam: PRESENT: dry, intact, warm Results Laboratory Results: 03/18/18 04:59 Troponin I < 0.012 Impressions: Chest X-Ray 03/17/18 19:19 IMPRESSION: NO ACUTE RADIOGRAPHIC FINDING IN THE CHEST. Qualifiers - * PATIENT BEING DISCHARGED WITH ANY OF THE FOLLOWING DIAGNOSIS: No Plan Discharge Plan: Discharged to home in improved and stable condition Time Spent: Greater than 30 Minutes
[2018-03-18] MEDS: FAMOTIDINE 20 MG TABLET PO SCH ×2 (11:36→16:40)
[2018-03-18] MEDS ORDERED: SUCRALFATE SUSP 1 GM/10 ML UDCUP PO SCH (16:00)
[2018-03-18] MEDS ORDERED: METOCLOPRAMIDE HCL 10 MG TABLET PO SCH (16:00)
[2018-03-18 16:47] VITALS: BP 114/54
[2018-03-18] MEDS ORDERED: SIMVASTATIN 40 MG TABLET PO SCH (22:00)
[2018-03-18] MEDS ORDERED: ZOLPIDEM TARTRATE 5 MG TABLET PO SCH (22:00)
[2018-03-19] MEDS ORDERED: ASPIRIN 81 MG TABLET, CHEWABLE PO SCH (10:00)
[2018-03-19] MEDS ORDERED: HYDROCHLOROTHIAZIDE 12.5 MG TABLET PO SCH (10:00)
[2018-03-19] MEDS ORDERED: LACTOBACILLUS ACIDOPHILUS 250 MG TAB PO SCH (10:00)
[2018-03-19] MEDS ORDERED: (PENDING PHARMACY ID) (Brexpiprazole [Rexulti] 0.5 MG) PO SCH (10:00)
== END 2018-03-18 18:38 | disposition home or self-care (01) ==
LOC: ER 19:16 → EH 03-18 00:53 → INTOOBSV 03-18 00:53 → 4S 03-18 02:07
PROVIDERS: ADMIT Internal Medicine; ATTEND Internal Medicine
DX: R07.89 Other chest pain (principal); K21.9 Gastro-esophageal reflux disease without esophagitis; I10 Essential (primary) hypertension; F41.1 Generalized anxiety disorder; F34.1 Dysthymic disorder; R11.0 Nausea; R61 Generalized hyperhidrosis; R42 Dizziness and giddiness; R06.00 Dyspnea, unspecified; E78.5 Hyperlipidemia, unspecified; Z79.899 Other long term (current) drug therapy; Z98.890 Other specified postprocedural states; Z90.49 Acquired absence of other specified parts of digestive tract; Z90.710 Acquired absence of both cervix and uterus; Z82.49 Family history of ischemic heart disease and other diseases of the circulatory system; Z82.3 Family history of stroke; Z80.8 Family history of malignant neoplasm of other organs or systems; Z79.82 Long term (current) use of aspirin; Z91.041 Radiographic dye allergy status; Z86.73 Personal history of transient ischemic attack (TIA), and cerebral infarction without residual deficits
CPT/HCPCS: 93005; 96376; 99285; 96374; 96375; 36415 ×2; 82553; 82550; 85025; 80053; 81001; 84484 ×2; 80307; 71045; 93010; J3490 ×8; J3010 ×2; J1885; J2765; J1650; J2405; G0378

== ENCOUNTER 2018-03-23 18:35 | Emergency (ER) | payer MEDICAID ==
[2018-03-23] MEDS ORDERED: NORMAL SALINE 1000 ML 1,000 ML IV ONE (19:08)
[2018-03-23] MEDS ORDERED: ONDANSETRON HCL INJ/PF 4 MG/2 ML SDV IV ONE (19:08)
[2018-03-23] MEDS ORDERED: FENTANYL CITRATE INJ/PF 100 MCG/2 ML AMPUL IV ONE ×2 (19:08→20:35)
--- NOTE | 2018-03-23 19:10 | ER Document Report ---
ED Medical Screen (RME) - General Chief Complaint: Abdominal Pain >50 Stated Complaint: NAUSEA,VOMITING,ABDOMINAL PAIN Time Seen by Provider: 03/23/18 19:05 Notes: 63 years old female presents today with lower abdominal pain cramps nausea vomiting. Since this morning. No fever chills. Seems to be in moderate to severe pain. Diffuse tenderness over the lower abdomen. Possible bowel obstruction. TRAVEL OUTSIDE OF THE [place] IN LAST 30 DAYS: No - Related Data Allergies/Adverse Reactions: IVP dye Allergy (Intermediate, Uncoded 03/23/18 18:36) rash Past Medical History - Social History Frequency of alcohol use: None Drug Abuse: None - Past Medical History Cardiac Medical History: Reports: Hx Hypercholesterolemia, Hx Hypertension Pulmonary Medical History: Reports: Hx Pneumonia Denies: Hx Asthma, Hx Bronchitis, Hx COPD, Hx Respiratory Failure, Hx Sleep Apnea, Hx Tuberculosis Neurological Medical History: Reports: Hx Cerebrovascular Accident - Patient reports "mini stroke" Endocrine Medical History: Denies: Hx Diabetes Mellitus Type 1, Hx Diabetes Mellitus Type 2 Renal/ Medical History: Reports: Hx Kidney Stones. Denies: Hx End Stage Renal Disease, Hx Ovarian Cysts, Hx Peritoneal Dialysis Malignancy Medical History: Denies: Hx Breast Cancer, Hx Cervical Cancer, Hx Leukemia, Hx Lung Cancer, Hx Ovarian Cancer GI Medical History: Reports: Hx Gastroesophageal Reflux Disease, Hx Hiatal Hernia, Hx Ulcer. Denies: Hx Crohn's Disease, Hx Irritable Bowel, Hx Liver Failure, Hx Pancreatitis Musculoskeltal Medical History: Reports Hx Arthritis, Denies Hx Fibromyalgia, Denies Hx Multiple Sclerosis, Denies Hx Muscular Dystrophy Psychiatric Medical History: Reports: Hx Depression, Hx Post Traumatic Stress Disorder Denies: Hx Bipolar Disorder, Hx Dementia, Hx Schizophrenia Traumatic Medical History: Reports: Hx Fractures - left wrist Infectious Medical History: Denies: Hx HIV Past Surgical History: Reports: Hx Adenoidectomy, Hx Appendectomy, Hx Cholecystectomy, Hx Hysterectomy, Hx Orthopedic Surgery - carpal tunnel, Other - Sigmoid colectomy, rectopexy Dr. Fowler 2012; abdominal wall hernia surg. Denies: Hx Bowel Surgery, Hx Section, Hx Colostomy, Hx Coronary Artery Bypass Graft, Hx Gastric Bypass Surgery, Hx Herniorrhaphy, Hx Mastectomy, Hx Pacemaker, Hx Tonsillectomy, Hx Tubal Ligation - Immunizations Hx Diphtheria, Pertussis, Tetanus Vaccination: Yes History of Influenza Vaccine for 01/2017 - 06/2017 Season: Refused Physical Exam - Vital signs Vitals: Temp Pulse Resp BP Pulse Ox 98.8 F 87 16 142/93 H 100 03/23/18 18:46 03/23/18 18:46 03/23/18 18:46 03/23/18 18:46 03/23/18 18:46 Course - Vital Signs Vital signs: Temp Pulse Resp BP Pulse Ox 98.8 F 87 16 142/93 H 100 03/23/18 18:46 03/23/18 18:46 03/23/18 18:46 03/23/18 18:46 03/23/18 18:46 Doctor's Discharge - Discharge Referrals: LIU MASON DO [Primary Care Provider] - Follow up as needed
[2018-03-23 19:41] LABS: ABSOLUTE EOSINOPHILS # (AUTO) 0.1 10^3/uL (0.0-0.6); ABSOLUTE LYMPHOCYTES (AUTO) 1.2 10^3/uL (0.5-4.7); ABSOLUTE MONOCYTES (AUTO) 0.3 10^3/uL (0.1-1.4); ABSOLUTE NEUT (AUTO) 2.2 10^3/uL (1.7-8.2); BASOPHILS % (AUTO) 0.7 % (0-2); EOSINOPHILS % (AUTO) 1.7 % (0-6); HEMATOCRIT 39.3 % (36.0-47.0); HEMOGLOBIN 13.8 g/dL (12.0-15.5); LYMPHOCYTES % (AUTO) 31.8 % (13-45); MEAN CORPUSCULAR HEMOGLOBIN 30.6 pg (27.0-33.4); MEAN CORPUSCULAR HGB CONC 35.1 g/dL (32.0-36.0); MEAN CORPUSCULAR VOLUME 87 fl (80-97); PLATELET COUNT 222 10^3/uL (150-450); RED CELL DISTRIBUTION WIDTH 13.4 % (11.5-14.0); SEGMENTED NEUTROPHILS % (AUTO) 57.8 % (42-78); TOTAL CELLS COUNTED % (AUTO) 100 %; WHITE BLOOD COUNT 3.7 10^3/uL (4.0-10.5)
[2018-03-23 19:59] LABS: ALANINE AMINOTRANSFERASE 16 U/L (9-52); ALBUMIN 4.9 g/dL (3.5-5.0); ALKALINE PHOSPHATASE 63 U/L (38-126); ANION GAP 14 (5-19); ASPARTATE AMINO TRANSFERASE 31 U/L (14-36); BILIRUBIN,DIRECT 0.2 mg/dL (0.0-0.4); BILIRUBIN,TOTAL 0.4 mg/dL (0.2-1.3); BLOOD UREA NITROGEN 10 mg/dL (7-20); CARBON DIOXIDE 28 mmol/L (22-30); CHLORIDE 103 mmol/L (98-107); GLUCOSE 101 mg/dL (75-110); LIPASE 91.2 U/L (23-300); POTASSIUM 3.6 mmol/L (3.6-5.0); SODIUM 144.9 mmol/L (137-145); TOTAL PROTEIN 8.4 g/dL (6.3-8.2)
--- NOTE | 2018-03-23 20:06 | RADIOLOGY REPORT (SQ) ---
EXAM DESCRIPTION: ACUTE ABDOMEN SERIES COMPLETED DATE/TIME: 03/23/2018 7:41 pm REASON FOR STUDY: Acute abdominal pain COMPARISON: 01/12/2018 NUMBER OF VIEWS: Three views. TECHNIQUE: Frontal chest, supine abdomen and upright/decubitus abdomen radiographic images acquired. LIMITATIONS: None. FINDINGS: CHEST: Lungs clear of infiltrates. FREE AIR: None. No abnormal gas collections. BOWEL GAS PATTERN: Nonobstructive pattern. No dilated loops or air fluid levels. CALCIFICATIONS: No suspicious calcifications. HARDWARE: Right upper quadrant clips. SOFT TISSUES: No gross mass or suggestion of organomegaly. BONES: No acute fracture. No worrisome bone lesions. OTHER: No other significant finding. IMPRESSION: NO RADIOGRAPHIC EVIDENCE FOR ACUTE ABDOMINAL DISEASE. TECHNICAL DOCUMENTATION: JOB ID: [id number] [employer]- All Rights Reserved Reading location - IP/workstation name: [email or web address]
[2018-03-23] MEDS ORDERED: DIPHENHYDRAMINE HCL 50 MG/ML VIAL IV ONE (20:28)
[2018-03-23] MEDS ORDERED: METHYLPREDNISOLONE INJ 125 MG/2 ML SDV IV ONE (20:29)
[2018-03-23] MEDS ORDERED: FAMOTIDINE INJ/PF 20 MG/2 ML SDV IV ONE (20:29)
--- NOTE | 2018-03-23 20:42 | ER Document Report ---
ED GI/ - General Chief Complaint: Abdominal Pain >50 Stated Complaint: NAUSEA,VOMITING,ABDOMINAL PAIN Time Seen by Provider: 03/23/18 19:05 Notes: Patient is a 63-year-old female presenting to the emergency department with generalized sharp intermittent abdominal pain starting this morning. Patient states the abdominal pain has increased throughout the day which is why she presents to the emergency room. Patient states she took her home blood pressure and it was 187/90 and she had a heart rate of 70s 6. Patient states she is also nauseated and has had dry heaving. Patient states she had one episode of diarrhea while in the emergency room states it was green in nature. Patient denies any blood in her stool. Patient denies headache, chest pain, shortness of breath, URI symptoms, fever. Past medical history: Inguinal hernia repair, GERD, hypertension, hyperlipidemia , arthritis Medications: Meclizine, Carafate, Linzess, nitro, Reglan, evista, eszoplolone, voltaren Allergies: IV dye, patient states if she is treated with Benadryl prior to the IV dye she does not get hives. Surgical history: Hysterectomy, cholecystectomy, appendectomy, partial colon resection. TRAVEL OUTSIDE OF THE [place] IN LAST 30 DAYS: No - Related Data Allergies/Adverse Reactions: IVP dye Allergy (Intermediate, Uncoded 03/23/18 18:36) rash Past Medical History - General Information source: Patient - Social History Smoking Status: Never Smoker Frequency of alcohol use: None Drug Abuse: None Lives with: Family Family History: CAD, CVA, Malignancy Patient has suicidal ideation: No Patient has homicidal ideation: No - Past Medical History Cardiac Medical History: Reports: Hx Hypercholesterolemia, Hx Hypertension Pulmonary Medical History: Reports: Hx Pneumonia Denies: Hx Asthma, Hx Bronchitis, Hx COPD, Hx Respiratory Failure, Hx Sleep Apnea, Hx Tuberculosis Neurological Medical History: Reports: Hx Cerebrovascular Accident - Patient reports "mini stroke" Endocrine Medical History: Denies: Hx Diabetes Mellitus Type 1, Hx Diabetes Mellitus Type 2 Renal/ Medical History: Reports: Hx Kidney Stones. Denies: Hx End Stage Renal Disease, Hx Ovarian Cysts, Hx Peritoneal Dialysis Malignancy Medical History: Denies: Hx Breast Cancer, Hx Cervical Cancer, Hx Leukemia, Hx Lung Cancer, Hx Ovarian Cancer GI Medical History: Reports: Hx Gastroesophageal Reflux Disease, Hx Hiatal Hernia, Hx Ulcer. Denies: Hx Crohn's Disease, Hx Irritable Bowel, Hx Liver Failure, Hx Pancreatitis Musculoskeletal Medical History: Reports Hx Arthritis, Denies Hx Fibromyalgia, Denies Hx Multiple Sclerosis, Denies Hx Muscular Dystrophy Psychiatric Medical History: Reports: Hx Depression, Hx Post Traumatic Stress Disorder Denies: Hx Bipolar Disorder, Hx Dementia, Hx Schizophrenia Traumatic Medical History: Reports: Hx Fractures - left wrist Infectious Medical History: Denies: Hx HIV Past Surgical History: Reports: Hx Adenoidectomy, Hx Appendectomy, Hx Cholecystectomy, Hx Hysterectomy, Hx Orthopedic Surgery - carpal tunnel, Other - Sigmoid colectomy, rectopexy Dr. Fowler 2013; abdominal wall hernia surg. Denies: Hx Bowel Surgery, Hx Section, Hx Colostomy, Hx Coronary Artery Bypass Graft, Hx Gastric Bypass Surgery, Hx Herniorrhaphy, Hx Mastectomy, Hx Pacemaker, Hx Tonsillectomy, Hx Tubal Ligation - Immunizations Hx Diphtheria, Pertussis, Tetanus Vaccination: Yes Review of Systems - Review of Systems Constitutional: denies: Chills, Fever EENT: See HPI Cardiovascular: See HPI Respiratory: See HPI Gastrointestinal: See HPI Genitourinary: denies: Burning, Dysuria Female Genitourinary: denies: Vaginal discharge Musculoskeletal: No symptoms reported Skin: No symptoms reported Hematologic/Lymphatic: No symptoms reported Neurological/Psychological: No symptoms reported Physical Exam - Vital signs Vitals: Temp Pulse Resp BP Pulse Ox 98.8 F 87 16 142/93 H 100 03/23/18 18:46 03/23/18 18:46 03/23/18 18:46 03/23/18 18:46 03/23/18 18:46 - Notes Notes: GENERAL: Alert, interacts well. Generalized grimace to patient space, holding her lower abdominal area generalized tenderness HEAD: Normocephalic, atraumatic. EYES: Pupils equal, round, and reactive to light. Extraocular movements intact. ENT: Oral mucosa moist, tongue midline. NECK: Full range of motion. Supple. Trachea midline. LUNGS: Clear to auscultation bilaterally, no wheezes, rales, or rhonchi. No respiratory distress. HEART: Regular rate and rhythm. No murmur ABDOMEN: Soft, Non-distended. Bowel sounds present in all 4 quadrants. Entire abdomen upon palpation. EXTREMITIES: Moves all 4 extremities spontaneously. No edema, normal radial and dorsalis pedis pulses bilaterally. No cyanosis. BACK: no cervical, thoracic, lumbar midline tenderness. No saddle anesthesia, normal distal neurovascular exam. NEUROLOGICAL: Alert and oriented x3. Normal speech. cranial nerves II through XII grossly intact PSYCH: Normal affect, normal mood. SKIN: Warm, dry, normal turgor. No rashes or lesions noted. Course - Re-evaluation Re-evalutation: 03/24/18 00:27 Discussed at length with patient at bedside her CT results. Her CT shows no signs of bowel obstruction, bleeding, or any gastrointestinal abnormalities at this time. Patient initially states her abdominal pain was better and then states she thinks it is coming back. Patient states she gets very overwhelmed with all the medications that she has been prescribed. States she is supposed to be taking Carafate and Reglan for her abdominal pain. States a month ago she got a EGD and a colonoscopy which she states her optical instrument assembly supervisor told her they were both negative. Patient is unaware of the name of her optical instrument assembly supervisor. Those reports are not within our system. Patient states she would like a referral to a new optical instrument assembly supervisor because she does not like the optical instrument assembly supervisor that she was currently seeing. Discussed at length with patient need to continue Carafate and Reglan for her abdominal pain and nausea feeling. Patient then requests that we give her a dose of Carafate in the emergency room. Patient states she has plenty of Reglan at home and she does not need a refill. It is also noted in patient's medication back that she also has a full bottle of Carafate. Patient denies any blood or melena stools, states stool is green in nature. No need for a guaiac stool at this time. In reviewing past patient visits she was seen here for small bowel obstruction and pancreatitis. Her CT reveals no signs of small bowel obstruction and her lipase is 91.2. Patient's generalized abdominal pain likely due to her acid indigestion. Discussed her need to follow-up with gastroenterology, new gastroenterology phone numbers will be provided in this paperwork. - Vital Signs Vital signs: Temp Pulse Resp BP Pulse Ox 97.9 F 83 18 158/96 H 100 03/23/18 21:52 03/23/18 21:52 03/23/18 21:52 03/23/18 21:52 03/23/18 18:46 - Laboratory Result Diagrams: 03/23/18 19:21 03/23/18 19:21 Laboratory results interpreted by me: 03/23/18 03/23/18 19:21 19:21 WBC 3.7 L Total Protein 8.4 H Discharge - Discharge Clinical Impression: Abdominal pain Qualifiers: Abdominal location: generalized Qualified Code(s): R10.84 - Generalized abdominal pain GERD (gastroesophageal reflux disease) Qualifiers: Esophagitis presence: esophagitis presence not specified Qualified Code(s): K21.9 - Gastro-esophageal reflux disease without esophagitis Condition: Stable Disposition: HOME, SELF-CARE Instructions: Abdominal Pain ([facility]), Antinausea Medication ([facility]) Additional Instructions: As we discussed you need to continue to take your Reglan and Carafate as prescribed. Please make sure you follow-up with a optical instrument assembly supervisor in the next 24-48 hours. Please return to the emergency room for any other concerning symptoms. Referrals: LIU MASON DO [Primary Care Provider] - Follow up as needed FARTUN WINSLOW MD [ACTIVE STAFF] - Follow up as needed
--- NOTE | 2018-03-23 22:58 | RADIOLOGY REPORT (SQ) ---
EXAM DESCRIPTION: CT ABDOMEN PELVIS WITH IV CONTRAST COMPLETED DATE/TME: 03/23/2018 00:00 CLINICAL HISTORY: 63 years Female, abd pain Comparison:01/13/2018 Technique: IV and oral contrast. Coronal and sagittal reformat. This exam was performed according to our departmental dose-optimization program, which includes automated exposure control, adjustment of the mA and/or kV according to patient size and/or use of iterative reconstruction technique. [facility]: Dose Right [facility]: CareDose [facility]: Dose Right [facility]: Teradose 4D [facility]: Smart Bunker Mode LIMITATIONS: None Findings: No ascites. No pneumoperitoneum. No bowel obstruction. No hydronephrosis or hydroureter. No renal/ureteral stone. Atherosclerosis. Renal scar/atrophy. Bifid right kidney. Appendectomy. Cholecystectomy. Inferior thorax, liver, pancreas, spleen, adrenals, renal system, gastrointestinal tract, pelvic organs, lymphatics, vasculature, and musculoskeleton appear otherwise unremarkable. IMPRESSION: No acute findings.
[2018-03-24 00:05] LABS: APPEARANCE,URINE CLEAR; BILIRUBIN,URINE NEGATIVE (NEGATIVE); COLOR,URINE STRAW; GLUCOSE, URINE NEGATIVE (NEGATIVE); KETONES,URINE NEGATIVE (NEGATIVE); LEUKOCYTE ESTERASE,URINE NEGATIVE (NEGATIVE); NITRITE,URINE NEGATIVE (NEGATIVE); PROTEIN,URINE NEGATIVE (NEGATIVE); URINE SPECIFIC GRAVITY 1.006; UROBILINOGEN,URINE NEGATIVE mg/dL (<2.0)
[2018-03-24] MEDS ORDERED: SUCRALFATE 1 GM TABLET PO ONE (00:25)
[2018-03-24 00:40] VITALS: BP 138/74
== END 2018-03-24 01:35 | disposition home or self-care (01) ==
LOC: ER 18:35
DX: K21.9 Gastro-esophageal reflux disease without esophagitis (principal); R10.84 Generalized abdominal pain; R11.2 Nausea with vomiting, unspecified; R19.7 Diarrhea, unspecified; R19.5 Other fecal abnormalities; I10 Essential (primary) hypertension; M19.90 Unspecified osteoarthritis, unspecified site; Z79.899 Other long term (current) drug therapy; Z79.1 Long term (current) use of non-steroidal anti-inflammatories (NSAID); Z91.041 Radiographic dye allergy status; Z90.49 Acquired absence of other specified parts of digestive tract; Z87.19 Personal history of other diseases of the digestive system
CPT/HCPCS: 96376; 99285; 96361; 96374; 96375; 36415; 83690; 85025; 80053; 81001; 84484; 74022; 74177; J1200; J3010; J2930; J3490; J2405; J7030; S0028

== ENCOUNTER → 2018-04-13 | Outpatient (CLI) | payer MEDICAID ==
[~2018-04-13] MED LIST changes: -AMINOPHYLLINE INJ/PF 250 MG/10 ML SDV IV ONE; +DIAZEPAM 5 MG TABLET ONE; -REGADENOSON INJ 0.4 MG/5 ML DISP.SYRIN IV ONE
--- NOTE | 2018-04-13 13:42 | RADIOLOGY REPORT (SQ) ---
EXAM DESCRIPTION: MRI HEAD COMBO COMPLETED DATE/TIME: 04/13/2018 1:20 pm REASON FOR STUDY: MIGRAINE WITHOUT STATUS MIGRAINOSUS, NOT INTRACTABLE G43.909 MIGRAINE, UNSP, NOT INTRACTABLE, WITHOUT STATUS MIGR COMPARISON: None. TECHNIQUE: Multiplanar imaging includes noncontrasted T1, T2, FLAIR, diffusion with ADC map and post gadolinium contrast T1 sequences. Images stored on PACS. CONTRAST TYPE AND DOSE: 10 mL Dotarem. RENAL FUNCTION: GFR > 60. LIMITATIONS: None. FINDINGS: ANATOMY: No anomalies. Normal vascular flow voids. Pituitary fossa normal. CSF SPACES: Normal in size and contour. No hemorrhage. CEREBRUM: No MR evidence of acute ischemic change, acute intracranial hemorrhage, mass effect, or mid line shift. Spotty foci of increased FLAIR/ T2 white matter signal in the bifrontal, biparietal, and bitemporal regions. This could represent minimal small vessel ischemic change or gliosis along andre vascular spaces. Old demyelinating process could have this appearance. Small foci of increased whit e matter signal could also be seen in patients with chronic headaches. POSTERIOR FOSSA: No signal alteration. No hemorrhage. No edema, masses, or mass effect. Internal antonio tory canals, cerebellopontine angles, mastoids normal. No enhancing lesions. No abnormal enhancement post contrast. DIFFUSION IMAGING: Negative for acute or subacute infarction. ORBITS: No masses. Globes post cataract surgery bilaterally PARANASAL SINUSES: No fluid levels. Mucosa normal. OTHER: No other significant finding. IMPRESSION: Few nonspecific foci of increased white matter signal on FLAIR/ T2 likely representing c hronic small vessel ischemic change. No acute findings. No brain parenchymal masses or enhancement. EVIDENCE OF ACUTE STROKE: NO. TECHNICAL DOCUMENTATION: JOB ID: [id number] [employer]- All Rights Reserved Reading location - IP/workstation name: [email or web address]
== END ==
LOC: RAD 10:40
PROVIDERS: ATTEND Otolaryngology
DX: G43.909 Migraine, unspecified, not intractable, without status migrainosus (principal)
CPT/HCPCS: 70553; A9576; J3490

== ENCOUNTER 2018-05-07 17:42 | Emergency (ER) | payer MEDICAID ==
--- NOTE | 2018-05-07 18:03 | ER Document Report ---
ED General - General Chief Complaint: Chest Pain Stated Complaint: CHEST PAIN Time Seen by Provider: 05/07/18 18:02 Notes: Patient is a 63-year-old female that presents to the emergency department for chief complaint of chest pain. Patient states that she started having left- sided chest pain radiating to her arm, with some tingling associated with it and associated shortness of breath and nausea, this pain started on and off for the past 4 days, but it persisted today around noon, so she decided to call EMS, she was given nitroglycerin and aspirin without much relief of her pain, she states that the pain seems to be worse with movement of her left arm, and the pain is still present at this time. She currently rates her pain as a 6 out of 10. She has had pain like this in the past, denies history of [place] or CAD. She does have a history of hypertension and hyperlipidemia, and a strong family history of coronary disease, 2 of her sisters have had triple bypass. Denies smoking history, or recent stress testing. Past Medical History: Hypertension, hyperlipidemia Past Surgical History: Cholecystectomy Social History: Denies tobacco, alcohol or drug use, her primary care physician is Dr. Kyle Family History: Reviewed and noncontributory for presenting illness Allergies: Reviewed, see documented allergy list. REVIEW OF SYSTEMS: Other than noted above, the 12 point review of systems was reviewed with the patient and were negative, all pertinent findings are included in the HPI. PHYSICAL EXAMINATION: Vital signs reviewed, nursing noted reviewed. GENERAL: Elderly female, appears uncomfortable on exam HEAD: Atraumatic, normocephalic. EYES: Eyes appear normal, extraocular movements intact, sclera anicteric, conju nctiva are normal. ENT: nares patent, oropharynx clear without exudates. Moist mucous membranes. NECK: Normal range of motion, supple without lymphadenopathy LUNGS: Breath sounds clear to auscultation bilaterally and equal. No wheezes rales or rhonchi. There is left-sided chest wall tenderness, but this is a different pain than the patient is describing to me on history taking. HEART: Regular rate and rhythm without murmurs ABDOMEN: Soft, mild epigastric tenderness with palpation, normoactive bowel sounds. No rebound, guarding, or rigidity. No masses appreciated. EXTREMITIES: Nontender, good range of motion, no pitting or edema. NEUROLOGICAL: No focal neurological deficits. Moves all extremities spontaneously Motor and sensory grossly intact on exam. PSYCH: Normal mood, normal affect. SKIN: Warm, Dry, normal turgor, no rashes or lesions noted on exposed skin TRAVEL OUTSIDE OF THE [place] IN LAST 30 DAYS: No - Related Data Allergies/Adverse Reactions: IVP dye Allergy (Intermediate, Uncoded 03/23/18 18:36) rash Past Medical History - Social History Smoking Status: Never Smoker Family History: CAD, CVA, Malignancy - Past Medical History Cardiac Medical History: Reports: Hx Hypercholesterolemia, Hx Hypertension Pulmonary Medical History: Reports: Hx Pneumonia Denies: Hx Asthma, Hx Bronchitis, Hx COPD, Hx Respiratory Failure, Hx Sleep Apnea, Hx Tuberculosis Neurological Medical History: Reports: Hx Cerebrovascular Accident - Patient reports "mini stroke" Endocrine Medical History: Denies: Hx Diabetes Mellitus Type 1, Hx Diabetes Mellitus Type 2 Renal/ Medical History: Reports: Hx Kidney Stones. Denies: Hx End Stage Renal Disease, Hx Ovarian Cysts, Hx Peritoneal Dialysis Malignancy Medical History: Denies: Hx Breast Cancer, Hx Cervical Cancer, Hx Leukemia, Hx Lung Cancer, Hx Ovarian Cancer GI Medical History: Reports: Hx Gastroesophageal Reflux Disease, Hx Hiatal Hernia, Hx Ulcer. Denies: Hx Crohn's Disease, Hx Irritable Bowel, Hx Liver Failure, Hx Pancreatitis Musculoskeletal Medical History: Reports Hx Arthritis, Denies Hx Fibromyalgia, Denies Hx Multiple Sclerosis, Denies Hx Muscular Dystrophy Psychiatric Medical History: Reports: Hx Depression, Hx Post Traumatic Stress Disorder Denies: Hx Bipolar Disorder, Hx Dementia, Hx Schizophrenia Traumatic Medical History: Reports: Hx Fractures - left wrist Infectious Medical History: Denies: Hx HIV Past Surgical History: Reports: Hx Adenoidectomy, Hx Appendectomy, Hx Cholecystectomy, Hx Hysterectomy, Hx Orthopedic Surgery - carpal tunnel, Other - Sigmoid colectomy, rectopexy Dr. Fowler 2013; abdominal wall hernia surg. Denies: Hx Bowel Surgery, Hx Section, Hx Colostomy, Hx Coronary Artery Bypass Graft, Hx Gastric Bypass Surgery, Hx Herniorrhaphy, Hx Mastectomy, Hx Pacemaker, Hx Tonsillectomy, Hx Tubal Ligation - Immunizations Hx Diphtheria, Pertussis, Tetanus Vaccination: Yes Physical Exam - Vital signs Vitals: Pulse Ox 100 05/07/18 18:02 Course - Re-evaluation Re-evalutation: Patient seen and examined vital signs reviewed. Laboratory data and imaging were ordered as appropriate for the patient's presenting symptoms and complaint, with consideration of any critical or life threatening conditions that may be associated with their obtained history and exam as noted above. Patient was treated with aspirin and nitro by EMS, patient was also given morphine and Zofran for her pain and nausea, and finally GI cocktail which did give her some relief, additionally added Pepcid, and Protonix to help with her pain. Results were reviewed when available and demonstrated negative initial troponin testing EKG did not demonstrate ischemic changes, chest x-ray was negative, renal function normal, did have mild hypokalemia, and was given replacement with p.o. potassium chloride. The patient was re-evaluated and was improved after treatments as above, second troponin was negative, I discussed this with the hospitalist, Dr. Ortega, who stated that the patient will just need a third troponin, and cardiac stress testing and patient is unavailable on the weekend, patient could have outpatient stress testing, if negative troponin came back, discussed this with the patient, she was agreeable to this plan of care, I feel that her etiology is most likely GI related, she got more relief with GI cocktail, and Pepcid, as opposed to nitro, and aspirin Evaluation was most consistent with chest pain, third troponin will be signed out to my colleague Dr. Cedeño, if negative, patient was discharged to follow-up with cardiology, and given referral for stress testing. She is also given a prescription for omeprazole to start taking for 2 weeks. Three serial troponins negative, patient discharged to home, with follow-up with cardiology. *Note is created using voice recognition software and may contain spelling, syntax or grammatical errors. Laboratory 05/07/18 05/07/18 05/07/18 18:10 18:10 18:10 WBC 4.5 RBC 4.42 Hgb 13.4 Hct 38.4 MCV 87 MCH 30.4 MCHC 35.0 RDW 12.8 Plt Count 248 Seg Neutrophils % 62.4 Lymphocytes % 29.1 Monocytes % 6.2 Eosinophils % 1.3 Basophils % 1.0 Absolute Neutrophils 2.8 Absolute Lymphocytes 1.3 Absolute Monocytes 0.3 Absolute Eosinophils 0.1 Absolute Basophils 0.0 Sodium 137.7 Potassium 3.3 L Chloride 101 Carbon Dioxide 27 Anion Gap 10 BUN 12 Creatinine 0.62 Est GFR ( Amer) > 60 Est GFR (Non-Af Amer) > 60 Glucose 110 Calcium 9.9 Total Bilirubin 0.7 Direct Bilirubin 0.2 Neonat Total Bilirubin Not Reportable Neonat Direct Bilirubin Not Reportable Neonat Indirect Bili Not Reportable AST 56 H ALT 41 Alkaline Phosphatase 82 Creatine Kinase 55 CK-MB (CK-2) 0.63 Troponin I < 0.012 Total Protein 7.9 Albumin 4.9 Chest X-Ray 05/07/18 17:56 IMPRESSION: NO ACUTE FINDINGS. - Vital Signs Vital signs: Temp Pulse Resp BP Pulse Ox 98.2 F 72 10 L 117/81 98 05/08/18 01:01 05/07/18 18:03 05/08/18 01:00 05/08/18 01:01 05/08/18 01:01 - Laboratory Result Diagrams: 05/07/18 18:10 05/07/18 18:10 Laboratory results interpreted by me: 05/07/18 18:10 Potassium 3.3 L AST 56 H - EKG Interpretation by Me Additional EKG results interpreted by me: EKG demonstrates sinus rhythm with a ventricular rate of 89 bpm, normal axis, normal intervals, no evidence of acute ischemia this is compared with prior EKG with no significant change. Electronic interpretation of this EKG was atrial fibrillation, but there are in fact P waves, with every QRS, and is in fact sinus rhythm. Discharge - Discharge Clinical Impression: Chest pain Qualifiers: Chest pain type: unspecified Qualified Code(s): R07.9 - Chest pain, unspecified Condition: Stable Disposition: HOME, SELF-CARE Instructions: Chest Pain of Unclear Cause ([facility]), Reflux Disease (GERD) ([facility]) Additional Instructions: Please return to the emergency department if you have any worsening, or concern of your symptoms. Please return to the emergency department if you develop chest pain, difficulty breathing, severe abdominal pain, or ongoing vomiting. Please follow-up with your primary care physician in 2-3 days and any other recommended physicians. If prescribed, take all medications as directed. If you have any questions or concerns do not hesitate to return the emergency department for evaluation. Prescriptions: RX: Omeprazole 40 mg PO DAILY #14 capsule. Referrals: LIU KYLE DO [Primary Care Provider] - Follow up as needed SHELLY MARIA MD [ACTIVE STAFF] - Follow up in 3-5 days
--- NOTE | 2018-05-07 18:33 | EKG REPORT ---
SEVERITY:- ABNORMAL ECG - SINUS RHYTHM BORDERLINE T ABNORMALITIES, INFERIOR LEADS : Confirmed by: Jose M Rome 07-May-2018 18:32:41
[2018-05-07 18:41] LABS: ABSOLUTE EOSINOPHILS # (AUTO) 0.1 10^3/uL (0.0-0.6); ABSOLUTE LYMPHOCYTES (AUTO) 1.3 10^3/uL (0.5-4.7); ABSOLUTE MONOCYTES (AUTO) 0.3 10^3/uL (0.1-1.4); ABSOLUTE NEUT (AUTO) 2.8 10^3/uL (1.7-8.2); EOSINOPHILS % (AUTO) 1.3 % (0-6); HEMATOCRIT 38.4 % (36.0-47.0); HEMOGLOBIN 13.4 g/dL (12.0-15.5); LYMPHOCYTES % (AUTO) 29.1 % (13-45); MEAN CORPUSCULAR HEMOGLOBIN 30.4 pg (27.0-33.4); MEAN CORPUSCULAR VOLUME 87 fl (80-97); MONOCYTES % (AUTO) 6.2 % (3-13); PLATELET COUNT 248 10^3/uL (150-450); RED BLOOD COUNT 4.42 10^6/uL (3.72-5.28); RED CELL DISTRIBUTION WIDTH 12.8 % (11.5-14.0); SEGMENTED NEUTROPHILS % (AUTO) 62.4 % (42-78); TOTAL CELLS COUNTED % (AUTO) 100 %; WHITE BLOOD COUNT 4.5 10^3/uL (4.0-10.5)
[2018-05-07] MEDS ORDERED: ONDANSETRON HCL INJ/PF 4 MG/2 ML SDV IV ONE (18:55)
[2018-05-07] MEDS ORDERED: MORPHINE SULFATE 10 MG/ML INJ IV ONE (18:55)
--- NOTE | 2018-05-07 19:02 | RADIOLOGY REPORT (SQ) ---
EXAM DESCRIPTION: CHEST SINGLE VIEW COMPLETED DATE/TIME: 05/07/2018 6:52 pm REASON FOR STUDY: Chest Pain COMPARISON: 03/17/2018 TECHNIQUE: Single frontal radiographic view of the chest acquired. NUMBER OF VIEWS: One view. LIMITATIONS: None. FINDINGS: LUNGS AND PLEURA: No pneumothorax. No consolidation or pleural effusion. MEDIASTINUM AND HILAR STRUCTURES: Stable. HEART AND VASCULAR STRUCTURES: Stable. BONES: No acute findings. HARDWARE: None in the chest. OTHER: No other significant finding. IMPRESSION: NO ACUTE FINDINGS. TECHNICAL DOCUMENTATION: JOB ID: [id number] [place]-72 2010 [employer]- All Rights Reserved Reading location - IP/workstation name: [email or web address]
[2018-05-07 19:05] LABS: ALANINE AMINOTRANSFERASE 41 U/L (9-52); ALBUMIN 4.9 g/dL (3.5-5.0); ALKALINE PHOSPHATASE 82 U/L (38-126); ANION GAP 10 (5-19); ASPARTATE AMINO TRANSFERASE 56 U/L (14-36); BILIRUBIN,DIRECT 0.2 mg/dL (0.0-0.4); BILIRUBIN,TOTAL 0.7 mg/dL (0.2-1.3); BLOOD UREA NITROGEN 12 mg/dL (7-20); CALCIUM 9.9 mg/dL (8.4-10.2); CARBON DIOXIDE 27 mmol/L (22-30); CHLORIDE 101 mmol/L (98-107); CREATINE KINASE 55 U/L (30-135); GLUCOSE 110 mg/dL (75-110); POTASSIUM 3.3 mmol/L (3.6-5.0); SODIUM 137.7 mmol/L (137-145); TOTAL PROTEIN 7.9 g/dL (6.3-8.2)
[2018-05-07 19:16] LABS: CREATINE KINASE MB 0.63 ng/mL (<4.55); TROPONIN I < 0.012 ng/mL
[2018-05-07] MEDS ORDERED: POTASSIUM CHLORIDE 10 MEQ CAPSULE.ER PO ONE (19:26)
[2018-05-07] MEDS ORDERED: FENTANYL CITRATE INJ/PF 100 MCG/2 ML AMPUL IV ONE (20:17)
[2018-05-07] MEDS ORDERED: MAG HYDROX/AL HYDROX/SIMETH SUSP 30 ML UDCUP PO ONE (20:17)
[2018-05-07] MEDS ORDERED: LIDOCAINE 2% VISCOUS SOLN 20 ML UDCUP PO ONE (20:17)
[2018-05-07] MEDS ORDERED: METOCLOPRAMIDE HCL ORAL SOLN 10 MG/10 ML UDCUP PO ONE (20:17)
[2018-05-07] MEDS ORDERED: FAMOTIDINE INJ/PF 20 MG/2 ML SDV IV ONE (22:00)
[2018-05-07] MEDS ORDERED: PANTOPRAZOLE SODIUM 40 MG VIAL IV ONE (22:01)
[2018-05-08] MEDS ORDERED: MORPHINE SULFATE 10 MG/ML INJ IV ONE (00:56)
[2018-05-08] MEDS ORDERED: ONDANSETRON HCL INJ/PF 4 MG/2 ML SDV IV ONE (00:56)
[2018-05-08 01:24] VITALS: BP 117/81
== END 2018-05-08 02:08 | disposition home or self-care (01) ==
LOC: ER 17:42
DX: R07.9 Chest pain, unspecified (principal); E87.6 Hypokalemia; R20.2 Paresthesia of skin; R06.02 Shortness of breath; R11.0 Nausea; I10 Essential (primary) hypertension; Z82.49 Family history of ischemic heart disease and other diseases of the circulatory system; Z91.041 Radiographic dye allergy status
CPT/HCPCS: 93005; 96376; 99285; 96374; 96375; 36415; 82553; 82550; 83690; 85025; 80053; 84484; 71045; 93010; J3010; J3490 ×3; J2270 ×2; S0164; J2405 ×2; S0028

== ENCOUNTER → 2018-05-25 | Outpatient (CLI) | payer MEDICAID ==
--- NOTE | 2018-05-25 15:44 | RADIOLOGY REPORT (SQ) ---
EXAM DESCRIPTION: CT ORBIT/SELLA WITHOUT COMPLETED DATE/TIME: 05/25/2018 2:42 pm REASON FOR STUDY: H73.892 OTHER SPECIFIED DISORDERS OF TYMPANIC MEMBRANE, LEFT EAR H73.892 OTHER SP ECIFIED DISORDERS OF TYMPANIC MEMBRANE, LEFT COMPARISON: MRI brain 04/13/2018 TECHNIQUE: Noncontrasted thin section axial images through the temporal bones and skull base were ob tained and reviewed at bone windows and bone algorithm with coronal and sagittal reconstructions. All CT scanners at this facility use dose modulation, iterative reconstruction, and/or weight based d osing when appropriate to reduce radiation dose to as low as reasonably achievable (ALARA). [facility]: Dose Right [facility]: CareDose [facility]: Dose Right [facility]: Teradose 4D [facility]: [place] RADIATION DOSE: 10.9 mGy. LIMITATIONS: None. FINDINGS: RIGHT SIDE: EXTERNAL AUDITORY CANAL: Widely patent. TYMPANIC MEMBRANE: No masses, thickening or medial retraction. OSSICLES AND MIDDLE EAR CAVITY: Normal ossicles. No middle ear masses or fluid. INNER EAR STRUCTURES: Normal vestibule and cochlea. Normal aqueducts. INTERNAL AUDITORY CANAL: Normal bony canal without narrowing or widening. No calcified or ossified m asses. TEMPOROMANDIBULAR JOINT: Normal. MASTOID AIR CELLS: Clear. LEFT SIDE: EXTERNAL AUDITORY CANAL: Widely patent. TYMPANIC MEMBRANE: No masses, thickening or medial retraction. OSSICLES AND MIDDLE EAR CAVITY: Normal ossicles. No middle ear masses or fluid. INNER EAR STRUCTURES: Normal vestibule and cochlea. Normal aqueducts. INTERNAL AUDITORY CANAL: Normal bony canal without narrowing or widening. No calcified or ossified m asses. TEMPOROMANDIBULAR JOINT: Normal. MASTOID AIR CELLS: There is fluid in the mastoid air cells on the left side best shown on coronal rec onstruction image 198. CENTRAL SKULL BASE: Normal foramina. No lytic or blastic lesions. INFERIOR BRAIN: Limited view. No acute findings. LIMITED VIEW OF PARANASAL SINUSES IN THE FIELD OF VIEW: Normal. IMPRESSION: Fluid in the left mastoid air cells sparing the middle ear cavity. Otherwise unremarkable CT exam of the bilateral temporal bones. TECHNICAL DOCUMENTATION: JOB ID: [id number] Quality ID # [id number]: Final reports with documentation of one or more dose reduction techniques (e.g., Au tomated exposure control, adjustment of the mA and/or kV according to patient size, use of iterative reconstruction technique) 2010 [employer] [place]- All Rights Reserved Reading location - IP/workstation name: [email or web address]
== END ==
LOC: RAD 14:18
PROVIDERS: ATTEND Otolaryngology
DX: H73.892 Other specified disorders of tympanic membrane, left ear (principal)
CPT/HCPCS: 70480

== ENCOUNTER 2018-06-30 17:56 | Inpatient (IN) | payer MEDICAID ==
[2018-06-30 19:40] LABS: APPEARANCE,URINE CLEAR; BILIRUBIN,URINE NEGATIVE (NEGATIVE); COLOR,URINE YELLOW; GLUCOSE, URINE NEGATIVE (NEGATIVE); KETONES,URINE NEGATIVE (NEGATIVE); LEUKOCYTE ESTERASE,URINE NEGATIVE (NEGATIVE); NITRITE,URINE NEGATIVE (NEGATIVE); PROTEIN,URINE NEGATIVE (NEGATIVE); URINE SPECIFIC GRAVITY 1.006; UROBILINOGEN,URINE NEGATIVE mg/dL (<2.0)
[2018-06-30] MEDS ORDERED: ONDANSETRON HCL INJ/PF 4 MG/2 ML SDV IV ONE (20:17)
[2018-06-30] MEDS ORDERED: MORPHINE SULFATE 10 MG/ML INJ IV ONE (20:17)
[2018-06-30] MEDS ORDERED: DIPHENHYDRAMINE HCL 50 MG/ML VIAL IV ONE (20:18)
[2018-06-30] MEDS ORDERED: NORMAL SALINE 1000 ML 1,000 ML IV ONE (20:24)
--- NOTE | 2018-06-30 20:24 | ER Document Report ---
ED Medical Screen (RME) - General Chief Complaint: Abdominal Pain >50 Stated Complaint: ABDOMINAL PAIN Time Seen by Provider: 06/30/18 20:08 Primary Care Provider: MAGDALENA AHUMADA DO [Primary Care Provider] - Follow up as needed Notes: Patient is a 63-year-old female who presents to the emergency department with a chief complaint of lower abdominal pain. She has generalized pain in her entire abdomen, but it is primarily in her lower mid abdomen. She has had nausea and vomiting for the past 5 days. She saw her primary care provider today took some Zofran around 1700, but still feels the same. She has a past medical history of hysterectomy, Colace cystectomy, hemorrhoidectomy, colon surgery, cataract surgery, bowel obstruction, GERD, IBS, diverticulitis, hypertension, hyperlipidemia, depression, hernia surgery, and degenerative disc disease. Her last bowel movement was 2 days ago. Exam: Tender mid lower abdomen I have greeted and performed a rapid initial assessment of this patient. A comprehensive ED assessment and evaluation of the patient, analysis of test results and completion of medical decision making process will be conducted by an additional ED providers. TRAVEL OUTSIDE OF THE [place] IN LAST 30 DAYS: No - Related Data Allergies/Adverse Reactions: IVP dye Allergy (Intermediate, Uncoded 06/30/18 18:03) rash Past Medical History - Social History Drug Abuse: None - Past Medical History Cardiac Medical History: Reports: Hx Hypercholesterolemia, Hx Hypertension Pulmonary Medical History: Reports: Hx Pneumonia Denies: Hx Asthma, Hx Bronchitis, Hx COPD, Hx Respiratory Failure, Hx Sleep Apnea, Hx Tuberculosis Neurological Medical History: Reports: Hx Cerebrovascular Accident - Patient reports "mini stroke" Endocrine Medical History: Denies: Hx Diabetes Mellitus Type 1, Hx Diabetes Mellitus Type 2 Renal/ Medical History: Reports: Hx Kidney Stones. Denies: Hx End Stage Renal Disease, Hx Ovarian Cysts, Hx Peritoneal Dialysis Malignancy Medical History: Denies: Hx Breast Cancer, Hx Cervical Cancer, Hx Leukemia, Hx Lung Cancer, Hx Ovarian Cancer GI Medical History: Reports: Hx Gastroesophageal Reflux Disease, Hx Hiatal Hernia, Hx Ulcer. Denies: Hx Crohn's Disease, Hx Irritable Bowel, Hx Liver Failure, Hx Pancreatitis Musculoskeltal Medical History: Reports Hx Arthritis, Denies Hx Fibromyalgia, Denies Hx Multiple Sclerosis, Denies Hx Muscular Dystrophy Psychiatric Medical History: Reports: Hx Depression, Hx Post Traumatic Stress Disorder Denies: Hx Bipolar Disorder, Hx Dementia, Hx Schizophrenia Traumatic Medical History: Reports: Hx Fractures - left wrist Infectious Medical History: Denies: Hx HIV Past Surgical History: Reports: Hx Abdominal Surgery - Hernia mesh placed, Hx Adenoidectomy, Hx Appendectomy, Hx Cholecystectomy, Hx Hysterectomy, Hx Orthopedic Surgery - carpal tunnel, Other - Sigmoid colectomy, rectopexy Dr. Fowler 2012; abdominal wall hernia surg. Denies: Hx Bowel Surgery, Hx Section, Hx Colostomy, Hx Coronary Artery Bypass Graft, Hx Gastric Bypass Surgery, Hx Herniorrhaphy, Hx Mastectomy, Hx Pacemaker, Hx Tonsillectomy, Hx Tubal Ligation - Immunizations Hx Diphtheria, Pertussis, Tetanus Vaccination: Yes History of Influenza Vaccine for 01/2017 - 06/2017 Season: Refused Physical Exam - Vital signs Vitals: Temp Pulse Resp BP Pulse Ox 98.8 F 98 22 H 137/85 H 100 06/30/18 18:09 06/30/18 18:09 06/30/18 18:09 06/30/18 18:09 06/30/18 18:09 Course - Vital Signs Vital signs: Temp Pulse Resp BP Pulse Ox 98.8 F 98 22 H 137/85 H 100 06/30/18 18:09 06/30/18 18:09 06/30/18 18:09 06/30/18 18:09 06/30/18 18:09 Doctor's Discharge - Discharge Referrals: MAGDALENA AHUMADA DO [Primary Care Provider] - Follow up as needed
[2018-06-30 21:24] LABS: ABSOLUTE EOSINOPHILS # (AUTO) 0.1 10^3/uL (0.0-0.6); ABSOLUTE LYMPHOCYTES (AUTO) 1.3 10^3/uL (0.5-4.7); ABSOLUTE MONOCYTES (AUTO) 0.4 10^3/uL (0.1-1.4); ABSOLUTE NEUT (AUTO) 7.5 10^3/uL (1.7-8.2); BASOPHILS % (AUTO) 0.3 % (0-2); EOSINOPHILS % (AUTO) 0.7 % (0-6); HEMATOCRIT 44.7 % (36.0-47.0); HEMOGLOBIN 15.6 g/dL (12.0-15.5); LYMPHOCYTES % (AUTO) 13.8 % (13-45); MEAN CORPUSCULAR HEMOGLOBIN 30.9 pg (27.0-33.4); MEAN CORPUSCULAR HGB CONC 34.9 g/dL (32.0-36.0); MEAN CORPUSCULAR VOLUME 89 fl (80-97); MONOCYTES % (AUTO) 4.1 % (3-13); PLATELET COUNT 249 10^3/uL (150-450); RED BLOOD COUNT 5.06 10^6/uL (3.72-5.28); RED CELL DISTRIBUTION WIDTH 13.1 % (11.5-14.0); SEGMENTED NEUTROPHILS % (AUTO) 81.1 % (42-78); TOTAL CELLS COUNTED % (AUTO) 100 %; WHITE BLOOD COUNT 9.2 10^3/uL (4.0-10.5)
[2018-06-30 21:43] LABS: ALANINE AMINOTRANSFERASE 27 U/L (9-52); ALBUMIN 5.4 g/dL (3.5-5.0); ALKALINE PHOSPHATASE 70 U/L (38-126); ANION GAP 13 (5-19); ASPARTATE AMINO TRANSFERASE 36 U/L (14-36); BILIRUBIN,DIRECT 0.3 mg/dL (0.0-0.4); BILIRUBIN,TOTAL 0.8 mg/dL (0.2-1.3); BLOOD UREA NITROGEN 14 mg/dL (7-20); CALCIUM 10.8 mg/dL (8.4-10.2); CARBON DIOXIDE 29 mmol/L (22-30); CHLORIDE 99 mmol/L (98-107); GLUCOSE 116 mg/dL (75-110); POTASSIUM 3.9 mmol/L (3.6-5.0); SODIUM 140.5 mmol/L (137-145); TOTAL PROTEIN 8.9 g/dL (6.3-8.2)
[2018-06-30] MEDS ORDERED: METHYLPREDNISOLONE INJ 125 MG/2 ML SDV IV ONE (21:59)
[2018-06-30] MEDS ORDERED: FAMOTIDINE INJ/PF 20 MG/2 ML SDV IV ONE (21:59)
[2018-06-30] MEDS ORDERED: PROMETHAZINE HCL INJ 25 MG/1 ML VIAL IV ONE (23:02)
--- NOTE | 2018-06-30 23:38 | ER Document Report ---
ED GI/ - General Chief Complaint: Abdominal Pain >50 Stated Complaint: ABDOMINAL PAIN Time Seen by Provider: 06/30/18 20:08 Primary Care Provider: PIERRE ALVARADO MD [ACTIVE STAFF] - Follow up in 3-5 days Notes: 63-year-old female patient emergency department chief complaint abdominal pain. Patient has been having abdominal pain on and off for several days. Has a long- standing history of frequent bowel obstructions. Followed by a local surgical group. Pain in the lower abdomen. Fever at home. Persistent vomiting at home and here. TRAVEL OUTSIDE OF THE [place] IN LAST 30 DAYS: No - HPI Patient complains to provider of: Abdominal pain, Vomiting Onset: Yesterday Timing/Duration: Gradual, Constant Severity at maximum: Moderate Severity in ED: Moderate - Related Data Allergies/Adverse Reactions: IVP dye Allergy (Intermediate, Uncoded 06/30/18 18:03) rash Past Medical History - General Information source: Patient - Social History Smoking Status: Never Smoker Drug Abuse: None Lives with: Family Family History: CAD, CVA, Malignancy Patient has suicidal ideation: No Patient has homicidal ideation: No - Past Medical History Cardiac Medical History: Reports: Hx Hypercholesterolemia, Hx Hypertension Pulmonary Medical History: Reports: Hx Pneumonia Denies: Hx Asthma, Hx Bronchitis, Hx COPD, Hx Respiratory Failure, Hx Sleep Apnea, Hx Tuberculosis Neurological Medical History: Reports: Hx Cerebrovascular Accident - Patient reports "mini stroke" Endocrine Medical History: Denies: Hx Diabetes Mellitus Type 1, Hx Diabetes Mellitus Type 2 Renal/ Medical History: Reports: Hx Kidney Stones. Denies: Hx End Stage Renal Disease, Hx Ovarian Cysts, Hx Peritoneal Dialysis Malignancy Medical History: Denies: Hx Breast Cancer, Hx Cervical Cancer, Hx Leukemia, Hx Lung Cancer, Hx Ovarian Cancer GI Medical History: Reports: Hx Gastroesophageal Reflux Disease, Hx Hiatal Hernia, Hx Ulcer. Denies: Hx Crohn's Disease, Hx Irritable Bowel, Hx Liver Failure, Hx Pancreatitis Musculoskeletal Medical History: Reports Hx Arthritis, Denies Hx Fibromyalgia, Denies Hx Multiple Sclerosis, Denies Hx Muscular Dystrophy Psychiatric Medical History: Reports: Hx Depression, Hx Post Traumatic Stress Disorder Denies: Hx Bipolar Disorder, Hx Dementia, Hx Schizophrenia Traumatic Medical History: Reports: Hx Fractures - left wrist Infectious Medical History: Denies: Hx HIV Past Surgical History: Reports: Hx Abdominal Surgery - Hernia mesh placed, Hx Adenoidectomy, Hx Appendectomy, Hx Cholecystectomy, Hx Hysterectomy, Hx Orthopedic Surgery - carpal tunnel, Other - Sigmoid colectomy, rectopexy Dr. Fowler 2013; abdominal wall hernia surg. Denies: Hx Bowel Surgery, Hx Section, Hx Colostomy, Hx Coronary Artery Bypass Graft, Hx Gastric Bypass Surgery, Hx Herniorrhaphy, Hx Mastectomy, Hx Pacemaker, Hx Tonsillectomy, Hx Tubal Ligation - Immunizations Hx Diphtheria, Pertussis, Tetanus Vaccination: Yes Review of Systems - Review of Systems Notes: Constitutional: denies: Chills, Diaphoresis, +Fever, Malaise, Weakness EENT: denies: Eye discharge, Blurred vision, Tearing, Double vision, Nose congestion, Nose discharge, Throat swelling, Mouth pain Cardiovascular: denies: Palpitations, Heart racing, Orthopnea, Dyspnea, Chest pain Respiratory: denies: Cough, Hurts to breathe, Wheezing, Shortness of breath Gastrointestinal: Patient is complaining of nausea, vomiting, abdominal pain l Genitourinary: denies: Burning, Dysuria, Discharge, Frequency, Flank pain, Hematuria Musculoskeletal: denies: Joint pain, Joint swelling, Muscle pain, Muscle stiffness, back pain Hematologic/Lymphatic: denies: Anemia, Easy bleeding, Easy bruising, Blood clots Neurological/Psychological: denies: Confusion, Dementia, Depression, Loss of consciousness Skin: No lesions, no masses, no skin breakdown, no abscesses Physical Exam - Vital signs Vitals: Temp Pulse Resp BP Pulse Ox 98.8 F 98 22 H 137/85 H 100 06/30/18 18:09 06/30/18 18:09 06/30/18 18:09 06/30/18 18:09 06/30/18 18:09 Interpretation: Normal - General General appearance: Appears well, Alert - HEENT Head: Normocephalic, Atraumatic Eyes: Normal Pupils: PERRL - Respiratory Respiratory status: No respiratory distress Chest status: Nontender Breath sounds: Normal Chest palpation: Normal - Cardiovascular Rhythm: Regular Heart sounds: Normal auscultation Murmur: No - Abdominal Inspection: Normal Distension: No distension Bowel sounds: Normal Tenderness: Tender - Tenderness in the lower abdomen Organomegaly: No organomegaly - Back Back: Normal, Nontender - Extremities General upper extremity: Normal inspection, Nontender, Normal color, Normal ROM, Normal temperature General lower extremity: Normal inspection, Nontender, Normal color, Normal ROM, Normal temperature, Normal weight bearing. No: Sam's sign - Neurological Neuro grossly intact: Yes Cognition: Normal Orientation: AAOx4 [place]am[place] Coma Scale Eye Opening: Spontaneous [place] Coma Scale Verbal: Oriented [place] Coma Scale Motor: Obeys Commands [place]am[place] Coma Scale Total: 15 Speech: Normal Motor strength normal: LUE, RUE, LLE, RLE Sensory: Normal - Psychological Associated symptoms: Normal affect, Normal mood - Skin Skin Temperature: Warm Skin Moisture: Dry Skin Color: Normal Course - Re-evaluation Re-evalutation: 07/01/18 01:58 Patient has evidence of bowel obstruction is seen on CT scan. Labs are normal. Consult with Dr. Alvarado with general surgery. He states that he knows this patient well and she never required surgery. He has recommended that we keep her in the ER and get IV fluids, and he will see the patient in the morning. Does not want her admitted at this time 07/01/18 01:59 Laboratory 06/30/18 06/30/18 06/30/18 19:12 21:00 21:00 WBC 9.2 RBC 5.06 Hgb 15.6 H Hct 44.7 MCV 89 MCH 30.9 MCHC 34.9 RDW 13.1 Plt Count 249 Seg Neutrophils % 81.1 H Lymphocytes % 13.8 Monocytes % 4.1 Eosinophils % 0.7 Basophils % 0.3 Absolute Neutrophils 7.5 Absolute Lymphocytes 1.3 Absolute Monocytes 0.4 Absolute Eosinophils 0.1 Absolute Basophils 0.0 Sodium 140.5 Potassium 3.9 Chloride 99 Carbon Dioxide 29 Anion Gap 13 BUN 14 Creatinine 0.76 Est GFR ( Amer) > 60 Est GFR (Non-Af Amer) > 60 Glucose 116 H Calcium 10.8 H Total Bilirubin 0.8 Direct Bilirubin 0.3 Neonat Total Bilirubin Not Reportable Neonat Direct Bilirubin Not Reportable Neonat Indirect Bili Not Reportable AST 36 ALT 27 Alkaline Phosphatase 70 Total Protein 8.9 H Albumin 5.4 H Lipase 108.0 Urine Color YELLOW Urine Appearance CLEAR Urine pH 8.0 Ur Specific [place] 1.006 Urine Protein NEGATIVE Urine Glucose (UA) NEGATIVE Urine Ketones NEGATIVE Urine Blood NEGATIVE Urine Nitrite NEGATIVE Urine Bilirubin NEGATIVE Urine Urobilinogen NEGATIVE Ur Leukocyte Esterase NEGATIVE Urine WBC (Auto) 1 Urine RBC (Auto) 1 U Hyaline Cast (Auto) Urine Bacteria (Auto) Urine Red Cell Clumps Urine WBC Clumps Squamous Epi Cells Auto <1 U Non-Squamous Epis Auto Calcium Carbonate Cryst Calcium Phosphate Cryst Calcium Oxalate Cr Auto Leucine Crystals Cystine Crystals Uric Acid Cryst (Auto) Triple Phos Cryst (Auto) Tyrosine Crystals Amorphous Sediment Auto Cellular Casts Epithelial Casts (Auto) Fatty Casts Granular Casts (Auto) Waxy Casts (Auto) Broad Casts RBC Casts (Auto) WBC Casts (Auto) Urine Mucus (Auto) U Trichomonas (Auto) Ur Yeast w Hyphae Urine Yeast (Budding) Urine Ascorbic Acid NEGATIVE 07/01/18 00:45 WBC RBC Hgb Hct MCV MCH MCHC RDW Plt Count Seg Neutrophils % Lymphocytes % Monocytes % Eosinophils % Basophils % Absolute Neutrophils Absolute Lymphocytes Absolute Monocytes Absolute Eosinophils Absolute Basophils Sodium Potassium Chloride Carbon Dioxide Anion Gap BUN Creatinine Est GFR ( Amer) Est GFR (Non-Af Amer) Glucose Calcium Total Bilirubin Direct Bilirubin Neonat Total Bilirubin Neonat Direct Bilirubin Neonat Indirect Bili AST ALT Alkaline Phosphatase Total Protein Albumin Lipase Urine Color Cancelled Urine Appearance Cancelled Urine pH Cancelled Ur Specific [place] Cancelled Urine Protein Cancelled Urine Glucose (UA) Cancelled Urine Ketones Cancelled Urine Blood Cancelled Urine Nitrite Cancelled Urine Bilirubin Cancelled Urine Urobilinogen Cancelled Ur Leukocyte Esterase Cancelled Urine WBC (Auto) Cancelled Urine RBC (Auto) Cancelled U Hyaline Cast (Auto) Cancelled Urine Bacteria (Auto) Cancelled Urine Red Cell Clumps Cancelled Urine WBC Clumps Cancelled Squamous Epi Cells Auto Cancelled U Non-Squamous Epis Auto Cancelled Calcium Carbonate Cryst Cancelled Calcium Phosphate Cryst Cancelled Calcium Oxalate Cr Auto Cancelled Leucine Crystals Cancelled Cystine Crystals Cancelled Uric Acid Cryst (Auto) Cancelled Triple Phos Cryst (Auto) Cancelled Tyrosine Crystals Cancelled Amorphous Sediment Auto Cancelled Cellular Casts Cancelled Epithelial Casts (Auto) Cancelled Fatty Casts Cancelled Granular Casts (Auto) Cancelled Waxy Casts (Auto) Cancelled Broad Casts Cancelled RBC Casts (Auto) Cancelled WBC Casts (Auto) Cancelled Urine Mucus (Auto) Cancelled U Trichomonas (Auto) Cancelled Ur Yeast w Hyphae Cancelled Urine Yeast (Budding) Cancelled Urine Ascorbic Acid Cancelled - Vital Signs Vital signs: Temp Pulse Resp BP Pulse Ox 98.0 F 98 12 158/80 H 99 06/30/18 22:26 06/30/18 18:09 06/30/18 22:01 06/30/18 22:01 06/30/18 22:01 - Laboratory Result Diagrams: 06/30/18 21:00 06/30/18 21:00 Laboratory results interpreted by me: 06/30/18 06/30/18 21:00 21:00 Hgb 15.6 H Seg Neutrophils % 81.1 H Glucose 116 H Calcium 10.8 H Total Protein 8.9 H Albumin 5.4 H Discharge - Discharge Clinical Impression: Small bowel obstruction Condition: Good Instructions: Bowel Obstruction ([facility]) Additional Instructions: Follow-up with your surgeons as instructed. Return for worsening symptoms or concerns. Referrals: PIERRE ALVARADO MD [ACTIVE STAFF] - Follow up in 3-5 days
--- NOTE | 2018-07-01 00:09 | RADIOLOGY REPORT (SQ) ---
EXAM DESCRIPTION: CT ABDOMEN PELVIS WITH IV CONTRAST COMPLETED DATE/TME: 06/30/2018 00:00 CLINICAL HISTORY: 63 years, Female, abdominal pain CREAT 0.76 COMPARISON: 03/23/2018 TECHNIQUE: Axial CT images of the abdomen and pelvis were obtained after the administration of IV and oral contrast. DLP 566. Images stored on PACS. All CT scanners at this facility use dose modulation, iterative reconstruction, and/or weight based dosing when appropriate to reduce radiation dose to as low as reasonably achievable (ALARA). [facility]: Dose Right [facility]: CareDose [facility]: Dose Right [facility]: Teradose 4D [facility]: StarShooter LIMITATIONS: None. FINDINGS: The lung bases are clear. Cholecystectomy. The liver, pancreas, spleen, and adrenal glands are unremarkable. There is no evidence of urolithiasis or hydronephrosis bilaterally. There is no intraperitoneal free air or fluid. There is no lymphadenopathy. There are mild atherosclerotic calcification of the abdominal aorta. The stomach is unremarkable. The small bowel measures up to 3.4 cm in diameter with some equalization of the small bowel along the lower central abdomen. The transition point is along the lower central abdomen. The appendix is not uniquely identified, however there are no inflammatory changes within the right lower quadrant the colon appears unremarkable. Hysterectomy. The urinary bladder is unremarkable. There are no lytic or blastic bone lesions. IMPRESSION: Small bowel obstruction with the transition point along the central lower abdomen. TECHNICAL DOCUMENTATION: Quality ID # 436: Final reports with documentation of one or more dose reduction techniques (e.g., Automated exposure control, adjustment of the mA and/or kV according to patient size, use of iterative reconstruction technique) copyright 2010 [employer]- All Rights Reserved
[2018-07-01] MEDS ORDERED: POTASSI CL 20 MEQ/D5-1/2NS 1L 1,000 ML IV ONE (00:45)
[2018-07-01] MEDS ORDERED: LORAZEPAM INJ 2 MG/1 ML VIAL IV ONE (00:47)
[2018-07-01] MEDS ORDERED: MORPHINE SULFATE 10 MG/ML INJ IV ONE (04:52)
[2018-07-01] MEDS ORDERED: PROCHLORPERAZINE EDISYLATE INJ 10 MG/2 ML VIAL IV ONE (04:53)
--- NOTE | 2018-07-01 06:40 | PDOC CONSULTATION ---
Consultation Consult Date: 07/01/18 Attending physician:: KIEL GALARZA Consult reason:: Abdominal pain History of Present Illness Admission Date/PCP: LIU MASON DO Patient complains of: Abdominal pain History of Present Illness: CARMEN HORTON is a 63 year old female Is brought by ground rescue to urgency department complaining of abdominal pain nausea and vomiting 6 times. She has been in the emergency department multiple times over the last several years for similar complaints, evaluated and found to have evidence bowel obstruction usually due to constipation or a partial reduction. Her symptoms have been relieved with IV fluids, occasionally nasogastric decompression. In the emergency department she underwent CT scan of the abdomen and pelvis with IV and oral contrast which suggested small bowel obstruction. Surgery was consulted. Recommendations were made for IV fluids. Review of the CT scan this morning shows constipation throughout the transverse colon. Of note the patient has a history of a sigmoid colectomy, rectopexy by Dr. Fowler approximately 10 years ago. She is also status post laparoscopic left inguinal herniorrhaphy at [place] last summer. Patient has been followed by Dr. Brush with colonoscopy and upper endoscopy in the last 6 months. States she had polyps removed from her colon. Past Medical History Cardiac Medical History: Reports: Hyperlipidema, Hypertension Pulmonary Medical History: Reports: Pneumonia Denies: Asthma, Bronchitis, Chronic Obstructive Pulmonary Disease (COPD), Respiratory Failure, Sleep Apnea, Tuberculosis Endocrine Medical History: Denies: Diabetes Mellitus Type 1, Diabetes Mellitus Type 2 Renal/ Medical History: Denies: End Stage Renal Disease Malignancy Medical History: Denies: Breast Cancer, Cervical Cancer, Leukemia, Lung Cancer, Ovarian Cancer GI Medical History: Reports: Gastroesophageal Reflux Disease, Hiatal Hernia Denies: Crohn's Disease Musculoskeltal Medical History: Reports: Arthritis Denies: Fibromyalgia Psychiatric Medical History: Reports: Depression, Post Traumatic Stress Disorder Denies: Bipolar Disorder, Dementia Hematology: Denies: Anemia, Hemophilia, Sickle Cell Disease Infectious Medical History: Denies: HIV Past Surgical History Past Surgical History: Sigmoid colectomy, with rectopexy; inguinal herniorrhaphy, laparoscopic Past Surgical History: Reports: Adenoidectomy, Appendectomy, Cholecystectomy, Hysterectomy, Orthopedic Surgery - carpal tunnel, Other - Sigmoid colectomy, rectopexy Dr. 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 Hx Recreational Drug Use: No Drugs: None Hx Prescription Drug Abuse: No Family History Family History: CAD, CVA, Malignancy Parental Family History Reviewed: Yes Children Family History Reviewed: Yes Sibling(s) Family History Reviewed.: Yes Medication/Allergy Home Medications: Cholecalciferol (Vitamin D3) [Vitamin D3 2000 unit Tablet] 2,000 unit PO DAILY 09/11/17 Eszopiclone [Lunesta] 3 mg PO QHS 09/11/17 Fluticasone Propionate [Flonase Nasal [place] 50 Mcg/[place] 16 gm] 1 spray NASL DAILYP PRN 09/11/17 Linaclotide [Linzess] 72 mcg PO [id number] 09/11/17 Meclizine HCl [Antivert 12.5 mg Tablet] 12.5 mg PO DAILYP PRN 09/11/17 Nitroglycerin [Nitrostat 0.4 mg (1/150 Gr) Tabs 25/Bottle] 1 tab SL Q5MP PRN Simvastatin [Zocor 80 mg Tablet] 80 mg PO QPM 09/11/17 Acetaminophen [Tylenol Extra Strength 500 mg Tablet] 500 mg PO Q4HP PRN 10/31/17 Raloxifene HCl [Evista 60 mg Tablet] 60 mg PO DAILY 10/31/17 Vortioxetine Hydrobromide [Trintellix] 10 mg PO DAILY 01/10/18 Aspirin [Aspirin 81 mg Chewable Tablet] 81 mg PO DAILY 03/18/18 Brexpiprazole [Rexulti] 0.5 mg PO DAILY 03/18/18 Diclofenac Sodium [Voltaren] 4 gm TOP DAILYP PRN 03/18/18 Famotidine [Pepcid] 10 mg PO ACHS 30 Days #60 tablet 03/18/18 Hydrochlorothiazide [Hydrodiuril 12.5 mg Tablet] 12.5 mg PO DAILY 03/18/18 Metoclopramide HCl [Reglan 10 mg Tablet] 10 mg PO ACHS 30 Days #120 tablet 03/18/18 Sucralfate [Carafate 1 gm Tablet] 1 gm PO ACHS #120 tablet 03/18/18 Omeprazole 40 mg PO DAILY #14 capsule. 05/07/18 Allergies/Adverse Reactions: IVP dye Allergy (Intermediate, Uncoded 06/30/18 18:03) rash Review of Systems Constitutional: PRESENT: as per HPI Eyes: ABSENT: visual disturbances Ears: ABSENT: hearing changes Cardiovascular: ABSENT: chest pain, dyspnea on exertion, edema, orthropnea, palpitations Respiratory: ABSENT: cough, hemoptysis Gastrointestinal: PRESENT: as per HPI Neurological: ABSENT: abnormal gait, abnormal speech, confusion, dizziness, focal weakness, syncope Psychiatric: ABSENT: anxiety, depression, homidical ideation, suicidal ideation Physical Exam Vital Signs: Temp Pulse Resp BP Pulse Ox 98.0 F 98 17 110/60 94 06/30/18 22:26 06/30/18 18:09 07/01/18 06:01 07/01/18 06:01 07/01/18 06:01 Intake & Output 06/29/18 06/30/18 07/01/18 06:59 06:59 06:59 Intake Total 1000 Balance 1000 Weight 54 kg General appearance: PRESENT: mild distress Head exam: PRESENT: normocephalic Eye exam: PRESENT: EOMI Mouth exam: PRESENT: dry mucosa Neck exam: PRESENT: full ROM Respiratory exam: PRESENT: clear to auscultation alice Pulses: PRESENT: normal carotid pulses, normal radial pulses, normal femoral pulses GI/Abdominal exam: PRESENT: diminished bowel sounds, tenderness - Diffuse abdominal tenderness but no peritoneal signs no rigidity. Rectal exam: PRESENT: deferred Extremities exam: PRESENT: full ROM Neurological exam: PRESENT: oriented to person, oriented to place, oriented to time, oriented to situation Psychiatric exam: PRESENT: other - Slightly depressed affect Results Laboratory Results: 06/30/18 21:00 06/30/18 21:00 06/30/18 06/30/18 06/30/18 19:12 21:00 21:00 WBC 9.2 RBC 5.06 Hgb 15.6 H Hct 44.7 MCV 89 MCH 30.9 MCHC 34.9 RDW 13.1 Plt Count 249 Seg Neutrophils % 81.1 H Lymphocytes % 13.8 Monocytes % 4.1 Eosinophils % 0.7 Basophils % 0.3 Absolute Neutrophils 7.5 Absolute Lymphocytes 1.3 Absolute Monocytes 0.4 Absolute Eosinophils 0.1 Absolute Basophils 0.0 Sodium 140.5 Potassium 3.9 Chloride 99 Carbon Dioxide 29 Anion Gap 13 BUN 14 Creatinine 0.76 Est GFR ( Amer) > 60 Est GFR (Non-Af Amer) > 60 Glucose 116 H Calcium 10.8 H Total Bilirubin 0.8 AST 36 ALT 27 Alkaline Phosphatase 70 Total Protein 8.9 H Albumin 5.4 H Lipase 108.0 Urine Color YELLOW Urine Appearance CLEAR Urine pH 8.0 Ur Specific [place] 1.006 Urine Protein NEGATIVE Urine Glucose (UA) NEGATIVE Urine Ketones NEGATIVE Urine Blood NEGATIVE Urine Nitrite NEGATIVE Ur Leukocyte Esterase NEGATIVE Urine WBC (Auto) 1 Urine RBC (Auto) 1 07/01/18 00:45 WBC RBC Hgb Hct MCV MCH MCHC RDW Plt Count Seg Neutrophils % Lymphocytes % Monocytes % Eosinophils % Basophils % Absolute Neutrophils Absolute Lymphocytes Absolute Monocytes Absolute Eosinophils Absolute Basophils Sodium Potassium Chloride Carbon Dioxide Anion Gap BUN Creatinine Est GFR ( Amer) Est GFR (Non-Af Amer) Glucose Calcium Total Bilirubin AST ALT Alkaline Phosphatase Total Protein Albumin Lipase Urine Color Cancelled Urine Appearance Cancelled Urine pH Cancelled Ur Specific [place] Cancelled Urine Protein Cancelled Urine Glucose (UA) Cancelled Urine Ketones Cancelled Urine Blood Cancelled Urine Nitrite Cancelled Ur Leukocyte Esterase Cancelled Urine WBC (Auto) Cancelled Urine RBC (Auto) Cancelled Impressions: Abdomen/Pelvis CT 06/30/18 00:00 IMPRESSION: Small bowel obstruction with the transition point along the central lower abdomen. TECHNICAL DOCUMENTATION: Quality ID # 436: Final reports with documentation of one or more dose reduction techniques (e.g., Automated exposure control, adjustment of the mA and/or kV according to patient size, use of iterative reconstruction technique) copyright 2011 [employer]- All Rights Reserved Assessment & Plan - Diagnosis (1) Partial small bowel obstruction Plan: Impression: I suspect patient's partial small bowel obstruction was diagnosed on CT scan is dated 2 constipation as evidenced by a significant amount of stool in the patient's right and transverse colon. Findings are similar to previous imaging from hospitalizations in years past. Recommendations: 1. Continue IV fluids in the emergency department 2. We will give patient soapsuds enemas and reassess for results. Believe patient can be discharged from the emergency department after constipation resolved. 3. Please reconsult surgery if symptoms not resolved. I have discussed the above with patient and Dr. Ambrosio Vela, emergency room physician (2) Constipation Is this a current diagnosis for this admission?: Yes (3) History of open sigmoidectomy Is this a current diagnosis for this admission?: Yes - Time Time Spent: 30 to 50 Minutes Medications reviewed and adjusted accordingly: Yes Anticipated discharge: Home
[2018-07-01] MEDS: ONDANSETRON HCL INJ/PF 4 MG/2 ML SDV IV PRN ×2 (12:03→23:21)
[2018-07-01] MEDS ORDERED: PROMETHAZINE HCL INJ 25 MG/1 ML VIAL IV ONE (15:27)
[2018-07-01] MEDS ORDERED: KETOROLAC TROMETHAMINE INJ/PF 30 MG/1 ML SDV IV ONE (15:28)
--- NOTE | 2018-07-01 18:30 | PDOC H&P ---
History of Present Illness Admission Date/PCP: LIU MASON DO Patient complains of: abdominal pains with n/v History of Present Illness: CARMEN HORTON is a 63 year old female who had previous episodes of partial small bowel obstruction in the past and responded to consevative management. She has underlying depression and followed by a psychiatric nurse and on anti depressants and takes Lunesta every night. History of sigmoid resection for diverticulitis,hysterectomy and cholecystectomy as well as incisional hernias with repair using mesh done at [place] about 1.5 years ago. C/O epigastric and andre umbilical pains yesterday associated with nausea/vom iting then went to ED. Had CT scan of abdomen which showed partial small bowel obstruction with severe constipation. Had enemas in the ED with minimal results. Had Small bowel series with Gastrograffin in the ED. This showed dilated stomach likely due to gastroparesis with slow transit. All films were reviewed wit Radiologist Dr Beverly. Will do a follow up KUB in am. Meantime, patient still c/o epigastric and andre-umbilical pains with nauasea & vomiting. Past Medical History Cardiac Medical History: Reports: Hyperlipidema, Hypertension Pulmonary Medical History: Reports: Pneumonia Denies: Asthma, Bronchitis, Chronic Obstructive Pulmonary Disease (COPD), Respiratory Failure, Sleep Apnea, Tuberculosis Endocrine Medical History: Denies: Diabetes Mellitus Type 1, Diabetes Mellitus Type 2 Renal/ Medical History: Denies: End Stage Renal Disease Malignancy Medical History: Denies: Breast Cancer, Cervical Cancer, Leukemia, Lung Cancer, Ovarian Cancer GI Medical History: Reports: Gastroesophageal Reflux Disease, Hiatal Hernia Denies: Crohn's Disease Musculoskeltal Medical History: Reports: Arthritis Denies: Fibromyalgia Psychiatric Medical History: Reports: Depression, Post Traumatic Stress Disorder Denies: Bipolar Disorder, Dementia Hematology: Denies: Anemia, Hemophilia, Sickle Cell Disease Infectious Medical History: Denies: HIV Past Surgical History Past Surgical History: Reports: Adenoidectomy, Appendectomy, Cholecystectomy, Hysterectomy, Orthopedic Surgery - carpal tunnel, Other - Sigmoid colectomy, rectopexy Dr. 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 Hx Recreational Drug Use: No Drugs: None Hx Prescription Drug Abuse: No Family History Family History: CAD, CVA, Malignancy Parental Family History Reviewed: Yes Children Family History Reviewed: No Sibling(s) Family History Reviewed.: No Medication/Allergy Home Medications: Amitriptyline HCl [Elavil 10 Mg Tablet] 30 mg PO QHS 07/01/18 Aspirin [Ecotrin] 81 mg PO DAILY 07/01/18 Cholecalciferol (Vitamin D3) [Vitamin D3 2000 unit Tablet] 2,000 unit PO DAILY 07/01/18 Eszopiclone [Lunesta] 3 mg PO HSP PRN 07/01/18 Famotidine [Pepcid 20 mg Tablet] 20 mg PO BID 07/01/18 Hydrochlorothiazide [Hydrodiuril 12.5 mg Tablet] 12.5 mg PO DAILY 07/01/18 Linaclotide [Linzess] 72 mcg PO QAM 07/01/18 Meclizine HCl [Antivert 12.5 mg Tablet] 12.5 mg PO BIDP PRN 07/01/18 Nitroglycerin [Nitrostat 0.4 mg (1/150 Gr) Tabs 25/Bottle] 1 tab SL Q5MP PRN 0 07/01/18 RX: Omeprazole 40 mg PO Q6AM 07/01/18 Raloxifene HCl [Evista 60 mg Tablet] 60 mg PO DAILY 07/01/18 Simethicone [Mylicon 80 mg Chewable Tablet] 160 mg PO BIDP PRN 07/01/18 Simvastatin [Zocor 80 mg Tablet] 80 mg PO QHS 07/01/18 Allergies/Adverse Reactions: IVP dye Allergy (Intermediate, Uncoded 06/30/18 18:03) rash Review of Systems Constitutional: PRESENT: other - no fever/chills Eyes: PRESENT: other - no visual/hearing changes Cardiovascular: PRESENT: other - no chest pains/cough Gastrointestinal: PRESENT: abdominal pain, constipation, nausea, vomiting Genitourinary: PRESENT: other - no dysuria Psychiatric: PRESENT: anxiety, depression, suicidal ideation - history in the past Physical Exam Vital Signs: Temp Pulse Resp BP Pulse Ox 99.0 F 98 16 121/71 96 07/01/18 16:00 06/30/18 18:09 07/01/18 16:01 07/01/18 16:00 07/01/18 16:01 Intake & Output 06/30/18 07/01/18 07/02/18 06:59 06:59 06:59 Intake Total 1000 1000 Balance 1000 1000 Weight 54 kg General appearance: PRESENT: mild distress Head exam: PRESENT: atraumatic Eye exam: PRESENT: conjunctiva pink Mouth exam: PRESENT: moist Neck exam: PRESENT: full ROM Respiratory exam: PRESENT: clear to auscultation alice Cardiovascular exam: PRESENT: RRR Pulses: PRESENT: normal radial pulses Vascular exam: PRESENT: normal capillary refill GI/Abdominal exam: PRESENT: soft, tenderness - epigastric and andre-umbilical areas Rectal exam: PRESENT: deferred Extremities exam: PRESENT: full ROM Musculoskeletal exam: PRESENT: ambulatory Neurological exam: PRESENT: alert, oriented to person, oriented to place, oriented to time, oriented to situation Psychiatric exam: PRESENT: anxious Skin exam: PRESENT: normal color, warm Results Laboratory Results: 06/30/18 21:00 06/30/18 21:00 06/30/18 06/30/18 06/30/18 19:12 21:00 21:00 WBC 9.2 RBC 5.06 Hgb 15.6 H Hct 44.7 MCV 89 MCH 30.9 MCHC 34.9 RDW 13.1 Plt Count 249 Seg Neutrophils % 81.1 H Lymphocytes % 13.8 Monocytes % 4.1 Eosinophils % 0.7 Basophils % 0.3 Absolute Neutrophils 7.5 Absolute Lymphocytes 1.3 Absolute Monocytes 0.4 Absolute Eosinophils 0.1 Absolute Basophils 0.0 Sodium 140.5 Potassium 3.9 Chloride 99 Carbon Dioxide 29 Anion Gap 13 BUN 14 Creatinine 0.76 Est GFR ( Amer) > 60 Est GFR (Non-Af Amer) > 60 Glucose 116 H Calcium 10.8 H Total Bilirubin 0.8 AST 36 ALT 27 Alkaline Phosphatase 70 Total Protein 8.9 H Albumin 5.4 H Lipase 108.0 Urine Color YELLOW Urine Appearance CLEAR Urine pH 8.0 Ur Specific Apex 1.006 Urine Protein NEGATIVE Urine Glucose (UA) NEGATIVE Urine Ketones NEGATIVE Urine Blood NEGATIVE Urine Nitrite NEGATIVE Ur Leukocyte Esterase NEGATIVE Urine WBC (Auto) 1 Urine RBC (Auto) 1 07/01/18 00:45 WBC RBC Hgb Hct MCV MCH MCHC RDW Plt Count Seg Neutrophils % Lymphocytes % Monocytes % Eosinophils % Basophils % Absolute Neutrophils Absolute Lymphocytes Absolute Monocytes Absolute Eosinophils Absolute Basophils Sodium Potassium Chloride Carbon Dioxide Anion Gap BUN Creatinine Est GFR ( Amer) Est GFR (Non-Af Amer) Glucose Calcium Total Bilirubin AST ALT Alkaline Phosphatase Total Protein Albumin Lipase Urine Color Cancelled Urine Appearance Cancelled Urine pH Cancelled Ur Specific Apex Cancelled Urine Protein Cancelled Urine Glucose (UA) Cancelled Urine Ketones Cancelled Urine Blood Cancelled Urine Nitrite Cancelled Ur Leukocyte Esterase Cancelled Urine WBC (Auto) Cancelled Urine RBC (Auto) Cancelled Impressions: Abdomen/Pelvis CT 06/30/18 00:00 IMPRESSION: Small bowel obstruction with the transition point along the central lower abdomen. TECHNICAL DOCUMENTATION: Quality ID # 436: Final reports with documentation of one or more dose reduction techniques (e.g., Automated exposure control, adjustment of the mA and/or kV according to patient size, use of iterative reconstruction technique) copyright 2011 [employer]- All Rights Reserved Assessment & Plan - Diagnosis (1) Constipation Is this a current diagnosis for this admission?: Yes (2) History of open sigmoidectomy Is this a current diagnosis for this admission?: Yes (3) Small bowel obstruction Is this a current diagnosis for this admission?: Yes (4) Anxiety disorder Is this a current diagnosis for this admission?: Yes (5) Constipation Qualifiers: Constipation type: other constipation type Qualified Code(s): K59.09 - Other constipation Is this a current diagnosis for this admission?: Yes (6) Depression Is this a current diagnosis for this admission?: Yes - Time Time Spent: 50 to 70 Minutes - Inpatient Certification Medical Necessity: Need For IV Fluids, Risk of Complication if Not Cared For in Hospital - Plan Summary Plan Summary: Keep NPO Hydrate Follow up KUB in am Try metochlopromide for gastroparesis
[2018-07-01] MEDS ORDERED: METOCLOPRAMIDE HCL INJ/PF 10 MG/2 ML SDV IV ONE (19:30)
[2018-07-01] MEDS: DEXTROSE 5%-LACTATED RINGERS 1,000 ML IV PRN (20:32)
[2018-07-01] MEDS: METOCLOPRAMIDE HCL INJ/PF 10 MG/2 ML SDV IV PRN (20:32)
[2018-07-01] MEDS ORDERED: PHARMACY COMMUNICATION ORDER MC NR (21:00)
--- NOTE | 2018-07-01 23:14 | RADIOLOGY REPORT (SQ) ---
EXAM DESCRIPTION: XR ABDOMEN 1 VIEW (KUB) COMPLETED DATE/TME: 07/01/2018 20:59 CLINICAL HISTORY: 63 years Female, Check Placement of NG Tube COMPARISON: Same day, CT. TECHNIQUE/LIMITATION: Targeted exam for enteric tube assessment. FINDINGS: Adequate appearing enteric tube with tip at the upper abdomen involving a left upper abdominal course. 4.1 cm diameter gaseous bowel distention at the left paracentral abdomen consistent with prior exam. IMPRESSION: Enteric tube.
[2018-07-01] MEDS: KETOROLAC TROMETHAMINE INJ/PF 30 MG/1 ML SDV IV SCH (23:20)
[2018-07-02] MEDS: METOCLOPRAMIDE HCL INJ/PF 10 MG/2 ML SDV IV PRN ×2 (04:07→14:45)
[2018-07-02] MEDS: DEXTROSE 5%-LACTATED RINGERS 1,000 ML IV PRN ×2 (04:08→11:21)
[2018-07-02 05:40] LABS: ABSOLUTE EOSINOPHILS # (AUTO) 0.1 10^3/uL (0.0-0.6); ABSOLUTE MONOCYTES (AUTO) 0.7 10^3/uL (0.1-1.4); BASOPHILS % (AUTO) 0.3 % (0-2); EOSINOPHILS % (AUTO) 1.2 % (0-6); HEMOGLOBIN 14.2 g/dL (12.0-15.5); LYMPHOCYTES % (AUTO) 12.4 % (13-45); MEAN CORPUSCULAR HEMOGLOBIN 30.8 pg (27.0-33.4); MEAN CORPUSCULAR HGB CONC 34.6 g/dL (32.0-36.0); MEAN CORPUSCULAR VOLUME 89 fl (80-97); MONOCYTES % (AUTO) 9.4 % (3-13); PLATELET COUNT 219 10^3/uL (150-450); RED CELL DISTRIBUTION WIDTH 13.1 % (11.5-14.0); SEGMENTED NEUTROPHILS % (AUTO) 76.7 % (42-78); TOTAL CELLS COUNTED % (AUTO) 100 %; WHITE BLOOD COUNT 7.8 10^3/uL (4.0-10.5)
[2018-07-02] MEDS: KETOROLAC TROMETHAMINE INJ/PF 30 MG/1 ML SDV IV SCH ×4 (05:46→23:42)
[2018-07-02 06:00] LABS: ALANINE AMINOTRANSFERASE 16 U/L (9-52); ALBUMIN 4.7 g/dL (3.5-5.0); ALKALINE PHOSPHATASE 53 U/L (38-126); ANION GAP 12 (5-19); ASPARTATE AMINO TRANSFERASE 30 U/L (14-36); BILIRUBIN,DIRECT 0.3 mg/dL (0.0-0.4); BLOOD UREA NITROGEN 17 mg/dL (7-20); CALCIUM 9.6 mg/dL (8.4-10.2); CARBON DIOXIDE 27 mmol/L (22-30); CHLORIDE 104 mmol/L (98-107); GLUCOSE 103 mg/dL (75-110); POTASSIUM 3.9 mmol/L (3.6-5.0); SODIUM 143.3 mmol/L (137-145); TOTAL PROTEIN 6.9 g/dL (6.3-8.2)
--- NOTE | 2018-07-02 13:54 | RADIOLOGY REPORT (SQ) ---
EXAM DESCRIPTION: ACUTE ABDOMEN SERIES COMPLETED DATE/TIME: 07/02/2018 11:30 am REASON FOR STUDY: SBO COMPARISON: 07/01/2018 NUMBER OF VIEWS: Three views. TECHNIQUE: Frontal chest, supine abdomen and upright/decubitus abdomen radiographic images acquired. LIMITATIONS: None. FINDINGS: CHEST: Lungs clear of infiltrates. FREE AIR: None. No abnormal gas collections. BOWEL GAS PATTERN: Gas and enteric contrast are seen throughout nondilated loops of colon. Few mildl y prominent gas-filled loops of small bowel are demonstrated. CALCIFICATIONS: No suspicious calcifications. HARDWARE: Enteric tube terminates subdiaphragmatically within the left upper quadrant. Sutures and s urgical clips are seen within the soft tissues of the pelvis. SOFT TISSUES: No gross mass or suggestion of organomegaly. BONES: No acute fracture. No worrisome bone lesions. OTHER: No other significant finding. IMPRESSION: 1. Continued enteric contrast propagation to the level of the left colon. Few prominen t loops of small bowel are seen within the left upper quadrant. 2. Enteric tube demonstrating appropriate positioning. TECHNICAL DOCUMENTATION: JOB ID: [id number] [employer]- All Rights Reserved Reading location - IP/workstation name: [email or web address]
--- NOTE | 2018-07-02 19:57 | PDOC PROGRESS REPORT ---
Subjective Progress Note for:: 07/02/18 Subjective:: abdominal pains but less Has good BM Reason For Visit: GASTROPARESIS,PARTIAL SMALL BOWEL OBSTRUCTION, Physical Exam Vital Signs: Temp Pulse Resp BP Pulse Ox 98.7 F 73 16 113/52 L 100 07/02/18 16:09 07/02/18 16:09 07/02/18 16:09 07/02/18 16:09 07/02/18 16:09 Intake & Output 07/01/18 07/02/18 07/03/18 06:59 06:59 06:59 Intake Total 1000 2310 1262 Output Total 500 Balance 1000 1810 1262 Weight 54 kg 54 kg Exam: Decrease drainage from NGT. Pulled out and will start clears Abdomen less distended almost flat with mild umbilical area tenderness. KUB this am showed dye in the colon indicating no obstruction. Results Laboratory Results: 07/02/18 05:32 07/02/18 05:32 07/02/18 07/02/18 05:32 05:32 WBC 7.8 RBC 4.60 Hgb 14.2 Hct 41.0 MCV 89 MCH 30.8 MCHC 34.6 RDW 13.1 Plt Count 219 Seg Neutrophils % 76.7 Lymphocytes % 12.4 L Monocytes % 9.4 Eosinophils % 1.2 Basophils % 0.3 Absolute Neutrophils 6.0 Absolute Lymphocytes 1.0 Absolute Monocytes 0.7 Absolute Eosinophils 0.1 Absolute Basophils 0.0 Sodium 143.3 Potassium 3.9 Chloride 104 Carbon Dioxide 27 Anion Gap 12 BUN 17 Creatinine 0.68 Est GFR ( Amer) > 60 Est GFR (Non-Af Amer) > 60 Glucose 103 Calcium 9.6 Total Bilirubin 1.0 AST 30 ALT 16 Alkaline Phosphatase 53 Total Protein 6.9 Albumin 4.7 Impressions: Abdomen/Pelvis CT 06/30/18 00:00 IMPRESSION: Small bowel obstruction with the transition point along the central lower abdomen. TECHNICAL DOCUMENTATION: Quality ID # 436: Final reports with documentation of one or more dose reduction techniques (e.g., Automated exposure control, adjustment of the mA and/or kV according to patient size, use of iterative reconstruction technique) copyright 2011 [employer]- All Rights Reserved KUB X-Ray 07/01/18 20:59 IMPRESSION: Enteric tube. Acute Abdomen Series 07/02/18 07:30 IMPRESSION: 1. Continued enteric contrast propagation to the level of the left colon. Few prominent loops of small bowel are seen within the left upper quadrant. 2. Enteric tube demonstrating appropriate positioning. Assessment & Plan - Diagnosis (1) Constipation Is this a current diagnosis for this admission?: Yes (2) History of open sigmoidectomy Is this a current diagnosis for this admission?: Yes (3) Small bowel obstruction Is this a current diagnosis for this admission?: Yes (4) Anxiety disorder Is this a current diagnosis for this admission?: Yes (5) Constipation Qualifiers: Constipation type: other constipation type Qualified Code(s): K59.09 - Other constipation Is this a current diagnosis for this admission?: Yes (6) Depression Is this a current diagnosis for this admission?: Yes - Time Time Spent with patient: 15-24 minutes - Inpatient Certification Medical Necessity: Need For IV Fluids, Need for Pain Control, Risk of Complic ation if Not Cared For in Hospital - Plan Summary Plan Summary: Start Clears Ambulate Continue Toradol for pain management Resume some of home meds
[2018-07-02] MEDS: FAMOTIDINE 20 MG TABLET PO SCH (21:48)
[2018-07-02] MEDS ORDERED: AMITRIPTYLINE HCL 10 MG TABLET PO SCH (22:00)
[2018-07-03] MEDS: KETOROLAC TROMETHAMINE INJ/PF 30 MG/1 ML SDV IV SCH ×2 (05:53→15:39)
[2018-07-03] MEDS: METOCLOPRAMIDE HCL INJ/PF 10 MG/2 ML SDV IV PRN (08:14)
[2018-07-03] MEDS: FAMOTIDINE 20 MG TABLET PO SCH (10:33)
[2018-07-03] MEDS: ONDANSETRON HCL INJ/PF 4 MG/2 ML SDV IV PRN (10:33)
--- NOTE | 2018-07-03 11:46 | PDOC PROGRESS REPORT ---
Subjective Progress Note for:: 07/03/18 Subjective:: Patient still having abdominal pain, nausea; did tolerate diet; had bowel movements Reason For Visit: GASTROPARESIS,PARTIAL SMALL BOWEL OBSTRUCTION, Physical Exam Vital Signs: Temp Pulse Resp BP Pulse Ox 98.5 F 71 16 148/61 H 99 07/03/18 08:00 07/03/18 08:00 07/03/18 08:00 07/03/18 08:00 07/03/18 08:00 Intake & Output 07/02/18 07/03/18 07/04/18 06:59 06:59 06:59 Intake Total 2310 2902 Output Total 500 Balance 1810 2902 Weight 54 kg 55.4 kg General appearance: PRESENT: other - Sad appearance GI/Abdominal exam: PRESENT: other - Abdomen is soft no distention. Patient flin ches when palpated Results Laboratory Results: 07/02/18 05:32 07/02/18 05:32 Impressions: Abdomen/Pelvis CT 06/30/18 00:00 IMPRESSION: Small bowel obstruction with the transition point along the central lower abdomen. TECHNICAL DOCUMENTATION: Quality ID # 436: Final reports with documentation of one or more dose reduction techniques (e.g., Automated exposure control, adjustment of the mA and/or kV according to patient size, use of iterative reconstruction technique) copyright 2011 [employer]- All Rights Reserved KUB X-Ray 07/01/18 20:59 IMPRESSION: Enteric tube. Acute Abdomen Series 07/02/18 07:30 IMPRESSION: 1. Continued enteric contrast propagation to the level of the left colon. Few prominent loops of small bowel are seen within the left upper quadrant. 2. Enteric tube demonstrating appropriate positioning. Assessment & Plan - Diagnosis (2) Constipation Is this a current diagnosis for this admission?: Yes Plan: Impression: Constipation resolving: Chronic abdominal pain back to baseline Recommendations: 1. Encouraged patient to be up ambulating and have diet of choice 2. Anticipate discharge home later today. (3) History of open sigmoidectomy Is this a current diagnosis for this admission?: Yes (4) Anxiety disorder Is this a current diagnosis for this admission?: Yes
[2018-07-03 17:41] VITALS: BP 139/64
--- NOTE | 2018-07-04 10:07 | RADIOLOGY REPORT (SQ) ---
EXAM DESCRIPTION: SMALL BOWEL SERIES COMPLETED DATE/TIME: 07/01/2018 4:48 pm REASON FOR STUDY: Bowel Obstruction COMPARISON: None. TECHNIQUE: Oral Gastrografin administered to patient. Serial overhead images acquired and saved to PACs. LIMITATIONS: Residual contrast throughout the abdomen from prior CT study FINDINGS: Account Classification Clerk film demonstrates residual CT contrast in the small bowel and colon. Patient drank Gastrografin without difficulty. The majority of the contrast remained in the stomach up to the 4 ho ur film with very little contrast seen in the duodenum. Delayed KUB will be obtained in the a.m. to assess for migration of contrast. IMPRESSION: 4 hours small bowel film demonstrates majority of contrast remaining in the stomach, pos sibly indicating gastroparesis. Delayed film in the a.m. will be acquired. COMMENT: None TECHNICAL DOCUMENTATION: JOB ID: [id number]- All Rights Reserved FLUOROSCOPY TIME: None 5 images saved to PACS. PROCEDURE: Initial physiologist image of abdomen acquired, followed by administration of oral water-soluble contrast. Serial radiographic images acquired. Fluoroscopic images recorded of the terminal ileum and other indicated areas. All images stored on PACS. Reading location - IP/workstation name: [email or web address]
--- NOTE | 2018-07-05 09:37 | DISCHARGE SUMMARY E ---
Discharge Summary NAME: CARMEN HORTON : 1955 AGE: 63Y ADMITTED: 07/01/2018 DISCHARGED: 07/03/2018 REASON FOR ADMISSION: Partial small bowel obstruction. SUMMARY OF HOSPITALIZATION: The patient is a 63-year-old white female with a history of multiple previous hospitalizations at [facility] for partial small bowel obstruction. She has a long history of chronic pain and constipation. She was evaluated in the emergency department and found to have findings consistent with a partial small bowel obstruction and was admitted to the surgical service for same. The patient was kept n.p.o. and on IV fluids. She did have a CT scan of the abdomen and pelvis with IV contrast only and no oral contrast. Her findings were suggestive of a partial small bowel obstruction. The patient clinically improved after being given enemas. Her abdominal films showed improvement in her gas pattern in the small bowel. Her nasogastric tube was removed and she was started on a diet and tolerated this reasonably well in spite of her complaints of chronic pain and nausea. By the third hospital day she was felt to have received maximal benefit from the hospitalization and was discharged home. FINAL DIAGNOSIS: Abdominal pain; partial small bowel obstruction, constipation, resolved. DISPOSITION: The patient was discharged home in the care of her family to follow up with [facility] and/or her primary care provider on an as-needed basis. DICTATING PHYSICIAN: PIERRE CADET M.D. [id number] PHY#: [id number] ID: [id number] JOB#: [id number] ACCT: [id number] cc:PIERRE CADET M.D. E. RChina > MTDGeovanna
== END 2018-07-03 18:00 | disposition home or self-care (01) | DRG 390 ==
LOC: ER 17:56 → EH 07-01 19:44 → 5 07-01 22:00
PROVIDERS: ATTEND Surgery
PROC: 0D9670Z Drainage of Stomach with Drainage Device, Via Natural or Artificial Opening (ICD-10-PCS; principal; 2018-07-01)
DX: K56.600 Partial intestinal obstruction, unspecified as to cause (principal); K59.09 Other constipation; G89.29 Other chronic pain; Z86.010 Personal history of colon polyps; E78.5 Hyperlipidemia, unspecified; I10 Essential (primary) hypertension; M19.90 Unspecified osteoarthritis, unspecified site; F41.9 Anxiety disorder, unspecified; F43.10 Post-traumatic stress disorder, unspecified; F32.9 Major depressive disorder, single episode, unspecified; Z79.899 Other long term (current) drug therapy; Z90.49 Acquired absence of other specified parts of digestive tract; Z91.041 Radiographic dye allergy status; Z79.82 Long term (current) use of aspirin; Z82.49 Family history of ischemic heart disease and other diseases of the circulatory system; Z82.3 Family history of stroke; Z80.9 Family history of malignant neoplasm, unspecified; Z86.73 Personal history of transient ischemic attack (TIA), and cerebral infarction without residual deficits
CPT/HCPCS: 36415; 74018; 74022; 74177; 74250; 80053; 81001; 83690; 85025; 99285; J0780; J1200; J1885; J2060; J2270; J2405; J2550; J2765; J2930; J3480; J3490; J7030; S0028

== ENCOUNTER → 2018-08-23 | Outpatient (CLI) | payer MEDICAID ==
--- NOTE | 2018-08-23 10:56 | RADIOLOGY REPORT (SQ) ---
EXAM DESCRIPTION: CT ABD/PELVIS WITH IV ORAL COMPLETED DATE/TIME: 08/23/2018 9:34 am REASON FOR STUDY: PERIUMBILICAL PAIN (R10.33), CONSTIPATION (K59.00) R10.33 PERIUMBILICAL PAIN K59. 00 CONSTIPATION, UNSPECIFIED R10.12 LEFT UPPER QUADRANT PAIN COMPARISON: [address] abdomen pelvis exams since 2011 Most recent comparison studies 06/30/2018, 03/23/2018, 01/13/2018 TECHNIQUE: CT scan of the abdomen and pelvis performed using helical scanning technique with dynamic intravenous contrast injection. No oral contrast. Images reviewed with lung, soft tissue, and bone windows. Reconstructed coronal and sagittal MPR images reviewed. Delayed images for evaluation of the urinary system also acquired. All images stored on PACS. All CT scanners at this facility use dose modulation, iterative reconstruction, and/or weight based d osing when appropriate to reduce radiation dose to as low as reasonably achievable (ALARA). [facility]: Dose Right [facility]: CareDose [facility]: Dose Right [facility]: Teradose 4D [facility]: P10 [employer] S.L. CONTRAST TYPE AND DOSE: contrast/concentration: Isovue 350.00 mg/ml; Total Contrast Delivered: 64.0 ml; Total Saline Delivered: 65.0 ml Patient has IV iodinated contrast allergy, was treated with oral steroid prep without complication RENAL FUNCTION: Creatinine 0.8 RADIATION DOSE: CT Rad equipment meets quality standard of care and radiation dose reduction techniq ues were employed. CTDIvol: 4.4 - 5.0 mGy. DLP: 435 mGy-cm.. LIMITATIONS: None. FINDINGS: LOWER CHEST: No significant findings. No nodules or infiltrates. LIVER: Normal size. No masses. No dilated ducts. SPLEEN: Normal size. No focal lesions. PANCREAS: No masses. No significant calcifications. No adjacent inflammation or peripancreatic fluid collections. Pancreatic duct not dilated. GALLBLADDER: Surgically absent ADRENAL GLANDS: No significant masses or asymmetry. RIGHT KIDNEY AND URETER: No solid masses. No significant calcifications. No hydronephrosis or hyd roureter. LEFT KIDNEY AND URETER: No solid masses. No significant calcifications. No hydronephrosis or hydr oureter. AORTA AND VESSELS: No aneurysm. No dissection. Renal arteries, SMA, celiac without stenosis. RETROPERITONEUM: No retroperitoneal adenopathy, hemorrhage or masses. BOWEL AND PERITONEAL CAVITY: Patient drank oral contrast. No CT evidence of bowel obstruction. Mode rate stool in the colon. Row of anastomotic melissa post sigmoid colectomy. APPENDIX: Surgically absent PELVIS: Post hysterectomy. No free pelvic fluid. Urinary bladder unremarkable ABDOMINAL WALL: No masses. No hernias. BONES: No significant or acute findings. OTHER: No other significant finding. IMPRESSION: Post cholecystectomy, appendectomy, hysterectomy and partial sigmoid colectomy. Patient drank oral contrast. No bowel obstruction. No other significant findings TECHNICAL DOCUMENTATION: JOB ID: [id number] Quality ID # 436: Final reports with documentation of one or more dose reduction techniques (e.g., Au tomated exposure control, adjustment of the mA and/or kV according to patient size, use of iterative reconstruction technique) 2010 [employer]- All Rights Reserved Reading location - IP/workstation name: [email or web address]
== END ==
LOC: RAD 08:52
PROVIDERS: ATTEND Surgery
DX: R10.33 Periumbilical pain (principal); K59.00 Constipation, unspecified; R10.12 Left upper quadrant pain; R10.31 Right lower quadrant pain
CPT/HCPCS: 74177; 82565

== ENCOUNTER 2018-08-26 08:48 | Day surgery (SDC) | payer MEDICAID ==
[~2018-08-26 08:48] MED LIST changes: -DIAZEPAM 5 MG TABLET ONE; +PROPOFOL INJ 200 MG/20 ML VIAL IV ONE
[2018-08-26] MEDS ORDERED: ONDANSETRON HCL INJ/PF 4 MG/2 ML SDV ONE (10:00)
--- NOTE | 2018-08-26 11:30 | Operative Report ---
Operative Report DATE OF SURGERY: 08/26/18 Operative Report: The risks, benefits and alternatives of the procedure including the risks of bleeding, perforation requiring surgery have been explained to the patient in detail and informed consent has been obtained. Patient is brought back to the endoscopy suite and placed in the left, lateral decubital position.. A rectal examination is done which did not reveal any masses, tears or fissures. An Olympus videoscope was introduced into the patient's rectum. The scope was then carefully advanced all the way to the cecum. The cecum was identified by the usual anatomical landmarks including the ileocecal valve as well as the appendiceal office. Photodocumentation was obtained. The scope was then sequentially pulled back via the various segments of the colon including the ascending colon, hepatic flexure, splenic flexure, descending colon, sigmoid colon and finally into the rectum. Retroflexion maneuvers performed. The risks benefits and alternatives of the procedure explained to the patient in detail and informed consent is obtained.A GIF Olympus video scope was inserted into the patient's mouth and hypopharynx, the esophagus is identified intubated and insufflated, the scope was then advanced through the esophagus stomach and duodenum retroflexion maneuver is done the esophagus stomach and first and second portions of the duodenum examined. PREOPERATIVE DIAGNOSIS: Change of bowel habits. Epigastric pain POSTOPERATIVE DIAGNOSIS: Gastritis and gastric erosions status post biopsy. Duodenitis. Small hiatal hernia seen. Right side colon Inflammation status post biopsy. Internal hemorrhoids OPERATION: Colonoscopy with biopsy. EGD with biopsy SURGEON: JEFF KUHN ANESTHESIA: LMAC TISSUE REMOVED OR ALTERED: As noted above. COMPLICATIONS: None. ESTIMATED BLOOD LOSS: None. INTRAOPERATIVE FINDINGS: As noted above. PROCEDURE: Patient tolerated the procedure well. No immediate postprocedure complications are noted. Patient discharged in good condition. Discharge date 08/26/2018. Discharge diet: Regular. Discharge activity: Regular. 2 to 3-week follow-up to discuss findings. Patient is instructed to call the office or proceed to the emergency room should there be any further problems or questions. Wait on the pathology. Likely can have a 10-year surveillance colonoscopy if all biopsies are negative.
[2018-08-26 11:34] VITALS: BP 130/67
== END 2018-08-26 11:35 | disposition home or self-care (01) ==
LOC: END 08:48
PROVIDERS: ATTEND Internal Medicine Gastroenterology
DX: K29.50 Unspecified chronic gastritis without bleeding (principal); K31.84 Gastroparesis; K29.80 Duodenitis without bleeding; K64.8 Other hemorrhoids; K52.9 Noninfective gastroenteritis and colitis, unspecified; K44.9 Diaphragmatic hernia without obstruction or gangrene; R06.02 Shortness of breath; I10 Essential (primary) hypertension; E78.5 Hyperlipidemia, unspecified; K58.9 Irritable bowel syndrome, unspecified
CPT/HCPCS: 43239; 45380; 88342 ×2; 88305 ×2; J2405; J2704; 813

== ENCOUNTER → 2018-09-06 | Outpatient (CLI) | payer MEDICAID | LOC: OD 10:32 | PROVIDERS: ATTEND Otolaryngology | DX: R09.81 Nasal congestion (principal) | CPT/HCPCS: 36415; 82785; 86003 ==

== ENCOUNTER → 2018-09-07 | Outpatient (CLI) | payer MEDICAID ==
--- NOTE | 2018-09-07 15:33 | WOMENS IMAGING REPORT ---
EXAM DESCRIPTION: 3D SCREENING MAMMO BILAT COMPLETED DATE/TIME: 09/07/2018 10:51 am REASON FOR STUDY: ROUTINE BILATERAL SCREENING;Z12.31 Z12.31 ENCNTR SCREEN MAMMOGRAM FOR MALIGNANT N EOPLASM OF TSERING COMPARISON: [id number] EXAM PARAMETERS: Views: Standard craniocaudal and mediolateral oblique views of each breast recorded using digital acquisition and breast tomosynthesis. Read with the assistance of CAD. .[facility] - [employer] Letter Version 9.2 LIMITATIONS: None. FINDINGS: No suspicious masses, suspicious calcifications or architectural distortion. No areas of c oncern. IMPRESSION: Assessment: Negative MAMMOGRAM. BIRADS 1. BREAST DENSITY: b. There are scattered areas of fibroglandular density. BIRAD: 1 NEGATIVE RECOMMENDATION: ROUTINE SCREENING COMMENT: The patient has been notified of the results by letter per MQSA requirements. Additional no tification policies are in place for contacting patient with suspicious or incomplete findings. Quality ID #225: [employer] recommends an annual screening mammogram for women aged 40 years or over. This facility utilizes a reminder system to ensure that all patients receive reminder letters, and/or direct phone calls for appointments. This includes reminders for routine scr eening mammograms, diagnostic mammograms, or other Breast Imaging Interventions when appropriate. Th is patient will be placed in the appropriate reminder system. TECHNICAL DOCUMENTATION: FINDING NUMBER: (1) ASSESSMENT: (1) JOB ID: [id number] [employer]- All Rights Reserved Reading location - IP/workstation name: [email or web address]
== END ==
LOC: WI 10:08
PROVIDERS: ATTEND Student in an Organized Health Care Education/Training Program
DX: Z12.31 Encounter for screening mammogram for malignant neoplasm of breast (principal)
CPT/HCPCS: 77063; 77067

== ENCOUNTER 2018-10-26 16:28 | Inpatient (IN) | payer MEDICAID ==
[2018-10-26 17:12] LABS: ABSOLUTE LYMPHOCYTES (AUTO) 1.5 10^3/uL (0.5-4.7); ABSOLUTE MONOCYTES (AUTO) 0.5 10^3/uL (0.1-1.4); ABSOLUTE NEUT (AUTO) 8.3 10^3/uL (1.7-8.2); BASOPHILS % (AUTO) 0.3 % (0-2); EOSINOPHILS % (AUTO) 0.5 % (0-6); HEMATOCRIT 42.2 % (36.0-47.0); HEMOGLOBIN 14.4 g/dL (12.0-15.5); LYMPHOCYTES % (AUTO) 14.3 % (13-45); MEAN CORPUSCULAR HEMOGLOBIN 29.8 pg (27.0-33.4); MEAN CORPUSCULAR HGB CONC 34.2 g/dL (32.0-36.0); MEAN CORPUSCULAR VOLUME 87 fl (80-97); PLATELET COUNT 244 10^3/uL (150-450); RED BLOOD COUNT 4.85 10^6/uL (3.72-5.28); RED CELL DISTRIBUTION WIDTH 12.7 % (11.5-14.0); SEGMENTED NEUTROPHILS % (AUTO) 79.9 % (42-78); TOTAL CELLS COUNTED % (AUTO) 100 %; WHITE BLOOD COUNT 10.3 10^3/uL (4.0-10.5)
[2018-10-26 17:32] LABS: ALANINE AMINOTRANSFERASE 26 U/L (9-52); ALBUMIN 4.5 g/dL (3.5-5.0); ALKALINE PHOSPHATASE 70 U/L (38-126); ANION GAP 11 (5-19); ASPARTATE AMINO TRANSFERASE 26 U/L (14-36); BILIRUBIN,DIRECT 0.3 mg/dL (0.0-0.4); BILIRUBIN,TOTAL 0.7 mg/dL (0.2-1.3); BLOOD UREA NITROGEN 13 mg/dL (7-20); CALCIUM 9.4 mg/dL (8.4-10.2); CARBON DIOXIDE 25 mmol/L (22-30); CHLORIDE 102 mmol/L (98-107); GLUCOSE 127 mg/dL (75-110); LIPASE 55.7 U/L (23-300); POTASSIUM 3.8 mmol/L (3.6-5.0); SODIUM 138.1 mmol/L (137-145); TOTAL PROTEIN 7.5 g/dL (6.3-8.2)
[2018-10-26] MEDS ORDERED: ONDANSETRON HCL INJ/PF 4 MG/2 ML SDV IV ONE ×2 (18:17→20:02)
[2018-10-26] MEDS ORDERED: MORPHINE SULFATE 10 MG/ML INJ IV ONE (18:17)
[2018-10-26] MEDS ORDERED: NORMAL SALINE 1000 ML 1,000 ML IV ONE (18:18)
--- NOTE | 2018-10-26 18:19 | ER Document Report ---
ED General - General Chief Complaint: Abdominal Pain Stated Complaint: ABDOMINAL PAIN Time Seen by Provider: 10/26/18 18:10 TRAVEL OUTSIDE OF THE [place] IN LAST 30 DAYS: No - HPI Notes: Patient is a 63-year-old female that presents to the emergency department for chief complaint of abdominal pain. Patient reports yesterday morning she had sudden onset of sharp abdominal pain. She states it is mostly in her epigastrium and radiates across her abdomen on both sides. She states the pain has been constant since onset. She reports multiple episodes of emesis since onset. Patient states the last time she had a bowel movement or passed any gas was prior to the onset of pain yesterday morning. She does report a history of bowel obstructions in the past. Patient has had multiple abdominal surgeries for hernia repair as well as cholecystectomy. She denies associated fevers or chills. She denies any chest pain or shortness of breath. Past Medical History: Reviewed in chart Past Surgical History: Ventral hernia mesh, cholecystectomy Social History: Lives at home. Denies drugs alcohol or tobacco Family History: Reviewed and noncontributory for presenting illness Allergies: Reviewed, see documented allergy list. REVIEW OF SYSTEMS: CONSTITUTIONAL : No fever No chills No diaphoresis No recent illness EENT: No vision changes No congestion No sore throat CARDIOVASCULAR: No chest pain No palpitations RESPIRATORY: No shortness of breath No cough No difficulty breathing GASTROINTESTINAL: abdominal pain nausea vomiting No diarrhea GENITOURINARY: No dysuria No hematuria No difficulty urinating MUSCULOSKELETAL: No back pain No leg pain No arm pain SKIN: No rashes No lesions LYMPHATIC: No swollen, enlarged glands. NEUROLOGICAL: No lightheadedness No headache No weakness No paresthesias PSYCHIATRIC: No anxiety No depression PHYSICAL EXAMINATION: Vital signs reviewed, nursing noted reviewed. GENERAL: Well-appearing, well-nourished and in no acute distress. HEAD: Atraumatic, normocephalic. EYES: Eyes appear normal, extraocular movements intact, sclera anicteric, conjunctiva are normal. ENT: nares patent, oropharynx clear without exudates. Moist mucous membranes. NECK: Normal range of motion, supple without lymphadenopathy LUNGS: Breath sounds clear to auscultation bilaterally and equal. No wheezes rales or rhonchi. HEART: Regular rate and rhythm without murmurs ABDOMEN: Soft, distended, diffusely tender to palpation. No rebound, guarding, or rigidity. No masses appreciated. EXTREMITIES: Nontender, good range of motion, no pitting or edema. NEUROLOGICAL: No focal neurological deficits. Moves all extremities spontaneously Motor and sensory grossly intact on exam. PSYCH: Normal mood, normal affect. SKIN: Warm, Dry, normal turgor, no rashes or lesions noted on exposed skin - Related Data Allergies/Adverse Reactions: IVP dye Allergy (Intermediate, Uncoded 08/26/18 08:55) rash Past Medical History - Social History Smoking Status: Never Smoker Family History: CAD, CVA, Malignancy Patient has suicidal ideation: No Patient has homicidal ideation: No - Past Medical History Cardiac Medical History: Reports: Hx Hypercholesterolemia, Hx Hypertension Pulmonary Medical History: Reports: Hx Pneumonia Denies: Hx Asthma, Hx Bronchitis, Hx COPD, Hx Respiratory Failure, Hx Sleep Apnea, Hx Tuberculosis Neurological Medical History: Reports: Hx Cerebrovascular Accident - Patient reports "mini stroke" Endocrine Medical History: Denies: Hx Diabetes Mellitus Type 1, Hx Diabetes Mellitus Type 2 Renal/ Medical History: Reports: Hx Kidney Stones. Denies: Hx End Stage Renal Disease, Hx Ovarian Cysts, Hx Peritoneal Dialysis Malignancy Medical History: Denies: Hx Breast Cancer, Hx Cervical Cancer, Hx Leukemia, Hx Lung Cancer, Hx Ovarian Cancer GI Medical History: Reports: Hx Gastroesophageal Reflux Disease, Hx Hiatal Hernia, Hx Ulcer. Denies: Hx Crohn's Disease, Hx Irritable Bowel, Hx Liver Failure, Hx Pancreatitis Musculoskeletal Medical History: Reports Hx Arthritis, Denies Hx Fibromyalgia, Denies Hx Multiple Sclerosis, Denies Hx Muscular Dystrophy Psychiatric Medical History: Reports: Hx Depression, Hx Post Traumatic Stress Disorder Denies: Hx Bipolar Disorder, Hx Dementia, Hx Schizophrenia Traumatic Medical History: Reports: Hx Fractures - left wrist Infectious Medical History: Denies: Hx HIV Past Surgical History: Reports: Hx Abdominal Surgery - Hernia mesh placed, Hx Adenoidectomy, Hx Appendectomy, Hx Cholecystectomy, Hx Hysterectomy, Hx Orthopedic Surgery - carpal tunnel, Other - Sigmoid colectomy, rectopexy Dr. Fowler 2013; abdominal wall hernia surg. Denies: Hx Bowel Surgery, Hx Section, Hx Colostomy, Hx Coronary Artery Bypass Graft, Hx Gastric Bypass Surgery, Hx Herniorrhaphy, Hx Mastectomy, Hx Pacemaker, Hx Tonsillectomy, Hx Tubal Ligation - Immunizations Hx Diphtheria, Pertussis, Tetanus Vaccination: Yes Hx Pneumococcal Vaccination: 01/17/18 Physical Exam - Vital signs Vitals: Temp Pulse Ox 98.7 F 96 10/26/18 16:48 10/26/18 16:48 Course - Re-evaluation Re-evalutation: 10/26/18 22:02 Vitals reviewed. Nursing notes reviewed. Patient has a distended and diffusely tender abdomen. Given her history of multiple abdominal surgeries and bowel obstruction I am clinically concerned for this at this point. KUB was ordered which shows no loops of small bowel or air-fluid levels. Patient has continued to be nauseated despite antiemetics. CT scan with oral contrast has been ordered to further investigate possible small bowel obstruction. Patient's lab work is grossly unremarkable. 10/26/18 22:21 Patient reevaluated and after the second dose of Zofran her nausea has resolved however she is still having significant abdominal pain. Patient does not wish to have another dose of morphine. CT scan does show small bowel obstruction. Her care was discussed with Dr. Ayala who will admit her for further care. NG tube has been ordered. Patient in agreement with this plan of care and stable at time of admission. Laboratory 10/26/18 10/26/18 10/26/18 16:56 16:56 16:56 WBC 10.3 RBC 4.85 Hgb 14.4 Hct 42.2 MCV 87 MCH 29.8 MCHC 34.2 RDW 12.7 Plt Count 244 Seg Neutrophils % 79.9 H Lymphocytes % 14.3 Monocytes % 5.0 Eosinophils % 0.5 Basophils % 0.3 Absolute Neutrophils 8.3 H Absolute Lymphocytes 1.5 Absolute Monocytes 0.5 Absolute Eosinophils 0.0 Absolute Basophils 0.0 Sodium 138.1 Potassium 3.8 Chloride 102 Carbon Dioxide 25 Anion Gap 11 BUN 13 Creatinine 0.64 Est GFR ( Amer) > 60 Est GFR (Non-Af Amer) > 60 Glucose 127 H Calcium 9.4 Total Bilirubin 0.7 Direct Bilirubin 0.3 Neonat Total Bilirubin Not Reportable Neonat Direct Bilirubin Not Reportable Neonat Indirect Bili Not Reportable AST 26 ALT 26 Alkaline Phosphatase 70 Troponin I < 0.012 Total Protein 7.5 Albumin 4.5 Lipase 55.7 Urine Color Urine Appearance Urine pH Ur Specific Wrens Urine Protein Urine Glucose (UA) Urine Ketones Urine Blood Urine Nitrite Urine Bilirubin Urine Urobilinogen Ur Leukocyte Esterase Urine WBC (Auto) Urine RBC (Auto) Squamous Epi Cells Auto Urine Mucus (Auto) Urine Ascorbic Acid 10/26/18 16:56 WBC RBC Hgb Hct MCV MCH MCHC RDW Plt Count Seg Neutrophils % Lymphocytes % Monocytes % Eosinophils % Basophils % Absolute Neutrophils Absolute Lymphocytes Absolute Monocytes Absolute Eosinophils Absolute Basophils Sodium Potassium Chloride Carbon Dioxide Anion Gap BUN Creatinine Est GFR ( Amer) Est GFR (Non-Af Amer) Glucose Calcium Total Bilirubin Direct Bilirubin Neonat Total Bilirubin Neonat Direct Bilirubin Neonat Indirect Bili AST ALT Alkaline Phosphatase Troponin I Total Protein Albumin Lipase Urine Color YELLOW Urine Appearance SLIGHTLY-CLOUDY Urine pH 7.0 Ur Specific Wrens 1.019 Urine Protein NEGATIVE Urine Glucose (UA) NEGATIVE Urine Ketones 20 H Urine Blood NEGATIVE Urine Nitrite NEGATIVE Urine Bilirubin NEGATIVE Urine Urobilinogen 2.0 H Ur Leukocyte Esterase NEGATIVE Urine WBC (Auto) 1 Urine RBC (Auto) 1 Squamous Epi Cells Auto 1 Urine Mucus (Auto) RARE Urine Ascorbic Acid NEGATIVE Abdomen/Pelvis CT 10/26/18 00:00 IMPRESSION: Mildly dilated fluid-filled loops of small bowel in the right upper quadrant, suspicious for small bowel obstruction with suspected transition point in the mid to lower abdomen as above. TECHNICAL DOCUMENTATION: Quality ID # 436: Final reports with documentation of one or more dose reduction techniques (e.g., Automated exposure control, adjustment of the mA and/or kV according to patient size, use of iterative reconstruction technique) copyright 2011 [employer]- All Rights Reserved Chest X-Ray 10/26/18 18:11 IMPRESSION: NO ACUTE FINDINGS. KUB X-Ray 10/26/18 18:17 IMPRESSION: NO RADIOGRAPHIC EVIDENCE FOR ACUTE ABDOMINAL DISEASE. Moderate constipation. - Vital Signs Vital signs: Temp Pulse Resp BP Pulse Ox 98.7 F 9 L 124/79 96 10/26/18 16:48 10/26/18 18:01 10/26/18 18:01 10/26/18 18:01 - Laboratory Result Diagrams: 10/26/18 16:56 10/26/18 16:56 Laboratory results interpreted by me: 10/26/18 10/26/18 10/26/18 16:56 16:56 16:56 Seg Neutrophils % 79.9 H Absolute Neutrophils 8.3 H Glucose 127 H Urine Ketones 20 H Urine Urobilinogen 2.0 H Discharge - Discharge Clinical Impression: Small bowel obstruction Condition: Stable Disposition: ADMITTED INPATIENT Admitting Provider: Surgicalist Unit Admitted: Surgical Floor
[2018-10-26 18:24] LABS: APPEARANCE,URINE SLIGHTLY-CLOUDY; BILIRUBIN,URINE NEGATIVE (NEGATIVE); COLOR,URINE YELLOW; GLUCOSE, URINE NEGATIVE (NEGATIVE); KETONES,URINE 20 mg/dL (NEGATIVE); LEUKOCYTE ESTERASE,URINE NEGATIVE (NEGATIVE); NITRITE,URINE NEGATIVE (NEGATIVE); PROTEIN,URINE NEGATIVE (NEGATIVE); URINE SPECIFIC GRAVITY 1.019
--- NOTE | 2018-10-26 18:38 | RADIOLOGY REPORT (SQ) ---
EXAM DESCRIPTION: CHEST SINGLE VIEW COMPLETED DATE/TIME: 10/26/2018 6:27 pm REASON FOR STUDY: chest pain COMPARISON: 05/07/2018 TECHNIQUE: Single frontal radiographic view of the chest acquired. NUMBER OF VIEWS: One view. LIMITATIONS: None. FINDINGS: LUNGS AND PLEURA: No pneumothorax. No consolidation or pleural effusion. MEDIASTINUM AND HILAR STRUCTURES: Stable. HEART AND VASCULAR STRUCTURES: Stable. BONES: No acute findings. HARDWARE: None in the chest. OTHER: No other significant finding. IMPRESSION: NO ACUTE FINDINGS. TECHNICAL DOCUMENTATION: JOB ID: [id number] [place]-72 2010 [employer]- All Rights Reserved Reading location - IP/workstation name: [email or web address]
--- NOTE | 2018-10-26 18:39 | RADIOLOGY REPORT (SQ) ---
EXAM DESCRIPTION: KUB/ABDOMEN (SINGLE VIEW) COMPLETED DATE/TIME: 10/26/2018 6:28 pm REASON FOR STUDY: abdominal pain COMPARISON: None. NUMBER OF VIEWS: One view. TECHNIQUE: Supine radiographic image of the abdomen acquired. LIMITATIONS: None. FINDINGS: BOWEL GAS PATTERN: Normal bowel gas pattern. No dilated loops. CONSTIPATION: moderate CALCIFICATIONS: No suspicious calcifications. SOFT TISSUES: No gross mass or suggestion of organomegaly. HARDWARE: Cholecystectomy clips. BONES: No acute fracture. No worrisome bone lesions. OTHER: No other significant finding. IMPRESSION: NO RADIOGRAPHIC EVIDENCE FOR ACUTE ABDOMINAL DISEASE. Moderate constipation. TECHNICAL DOCUMENTATION: JOB ID: [id number] [place]-72 2010 [employer]- All Rights Reserved Reading location - IP/workstation name: [email or web address]
[2018-10-26] MEDS ORDERED: FAMOTIDINE INJ/PF 20 MG/2 ML SDV IV ONE (19:15)
[2018-10-26] MEDS ORDERED: DIPHENHYDRAMINE HCL 50 MG/ML VIAL IV ONE (19:15)
[2018-10-26] MEDS ORDERED: METHYLPREDNISOLONE INJ 125 MG/2 ML SDV IV ONE (19:15)
--- NOTE | 2018-10-26 22:19 | RADIOLOGY REPORT (SQ) ---
EXAM DESCRIPTION: CT ABDOMEN PELVIS WITH IV CONTRAST COMPLETED DATE/TME: 10/26/2018 00:00 CLINICAL HISTORY: 63 years, Female, abdominal pain COMPARISON: 08/23/2018 CT TECHNIQUE: [id number] Images stored on PACS. All CT scanners at this facility use dose modulation, iterative reconstruction, and/or weight based dosing when appropriate to reduce radiation dose to as low as reasonably achievable (ALARA). [facility]: Dose Right [facility]: CareDose [facility]: Dose Right [facility]: Teradose 4D [facility]: [employer] LIMITATIONS: None. FINDINGS: The lung bases show minor scarring in each lung base. Osseous structures are grossly intact. The liver, spleen, adrenal glands, pancreas, kidneys are unremarkable. Surgical absence of the gallbladder. Distention of the stomach with contrast. Status post hysterectomy, appendectomy, and partial colectomy. Dilated fluid-filled loops of small bowel in the right upper quadrant, with suspected transition point in the mid to lower abdomen, image numbers 44 through 50, series #3. Maximal diameter of small bowel is 3.8 cm. No free air or free fluid. IMPRESSION: Mildly dilated fluid-filled loops of small bowel in the right upper quadrant, suspicious for small bowel obstruction with suspected transition point in the mid to lower abdomen as above. TECHNICAL DOCUMENTATION: Quality ID # 436: Final reports with documentation of one or more dose reduction techniques (e.g., Automated exposure control, adjustment of the mA and/or kV according to patient size, use of iterative reconstruction technique) copyright 2010 [employer]- All Rights Reserved
[2018-10-26] MEDS ORDERED: PHARMACY COMMUNICATION ORDER MC NR (22:30)
[2018-10-26] MEDS ORDERED: METOCLOPRAMIDE HCL INJ/PF 10 MG/2 ML SDV IV ONE (23:11)
--- NOTE | 2018-10-26 23:15 | PDOC H&P ---
History of Present Illness Admission Date/PCP: 10/26/18 22:31 PAGE MORE History of Present Illness: CARMEN HORTON is a 63 year old female e that presents to the emergency department for chief complaint of abdominal pain. Patient reports yesterday morning she had sudden onset of sharp abdominal pain. She states it is mostly in her epigastrium and radiates across her abdomen on both sides. She states the pain has been constant since onset. She reports multiple episodes of emesis since onset. Patient states the last time she had a bowel movement or passed any gas was prior to the onset of pain yesterday morning. She does report a history of bowel obstructions in the past. Patient has had multiple abdominal surgeries for hernia repair as well as cholecystectomy. She denies associated fevers or chills. She denies any chest pain or shortness of breath. Past Medical History Cardiac Medical History: Reports: Hyperlipidema, Hypertension Pulmonary Medical History: Reports: Pneumonia Denies: Asthma, Bronchitis, Chronic Obstructive Pulmonary Disease (COPD), Respiratory Failure, Sleep Apnea, Tuberculosis Neurological Medical History: Endocrine Medical History: Denies: Diabetes Mellitus Type 1, Diabetes Mellitus Type 2 Renal/ Medical History: Denies: End Stage Renal Disease Malignancy Medical History: Denies: Breast Cancer, Cervical Cancer, Leukemia, Lung Cancer, Ovarian Cancer GI Medical History: Reports: Gastroesophageal Reflux Disease, Hiatal Hernia Denies: Crohn's Disease Musculoskeltal Medical History: Reports: Arthritis Denies: Fibromyalgia Psychiatric Medical History: Reports: Depression, Post Traumatic Stress Disorder Denies: Bipolar Disorder, Dementia Hematology: Denies: Anemia, Hemophilia, Sickle Cell Disease Infectious Medical History: Denies: HIV Past Surgical History Past Surgical History: Reports: Adenoidectomy, Appendectomy, Cholecystectomy, Hysterectomy, Orthopedic Surgery - carpal tunnel, Other - Sigmoid colectomy, rectopexy Dr. Fowler 2013; abdominal wall hernia surg Denies: Amputation, Section, Colostomy, Coronary Artery Bypass Graft, Gastric Bypass Surgery, Herniorrhaphy, Mastectomy, Pacemaker, Tonsillectomy, Tubal Ligation Social History Smoking Status: Never Smoker Frequency of Alcohol Use: None Hx Recreational Drug Use: No Drugs: None Hx Prescription Drug Abuse: No Family History Family History: CAD, CVA, Malignancy Parental Family History Reviewed: No Children Family History Reviewed: NA Sibling(s) Family History Reviewed.: NA Medication/Allergy Home Medications: Amitriptyline HCl [Elavil 10 Mg Tablet] 20 mg PO QHS 07/01/18 Aspirin [Ecotrin] 81 mg PO DAILY 07/01/18 Cholecalciferol (Vitamin D3) [Vitamin D3 2000 unit Tablet] 2,000 unit PO DAILY 07/01/18 Eszopiclone [Lunesta] 3 mg PO HSP PRN 07/01/18 Famotidine [Pepcid 20 mg Tablet] 20 mg PO BID 07/01/18 Hydrochlorothiazide [Hydrodiuril 12.5 mg Tablet] 12.5 mg PO DAILY 07/01/18 Linaclotide [Linzess] 72 mcg PO QAM 07/01/18 Meclizine HCl [Antivert 12.5 mg Tablet] 12.5 mg PO BIDP PRN 07/01/18 Nitroglycerin [Nitrostat 0.4 mg (1/150 Gr) Tabs 25/Bottle] 1 tab SL Q5MP PRN 07/01/18 Omeprazole 40 mg PO Q6AM 07/01/18 Raloxifene HCl [Evista 60 mg Tablet] 60 mg PO DAILY 07/01/18 Simethicone [Mylicon 80 mg Chewable Tablet] 160 mg PO BIDP PRN 07/01/18 Simvastatin [Zocor 80 mg Tablet] 80 mg PO QHS 07/01/18 Acetaminophen [Tylenol] 325 mg PO PRN PRN 08/25/18 Oxymetazoline HCl [Nasal Garfield] 1 spray NS PRN PRN 08/25/18 Allergies/Adverse Reactions: IVP dye Allergy (Intermediate, Uncoded 08/26/18 08:55) rash Review of Systems Constitutional: PRESENT: fatigue, weakness Eyes: ABSENT: as per HPI, visual disturbances, other Ears: ABSENT: as per HPI, hearing changes, other Nose, Mouth, and Throat: ABSENT: as per HPI, headache(s), mouth pain, sore throat, vertigo, other Breasts: ABSENT: as per HPI, other Cardiovascular: ABSENT: as per HPI, chest pain, dyspnea on exertion, edema, orthropnea, palpitations, other Gastrointestinal: PRESENT: abdominal pain, constipation, heartburn, nausea, vomiting Genitourinary: ABSENT: as per HPI, difficulty urinating, dysuria, hematuria, nocturia, other Musculoskeletal: ABSENT: as per HPI, back pain, deformity, joint swelling, muscle weakness, other Integumentary: ABSENT: as per HPI, diaphoresis, erythema, lesions, pruritus, rash, wounds, other Neurological: ABSENT: as per HPI, abnormal gait, abnormal movements, abnormal speech, confusion, convulsions, dizziness, focal weakness, frequent falls, lack of coordination, memory loss, numbness, paresthesias, restless legs, syncope, tingling, tremor(s), vertigo, weakness, other Psychiatric: PRESENT: depression Endocrine: ABSENT: as per HPI, cold intolerance, flushing, heat intolerance, menstrual abnormalities, polydipsia, polyphagia, polyuria, other Hematologic/Lymphatic: ABSENT: as per HPI, easy bleeding, easy bruising, lym phadenopathy, other Allergic/Immunologic: ABSENT: as per HPI, seasonal rhinorrhea, other Physical Exam Vital Signs: Temp Pulse Resp BP Pulse Ox 98.7 F 9 L 124/79 96 10/26/18 16:48 10/26/18 18:01 10/26/18 18:01 10/26/18 18:01 Intake & Output 10/25/18 10/26/18 10/27/18 06:59 06:59 06:59 Intake Total 1000 Balance 1000 Weight 67.9 kg General appearance: PRESENT: mild distress Head exam: PRESENT: normocephalic Eye exam: PRESENT: EOMI Ear exam: PRESENT: normal external ear exam Mouth exam: PRESENT: dry mucosa Teeth exam: PRESENT: poor dentation Neck exam: PRESENT: full ROM Respiratory exam: PRESENT: clear to auscultation alice Cardiovascular exam: PRESENT: RRR Pulses: PRESENT: normal radial pulses, normal femoral pulses Vascular exam: PRESENT: normal capillary refill GI/Abdominal exam: PRESENT: other - Abdomen is softly distended multiple scars including a lower midline scar and a lower transverse scar. Abdomen is tender palpation the mid lower abdomen no peritoneal signs Rectal exam: PRESENT: deferred Extremities exam: PRESENT: full ROM Musculoskeletal exam: PRESENT: full ROM Neurological exam: PRESENT: alert, awake, oriented to person, oriented to place Psychiatric exam: PRESENT: appropriate affect Skin exam: PRESENT: dry Results Laboratory Results: 10/26/18 16:56 10/26/18 16:56 10/26/18 10/26/18 10/26/18 16:56 16:56 16:56 WBC 10.3 RBC 4.85 Hgb 14.4 Hct 42.2 MCV 87 MCH 29.8 MCHC 34.2 RDW 12.7 Plt Count 244 Seg Neutrophils % 79.9 H Lymphocytes % 14.3 Monocytes % 5.0 Eosinophils % 0.5 Basophils % 0.3 Absolute Neutrophils 8.3 H Absolute Lymphocytes 1.5 Absolute Monocytes 0.5 Absolute Eosinophils 0.0 Absolute Basophils 0.0 Sodium 138.1 Potassium 3.8 Chloride 102 Carbon Dioxide 25 Anion Gap 11 BUN 13 Creatinine 0.64 Est GFR ( Amer) > 60 Est GFR (Non-Af Amer) > 60 Glucose 127 H Calcium 9.4 Total Bilirubin 0.7 AST 26 ALT 26 Alkaline Phosphatase 70 Total Protein 7.5 Albumin 4.5 Lipase 55.7 Urine Color YELLOW Urine Appearance SLIGHTLY-CLOUDY Urine pH 7.0 Ur Specific Stephens 1.019 Urine Protein NEGATIVE Urine Glucose (UA) NEGATIVE Urine Ketones 20 H Urine Blood NEGATIVE Urine Nitrite NEGATIVE Ur Leukocyte Esterase NEGATIVE Urine WBC (Auto) 1 Urine RBC (Auto) 1 10/26/18 16:56 Troponin I < 0.012 Impressions: Abdomen/Pelvis CT 10/26/18 00:00 IMPRESSION: Mildly dilated fluid-filled loops of small bowel in the right upper quadrant, suspicious for small bowel obstruction with suspected transition point in the mid to lower abdomen as above. TECHNICAL DOCUMENTATION: Quality ID # 436: Final reports with documentation of one or more dose reduction techniques (e.g., Automated exposure control, adjustment of the mA and/or kV according to patient size, use of iterative reconstruction technique) copyright 2011 [employer]- All Rights Reserved Chest X-Ray 10/26/18 18:11 IMPRESSION: NO ACUTE FINDINGS. KUB X-Ray 10/26/18 18:17 IMPRESSION: NO RADIOGRAPHIC EVIDENCE FOR ACUTE ABDOMINAL DISEASE. Moderate constipation. Assessment & Plan - Plan Summary Plan Summary: Impression small bowel obstruction Plan we will place NG tube admit the patient for IV hydration We will plan on small bowel series with Gastrografin in the morning Patient has had multiple admissions for small bowel obstructions over the last year or 2 proximately 7 times
--- NOTE | 2018-10-26 23:27 | RADIOLOGY REPORT (SQ) ---
EXAM DESCRIPTION: XR ABDOMEN 1 VIEW (KUB) COMPLETED DATE/TME: 10/26/2018 22:21 CLINICAL HISTORY: Check Placement of NG Tube COMPARISON: 10/26/2018 FINDINGS: Bowel: Dilated loops of small bowel in the right upper abdomen. Air identified in the colon. Peritoneum: No free intraperitoneal air identified. Solid organs: No definite organomegaly. Calcifications: No abnormal calcifications. Bones: Degenerative change of the spine. Other: G-tube with tip curled in the stomach. Contrast identified in the renal collecting system. IMPRESSION: 1. NG tube curled in the stomach in appropriate position. 2. Dilated loops of small bowel with air identified in the colon. These findings could be seen with partial small bowel obstruction.
--- NOTE | 2018-10-27 00:02 | EKG REPORT ---
SEVERITY:- BORDERLINE ECG - SINUS RHYTHM BORDERLINE T WAVE ABNORMALITIES : Confirmed by: Yari Gamboa MD 27-Oct-2018 00:00:21
[2018-10-27] MEDS: MORPHINE SULFATE 10 MG/ML INJ IV PRN ×4 (00:55→23:00)
[2018-10-27] MEDS: DEXTROSE 5%-LACTATED RINGERS 1,000 ML IV PRN (00:57)
[2018-10-27] MEDS: HEPARIN SOD (PORCINE) 5,000 UNIT/ML 1 ML SYRINGE SUBCUT SCH ×3 (05:35→21:50)
[2018-10-27] MEDS: ONDANSETRON HCL INJ/PF 4 MG/2 ML SDV IV PRN ×2 (06:13→12:49)
[2018-10-27 07:39] LABS: ABSOLUTE LYMPHOCYTES (AUTO) 0.6 10^3/uL (0.5-4.7); ABSOLUTE MONOCYTES (AUTO) 0.2 10^3/uL (0.1-1.4); ABSOLUTE NEUT (AUTO) 6.2 10^3/uL (1.7-8.2); BASOPHILS % (AUTO) 0.2 % (0-2); HEMATOCRIT 39.1 % (36.0-47.0); HEMOGLOBIN 13.1 g/dL (12.0-15.5); LYMPHOCYTES % (AUTO) 8.7 % (13-45); MEAN CORPUSCULAR HEMOGLOBIN 29.8 pg (27.0-33.4); MEAN CORPUSCULAR HGB CONC 33.6 g/dL (32.0-36.0); MEAN CORPUSCULAR VOLUME 89 fl (80-97); MONOCYTES % (AUTO) 2.5 % (3-13); PLATELET COUNT 209 10^3/uL (150-450); RED BLOOD COUNT 4.41 10^6/uL (3.72-5.28); RED CELL DISTRIBUTION WIDTH 12.7 % (11.5-14.0); SEGMENTED NEUTROPHILS % (AUTO) 88.6 % (42-78); TOTAL CELLS COUNTED % (AUTO) 100 %
[2018-10-27 08:07] LABS: ALANINE AMINOTRANSFERASE 23 U/L (9-52); ALBUMIN 3.9 g/dL (3.5-5.0); ALKALINE PHOSPHATASE 57 U/L (38-126); ANION GAP 8 (5-19); ASPARTATE AMINO TRANSFERASE 25 U/L (14-36); BILIRUBIN,DIRECT 0.3 mg/dL (0.0-0.4); BILIRUBIN,TOTAL 0.5 mg/dL (0.2-1.3); BLOOD UREA NITROGEN 11 mg/dL (7-20); CALCIUM 8.7 mg/dL (8.4-10.2); CARBON DIOXIDE 27 mmol/L (22-30); CHLORIDE 105 mmol/L (98-107); GLUCOSE 185 mg/dL (75-110); LIPASE 88.8 U/L (23-300); POTASSIUM 4.1 mmol/L (3.6-5.0); SODIUM 139.5 mmol/L (137-145); TOTAL PROTEIN 6.6 g/dL (6.3-8.2)
[2018-10-27] MEDS ORDERED: HYDROMORPHONE HCL INJ/PF 2 MG/ML AMPULE ONE (09:28)
[2018-10-27] MEDS ORDERED: FENTANYL CITRATE INJ/PF 250 MCG/5 ML AMPULE ONE (09:28)
[2018-10-27] MEDS ORDERED: MIDAZOLAM 2 MG/2 ML INJ ONE (09:29)
[2018-10-27] MEDS ORDERED: PROPOFOL INJ 200 MG/20 ML VIAL IV ONE (09:29)
[2018-10-27] MEDS ORDERED: BUPIVACAINE HCL 0.25 % INJ/PF (2.5 MG/1 ML) 30 ML VIAL ONE (09:44)
--- NOTE | 2018-10-27 09:44 | RADIOLOGY REPORT (SQ) ---
EXAM DESCRIPTION: ABDOMEN 2 VIEWS COMPLETED DATE/TIME: 10/27/2018 9:22 am REASON FOR STUDY: f/u sbo COMPARISON: 10/26/2018 NUMBER OF VIEWS: Two views. TECHNIQUE: Supine and erect/decubitus radiographic images of the abdomen acquired. LIMITATIONS: None. FINDINGS: FREE AIR: None. No abnormal gas collections. LUNG BASES: Clear. BOWEL GAS PATTERN: NG tube remains in place. There is air and contrast within the colon. Single mil dly prominent loop of small bowel is noted in the right upper quadrant. CALCIFICATIONS: No suspicious calcifications. SOFT TISSUES: No gross mass or suggestion of organomegaly. HARDWARE: None in the abdomen. BONES: No acute fracture. No worrisome bone lesions. OTHER: No other significant finding. IMPRESSION: Gas pattern is nonspecific. NG tube remains in place. Small-bowel distention previousl y described has largely resolved. TECHNICAL DOCUMENTATION: JOB ID: [id number] [employer]- All Rights Reserved Reading location - IP/workstation name: [email or web address]
--- NOTE | 2018-10-27 09:59 | PDOC PROGRESS REPORT ---
Subjective Progress Note for:: 10/27/18 Subjective:: Some epigastric abdominal pain. not passing any gas. Reason For Visit: SMALL BOWEL OBSTRUCTION Physical Exam Vital Signs: Temp Pulse Resp BP Pulse Ox 98.3 F 70 15 116/60 96 10/27/18 07:24 10/27/18 07:24 10/27/18 07:24 10/27/18 07:24 10/27/18 07:24 Intake & Output 10/26/18 10/27/18 10/28/18 06:59 06:59 06:59 Intake Total 1000 Balance 1000 Weight 67.4 kg General appearance: PRESENT: no acute distress, cooperative Respiratory exam: PRESENT: clear to auscultation alice Cardiovascular exam: PRESENT: RRR GI/Abdominal exam: PRESENT: other - Soft, mildly distended, mildly tender in the upper abdomen. NG tube output is bile tinged Extremities exam: PRESENT: other - No swelling and no tenderness Skin exam: PRESENT: warm Results Laboratory Results: 10/27/18 06:10 10/27/18 06:10 10/26/18 10/26/18 10/26/18 16:56 16:56 16:56 WBC 10.3 RBC 4.85 Hgb 14.4 Hct 42.2 MCV 87 MCH 29.8 MCHC 34.2 RDW 12.7 Plt Count 244 Seg Neutrophils % 79.9 H Lymphocytes % 14.3 Monocytes % 5.0 Eosinophils % 0.5 Basophils % 0.3 Absolute Neutrophils 8.3 H Absolute Lymphocytes 1.5 Absolute Monocytes 0.5 Absolute Eosinophils 0.0 Absolute Basophils 0.0 Sodium 138.1 Potassium 3.8 Chloride 102 Carbon Dioxide 25 Anion Gap 11 BUN 13 Creatinine 0.64 Est GFR ( Amer) > 60 Est GFR (Non-Af Amer) > 60 Glucose 127 H Calcium 9.4 Phosphorus Magnesium Total Bilirubin 0.7 AST 26 ALT 26 Alkaline Phosphatase 70 Total Protein 7.5 Albumin 4.5 Lipase 55.7 Urine Color YELLOW Urine Appearance SLIGHTLY-CLOUDY Urine pH 7.0 Ur Specific [place] 1.019 Urine Protein NEGATIVE Urine Glucose (UA) NEGATIVE Urine Ketones 20 H Urine Blood NEGATIVE Urine Nitrite NEGATIVE Ur Leukocyte Esterase NEGATIVE Urine WBC (Auto) 1 Urine RBC (Auto) 1 10/27/18 10/27/18 06:10 06:10 WBC 7.0 RBC 4.41 Hgb 13.1 Hct 39.1 MCV 89 MCH 29.8 MCHC 33.6 RDW 12.7 Plt Count 209 Seg Neutrophils % 88.6 H Lymphocytes % 8.7 L Monocytes % 2.5 L Eosinophils % 0.0 Basophils % 0.2 Absolute Neutrophils 6.2 Absolute Lymphocytes 0.6 Absolute Monocytes 0.2 Absolute Eosinophils 0.0 Absolute Basophils 0.0 Sodium 139.5 Potassium 4.1 Chloride 105 Carbon Dioxide 27 Anion Gap 8 BUN 11 Creatinine 0.59 Est GFR ( Amer) > 60 Est GFR (Non-Af Amer) > 60 Glucose 185 H Calcium 8.7 Phosphorus 3.0 Magnesium 2.2 Total Bilirubin 0.5 AST 25 ALT 23 Alkaline Phosphatase 57 Total Protein 6.6 Albumin 3.9 Lipase 88.8 Urine Color Urine Appearance Urine pH Ur Specific Outlook Urine Protein Urine Glucose (UA) Urine Ketones Urine Blood Urine Nitrite Ur Leukocyte Esterase Urine WBC (Auto) Urine RBC (Auto) 10/26/18 16:56 Troponin I < 0.012 Impressions: Abdomen/Pelvis CT 10/26/18 00:00 IMPRESSION: Mildly dilated fluid-filled loops of small bowel in the right upper quadrant, suspicious for small bowel obstruction with suspected transition point in the mid to lower abdomen as above. TECHNICAL DOCUMENTATION: Quality ID # 436: Final reports with documentation of one or more dose reduction techniques (e.g., Automated exposure control, adjustment of the mA and/or kV according to patient size, use of iterative reconstruction technique) copyright 2011 [employer]- All Rights Reserved Chest X-Ray 10/26/18 18:11 IMPRESSION: NO ACUTE FINDINGS. KUB X-Ray 10/26/18 22:21 IMPRESSION: 1. NG tube curled in the stomach in appropriate position. 2. Dilated loops of small bowel with air identified in the colon. These findings could be seen with partial small bowel obstruction. Assessment & Plan - Diagnosis (1) Small bowel obstruction Is this a current diagnosis for this admission?: Yes Plan: Patient with multiple prior episodes of partial small bowel obstruction in the past year. In light of the CT scan and her multiple recurrences, I had recommended exploratory laparotomy with possible bowel resection to the patient. However her abdominal x-rays this morning is suggestive of resolved small bowel obstruction. I have reviewed the film with the radiologist and he does not see evidence of bowel obstruction on the current x-rays. I have canceled her surgery for now. I will obtain small bowel series this morning. And reevaluate later.
[2018-10-27] MEDS ORDERED: FAMOTIDINE INJ/PF 20 MG/2 ML SDV IV SCH (10:00)
--- NOTE | 2018-10-27 13:39 | RADIOLOGY REPORT (SQ) ---
EXAM DESCRIPTION: SMALL BOWEL SERIES COMPLETED DATE/TIME: 10/27/2018 12:33 pm REASON FOR STUDY: Rule out bowel obstruction ABDOMINAL PAIN COMPARISON: CT abdomen and pelvis 10/26/2018. FLUOROSCOPY TIME: 0.8 minutes of fluoroscopy was used. 10 images saved to PACS. LIMITATIONS: Retained contrast from previous CT abdomen and pelvis and use of Gastrografin PROCEDURE: Initial auto body customizer image of abdomen acquired, followed by administration of oral contrast. Se rial radiographic images acquired. Fluoroscopic images recorded of the terminal ileum and other cali cated areas. All images stored on PACS. FINDINGS: NOVELTY [employer] KUB: Contrast seen in the ascending colon from previous CT abdomen pelvis. . No ab normal calcifications. Soft tissue planes normal. STOMACH: No significant reflux. Normal distention without abnormality. DUODENUM: Duodenal diverticulum seen projecting medially off the 4th portion the duodenum. JEJUNUM: Normal mucosal pattern. No dilatation, segmentation, strictures or masses. ILEUM: Normal mucosal pattern. No dilatation, segmentation, strictures or masses. TERMINAL ILEUM AND ILEO-CECAL VALVE: Limited visualization although there does not appear to be delay in in passage of contrast into the colon. PROXIMAL COLON: Incompletely imaged. No abnormality. OTHER: Transit time through the small bowel is normal with contrast entering the colon by the 1 hour image. Patient did have multiple bowel movements by the end of the study. IMPRESSION: NORMAL SMALL BOWEL EXAM. NO EVIDENCE OF SMALL-BOWEL OBSTRUCTION. COMMENT: Quality ID 145: Final reports for procedures using fluoroscopy that document radiation exp osure indices, or exposure time and number of fluorographic images (if radiation exposure indices are not available) TECHNICAL DOCUMENTATION: JOB ID: [id number] [email or web address]- All Rights Reserved Reading location - IP/workstation name: [email or web address]
--- NOTE | 2018-10-27 17:25 | PDOC PROGRESS REPORT ---
Subjective Progress Note for:: 10/27/18 Subjective:: Had nausea and vomiting with clear liquids. Having some heartburn. Still having bowel movements. Reason For Visit: SMALL BOWEL OBSTRUCTION Physical Exam Vital Signs: Temp Pulse Resp BP Pulse Ox 98.1 F 75 18 118/76 99 10/27/18 15:55 10/27/18 15:55 10/27/18 15:55 10/27/18 15:55 10/27/18 15:55 Intake & Output 10/26/18 10/27/18 10/28/18 06:59 06:59 06:59 Intake Total 1000 Balance 1000 Weight 67.4 kg General appearance: PRESENT: no acute distress, cooperative GI/Abdominal exam: PRESENT: other - Soft, nondistended, mild epigastric abdominal tenderness without peritoneal signs. Results Laboratory Results: 10/27/18 06:10 10/27/18 06:10 10/26/18 10/26/18 10/27/18 16:56 16:56 06:10 WBC 7.0 RBC 4.41 Hgb 13.1 Hct 39.1 MCV 89 MCH 29.8 MCHC 33.6 RDW 12.7 Plt Count 209 Seg Neutrophils % 88.6 H Lymphocytes % 8.7 L Monocytes % 2.5 L Eosinophils % 0.0 Basophils % 0.2 Absolute Neutrophils 6.2 Absolute Lymphocytes 0.6 Absolute Monocytes 0.2 Absolute Eosinophils 0.0 Absolute Basophils 0.0 Sodium 138.1 Potassium 3.8 Chloride 102 Carbon Dioxide 25 Anion Gap 11 BUN 13 Creatinine 0.64 Est GFR ( Amer) > 60 Est GFR (Non-Af Amer) > 60 Glucose 127 H Calcium 9.4 Phosphorus Magnesium Total Bilirubin 0.7 AST 26 ALT 26 Alkaline Phosphatase 70 Total Protein 7.5 Albumin 4.5 Lipase 55.7 Urine Color YELLOW Urine Appearance SLIGHTLY-CLOUDY Urine pH 7.0 Ur Specific [place] 1.019 Urine Protein NEGATIVE Urine Glucose (UA) NEGATIVE Urine Ketones 20 H Urine Blood NEGATIVE Urine Nitrite NEGATIVE Ur Leukocyte Esterase NEGATIVE Urine WBC (Auto) 1 Urine RBC (Auto) 1 10/27/18 06:10 WBC RBC Hgb Hct MCV MCH MCHC RDW Plt Count Seg Neutrophils % Lymphocytes % Monocytes % Eosinophils % Basophils % Absolute Neutrophils Absolute Lymphocytes Absolute Monocytes Absolute Eosinophils Absolute Basophils Sodium 139.5 Potassium 4.1 Chloride 105 Carbon Dioxide 27 Anion Gap 8 BUN 11 Creatinine 0.59 Est GFR ( Amer) > 60 Est GFR (Non-Af Amer) > 60 Glucose 185 H Calcium 8.7 Phosphorus 3.0 Magnesium 2.2 Total Bilirubin 0.5 AST 25 ALT 23 Alkaline Phosphatase 57 Total Protein 6.6 Albumin 3.9 Lipase 88.8 Urine Color Urine Appearance Urine pH Ur Specific [place] Urine Protein Urine Glucose (UA) Urine Ketones Urine Blood Urine Nitrite Ur Leukocyte Esterase Urine WBC (Auto) Urine RBC (Auto) 10/26/18 16:56 Troponin I < 0.012 Impressions: Abdomen/Pelvis CT 10/26/18 00:00 IMPRESSION: Mildly dilated fluid-filled loops of small bowel in the right upper quadrant, suspicious for small bowel obstruction with suspected transition point in the mid to lower abdomen as above. TECHNICAL DOCUMENTATION: Quality ID # 436: Final reports with documentation of one or more dose reduction techniques (e.g., Automated exposure control, adjustment of the mA and/or kV according to patient size, use of iterative reconstruction technique) copyright 2011 [employer]- All Rights Reserved Chest X-Ray 10/26/18 18:11 IMPRESSION: NO ACUTE FINDINGS. KUB X-Ray 10/26/18 22:21 IMPRESSION: 1. NG tube curled in the stomach in appropriate position. 2. Dilated loops of small bowel with air identified in the colon. These findings could be seen with partial small bowel obstruction. Small Bowel X-Ray 10/27/18 00:00 IMPRESSION: NORMAL SMALL BOWEL EXAM. NO EVIDENCE OF SMALL-BOWEL OBSTRUCTION. Abdomen X-Ray 10/27/18 09:00 IMPRESSION: Gas pattern is nonspecific. NG tube remains in place. Small-bowel distention previously described has largely resolved. Assessment & Plan - Diagnosis (1) Small bowel obstruction Is this a current diagnosis for this admission?: Yes Plan: Does not appear obstructed on small bowel follow series with Gastrografin. Uncertain why she had nausea and vomiting are clear liquids when contrast goes straight through. Will maintain patient n.p.o. for now leave on IV fluids. Try Protonix IV. May try a diet again tomorrow with Reglan.
[2018-10-27] MEDS: PANTOPRAZOLE SODIUM 40 MG VIAL IV SCH (18:52)
[2018-10-28] MEDS: MORPHINE SULFATE 10 MG/ML INJ IV PRN ×2 (03:46→07:54)
[2018-10-28] MEDS: HEPARIN SOD (PORCINE) 5,000 UNIT/ML 1 ML SYRINGE SUBCUT SCH ×3 (05:31→21:40)
[2018-10-28] MEDS: PANTOPRAZOLE SODIUM 40 MG VIAL IV SCH ×2 (05:31→17:23)
[2018-10-28] MEDS: ONDANSETRON HCL INJ/PF 4 MG/2 ML SDV IV PRN ×4 (05:39→22:13)
[2018-10-28] MEDS: DEXTROSE 5%-LACTATED RINGERS 1,000 ML IV PRN ×3 (05:58→21:41)
--- NOTE | 2018-10-28 12:58 | PDOC PROGRESS REPORT ---
Subjective Progress Note for:: 10/28/18 Subjective:: Patient still nauseated wants to try clear liquids. She did have multiple bowel movements, loose. Her upper GI and small bowel follow through series showed no evidence of mechanical obstruction. Reason For Visit: SMALL BOWEL OBSTRUCTION Physical Exam Vital Signs: Temp Pulse Resp BP Pulse Ox 98.2 F 65 16 146/57 H 95 10/28/18 12:02 10/28/18 12:02 10/28/18 12:02 10/28/18 12:02 10/28/18 12:02 Intake & Output 10/27/18 10/28/18 10/29/18 06:59 06:59 06:59 Intake Total 1000 Balance 1000 Weight 67.4 kg General appearance: PRESENT: no acute distress GI/Abdominal exam: PRESENT: other - Soft, nontender no peritoneal signs no rigidity. minimal tenderness to deep palpation Results Laboratory Results: 10/27/18 06:10 10/27/18 06:10 10/26/18 16:56 Troponin I < 0.012 Impressions: Abdomen/Pelvis CT 10/26/18 00:00 IMPRESSION: Mildly dilated fluid-filled loops of small bowel in the right upper quadrant, suspicious for small bowel obstruction with suspected transition point in the mid to lower abdomen as above. TECHNICAL DOCUMENTATION: Quality ID # 436: Final reports with documentation of one or more dose reduction techniques (e.g., Automated exposure control, adjustment of the mA and/or kV according to patient size, use of iterative reconstruction technique) copyright 2011 [employer]- All Rights Reserved Chest X-Ray 10/26/18 18:11 IMPRESSION: NO ACUTE FINDINGS. KUB X-Ray 10/26/18 22:21 IMPRESSION: 1. NG tube curled in the stomach in appropriate position. 2. Dilated loops of small bowel with air identified in the colon. These findings could be seen with partial small bowel obstruction. Small Bowel X-Ray 10/27/18 00:00 IMPRESSION: NORMAL SMALL BOWEL EXAM. NO EVIDENCE OF SMALL-BOWEL OBSTRUCTION. Abdomen X-Ray 10/27/18 09:00 IMPRESSION: Gas pattern is nonspecific. NG tube remains in place. Small-bowel distention previously described has largely resolved. Assessment & Plan - Diagnosis (1) Chronic pain Is this a current diagnosis for this admission?: Yes Plan: Impression: Slightly improved clinically; no evidence of mechanical bowel obstruction based on contrast moving throughout her GI tract and appropriate timeframe. Recommendations: 1. We will start patient on clear liquids 2. Patient has chronic abdominal pain for many years, has received multiple types of treatment including medical and surgical therapy, from multiple providers over a 20-year span without resolution. 3. Hopefully patient can be discharged in the next 24 to 48 hours.
[2018-10-28] MEDS: MAG HYDROX/AL HYDROX/SIMETH SUSP 30 ML UDCUP PO PRN (13:51)
[2018-10-28] MEDS: IBUPROFEN 400 MG TABLET PO PRN ×2 (14:31→22:12)
[2018-10-29] MEDS: IBUPROFEN 400 MG TABLET PO PRN ×2 (05:23→14:03)
[2018-10-29] MEDS: ONDANSETRON HCL INJ/PF 4 MG/2 ML SDV IV PRN ×2 (05:23→11:39)
[2018-10-29] MEDS: PANTOPRAZOLE SODIUM 40 MG VIAL IV SCH ×2 (05:23→17:51)
[2018-10-29] MEDS: HEPARIN SOD (PORCINE) 5,000 UNIT/ML 1 ML SYRINGE SUBCUT SCH ×3 (05:23→21:15)
[2018-10-29] MEDS: MAG HYDROX/AL HYDROX/SIMETH SUSP 30 ML UDCUP PO PRN (10:22)
--- NOTE | 2018-10-29 11:10 | PDOC PROGRESS REPORT ---
Subjective Progress Note for:: 10/29/18 Reason For Visit: SMALL BOWEL OBSTRUCTION Physical Exam Vital Signs: Temp Pulse Resp BP Pulse Ox 97.4 F 66 16 133/67 H 99 10/29/18 03:30 10/29/18 03:30 10/29/18 03:30 10/29/18 03:30 10/29/18 03:30 Intake & Output 10/28/18 10/29/18 10/30/18 06:59 06:59 06:59 Weight 67.9 kg General appearance: PRESENT: no acute distress Eye exam: PRESENT: EOMI Mouth exam: PRESENT: moist Neck exam: PRESENT: full ROM Respiratory exam: PRESENT: clear to auscultation alice Cardiovascular exam: PRESENT: RRR Pulses: PRESENT: +2 pedal pulses bilateral Vascular exam: PRESENT: normal capillary refill GI/Abdominal exam: PRESENT: soft Rectal exam: PRESENT: deferred Extremities exam: PRESENT: full ROM Musculoskeletal exam: PRESENT: full ROM Neurological exam: PRESENT: alert, awake, oriented to person Skin exam: PRESENT: dry Results Laboratory Results: 10/27/18 06:10 10/27/18 06:10 10/26/18 16:56 Troponin I < 0.012 Impressions: Abdomen/Pelvis CT 10/26/18 00:00 IMPRESSION: Mildly dilated fluid-filled loops of small bowel in the right upper quadrant, suspicious for small bowel obstruction with suspected transition point in the mid to lower abdomen as above. TECHNICAL DOCUMENTATION: Quality ID # 436: Final reports with documentation of one or more dose reduction techniques (e.g., Automated exposure control, adjustment of the mA and/or kV according to patient size, use of iterative reconstruction technique) copyright 2011 [employer]- All Rights Reserved Chest X-Ray 10/26/18 18:11 IMPRESSION: NO ACUTE FINDINGS. KUB X-Ray 10/26/18 22:21 IMPRESSION: 1. NG tube curled in the stomach in appropriate position. 2. Dilated loops of small bowel with air identified in the colon. These findings could be seen with partial small bowel obstruction. Small Bowel X-Ray 10/27/18 00:00 IMPRESSION: NORMAL SMALL BOWEL EXAM. NO EVIDENCE OF SMALL-BOWEL OBSTRUCTION. Abdomen X-Ray 10/27/18 09:00 IMPRESSION: Gas pattern is nonspecific. NG tube remains in place. Small-bowel distention previously described has largely resolved. Assessment & Plan - Plan Summary Plan Summary: Impression small bowel obstruction now resolved patient now passing flatus and tolerating clear liquid diet
[2018-10-29] MEDS ORDERED: MAG HYDROX/AL HYDROX/SIMETH SUSP 30 ML UDCUP NG PRN (15:30)
[2018-10-29] MEDS ORDERED: IBUPROFEN 400 MG TABLET NG PRN (15:30)
[2018-10-29] MEDS ORDERED: (PENDING PHARMACY ID) (Linaclotide 145 MCG) PO SCH (16:00)
[2018-10-29] MEDS: METOCLOPRAMIDE HCL 10 MG TABLET PO SCH ×2 (16:36→21:19)
[2018-10-29] MEDS ORDERED: ZOLPIDEM TARTRATE 5 MG TABLET PO PRN (22:00)
[2018-10-30] MEDS: FLUTICASONE NASAL SPRAY 50 MCG/SPRY 120 SPRAY/16 GM NASL SCH ×2 (02:10→09:10)
[2018-10-30] MEDS: METOCLOPRAMIDE HCL 10 MG TABLET PO SCH ×2 (03:10→09:08)
[2018-10-30] MEDS: PANTOPRAZOLE SODIUM 40 MG VIAL IV SCH (05:37)
[2018-10-30] MEDS: HEPARIN SOD (PORCINE) 5,000 UNIT/ML 1 ML SYRINGE SUBCUT SCH (05:37)
[2018-10-30] MEDS ORDERED: (PENDING PHARMACY ID) (Linaclotide 145 MCG) PO SCH (08:00)
[2018-10-30] MEDS ORDERED: MAG HYDROX/AL HYDROX/SIMETH SUSP 30 ML UDCUP PO PRN (09:00)
[2018-10-30] MEDS ORDERED: IBUPROFEN 400 MG TABLET PO PRN (09:00)
--- NOTE | 2018-10-30 10:37 | PDOC DISCHARGE SUMMARY ---
General - Admit/Disc Date/PCP Admission Date/Primary Care Provider: 10/26/18 22:31 MAGDALENA SHAH PA-C Discharge Date: 10/30/18 - Discharge Diagnosis (1) Small bowel obstruction Is this a current diagnosis for this admission?: Yes - Additional Information Resuscitation Status: Full Code Discharge Diet: As Tolerated Discharge Activity: Activity As Tolerated Home Medications: Amitriptyline HCl [Elavil 10 mg Tablet] 20 mg PO QHS 07/01/18 Aspirin [Ecotrin] 81 mg PO DAILY 07/01/18 Eszopiclone [Lunesta] 3 mg PO HSP PRN 07/01/18 Famotidine [Pepcid 20 mg Tablet] 20 mg PO BID 07/01/18 Hydrochlorothiazide [Hydrodiuril 12.5 mg Tablet] 12.5 mg PO DAILY 07/01/18 Meclizine HCl [Antivert 12.5 mg Tablet] 12.5 mg PO BIDP PRN 07/01/18 Nitroglycerin [Nitrostat 0.4 mg (1/150 Gr) Tabs 25/Bottle] 1 tab SL Q5MP PRN 07/01/18 Omeprazole 40 mg PO Q6AM 07/01/18 Raloxifene HCl [Evista 60 mg Tablet] 60 mg PO ACBRKFST 07/01/18 Simvastatin [Zocor 80 mg Tablet] 80 mg PO QHS 07/01/18 Fluticasone Propionate [Flonase Nasal [place] 50 Mcg/[place] 16 gm] 2 spray NASL DAILYP PRN 10/27/18 Linaclotide [Linzess 145 Mcg Capsule] 145 mcg PO ACBRKFST 10/27/18 Ondansetron HCl [Zofran 8 mg Tablet] 8 mg PO Q8HP PRN 10/27/18 Metoclopramide HCl [Reglan 10 mg Tablet] 10 mg PO .4 TIMES A DAY 10/29/18 Fluticasone Propionate [Flonase Nasal [place] 50 Mcg/[place] 16 gm] 2 spray NASL Q12 spray.pump 10/30/18 Heparin Sodium,Porcine [Heparin Inj 5,000 Units/ml 1 ml Syringe] 5,000 unit SUBCUT Q8 syringe 10/30/18 Ibuprofen [Motrin 400 mg Tablet] 400 mg PO Q8HP PRN tablet 10/30/18 Linaclotide 145 mcg PO .ACBRKFST 10/30/18 Mag Hydrox/Al Hydrox/Simeth [Maalox Plus Susp 30 Udcup] 15 ml PO Q6HP PRN udc 10/30/18 Metoclopramide HCl [Reglan 10 mg Tablet] 10 mg PO Q6A tablet 10/30/18 Ondansetron HCl/Pf [Zofran Inj/Pf 4 mg/2 ml Sdv] 4 mg IV Q6HP PRN vial 10/30/18 Pantoprazole Sodium [Protonix IV Inj 40 mg Vial] 40 mg IV Q12A vial 10/30/18 Zolpidem Tartrate [Ambien 5 mg Tablet] 5 mg PO HSP PRN tablet 10/30/18 History of Present Illness History of Present Illness: CARMEN HORTON is a 63 year old female e that presents to the emergency department for chief complaint of abdominal pain. Patient reports yesterday morning she had sudden onset of sharp abdominal pain. She states it is mostly in her epigastrium and radiates across her abdomen on both sides. She states the pain has been constant since onset. She reports multiple episodes of emesis since onset. Patient states the last time she had a bowel movement or passed any gas was prior to the onset of pain yesterday morning. She does report a history of bowel obstructions in the past. Patient has had multiple abdominal surgeries for hernia repair as well as cholecystectomy. She denies associated fevers or chills. She denies any chest pain or shortness of breath. Hospital Course Hospital Course: Is a 63-year-old female who is admitted on October 17, 2018 for complaints of increasing abdominal distention abdominal pain with inability to pass bowel mo vement for a number of days NG tube was initially placed she remained on wall suction with slow improvement of her abdominal distention and abdominal pain mostly ranging eventually she underwent a small bowel series which showed no evidence of continued obstruction good transit into the colon. NG tube was subsequently removed and she was begun on a clear liquid diet which was slowly advanced to a soft diet The time of discharge she is tolerating a soft diet she is having loose stools most likely secondary to the small bowel series she still has has intermittent nausea but she has home medications for this Referral will be made for her to follow-up with her primary doctor within a week after discharge She is ready for discharge home today New prescriptions will be given she will resume her own home meds Physical Exam Vital Signs: Temp Pulse Resp BP Pulse Ox 98.0 F 69 16 122/72 97 10/30/18 07:59 10/30/18 07:59 10/30/18 07:59 10/30/18 07:59 10/30/18 07:59 Intake & Output 10/29/18 10/30/18 10/31/18 06:59 06:59 06:59 Weight 67.9 kg 67.9 kg General appearance: PRESENT: no acute distress Head exam: PRESENT: normocephalic Eye exam: PRESENT: EOMI Ear exam: PRESENT: normal external ear exam Mouth exam: PRESENT: moist Neck exam: PRESENT: full ROM Respiratory exam: PRESENT: clear to auscultation alice Cardiovascular exam: PRESENT: RRR Pulses: PRESENT: normal radial pulses, normal femoral pulses Vascular exam: PRESENT: normal capillary refill GI/Abdominal exam: PRESENT: soft Rectal exam: PRESENT: deferred Extremities exam: PRESENT: full ROM Musculoskeletal exam: PRESENT: full ROM Neurological exam: PRESENT: alert, awake, oriented to person, oriented to place Psychiatric exam: PRESENT: appropriate affect Skin exam: PRESENT: dry Results Laboratory Results: 10/27/18 06:10 10/27/18 06:10 10/26/18 16:56 Troponin I < 0.012 Impressions: Abdomen/Pelvis CT 10/26/18 00:00 IMPRESSION: Mildly dilated fluid-filled loops of small bowel in the right upper quadrant, suspicious for small bowel obstruction with suspected transition point in the mid to lower abdomen as above. TECHNICAL DOCUMENTATION: Quality ID # [id number]: Final reports with documentation of one or more dose reduction techniques (e.g., Automated exposure control, adjustment of the mA and/or kV according to patient size, use of iterative reconstruction technique) copyright 2011 [employer]- All Rights Reserved Chest X-Ray 10/26/18 18:11 IMPRESSION: NO ACUTE FINDINGS. KUB X-Ray 10/26/18 22:21 IMPRESSION: 1. NG tube curled in the stomach in appropriate position. 2. Dilated loops of small bowel with air identified in the colon. These findings could be seen with partial small bowel obstruction. Small Bowel X-Ray 10/27/18 00:00 IMPRESSION: NORMAL SMALL BOWEL EXAM. NO EVIDENCE OF SMALL-BOWEL OBSTRUCTION. Abdomen X-Ray 07/11/19 09:00 IMPRESSION: Gas pattern is nonspecific. NG tube remains in place. Small-bowel distention previously described has largely resolved. Qualifiers - * PATIENT BEING DISCHARGED WITH ANY OF THE FOLLOWING DIAGNOSIS: No VTE patient discharged on overlapping Therapy?: Yes Acute Heart Failure - Is this a Heart Failure Patient?: No
[2018-10-30] MEDS: ONDANSETRON HCL INJ/PF 4 MG/2 ML SDV IV PRN (10:53)
[2018-10-30 11:07] VITALS: BP 144/61
--- NOTE | 2018-11-03 12:40 | DISCHARGE SUMMARY E ---
Discharge Summary NAME: CARMEN HORTON : 1955 AGE: 63Y ADMITTED: 10/26/2018 DISCHARGED: 10/30/2018 ADDENDUM I am dictating an addendum to the job ID# [id number], dictated on 10/30/2018. FINAL DIAGNOSIS: Incomplete small bowel obstruction, resolved. DICTATING PHYSICIAN: MICHELE SOTOMAYOR M.D. [id number] PHY#: [id number] ID: [id number] JOB#: [id number] ACCT: [id number] cc:MICHELE SOTOMAYOR M.D. >
== END 2018-10-30 11:39 | disposition home or self-care (01) | DRG 390 ==
LOC: ER 16:28 → EH 22:31 → 2N 10-27 00:08
PROVIDERS: ADMIT Surgery; ATTEND Surgery
PROC: 0D9670Z Drainage of Stomach with Drainage Device, Via Natural or Artificial Opening (ICD-10-PCS; principal; 2018-10-26)
DX: K56.601 Complete intestinal obstruction, unspecified as to cause (principal); E78.5 Hyperlipidemia, unspecified; I10 Essential (primary) hypertension; K21.9 Gastro-esophageal reflux disease without esophagitis; M19.90 Unspecified osteoarthritis, unspecified site; K44.9 Diaphragmatic hernia without obstruction or gangrene; G89.29 Other chronic pain; F32.9 Major depressive disorder, single episode, unspecified; F43.10 Post-traumatic stress disorder, unspecified; Z90.49 Acquired absence of other specified parts of digestive tract; Z90.710 Acquired absence of both cervix and uterus; Z79.82 Long term (current) use of aspirin; Z91.041 Radiographic dye allergy status; Z86.73 Personal history of transient ischemic attack (TIA), and cerebral infarction without residual deficits
CPT/HCPCS: 36415; 71045; 74018; 74019; 74177; 74250; 80053; 81001; 83690; 83735; 84100; 84484; 85025; 93005; 93010; 96361; 96374; 96375; 96376; 99285; J1170; J1200; J1644; J2250; J2270; J2405; J2704; J2765; J2930; J3010; J3490; J7030; J7121; S0028; S0164

== ENCOUNTER 2019-03-30 14:27 | Emergency (ER) | payer MEDICARE, MEDICAID ==
[2019-03-30] MEDS ORDERED: METOCLOPRAMIDE HCL ORAL SOLN 10 MG/10 ML UDCUP PO ONE (14:52)
[2019-03-30] MEDS ORDERED: ONDANSETRON HCL INJ/PF 4 MG/2 ML SDV IV ONE (14:52)
[2019-03-30] MEDS ORDERED: MAG HYDROX/AL HYDROX/SIMETH SUSP 30 ML UDCUP PO ONE (14:52)
[2019-03-30] MEDS ORDERED: LIDOCAINE 2% VISCOUS SOLN 20 ML UDCUP PO ONE (14:52)
[2019-03-30] MEDS ORDERED: ASPIRIN 81 MG TABLET, CHEWABLE PO ONE (15:00)
--- NOTE | 2019-03-30 15:12 | ER Document Report ---
ED Cardiac - General Chief Complaint: Epigastric Pain Stated Complaint: CHEST PAIN Time Seen by Provider: 03/30/19 14:47 Primary Care Provider: MAGDALENA SHAH PA-C [Primary Care Provider] - Follow up tomorrow Mode of Arrival: Medic Information source: Patient Notes: 64-year-old female presented to ED for complaint of chest pain x2 to 3 hours. She states it is a burning and sharp epigastric to the chest pain. She states she has had one mild heart attack about 10 years ago she does have GERD and hernias. She does have history of having her gallbladder removed in the past. She is tearful at this time. I have ordered a cardiac work-up aspirin as well as a GI cocktail. Patient is alert oriented respirations regular nonlabored. TRAVEL OUTSIDE OF THE [place] IN LAST 30 DAYS: No - HPI Patient complains to provider of: Chest pain - Sharp burning Was the onset of pain: Gradual Is the pain a: Chronic problem Chest pain location: Other - Gastric Quality of pain: Burning, Sharp Severity now: Severe Pain level currently: 5 Cardiac risk factors: Hypertension, + Family history, Dyslipidemia, Hx GA. denies: Smoker Positive cardiac history: Yes Associated symptoms: Heartburn, Nausea/vomiting Exacerbated by: Denies Relieved by: Nothing Similar symptoms previously: Yes Recently seen / treated by doctor: Yes - Related Data Allergies/Adverse Reactions: Iodinated Contrast Media [Iodinated Contrast- Oral and IV Dye] Allergy (Interme diate, Verified 10/26/18 23:56) IVP dye Allergy (Intermediate, Uncoded 08/26/18 08:55) rash Home Medications: Pt unable to remember at this time Past Medical History - General Information source: Patient - Social History Smoking Status: Never Smoker Chew tobacco use (# tins/day): No Frequency of alcohol use: None Drug Abuse: None Lives with: Family Family History: CAD, CVA, Malignancy Patient has suicidal ideation: No Patient has homicidal ideation: No - Past Medical History Cardiac Medical History: Reports: Hx Hypercholesterolemia, Hx Hypertension Pulmonary Medical History: Reports: Hx Pneumonia EENT Medical History: Reports: None Neurological Medical History: Reports: Hx Cerebrovascular Accident - Patient reports "mini stroke". Denies: Hx Parkinson's Disease Endocrine Medical History: Reports: None Renal/ Medical History: Reports: Hx Kidney Stones Malignancy Medical History: Reports: None GI Medical History: Reports: Hx Gastroesophageal Reflux Disease, Hx Hiatal Hernia, Hx Ulcer Musculoskeletal Medical History: Reports Hx Arthritis Skin Medical History: Reports None Psychiatric Medical History: Reports: Hx Depression, Hx Post Traumatic Stress Disorder Traumatic Medical History: Reports: Hx Fractures - left wrist Infectious Medical History: Reports: None. Denies: Hx HIV Past Surgical History: Reports: Hx Abdominal Surgery - Hernia mesh placed, Hx Adenoidectomy, Hx Appendectomy, Hx Cholecystectomy, Hx Hysterectomy, Hx Orthopedic Surgery - carpal tunnel, Other - Sigmoid colectomy, rectopexy Dr. Davi tello 2013; abdominal wall hernia surg - Immunizations Hx Diphtheria, Pertussis, Tetanus Vaccination: Yes Hx Pneumococcal Vaccination: 01/17/18 Review of Systems - Review of Systems Constitutional: No symptoms reported EENT: No symptoms reported Cardiovascular: No symptoms reported, Chest pain Respiratory: No symptoms reported Gastrointestinal: Abdominal pain - epigastric, Nausea Genitourinary: No symptoms reported Female Genitourinary: No symptoms reported Musculoskeletal: No symptoms reported Skin: No symptoms reported Hematologic/Lymphatic: No symptoms reported Neurological/Psychological: No symptoms reported -: Yes All other systems reviewed and negative Physical Exam - Vital signs Vitals: Temp Pulse Resp BP 98.6 F 83 20 156/89 H 03/30/19 14:28 03/30/19 14:28 03/30/19 14:28 03/30/19 14:28 Interpretation: Normal - General General appearance: Appears well, Alert - HEENT Head: Normocephalic, Atraumatic Eyes: Normal Pupils: PERRL - Respiratory Respiratory status: No respiratory distress Chest status: Nontender Breath sounds: Normal Chest palpation: Normal - Cardiovascular Rhythm: Regular Heart sounds: Normal auscultation Murmur: No - Abdominal Inspection: Normal Distension: No distension Bowel sounds: Hyperactive - Epigastric Tenderness: Tender Organomegaly: No organomegaly - Back Back: Normal, Nontender - Extremities General upper extremity: Normal inspection, Nontender, Normal color, Normal ROM, Normal temperature General lower extremity: Normal inspection, Nontender, Normal color, Normal ROM, Normal temperature, Normal weight bearing. No: Sam's sign - Neurological Neuro grossly intact: Yes Cognition: Normal Orientation: AAOx4 [place]am[place] Coma Scale Eye Opening: Spontaneous [place] Coma Scale Verbal: Oriented [place] Coma Scale Motor: Obeys Commands [place]am[place] Coma Scale Total: 15 Speech: Normal Motor strength normal: LUE, RUE, LLE, RLE Sensory: Normal - Psychological Associated symptoms: Normal affect, Normal mood - Skin Skin Temperature: Warm Skin Moisture: Dry Skin Color: Normal Course - Re-evaluation Re-evalutation: 03/30/19 21:17 Discussed exam and findings with Dr. albarran. Her exam is consistent with epig astric pain. Her cardiac work-up was completely negative. Patient does have very hyperactive bowel sounds. Patient was given IV injections of morphine with no relief. She was given IV Pepcid before discharge and discharged home with a prescription for Pepcid and instructions to follow-up with her primary care and gastroenterology. Patient did verbalize understanding and agreement with treatment plan for discharge. - Vital Signs Vital signs: Temp Pulse Resp BP Pulse Ox 98.0 F 80 15 134/74 H 97 03/30/19 14:40 03/30/19 14:40 03/30/19 20:01 03/30/19 20:00 03/30/19 20:01 - Laboratory Result Diagrams: 03/30/19 15:05 03/30/19 15:05 - Diagnostic Test Radiology reviewed: Image reviewed, Reports reviewed Discharge - Discharge Clinical Impression: Epigastric abdominal pain Condition: Stable Disposition: HOME, SELF-CARE Instructions: Evaluation of Upper Abdominal Pain ([facility]) Additional Instructions: ABDOMINAL PAIN: There are many causes of abdominal pain. Pain can mean a serious problem requiring surgery (such as appendicitis). It can also be an innocent problem that goes away on its own (such as a viral infection). Often, time must pass to determine the cause of pain. The physician does not feel that hospitalization is necessary, at present. Things may change within the next 24 hours. Call the doctor or come back for re- examination if any problems occur, such as: (1) Pain that becomes more severe, steady, or becomes concentrated in one specific area. Also, pain that is more severe with movement or coughing. (2) Vomiting that persists or becomes more frequent. (3) Blood in the vomitus, urine, or bowel movements. Blood in the stool may have a tarry or black appearance. (4) Shaking chills or fever greater than 100 degrees F. (5) The abdomen becomes more distended or swollen. (6) Bowel movements cease. (7) Failure to improve as expected. NORMAL EXAM AND WORKUP: At this time, your examination and workup show no significant abnormality. No significant abnormal physical findings are noted. All laboratory, EKG, and imaging (x-ray, CT scans, ultrasound) studies that were ordered show no signific ant abnormality. Although your examination and all studies that were ordered showed no significant abnormal finding, there are no examinations and no studies that are 100% accurate. There is always the possibility that some abnormality could exist and not be detected with physical examination or within the limits and capabilities of laboratory and other studies. You should return or follow up as you were instructed on your visit today for further evaluation if your symptoms do not resolve. ANTINAUSEA MEDICATION: You have been given a medication to suppress nausea and vomiting. This type of medication can be given as a shot, pill, or suppository. It will usually last for many hours. Pills and shots usually last six to eight hours, suppositories last about 12 hours. For the typical illness, only one or two doses of the medication may be necessary. Mild lightheadedness may occur. This type of medicine can cause drowsiness. Do not drive or operate dangerous machinery while under its influence. Do not mix with alcohol. See your doctor at once if you have muscle spasms or tightness, or uncontrollable motions (particularly of the neck, mouth, or jaw). Persistent vomiting or severe lightheadedness should also be evaluated by the physician. Pain Medication Injection You have received an injection of a pain medication. You should experience significant pain relief within 45 minutes. This drug is a narcotic -- it will impair your judgement, slow your reaction time and make you sleepy (as well as relieve your pain). Narcotics also can cause nausea. You should not drive, work with machinery, or perform any task requiring mental alertness until all effects of the medication are gone -- six to eight hours. Do not take any alcohol, or sedatives, and do not take any other medication without checking with your physician. Antinausea Medication You have been given a medication to suppress nausea and vomiting. This type of medication can be given as a shot, pill, or suppository. It will usually last for many hours. Pills and shots usually last six to eight hours, suppositories last about 12 hours. For the typical illness, only one or two doses of the medication may be necessary. Mild lightheadedness may occur. This type of medicine can cause drowsiness. Do not drive or operate dangerous machinery while under its influence. Do not mix with alcohol. See your doctor at once if you have muscle spasms or tightness, or uncontrollable motions (particularly of the neck, mouth, or jaw). Persistent vomiting or severe lightheadedness should also be evaluated by the physician. Acid-Suppressing Medication You have a prescription for medicine which reduces the stomach's secretion of acid. Examples include Zantac, Tagament, and Pepcid. These drugs are often used to allow healing of ulcers or esophagitis. They may be needed to prevent recurrence of ulcers in some patients, or to prevent damage from acid reflux in the esophagus. Take all medication as prescribed, even after the pain is gone. Regular antacids may be added as needed if you have symptoms while taking this medicine. These medications sometimes are prescribed for allergic reactions because they have anti-histaminic effects and relieve the rash and itching of the reaction. There are usually no side effects from this medication. But, in rare cases and particularly in the elderly, serious problems can occur. Contact your doctor if there is fever, rash, hallucinations, confusion, or unusual bruising. Contact your doctor at once if you develop lightheadedness, black or bloody stool, or bloody vomitus. Antacid Therapy You have been instructed to start antacid therapy. Antacids directly neutralize stomach acid. This is useful for acid irritation of the esophagus, gastritis, and ulcers. You should take two tablespoons of antacid one hour after each meal and three hours after each meal. If you are not eating, take the antacid every two hours. If you are using a concentrate (such as Maalox TC), use only one tablespoon. Many antacids affect the bowels. The most common problem is diarrhea. In this case, a pure aluminum hydroxide antacid (such as AlternaGel) can be substituted for some or all doses. If the problem is constipation, add a teaspoon of Milk of Magnesia to each dose. Call the doctor if you experience continued diarrhea or constipation, or if you develop lightheadedness, bloody stool or vomitus, severe abdominal pain, or black stool. FOLLOW-UP CARE: If you have been referred to a physician for follow-up care, call the physicians office for an appointment as you were instructed or within the next two days. If you experience worsening or a significant change in your symptoms, notify the physician immediately or return to the Emergency Department at any time for re-evaluation. Prescriptions: Famotidine [Pepcid 20 mg Tablet] 20 mg PO BID #12 tablet Forms: Elevated Blood Pressure Referrals: MAGDALENA SHAH PA-C [Primary Care Provider] - Follow up tomorrow
[2019-03-30] MEDS ORDERED: MORPHINE SULFATE 10 MG/ML INJ IV ONE ×2 (15:15→16:43)
[2019-03-30 15:23] LABS: ABSOLUTE EOSINOPHILS # (AUTO) 0.1 10^3/uL (0.0-0.6); ABSOLUTE LYMPHOCYTES (AUTO) 1.1 10^3/uL (0.5-4.7); ABSOLUTE MONOCYTES (AUTO) 0.3 10^3/uL (0.1-1.4); ABSOLUTE NEUT (AUTO) 4.4 10^3/uL (1.7-8.2); BASOPHILS % (AUTO) 0.3 % (0-2); EOSINOPHILS % (AUTO) 1.3 % (0-6); HEMATOCRIT 40.1 % (36.0-47.0); HEMOGLOBIN 13.6 g/dL (12.0-15.5); LYMPHOCYTES % (AUTO) 18.2 % (13-45); MEAN CORPUSCULAR HEMOGLOBIN 30.3 pg (27.0-33.4); MEAN CORPUSCULAR HGB CONC 33.9 g/dL (32.0-36.0); MEAN CORPUSCULAR VOLUME 89 fl (80-97); MONOCYTES % (AUTO) 5.8 % (3-13); PLATELET COUNT 201 10^3/uL (150-450); RED BLOOD COUNT 4.48 10^6/uL (3.72-5.28); RED CELL DISTRIBUTION WIDTH 13.3 % (11.5-14.0); SEGMENTED NEUTROPHILS % (AUTO) 74.4 % (42-78); TOTAL CELLS COUNTED % (AUTO) 100 %
[2019-03-30 15:41] LABS: ALBUMIN 4.4 g/dL (3.5-5.0); ALKALINE PHOSPHATASE 65 U/L (38-126); ANION GAP 11 (5-19); ASPARTATE AMINO TRANSFERASE 25 U/L (14-36); BILIRUBIN,DIRECT 0.2 mg/dL (0.0-0.4); BILIRUBIN,TOTAL 0.4 mg/dL (0.2-1.3); BLOOD UREA NITROGEN 8 mg/dL (7-20); CALCIUM 9.4 mg/dL (8.4-10.2); CARBON DIOXIDE 28 mmol/L (22-30); CHLORIDE 101 mmol/L (98-107); GLUCOSE 97 mg/dL (75-110); POTASSIUM 3.9 mmol/L (3.6-5.0); TOTAL PROTEIN 7.6 g/dL (6.3-8.2)
--- NOTE | 2019-03-30 15:49 | RADIOLOGY REPORT (SQ) ---
EXAM DESCRIPTION: CHEST 2 VIEWS COMPLETED DATE/TIME: 03/30/2019 3:38 pm REASON FOR STUDY: cp COMPARISON: Chest x-ray dated 10/26/2018 and 05/07/2018. CT dated 10/26/2018. EXAM PARAMETERS: NUMBER OF VIEWS: two views TECHNIQUE: Digital Frontal and Lateral radiographic views of the chest acquired. RADIATION DOSE: NA LIMITATIONS: none FINDINGS: LUNGS AND PLEURA: Density in the medial right lung base. Otherwise clear. No pleural eff usion. No pneumothorax. MEDIASTINUM AND HILAR STRUCTURES: No masses or contour abnormalities. HEART AND VASCULAR STRUCTURES: Heart normal size. No evidence for failure. BONES: No acute findings. HARDWARE: None in the chest. OTHER: No other significant finding. IMPRESSION: DENSITY IN THE MEDIAL RIGHT LUNG BASE APPEARS TO BE DUE TO A PROMINENT EPICARDIAL FAT PA D BASED ON PREVIOUS CT SCAN. CANNOT ENTIRELY EXCLUDE INFILTRATE DUE TO PNEUMONIA. TECHNICAL DOCUMENTATION: JOB ID: [id number] [employer]- All Rights Reserved Reading location - IP/workstation name: [email or web address]
--- NOTE | 2019-03-30 17:00 | EKG REPORT ---
SEVERITY:- ABNORMAL ECG - SINUS RHYTHM RIGHT ATRIAL ABNORMALITY ABNORMAL T, CONSIDER ISCHEMIA, INFERIOR LEADS : Confirmed by: Martir Molina MD 30-Mar-2019 16:59:50
[2019-03-30 17:51] LABS: APPEARANCE,URINE CLEAR; BILIRUBIN,URINE NEGATIVE (NEGATIVE); COLOR,URINE STRAW; GLUCOSE, URINE NEGATIVE (NEGATIVE); KETONES,URINE NEGATIVE (NEGATIVE); PROTEIN,URINE NEGATIVE (NEGATIVE); URINE SPECIFIC GRAVITY 1.004; UROBILINOGEN,URINE NEGATIVE mg/dL (<2.0)
[2019-03-30] MEDS ORDERED: CALCIUM CARBONATE 500 MG TAB.CHEW PO ONE (18:24)
[2019-03-30] MEDS ORDERED: FAMOTIDINE INJ/PF 20 MG/2 ML SDV IV ONE (19:45)
[2019-03-30 20:10] VITALS: BP 134/74
== END 2019-03-30 20:11 | disposition home or self-care (01) ==
LOC: ER 14:27
DX: R10.13 Epigastric pain (principal); R07.9 Chest pain, unspecified; R11.2 Nausea with vomiting, unspecified; I10 Essential (primary) hypertension; I25.2 Old myocardial infarction; Z90.49 Acquired absence of other specified parts of digestive tract; Z91.041 Radiographic dye allergy status
CPT/HCPCS: 93005; 36415; 83690; 85025; 80053; 81001; 84484; 71046; 93010; J3490; A9270 ×3; J2270; J2405; S0028; 96374; 96375; 96376; 99285

== ENCOUNTER 2019-06-23 16:15 | Emergency (ER) | payer MEDICARE, MEDICAID ==
[2019-06-23 17:13] LABS: ABSOLUTE EOSINOPHILS # (AUTO) 0.1 10^3/uL (0.0-0.6); ABSOLUTE LYMPHOCYTES (AUTO) 1.3 10^3/uL (0.5-4.7); ABSOLUTE MONOCYTES (AUTO) 0.4 10^3/uL (0.1-1.4); ABSOLUTE NEUT (AUTO) 3.1 10^3/uL (1.7-8.2); BASOPHILS % (AUTO) 0.7 % (0-2); EOSINOPHILS % (AUTO) 2.9 % (0-6); HEMATOCRIT 36.3 % (36.0-47.0); HEMOGLOBIN 12.7 g/dL (12.0-15.5); LYMPHOCYTES % (AUTO) 26.6 % (13-45); MEAN CORPUSCULAR HGB CONC 35.1 g/dL (32.0-36.0); MEAN CORPUSCULAR VOLUME 89 fl (80-97); MONOCYTES % (AUTO) 7.9 % (3-13); PLATELET COUNT 257 10^3/uL (150-450); RED CELL DISTRIBUTION WIDTH 12.7 % (11.5-14.0); SEGMENTED NEUTROPHILS % (AUTO) 61.9 % (42-78); TOTAL CELLS COUNTED % (AUTO) 100 %; WHITE BLOOD COUNT 4.9 10^3/uL (4.0-10.5)
[2019-06-23 17:30] LABS: ALBUMIN 4.2 g/dL (3.5-5.0); ALKALINE PHOSPHATASE 57 U/L (38-126); ANION GAP 9 (5-19); ASPARTATE AMINO TRANSFERASE 35 U/L (14-36); BILIRUBIN,TOTAL 0.3 mg/dL (0.2-1.3); BLOOD UREA NITROGEN 11 mg/dL (7-20); CALCIUM 8.9 mg/dL (8.4-10.2); CARBON DIOXIDE 26 mmol/L (22-30); CHLORIDE 101 mmol/L (98-107); CREATINE KINASE 49 U/L (30-135); GLUCOSE 147 mg/dL (75-110); POTASSIUM 4.3 mmol/L (3.6-5.0); TOTAL PROTEIN 7.3 g/dL (6.3-8.2)
[2019-06-23 17:48] LABS: CREATINE KINASE MB 0.64 ng/mL (<4.55)
[2019-06-23 17:50] LABS: TROPONIN I < 0.012 ng/mL
[2019-06-23] MEDS ORDERED: IBUPROFEN 800 MG TABLET PO ONE (18:03)
[2019-06-23] MEDS ORDERED: ONDANSETRON HCL INJ/PF 4 MG/2 ML SDV IV ONE (18:03)
--- NOTE | 2019-06-23 18:08 | EKG REPORT ---
SEVERITY:- ABNORMAL ECG - SINUS RHYTHM NONSPECIFIC ANTERIOR ST-T CHANGES : Confirmed by: Martir Molina MD 23-Jun-2019 18:07:47
[2019-06-23] MEDS ORDERED: TRAMADOL HCL 50 MG TABLET PO ONE (20:29)
--- NOTE | 2019-06-23 20:37 | ER Document Report ---
ED General - General Chief Complaint: Chest Pain Stated Complaint: CHEST PAIN Time Seen by Provider: 06/23/19 20:00 Primary Care Provider: MAGDALENA SHAH PA-C [Primary Care Provider] - Follow up as needed TRAVEL OUTSIDE OF THE [place] IN LAST 30 DAYS: No - HPI Notes: 64-year-old female presenting for evaluation of chest pain. Patient says she was sitting in her recliner at home yesterday when she noted onset of sharp right-sided chest pain which was worse with movement particularly turning to her right side. She denies any fall or injury. She denies cough, fever or sputum production. She denies dyspnea. She denies nausea vomiting. She denies radiation of pain into the arm or jaw. Patient has been seen multiple times in the emergency department here and also an inpatient service for chest pain with consistently negative work-ups despite multiple risk factors. She reports a severe allergy to contrast dye and has not been willing to undergo cardiac catheterization in the past. She says she has had negative exercise test several times in the past but is not had one in several years. Patient is a non-smoker. She is not diabetic. She does have a history of h ypertension. Hx. of hyperlipidemia. Family history is positive for CAD. She denies any known personal or family history of thromboembolic disease. HEART Score: HISTORY 0 ECG 0 AGE 1 RISK FACTORS 1 TROPONIN 0 TOTAL: 3 If HEART score is = 3 AND both tronponin measurments are normal, the 30 day risk of a major adverse cardiac event (all-cause mortality, myocardia infarction or need for coronary revscularization) is < 1% (Sensitivity 100%, NPV 100%). - Related Data Allergies/Adverse Reactions: Iodinated Contrast Media [Iodinated Contrast- Oral and IV Dye] Allergy (Intermediate, Verified 10/26/18 23:56) IVP dye Allergy (Intermediate, Uncoded 08/26/18 08:55) rash Past Medical History - General Information source: Patient, Emergency Med Personnel, [facility] Records - Social History Smoking Status: Unknown if Ever Smoked Family History: CAD, CVA, Malignancy Patient has suicidal ideation: No Patient has homicidal ideation: No - Past Medical History Cardiac Medical History: Reports: Hx Hypercholesterolemia, Hx Hypertension Pulmonary Medical History: Reports: Hx Pneumonia Denies: Hx Asthma, Hx Bronchitis, Hx COPD, Hx Respiratory Failure, Hx Sleep Apnea, Hx Tuberculosis Neurological Medical History: Reports: Hx Cerebrovascular Accident - Patient reports "mini stroke". Denies: Hx Parkinson's Disease Endocrine Medical History: Denies: Hx Diabetes Mellitus Type 1, Hx Diabetes Mellitus Type 2 Renal/ Medical History: Reports: Hx Kidney Stones. Denies: Hx End Stage Renal Disease, Hx Ovarian Cysts, Hx Peritoneal Dialysis Malignancy Medical History: Denies: Hx Breast Cancer, Hx Cervical Cancer, Hx Leukemia, Hx Lung Cancer, Hx Ovarian Cancer GI Medical History: Reports: Hx Gastroesophageal Reflux Disease, Hx Hiatal Hernia, Hx Ulcer. Denies: Hx Crohn's Disease, Hx Irritable Bowel, Hx Liver Failure, Hx Pancreatitis Musculoskeletal Medical History: Reports Hx Arthritis, Denies Hx Fibromyalgia, Denies Hx Multiple Sclerosis, Denies Hx Muscular Dystrophy Psychiatric Medical History: Reports: Hx Depression, Hx Post Traumatic Stress Disorder Denies: Hx Bipolar Disorder, Hx Dementia, Hx Schizophrenia Traumatic Medical History: Reports: Hx Fractures - left wrist Infectious Medical History: Denies: Hx HIV Past Surgical History: Reports: Hx Abdominal Surgery - Hernia mesh placed, Hx Adenoidectomy, Hx Appendectomy, Hx Cholecystectomy, Hx Hysterectomy, Hx Orthopedic Surgery - carpal tunnel, Other - Sigmoid colectomy, rectopexy Dr. Fowler 2013; abdominal wall hernia surg. Denies: Hx Bowel Surgery, Hx Section, Hx Colostomy, Hx Coronary Artery Bypass Graft, Hx Gastric Bypass Surgery, Hx Herniorrhaphy, Hx Mastectomy, Hx Pacemaker, Hx Tonsillectomy, Hx Tubal Ligation - Immunizations Hx Diphtheria, Pertussis, Tetanus Vaccination: Yes Hx Pneumococcal Vaccination: 01/17/18 Review of Systems - Review of Systems Notes: Constitutional: Negative for fever. HENT: Negative for sore throat. Eyes: Negative for visual changes. Cardiovascular: As per HPI. Respiratory: Negative for shortness of breath. Gastrointestinal: Negative for abdominal pain, vomiting or diarrhea. Genitourinary: Negative for dysuria. Musculoskeletal: Negative for back pain. Skin: Negative for rash. Neurological: Negative for headaches, weakness or numbness. 10 point ROS negative except as marked above and in HPI. Physical Exam - Vital signs Vitals: Pulse Ox 98 06/23/19 16:15 - Notes Notes: GENERAL: Elderly female appearing in no acute distress. SKIN: Good turgor no rashes. HEAD: Normocephalic atraumatic. EYES: PERRLA. EOMI. Conjunctivae and sclerae clear. EARS: CANALS AND TMS CLEAR. NOSE: CLEAR. MOUTH: Moist mucosa. Good dentition. No stridor or edema. No drooling. NECK: Supple. No masses or thyromegaly. No adenopathy. Carotids 2+ without bruits. No JVD. BACK: Symmetrical without tenderness. CHEST: Exquisite right sided anterior chest tenderness which exactly reproduces her symptoms. Respirations unlabored. Breath sounds clear and symmetrical. HEART: Regular rhythm. No murmur gallop or rub. ABDOMEN: Soft nontender without masses, organomegaly or rebound. Bowel sounds normally active. No bruits. GENITALIA: Deferred. EXTREMITIES: No edema. No calf tenderness. Cap refill less than 1.5 seconds. Dorsalis pedis and posterior tibial pulses 3+ and symmetrical. NEUROLOGICAL: GCS 15. Alert and oriented x3. Normal gait. Fluent speech. Inventory Worker nial nerves II through XII intact. Sensorimotor and cerebellar normal. Normal tone. PSYCHIATRIC: Very flat affect. Course - Re-evaluation Re-evalutation: 06/23/19 20:39 Serial troponins x2 normal here. Patient has been hemodynamically stable and normotensive during her observation in ED. Her EKG x2 showed no acute ST elevations and she is in a normal sinus rhythm. Chest x-ray has been requested. 06/23/19 21:27 Chest x-ray is normal. Second EKG is normal and unchanged from tracing #1. Patient appears stable for outpatient management of her chest wall discomfort. I do recommend follow-up with her primary care physician and referral to a forestry fire aide for a follow-up treadmill test because of her risk factor profile a nd her age. - Vital Signs Vital signs: Temp Pulse Resp BP Pulse Ox 98.1 F 15 127/75 H 97 06/23/19 16:31 06/23/19 17:01 06/23/19 17:00 06/23/19 17:01 - Laboratory Result Diagrams: 06/23/19 16:46 06/23/19 16:46 Laboratory results interpreted by me: 06/23/19 16:46 Sodium 136.0 L Glucose 147 H - Diagnostic Test Radiology reviewed: Reports reviewed - Chest x-ray shows no active disease per radiologist. - EKG Interpretation by Me Additional EKG results interpreted by me: 06/23/19 20:41 Twelve-lead EKG from 1658 hrs. is reviewed contemporaneously by me demonstrating a normal sinus rhythm with normal intervals and a QRS axis of 32 degrees. Heart rate is 76. No acute ST/T wave changes. Discharge - Discharge Clinical Impression: Chest wall pain Condition: Stable Disposition: HOME, SELF-CARE Instructions: Chest Wall Pain ([facility]) Additional Instructions: Your pain appears to be primarily related to musculoskeletal structures in your chest wall at this time. See your primary care doctor soon as possible to follow-up on this issue. Because of your age and cardiac risk factors we also recommend that you discuss getting your primary care doctor to refer you to a forestry fire aide and undergo further evaluation with a stress test. Return here as needed for new or worsening symptoms: Pain that is worsening or unimproved Uncontrolled vomiting High fever or shaking chills Overall worsening Prescriptions: Tramadol HCl [Ultram 50 mg Tablet] 50 mg PO Q4HP PRN 7 Days #12 tab PRN Reason: Pain Scale Of 4 Referrals: MAGDALENA SHAH PA-C [Primary Care Provider] - Follow up as needed
--- NOTE | 2019-06-23 21:23 | RADIOLOGY REPORT (SQ) ---
EXAM DESCRIPTION: [facility]: XR CHEST 1 VIEW CLINICAL HISTORY: 64 years Female; CP; COMPARISON: 10/26/2018, 03/30/2019 FINDINGS: Lungs are clear, with no focal infiltrate, pneumothorax, or pleural effusion. Mediastinum is within normal limits for this positioning. Bony structures are unremarkable. IMPRESSION: 1. No acute pulmonary findings.
[2019-06-23 22:15] VITALS: BP 132/74
--- NOTE | 2019-06-23 22:17 | EKG REPORT ---
SEVERITY:- BORDERLINE ECG - SINUS RHYTHM NONSPECIFIC ST-T CHANGES- INFERIOR LEADS : Confirmed by: Martir Molina MD 23-Jun-2019 22:17:10
== END 2019-06-23 22:15 | disposition home or self-care (01) ==
LOC: ER 16:15
DX: R07.89 Other chest pain (principal); I10 Essential (primary) hypertension
CPT/HCPCS: 93005; 99284; 96374; 36415; 82553; 82550; 85025; 80053; 84484; 71045; 93010; A9270 ×2; J2405

== ENCOUNTER 2019-07-08 14:11 | Inpatient (IN) | payer MEDICARE, MEDICAID ==
--- NOTE | 2019-07-08 14:37 | RADIOLOGY REPORT (SQ) ---
EXAM DESCRIPTION: CT HEAD WITHOUT COMPLETED DATE/TIME: 07/08/2019 2:24 pm REASON FOR STUDY: headache /left upper weakness COMPARISON: None. TECHNIQUE: Axial images acquired through the brain without intravenous contrast. Images reviewed wi th bone, brain and subdural windows. Additional sagittal and coronal reconstructions were generated. Images stored on PACS. All CT scanners at this facility use dose modulation, iterative reconstruction, and/or weight based d osing when appropriate to reduce radiation dose to as low as reasonably achievable (ALARA). [facility]: Dose Right [facility]: CareDose [facility]: Dose Right [facility]: Teradose 4D [facility]: [employer] RADIATION DOSE: CT Rad equipment meets quality standard of care and radiation dose reduction techniq ues were employed. CTDIvol: 53.2 mGy. DLP: 1044 mGy-cm. mGy. LIMITATIONS: None. FINDINGS: VENTRICLES: Normal size and contour. CEREBRUM: No masses. No hemorrhage. No midline shift. No evidence for acute infarction. Normal gra y/white matter differentiation. No areas of low density in the white matter. CEREBELLUM: No masses. No hemorrhage. No alteration of density. No evidence for acute infarction. EXTRAAXIAL SPACES: No fluid collections. No masses. ORBITS AND GLOBE: No intra- or extraconal masses. Normal contour of globe without masses. CALVARIUM: No fracture. PARANASAL SINUSES: No fluid or mucosal thickening. SOFT TISSUES: No mass or hematoma. OTHER: No other significant finding. IMPRESSION: NORMAL BRAIN CT WITHOUT CONTRAST. EVIDENCE OF ACUTE STROKE: NO. COMMENT: Pertinent positive or negative findings of the imaging study reported as a CRITICAL EXAM t regina FLORES MD at14:31 on 07/08/2019. Category of Critical Exam: Stroke alert Quality ID # [id number]: Final reports with documentation of one or more dose reduction techniques (e.g., Au tomated exposure control, adjustment of the mA and/or kV according to patient size, use of iterative reconstruction technique) TECHNICAL DOCUMENTATION: JOB ID: [id number] [employer]- All Rights Reserved Reading location - IP/workstation name: [email or web address]
[2019-07-08] MEDS ORDERED: NORMAL SALINE 1000 ML 1,000 ML IV ONE (14:46)
[2019-07-08] MEDS ORDERED: LORAZEPAM INJ 2 MG/1 ML VIAL IV ONE (14:47)
--- NOTE | 2019-07-08 14:55 | RADIOLOGY REPORT (SQ) ---
EXAM DESCRIPTION: CHEST SINGLE VIEW COMPLETED DATE/TIME: 07/08/2019 2:33 pm REASON FOR STUDY: stroke protocol COMPARISON: None. EXAM PARAMETERS: NUMBER OF VIEWS: One view. TECHNIQUE: Single frontal radiographic view of the chest acquired. RADIATION DOSE: NA LIMITATIONS: None. FINDINGS: LUNGS AND PLEURA: No opacities, masses or pneumothorax. No pleural effusion. MEDIASTINUM AND HILAR STRUCTURES: No masses. Contour normal. HEART AND VASCULAR STRUCTURES: Heart normal in size. Normal vasculature. BONES: No acute findings. HARDWARE: None in the chest. OTHER: No other significant finding. IMPRESSION: NO ACUTE RADIOGRAPHIC FINDING IN THE CHEST. TECHNICAL DOCUMENTATION: JOB ID: [id number] 2010 [employer]- All Rights Reserved Reading location - IP/workstation name: [email or web address]
[2019-07-08 14:58] LABS: ABSOLUTE EOSINOPHILS # (AUTO) 0.1 10^3/uL (0.0-0.6); ABSOLUTE LYMPHOCYTES (AUTO) 1.6 10^3/uL (0.5-4.7); ABSOLUTE MONOCYTES (AUTO) 0.5 10^3/uL (0.1-1.4); BASOPHILS % (AUTO) 0.7 % (0-2); EOSINOPHILS % (AUTO) 1.8 % (0-6); HEMATOCRIT 39.9 % (36.0-47.0); HEMOGLOBIN 14.1 g/dL (12.0-15.5); LYMPHOCYTES % (AUTO) 25.7 % (13-45); MEAN CORPUSCULAR HEMOGLOBIN 30.9 pg (27.0-33.4); MEAN CORPUSCULAR HGB CONC 35.3 g/dL (32.0-36.0); MEAN CORPUSCULAR VOLUME 88 fl (80-97); MONOCYTES % (AUTO) 7.9 % (3-13); PLATELET COUNT 250 10^3/uL (150-450); RED BLOOD COUNT 4.56 10^6/uL (3.72-5.28); RED CELL DISTRIBUTION WIDTH 12.8 % (11.5-14.0); SEGMENTED NEUTROPHILS % (AUTO) 63.9 % (42-78); TOTAL CELLS COUNTED % (AUTO) 100 %; WHITE BLOOD COUNT 6.3 10^3/uL (4.0-10.5)
[2019-07-08 15:08] LABS: INTERNATIONAL RATION (INR) 0.96; PROTHROMBIN TIME 12.8 SEC (11.4-15.4)
[2019-07-08 15:09] LABS: PARTIAL THROMBOPLASTIN TIME 26.3 SEC (23.5-35.8)
[2019-07-08 15:15] LABS: ALBUMIN 4.8 g/dL (3.5-5.0); ALKALINE PHOSPHATASE 83 U/L (38-126); ANION GAP 14 (5-19); ASPARTATE AMINO TRANSFERASE 28 U/L (14-36); BILIRUBIN,DIRECT 0.3 mg/dL (0.0-0.4); BILIRUBIN,TOTAL 0.5 mg/dL (0.2-1.3); BLOOD UREA NITROGEN 9 mg/dL (7-20); CALCIUM 9.6 mg/dL (8.4-10.2); CARBON DIOXIDE 23 mmol/L (22-30); CHLORIDE 102 mmol/L (98-107); CREATINE KINASE 45 U/L (30-135); GLUCOSE 105 mg/dL (75-110); POTASSIUM 4.4 mmol/L (3.6-5.0)
[2019-07-08 15:27] LABS: CREATINE KINASE MB 0.38 ng/mL (<4.55); NT PRO BNP 25 pg/mL (<125)
[2019-07-08 15:34] LABS: A TYPE INFLUENZA AG NEGATIVE (NEGATIVE); B INFLUENZA AG NEGATIVE (NEGATIVE)
[2019-07-08 15:41] LABS: TROPONIN I < 0.012 ng/mL
[2019-07-08] MEDS ORDERED: ACETAMINOPHEN 325 MG TABLET PO ONE (15:50)
[2019-07-08] MEDS ORDERED: IPRATROPIUM/ALBUTEROL 0.5-2.5 MG/3 ML AMPUL NEB PRN (18:23)
[2019-07-08] MEDS ORDERED: MAG HYDROX/AL HYDROX/SIMETH SUSP 30 ML UDCUP PO PRN (18:23)
[2019-07-08] MEDS ORDERED: ACETAMINOPHEN 325 MG TABLET PO PRN (18:23)
[2019-07-08] MEDS ORDERED: ONDANSETRON 4 MG TAB.RAPDIS PO PRN (18:23)
--- NOTE | 2019-07-08 18:53 | PDOC H&P ---
History of Present Illness Admission Date/PCP: MAGDALENA SHAH PA-C History of Present Illness: CARMEN HORTON is a 64 year old female who comes in for a multitude of complaints. Apparently she called EMS because she was having chest pain and numbness and tingling down her left arm. The patient states this started about noon today.. She still has slight numbness and tingling in the left arm. States whenever she moves her left arm she gets pain into her left shoulder. Patient has a history of chest pain and is been in the ER multiple times for that. Troponins have always been negative. She also says she has been coughing for the last 2 days and having fever and chills. States no one else in the house has the symptoms. Lives with her brother. Patient denies having traveled recently or been around anyone who is traveled recently. Patient has had a CT head scan in the ER that is negative for acute findings. She has had a flu swab and a rapid strep test that were reported negative however the nurse tells me that these were poor specimens, not of good quality swabs. Therefore I have repeated these studies and asked for Covid 19 testing as well. Patient was in the respiratory isolation rooms in the ER and all of the staff were wearing mask and gowns because of potential Covid at 19, when I went to see and examine the patient. I have continued most of patient's home medications and added Plavix as well. Chest x-ray is negative for acute cardiopulmonary disease. If patient's second flu swab is positive she would need to be treated with Tamiflu. Patient does not appear to be septic or toxic. Unfortunately our MRI machine is down and will not be up and running until Wednesday, there was I would have ordered a MRI of the head. I am going to hold on CTA scans of the head and neck at this time. Depending on patient's symptoms she may need CTA of the head and neck we are waiting on Jazzy 19 results. Past Medical History Cardiac Medical History: Reports: Hyperlipidema, Hypertension Pulmonary Medical History: Reports: Pneumonia Denies: Asthma, Bronchitis, Chronic Obstructive Pulmonary Disease (COPD), Respiratory Failure, Sleep Apnea, Tuberculosis Neurological Medical History: Endocrine Medical History: Denies: Diabetes Mellitus Type 1, Diabetes Mellitus Type 2 Renal/ Medical History: Denies: End Stage Renal Disease Malignancy Medical History: Denies: Breast Cancer, Cervical Cancer, Leukemia, Lung Cancer, Ovarian Cancer GI Medical History: Reports: Gastroesophageal Reflux Disease, Hiatal Hernia Denies: Crohn's Disease Musculoskeltal Medical History: Reports: Arthritis Denies: Fibromyalgia Psychiatric Medical History: Reports: Depression, Post Traumatic Stress Disorder Denies: Bipolar Disorder, Dementia Hematology: Denies: Anemia, Hemophilia, Sickle Cell Disease Infectious Medical History: Denies: HIV Past Surgical History Past Surgical History: Reports: Adenoidectomy, Appendectomy, Cholecystectomy, Hysterectomy, Orthopedic Surgery - carpal tunnel, Other - Sigmoid colectomy, rectopexy Dr. Fowler 2013; abdominal wall hernia surg Denies: Amputation, Section, Colostomy, Coronary Artery Bypass [place] t, Gastric Bypass Surgery, Herniorrhaphy, Mastectomy, Pacemaker, Tonsillectomy, Tubal Ligation Social History Smoking Status: Unknown if Ever Smoked Frequency of Alcohol Use: None Hx Recreational Drug Use: No Drugs: None Hx Prescription Drug Abuse: No - Advance Directive Resuscitation Status: Do Not Intubate Family History Family History: CAD, CVA, Malignancy Parental Family History Reviewed: No Children Family History Reviewed: No Sibling(s) Family History Reviewed.: No Medication/Allergy Home Medications: Amitriptyline HCl [Elavil 10 mg Tablet] 20 mg PO QHS 07/01/18 Aspirin [Ecotrin] 81 mg PO DAILY 07/01/18 Eszopiclone [Lunesta] 3 mg PO HSP PRN 07/01/18 Famotidine [Pepcid 20 mg Tablet] 20 mg PO BID 07/01/18 Hydrochlorothiazide [Hydrodiuril 12.5 mg Tablet] 12.5 mg PO DAILY 07/01/18 Meclizine HCl [Antivert 12.5 mg Tablet] 12.5 mg PO BIDP PRN 07/01/18 Nitroglycerin [Nitrostat 0.4 mg (1/150 Gr) Tabs 25/Bottle] 1 tab SL Q5MP PRN 07/01/18 Omeprazole 40 mg PO Q6AM 07/01/18 Raloxifene HCl [Evista 60 mg Tablet] 60 mg PO ACBRKFST 07/01/18 Simvastatin [Zocor 80 mg Tablet] 80 mg PO QHS 07/01/18 Fluticasone Propionate [Flonase Nasal Lincoln 50 Mcg/Lincoln 16 gm] 2 spray NASL DAILYP PRN 10/27/18 Linaclotide [Linzess 145 Mcg Capsule] 145 mcg PO ACBRKFST 10/27/18 Ondansetron HCl [Zofran 8 mg Tablet] 8 mg PO Q8HP PRN 10/27/18 Metoclopramide HCl [Reglan 10 mg Tablet] 10 mg PO .4 TIMES A DAY 10/29/18 Fluticasone Propionate [Flonase Nasal [place] 50 Mcg/Lincoln 16 gm] 2 spray NASL Q12 spray.pump 10/30/18 Heparin Sodium,Porcine [Heparin Inj 5,000 Units/ml 1 ml Vial] 5,000 unit SUBCUT Q8 syringe 10/30/18 Ibuprofen [Motrin 400 mg Tablet] 400 mg PO Q8HP PRN tablet 10/30/18 Linaclotide 145 mcg PO .ACBRKFST 10/30/18 Mag Hydrox/Al Hydrox/Simeth [Maalox Plus Susp 30 Udcup] 15 ml PO Q6HP PRN udc 10/30/18 Metoclopramide HCl [Reglan 10 mg Tablet] 10 mg PO Q6A tablet 10/30/18 Ondansetron HCl/Pf [Zofran Inj/Pf 4 mg/2 ml Sdv] 4 mg IV Q6HP PRN vial 10/30/18 Pantoprazole Sodium [Protonix IV Inj 40 mg Vial] 40 mg IV Q12A vial 10/30/18 Zolpidem Tartrate [Ambien 5 mg Tablet] 5 mg PO HSP PRN tablet 10/30/18 Famotidine [Pepcid 20 mg Tablet] 20 mg PO BID #12 tablet 03/30/19 Tramadol HCl [Ultram 50 mg Tablet] 50 mg PO Q4HP PRN 7 Days #12 tab 06/23/19 Allergies/Adverse Reactions: Iodinated Contrast Media [Iodinated Contrast- Oral and IV Dye] Allergy (Intermediate, Verified 10/26/18 23:56) IVP dye Allergy (Intermediate, Uncoded 08/26/18 08:55) rash Review of Systems Constitutional: PRESENT: as per HPI, chills, fever(s), weakness Cardiovascular: PRESENT: chest pain Respiratory: PRESENT: cough Musculoskeletal: PRESENT: other - Patient states she hurts all over. Neurological: PRESENT: numbness, paresthesias, weakness, other - Limited to the left upper extremity. ABSENT: abnormal gait, abnormal speech, confusion, dizziness, focal weakness, syncope Psychiatric: ABSENT: anxiety, depression, homidical ideation, suicidal ideation Physical Exam Vital Signs: Temp Pulse Resp BP Pulse Ox 99.5 F 79 14 150/91 H 96 07/08/19 15:20 07/08/19 15:00 07/08/19 15:00 07/08/19 15:00 07/08/19 15:00 Intake & Output 07/07/19 07/08/19 07/09/19 06:59 06:59 06:59 Weight 69.5 kg General appearance: PRESENT: mild distress, other - Patient states she hurts all over patient appears to be depressed Respiratory exam: PRESENT: decreased breath sounds Cardiovascular exam: PRESENT: RRR. ABSENT: diastolic murmur, rubs, systolic murmur Extremities exam: PRESENT: tenderness - Patient is tender to palpate over the left shoulder. 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 Psychiatric exam: PRESENT: depressed, flat affect Results Laboratory Results: 07/08/19 13:45 07/08/19 13:45 07/08/19 07/08/19 13:45 13:45 WBC 6.3 RBC 4.56 Hgb 14.1 Hct 39.9 MCV 88 MCH 30.9 MCHC 35.3 RDW 12.8 Plt Count 250 Seg Neutrophils % 63.9 Sodium 138.7 Potassium 4.4 Chloride 102 Carbon Dioxide 23 Anion Gap 14 BUN 9 Creatinine 0.70 Est GFR ( Amer) > 60 Glucose 105 Calcium 9.6 Total Bilirubin 0.5 AST 28 Alkaline Phosphatase 83 Total Protein 8.0 Albumin 4.8 07/08/19 07/08/19 13:45 13:45 Creatine Kinase 45 CK-MB (CK-2) 0.38 Troponin I < 0.012 NT-Pro-B Natriuret Pep 25 Impressions: Head CT 07/08/19 14:16 IMPRESSION: NORMAL BRAIN CT WITHOUT CONTRAST. EVIDENCE OF ACUTE STROKE: NO. Chest X-Ray 07/08/19 14:17 IMPRESSION: NO ACUTE RADIOGRAPHIC FINDING IN THE CHEST. Assessment and Plan - Diagnosis (1) Cough Is this a current diagnosis for this admission?: Yes (2) TIA (transient ischemic attack) Is this a current diagnosis for this admission?: Yes (3) Chest pain Qualifiers: Chest pain type: unspecified Qualified Code(s): R07.9 - Chest pain, unspecified Is this a current diagnosis for this admission?: Yes (4) Chronic pain Is this a current diagnosis for this admission?: Yes (5) Depression Is this a current diagnosis for this admission?: Yes (6) Hypertension Qualifiers: Hypertension type: essential hypertension Qualified Code(s): I10 - Essential (primary) hypertension Is this a current diagnosis for this admission?: Yes (7) Possible viral illness Is this a current diagnosis for this admission?: Yes - Plan Summary Summary: Patient has already started to have a work-up for respiratory and contact isola tion in the emergency room , therefore I have recommended they continue this, patient up on the fifth floor isolation purposes. Patient will need an MRI of the brain done as soon as our machine is up and running. Patient was placed on Plavix in the meantime. We will flu swab and rapid strep test was negative repeat studies are pending. She will have serial troponins for the sake of completeness even though she is been ruled out in the past. I do not strongly suspect TIA or CVA. This does appear to be some type of viral syndrome probably benign. No current indication clinically for antibiotics at this time. Supportive treatment, continue testing. - Time Time Spent with patient: 35 or more minutes
[2019-07-08] MEDS ORDERED: GUAIFENESIN SYRP 200 MG/10 ML UDC PO PRN (18:55)
[2019-07-08] MEDS ORDERED: KETOROLAC TROMETHAMINE INJ/PF 30 MG/1 ML SDV IV PRN (18:56)
[2019-07-08] MEDS ORDERED: ASPIRIN 81 MG TABLET, ENT COATED PO ONE (19:00)
[2019-07-08 19:51] LABS: CREATINE KINASE MB 0.48 ng/mL (<4.55); NT PRO BNP 30 pg/mL (<125)
--- NOTE | 2019-07-08 19:55 | EKG REPORT ---
SEVERITY:- NORMAL ECG - SINUS RHYTHM : Confirmed by: Yari Gamboa MD 08-Jul-2019 19:54:57
[2019-07-08 20:02] LABS: TROPONIN I < 0.012 ng/mL
[2019-07-08] MEDS: NORMAL SALINE 1000 ML 1,000 ML IV PRN ×2 (20:42→23:25)
[2019-07-08] MEDS: OXYCODONE-ACETAMINOPHEN 5-325 MG TABLET PO PRN (21:11)
[2019-07-08] MEDS: CLOPIDOGREL BISULFATE 75 MG TABLET PO SCH (21:11)
[2019-07-08] MEDS: METOCLOPRAMIDE HCL 10 MG TABLET PO SCH (21:11)
[2019-07-08 21:44] LABS: APPEARANCE,URINE CLEAR; BILIRUBIN,URINE NEGATIVE (NEGATIVE); COLOR,URINE COLORLESS; GLUCOSE, URINE NEGATIVE (NEGATIVE); KETONES,URINE NEGATIVE (NEGATIVE); PROTEIN,URINE NEGATIVE (NEGATIVE); URINE SPECIFIC GRAVITY 1.004; UROBILINOGEN,URINE NEGATIVE mg/dL (<2.0)
[2019-07-08] MEDS ORDERED: AMITRIPTYLINE HCL 25 MG TABLET PO SCH (22:00)
[2019-07-08] MEDS ORDERED: INFLUENZA QUAD (6MOS+) 2019-20 VAC 0.5 ML SYR IM ONE (22:13)
[2019-07-08] MEDS: ONDANSETRON HCL INJ/PF 4 MG/2 ML SDV IV PRN (23:25)
[2019-07-09 01:34] LABS: CREATINE KINASE MB 0.53 ng/mL (<4.55)
[2019-07-09 01:39] LABS: TROPONIN I < 0.012 ng/mL
[2019-07-09] MEDS ORDERED: PANTOPRAZOLE SODIUM 20 MG TABLET.DR PO SCH (06:00)
[2019-07-09] MEDS: OXYCODONE-ACETAMINOPHEN 5-325 MG TABLET PO PRN (06:22)
[2019-07-09] MEDS: NORMAL SALINE 1000 ML 1,000 ML IV PRN ×2 (06:23→17:02)
--- NOTE | 2019-07-09 06:45 | ER Document Report ---
Entered by NESTOR MEJIA SCRIBE 07/08/19 1447 Acting as scribe for:ADAMA FLORES MD ED General - General Mode of Arrival: Medic Information source: Patient - Patient is a poor historian. <RINA STRINGER - Last Filed: 07/08/19 17:54> - General Information source: Patient, Emergency Med Personnel TRAVEL OUTSIDE OF THE [place] IN LAST 30 DAYS: No <ADAMA FLORES - Last Filed: 07/09/19 06:44> - General Chief Complaint: S/S of Possible Stroke Stated Complaint: CHEST PAIN Time Seen by Provider: 07/08/19 14:15 Notes: This 64 year old female patient presents to the emergency department today with left sided weakness prior to arrival by ambulance. EMS states the patient had a headache x2 hours ago and took Excedrin. EMS states the patient had a cough, fever, tingling, and weakness. EMS states the patient felt left sided weakness en route 25 min before arriving to the emergency department. Patient states she had had a non-productive cough the past x2 days. Patient states she coughs to where she wants to vomit and gets chest pain. Patient states she thinks her blood pressure has increased because she felt a cold sweat and dizziness. (ADAMA FLORES) - Related Data Allergies/Adverse Reactions: Iodinated Contrast Media [Iodinated Contrast- Oral and IV Dye] Allergy (Intermediate, Verified 10/26/18 23:56) IVP dye Allergy (Intermediate, Uncoded 08/26/18 08:55) rash Past Medical History - General Information source: Patient, Emergency Med Personnel - Social History Smoking Status: Never Smoker Cigarette use (# per day): No Family History: CAD, CVA, Malignancy - Past Medical History Cardiac Medical History: Reports: Hx Hypercholesterolemia, Hx Hypertension Pulmonary Medical History: Reports: Hx Pneumonia Neurological Medical History: Reports: Hx Cerebrovascular Accident - Patient reports "mini stroke" Renal/ Medical History: Reports: Hx Kidney Stones GI Medical History: Reports: Hx Gastroesophageal Reflux Disease, Hx Hiatal Hernia, Hx Ulcer Musculoskeletal Medical History: Reports Hx Arthritis Psychiatric Medical History: Reports: Hx Depression, Hx Post Traumatic Stress Disorder Traumatic Medical History: Reports: Hx Fractures - left wrist Past Surgical History: Reports: Hx Abdominal Surgery - Hernia mesh placed, Hx Adenoidectomy, Hx Appendectomy, Hx Cholecystectomy, Hx Hysterectomy, Hx Orthopedic Surgery - carpal tunnel, Other - Sigmoid colectomy, rectopexy Dr. Fowler 2013; abdominal wall hernia surg - Immunizations Hx Diphtheria, Pertussis, Tetanus Vaccination: Yes Hx Pneumococcal Vaccination: 01/17/18 <ADAMA FLORES - Last Filed: 07/09/19 06:44> Review of Systems - Review of Systems Constitutional: See HPI, Fever EENT: No symptoms reported Cardiovascular: See HPI, Chest pain, Dizziness Respiratory: See HPI, Cough Gastrointestinal: No symptoms reported Genitourinary: No symptoms reported Female Genitourinary: No symptoms reported Musculoskeletal: No symptoms reported Skin: No symptoms reported Hematologic/Lymphatic: No symptoms reported Neurological/Psychological: See HPI, Weakness, Headaches -: Yes All other systems reviewed and negative <ADAMA FLORES - Last Filed: 07/09/19 06:44> Physical Exam - General General appearance: Anxious In distress: Moderate - HEENT Head: Normocephalic, Atraumatic Eyes: Normal Pupils: PERRL Ears: Normal External canal: Normal Tympanic membrane: Normal Pharynx: No: Erythema Neck: Normal - Respiratory Respiratory status: No respiratory distress Breath sounds: Normal Chest palpation: Other - Tenderness with palpation to the upper left lateral chest wall. - Cardiovascular Rhythm: Regular Heart sounds: Normal auscultation Murmur: No - Abdominal Inspection: Obese Distension: No distension Bowel sounds: Normal Tenderness: Nontender - Extremities General upper extremity: Other - Left upper extremity general weakness. Shoulder: Tender - Tenderness with palpation to the left shoulder. Knee: Tender - Tenderness with movement for left knee. - Neurological Neuro grossly intact: Yes Cognition: Normal Orientation: AAOx4 - Psychological Associated symptoms: Uncooperative - Skin Skin Temperature: Warm Skin Moisture: Dry Skin Color: Normal <ADAMA FLORES - Last Filed: 07/09/19 06:44> - Vital signs Vitals: Resp Pulse Ox 21 H 99 07/08/19 14:27 07/08/19 14:27 Course - Laboratory Result Diagrams: 07/08/19 13:45 07/08/19 13:45 <RINA STRINGER - Last Filed: 07/08/19 17:54> - Laboratory Result Diagrams: 07/08/19 13:45 07/08/19 13:45 - Diagnostic Test Radiology reviewed: Image reviewed, Reports reviewed - Transfer of Care Care transferred to following provider: transferred to Dr. Stringer <ADAMA FLORES - Last Filed: 07/09/19 06:44> - Re-evaluation Re-evalutation: 07/08/19 17:59 I assumed the patient's care from Dr. Flores who documented NIH score 0. Patient does have limitation of movement in the left arm and left lower extremity secondary to degenerative joint disease/arthritis/pain, however, no sensory loss, motor function flexion extension at the elbow and extension of the arm are intact. I discussed the patient with the hospitalist, MRI of the brain is being ordered and the patient is being admitted to the hospital for further evaluation of her neurologic event. Transient in nature, with NIH of 0, the patient is not a candidate for TPA. Patient had a negative flu test, negative strep test, and question of further evaluation for COVID 19. (RINA STRINGER) 07/08/19 15:22 Intractable cough has subsided. Chest xray without any infiltrate or acute findings. (ADAMA FLORES) - Vital Signs Vital signs: Temp Pulse Resp BP Pulse Ox 98.6 F 66 18 138/67 H 98 07/08/19 23:41 07/08/19 23:41 07/08/19 23:41 07/08/19 23:41 07/08/19 23:41 - Diagnostic Test Radiology results interpreted by me: 07/08/19 15:23 ct scan of head shows no acute process. Chest xray shows no acute process. (ADAMA FLORES) - EKG Interpretation by Me Additional EKG results interpreted by me: 07/08/19 15:25 ekg 12 lead: time today ,14:33 normal sinus rythym. no acute changes .artifact present noted in lateral chest leads. (ADAMA FLORES) Discharge - Discharge Admitting Provider: Judy (Hospitalist) Unit Admitted: Medical Floor <RINA STRINGER - Last Filed: 07/08/19 17:54> <ADAMA FLORES - Last Filed: 07/09/19 06:44> - Discharge Clinical Impression: Left-sided weakness, TIA (transient ischemic attack) Chest pain Qualifiers: Chest pain type: unspecified Qualified Code(s): R07.9 - Chest pain, unspecified Condition: Good Disposition: ADMITTED INPATIENT ED NIH Stroke Scale - NIH Stroke Scale *: 1. NIH scale should be completed with appropriate accompanying assessment tools. *: 2. The NIH should reflect what the patient is capable of doing and should not be coached by the clinician. 1a. Level of Consciousness: 0=Alert;keenly responsive -: 1=Drowsy -: 2=Obtunded -: 3=Coma/unresponsive or reflex to noxious stimuli. 1a. Responses: 1 1b. Orientation Questions: a. What month is it? -: b. How old are you? -: 0=Answers both questions correctly. -: 1=Answers one question correctly or patient is intubated or has orotracheal trauma. -: 2=Answers neither question correctly. 1b. Responses: 0 1c. Response to commands: a. Open and close eyes? -: b. 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 -: Credit is given despite weakness. Demonstration of task is permitted. Substitute command if hands cannot be used. -: 0=Performs both tasks correctly -: 1=Performs one task correctly -: 2=Performs neither task correctly 1c. Responses: 0 2. Gaze: Establish eye contact and instruct patient to "Follow my finger" -: 0=Normal -: 1=Partial gaze palsy. Gaze is abnormal in one or both eyes, but where forced deviation or total gaze paresis is not present. -: 2=Forced deviation or total gaze paresis. 2. Responses: 0 3. Visual Becerra: Sees fingers in all four quadrants. -: 0=No visual loss. -: 1=Partial hemianopsia. -: 2=Complete hemianopsia. -: 3=Bilateral hemianopsia (including Cortical blindness) 4. Facial Movement: Instruct patient to: -: a. Show me your teeth -: b. Raise your eyebrows -: c. Close your eyes -: d. Smile -: 0=Normal symmetrical movement -: 1=Minor paralysis (flattened nasolabial fold, asymmetry on smiling). -: 2=Partial paralysis (total or near total paralysis of lower face). -: 3=Complete paralysis of upper and lower face 4. Responses: 0 5. Motor functions (left arm): Alternate sides and extend each arm with palms down (90 degrees if sitting or 45 degrees for supine). -: 0=No drift;limb holds for full 10 seconds. -: 1=Drift; limb holds but drifts down before full 10 seconds, but does not hit bed. -: 2=Some effort against gravity; limb cannot get to or maintain position. -: 3=No effort against gravity; limb falls. -: 4=No movement. -: UN=Amputation, joint fusion, explain in comments. 5. Responses (left arm): 2 5. Motor Functions (right arm): Alternate sides and extend each arm with palms down (90 degrees if sitting or 45 degrees for supine). -: 0=No drift;limb holds for full 10 seconds. -: 1=Drift; limb holds but drifts down before full 10 seconds, but does not hit bed. -: 2=Some effort against gravity; limb cannot get to or maintain position. -: 3=No effort against gravity; limb falls. -: 4=No movement. -: UN=Amputation, joint fusion, explain in comments. 5. Responses (right arm): 0 6. Motor Functions (left leg): With patient lying supine, alternate sides and extend each leg (30 degrees always while supine). -: 0=No drift, leg holds position for full 5 seconds -: 1=Drift; leg falls before full 5 seconds but does not hit bed. -: 2=Some effort against gravity, leg falls to bed but some effort against gravity. -: 3=No effort against gravity, leg falls to bed immediately. -: 4=No movement. -: UN=Amputation, joint fusion; explain in comments. 6. Responses (left leg): 2 6. Motor Functions (right leg): With patient lying supine, alternate sides and extend each leg (30 degrees always while supine). -: 0=No drift, leg holds position for full 5 seconds -: 1=Drift; leg falls before full 5 seconds but does not hit bed. -: 2=Some effort against gravity, leg falls to bed but some effort against gravity. -: 3=No effort against gravity, leg falls to bed immediately. -: 4=No movement. -: UN=Amputation, joint fusion; explain in comments. 6. Responses (right leg): 0 7. Limb Ataxia: With eyes open instruct patient to: -: a. "Touch your finger to your nose". -: b. "Touch your heel to your sandhu" -: 0=Absent -: 1=Present in one limb. -: 2=Present in two limbs. -: UN=Amputation or joint fusion; explain in comments. 7. Responses: UN 8. Sensory: Test sensation using pinprick or noxious stimuli. Test as many body parts as possible. -: 0=Normal;no sensory loss -: 1=Mile to moderate sensory loss (patient feels pin prick but is less sharp on affected side). -: 2=Severe or total sensory loss. 8. Responses: 0 9. Best Language: Instruct patient to: -: a. "Describe what you see in this picture." -: b. "Name the items in this picture." -: c. "Read these sentences." -: 0=No aphasia, normal -: 1=Mild to moderate aphasia. -: 2=Severe aphasia -: 3=Mute, global aphasia, no usable speech or auditory comprehension. 9. Responses: 0 10. Articulation, Dysarthia: Instruct patient to: -: "Read these words" or "Repeat these words" -: 0=Normal -: 1=Mild to moderate; patient may slur some words but can be understood without difficulty. -: 2=Severe; patients speech so slurred as to be unintelligible in the absence of dysphasia. -: UN=Intubated or other physical barrier, explain in comments. 11. Extinction or inattention: 0=No abnormality -: 1= Visual, tactile, auditory, spatial, or personal inattention or extinction to bilateral simulation in one or the sensory modalities. -: 2=Profound rebecca-inattention or rebecca-inattention to more than one modality; does not recognize own hand. Total Score: 5 <ADAMA FLORES - Last Filed: 07/09/19 06:44> - NIH Stroke Scale Notes: NIH score is inaccurate due to patient's initial presentation of complaints of chest pain /cough/ anxiety state/. Recommend repeat exam once patient is settled in room. (ADAMA FLORES) I personally performed the services described in the documentation, reviewed and edited the documentation which was dictated to the scribe in my presence, and it accurately records my words and actions.
[2019-07-09] MEDS ORDERED: RALOXIFENE HCL 60 MG TABLET PO SCH (08:00)
[2019-07-09 08:31] LABS: ABSOLUTE EOSINOPHILS # (AUTO) 0.1 10^3/uL (0.0-0.6); ABSOLUTE LYMPHOCYTES (AUTO) 1.3 10^3/uL (0.5-4.7); ABSOLUTE MONOCYTES (AUTO) 0.4 10^3/uL (0.1-1.4); ABSOLUTE NEUT (AUTO) 2.5 10^3/uL (1.7-8.2); BASOPHILS % (AUTO) 0.8 % (0-2); EOSINOPHILS % (AUTO) 2.8 % (0-6); HEMATOCRIT 38.1 % (36.0-47.0); HEMOGLOBIN 12.8 g/dL (12.0-15.5); LYMPHOCYTES % (AUTO) 30.2 % (13-45); MEAN CORPUSCULAR HEMOGLOBIN 29.9 pg (27.0-33.4); MEAN CORPUSCULAR HGB CONC 33.5 g/dL (32.0-36.0); MEAN CORPUSCULAR VOLUME 89 fl (80-97); MONOCYTES % (AUTO) 8.4 % (3-13); PLATELET COUNT 206 10^3/uL (150-450); RED BLOOD COUNT 4.27 10^6/uL (3.72-5.28); RED CELL DISTRIBUTION WIDTH 12.8 % (11.5-14.0); SEGMENTED NEUTROPHILS % (AUTO) 57.8 % (42-78); TOTAL CELLS COUNTED % (AUTO) 100 %; WHITE BLOOD COUNT 4.3 10^3/uL (4.0-10.5)
[2019-07-09 08:51] LABS: ANION GAP 6 (5-19); BLOOD UREA NITROGEN 9 mg/dL (7-20); CALCIUM 8.4 mg/dL (8.4-10.2); CARBON DIOXIDE 24 mmol/L (22-30); CHLORIDE 108 mmol/L (98-107); GLUCOSE 90 mg/dL (75-110); POTASSIUM 4.5 mmol/L (3.6-5.0)
[2019-07-09 09:03] LABS: CREATINE KINASE MB 0.49 ng/mL (<4.55)
[2019-07-09] MEDS: DOCUSATE SODIUM 100 MG CAPSULE PO SCH (09:05)
[2019-07-09] MEDS: ENOXAPARIN SODIUM INJ 40 MG/0.4 ML DISP.SYRIN SUBCUT SCH (09:06)
[2019-07-09] MEDS: METOCLOPRAMIDE HCL 10 MG TABLET PO SCH ×4 (09:06→21:39)
[2019-07-09] MEDS: CLOPIDOGREL BISULFATE 75 MG TABLET PO SCH (09:06)
[2019-07-09 09:09] LABS: TROPONIN I < 0.012 ng/mL
[2019-07-09] MEDS ORDERED: NITROGLYCERIN 0.4 MG/TAB 25 TAB/BOTTLE SL PRN (11:42)
[2019-07-09] MEDS ORDERED: BACLOFEN 10 MG TABLET PO PRN (11:42)
[2019-07-09] MEDS ORDERED: ZOLPIDEM TARTRATE 5 MG TABLET PO PRN (11:56)
--- NOTE | 2019-07-09 12:32 | EKG REPORT ---
SEVERITY:- BORDERLINE ECG - SINUS RHYTHM BORDERLINE T WAVE ABNORMALITIES : Confirmed by: Yari Gamboa MD 09-Jul-2019 12:31:58
--- NOTE | 2019-07-09 14:51 | PDOC PROGRESS REPORT ---
Subjective Progress Note for:: 07/09/19 Subjective:: The patient is resting in bed. She states that she does not feel much better. She still has a cough and a headache. She states the headache is worse with coughing. She has no chest pain but she does have epigastric pain. It is difficult to evaluate as she has polyarthralgias and chronic pain. She is resting on room air. Reason For Visit: TIA, CHEST PAIN, DEGENETIVE JOINT DISEASE, Physical Exam Vital Signs: Temp Pulse Resp BP Pulse Ox 98.8 F 65 12 132/65 H 98 07/09/19 11:54 07/09/19 11:54 07/09/19 11:54 07/09/19 11:54 07/09/19 11:54 Intake & Output 07/08/19 07/09/19 07/10/19 06:59 06:59 06:59 Intake Total 1209 100 Balance 1209 100 Weight 67.2 kg General appearance: PRESENT: cooperative, mild distress, well-developed Head exam: PRESENT: atraumatic, normocephalic Ear exam: PRESENT: normal external ear exam. ABSENT: bleeding, drainage Respiratory exam: PRESENT: clear to auscultation alice, symmetrical, unlabored. A BSENT: rales, rhonchi, tachypnea, wheezes Cardiovascular exam: PRESENT: RRR, +S1, +S2 GI/Abdominal exam: PRESENT: diminished bowel sounds, soft, tenderness - Tender across the epigastrium. ABSENT: distended, guarding Rectal exam: PRESENT: deferred Gentrourinary exam: ABSENT: indwelling catheter Extremities exam: ABSENT: pedal edema Musculoskeletal exam: PRESENT: normal inspection Neurological exam: PRESENT: alert, awake, oriented to person, oriented to place, oriented to time, oriented to situation, CN II-XII grossly intact. ABSENT: altered Psychiatric exam: PRESENT: flat affect. ABSENT: agitated, anxious Results Laboratory Results: 07/09/19 08:07 07/09/19 08:07 07/08/19 07/08/19 07/08/19 13:45 13:45 18:00 WBC 6.3 RBC 4.56 Hgb 14.1 Hct 39.9 MCV 88 MCH 30.9 MCHC 35.3 RDW 12.8 Plt Count 250 Seg Neutrophils % 63.9 Sodium 138.7 Potassium 4.4 Chloride 102 Carbon Dioxide 23 Anion Gap 14 BUN 9 Creatinine 0.70 Est GFR ( Amer) > 60 Glucose 105 Calcium 9.6 Magnesium Total Bilirubin 0.5 AST 28 Alkaline Phosphatase 83 Total Protein 8.0 Albumin 4.8 Urine Color COLORLESS Urine Appearance CLEAR Urine pH 8.0 Ur Specific [place] 1.004 Urine Protein NEGATIVE Urine Glucose (UA) NEGATIVE Urine Ketones NEGATIVE Urine Blood NEGATIVE 07/09/19 07/09/19 08:07 08:07 WBC 4.3 RBC 4.27 Hgb 12.8 Hct 38.1 MCV 89 MCH 29.9 MCHC 33.5 RDW 12.8 Plt Count 206 Seg Neutrophils % 57.8 Sodium 138.2 Potassium 4.5 Chloride 108 H Carbon Dioxide 24 Anion Gap 6 BUN 9 Creatinine 0.64 Est GFR ( Amer) > 60 Glucose 90 Calcium 8.4 Magnesium 2.4 H Total Bilirubin AST Alkaline Phosphatase Total Protein Albumin Urine Color Urine Appearance Urine pH Ur Specific [place] Urine Protein Urine Glucose (UA) Urine Ketones Urine Blood 07/08/19 07/08/19 07/08/19 13:45 13:45 19:10 Creatine Kinase 45 CK-MB (CK-2) 0.38 0.48 Troponin I < 0.012 < 0.012 NT-Pro-B Natriuret Pep 25 30 07/09/19 07/09/19 00:57 08:07 Creatine Kinase CK-MB (CK-2) 0.53 0.49 Troponin I < 0.012 < 0.012 NT-Pro-B Natriuret Pep Impressions: Head CT 07/08/19 14:16 IMPRESSION: NORMAL BRAIN CT WITHOUT CONTRAST. EVIDENCE OF ACUTE STROKE: NO. Chest X-Ray 07/08/19 14:17 IMPRESSION: NO ACUTE RADIOGRAPHIC FINDING IN THE CHEST. Assessment and Plan - Diagnosis (1) Cough Is this a current diagnosis for this admission?: Yes Plan: 07/09/2019 The cough is most likely related to a viral illness. She was tested for Covid- 19 and this is pending. Influenza and rapid strep were both negative. Supportive symptomatic treatment at this point. She does state that the cough is making her headache worse. Unfortunately the MRI machine is unavailable today. The likelihood of a subdural hematoma/subarachnoid hemorrhage is small however it is a consideration and I plan to obtain an MRI study in the morning. (2) TIA (transient ischemic attack) Is this a current diagnosis for this admission?: Yes Plan: 07/09/2019 The symptoms that she reported certainly could be reflective of an TIA. The majority of symptoms are resolved. She does have chronic joint pain and so sometimes it is difficult to assess. Serial troponins are negative so it is very unlikely that the symptoms in her arm/chest are cardiac in nature. She is now on aspirin and Plavix and she will continue her statin therapy. (3) Chest pain Qualifiers: Chest pain type: other chest pain Qualified Code(s): R07.89 - Other chest pain; R07.8 - Other chest pain Is this a current diagnosis for this admission?: Yes Plan: 07/09/2019 The patient has presented to this hospital on many occasions with complaints of chest pain. She has always ruled out for an acute coronary syndrome. She had 4 serial troponins less than 0.012. Chest pain in fact is resolved at this point. (4) Possible viral illness Is this a current diagnosis for this admission?: Yes Plan: 07/09/2019 Her constellation of symptoms certainly could be viral in nature. She was suspected of Covid-19 in the emergency department. She is currently in isolation with test results pending. Unfortunately due to the volume of testing the results will not likely be available for 6 to 7 days. I explained to the patient that if her MRI is negative then she will be discharged home and will need to follow home quarantine protocols. (5) Chronic pain Qualifiers: Chronic pain type: chronic pain syndrome Qualified Code(s): G89.4 - Chronic pain syndrome Is this a current diagnosis for this admission?: Yes Plan: 07/09/2019 The patient is on several medications for pain including anti-inflammatories. That does make it difficult to tease out other sources of pain especially since she has multiple joints involved. We will continue her current management with anti-inflammatories and pain medications. (6) Left-sided weakness Is this a current diagnosis for this admission?: Yes Plan: 07/09/2019 The patient appears to be back at baseline as noted above. Will monitor overnight and reassess in the morning. If the MRI machine is available we will scan the patient to rule out any type of subdural hematoma or subarachnoid hemorrhage. I anticipate discharge to home tomorrow. (7) Hypertension Qualifiers: Hypertension type: essential hypertension Qualified Code(s): I10 - Essential (primary) hypertension Is this a current diagnosis for this admission?: Yes Plan: 07/09/2019 The patient's blood pressures are still slightly elevated. There improved from the time of admission. We will resume her normal regimen. We can expand the regimen if warranted. With her history of hypertension a subarachnoid hemorrhage/subdural hematoma is unlikely but not out of the question. I will obtain the MRI scan if the machine is available tomorrow. There certainly was no indication of a bleed on the CT scan and this is supportive of no new intracranial process. (8) Depression Qualifiers: Depression Type: unspecified Qualified Code(s): F32.9 - Major depressive disorder, single episode, unspecified Is this a current diagnosis for this admission?: Yes Plan: 07/09/2019 The patient has a long history of psychiatric illness including depression and PTSD. We will continue her home medication regimen. (9) PTSD (post-traumatic stress disorder) Is this a current diagnosis for this admission?: Yes Plan: 07/09/2019 As above (10) Chronic nausea Is this a current diagnosis for this admission?: Yes Plan: 07/09/2019 The patient has a history of reflux and hiatal hernia. The chronic nausea certainly could be related. She is on scheduled Reglan for forward motility as well as proton pump inhibitors. We will continue her current medication regimen and have antiemetics available. - Plan Summary Summary: Patient has already started to have a work-up for respiratory and contact isolation in the emergency room , therefore I have recommended they continue this, patient up on the fifth floor isolation purposes. Patient will need an MRI of the brain done as soon as our machine is up and running. Patient was placed on Plavix in the meantime. We will flu swab and rapid strep test was negative repeat studies are pending. She will have serial troponins for the sake of completeness even though she is been ruled out in the past. I do not strongly suspect TIA or CVA. This does appear to be some type of viral syndrome probably benign. No current indication clinically for antibiotics at this time. Supportive treatment, continue testing. - Time Time Spent with patient: 15-24 minutes Medications reviewed and adjusted accordingly: Yes Anticipated discharge: Home Within: within 48 hours
[2019-07-09] MEDS: ONDANSETRON HCL INJ/PF 4 MG/2 ML SDV IV PRN (14:59)
[2019-07-09] MEDS ORDERED: MIRTAZAPINE 15 MG TABLET PO SCH (22:00)
[2019-07-09] MEDS ORDERED: DULOXETINE HCL 30 MG CAPSULE.DR PO SCH (22:00)
[2019-07-09] MEDS ORDERED: SIMVASTATIN 40 MG TABLET PO SCH (22:00)
[2019-07-09] MEDS ORDERED: (PENDING PHARMACY ID) (Simvastatin [Zocor 80 Mg Tablet] 80 MG) PO SCH (22:00)
[2019-07-09] MEDS ORDERED: (PENDING PHARMACY ID) (Linaclotide [Linzess] 72 MCG) PO SCH (22:00)
[2019-07-09] MEDS ORDERED: AMITRIPTYLINE HCL 10 MG TABLET PO SCH (22:00)
[2019-07-09] MEDS ORDERED: (PENDING PHARMACY ID) (Duloxetine Hcl [Duloxetine Hcl] 60 MG) PO SCH (22:00)
[2019-07-09] MEDS ORDERED: MELATONIN 5 MG TABLET PO PRN (23:44)
[2019-07-10] MEDS ORDERED: RALOXIFENE HCL 60 MG TABLET PO SCH (08:00)
[2019-07-10] MEDS: METOCLOPRAMIDE HCL 10 MG TABLET PO SCH ×2 (08:11→11:21)
[2019-07-10] MEDS: DOCUSATE SODIUM 100 MG CAPSULE PO SCH (09:23)
[2019-07-10] MEDS: CLOPIDOGREL BISULFATE 75 MG TABLET PO SCH (09:24)
[2019-07-10] MEDS: ENOXAPARIN SODIUM INJ 40 MG/0.4 ML DISP.SYRIN SUBCUT SCH (09:24)
[2019-07-10] MEDS ORDERED: ASPIRIN 81 MG TABLET, ENT COATED PO SCH (10:00)
[2019-07-10] MEDS ORDERED: HYDROCHLOROTHIAZIDE 12.5 MG TABLET PO SCH (10:00)
[2019-07-10] MEDS ORDERED: PANTOPRAZOLE SODIUM 40 MG TABLET.DR PO SCH (10:00)
--- NOTE | 2019-07-10 13:57 | PDOC DISCHARGE SUMMARY ---
Impression - Admit/DC Date/PCP Admission Date/Primary Care Provider: 07/08/19 18:37 MAGDALENA SHAH PA-C Discharge Date: 07/10/19 - Discharge Diagnosis (1) Cough Is this a current diagnosis for this admission?: Yes (2) TIA (transient ischemic attack) Is this a current diagnosis for this admission?: Yes (3) Chest pain Is this a current diagnosis for this admission?: Yes (4) Possible viral illness Is this a current diagnosis for this admission?: Yes (5) Chronic pain Is this a current diagnosis for this admission?: Yes (6) Left-sided weakness Is this a current diagnosis for this admission?: Yes (7) Hypertension Is this a current diagnosis for this admission?: Yes (8) Depression Is this a current diagnosis for this admission?: Yes (9) PTSD (post-traumatic stress disorder) Is this a current diagnosis for this admission?: Yes (10) Chronic nausea Is this a current diagnosis for this admission?: Yes (11) Epigastric pain Is this a current diagnosis for this admission?: Yes (12) Hiatal hernia Is this a current diagnosis for this admission?: Yes - Assessment Summary: Patient has already started to have a work-up for respiratory and contact isolation in the emergency room , therefore I have recommended they continue this, patient up on the fifth floor isolation purposes. Patient will need an MRI of the brain done as soon as our machine is up and running. Patient was placed on Plavix in the meantime. We will flu swab and rapid strep test was negative repeat studies are pending. She will have serial troponins for the sake of completeness even though she is been ruled out in the past. I do not strongly suspect TIA or CVA. This does appear to be some type of viral syndrome probably benign. No current indication clinically for antibiotics at this time. Supportive treatment, continue testing. - Additional Information Resuscitation Status: Do Not Intubate Discharge Diet: Other (Comments) - Suggest soft diet caffeine free no spicy foods Discharge Activity: Activity As Tolerated, Balance Activity w/Rest Referrals: [facility] [Outside] (PATIENT TO BE FOLLOWED BY HEALTH DEPT. ON SELF QUARANTINE AT HOME. ONCE THE HEALTH DEPT. RELEASES PATIENT THEN PATIENT MAY SCHEDULE A FOLLOW UP APPT. WITH PCP.) MAGDALENA SHAH PA-C [Primary Care Provider] - Follow up as needed Prescriptions: Sucralfate [Carafate Susp 1 Gm/10 Ml Udcup] 1 gm PO ACHS 14 Days #56 udc Metoclopramide HCl 5 mg PO ACHS 14 Days #56 tablet Pantoprazole Sodium [Protonix [address] Tablet] 40 mg PO BID 14 Days #28 tablet. Home Medications: Amitriptyline HCl [Elavil 10 mg Tablet] 20 mg PO QHS 07/01/18 Aspirin [Ecotrin] 81 mg PO DAILY 07/01/18 Eszopiclone [Lunesta] 3 mg PO HSP PRN 07/01/18 Hydrochlorothiazide [Hydrodiuril 12.5 mg Tablet] 12.5 mg PO DAILY 07/01/18 Meclizine HCl [Antivert 12.5 mg Tablet] 12.5 mg PO BIDP PRN 07/01/18 Nitroglycerin [Nitrostat 0.4 mg (1/150 Gr) Tabs 25/Bottle] 1 tab SL Q5MP PRN 07/01/18 Raloxifene HCl [Evista 60 mg Tablet] 60 mg PO ACBRKFST 07/01/18 Simvastatin [Zocor 80 mg Tablet] 80 mg PO QHS 07/01/18 Tramadol HCl [Ultram 50 mg Tablet] 50 mg PO Q4HP PRN 7 Days #12 tab 06/23/19 Baclofen [Baclofen 10 mg Tablet] 10 mg PO Q8HP PRN 07/09/19 Celecoxib 100 mg PO WBRKFST 07/09/19 Diclofenac Sodium 2 gm TOP QIDP PRN 07/09/19 Duloxetine HCl 60 mg PO QHS 07/09/19 Linaclotide [Linzess] 72 mcg PO Q12 07/09/19 Mirtazapine [Remeron 15 mg Tablet] 15 mg PO QHS 07/09/19 Ondansetron HCl 4 mg PO Q8HP PRN 07/09/19 Metoclopramide HCl 5 mg PO ACHS 14 Days #56 tablet 07/10/19 Pantoprazole Sodium [Protonix [address] Tablet] 40 mg PO BID 14 Days #28 tablet. 07/10/19 Sucralfate [Carafate Susp 1 Gm/10 Ml Udcup] 1 gm PO ACHS 14 Days #56 udc 07/10/19 History of Present Illiness History of Present Illness: CARMEN HORTON is a 64 year old female who comes in for a multitude of complaints. Apparently she called EMS because she was having chest pain and numbness and tingling down her left arm. The patient states this started about noon today.. She still has slight numbness and tingling in the left arm. States whenever she moves her left arm she gets pain into her left shoulder. Patient has a history of chest pain and is been in the ER multiple times for that. Troponins have always been negative. She also says she has been coughing for the last 2 days and having fever and chills. States no one else in the house has the symptoms. Lives with her brother. Patient denies having traveled recently or been around anyone who is traveled recently. Patient has had a CT head scan in the ER that is negative for acute findings. She has had a flu swab and a rapid strep test that were reported negative however the nurse tells me that these were poor specimens, not of good quality swabs. Therefore I have repeated these studies and asked for Covid 19 testing as well. Patient was in the respiratory isolation rooms in the ER and all of e staff were wearing mask and gowns because of potential Covid at 19, when I went to see and examine the patient. I have continued most of patient's home medications and added Plavix as well. Chest x-ray is negative for acute cardiopulmonary disease. If patient's second flu swab is positive she would need to be treated with Tamiflu. Patient does not appear to be septic or toxic. Unfortunately our MRI machine is down and will not be up and running until Wednesday, there was I would have ordered a MRI of the head. I am going to hold on CTA scans of the head and neck at this time. Depending on patient's symptoms she may need CTA of the head and neck we are waiting on Jazzy 19 results. Hospital Course Hospital Course: The patient has an unremarkable hospital course. I do not believe that she had a TIA although it is possible. I would suggest she have an MRI as an outpatient to confirm. Her epigastric and chest discomfort are related to her GI tract. She has a history of hiatal hernia. She had endoscopy several months ago with Dr. Caban. I explained her that I believe the discomfort is related to acid reflux as well as her hiatal hernia. This can also cause a cough. She has been on Reglan in the past and so there may likely be motility issues. Her other medications are unchanged. She does need to minimize or decrease anti-infl ammatories altogether. This is difficult with her chronic pain. We are going to institute a trial of Carafate 1 g before meals and at bedtime, Protonix 40 mg twice a day and decreased dose of Reglan at 5 mg before meals and at bedtime. She will need to follow-up with her primary care provider Magdalena Shah and possibly with Dr. Caban. I explained to her that relief will likely take some time. It was a good sign that when she takes antacid she does get relief but unfortunately it is short lived. Physical Exam Vital Signs: Temp Pulse Resp BP Pulse Ox 99.2 F 75 20 148/68 H 99 07/10/19 12:33 07/10/19 12:33 07/10/19 12:33 07/10/19 12:33 07/10/19 12:33 Intake & Output 07/09/19 07/10/19 07/11/19 06:59 06:59 06:59 Intake Total 1209 2260 1000 Balance 1209 2260 1000 Weight 67.2 kg 68.3 kg General appearance: PRESENT: no acute distress, cooperative Head exam: PRESENT: atraumatic, normocephalic Respiratory exam: PRESENT: clear to auscultation alice, symmetrical, unlabored. ABSENT: prolonged expiratory phas, rales, rhonchi, tachypnea, wheezes Cardiovascular exam: PRESENT: RRR, +S1, +S2 GI/Abdominal exam: PRESENT: normal bowel sounds, soft, tenderness - Still with some tenderness in the epigastric area. ABSENT: distended, guarding Rectal exam: PRESENT: deferred Gentrourinary exam: ABSENT: indwelling catheter Neurological exam: PRESENT: alert, awake, oriented to person, oriented to place, oriented to time, oriented to situation Psychiatric exam: PRESENT: flat affect. ABSENT: agitated, anxious Results Laboratory Results: WBC 4.3 10^3/uL (4.0-10.5) 07/09/19 08:07 RBC 4.27 10^6/uL (3.72-5.28) 07/09/19 08:07 Hgb 12.8 g/dL (12.0-15.5) 07/09/19 08:07 Hct 38.1 % (36.0-47.0) 07/09/19 08:07 MCV 89 fl (80-97) 07/09/19 08:07 MCH 29.9 pg (27.0-33.4) 07/09/19 08:07 MCHC 33.5 g/dL (32.0-36.0) 07/09/19 08:07 RDW 12.8 % (11.5-14.0) 07/09/19 08:07 Plt Count 206 10^3/uL (150-450) 07/09/19 08:07 Lymph % (Auto) 30.2 % (13-45) 07/09/19 08:07 Forest % (Auto) 8.4 % (3-13) 07/09/19 08:07 Eos % (Auto) 2.8 % (0-6) 07/09/19 08:07 Baso % (Auto) 0.8 % (0-2) 07/09/19 08:07 Absolute Neuts (auto) 2.5 10^3/uL (1.7-8.2) 07/09/19 08:07 Absolute Lymphs (auto) 1.3 10^3/uL (0.5-4.7) 07/09/19 08:07 Absolute Monos (auto) 0.4 10^3/uL (0.1-1.4) 07/09/19 08:07 Absolute Eos (auto) 0.1 10^3/uL (0.0-0.6) 07/09/19 08:07 Absolute Basos (auto) 0.0 10^3/uL (0.0-0.2) 07/09/19 08:07 Seg Neutrophils % 57.8 % (42-78) 07/09/19 08:07 PT 12.8 SEC (11.4-15.4) 07/08/19 13:45 INR 0.96 07/08/19 13:45 APTT 26.3 SEC (23.5-35.8) 07/08/19 13:45 Sodium 138.2 mmol/L (137-145) 07/09/19 08:07 Potassium 4.5 mmol/L (3.6-5.0) 07/09/19 08:07 Chloride 108 mmol/L (98-107) H 07/09/19 08:07 Carbon Dioxide 24 mmol/L (22-30) 07/09/19 08:07 Anion Gap 6 (5-19) 07/09/19 08:07 BUN 9 mg/dL (7-20) 07/09/19 08:07 Creatinine 0.64 mg/dL (0.52-1.25) 07/09/19 08:07 Est GFR ( Amer) > 60 (>60) 07/09/19 08:07 Est GFR (MDRD) Non-Af > 60 (>60) 07/09/19 08:07 Glucose 90 mg/dL (75-110) 07/09/19 08:07 Calcium 8.4 mg/dL (8.4-10.2) 07/09/19 08:07 Magnesium 2.4 mg/dL (1.6-2.3) H 07/09/19 08:07 Total Bilirubin 0.5 mg/dL (0.2-1.3) 07/08/19 13:45 Direct Bilirubin 0.3 mg/dL (0.0-0.4) 07/08/19 13:45 Neonat Total Bilirubin Not Reportable 07/08/19 13:45 Neonat Direct Bilirubin Not Reportable 07/08/19 13:45 Neonat Indirect Bili Not Reportable 07/08/19 13:45 AST 28 U/L (14-36) 07/08/19 13:45 ALT 17 U/L (<35) 07/08/19 13:45 Alkaline Phosphatase 83 U/L (38-126) 07/08/19 13:45 Creatine Kinase 45 U/L (30-135) 07/08/19 13:45 CK-MB (CK-2) 0.49 ng/mL (<4.55) 07/09/19 08:07 Troponin I < 0.012 ng/mL 07/09/19 08:07 NT-Pro-B Natriuret Pep 30 pg/mL (<125) 07/08/19 19:10 Total Protein 8.0 g/dL (6.3-8.2) 07/08/19 13:45 Albumin 4.8 g/dL (3.5-5.0) 07/08/19 13:45 Urine Color COLORLESS 07/08/19 18:00 Urine Appearance CLEAR 07/08/19 18:00 Urine pH 8.0 (5.0-9.0) 07/08/19 18:00 Ur Specific Nadeau 1.004 07/08/19 18:00 Urine Protein NEGATIVE mg/dL (NEGATIVE) 07/08/19 18:00 Urine Glucose (UA) NEGATIVE mg/dL (NEGATIVE) 07/08/19 18:00 Urine Ketones NEGATIVE mg/dL (NEGATIVE) 07/08/19 18:00 Urine Blood NEGATIVE (NEGATIVE) 07/08/19 18:00 Urine Nitrite (Reflex) NEGATIVE (NEGATIVE) 07/08/19 18:00 Urine Bilirubin NEGATIVE (NEGATIVE) 07/08/19 18:00 Urine Urobilinogen NEGATIVE mg/dL (<2.0) 07/08/19 18:00 Leukocyte Esterase Rfl NEGATIVE (NEGATIVE) 07/08/19 18:00 Squamous Epi Cells Auto <1 /HPF 07/08/19 18:00 Urine Mucus (Auto) RARE /LPF 07/08/19 18:00 Urine Ascorbic Acid NEGATIVE (NEGATIVE) 07/08/19 18:00 Influenza A (Rapid) NEGATIVE (NEGATIVE) 07/08/19 14:56 Influenza B (Rapid) NEGATIVE (NEGATIVE) 07/08/19 14:56 Group A Strep Rapid NEGATIVE (NEGATIVE) 07/08/19 14:56 07/08/19 07/08/19 07/09/19 13:45 19:10 00:57 CK-MB (CK-2) 0.38 0.48 0.53 Troponin I < 0.012 < 0.012 < 0.012 NT-Pro-B Natriuret Pep 25 30 07/09/19 08:07 CK-MB (CK-2) 0.49 Troponin I < 0.012 NT-Pro-B Natriuret Pep Impressions: Head CT 07/08/19 14:16 IMPRESSION: NORMAL BRAIN CT WITHOUT CONTRAST. EVIDENCE OF ACUTE STROKE: NO. Chest X-Ray 07/08/19 14:17 IMPRESSION: NO ACUTE RADIOGRAPHIC FINDING IN THE CHEST. Plan Health Concerns: Ongoing epigastric pain likely due to GI source. This has caused multiple visits to the emergency department. Try to encourage her to understand this is not likely cardiac as she has had many rule out admissions. It is uncomfortable and hopefully the regimen outlined above. The big concern is her chronic pain and use of anti-inflammatories. She does not use caffeinated products nor does she eat spicy foods. Plan of Treatment: As above. In addition to the medications she is going to try soft foods. She is going to try and elevate the head of her bed when she sleeps. Goals: Because of Covid-19 testing and she will need to self quarantine until the health department contact her with results. Time Spent: Greater than 30 Minutes Stroke Is this a Stroke Patient?: No Acute Heart Failure - Is this a Heart Failure Patient?: No
[2019-07-10 14:02] VITALS: BP 142/68
[2019-07-13] MEDS ORDERED: CELECOXIB 100 MG CAPSULE PO SCH (08:00)
== END 2019-07-10 14:30 | disposition home or self-care (01) | DRG 866 ==
LOC: ER 14:11 → EH 18:37 → 5 20:21
PROVIDERS: ADMIT Hospitalist; ATTEND Hospitalist
DX: B34.9 Viral infection, unspecified (principal); G89.29 Other chronic pain; I10 Essential (primary) hypertension; F43.10 Post-traumatic stress disorder, unspecified; K44.9 Diaphragmatic hernia without obstruction or gangrene; Z66 Do not resuscitate; E78.5 Hyperlipidemia, unspecified; M25.50 Pain in unspecified joint; Z86.73 Personal history of transient ischemic attack (TIA), and cerebral infarction without residual deficits; Z90.49 Acquired absence of other specified parts of digestive tract; Z90.710 Acquired absence of both cervix and uterus; Z82.3 Family history of stroke; Z82.49 Family history of ischemic heart disease and other diseases of the circulatory system; Z79.82 Long term (current) use of aspirin; Z79.899 Other long term (current) drug therapy; Z91.041 Radiographic dye allergy status; R05 Cough; R50.9 Fever, unspecified; R07.9 Chest pain, unspecified; F32.9 Major depressive disorder, single episode, unspecified
CPT/HCPCS: 36415; 70450; 71045; 80048; 80053; 81001; 82550; 82553; 83735; 83880; 84484; 85025; 85610; 85730; 87040; 87070; 87635; 87804; 87880; 93005; 93010; 96361; 96374; 99285; J1650; J1885; J2060; J2405; J3490; J7030; S0119

== ENCOUNTER 2019-07-15 06:57 | Inpatient (IN) | payer MEDICARE, MEDICAID ==
[2019-07-15] MEDS ORDERED: ONDANSETRON HCL INJ/PF 4 MG/2 ML SDV IV ONE ×3 (07:02→13:38)
[2019-07-15 07:57] LABS: ABSOLUTE LYMPHOCYTES (AUTO) 1.3 10^3/uL (0.5-4.7); ABSOLUTE MONOCYTES (AUTO) 0.8 10^3/uL (0.1-1.4); ABSOLUTE NEUT (AUTO) 15.5 10^3/uL (1.7-8.2); BASOPHILS % (AUTO) 0.2 % (0-2); HEMATOCRIT 42.6 % (36.0-47.0); LYMPHOCYTES % (AUTO) 7.3 % (13-45); MEAN CORPUSCULAR HEMOGLOBIN 30.8 pg (27.0-33.4); MEAN CORPUSCULAR HGB CONC 35.2 g/dL (32.0-36.0); MEAN CORPUSCULAR VOLUME 87 fl (80-97); MONOCYTES % (AUTO) 4.6 % (3-13); PLATELET COUNT 336 10^3/uL (150-450); RED BLOOD COUNT 4.87 10^6/uL (3.72-5.28); RED CELL DISTRIBUTION WIDTH 13.1 % (11.5-14.0); SEGMENTED NEUTROPHILS % (AUTO) 87.9 % (42-78); TOTAL CELLS COUNTED % (AUTO) 100 %; WHITE BLOOD COUNT 17.7 10^3/uL (4.0-10.5)
[2019-07-15] MEDS ORDERED: NORMAL SALINE 250 ML IV ONE (08:01)
[2019-07-15 08:20] LABS: ALKALINE PHOSPHATASE 76 U/L (38-126); ANION GAP 14 (5-19); ASPARTATE AMINO TRANSFERASE 40 U/L (14-36); BILIRUBIN,DIRECT 0.4 mg/dL (0.0-0.4); BILIRUBIN,TOTAL 0.9 mg/dL (0.2-1.3); BLOOD UREA NITROGEN 15 mg/dL (7-20); CALCIUM 9.9 mg/dL (8.4-10.2); CARBON DIOXIDE 24 mmol/L (22-30); CHLORIDE 95 mmol/L (98-107); GLUCOSE 178 mg/dL (75-110)
--- NOTE | 2019-07-15 09:03 | RADIOLOGY REPORT (SQ) ---
EXAM DESCRIPTION: KUB/ABDOMEN (SINGLE VIEW) IMAGES COMPLETED DATE/TIME: 07/15/2019 8:48 am REASON FOR STUDY: ruq abd pain/constipation COMPARISON: CT abdomen pelvis 10/26/2018 KUB 10/26/2018, 10/27/2018 NUMBER OF VIEWS: One view. TECHNIQUE: Supine radiographic image of the abdomen acquired. LIMITATIONS: None. FINDINGS: BOWEL GAS PATTERN: Abnormal. There are dilated small bowel loops in the mid epigastrium. Decompressed distal small bowel loops with large amount of stool in the ascending and transverse col on. Sigmoid colon anastomotic melissa in the left lower quadrant. Findings are worrisome for partia l small bowel obstruction CALCIFICATIONS: No suspicious calcifications. SOFT TISSUES: No gross mass or suggestion of organomegaly. HARDWARE: Clips right upper quadrant post cholecystectomy. Rectosigmoid anastomotic melissa. BONES: No acute fracture. No worrisome bone lesions. OTHER: No other significant finding. IMPRESSION: Dilated small bowel loops in the mid epigastrium worrisome for early or partial small zane wel obstruction TECHNICAL DOCUMENTATION: JOB ID: [id number] 2010 [employer]- All Rights Reserved Reading location - IP/workstation name: [email or web address]
[2019-07-15 09:06] LABS: APPEARANCE,URINE SLIGHTLY-CLOUDY; BILIRUBIN,URINE NEGATIVE (NEGATIVE); COLOR,URINE YELLOW; GLUCOSE, URINE NEGATIVE (NEGATIVE); KETONES,URINE TRACE mg/dL (NEGATIVE); LEUKOCYTE ESTERASE,URINE MODERATE (NEGATIVE); NITRITE,URINE NEGATIVE (NEGATIVE); PROTEIN,URINE 30 mg/dL (NEGATIVE); URINE SPECIFIC GRAVITY 1.018
[2019-07-15 09:18] LABS: URINE AMPHETAMINES SCREEN NEGATIVE; URINE BARBITURATES SCREEN NEGATIVE; URINE BENZODIAZEPINES SCREEN NEGATIVE; URINE COCAINE SCREEN NEGATIVE; URINE MARIJUANA (THC) SCREEN NEGATIVE; URINE METHADONE SCREEN NEGATIVE; URINE PHENCYCLIDINE SCREEN NEGATIVE
[2019-07-15] MEDS ORDERED: MORPHINE SULFATE 10 MG/ML INJ IV ONE (10:21)
[2019-07-15] MEDS ORDERED: DIPHENHYDRAMINE HCL 50 MG/ML VIAL IV ONE (10:42)
[2019-07-15] MEDS ORDERED: FAMOTIDINE INJ/PF 20 MG/2 ML SDV IV ONE (10:42)
--- NOTE | 2019-07-15 14:13 | RADIOLOGY REPORT (SQ) ---
EXAM DESCRIPTION: CT ABD/PELVIS ORAL ONLY IMAGES COMPLETED DATE/TIME: 07/15/2019 1:54 pm REASON FOR STUDY: abd pain/SBO COMPARISON: Radiographs from earlier. CT from 2019. TECHNIQUE: CT scan of the abdomen and pelvis performed with oral contrast and no intravenous contras t. Images reviewed with lung, soft tissue, and bone windows. Reconstructed coronal and sagittal MPR i mages reviewed. All images stored on PACS. All CT scanners at this facility use dose modulation, iterative reconstruction, and/or weight based d osing when appropriate to reduce radiation dose to as low as reasonably achievable (ALARA). [facility]: Dose Right [facility]: CareDose [facility]: Dose Right [facility]: Teradose 4D [facility]: Smart [employer] RADIATION DOSE: CT Rad equipment meets quality standard of care and radiation dose reduction techniq ues were employed. CTDIvol: 8.0 mGy. DLP: 396 mGy-cm.mGy. LIMITATIONS: None. FINDINGS: LOWER CHEST: Mild motion artifact and subsegmental atelectasis/ scar. NON-CONTRASTED LIVER, SPLEEN, ADRENALS: Evaluation limited by lack of IV contrast. No identified sign ificant masses. PANCREAS: No masses. No peripancreatic inflammatory changes. GALLBLADDER: Surgically absent. RIGHT KIDNEY AND URETER: No solid masses. No significant calcification. No hydronephrosis or hydroure ter. LEFT KIDNEY AND URETER: No solid masses. No significant calcification. No hydronephrosis or hydrouret er. AORTA AND RETROPERITONEUM: No aneurysm. No retroperitoneal masses or adenopathy. BOWEL AND PERITONEAL CAVITY: Stomach and proximal small bowel loops are distended. Enteric contrast only progresses into the most proximal small bowel. Beyond this, there are fluid and debris distende d mid abdominal loops. There appears to be a relative transition point in the epigastrium close to t he anterior abdominal wall deep surface. This suggests adhesions. Please correlate with axial image 48/87 adjacent slices. Moderate proximal colonic stool. Distal loops of small bowel are decompress ed. APPENDIX: Surgically absent. PELVIS, BLADDER, AND ABDOMINAL WALL: Trace pelvic free fluid. Bladder unremarkable. No abdominal wa ll mass or hernia. BONES: No significant findings. OTHER: No other significant finding. IMPRESSION: 1. Small-bowel obstruction. This is in the relatively proximal loops at the level of the umbilicus. Possibly related to adhesions along the anterior abdominal wall. TECHNICAL DOCUMENTATION: JOB ID: [id number] Quality ID # [id number]: Final reports with documentation of one or more dose reduction techniques (e.g., Au tomated exposure control, adjustment of the mA and/or kV according to patient size, use of iterative reconstruction technique) 2010 [employer]- All Rights Reserved Reading location - IP/workstation name: [email or web address]
[2019-07-15] MEDS ORDERED: LIDOCAINE 2% INJ-PF (20 MG/ML) 2 ML AMPUL INJ ONE (14:54)
[2019-07-15] MEDS ORDERED: LIDOCAINE 1% INJ-PF (10 MG/ML) 30 ML SDV ONE (14:54)
[2019-07-15] MEDS ORDERED: LIDOCAINE 1% INJ-PF (10 MG/ML) 30 ML SDV NEB ONE (15:57)
--- NOTE | 2019-07-15 16:32 | RADIOLOGY REPORT (SQ) ---
EXAM DESCRIPTION: CHEST SINGLE VIEW IMAGES COMPLETED DATE/TIME: 07/15/2019 4:22 pm REASON FOR STUDY: post NG tube placement COMPARISON: None. NUMBER OF VIEWS: One view. TECHNIQUE: Single frontal radiographic view of the chest acquired. LIMITATIONS: None. FINDINGS: LUNGS AND PLEURA: No opacities, masses or pneumothorax. No pleural effusion. MEDIASTINUM AND HILAR STRUCTURES: No masses. Contour normal. HEART AND VASCULAR STRUCTURES: Heart normal in size. Normal vasculature. BONES: No acute findings. HARDWARE: Nasogastric tube down, tip appropriately within the stomach. OTHER: No other significant finding. IMPRESSION: Appropriate nasogastric tube. TECHNICAL DOCUMENTATION: JOB ID: [id number] 2010 [employer]- All Rights Reserved Reading location - IP/workstation name: [email or web address]
--- NOTE | 2019-07-15 17:03 | PDOC CONSULTATION ---
Consultation Consult Date: 07/15/19 Attending physician:: ADAMA FLORES Provider Consulted: PIERRE CADET Consult reason:: Small bowel obstruction History of Present Illness Admission Date/PCP: MAGDALENA SHAH PA-C History of Present Illness: CARMEN HORTON is a 64 year old female Is brought to the emergency department via ground rescue complaining of abdominal pain, nausea and vomiting and abdominal distention. Patient was released from the hospital 48 hours ago after a 7day mission for respiratory insufficiency, cough, rule out COVID infection. Her test was sent off on 07 July and is still pending. She tested negative for influenza, and ruled out for acute myocardial infarction. She is now in the emergency department where she had a CT scan of the abdomen and pelvis which showed findings consistent with partial small bowel obstruction, mid proximal small bowel, possible transition point. She had nasogastric tube, 14 Slovak, placed with several 100 cc return. She feels some better. Patient has a long history of multiple partial small bowel obstructions, previous abdominal surgeries including sigmoid colectomy for 9 diverticular disease. She has chronic pain syndrome. She is seen in the emergency department in the rule out COVID wing. Past Medical History Cardiac Medical History: Reports: Hyperlipidema, Hypertension Pulmonary Medical History: Reports: Pneumonia Denies: Asthma, Bronchitis, Chronic Obstructive Pulmonary Disease (COPD), Respiratory Failure, Sleep Apnea, Tuberculosis Neurological Medical History: Endocrine Medical History: Denies: Diabetes Mellitus Type 1, Diabetes Mellitus Type 2 Renal/ Medical History: Denies: End Stage Renal Disease Malignancy Medical History: Denies: Breast Cancer, Cervical Cancer, Leukemia, Lung Cancer, Ovarian Cancer GI Medical History: Reports: Gastroesophageal Reflux Disease, Hiatal Hernia Denies: Crohn's Disease Musculoskeltal Medical History: Reports: Arthritis Denies: Fibromyalgia Psychiatric Medical History: Reports: Depression, Post Traumatic Stress Disorder Denies: Bipolar Disorder, Dementia Hematology: Denies: Anemia, Hemophilia, Sickle Cell Disease Infectious Medical History: Denies: HIV Past Surgical History Past Surgical History: Reports: Adenoidectomy, Appendectomy, Cholecystectomy, Hysterectomy, Orthopedic Surgery - carpal tunnel, Other - Sigmoid colectomy, rsctopexy Dr. Fowler 2013; abdominal wall hernia surg Denies: Amputation, Section, Colostomy, Coronary Artery Bypass Graft, Gastric Bypass Surgery, Herniorrhaphy, Mastectomy, Pacemaker, Tonsillectomy, Tubal Ligation Social History Smoking Status: Never Smoker Frequency of Alcohol Use: None Hx Recreational Drug Use: No Drugs: None Hx Prescription Drug Abuse: No Family History Family History: CAD, CVA, Malignancy Parental Family History Reviewed: No Children Family History Reviewed: No Sibling(s) Family History Reviewed.: No Medication/Allergy Home Medications: Amitriptyline HCl [Elavil 10 mg Tablet] 20 mg PO QHS 07/01/18 Aspirin [Ecotrin] 81 mg PO DAILY 07/01/18 Eszopiclone [Lunesta] 3 mg PO HSP PRN 07/01/18 Hydrochlorothiazide [Hydrodiuril 12.5 mg Tablet] 12.5 mg PO DAILY 07/01/18 Meclizine HCl [Antivert 12.5 mg Tablet] 12.5 mg PO BIDP PRN 07/01/18 Nitroglycerin [Nitrostat 0.4 mg (1/150 Gr) Tabs 25/Bottle] 1 tab SL Q5MP PRN 07/01/18 Raloxifene HCl [Evista 60 mg Tablet] 60 mg PO ACBRKFST 07/01/18 Simvastatin [Zocor 80 mg Tablet] 80 mg PO QHS 07/01/18 Tramadol HCl [Ultram 50 mg Tablet] 50 mg PO Q4HP PRN 7 Days #12 tab 06/23/19 Baclofen [Baclofen 10 mg Tablet] 10 mg PO Q8HP PRN 07/09/19 Celecoxib 100 mg PO WBRKFST 07/09/19 Diclofenac Sodium 2 gm TOP QIDP PRN 07/09/19 Duloxetine HCl 60 mg PO QHS 07/09/19 Linaclotide [Linzess] 72 mcg PO Q12 07/09/19 Mirtazapine [Remeron 15 mg Tablet] 15 mg PO QHS 07/09/19 Ondansetron HCl 4 mg PO Q8HP PRN 07/09/19 Metoclopramide HCl 5 mg PO ACHS 14 Days #56 tablet 07/10/19 Pantoprazole Sodium [Protonix [address] Tablet] 40 mg PO BID 14 Days #28 tablet.dr 07/10/19 Sucralfate [Carafate Susp 1 Gm/10 Ml Udcup] 1 gm PO ACHS 14 Days #56 udc 07/10/19 Allergies/Adverse Reactions: Iodinated Contrast Media [Iodinated Contrast- Oral and IV Dye] Allergy (Intermediate, Verified 10/26/18 23:56) IVP dye Allergy (Intermediate, Uncoded 08/26/18 08:55) rash Review of Systems Constitutional: PRESENT: other - Denies fever Eyes: ABSENT: visual disturbances Ears: ABSENT: hearing changes Cardiovascular: PRESENT: chest pain, other Gastrointestinal: PRESENT: as per HPI Physical Exam Vital Signs: Temp Pulse Resp BP Pulse Ox 98.2 F 88 18 119/56 L 96 07/15/19 08:53 07/15/19 08:43 07/15/19 08:43 07/15/19 08:43 07/15/19 08:43 Intake & Output 07/14/19 07/15/19 07/16/19 06:59 06:59 06:59 Intake Total 250 Balance 250 Weight 64.41 kg General appearance: PRESENT: other - Patient examined in room 5 in the emergency department with isolation gear on the examining physician Head exam: PRESENT: normocephalic Eye exam: PRESENT: EOMI Mouth exam: PRESENT: dry mucosa Neck exam: PRESENT: other - No adenopathy Respiratory exam: PRESENT: clear to auscultation alice Cardiovascular exam: PRESENT: RRR GI/Abdominal exam: PRESENT: other - Slight distention, tender but no rigidity. Rectal exam: PRESENT: deferred Gentrourinary exam: PRESENT: other - Deferred Extremities exam: PRESENT: +1 edema Musculoskeletal exam: PRESENT: full ROM Neurological exam: PRESENT: oriented to person, oriented to place, oriented to time, oriented to situation Psychiatric exam: PRESENT: anxious, other Results Laboratory Results: 07/15/19 07:23 07/15/19 07:24 07/15/19 07/15/19 07/15/19 07:23 07:24 08:35 WBC 17.7 H RBC 4.87 Hgb 15.0 Hct 42.6 MCV 87 MCH 30.8 MCHC 35.2 RDW 13.1 Plt Count 336 Seg Neutrophils % 87.9 H Sodium 133.0 L Potassium 4.0 Chloride 95 L Carbon Dioxide 24 Anion Gap 14 BUN 15 Creatinine 0.78 Est GFR ( Amer) > 60 Glucose 178 H Lactic Acid Calcium 9.9 Total Bilirubin 0.9 AST 40 H Alkaline Phosphatase 76 Total Protein 9.0 H Albumin 5.0 Lipase 82.6 Urine Color YELLOW Urine Appearance SLIGHTLY-CLOUDY Urine pH 5.0 Ur Specific Louise 1.018 Urine Protein 30 H Urine Glucose (UA) NEGATIVE Urine Ketones TRACE H Urine Blood NEGATIVE Urine Nitrite NEGATIVE Ur Leukocyte Esterase MODERATE H Urine WBC (Auto) 13 Urine RBC (Auto) 2 07/15/19 09:45 WBC RBC Hgb Hct MCV MCH MCHC RDW Plt Count Seg Neutrophils % Sodium Potassium Chloride Carbon Dioxide Anion Gap BUN Creatinine Est GFR ( Amer) Glucose Lactic Acid 0.9 Calcium Total Bilirubin AST Alkaline Phosphatase Total Protein Albumin Lipase Urine Color Urine Appearance Urine pH Ur Specific Louise Urine Protein Urine Glucose (UA) Urine Ketones Urine Blood Urine Nitrite Ur Leukocyte Esterase Urine WBC (Auto) Urine RBC (Auto) Impressions: Chest X-Ray 07/15/19 00:00 IMPRESSION: Appropriate nasogastric tube. KUB X-Ray 07/15/19 07:59 IMPRESSION: Dilated small bowel loops in the mid epigastrium worrisome for early or partial small bowel obstruction Abdomen/Pelvis CT 07/15/19 10:37 IMPRESSION: 1. Small-bowel obstruction. This is in the relatively proximal loops at the level of the umbilicus. Possibly related to adhesions along the anterior abdominal wall. Assessment & Plan - Diagnosis (1) Partial small bowel obstruction Is this a current diagnosis for this admission?: Yes Plan: Impression: Recurrent small bowel obstruction, likely partial, in 64-year-old white female well-known to [facility] for multiple previous a dmissions for small bowel obstruction. She does not have an acute abdomen currently. She is on COVID 19 precaution while her test is pending. Recommendations: 1. Patient needs admission, IV fluids, replacement of 14 Slovak nasogastric tube with 18 Slovak. 2. We will repeat abdominal film in the next 12 to 18 hours to assess bowel gas pattern. Hopefully she will open up, but if not, exploratory laparotomy may be required. 3. This was explained to the patient. She expressed understanding agrees to proceed. 4. I discussed the above patient with Dr. Adama Flores; I recommend that the patient be admitted to the hospitalist service with surgery consulting. He is in the process of activating the hospitalist service. (2) Anxiety disorder Is this a current diagnosis for this admission?: Yes (3) Chronic pain Is this a current diagnosis for this admission?: Yes (4) Depression Qualifiers: Depression Type: unspecified Qualified Code(s): F32.9 - Major depressive disorder, single episode, unspecified Is this a current diagnosis for this admission?: Yes (5) History of open sigmoidectomy Is this a current diagnosis for this admission?: Yes (6) Hypertension Qualifiers: Hypertension type: essential hypertension Qualified Code(s): I10 - Essential (primary) hypertension Is this a current diagnosis for this admission?: Yes - Time Time Spent: 30 to 50 Minutes Smoking Cessation Education: 3 to 10 minutes Medications reviewed and adjusted accordingly: Yes Anticipated discharge: Home - Inpatient Certification Based on my medical assessment, after consideration of the patient's comorbidities, presenting symptoms, or acuity I expect that the services needed warrant INPATIENT care.: Yes I certify that my determination is in accordance with my understanding of Medicare's requirements for reasonable and necessary INPATIENT services [42 CFR 412.3e].: Yes Medical Necessity: Need For IV Fluids
--- NOTE | 2019-07-15 17:30 | ER Document Report ---
Entered by ALTAGRACIA SHARP SCRIBE 07/15/19 0757 Acting as scribe for:ADAMA FLORES MD ED General - General Chief Complaint: Abdominal Pain >50 Stated Complaint: ABDOMINAL PAIN Time Seen by Provider: 07/15/19 07:23 Primary Care Provider: MAGDALENA SHAH PA-C [Primary Care Provider] - Follow up as needed Mode of Arrival: Ambulatory Information source: Patient Notes: This 64 year old female patient presents to the emergency department today with complaints of diffuse sharp crampy abdominal pain with associated constipation. Patient has chronic pain and takes pain medications daily. Patient states that this constipation has been an issue for her although for quite some time although she mentions that she took a Linzess two days ago which gave her good results. Patient was recently admitted to this facility for multiple complaints and was discharged on 07/09. Patient had a covid-19 test performed on 07/07 but the results have not come back yet. TRAVEL OUTSIDE OF THE [place] IN LAST 30 DAYS: No - Related Data Allergies/Adverse Reactions: Iodinated Contrast Media [Iodinated Contrast- Oral and IV Dye] Allergy (Intermediate, Verified 10/26/18 23:56) IVP dye Allergy (Intermediate, Uncoded 08/26/18 08:55) rash Home Medications: lunesta Past Medical History - General Information source: Patient - Social History Smoking Status: Never Smoker Cigarette use (# per day): No Frequency of alcohol use: None Drug Abuse: None Lives with: Family Family History: Reviewed & Not Pertinent, CAD, CVA, Malignancy Patient has suicidal ideation: No Patient has homicidal ideation: No - Past Medical History Cardiac Medical History: Reports: Hx Hypercholesterolemia, Hx Hypertension Pulmonary Medical History: Reports: Hx Pneumonia Neurological Medical History: Reports: Hx Cerebrovascular Accident - Patient reports "mini stroke" Renal/ Medical History: Reports: Hx Kidney Stones GI Medical History: Reports: Hx Gastroesophageal Reflux Disease, Hx Hiatal Hernia, Hx Ulcer Musculoskeletal Medical History: Reports Hx Arthritis Psychiatric Medical History: Reports: Hx Depression, Hx Post Traumatic Stress Disorder Traumatic Medical History: Reports: Hx Fractures - left wrist Past Surgical History: Reports: Hx Abdominal Surgery - Hernia mesh placed, Hx Adenoidectomy, Hx Appendectomy, Hx Cholecystectomy, Hx Hysterectomy, Hx Orthopedic Surgery - carpal tunnel, Other - Sigmoid colectomy, rectopexy Dr. Fowler 2013; abdominal wall hernia surg - Immunizations Hx Diphtheria, Pertussis, Tetanus Vaccination: Yes Hx Pneumococcal Vaccination: 01/17/18 Review of Systems - Review of Systems Constitutional: See HPI, Fever - subjective EENT: No symptoms reported Cardiovascular: No symptoms reported Respiratory: No symptoms reported Gastrointestinal: See HPI, Abdominal pain, Vomiting Genitourinary: No symptoms reported Female Genitourinary: No symptoms reported Musculoskeletal: No symptoms reported Skin: No symptoms reported Hematologic/Lymphatic: No symptoms reported Neurological/Psychological: No symptoms reported -: Yes All other systems reviewed and negative Physical Exam - Vital signs Vitals: Temp Pulse Resp BP Pulse Ox 98.4 F 103 H 17 116/86 H 95 07/15/19 06:58 07/15/19 06:58 07/15/19 06:58 07/15/19 06:58 07/15/19 06:58 - Notes Notes: Physical Exam: General: Alert, non-toxic, appears much older than stated age. HEENT: Normocephalic. Atraumatic. PERRL. Extraocular movements intact. Oropharynx clear. Neck: Supple. Non-tender. Respiratory: No respiratory distress. Clear and equal breath sounds bilaterally. Cardiovascular: Regular rate and rhythm. Abdominal: Complains of abdominal pain throughout exam although there is no focal tenderness with palpation. No distension. Hypoactive Bowel Sounds. Back: No gross abnormalities. Extremities: Moves all four extremities. Upper extremities: Normal inspection. Normal ROM. Lower extremities: Normal inspection. No edema. Normal ROM. Neurological: Normal cognition. AAOx4. Normal speech. Psychological: Normal affect. Normal Mood. Skin: Warm. Dry. Normal color. Course - Re-evaluation Re-evalutation: 07/15/19 16:05 Patient now has an NG tube draining bilious liquid from the nasogastric tube into the collection. So far about 400 mL of bilious green liquid. No coffee grounds noted. 07/15/19 16:[address] Alvarado who is knows patient well who will be in to see patient in room 5. 07/15/19 17:19 Multiple discussions with the surgical list Dr. Alvarado and the medical hospitalist admitting team. Currently the decision of the hospitalist team hospitalist doctor is yet to be determined. Dr. Souza will follow up with their decision and complete the chart with the name. 07/15/19 17:29 Document however is doing the admission for Ms. Rowena Montez and is in the department at this time at patient's bedside. Patient also is under 14-day quarantine from her last admission to the hospital 1 week ago patient was discharged home still pending a coronavirus screening test result. - Vital Signs Vital signs: Temp Pulse Resp BP Pulse Ox 98.2 F 88 18 119/56 L 96 07/15/19 08:53 07/15/19 08:43 07/15/19 08:43 07/15/19 08:43 07/15/19 08:43 - Laboratory Result Diagrams: 07/15/19 07:23 07/15/19 07:24 Laboratory results interpreted by me: 07/15/19 07/15/19 07/15/19 07:23 07:24 08:35 WBC 17.7 H Lymph % (Auto) 7.3 L Absolute Neuts (auto) 15.5 H Seg Neutrophils % 87.9 H Sodium 133.0 L Chloride 95 L Glucose 178 H AST 40 H Total Protein 9.0 H Urine Protein 30 H Urine Ketones TRACE H Urine Urobilinogen 2.0 H Ur Leukocyte Esterase MODERATE H Patient has a elevated white blood cell count was 17,000. Labs otherwise appear within normal limits. There is noted leukocyte esterase moderate. Elevated gl ucose of 178 and mild hyponatremia 133. Lactic acid is not elevated - Diagnostic Test Radiology reviewed: Image reviewed - Dr. Flores speaking, Reports reviewed Radiology results interpreted by me: 07/15/19 16:46 Twelve-lead EKG done 07/15/2019 at 1637 shows sinus tachycardia rate of 100 probable old inferior infarct age indeterminate consider anterior infarct age indeterminate. 07/15/19 17:19 Chest x-ray shows NG tube in proper position no acute process otherwise. Discharge - Discharge Clinical Impression: Small bowel obstruction due to adhesions Condition: Fair Disposition: ADMITTED INPATIENT Admitting Provider: Savita (Hospitalist) Unit Admitted: Surgical Floor Referrals: MAGDALENA SHAH PA-C [Primary Care Provider] - Follow up as needed I personally performed the services described in the documentation, reviewed and edited the documentation which was dictated to the scribe in my presence, and it accurately records my words and actions.
[2019-07-15] MEDS ORDERED: DEXTROSE 40% GEL 15 GM TUBE PO PRN ×2 (17:45)
[2019-07-15] MEDS ORDERED: DEXTROSE 50%-WATER 25 GM/50 ML DISP.SYRIN IV PRN ×2 (17:45)
[2019-07-15] MEDS ORDERED: ACETAMINOPHEN SOLN 325 MG/10.15 ML UDCUP PO PRN (17:45)
[2019-07-15] MEDS ORDERED: GLUCAGON,HUMAN RECOMB 1 MG INJ SUBCUT PRN (17:45)
[2019-07-15] MEDS ORDERED: PHARMACY COMMUNICATION ORDER MC NR (18:00)
--- NOTE | 2019-07-15 18:04 | PDOC H&P ---
History of Present Illness Admission Date/PCP: 07/15/19 17:39 MAGDALENA SHAH PA-C Patient complains of: Abdominal pain associated with nausea and vomitings since yesterday History of Present Illness: CARMEN HORTON is a 64 year old female with history of hypertension, hypercholesteremia, osteoarthritis, degenerative disc disease, gallbladder removal, appendicectomy, hysterectomy, chronic constipation came to the emergency room with complaints of abdominal pain since yesterday. Severe abdominal pain associated with nausea and vomitings did not have any bowel movement for the last 2 days. Decided to came to the ER for further evaluation CT scan of the abdominal pelvis indicate complete small bowel obstruction with a transition point and adhesions. Surgical consult was requested by the ER physician the recommendation is patient did not need immediate surgery and recommended follow-up radiological investigations in next 24 hours if the gas pattern is not improved plan is to arrange for surgery. Medical consult was called for admission. Past Medical History Cardiac Medical History: Reports: Hyperlipidema, Hypertension Pulmonary Medical History: Reports: Pneumonia Denies: Asthma, Bronchitis, Chronic Obstructive Pulmonary Disease (COPD), Respiratory Failure, Sleep Apnea, Tuberculosis Neurological Medical History: Endocrine Medical History: Denies: Diabetes Mellitus Type 1, Diabetes Mellitus Type 2 Renal/ Medical History: Denies: End Stage Renal Disease Malignancy Medical History: Denies: Breast Cancer, Cervical Cancer, Leukemia, Lung Cancer, Ovarian Cancer GI Medical History: Reports: Gastroesophageal Reflux Disease, Hiatal Hernia Denies: Crohn's Disease Musculoskeltal Medical History: Reports: Arthritis Denies: Fibromyalgia Psychiatric Medical History: Reports: Depression, Post Traumatic Stress Disorder Denies: Bipolar Disorder, Dementia Hematology: Denies: Anemia, Hemophilia, Sickle Cell Disease Infectious Medical History: Denies: HIV Past Surgical History Past Surgical History: Reports: Adenoidectomy, Appendectomy, Cholecystectomy, Hysterectomy, Orthopedic Surgery - carpal tunnel, Other - Sigmoid colectomy, rectopexy Dr. Fowler 2013; abdominal wall hernia surg Denies: Amputation, Section, Colostomy, Coronary Artery Bypass Graft, Gastric Bypass Surgery, Herniorrhaphy, Mastectomy, Pacemaker, Tonsillectomy, Tubal Ligation Social History Lives with: Family Smoking Status: Never Smoker Electronic Cigarette use?: No Frequency of Alcohol Use: None Hx Recreational Drug Use: No Drugs: None Hx Prescription Drug Abuse: No - Advance Directive Resuscitation Status: Full Code Family History Family History: Reviewed & Not Pertinent, CAD, CVA, Malignancy Parental Family History Reviewed: Yes - Family history of heart disease present. Children Family History Reviewed: Yes Sibling(s) Family History Reviewed.: Yes Medication/Allergy Home Medications: Amitriptyline HCl [Elavil 10 mg Tablet] 20 mg PO QHS 07/01/18 Aspirin [Ecotrin] 81 mg PO DAILY 07/01/18 Eszopiclone [Lunesta] 3 mg PO HSP PRN 07/01/18 Hydrochlorothiazide [Hydrodiuril 12.5 mg Tablet] 12.5 mg PO DAILY 07/01/18 Meclizine HCl [Antivert 12.5 mg Tablet] 12.5 mg PO BIDP PRN 07/01/18 Nitroglycerin [Nitrostat 0.4 mg (1/150 Gr) Tabs 25/Bottle] 1 tab SL Q5MP PRN 07/01/18 Raloxifene HCl [Evista 60 mg Tablet] 60 mg PO ACBRKFST 07/01/18 Simvastatin [Zocor 80 mg Tablet] 80 mg PO QHS 07/01/18 Tramadol HCl [Ultram 50 mg Tablet] 50 mg PO Q4HP PRN 7 Days #12 tab 06/23/19 Baclofen [Baclofen 10 mg Tablet] 10 mg PO Q8HP PRN 07/09/19 Celecoxib 100 mg PO WBRKFST 07/09/19 Diclofenac Sodium 2 gm TOP QIDP PRN 07/09/19 Duloxetine HCl 60 mg PO QHS 07/09/19 Linaclotide [Linzess] 72 mcg PO Q12 07/09/19 Mirtazapine [Remeron 15 mg Tablet] 15 mg PO QHS 07/09/19 Ondansetron HCl 4 mg PO Q8HP PRN 07/09/19 Metoclopramide HCl 5 mg PO ACHS 14 Days #56 tablet 07/10/19 Pantoprazole Sodium [Protonix [address] Tablet] 40 mg PO BID 14 Days #28 tablet.dr 07/10/19 Sucralfate [Carafate Susp 1 Gm/10 Ml Udcup] 1 gm PO ACHS 14 Days #56 udc 07/10/19 Allergies/Adverse Reactions: Iodinated Contrast Media [Iodinated Contrast- Oral and IV Dye] Allergy (Intermediate, Verified 10/26/18 23:56) IVP dye Allergy (Intermediate, Uncoded 08/26/18 08:55) rash Review of Systems Constitutional: ABSENT: fatigue, fever(s), weakness Eyes: ABSENT: visual disturbances Ears: ABSENT: hearing changes Nose, Mouth, and Throat: PRESENT: other - NG tube in place.. ABSENT: sore throat Cardiovascular: ABSENT: dyspnea on exertion, palpitations Respiratory: ABSENT: hemoptysis Gastrointestinal: PRESENT: abdominal pain, nausea, vomiting, other - Coffee colored material seen in the NG tube container. Psychiatric: ABSENT: anxiety, depression, homidical ideation, suicidal ideation Endocrine: ABSENT: cold intolerance, heat intolerance, polydipsia, polyuria Physical Exam Vital Signs: Temp Pulse Resp BP Pulse Ox 98.2 F 88 18 132/70 H 94 07/15/19 08:53 07/15/19 08:43 07/15/19 17:00 07/15/19 17:00 07/15/19 17:00 Intake & Output 07/14/19 07/15/19 07/16/19 06:59 06:59 06:59 Intake Total 250 Balance 250 Weight 64.41 kg General appearance: PRESENT: mild distress, obese Head exam: PRESENT: normocephalic Eye exam: PRESENT: PERRLA Ear exam: PRESENT: normal external ear exam Mouth exam: PRESENT: moist, tongue midline Throat exam: PRESENT: other - NG tube in place. Respiratory exam: PRESENT: decreased breath sounds Cardiovascular exam: PRESENT: RRR. ABSENT: diastolic murmur, rubs, systolic murmur GI/Abdominal exam: PRESENT: hypoactive bowel sounds, rebound, rigid, tenderness Rectal exam: PRESENT: deferred Extremities exam: PRESENT: full ROM. ABSENT: calf tenderness, clubbing, pedal edema Neurological exam: PRESENT: alert, awake, oriented to person, oriented to place, oriented to time, oriented to situation, CN II-XII grossly intact. ABSENT: motor sensory deficit Results Laboratory Results: 07/15/19 07:23 07/15/19 07:24 07/15/19 07/15/19 07/15/19 07:23 07:24 08:35 WBC 17.7 H RBC 4.87 Hgb 15.0 Hct 42.6 MCV 87 MCH 30.8 MCHC 35.2 RDW 13.1 Plt Count 336 Seg Neutrophils % 87.9 H Sodium 133.0 L Potassium 4.0 Chloride 95 L Carbon Dioxide 24 Anion Gap 14 BUN 15 Creatinine 0.78 Est GFR ( Amer) > 60 Glucose 178 H Lactic Acid Calcium 9.9 Total Bilirubin 0.9 AST 40 H Alkaline Phosphatase 76 Total Protein 9.0 H Albumin 5.0 Lipase 82.6 Urine Color YELLOW Urine Appearance SLIGHTLY-CLOUDY Urine pH 5.0 Ur Specific Continental 1.018 Urine Protein 30 H Urine Glucose (UA) NEGATIVE Urine Ketones TRACE H Urine Blood NEGATIVE Urine Nitrite NEGATIVE Ur Leukocyte Esterase MODERATE H Urine WBC (Auto) 13 Urine RBC (Auto) 2 07/15/19 09:45 WBC RBC Hgb Hct MCV MCH MCHC RDW Plt Count Seg Neutrophils % Sodium Potassium Chloride Carbon Dioxide Anion Gap BUN Creatinine Est GFR ( Amer) Glucose Lactic Acid 0.9 Calcium Total Bilirubin AST Alkaline Phosphatase Total Protein Albumin Lipase Urine Color Urine Appearance Urine pH Ur Specific Continental Urine Protein Urine Glucose (UA) Urine Ketones Urine Blood Urine Nitrite Ur Leukocyte Esterase Urine WBC (Auto) Urine RBC (Auto) Impressions: Chest X-Ray 07/15/19 00:00 IMPRESSION: Appropriate nasogastric tube. KUB X-Ray 07/15/19 07:59 IMPRESSION: Dilated small bowel loops in the mid epigastrium worrisome for early or partial small bowel obstruction Abdomen/Pelvis CT 07/15/19 10:37 IMPRESSION: 1. Small-bowel obstruction. This is in the relatively proximal loops at the level of the umbilicus. Possibly related to adhesions along the anterior abdominal wall. Assessment and Plan - Diagnosis (1) Small bowel obstruction due to adhesions Is this a current diagnosis for this admission?: Yes Plan: 07/15/2019-patient is going to be admitted to medical floor with telemetry as an inpatient with diagnosis of small bowel obstruction. T abdomen pelvis indicates a small bowel obstruction complete with a transition point. To continue NG tube with low Gomco suction, GI prophylaxis DVT prophylaxis initiated started on IV morphine 2 mg every 4 hours as needed, Ativan 1 mg IV every 4 as needed for anxiety. Surgical consult was requested. Follow-up KUB will be requested tomorrow. Patient is recently in the hospital test for coronavirus was sent on of this month results are pending. pt will be admitted to fifth floor with droplet precautions. pt will be n.p.o. (2) Chronic pain Qualifiers: Chronic pain type: chronic pain syndrome Qualified Code(s): G89.4 - Chronic pain syndrome Is this a current diagnosis for this admission?: No Plan: 07/15/2019-patient has history of chronic pain syndrome on pain medications at home. Patient has opioid dependency. To start on IV morphine 2 mg every 4 as needed for pain. (3) HTN (hypertension) Is this a current diagnosis for this admission?: No Plan: 07/15/2019-patient has a history of chronic essential hypertension blood pressure is 119/56. Plan is to place her on IV hydralazine 10 mg every 4 PRN for systolic blood pressure more than 160. (4) Obesity (BMI 30-39.9) Is this a current diagnosis for this admission?: No Plan: 07/15/2019-patient's BMI is more than 38 diet exercise weight loss lifestyle modifications will be discussed once the surgical problem is resolved. Dietary consult will be requested. 1
[2019-07-15] MEDS: MORPHINE SULFATE 10 MG/ML INJ IV PRN (18:56)
[2019-07-15] MEDS: NORMAL SALINE 1000 ML 1,000 ML IV PRN ×2 (18:56→22:47)
[2019-07-15] MEDS: ONDANSETRON HCL INJ/PF 4 MG/2 ML SDV IV PRN (18:56)
[2019-07-15 20:09] LABS: URINE AMPHETAMINES SCREEN NEGATIVE; URINE BARBITURATES SCREEN NEGATIVE; URINE BENZODIAZEPINES SCREEN NEGATIVE; URINE COCAINE SCREEN NEGATIVE; URINE MARIJUANA (THC) SCREEN NEGATIVE; URINE METHADONE SCREEN NEGATIVE; URINE PHENCYCLIDINE SCREEN NEGATIVE
[2019-07-15 20:40] LABS: INTERNATIONAL RATION (INR) 1.06; PROTHROMBIN TIME 13.8 SEC (11.4-15.4)
[2019-07-15] MEDS: HEPARIN SOD (PORCINE) 5,000 UNIT/ML 1 ML VIAL SUBCUT SCH (21:07)
[2019-07-15] MEDS: PANTOPRAZOLE SODIUM 40 MG VIAL IV SCH (21:08)
--- NOTE | 2019-07-15 21:17 | EKG REPORT ---
SEVERITY:- DEFECTIVE ECG - INCOMPLETE ANALYSIS DUE TO MISSING DATA IN PRECORDIAL LEAD(S) SINUS TACHYCARDIA PROBABLE INFERIOR INFARCT, AGE INDETERMINATE CONSIDER ANTERIOR INFARCT : Confirmed by: Martir Molina MD 15-Jul-2019 21:16:36
[2019-07-15] MEDS: LORAZEPAM INJ 2 MG/1 ML VIAL IV PRN (22:51)
[2019-07-16] MEDS: MORPHINE SULFATE 10 MG/ML INJ IV PRN ×5 (01:41→23:06)
[2019-07-16] MEDS: ONDANSETRON HCL INJ/PF 4 MG/2 ML SDV IV PRN ×3 (01:41→21:12)
[2019-07-16] MEDS: NORMAL SALINE 1000 ML 1,000 ML IV PRN ×5 (02:56→21:19)
[2019-07-16] MEDS: HEPARIN SOD (PORCINE) 5,000 UNIT/ML 1 ML VIAL SUBCUT SCH ×3 (05:10→21:12)
[2019-07-16 06:35] LABS: ABSOLUTE EOSINOPHILS # (AUTO) 0.1 10^3/uL (0.0-0.6); ABSOLUTE LYMPHOCYTES (AUTO) 1.3 10^3/uL (0.5-4.7); ABSOLUTE MONOCYTES (AUTO) 0.7 10^3/uL (0.1-1.4); ABSOLUTE NEUT (AUTO) 3.9 10^3/uL (1.7-8.2); BASOPHILS % (AUTO) 0.3 % (0-2); EOSINOPHILS % (AUTO) 1.6 % (0-6); HEMATOCRIT 36.8 % (36.0-47.0); HEMOGLOBIN 12.8 g/dL (12.0-15.5); LYMPHOCYTES % (AUTO) 21.1 % (13-45); MEAN CORPUSCULAR HEMOGLOBIN 31.1 pg (27.0-33.4); MEAN CORPUSCULAR HGB CONC 34.8 g/dL (32.0-36.0); MEAN CORPUSCULAR VOLUME 89 fl (80-97); MONOCYTES % (AUTO) 11.4 % (3-13); PLATELET COUNT 217 10^3/uL (150-450); RED BLOOD COUNT 4.12 10^6/uL (3.72-5.28); RED CELL DISTRIBUTION WIDTH 12.9 % (11.5-14.0); SEGMENTED NEUTROPHILS % (AUTO) 65.6 % (42-78); TOTAL CELLS COUNTED % (AUTO) 100 %
[2019-07-16 06:41] LABS: ALBUMIN 3.4 g/dL (3.5-5.0); ALKALINE PHOSPHATASE 55 U/L (38-126); ANION GAP 7 (5-19); ASPARTATE AMINO TRANSFERASE 22 U/L (14-36); BILIRUBIN,TOTAL 0.7 mg/dL (0.2-1.3); BLOOD UREA NITROGEN 15 mg/dL (7-20); CALCIUM 7.5 mg/dL (8.4-10.2); CARBON DIOXIDE 25 mmol/L (22-30); CHLORIDE 103 mmol/L (98-107); CHOLESTEROL 120.44 mg/dL (0-200); GLUCOSE 102 mg/dL (75-110); POTASSIUM 3.9 mmol/L (3.6-5.0); TOTAL PROTEIN 6.1 g/dL (6.3-8.2); TRIGLYCERIDES 97 mg/dL (<150)
[2019-07-16 06:51] LABS: DIRECT LDL 47 mg/dL (<100)
--- NOTE | 2019-07-16 09:03 | RADIOLOGY REPORT (SQ) ---
EXAM DESCRIPTION: KUB/ABDOMEN (SINGLE VIEW) IMAGES COMPLETED DATE/TIME: 07/16/2019 8:55 am REASON FOR STUDY: interval change COMPARISON: 07/15/2019 NUMBER OF VIEWS: One view. TECHNIQUE: Supine radiographic image of the abdomen acquired. LIMITATIONS: None. FINDINGS: BOWEL GAS PATTERN: Minimal persistent dilated gas-filled epigastric small-bowel loop. Sli ghtly improved. Moderate stool in the colon, which is nondilated. CALCIFICATIONS: No suspicious calcifications. SOFT TISSUES: No gross mass or suggestion of organomegaly. HARDWARE: Nasogastric tube down. BONES: No acute fracture. No worrisome bone lesions. OTHER: No other significant finding. IMPRESSION: 1. Minimal persistent focal ileus suggested. Stool retention. TECHNICAL DOCUMENTATION: JOB ID: [id number] 2010 [employer]- All Rights Reserved Reading location - IP/workstation name: [email or web address]
--- NOTE | 2019-07-16 09:34 | PDOC PROGRESS REPORT ---
Subjective Progress Note for:: 07/16/19 Subjective:: 64 year old female with history of hypertension, hypercholesteremia, osteoarthritis, degenerative disc disease, gallbladder removal, appendicectomy, hysterectomy, chronic constipation came to the emergency room with complaints of abdominal pain since yesterday. Severe abdominal pain associated with nausea and vomitings did not have any bowel movement for the last 2 days. Decided to came to the ER for further evaluation CT scan of the abdominal pelvis indicate c omplete small bowel obstruction with a transition point and adhesions. Surgical consult was requested by the ER physician the recommendation is patient did not need immediate surgery and recommended follow-up radiological investigations in next 24 hours if the gas pattern is not improved plan is to arrange for surgery. Medical consult was called for admission. 07/16/2019 no acute events in the last 24 hours. Patient still have NG tube which is draining. Follow-up KUB was done indicating resolving ileus and constipation. Reason For Visit: SMALL BOWEL OBSTRUCTION DUE TO ADHESIONS Physical Exam Vital Signs: Temp Pulse Resp BP Pulse Ox 97.9 F 73 16 132/54 H 95 07/16/19 07:18 07/16/19 07:18 07/16/19 07:18 07/16/19 07:18 07/16/19 07:18 Intake & Output 07/15/19 07/16/19 07/17/19 06:59 06:59 06:59 Intake Total 3213 Output Total 160 Balance 3053 Weight 64.41 kg 66 kg General appearance: PRESENT: no acute distress Head exam: PRESENT: atraumatic Eye exam: PRESENT: PERRLA Mouth exam: PRESENT: moist, tongue midline Teeth exam: PRESENT: poor dentation Neck exam: PRESENT: other - NG tube in place Respiratory exam: PRESENT: decreased breath sounds Cardiovascular exam: PRESENT: RRR. ABSENT: diastolic murmur, rubs, systolic murmur GI/Abdominal exam: PRESENT: normal bowel sounds, soft. ABSENT: distended, guarding, mass, organolmegaly, rebound, tenderness Rectal exam: PRESENT: deferred Extremities exam: PRESENT: full ROM. ABSENT: calf tenderness, clubbing, pedal edema Neurological exam: PRESENT: alert, awake, oriented to person, oriented to place, oriented to time, oriented to situation, CN II-XII grossly intact. ABSENT: motor sensory deficit Psychiatric exam: PRESENT: appropriate affect, normal mood. ABSENT: homicidal ideation, suicidal ideation Results Laboratory Results: 07/16/19 05:47 07/16/19 05:47 07/15/19 07/16/19 07/16/19 09:45 05:47 05:47 WBC 6.0 RBC 4.12 Hgb 12.8 D Hct 36.8 MCV 89 MCH 31.1 MCHC 34.8 RDW 12.9 Plt Count 217 Seg Neutrophils % 65.6 Sodium 135.2 L Potassium 3.9 Chloride 103 Carbon Dioxide 25 Anion Gap 7 BUN 15 Creatinine 0.68 Est GFR ( Amer) > 60 Glucose 102 Lactic Acid 0.9 Calcium 7.5 L Magnesium 1.9 Total Bilirubin 0.7 AST 22 Alkaline Phosphatase 55 Total Protein 6.1 L Albumin 3.4 L Triglycerides 97 Cholesterol 120.44 LDL Cholesterol Direct 47 VLDL Cholesterol 19.0 HDL Cholesterol 58 Impressions: Chest X-Ray 07/15/19 00:00 IMPRESSION: Appropriate nasogastric tube. Abdomen/Pelvis CT 07/15/19 10:37 IMPRESSION: 1. Small-bowel obstruction. This is in the relatively proximal loops at the level of the umbilicus. Possibly related to adhesions along the anterior abdominal wall. KUB X-Ray 07/16/19 07:00 IMPRESSION: 1. Minimal persistent focal ileus suggested. Stool retention. Assessment and Plan - Diagnosis (1) Small bowel obstruction due to adhesions Is this a current diagnosis for this admission?: Yes Plan: 07/15/2019-patient is going to be admitted to medical floor with telemetry as an inpatient with diagnosis of small bowel obstruction. T abdomen pelvis indicates a small bowel obstruction complete with a transition point. To continue NG tube with low Gomco suction, GI prophylaxis DVT prophylaxis initiated started on IV m orphine 2 mg every 4 hours as needed, Ativan 1 mg IV every 4 as needed for anxiety. Surgical consult was requested. Follow-up KUB will be requested tomorrow. Patient is recently in the hospital test for coronavirus was sent on of this month results are pending. pt will be admitted to fifth floor with droplet precautions. pt will be n.p.o. 07/16/2019-patient still have the NG tube surgical follow-up was done today. Waiting for the further recommendations. In the meantime we will keep her n.p.o. with NG tube. (2) Chronic pain Qualifiers: Chronic pain type: chronic pain syndrome Qualified Code(s): G89.4 - Chronic pain syndrome Is this a current diagnosis for this admission?: No Plan: 07/15/2019-patient has history of chronic pain syndrome on pain medications at home. Patient has opioid dependency. To start on IV morphine 2 mg every 4 as needed for pain. (3) HTN (hypertension) Is this a current diagnosis for this admission?: No Plan: 07/15/2019-patient has a history of chronic essential hypertension blood pressure is 119/56. Plan is to place her on IV hydralazine 10 mg every 4 PRN for systolic blood pressure more than 160. 07/16/2019 blood pressure today is 136/57. Stable. Plan is to continue the present management at this time. (4) Obesity (BMI 30-39.9) Is this a current diagnosis for this admission?: No
--- NOTE | 2019-07-16 09:38 | PDOC PROGRESS REPORT ---
Subjective Progress Note for:: 07/16/19 Reason For Visit: SMALL BOWEL OBSTRUCTION DUE TO ADHESIONS Patient states she is no better. Minimal drainage out of the NG tube. No flatus or stool. Physical Exam Vital Signs: Temp Pulse Resp BP Pulse Ox 97.9 F 73 16 132/54 H 95 07/16/19 07:18 07/16/19 07:18 07/16/19 07:18 07/16/19 07:18 07/16/19 07:18 Intake & Output 07/15/19 07/16/19 07/17/19 06:59 06:59 06:59 Intake Total 3213 Output Total 160 Balance 3053 Weight 64.41 kg 66 kg General appearance: PRESENT: no acute distress GI/Abdominal exam: PRESENT: other - Persisting 14 Moroccan nasogastric tube in position. Approximately 200 cc of bilious material in the receptacle. The abdomen is distended. There is still nonlocalized tenderness. Results Laboratory Results: 07/16/19 05:47 07/16/19 05:47 07/15/19 07/16/19 07/16/19 09:45 05:47 05:47 WBC 6.0 RBC 4.12 Hgb 12.8 D Hct 36.8 MCV 89 MCH 31.1 MCHC 34.8 RDW 12.9 Plt Count 217 Seg Neutrophils % 65.6 Sodium 135.2 L Potassium 3.9 Chloride 103 Carbon Dioxide 25 Anion Gap 7 BUN 15 Creatinine 0.68 Est GFR ( Amer) > 60 Glucose 102 Lactic Acid 0.9 Calcium 7.5 L Magnesium 1.9 Total Bilirubin 0.7 AST 22 Alkaline Phosphatase 55 Total Protein 6.1 L Albumin 3.4 L Triglycerides 97 Cholesterol 120.44 LDL Cholesterol Direct 47 VLDL Cholesterol 19.0 HDL Cholesterol 58 Impressions: Chest X-Ray 07/15/19 00:00 IMPRESSION: Appropriate nasogastric tube. Abdomen/Pelvis CT 07/15/19 10:37 IMPRESSION: 1. Small-bowel obstruction. This is in the relatively proximal loops at the level of the umbilicus. Possibly related to adhesions along the anterior abdominal wall. KUB X-Ray 07/16/19 07:00 IMPRESSION: 1. Minimal persistent focal ileus suggested. Stool retention. Assessment & Plan - Diagnosis (1) Partial small bowel obstruction Is this a current diagnosis for this admission?: Yes Plan: Impression: Slight improvement based on decreased abdominal tenderness, normalization of white count, and slight improvement on abdominal film demonstrating less small bowel gas, and a lot of stool in the colon. Patient does not require exploratory laparotomy today. Commendations: 1. Up and out of bed 2. We will give enema fleets from below 3. I suggested the patient have the nasogastric tube replaced with a larger one but she refused. 4. I discussed the above with nursing staff. (2) Anxiety disorder Is this a current diagnosis for this admission?: Yes (3) Chronic pain Is this a current diagnosis for this admission?: Yes (4) Depression Qualifiers: Depression Type: unspecified Qualified Code(s): F32.9 - Major depressive disorder, single episode, unspecified Is this a current diagnosis for this admission?: Yes (5) History of open sigmoidectomy Is this a current diagnosis for this admission?: Yes (6) Hypertension Qualifiers: Hypertension type: essential hypertension Qualified Code(s): I10 - Essential (primary) hypertension Is this a current diagnosis for this admission?: Yes
[2019-07-16] MEDS: PANTOPRAZOLE SODIUM 40 MG VIAL IV SCH ×2 (09:50→21:12)
[2019-07-16] MEDS ORDERED: NA PHOS,M-B/NA PHOS,DI-BA (ADULT) 133 ML ENEMA PR ONE (10:00)
[2019-07-16] MEDS: LORAZEPAM INJ 2 MG/1 ML VIAL IV PRN (11:16)
--- NOTE | 2019-07-16 13:56 | EKG REPORT ---
SEVERITY:- BORDERLINE ECG - SINUS RHYTHM LOW VOLTAGE THROUGHOUT BORDERLINE T ABNORMALITIES, DIFFUSE LEADS : Confirmed by: Martir Molina MD 16-Jul-2019 13:55:25
[2019-07-17] MEDS: NORMAL SALINE 1000 ML 1,000 ML IV PRN ×3 (02:10→10:02)
[2019-07-17] MEDS: HEPARIN SOD (PORCINE) 5,000 UNIT/ML 1 ML VIAL SUBCUT SCH ×3 (05:29→21:33)
[2019-07-17] MEDS: MORPHINE SULFATE 10 MG/ML INJ IV PRN ×3 (05:29→22:26)
[2019-07-17] MEDS: ONDANSETRON HCL INJ/PF 4 MG/2 ML SDV IV PRN ×3 (05:30→21:34)
[2019-07-17] MEDS: PANTOPRAZOLE SODIUM 40 MG VIAL IV SCH (09:54)
--- NOTE | 2019-07-17 10:00 | PDOC PROGRESS REPORT ---
Subjective Progress Note for:: 07/17/19 Subjective:: 64 year old female with history of hypertension, hypercholesteremia, osteoarthritis, degenerative disc disease, gallbladder removal, appendicectomy, hysterectomy, chronic constipation came to the emergency room with complaints of abdominal pain since yesterday. Severe abdominal pain associated with nausea and vomitings did not have any bowel movement for the last 2 days. Decided to came to the ER for further evaluation CT scan of the abdominal pelvis indicate c omplete small bowel obstruction with a transition point and adhesions. Surgical consult was requested by the ER physician the recommendation is patient did not need immediate surgery and recommended follow-up radiological investigations in next 24 hours if the gas pattern is not improved plan is to arrange for surgery. Medical consult was called for admission. 07/16/2019 no acute events in the last 24 hours. Patient still have NG tube which is draining. Follow-up KUB was done indicating resolving ileus and constipation. 07/17/2019-no acute events in the last 24 hours. ngTube is removed by Dr. Orourke plan is to start on a clear liquids and restart home medications. Patient is still complaining of soreness in the belly. Reason For Visit: SMALL BOWEL OBSTRUCTION DUE TO ADHESIONS Physical Exam Vital Signs: Temp Pulse Resp BP Pulse Ox 98.6 F 76 15 98/52 L 98 07/17/19 07:32 07/17/19 07:32 07/17/19 07:32 07/17/19 07:32 07/17/19 07:32 Intake & Output 07/16/19 07/17/19 07/18/19 06:59 06:59 06:59 Intake Total 3213 4600 Output Total 160 2900 Balance 3053 1700 Weight 66 kg 69.2 kg General appearance: PRESENT: no acute distress, obese Head exam: PRESENT: atraumatic Eye exam: PRESENT: PERRLA Mouth exam: PRESENT: moist, tongue midline Teeth exam: PRESENT: poor dentation Neck exam: ABSENT: carotid bruit, JVD, lymphadenopathy, thyromegaly Respiratory exam: PRESENT: decreased breath sounds Cardiovascular exam: PRESENT: RRR. ABSENT: diastolic murmur, rubs, systolic murmur Pulses: PRESENT: normal dorsalis pedis pul GI/Abdominal exam: PRESENT: normal bowel sounds, soft. ABSENT: distended, guarding, mass, organolmegaly, rebound, tenderness Rectal exam: PRESENT: deferred Extremities exam: PRESENT: full ROM. ABSENT: calf tenderness, clubbing, pedal edema Neurological exam: PRESENT: alert, awake, oriented to person, oriented to place, oriented to time, oriented to situation, CN II-XII grossly intact. ABSENT: motor sensory deficit Psychiatric exam: PRESENT: appropriate affect, normal mood. ABSENT: homicidal ideation, suicidal ideation Results Laboratory Results: 07/16/19 05:47 07/16/19 05:47 07/17/19 06:05 Magnesium 1.7 Impressions: Chest X-Ray 07/15/19 00:00 IMPRESSION: Appropriate nasogastric tube. Abdomen/Pelvis CT 07/15/19 10:37 IMPRESSION: 1. Small-bowel obstruction. This is in the relatively proximal loops at the level of the umbilicus. Possibly related to adhesions along the anterior abdominal wall. Assessment and Plan - Diagnosis (1) Small bowel obstruction due to adhesions Is this a current diagnosis for this admission?: Yes Plan: 07/15/2019-patient is going to be admitted to medical floor with telemetry as an inpatient with diagnosis of small bowel obstruction. T abdomen pelvis indicates a small bowel obstruction complete with a transition point. To continue NG tube with low Gomco suction, GI prophylaxis DVT prophylaxis initiated started on IV morphine 2 mg every 4 hours as needed, Ativan 1 mg IV every 4 as needed for anxiety. Surgical consult was requested. Follow-up KUB will be requested tomorrow. Patient is recently in the hospital test for coronavirus was sent on of this month results are pending. pt will be admitted to fifth floor with droplet precautions. pt will be n.p.o. 07/16/2019-patient still have the NG tube surgical follow-up was done today. Waiting for the further recommendations. In the meantime we will keep her n.p.o. with NG tube. 07/17/2019-patient admitted with small bowel obstruction follow-up KUB indicates no evidence of obstruction as per Dr. Orourke. NG tube is removed today. To start on clear liquids and advance diet as tolerated. If everything is okay patient may be discharged tomorrow. (2) Chronic pain Qualifiers: Chronic pain type: chronic pain syndrome Qualified Code(s): G89.4 - Chronic pain syndrome Is this a current diagnosis for this admission?: No Plan: 07/15/2019-patient has history of chronic pain syndrome on pain medications at home. Patient has opioid dependency. To start on IV morphine 2 mg every 4 as needed for pain. (3) HTN (hypertension) Is this a current diagnosis for this admission?: No Plan: 07/15/2019-patient has a history of chronic essential hypertension blood pressure is 119/56. Plan is to place her on IV hydralazine 10 mg every 4 PRN for systolic blood pressure more than 160. 07/16/2019 blood pressure today is 136/57. Stable. Plan is to continue the present management at this time. 07/17/2019-blood pressure today is 135/60. Stable. (4) Obesity (BMI 30-39.9) Is this a current diagnosis for this admission?: No
[2019-07-17] MEDS ORDERED: BACLOFEN 10 MG TABLET PO PRN (10:01)
[2019-07-17] MEDS ORDERED: NITROGLYCERIN 0.4 MG/TAB 25 TAB/BOTTLE SL PRN (10:01)
[2019-07-17] MEDS ORDERED: MECLIZINE HCL 12.5 MG TABLET PO PRN (10:01)
[2019-07-17] MEDS ORDERED: TRAMADOL HCL 50 MG TABLET PO PRN (10:01)
[2019-07-17] MEDS ORDERED: ZOLPIDEM TARTRATE 5 MG TABLET PO PRN (10:23)
--- NOTE | 2019-07-17 10:54 | RADIOLOGY REPORT (SQ) ---
EXAM DESCRIPTION: KUB/ABDOMEN (SINGLE VIEW) IMAGES COMPLETED DATE/TIME: 07/17/2019 8:19 am REASON FOR STUDY: small bowel ob COMPARISON: Previous day. NUMBER OF VIEWS: One view. TECHNIQUE: Supine radiographic image of the abdomen acquired. LIMITATIONS: None. FINDINGS: BOWEL GAS PATTERN: There has been evacuation of fecal material in the descending colon. N ormal fecal load in the hepatic flexure. No dilated loops. CALCIFICATIONS: No suspicious calcifications. SOFT TISSUES: No gross mass or suggestion of organomegaly. HARDWARE: None in the abdomen. BONES: No acute fracture. No worrisome bone lesions. OTHER: Unchanged position of nasogastric tube. IMPRESSION: Resolving fecal retention. TECHNICAL DOCUMENTATION: JOB ID: [id number] 2010 [employer]- All Rights Reserved Reading location - IP/workstation name: [email or web address]
[2019-07-17] MEDS ORDERED: (PENDING PHARMACY ID) (Sucralfate [Carafate Susp 1 Gm/10 Ml Udcup] 1 GM) PO SCH (11:00)
--- NOTE | 2019-07-17 11:32 | PDOC PROGRESS REPORT ---
Subjective Progress Note for:: 07/17/19 Reason For Visit: SMALL BOWEL OBSTRUCTION DUE TO ADHESIONS Physical Exam Vital Signs: Temp Pulse Resp BP Pulse Ox 98.6 F 76 15 98/52 L 98 07/17/19 07:32 07/17/19 07:32 07/17/19 07:32 07/17/19 07:32 07/17/19 07:32 Intake & Output 07/16/19 07/17/19 07/18/19 06:59 06:59 06:59 Intake Total 3213 4600 1000 Output Total 160 2900 Balance 3053 1700 1000 Weight 66 kg 69.2 kg General appearance: PRESENT: no acute distress, cooperative Head exam: PRESENT: atraumatic, normocephalic Eye exam: PRESENT: EOMI, PERRLA Mouth exam: PRESENT: moist, neck supple Neck exam: ABSENT: meningismus, tenderness, thyromegaly, tracheal deviation Respiratory exam: PRESENT: unlabored. ABSENT: chest wall tenderness, tachypnea Cardiovascular exam: ABSENT: tachycardia Vascular exam: PRESENT: normal capillary refill GI/Abdominal exam: PRESENT: soft, tenderness - mild RLQ. ABSENT: distended, firm, guarding Rectal exam: PRESENT: deferred Extremities exam: ABSENT: clubbing Musculoskeletal exam: ABSENT: deformity Neurological exam: PRESENT: alert, awake, oriented to person, oriented to place, oriented to time, oriented to situation, CN II-XII grossly intact Psychiatric exam: ABSENT: agitated, anxious, depressed Focused psych exam: ABSENT: delusional Skin exam: ABSENT: cyanosis, erythema, jaundice Results Laboratory Results: 07/16/19 05:47 07/16/19 05:47 07/17/19 06:05 Magnesium 1.7 07/15/19 19:22 Clean Catch Midstream Urine Culture - Final Mixed Urogenital Paulette Impressions: Chest X-Ray 07/15/19 00:00 IMPRESSION: Appropriate nasogastric tube. Abdomen/Pelvis CT 07/15/19 10:37 IMPRESSION: 1. Small-bowel obstruction. This is in the relatively proximal loops at the level of the umbilicus. Possibly related to adhesions along the anterior abdominal wall. KUB X-Ray 07/17/19 00:00 IMPRESSION: Resolving fecal retention. Assessment & Plan - Diagnosis (1) Constipation Qualifiers: Constipation type: other constipation type Qualified Code(s): K59.09 - Other constipation Is this a current diagnosis for this admission?: Yes - Plan Summary Plan Summary: This is a 64-year-old female admitted with abdominal pain. She has a CT scan suggestive of a small bowel obstruction. An NG tube was placed, however minimal NG output was noted. The patient also has a large stool burden within the colon. It is unclear whether her symptoms are related to chronic constipation or small bowel obstruction. Repeat x-rays today show no significant gas in the small intestine. The patient has had multiple bowel movements overnight with the instillation of enemas. Plan to remove NG tube and start clear liquid diet. Repeat x-rays tomorrow. If patient continues to have symptoms, a small bowel follow-through may be necessary to visualize the small bowel, and document transit time. Continue to treat the patient symptomatically at this time. We will add MiraLAX to her medication regimen. Surgery will follow with you.
[2019-07-17] MEDS: HYDROCHLOROTHIAZIDE 12.5 MG TABLET PO SCH (12:55)
[2019-07-17] MEDS: SUCRALFATE 1 GM TABLET PO SCH ×3 (12:55→21:32)
[2019-07-17] MEDS: PANTOPRAZOLE SODIUM 40 MG TABLET.DR PO SCH (17:28)
[2019-07-17] MEDS: POLYETHYLENE GLYCOL 3350 POWDER 17 GM/1 PACKET PO SCH (17:28)
[2019-07-17] MEDS: SIMVASTATIN 40 MG TABLET PO SCH (21:32)
[2019-07-17] MEDS: MIRTAZAPINE 15 MG TABLET PO SCH (21:33)
[2019-07-17] MEDS: DULOXETINE HCL 30 MG CAPSULE.DR PO SCH (21:33)
[2019-07-17] MEDS ORDERED: (PENDING PHARMACY ID) (Duloxetine Hcl [Duloxetine Hcl] 60 MG) PO SCH (22:00)
[2019-07-17] MEDS ORDERED: (PENDING PHARMACY ID) (Linaclotide [Linzess] 72 MCG) PO SCH (22:00)
[2019-07-17] MEDS ORDERED: (PENDING PHARMACY ID) (Simvastatin [Zocor 80 Mg Tablet] 80 MG) PO SCH (22:00)
[2019-07-17] MEDS: AMITRIPTYLINE HCL 10 MG TABLET PO SCH (22:35)
[2019-07-18 05:11] LABS: ABSOLUTE EOSINOPHILS # (AUTO) 0.2 10^3/uL (0.0-0.6); ABSOLUTE LYMPHOCYTES (AUTO) 1.2 10^3/uL (0.5-4.7); ABSOLUTE MONOCYTES (AUTO) 0.5 10^3/uL (0.1-1.4); ABSOLUTE NEUT (AUTO) 3.9 10^3/uL (1.7-8.2); BASOPHILS % (AUTO) 0.4 % (0-2); EOSINOPHILS % (AUTO) 3.1 % (0-6); HEMOGLOBIN 12.2 g/dL (12.0-15.5); LYMPHOCYTES % (AUTO) 20.1 % (13-45); MEAN CORPUSCULAR HEMOGLOBIN 30.4 pg (27.0-33.4); MEAN CORPUSCULAR HGB CONC 34.9 g/dL (32.0-36.0); MEAN CORPUSCULAR VOLUME 87 fl (80-97); PLATELET COUNT 224 10^3/uL (150-450); RED BLOOD COUNT 4.01 10^6/uL (3.72-5.28); RED CELL DISTRIBUTION WIDTH 12.9 % (11.5-14.0); SEGMENTED NEUTROPHILS % (AUTO) 68.4 % (42-78); TOTAL CELLS COUNTED % (AUTO) 100 %; WHITE BLOOD COUNT 5.7 10^3/uL (4.0-10.5)
[2019-07-18 05:33] LABS: ALBUMIN 3.6 g/dL (3.5-5.0); ALKALINE PHOSPHATASE 66 U/L (38-126); ANION GAP 9 (5-19); ASPARTATE AMINO TRANSFERASE 23 U/L (14-36); BILIRUBIN,TOTAL 0.5 mg/dL (0.2-1.3); CALCIUM 7.6 mg/dL (8.4-10.2); CARBON DIOXIDE 25 mmol/L (22-30); CHLORIDE 102 mmol/L (98-107); GLUCOSE 85 mg/dL (75-110); POTASSIUM 3.1 mmol/L (3.6-5.0); TOTAL PROTEIN 6.5 g/dL (6.3-8.2)
[2019-07-18 05:35] LABS: BLOOD UREA NITROGEN < 2 mg/dL (7-20)
[2019-07-18] MEDS: PANTOPRAZOLE SODIUM 40 MG TABLET.DR PO SCH ×2 (05:49→16:57)
[2019-07-18] MEDS: HEPARIN SOD (PORCINE) 5,000 UNIT/ML 1 ML VIAL SUBCUT SCH ×3 (05:49→22:49)
[2019-07-18] MEDS: ONDANSETRON HCL INJ/PF 4 MG/2 ML SDV IV PRN ×2 (05:50→14:01)
--- NOTE | 2019-07-18 07:54 | PDOC PROGRESS REPORT ---
Subjective Progress Note for:: 07/18/19 Subjective:: passed some diarrhea yesterday. Reason For Visit: SMALL BOWEL OBSTRUCTION DUE TO ADHESIONS Physical Exam Vital Signs: Temp Pulse Resp BP Pulse Ox 98.8 F 62 18 119/57 L 96 07/17/19 19:33 07/18/19 02:00 07/17/19 19:33 07/17/19 19:33 07/17/19 19:33 Intake & Output 07/17/19 07/18/19 07/19/19 06:59 06:59 06:59 Intake Total 4600 1680 Output Total 2900 Balance 1700 1680 Weight 69.2 kg 66.7 kg General appearance: PRESENT: no acute distress Head exam: PRESENT: normocephalic Eye exam: PRESENT: EOMI Mouth exam: PRESENT: moist Neck exam: PRESENT: full ROM Respiratory exam: PRESENT: clear to auscultation alcie Cardiovascular exam: PRESENT: RRR Pulses: PRESENT: normal femoral pulses, normal dorsalis pedis pul Vascular exam: PRESENT: normal capillary refill Breast: PRESENT: Normal GI/Abdominal exam: PRESENT: soft, tenderness - mild tenderness in ruq Rectal exam: PRESENT: deferred Extremities exam: PRESENT: full ROM Musculoskeletal exam: PRESENT: full ROM Neurological exam: PRESENT: alert, awake, oriented to person, oriented to place Skin exam: PRESENT: dry Results Laboratory Results: 07/18/19 04:14 07/18/19 04:14 07/18/19 07/18/19 04:14 04:14 WBC 5.7 RBC 4.01 Hgb 12.2 Hct 35.0 L MCV 87 MCH 30.4 MCHC 34.9 RDW 12.9 Plt Count 224 Seg Neutrophils % 68.4 Sodium 136.0 L Potassium 3.1 L Chloride 102 Carbon Dioxide 25 Anion Gap 9 BUN < 2 L Creatinine 0.54 Est GFR ( Amer) > 60 Glucose 85 Calcium 7.6 L Magnesium 1.9 Total Bilirubin 0.5 AST 23 Alkaline Phosphatase 66 Total Protein 6.5 Albumin 3.6 07/15/19 19:22 Clean Catch Midstream Urine Culture - Final Mixed Urogenital Paulette Impressions: Chest X-Ray 07/15/19 00:00 IMPRESSION: Appropriate nasogastric tube. Abdomen/Pelvis CT 07/15/19 10:37 IMPRESSION: 1. Small-bowel obstruction. This is in the relatively proximal loops at the level of the umbilicus. Possibly related to adhesions along the anterior abdominal wall. KUB X-Ray 07/17/19 00:00 IMPRESSION: Resolving fecal retention. Assessment & Plan - Plan Summary Plan Summary: small bowel obstruction hypokalemia this am k=3.1 passed small amts of diarrhea this am plan replace lytes small bowel series
[2019-07-18] MEDS: RALOXIFENE HCL 60 MG TABLET PO SCH (08:26)
[2019-07-18] MEDS: SUCRALFATE 1 GM TABLET PO SCH ×4 (08:26→22:48)
[2019-07-18] MEDS: POTASSI CL 20 MEQ/50 ML RIDER 20 MEQ/50 ML RTUPB IV SCH ×3 (08:34→12:34)
[2019-07-18] MEDS: MORPHINE SULFATE 10 MG/ML INJ IV PRN (08:45)
--- NOTE | 2019-07-18 09:05 | RADIOLOGY REPORT (SQ) ---
EXAM DESCRIPTION: KUB/ABDOMEN (SINGLE VIEW) IMAGES COMPLETED DATE/TIME: 07/18/2019 8:29 am REASON FOR STUDY: sbo COMPARISON: 07/17/2019 NUMBER OF VIEWS: One view. TECHNIQUE: Supine radiographic image of the abdomen acquired. LIMITATIONS: None. FINDINGS: BOWEL GAS PATTERN: Normal bowel gas pattern. No dilated loops. CALCIFICATIONS: No suspicious calcifications. SOFT TISSUES: No gross mass or suggestion of organomegaly. HARDWARE: None in the abdomen. BONES: No acute fracture. No worrisome bone lesions. OTHER: No other significant finding. IMPRESSION: NO RADIOGRAPHIC EVIDENCE FOR ACUTE ABDOMINAL DISEASE. TECHNICAL DOCUMENTATION: JOB ID: [id number] 2010 [employer]- All Rights Reserved Reading location - IP/workstation name: [email or web address]
[2019-07-18] MEDS: POLYETHYLENE GLYCOL 3350 POWDER 17 GM/1 PACKET PO SCH ×2 (09:08→17:04)
[2019-07-18] MEDS: HYDROCHLOROTHIAZIDE 12.5 MG TABLET PO SCH (09:08)
[2019-07-18] MEDS: ASPIRIN 81 MG TABLET, ENT COATED PO SCH (09:08)
--- NOTE | 2019-07-18 13:21 | RADIOLOGY REPORT (SQ) ---
EXAM DESCRIPTION: SMALL BOWEL SERIES IMAGES COMPLETED DATE/TIME: 07/18/2019 10:55 am REASON FOR STUDY: sbo, please use gastrografin. COMPARISON: None. FLUOROSCOPY TIME: NONE. Procedure was performed at bedside No fluoroscopic spot images saved to PACS. LIMITATIONS: None. PROCEDURE: Initial job superintendent image of abdomen acquired, followed by administration of oral contrast. Se rial radiographic images acquired. All images stored on PACS. FINDINGS: MACHINE PRECISION ETCHER KUB: Non-obstructive bowel pattern. No abnormal calcifications. Soft tissue planes normal. STOMACH: No significant reflux. Normal distention without abnormality. DUODENUM: Normal mucosal pattern with adequate distention. No displacement or obstruction. JEJUNUM: Normal mucosal pattern. No dilatation, segmentation, strictures or masses. ILEUM: Normal mucosal pattern. No dilatation, segmentation, strictures or masses. TERMINAL ILEUM AND ILEO-CECAL VALVE: Normal mucosal pattern without "cobble-stoning" or stricture. N ormal compression. PROXIMAL COLON: There is extension of contrast to the distal descending colon on the 2 hour delayed i mage. No abnormality. OTHER: Normal transit of contrast through small bowel with contrast imaged within the ascending colon on the 1 hour image. IMPRESSION: NORMAL SMALL BOWEL EXAM. NO EVIDENCE OF SMALL-BOWEL OBSTRUCTION. COMMENT: Quality ID [id number]: Final reports for procedures using fluoroscopy that document radiation exp osure indices, or exposure time and number of fluorographic images (if radiation exposure indices are not available) TECHNICAL DOCUMENTATION: JOB ID: [id number] 2010 [employer]- All Rights Reserved Reading location - IP/workstation name: [email or web address] [id number]
--- NOTE | 2019-07-18 14:11 | PDOC PROGRESS REPORT ---
Subjective Progress Note for:: 07/18/19 Reason For Visit: SMALL BOWEL OBSTRUCTION DUE TO ADHESIONS 07/18/2019 Patient admitted to the hospital 07/15/2019 for abdominal pain with nausea and vomiting Physical Exam Vital Signs: Temp Pulse Resp BP Pulse Ox 99.3 F 73 16 129/59 H 97 07/18/19 11:56 07/18/19 11:56 07/18/19 11:56 07/18/19 11:56 07/18/19 11:56 Intake & Output 07/17/19 07/18/19 07/19/19 06:59 06:59 06:59 Intake Total 4600 1680 100 Output Total 2900 Balance 1700 1680 100 Weight 69.2 kg 66.7 kg General appearance: PRESENT: no acute distress Respiratory exam: PRESENT: clear to auscultation alice. ABSENT: rales, rhonchi, wheezes Cardiovascular exam: PRESENT: RRR. ABSENT: diastolic murmur, rubs, systolic murmur GI/Abdominal exam: PRESENT: hypoactive bowel sounds, soft Neurological exam: PRESENT: alert, awake, oriented to person, oriented to place, oriented to time, oriented to situation, CN II-XII grossly intact. ABSENT: motor sensory deficit Psychiatric exam: PRESENT: appropriate affect, normal mood. ABSENT: homicidal ideation, suicidal ideation Results Laboratory Results: 07/18/19 04:14 07/18/19 04:14 07/18/19 07/18/19 04:14 04:14 WBC 5.7 RBC 4.01 Hgb 12.2 Hct 35.0 L MCV 87 MCH 30.4 MCHC 34.9 RDW 12.9 Plt Count 224 Seg Neutrophils % 68.4 Sodium 136.0 L Potassium 3.1 L Chloride 102 Carbon Dioxide 25 Anion Gap 9 BUN < 2 L Creatinine 0.54 Est GFR ( Amer) > 60 Glucose 85 Calcium 7.6 L Magnesium 1.9 Total Bilirubin 0.5 AST 23 Alkaline Phosphatase 66 Total Protein 6.5 Albumin 3.6 07/15/19 19:22 Clean Catch Midstream Urine Culture - Final Mixed Urogenital Eleuterio Impressions: Chest X-Ray 07/15/19 00:00 IMPRESSION: Appropriate nasogastric tube. Abdomen/Pelvis CT 07/15/19 10:37 IMPRESSION: 1. Small-bowel obstruction. This is in the relatively proximal loops at the level of the umbilicus. Possibly related to adhesions along the anterior abdominal wall. Small Bowel X-Ray 07/18/19 00:00 IMPRESSION: NORMAL SMALL BOWEL EXAM. NO EVIDENCE OF SMALL-BOWEL OBSTRUCTION. KUB X-Ray 07/18/19 06:00 IMPRESSION: NO RADIOGRAPHIC EVIDENCE FOR ACUTE ABDOMINAL DISEASE. Assessment and Plan - Diagnosis (1) Abdominal pain Is this a current diagnosis for this admission?: Yes (2) Vomiting Is this a current diagnosis for this admission?: Yes (3) Obesity (BMI 30-39.9) Is this a current diagnosis for this admission?: Yes (4) Chronic pain Is this a current diagnosis for this admission?: Yes (5) Constipation Qualifiers: Constipation type: other constipation type Qualified Code(s): K59.09 - Other constipation Is this a current diagnosis for this admission?: Yes (6) Hypertension Qualifiers: Hypertension type: essential hypertension Qualified Code(s): I10 - Essential (primary) hypertension Is this a current diagnosis for this admission?: Yes - Plan Summary Summary: 07/18/2019 Patient was admitted with abdominal pain nausea vomiting and possible small b owel obstruction. She has had the same presentation on multiple occasions Small bowel series today however shows no evidence of bowel obstruction. Patient did have loose stools last night Urine culture showed just mixed eleuterio Potassium slightly low at 3.1, potassium riders ordered x3 Patient's diet will be advanced slowly IV morphine will be discontinued. Patient will use Ultram as needed for pain Admission white count was 17,700 today was 5.7 Discharge when tolerating diet and having bowel movements - Time Time Spent with patient: 25-34 minutes
[2019-07-18] MEDS ORDERED: KETOROLAC TROMETHAMINE INJ/PF 30 MG/1 ML SDV IV PRN (14:12)
[2019-07-18] MEDS: MAGNESIUM HYDROXIDE SUSP 30 ML UDCUP PO PRN ×2 (16:38→19:32)
[2019-07-18] MEDS: AMITRIPTYLINE HCL 10 MG TABLET PO SCH (22:45)
[2019-07-18] MEDS: MIRTAZAPINE 15 MG TABLET PO SCH (22:45)
[2019-07-18] MEDS: DULOXETINE HCL 30 MG CAPSULE.DR PO SCH (22:48)
[2019-07-18] MEDS: SIMVASTATIN 40 MG TABLET PO SCH (22:48)
[2019-07-19] MEDS: ONDANSETRON HCL INJ/PF 4 MG/2 ML SDV IV PRN ×2 (04:54→09:25)
[2019-07-19] MEDS: PANTOPRAZOLE SODIUM 40 MG TABLET.DR PO SCH (06:21)
[2019-07-19] MEDS: HEPARIN SOD (PORCINE) 5,000 UNIT/ML 1 ML VIAL SUBCUT SCH (06:21)
[2019-07-19 08:44] LABS: ABSOLUTE BASOPHILS # (AUTO) 0.1 10^3/uL (0.0-0.2); ABSOLUTE EOSINOPHILS # (AUTO) 0.1 10^3/uL (0.0-0.6); ABSOLUTE LYMPHOCYTES (AUTO) 1.1 10^3/uL (0.5-4.7); ABSOLUTE MONOCYTES (AUTO) 0.4 10^3/uL (0.1-1.4); ABSOLUTE NEUT (AUTO) 3.2 10^3/uL (1.7-8.2); BASOPHILS % (AUTO) 1.1 % (0-2); EOSINOPHILS % (AUTO) 2.1 % (0-6); HEMATOCRIT 33.5 % (36.0-47.0); HEMOGLOBIN 11.9 g/dL (12.0-15.5); LYMPHOCYTES % (AUTO) 22.5 % (13-45); MEAN CORPUSCULAR HEMOGLOBIN 30.6 pg (27.0-33.4); MEAN CORPUSCULAR HGB CONC 35.5 g/dL (32.0-36.0); MEAN CORPUSCULAR VOLUME 86 fl (80-97); MONOCYTES % (AUTO) 8.1 % (3-13); PLATELET COUNT 250 10^3/uL (150-450); RED BLOOD COUNT 3.89 10^6/uL (3.72-5.28); RED CELL DISTRIBUTION WIDTH 13.1 % (11.5-14.0); SEGMENTED NEUTROPHILS % (AUTO) 66.2 % (42-78); TOTAL CELLS COUNTED % (AUTO) 100 %; WHITE BLOOD COUNT 4.9 10^3/uL (4.0-10.5)
[2019-07-19 09:02] LABS: ANION GAP 8 (5-19); CALCIUM 7.8 mg/dL (8.4-10.2); CARBON DIOXIDE 23 mmol/L (22-30); CHLORIDE 106 mmol/L (98-107); GLUCOSE 99 mg/dL (75-110); POTASSIUM 3.6 mmol/L (3.6-5.0)
[2019-07-19 09:06] LABS: BLOOD UREA NITROGEN < 2 mg/dL (7-20)
[2019-07-19 09:20] VITALS: BP 122/57
[2019-07-19] MEDS: POLYETHYLENE GLYCOL 3350 POWDER 17 GM/1 PACKET PO SCH (09:21)
[2019-07-19] MEDS: ASPIRIN 81 MG TABLET, ENT COATED PO SCH (09:25)
[2019-07-19] MEDS: SUCRALFATE 1 GM TABLET PO SCH (09:25)
[2019-07-19] MEDS: HYDROCHLOROTHIAZIDE 12.5 MG TABLET PO SCH (09:26)
[2019-07-19] MEDS: RALOXIFENE HCL 60 MG TABLET PO SCH (09:26)
--- NOTE | 2019-07-19 09:46 | RADIOLOGY REPORT (SQ) ---
EXAM DESCRIPTION: KUB/ABDOMEN (SINGLE VIEW) IMAGES COMPLETED DATE/TIME: 07/19/2019 9:34 am REASON FOR STUDY: sbo COMPARISON: 07/18/2019 NUMBER OF VIEWS: One view. TECHNIQUE: Supine radiographic image of the abdomen acquired. LIMITATIONS: None. FINDINGS: BOWEL GAS PATTERN: Normal bowel gas pattern. No dilated loops. Normal gas-filled colonic loops. CALCIFICATIONS: No suspicious calcifications. SOFT TISSUES: No gross mass or suggestion of organomegaly. HARDWARE: Cholecystectomy clips. BONES: No acute fracture. No worrisome bone lesions. Lower lumbar spondylosis and facet arthropathy. OTHER: No other significant finding. IMPRESSION: No evidence of intestinal obstruction or other acute intra-abdominal process. Prior cholecystectomy. TECHNICAL DOCUMENTATION: JOB ID: [id number] 2010 [employer]- All Rights Reserved Reading location - IP/workstation name: [email or web address]
--- NOTE | 2019-07-19 10:39 | PDOC PROGRESS REPORT ---
Subjective Progress Note for:: 07/19/19 Subjective:: This is a 64-year-old female admitted with a possible small bowel obstruction. Patient underwent small bowel follow-through yesterday. She has had multiple bowel movements overnight. She still complains of abdominal pain and heartburn with intermittent nausea. She denies chest pain, shortness of breath, fevers, chills, dizziness, orthostasis. Reason For Visit: SMALL BOWEL OBSTRUCTION DUE TO ADHESIONS Physical Exam Vital Signs: Temp Pulse Resp BP Pulse Ox 99.1 F 76 12 122/57 L 97 07/19/19 08:00 07/19/19 08:00 07/19/19 08:00 07/19/19 08:00 07/19/19 08:00 Intake & Output 07/18/19 07/19/19 07/20/19 06:59 06:59 06:59 Intake Total 1680 150 Balance 1680 150 Weight 66.7 kg 66.7 kg General appearance: PRESENT: no acute distress, cooperative Head exam: PRESENT: atraumatic, normocephalic Eye exam: PRESENT: EOMI, PERRLA. ABSENT: scleral icterus Mouth exam: PRESENT: moist, neck supple Neck exam: ABSENT: meningismus, tenderness, thyromegaly, tracheal deviation Respiratory exam: PRESENT: unlabored. ABSENT: chest wall tenderness, tachypnea Cardiovascular exam: ABSENT: tachycardia Vascular exam: PRESENT: normal capillary refill GI/Abdominal exam: PRESENT: soft. ABSENT: distended, guarding, tenderness Rectal exam: PRESENT: deferred Extremities exam: ABSENT: clubbing Musculoskeletal exam: ABSENT: deformity Neurological exam: PRESENT: alert, awake, oriented to person, oriented to place, oriented to time, oriented to situation Psychiatric exam: ABSENT: agitated, anxious, depressed Focused psych exam: ABSENT: delusional Skin exam: ABSENT: cyanosis, erythema, jaundice Results Laboratory Results: 07/19/19 08:00 07/19/19 08:00 07/19/19 07/19/19 08:00 08:00 WBC 4.9 RBC 3.89 Hgb 11.9 L Hct 33.5 L MCV 86 MCH 30.6 MCHC 35.5 RDW 13.1 Plt Count 250 Seg Neutrophils % 66.2 Sodium 137.3 Potassium 3.6 Chloride 106 Carbon Dioxide 23 Anion Gap 8 BUN < 2 L Creatinine 0.43 L Est GFR ( Amer) > 60 Glucose 99 Calcium 7.8 L Impressions: Chest X-Ray 07/15/19 00:00 IMPRESSION: Appropriate nasogastric tube. Abdomen/Pelvis CT 07/15/19 10:37 IMPRESSION: 1. Small-bowel obstruction. This is in the relatively proximal loops at the level of the umbilicus. Possibly related to adhesions along the anterior abdominal wall. Small Bowel X-Ray 07/18/19 00:00 IMPRESSION: NORMAL SMALL BOWEL EXAM. NO EVIDENCE OF SMALL-BOWEL OBSTRUCTION. KUB X-Ray 07/19/19 08:49 IMPRESSION: No evidence of intestinal obstruction or other acute intra- abdominal process. Prior cholecystectomy. Assessment & Plan - Diagnosis (1) Constipation Qualifiers: Constipation type: other constipation type Qualified Code(s): K59.09 - Other constipation Is this a current diagnosis for this admission?: Yes - Plan Summary Plan Summary: The patient was admitted with abdominal pain, and possible small bowel obstruction. The patient is currently having bowel movements. I have reviewed her small bowel follow-through, which is essentially normal. Her KUB today shows no residual air or contrast within the small bowel or colon. At this time, the patient has no sign or symptom of small bowel obstruction. The patient has chronic abdominal pain. I would continue with her PPI and Carafate. I would also add MiraLAX and Metamucil to her daily medication regimen. She takes Linzess at home for chronic constipation, which I would continue. She may advance her diet as tolerated. I see no indication for surgical intervention at this time. Surgery will sign off. Please renotify with any questions or concerns. The case has been discussed with Dr. Vazquez.
--- NOTE | 2019-07-19 11:06 | PDOC DISCHARGE SUMMARY ---
Impression - Admit/DC Date/PCP Admission Date/Primary Care Provider: 07/15/19 17:39 MAGDALENA SHAH PA-C Discharge Date: 07/19/19 - Assessment Summary: 07/18/2019 Patient was admitted with abdominal pain nausea vomiting and possible small bowel obstruction. She has had the same presentation on multiple occasions Small bowel series today however shows no evidence of bowel obstruction. Patient did have loose stools last night Urine culture showed just mixed eleuterio Potassium slightly low at 3.1, potassium riders ordered x3 Patient's diet will be advanced slowly IV morphine will be discontinued. Patient will use Ultram as needed for pain Admission white count was 17,700 today was 5.7 Discharge when tolerating diet and having bowel movements - Additional Information Resuscitation Status: Full Code Discharge Diet: Full Liquids - And advance slowly Discharge Activity: Activity As Tolerated Referrals: [facility] [Outside] (PATIENT TO BE FOLLOWED BY HEALTH DEPT. ON SELF QUARANTINE AT HOME. ONCE THE HEALTH DEPT. RELEASES PATIENT THEN PATIENT MAY SCHEDULE A FOLLOW UP APPT. WITH PCP.) MAGDALENA SHAH PA-C [Primary Care Provider] - Follow up as needed Prescriptions: Linaclotide [Linzess 145 Mcg Capsule] 145 mcg PO DAILY 30 Days #30 capsule Home Medications: Amitriptyline HCl [Elavil 10 mg Tablet] 20 mg PO QHS 07/01/18 Aspirin [Ecotrin] 81 mg PO DAILY 07/01/18 Eszopiclone [Lunesta] 3 mg PO HSP PRN 07/01/18 Hydrochlorothiazide [Hydrodiuril 12.5 mg Tablet] 12.5 mg PO DAILY 07/01/18 Meclizine HCl [Antivert 12.5 mg Tablet] 12.5 mg PO BIDP PRN 07/01/18 Nitroglycerin [Nitrostat 0.4 mg (1/150 Gr) Tabs 25/Bottle] 1 tab SL Q5MP PRN 07/01/18 Raloxifene HCl [Evista 60 mg Tablet] 60 mg PO ACBRKFST 07/01/18 Simvastatin [Zocor 80 mg Tablet] 80 mg PO QHS 07/01/18 Tramadol HCl [Ultram 50 mg Tablet] 50 mg PO Q4HP PRN 7 Days #12 tab 06/23/19 Baclofen [Baclofen 10 mg Tablet] 10 mg PO Q8HP PRN 07/09/19 Celecoxib 100 mg PO WBRKFST 07/09/19 Diclofenac Sodium 2 gm TOP QIDP PRN 07/09/19 Duloxetine HCl 60 mg PO QHS 07/09/19 Mirtazapine [Remeron 15 mg Tablet] 15 mg PO QHS 07/09/19 Ondansetron HCl 4 mg PO Q8HP PRN 07/09/19 Metoclopramide HCl 5 mg PO ACHS 14 Days #56 tablet 07/10/19 Pantoprazole Sodium [Protonix [address] Tablet] 40 mg PO BID 14 Days #28 tablet.dr 07/10/19 Sucralfate [Carafate Susp 1 gm/10 ml Udcup] 1 gm PO ACHS 14 Days #56 udc 07/10/19 Acetaminophen [Tylenol Soln 325 mg/10.15 ml Udcup] 650 mg PO Q4HP PRN udc 07/19/19 Linaclotide [Linzess 145 Mcg Capsule] 145 mcg PO DAILY 30 Days #30 capsule 07/19/19 Linaclotide [Linzess] 72 mcg PO QPM #0 07/19/19 Pantoprazole Sodium [Protonix [address] Tablet] 40 mg PO BID@0600,1700 tablet. 07/19/19 Polyethylene Glycol 3350 [Miralax Powder 17 gm/Packet] 17 gm PO BID powd.pack 07/19/19 History of Present Illiness History of Present Illness: CARMEN HORTON is a 64 year old female with history of hypertension, hypercholesteremia, osteoarthritis, degenerative disc disease, gallbladder removal, appendicectomy, hysterectomy, chronic constipation came to the emergency room with complaints of abdominal pain since yesterday. Severe abdominal pain associated with nausea and vomitings did not have any bowel movement for the last 2 days. Decided to came to the ER for further evaluation CT scan of the abdominal pelvis indicate complete small bowel obstruction with a transition point and adhesions. Surgical consult was requested by the ER physician the recommendation is patient did not need immediate surgery and recommended follow-up radiological investigations in next 24 hours if the gas pattern is not improved plan is to arrange for surgery. Medical consult was called for admission. Hospital Course Hospital Course: The patient has had multiple admissions for this chronic issue. This admission followed a similar course. 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 A conservative approach was utilized as the patient has lots of adhesions and would be a difficult surgical case. Nasogastric tube was placed and the patient had bowel rest. Subsequent studies revealed complete passage of contrast through to the colon. The right-sided fecal load passed as well. At the time of discharge I encouraged her once again to eat smaller more frequent meals and to continue the Protonix and Carafate. Physical Exam Vital Signs: Temp Pulse Resp BP Pulse Ox 99.1 F 76 12 122/57 L 97 07/19/19 08:00 07/19/19 08:00 07/19/19 08:00 07/19/19 08:00 07/19/19 08:00 Intake & Output 07/18/19 07/19/19 07/20/19 06:59 06:59 06:59 Intake Total 1680 150 Balance 1680 150 Weight 66.7 kg 66.7 kg General appearance: PRESENT: no acute distress, cooperative, well-developed Head exam: PRESENT: atraumatic, normocephalic Respiratory exam: PRESENT: clear to auscultation alice, symmetrical, unlabored. ABSENT: rales, rhonchi, wheezes Cardiovascular exam: PRESENT: RRR, +S1, +S2 GI/Abdominal exam: PRESENT: normal bowel sounds, soft. ABSENT: distended, guarding, tenderness Rectal exam: PRESENT: deferred Neurological exam: PRESENT: alert, awake, oriented to person, oriented to place, oriented to time, oriented to situation, CN II-XII grossly intact Psychiatric exam: PRESENT: anxious - Slightly anxious about possible recurrence, flat affect. ABSENT: agitated Focused psych exam: ABSENT: delusional, paranoid, restlessness Results Laboratory Results: WBC 4.9 10^3/uL (4.0-10.5) 07/19/19 08:00 RBC 3.89 10^6/uL (3.72-5.28) 07/19/19 08:00 Hgb 11.9 g/dL (12.0-15.5) L 07/19/19 08:00 Hct 33.5 % (36.0-47.0) L 07/19/19 08:00 MCV 86 fl (80-97) 07/19/19 08:00 MCH 30.6 pg (27.0-33.4) 07/19/19 08:00 MCHC 35.5 g/dL (32.0-36.0) 07/19/19 08:00 RDW 13.1 % (11.5-14.0) 07/19/19 08:00 Plt Count 250 10^3/uL (150-450) 07/19/19 08:00 Lymph % (Auto) 22.5 % (13-45) 07/19/19 08:00 Maury % (Auto) 8.1 % (3-13) 07/19/19 08:00 Eos % (Auto) 2.1 % (0-6) 07/19/19 08:00 Baso % (Auto) 1.1 % (0-2) 07/19/19 08:00 Absolute Neuts (auto) 3.2 10^3/uL (1.7-8.2) 07/19/19 08:00 Absolute Lymphs (auto) 1.1 10^3/uL (0.5-4.7) 07/19/19 08:00 Absolute Monos (auto) 0.4 10^3/uL (0.1-1.4) 07/19/19 08:00 Absolute Eos (auto) 0.1 10^3/uL (0.0-0.6) 07/19/19 08:00 Absolute Basos (auto) 0.1 10^3/uL (0.0-0.2) 07/19/19 08:00 Seg Neutrophils % 66.2 % (42-78) 07/19/19 08:00 PT 13.8 SEC (11.4-15.4) 07/15/19 20:00 INR 1.06 07/15/19 20:00 Sodium 137.3 mmol/L (137-145) 07/19/19 08:00 Potassium 3.6 mmol/L (3.6-5.0) 07/19/19 08:00 Chloride 106 mmol/L (98-107) 07/19/19 08:00 Carbon Dioxide 23 mmol/L (22-30) 07/19/19 08:00 Anion Gap 8 (5-19) 07/19/19 08:00 BUN < 2 mg/dL (7-20) L 07/19/19 08:00 Creatinine 0.43 mg/dL (0.52-1.25) L 07/19/19 08:00 Est GFR ( Amer) > 60 (>60) 07/19/19 08:00 Est GFR (MDRD) Non-Af > 60 (>60) 07/19/19 08:00 Glucose 99 mg/dL (75-110) 07/19/19 08:00 Hemoglobin A1c % 5.2 % (4.7-6.0) 07/16/19 05:47 Lactic Acid 0.9 mmol/L (0.7-2.1) 07/15/19 09:45 Calcium 7.8 mg/dL (8.4-10.2) L 07/19/19 08:00 Magnesium 1.9 mg/dL (1.6-2.3) 07/18/19 04:14 Total Bilirubin 0.5 mg/dL (0.2-1.3) 07/18/19 04:14 Direct Bilirubin 0.0 mg/dL (0.0-0.4) 07/18/19 04:14 Neonat Total Bilirubin Not Reportable 07/18/19 04:14 Neonat Direct Bilirubin Not Reportable 07/18/19 04:14 Neonat Indirect Bili Not Reportable 07/18/19 04:14 AST 23 U/L (14-36) 07/18/19 04:14 ALT 15 U/L (<35) 07/18/19 04:14 Alkaline Phosphatase 66 U/L (38-126) 07/18/19 04:14 Total Protein 6.5 g/dL (6.3-8.2) 07/18/19 04:14 Albumin 3.6 g/dL (3.5-5.0) 07/18/19 04:14 Triglycerides 97 mg/dL (<150) 07/16/19 05:47 Cholesterol 120.44 mg/dL (0-200) 07/16/19 05:47 LDL Cholesterol Direct 47 mg/dL (<100) 07/16/19 05:47 VLDL Cholesterol 19.0 mg/dL (10-31) 07/16/19 05:47 HDL Cholesterol 58 mg/dL (>40) 07/16/19 05:47 Lipase 82.6 U/L (23-300) 07/15/19 07:24 Urine Color YELLOW 07/15/19 08:35 Urine Appearance SLIGHTLY-CLOUDY 07/15/19 08:35 Urine pH 5.0 (5.0-9.0) 07/15/19 08:35 Ur Specific Hudson 1.018 07/15/19 08:35 Urine Protein 30 mg/dL (NEGATIVE) H 07/15/19 08:35 Urine Glucose (UA) NEGATIVE mg/dL (NEGATIVE) 07/15/19 08:35 Urine Ketones TRACE mg/dL (NEGATIVE) H 07/15/19 08:35 Urine Blood NEGATIVE (NEGATIVE) 07/15/19 08:35 Urine Nitrite NEGATIVE (NEGATIVE) 07/15/19 08:35 Urine Bilirubin NEGATIVE (NEGATIVE) 07/15/19 08:35 Urine Urobilinogen 2.0 mg/dL (<2.0) H 07/15/19 08:35 Ur Leukocyte Esterase MODERATE (NEGATIVE) H 07/15/19 08:35 Urine WBC (Auto) 13 /HPF 07/15/19 08:35 Urine RBC (Auto) 2 /HPF 07/15/19 08:35 U Hyaline Cast (Auto) 27 /LPF 07/15/19 08:35 Squamous Epi Cells Auto 5 /HPF 07/15/19 08:35 U Non-Squamous Epis Auto 3 /HPF 07/15/19 08:35 Urine Mucus (Auto) MOD /LPF 07/15/19 08:35 Urine Ascorbic Acid NEGATIVE (NEGATIVE) 07/15/19 08:35 Urine Opiates Screen UNCONFIRMED POSITIVE 07/15/19 19:22 Urine Methadone Screen NEGATIVE 07/15/19 19:22 Ur Barbiturates Screen NEGATIVE 07/15/19 19:22 Ur Phencyclidine Scrn NEGATIVE 07/15/19 19:22 Ur Amphetamines Screen NEGATIVE 07/15/19 19:22 U Benzodiazepines Scrn NEGATIVE 07/15/19 19:22 Urine Cocaine Screen NEGATIVE 07/15/19 19:22 U Marijuana (THC) Screen NEGATIVE 07/15/19 19:22 Impressions: Chest X-Ray 07/15/19 00:00 IMPRESSION: Appropriate nasogastric tube. KUB X-Ray 07/15/19 07:59 IMPRESSION: Dilated small bowel loops in the mid epigastrium worrisome for early or partial small bowel obstruction Abdomen/Pelvis CT 07/15/19 10:37 IMPRESSION: 1. Small-bowel obstruction. This is in the relatively proximal loops at the level of the umbilicus. Possibly related to adhesions along the anterior abdominal wall. KUB X-Ray 07/16/19 07:00 IMPRESSION: 1. Minimal persistent focal ileus suggested. Stool retention. KUB X-Ray 07/17/19 00:00 IMPRESSION: Resolving fecal retention. Small Bowel X-Ray 07/18/19 00:00 IMPRESSION: NORMAL SMALL BOWEL EXAM. NO EVIDENCE OF SMALL-BOWEL OBSTRUCTION. KUB X-Ray 07/18/19 06:00 IMPRESSION: NO RADIOGRAPHIC EVIDENCE FOR ACUTE ABDOMINAL DISEASE. KUB X-Ray 07/19/19 08:49 IMPRESSION: No evidence of intestinal obstruction or other acute intra- abdominal process. Prior cholecystectomy. Plan Health Concerns: High likelihood of recurrence Plan of Treatment: Continue PPI and Carafate. Try to eat smaller and more frequent meals. Be extremely mindful of increasing pain or distention. Goals: The patient has multiple adhesions and this is a difficult situation. We are going to try a slightly different course of her Linzess with a higher dose in the morning and smaller dose in the evening. 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 Time Spent: Greater than 30 Minutes Stroke Is this a Stroke Patient?: No Acute Heart Failure - Is this a Heart Failure Patient?: No
== END 2019-07-19 13:10 | disposition home or self-care (01) | DRG 389 ==
LOC: ER 06:57 → EH 17:39 → 5 18:51
PROVIDERS: ADMIT Internal Medicine; ATTEND Hospitalist
DX: K56.51 Intestinal adhesions [bands], with partial obstruction (principal); E87.1 Hypo-osmolality and hyponatremia; I10 Essential (primary) hypertension; E78.00 Pure hypercholesterolemia, unspecified; E78.5 Hyperlipidemia, unspecified; K21.9 Gastro-esophageal reflux disease without esophagitis; K44.9 Diaphragmatic hernia without obstruction or gangrene; F32.9 Major depressive disorder, single episode, unspecified; F43.10 Post-traumatic stress disorder, unspecified; F41.9 Anxiety disorder, unspecified; K59.09 Other constipation; G89.4 Chronic pain syndrome; E66.9 Obesity, unspecified; Z79.82 Long term (current) use of aspirin; Z79.899 Other long term (current) drug therapy; Z91.041 Radiographic dye allergy status; Z90.49 Acquired absence of other specified parts of digestive tract
CPT/HCPCS: 36415; 71045; 74018; 74176; 74250; 80048; 80053; 80061; 80307; 81001; 83036; 83605; 83690; 83735; 85025; 85610; 87086; 93005; 93010; 94640; 96361; 96374; 96375; 96376; 99285; C9113; J1200; J1644; J1885; J2060; J2270; J2405; J3480; J3490; J7030; J7050; S0028

== ENCOUNTER 2019-10-10 15:03 | Emergency (ER) | payer MEDICARE, MEDICAID ==
--- NOTE | 2019-10-10 15:28 | ER Document Report ---
ED General - General Chief Complaint: Chest Pain Stated Complaint: CHEST PAIN Time Seen by Provider: 10/10/19 15:28 Primary Care Provider: FARTUN WINSLOW MD [ACTIVE STAFF] - Follow up as needed MIEN CRAIG MD [ASSOCIATE] - Follow up as needed Mode of Arrival: Medic Information source: Patient TRAVEL OUTSIDE OF THE [place] IN LAST 30 DAYS: No - HPI Onset: Other - at 2pm today Onset/Duration: Sudden Quality of pain: Burning, Pressure Severity: Moderate Pain Level: 3 Associated symptoms: Nausea, Other - pain with taking deep breath Exacerbated by: Deep breathing Relieved by: Denies Similar symptoms previously: Yes Recently seen / treated by doctor: No Notes: 64 year old female with a history of GERD, Ulcers, HTN, HLD, DDD, Arthritis, Chronic Constipation, Cholecystectomy, Appendectomy here in the ER for chest pain and RUQ abdominal pain with nausea which started at 2pm while sitting in a reclining chair. The patient denies recent fevers, chills, sweats but she did no shereen some mild chest and abdominal pains last night briefly that went away on their own. The patient says she had a cardiac stress test about 2 years ago which was normal and she said she had an endoscopy about a year ago showing gastritis and an ulcer. - Related Data Allergies/Adverse Reactions: Iodinated Contrast Media [Iodinated Contrast- Oral and IV Dye] Allergy (Intermediate, Verified 10/26/18 23:56) IVP dye Allergy (Intermediate, Uncoded 08/26/18 08:55) rash Past Medical History - General Information source: Patient - Social History Smoking Status: Never Smoker Chew tobacco use (# tins/day): No Frequency of alcohol use: None Drug Abuse: None Family History: Reviewed & Not Pertinent, CAD, CVA, Malignancy Patient has homicidal ideation: No - Past Medical History Cardiac Medical History: Reports: Hx Hypercholesterolemia, Hx Hypertension Pulmonary Medical History: Reports: Hx Pneumonia Denies: Hx Asthma, Hx Bronchitis, Hx COPD, Hx Respiratory Failure, Hx Sleep Apnea, Hx Tuberculosis Neurological Medical History: Reports: Hx Cerebrovascular Accident - Patient reports "mini stroke". Denies: Hx Parkinson's Disease Endocrine Medical History: Denies: Hx Diabetes Mellitus Type 1, Hx Diabetes Mellitus Type 2 Renal/ Medical History: Reports: Hx Kidney Stones. Denies: Hx End Stage Renal Disease, Hx Ovarian Cysts, Hx Peritoneal Dialysis Malignancy Medical History: Denies: Hx Breast Cancer, Hx Cervical Cancer, Hx Leukemia, Hx Lung Cancer, Hx Ovarian Cancer GI Medical History: Reports: Hx Gastroesophageal Reflux Disease, Hx Hiatal Hernia, Hx Ulcer. Denies: Hx Crohn's Disease, Hx Irritable Bowel, Hx Liver Failure, Hx Pancreatitis Musculoskeletal Medical History: Reports Hx Arthritis, Denies Hx Fibromyalgia, Denies Hx Multiple Sclerosis, Denies Hx Muscular Dystrophy Psychiatric Medical History: Reports: Hx Depression, Hx Post Traumatic Stress Disorder Denies: Hx Bipolar Disorder, Hx Dementia, Hx Schizophrenia Traumatic Medical History: Reports: Hx Fractures - left wrist Infectious Medical History: Denies: Hx HIV Past Surgical History: Reports: Hx Abdominal Surgery - Hernia mesh placed, Hx Adenoidectomy, Hx Appendectomy, Hx Cholecystectomy, Hx Hysterectomy, Hx Orthopedic Surgery - carpal tunnel, Other - Sigmoid colectomy, rectopexy Dr. Fowler 2013; abdominal wall hernia surg. Denies: Hx Bowel Surgery, Hx Section, Hx Colostomy, Hx Coronary Artery Bypass Graft, Hx Gastric Bypass Surgery, Hx Herniorrhaphy, Hx Mastectomy, Hx Pacemaker, Hx Tonsillectomy, Hx Tubal Ligation - Immunizations Hx Diphtheria, Pertussis, Tetanus Vaccination: Yes Hx Pneumococcal Vaccination: 01/17/18 Review of Systems - Review of Systems Constitutional: No symptoms reported EENT: No symptoms reported Cardiovascular: Chest pain Respiratory: Hurts to breathe Gastrointestinal: Abdominal pain, Nausea Genitourinary: No symptoms reported Female Genitourinary: No symptoms reported Musculoskeletal: No symptoms reported Skin: No symptoms reported Hematologic/Lymphatic: No symptoms reported Neurological/Psychological: No symptoms reported -: Yes All other systems reviewed and negative Physical Exam - Vital signs Vitals: Resp 16 10/10/19 15:07 - Notes Notes: GENERAL: Well-appearing, well-nourished and in no acute distress. HEAD: Atraumatic, normocephalic. EYES: Pupils equal round and reactive to light, extraocular movements intact, sclera anicteric, conjunctiva are normal. ENT: External ears normal, nares patent, oropharynx clear without exudates. Mo ist mucous membranes. NECK: Normal range of motion, supple without lymphadenopathy or JVD. LUNGS: Breath sounds clear to auscultation bilaterally and equal. No wheezes rales or rhonchi. HEART: Regular rate and rhythm without murmurs, rubs or gallops. Mild tenderness over left chest wall on palpation. ABDOMEN: Soft, mild tenderness in RUQ. Rest of abdomen is nontender, normoactive bowel sounds. No guarding, no rebound. No masses appreciated. EXTREMITIES: Normal range of motion, no pitting or edema. No clubbing or cyanosis. NEUROLOGICAL: Cranial nerves II through XII grossly intact. Normal speech, normal gait. PSYCH: Normal mood, normal affect. SKIN: Warm, Dry, normal turgor, no rashes or lesions noted. Course - Re-evaluation Re-evalutation: 10/10/19 20:15 The patient is here for chest pains, epigastric pains, and RUQ pains. The patient has a history of chronic pains and GERD. The patient is already on a PPI, Famotidine, and Tums. Patient has been on Carafate in the past and she has gotten some reielf. Will therefore try her again on Carafate. Will have the patient follow up with her PCP and GI. Patient's symptoms ahuja not sound cardiac in nature. Patient told she should follow up with an outpatient office clin asst however for a stress test. Patient had 2 completely negative Trops in the ER making ACS unlikely. - Vital Signs Vital signs: Temp Pulse Resp BP Pulse Ox 98.6 F 12 128/77 H 93 10/10/19 15:22 10/10/19 19:01 10/10/19 19:01 10/10/19 19:01 - Laboratory Result Diagrams: 10/10/19 15:18 10/10/19 15:18 Laboratory results interpreted by me: 10/10/19 15:18 Sodium 134.3 L Glucose 204 H - Diagnostic Test Radiology reviewed: Image reviewed, Reports reviewed - EKG Interpretation by Ca EKG shows normal: Sinus rhythm, [place], Intervals, QRS Complexes, ST-T Waves Rate: Normal Discharge - Discharge Clinical Impression: Gastritis Qualifiers: Gastritis type: unspecified gastritis Chronicity: chronic Gastritis bleeding: without bleeding Qualified Code(s): K29.50 - Unspecified chronic gastritis without bleeding Chest pain Qualifiers: Chest pain type: unspecified Qualified Code(s): R07.9 - Chest pain, unspecified Condition: Stable Disposition: HOME, SELF-CARE Instructions: Gastritis ([facility]), Reflux Disease (GERD) ([facility]) Additional Instructions: Use Carafate as prescribed along with your previous anti-acid medications. Follow up with a GI Doctor as soon as possible if symptoms persist and discuss the dose and frequency of Carafate you should be on based on prior endoscopies and current symptoms. Prescriptions: Sucralfate [Carafate 1 gm Tablet] 1 gm PO ACHS #60 tablet Referrals: MINE CRAIG MD [ASSOCIATE] - Follow up as needed FARTUN WINSLOW MD [ACTIVE STAFF] - Follow up as needed
[2019-10-10 15:32] LABS: ABSOLUTE LYMPHOCYTES (AUTO) 1.4 10^3/uL (0.5-4.7); ABSOLUTE MONOCYTES (AUTO) 0.4 10^3/uL (0.1-1.4); ABSOLUTE NEUT (AUTO) 5.1 10^3/uL (1.7-8.2); BASOPHILS % (AUTO) 0.6 % (0-2); EOSINOPHILS % (AUTO) 0.7 % (0-6); HEMATOCRIT 38.5 % (36.0-47.0); HEMOGLOBIN 13.1 g/dL (12.0-15.5); LYMPHOCYTES % (AUTO) 20.4 % (13-45); MEAN CORPUSCULAR HEMOGLOBIN 29.8 pg (27.0-33.4); MEAN CORPUSCULAR HGB CONC 34.1 g/dL (32.0-36.0); MEAN CORPUSCULAR VOLUME 87 fl (80-97); MONOCYTES % (AUTO) 5.9 % (3-13); PLATELET COUNT 248 10^3/uL (150-450); SEGMENTED NEUTROPHILS % (AUTO) 72.4 % (42-78); TOTAL CELLS COUNTED % (AUTO) 100 %
--- NOTE | 2019-10-10 15:43 | RADIOLOGY REPORT (SQ) ---
EXAM DESCRIPTION: CHEST SINGLE VIEW IMAGES COMPLETED DATE/TIME: 10/10/2019 3:30 pm REASON FOR STUDY: chest pain COMPARISON: AP view of the chest from 07/15/2019. EXAM PARAMETERS: NUMBER OF VIEWS: One view. TECHNIQUE: An AP view of the chest was obtained. RADIATION DOSE: NA LIMITATIONS: None. FINDINGS: LUNGS AND PLEURA: No consolidation, pleural effusion or pneumothorax. MEDIASTINUM AND HILAR STRUCTURES: No mediastinal or hilar contour abnormality. HEART AND VASCULAR STRUCTURES: The cardiac silhouette and pulmonary vasculature are within normal sandoval its. BONES: No acute findings. HARDWARE: Cholecystectomy clips. OTHER: No other finding. IMPRESSION: No acute cardiopulmonary process. TECHNICAL DOCUMENTATION: JOB ID: [id number] 2010 [employer]- All Rights Reserved Reading location - IP/workstation name: [email or web address]
[2019-10-10 15:45] LABS: ALBUMIN 4.4 g/dL (3.5-5.0); ALKALINE PHOSPHATASE 58 U/L (38-126); ANION GAP 9 (5-19); ASPARTATE AMINO TRANSFERASE 28 U/L (14-36); BILIRUBIN,TOTAL 0.4 mg/dL (0.2-1.3); BLOOD UREA NITROGEN 14 mg/dL (7-20); CALCIUM 9.5 mg/dL (8.4-10.2); CARBON DIOXIDE 25 mmol/L (22-30); CHLORIDE 100 mmol/L (98-107); CREATINE KINASE 35 U/L (30-135); GLUCOSE 204 mg/dL (75-110); POTASSIUM 3.7 mmol/L (3.6-5.0); TOTAL PROTEIN 7.4 g/dL (6.3-8.2)
[2019-10-10 15:58] LABS: CREATINE KINASE MB < 0.22 ng/mL (<4.55); TROPONIN I < 0.012 ng/mL
[2019-10-10] MEDS ORDERED: ONDANSETRON 4 MG TAB.RAPDIS PO ONE (16:25)
[2019-10-10] MEDS ORDERED: MAG HYDROX/AL HYDROX/SIMETH SUSP 30 ML UDCUP PO ONE (16:26)
[2019-10-10] MEDS ORDERED: LIDOCAINE 2% VISCOUS SOLN 15 ML UDCUP PO ONE (16:26)
[2019-10-10] MEDS ORDERED: METOCLOPRAMIDE HCL ORAL SOLN 10 MG/10 ML UDCUP PO ONE (16:26)
[2019-10-10] MEDS ORDERED: NAPROXEN 250 MG TABLET PO ONE (18:59)
[2019-10-10 20:33] VITALS: BP 138/74
--- NOTE | 2019-10-11 13:14 | EKG REPORT ---
SEVERITY:- ABNORMAL ECG - SINUS RHYTHM, CAN NOT R/O A FLUTTER, REC REPEAT EKG WITH PATIENT STILL AND WITH FILTER BORDERLINE T ABNORMALITIES, INFERIOR LEADS : Confirmed by: Jose M Rome 11-Oct-2019 13:14:29
== END 2019-10-10 20:33 | disposition home or self-care (01) ==
LOC: ER 15:03
DX: R07.89 Other chest pain (principal); R07.1 Chest pain on breathing; K29.50 Unspecified chronic gastritis without bleeding; K21.9 Gastro-esophageal reflux disease without esophagitis; R10.811 Right upper quadrant abdominal tenderness; R10.11 Right upper quadrant pain; R11.0 Nausea; I10 Essential (primary) hypertension; Z79.899 Other long term (current) drug therapy; Z90.49 Acquired absence of other specified parts of digestive tract; Z91.041 Radiographic dye allergy status
CPT/HCPCS: 93005; 99285; 36415; 82553; 82550; 85025; 80053; 84484; 71045; 93010; A9270 ×4; J3490; S0119

== ENCOUNTER 2019-10-14 21:19 | Emergency (ER) | payer MEDICARE, MEDICAID ==
--- NOTE | 2019-10-14 22:19 | ER Document Report ---
ED GI/ - General Chief Complaint: Abdominal Pain Stated Complaint: ADOMINAL PAIN Time Seen by Provider: 10/14/19 22:10 Primary Care Provider: MAGDALENA SHAH PA-C [Primary Care Provider] - Follow up tomorrow Mode of Arrival: Medic Information source: Patient Notes: 64-year-old female presented to ED for complaint of abdominal pain that started about 1:00 this afternoon. She states it is been going on since then and has been severe with nausea and vomiting. She states she has vomited about 4 times since then. She states she has been seen for obstructions 7 times previously. Patient was given Zofran and Benadryl IV on the way to the hospital by EMS. I have also given her Zofran. She has got IV fluids running. They did attempt to cast her and was only able to get a very small amount. She does have a another liter of fluids to be given after the first is completed. She did see her PCP about 4 days ago for abdominal pain and chest pain she was seen in the emergency room on 09 October for chest pain. TRAVEL OUTSIDE OF THE [place] IN LAST 30 DAYS: No - HPI Patient complains to provider of: Abdominal pain, Vomiting Onset: This evening Timing/Duration: Persistent Quality of pain: Sharp Severity at maximum: Severe Severity in ED: Severe Pain Level: 5 Location: Other Vaginal bleeding (Compared to normal period): None - Generalized abdominal pain Associated symptoms: Nausea, Vomiting Exacerbated by: Denies Relieved by: Denies Similar symptoms previously: Yes Recently seen / treated by doctor: Yes - Related Data Allergies/Adverse Reactions: Iodinated Contrast Media [Iodinated Contrast- Oral and IV Dye] Allergy (Interm ediate, Verified 10/26/18 23:56) IVP dye Allergy (Intermediate, Uncoded 08/26/18 08:55) rash Past Medical History - General Information source: Patient - Social History Smoking Status: Never Smoker Chew tobacco use (# tins/day): No Frequency of alcohol use: None Drug Abuse: None Family History: Reviewed & Not Pertinent, CAD, CVA, Malignancy Patient has homicidal ideation: No - Past Medical History Cardiac Medical History: Reports: Hx Hypercholesterolemia, Hx Hypertension Pulmonary Medical History: Reports: Hx Pneumonia EENT Medical History: Reports: None Neurological Medical History: Reports: Hx Cerebrovascular Accident - Patient reports "mini stroke". Denies: Hx Parkinson's Disease Endocrine Medical History: Reports: None Renal/ Medical History: Reports: Hx Kidney Stones Malignancy Medical History: Reports: None GI Medical History: Reports: Hx Gastroesophageal Reflux Disease, Hx Hiatal Hernia, Hx Ulcer Musculoskeletal Medical History: Reports Hx Arthritis Skin Medical History: Reports None Psychiatric Medical History: Reports: Hx Depression, Hx Post Traumatic Stress Disorder Traumatic Medical History: Reports: Hx Fractures - left wrist Infectious Medical History: Reports: None. Denies: Hx HIV Past Surgical History: Reports: Hx Abdominal Surgery - Hernia mesh placed, Hx Adenoidectomy, Hx Appendectomy, Hx Bowel Surgery, Hx Cholecystectomy, Hx Hysterectomy, Hx Orthopedic Surgery - carpal tunnel, Other - Sigmoid colectomy, rectopexy Dr. Fowler 2013; abdominal wall hernia surg - Immunizations Hx Diphtheria, Pertussis, Tetanus Vaccination: Yes Hx Pneumococcal Vaccination: 01/17/18 Review of Systems - Review of Systems Constitutional: No symptoms reported EENT: No symptoms reported Cardiovascular: No symptoms reported Respiratory: No symptoms reported Gastrointestinal: Abdominal pain, Nausea, Vomiting Genitourinary: No symptoms reported Female Genitourinary: No symptoms reported Musculoskeletal: No symptoms reported Skin: No symptoms reported Hematologic/Lymphatic: No symptoms reported Neurological/Psychological: No symptoms reported -: Yes All other systems reviewed and negative Physical Exam - Vital signs Vitals: Temp Pulse Resp BP Pulse Ox 98.4 F 84 18 129/80 H 97 10/14/19 21:32 10/14/19 21:32 10/14/19 21:32 10/14/19 21:32 10/14/19 21:32 Interpretation: Normal - General General appearance: Appears well, Alert - HEENT Head: Normocephalic, Atraumatic Eyes: Normal Pupils: PERRL - Respiratory Respiratory status: No respiratory distress Chest status: Nontender Breath sounds: Normal Chest palpation: Normal - Cardiovascular Rhythm: Regular Heart sounds: Normal auscultation Murmur: No - Abdominal Inspection: Normal, Other - Multiple scars to the abdomen Distension: No distension Bowel sounds: Hyperactive Tenderness: Tender - Her last Organomegaly: No organomegaly - Back Back: Normal, Nontender - Extremities General upper extremity: Normal inspection, Nontender, Normal color, Normal ROM, Normal temperature General lower extremity: Normal inspection, Nontender, Normal color, Normal ROM, Normal temperature, Normal weight bearing. No: Sam's sign - Neurological Neuro grossly intact: Yes Cognition: Normal Orientation: AAOx4 [place] Coma Scale Eye Opening: Spontaneous [place] Coma Scale Verbal: Oriented [place] Coma Scale Motor: Obeys Commands Familia Coma Scale Total: 15 Speech: Normal Motor strength normal: LUE, RUE, LLE, RLE Sensory: Normal - Psychological Associated symptoms: Normal affect, Normal mood - Skin Skin Temperature: Warm Skin Moisture: Dry Skin Color: Normal Course - Re-evaluation Re-evalutation: 10/15/19 08:[address] with patient. Patient was given report of labs and CT before discharge. She stated she would follow-up with primary care doctor. She stated she was feeling much better before discharge. Patient was discharged home. - Vital Signs Vital signs: Temp Pulse Resp BP Pulse Ox 98.8 F 84 16 124/75 95 10/15/19 04:08 10/14/19 21:32 10/15/19 04:08 10/15/19 04:08 10/15/19 04:08 - Laboratory Result Diagrams: 10/14/19 22:55 10/14/19 22:55 Laboratory results interpreted by me: 10/14/19 10/14/19 10/14/19 22:55 22:55 22:55 WBC 11.7 H Lymph % (Auto) 7.0 L Absolute Neuts (auto) 10.1 H Seg Neutrophils % 86.6 H Sodium 135.4 L Glucose 122 H Ur Leukocyte Esterase TRACE H - Diagnostic Test Radiology reviewed: Image reviewed, Reports reviewed Discharge - Discharge Clinical Impression: Abdominal pain Qualifiers: Abdominal location: generalized Qualified Code(s): R10.84 - Generalized abdominal pain Vomiting Qualifiers: Vomiting type: unspecified Vomiting Intractability: non-intractable Nausea presence: with nausea Qualified Code(s): R11.2 - Nausea with vomiting, unspecified Condition: Stable Disposition: HOME, SELF-CARE Additional Instructions: ABDOMINAL PAIN: There are many causes of abdominal pain. Pain can mean a serious problem requiring surgery (such as appendicitis). It can also be an innocent problem that goes away on its own (such as a viral infection). Often, time must pass to determine the cause of pain. The physician does not feel that hospitalization is necessary, at present. Things may change within the next 24 hours. Call the doctor or come back for re- examination if any problems occur, such as: (1) Pain that becomes more severe, steady, or becomes concentrated in one specific area. Also, pain that is more severe with movement or coughing. (2) Vomiting that persists or becomes more frequent. (3) Blood in the vomitus, urine, or bowel movements. Blood in the stool may have a tarry or black appearance. (4) Shaking chills or fever greater than 100 degrees F. (5) The abdomen becomes more distended or swollen. (6) Bowel movements cease. (7) Failure to improve as expected. PAIN MEDICATION INJECTION: You have received an injection of a pain medication. You should experience significant pain relief within 45 minutes. This drug is a narcotic -- it will impair your judgement, slow your reaction time and make you sleepy (as well as relieve your pain). Narcotics also can cause nausea. You should not drive, work with machinery, or perform any task requiring mental alertness until all effects of the medication are gone -- six to eight hours. Do not take any alcohol, or sedatives, and do not take any other medication without checking with your physician. ANTINAUSEA MEDICATION: You have been given a medication to suppress nausea and vomiting. This type of medication can be given as a shot, pill, or suppository. It will usually last for many hours. Pills and shots usually last six to eight hours, suppositories last about 12 hours. For the typical illness, only one or two doses of the medication may be necessary. Mild lightheadedness may occur. This type of medicine can cause d rowsiness. Do not drive or operate dangerous machinery while under its influence. Do not mix with alcohol. See your doctor at once if you have muscle spasms or tightness, or uncontrollable motions (particularly of the neck, mouth, or jaw). Persistent vomiting or severe lightheadedness should also be evaluated by the physician. Intravenous (IV) Fluids As part of your care today, you received intravenous (IV) fluids. IV fluids are administered to patients who are dehydrated or to those who have certain chemical (electrolyte) abnormalities that need correcting. FOLLOW-UP CARE: If you have been referred to a physician for follow-up care, call the physician s office for an appointment as you were instructed or within the next two days. If you experience worsening or a significant change in your symptoms, notify the physician immediately or return to the Emergency Department at any time for re- evaluation. Prescriptions: Ondansetron [Zofran Odt 4 mg Tablet] 1 tab PO Q6H #15 tab.rapdis Forms: Elevated Blood Pressure Referrals: MAGDALENA SHAH PA-C [Primary Care Provider] - Follow up tomorrow
[2019-10-14] MEDS ORDERED: NORMAL SALINE 1000 ML 1,000 ML IV ONE (22:55)
[2019-10-14 23:03] LABS: ABSOLUTE LYMPHOCYTES (AUTO) 0.8 10^3/uL (0.5-4.7); ABSOLUTE MONOCYTES (AUTO) 0.7 10^3/uL (0.1-1.4); ABSOLUTE NEUT (AUTO) 10.1 10^3/uL (1.7-8.2); BASOPHILS % (AUTO) 0.3 % (0-2); EOSINOPHILS % (AUTO) 0.4 % (0-6); HEMATOCRIT 41.5 % (36.0-47.0); HEMOGLOBIN 14.3 g/dL (12.0-15.5); MEAN CORPUSCULAR HGB CONC 34.5 g/dL (32.0-36.0); MEAN CORPUSCULAR VOLUME 87 fl (80-97); MONOCYTES % (AUTO) 5.7 % (3-13); PLATELET COUNT 235 10^3/uL (150-450); RED BLOOD COUNT 4.78 10^6/uL (3.72-5.28); RED CELL DISTRIBUTION WIDTH 13.7 % (11.5-14.0); SEGMENTED NEUTROPHILS % (AUTO) 86.6 % (42-78); TOTAL CELLS COUNTED % (AUTO) 100 %; WHITE BLOOD COUNT 11.7 10^3/uL (4.0-10.5)
[2019-10-14 23:05] LABS: APPEARANCE,URINE SLIGHTLY-CLOUDY; BILIRUBIN,URINE NEGATIVE (NEGATIVE); COLOR,URINE YELLOW; GLUCOSE, URINE NEGATIVE (NEGATIVE); KETONES,URINE NEGATIVE (NEGATIVE); LEUKOCYTE ESTERASE,URINE TRACE (NEGATIVE); NITRITE,URINE NEGATIVE (NEGATIVE); PROTEIN,URINE NEGATIVE (NEGATIVE); URINE SPECIFIC GRAVITY 1.008; UROBILINOGEN,URINE NEGATIVE mg/dL (<2.0)
[2019-10-14 23:13] LABS: ALBUMIN 4.2 g/dL (3.5-5.0); ALKALINE PHOSPHATASE 64 U/L (38-126); ANION GAP 7 (5-19); ASPARTATE AMINO TRANSFERASE 25 U/L (14-36); BILIRUBIN,TOTAL 0.5 mg/dL (0.2-1.3); BLOOD UREA NITROGEN 13 mg/dL (7-20); CALCIUM 9.6 mg/dL (8.4-10.2); CARBON DIOXIDE 28 mmol/L (22-30); CHLORIDE 100 mmol/L (98-107); GLUCOSE 122 mg/dL (75-110); POTASSIUM 3.7 mmol/L (3.6-5.0)
[2019-10-14] MEDS ORDERED: MORPHINE SULFATE 10 MG/ML INJ IV ONE (23:14)
[2019-10-14] MEDS ORDERED: ONDANSETRON 4 MG TAB.RAPDIS PO ONE (23:24)
--- NOTE | 2019-10-15 02:30 | RADIOLOGY REPORT (SQ) ---
CT ABDOMEN AND PELVIS WITHOUT INTRAVENOUS CONTRAST: 10/15/2019 1:22 AM CDT HISTORY: 64-year old with abdominal pain, nausea, vomiting. COMPARISON: CT of abdomen and pelvis from 07/07/2019 TECHNIQUE: Axial contiguous images were obtained from the lung bases to the proximal femurs without intravenous contrast administered. Oral contrast was given to the patient. Sagittal and coronal reconstructions were also obtained and reviewed. This exam was performed according to our departmental dose-optimization program, which includes automated exposure control, adjustment of the mA and/or KV according to the patient's size and/or use of iterative reconstruction technique. FINDINGS: The lung bases appear clear without evidence of a focal consolidative airspace opacity or effusions. Evaluation of the solid organs is limited by the lack of intravenous contrast. The visualized hepatic parenchyma is unremarkable. The gallbladder is surgically absent. The spleen and pancreas are normal in contour. The bilateral adrenal glands appear unremarkable. Both kidneys demonstrate no evidence of hydronephrosis. No renal or ureteral calculi are seen. The urinary bladder is mildly distended, and appears grossly unremarkable. The uterus appears surgically absent. The stomach is distended with oral contrast. The small bowel loops appear unremarkable. No pericolonic inflammatory stranding is seen. There is no evidence of pneumoperitoneum or free fluid. The aorta and IVC appear normal in size. There is moderate atherosclerotic calcification of aorta and into the iliac arteries. No significantly enlarged lymph nodes are seen in the abdomen or pelvis. Review of the bone show no evidence of any suspicious lytic or blastic lesions. IMPRESSION: No acute process is seen within the abdomen or pelvis.
[2019-10-15 04:24] VITALS: BP 124/75
== END 2019-10-15 05:09 | disposition home or self-care (01) ==
LOC: ER 21:19
DX: R10.84 Generalized abdominal pain (principal); R10.819 Abdominal tenderness, unspecified site; R11.2 Nausea with vomiting, unspecified; I10 Essential (primary) hypertension; Z87.442 Personal history of urinary calculi; Z87.19 Personal history of other diseases of the digestive system; Z90.49 Acquired absence of other specified parts of digestive tract; Z90.710 Acquired absence of both cervix and uterus; Z91.041 Radiographic dye allergy status
CPT/HCPCS: 99284; 96361; 96374; 36415; 87086; 83690; 85025; 80053; 81001; 74176; A9270; J2270; J7030; S0119

== ENCOUNTER 2019-12-18 07:58 | Emergency (ER) | payer MEDICARE, MEDICAID ==
[2019-12-18 08:35] LABS: ABSOLUTE BASOPHILS # (AUTO) 0.1 10^3/uL (0.0-0.2); ABSOLUTE EOSINOPHILS # (AUTO) 0.1 10^3/uL (0.0-0.6); ABSOLUTE LYMPHOCYTES (AUTO) 1.5 10^3/uL (0.5-4.7); ABSOLUTE MONOCYTES (AUTO) 0.4 10^3/uL (0.1-1.4); ABSOLUTE NEUT (AUTO) 4.4 10^3/uL (1.7-8.2); BASOPHILS % (AUTO) 0.9 % (0-2); EOSINOPHILS % (AUTO) 1.7 % (0-6); HEMATOCRIT 38.7 % (36.0-47.0); HEMOGLOBIN 13.6 g/dL (12.0-15.5); LYMPHOCYTES % (AUTO) 23.1 % (13-45); MEAN CORPUSCULAR HEMOGLOBIN 30.1 pg (27.0-33.4); MEAN CORPUSCULAR VOLUME 86 fl (80-97); MONOCYTES % (AUTO) 6.4 % (3-13); PLATELET COUNT 245 10^3/uL (150-450); RED BLOOD COUNT 4.51 10^6/uL (3.72-5.28); RED CELL DISTRIBUTION WIDTH 14.1 % (11.5-14.0); SEGMENTED NEUTROPHILS % (AUTO) 67.9 % (42-78); TOTAL CELLS COUNTED % (AUTO) 100 %; WHITE BLOOD COUNT 6.4 10^3/uL (4.0-10.5)
--- NOTE | 2019-12-18 08:39 | RADIOLOGY REPORT (SQ) ---
EXAM DESCRIPTION: CHEST SINGLE VIEW IMAGES COMPLETED DATE/TIME: 12/18/2019 8:22 am REASON FOR STUDY: bed 18 chest pain COMPARISON: 10/10/2019 EXAM PARAMETERS: NUMBER OF VIEWS: One view. TECHNIQUE: Single frontal radiographic view of the chest acquired. RADIATION DOSE: NA LIMITATIONS: None. FINDINGS: LUNGS AND PLEURA: Minimal linear asymmetric opacity in the right lung base consistent with atelectasis. Lung veloz are otherwise clear. No pneumothorax. MEDIASTINUM AND HILAR STRUCTURES: No masses. Contour normal. HEART AND VASCULAR STRUCTURES: Heart normal in size. Normal vasculature. BONES: No acute findings. HARDWARE: None in the chest. OTHER: No other significant finding. IMPRESSION: Minimal right basilar atelectasis. No other significant findings. TECHNICAL DOCUMENTATION: JOB ID: [id number] 2010 [employer]- All Rights Reserved Reading location - IP/workstation name: [email or web address]
[2019-12-18 08:50] LABS: ALBUMIN 4.4 g/dL (3.5-5.0); ALKALINE PHOSPHATASE 98 U/L (38-126); ANION GAP 10 (5-19); ASPARTATE AMINO TRANSFERASE 32 U/L (14-36); BILIRUBIN,DIRECT 0.2 mg/dL (0.0-0.4); BILIRUBIN,TOTAL 0.6 mg/dL (0.2-1.3); BLOOD UREA NITROGEN 12 mg/dL (7-20); CARBON DIOXIDE 28 mmol/L (22-30); CHLORIDE 99 mmol/L (98-107); CREATINE KINASE 43 U/L (30-135); GLUCOSE 140 mg/dL (75-110); POTASSIUM 4.1 mmol/L (3.6-5.0); TOTAL PROTEIN 7.5 g/dL (6.3-8.2)
[2019-12-18 09:09] LABS: APPEARANCE,URINE SLIGHTLY-CLOUDY; BILIRUBIN,URINE NEGATIVE (NEGATIVE); COLOR,URINE YELLOW; GLUCOSE, URINE NEGATIVE (NEGATIVE); KETONES,URINE NEGATIVE (NEGATIVE); PROTEIN,URINE NEGATIVE (NEGATIVE); URINE SPECIFIC GRAVITY 1.009; UROBILINOGEN,URINE NEGATIVE mg/dL (<2.0)
[2019-12-18 09:13] LABS: CREATINE KINASE MB < 0.22 ng/mL (<4.55); TROPONIN I < 0.012 ng/mL
[2019-12-18] MEDS ORDERED: MORPHINE SULFATE 10 MG/ML INJ IV ONE ×4 (10:47→15:07)
--- NOTE | 2019-12-18 11:43 | RADIOLOGY REPORT (SQ) ---
EXAM DESCRIPTION: CT CHEST WITHOUT IMAGES COMPLETED DATE/TIME: 12/18/2019 11:01 am REASON FOR STUDY: cp COMPARISON: Chest radiograph 12/18/2019 TECHNIQUE: CT scan performed of the chest without intravenous contrast. Images reviewed with lung, soft tissue and bone windows. Reconstructed coronal and sagittal MPR images reviewed. All images st ored on PACS. All CT scanners at this facility use dose modulation, iterative reconstruction, and/or weight based d osing when appropriate to reduce radiation dose to as low as reasonably achievable (ALARA). [facility]: Dose Right [facility]: CareDose [facility]: Dose Right [facility]: Teradose 4D [facility]: Smart [employer] RADIATION DOSE: CT Rad equipment meets quality standard of care and radiation dose reduction techniq ues were employed. CTDIvol: 14.6 mGy. DLP: 516 mGy-cm. mGy. LIMITATIONS: No technical limitations. 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 No masses, infiltra meenu, or pneumothorax. No pleural effusions or pleural calcifications. HILAR AND MEDIASTINAL STRUCTURES: Scattered mediastinal lymph nodes, the largest of which measures on the order of 1.3 x 1.3 cm in the AP window ; increased central density suggests early calcification as may be seen in the setting of previous granulomatous process. No masses. HEART AND VASCULAR STRUCTURES: No aneurysm. No pericardial effusion. UPPER ABDOMEN: No significant findings. Limited exam. THYROID AND OTHER SOFT TISSUES: No masses. No adenopathy. BONES: No significant finding. HARDWARE: None in the chest. OTHER: No other significant findings. IMPRESSION: No evidence of acute cardiopulmonary abnormality. Chronic and incidental findings as de tailed above. TECHNICAL DOCUMENTATION: JOB ID: [id number] Quality ID # [id number]: Final reports with documentation of one or more dose reduction techniques (e.g., Au tomated exposure control, adjustment of the mA and/or kV according to patient size, use of iterative reconstruction technique) 2010 [email or web address]- All Rights Reserved Reading location - IP/workstation name: [email or web address]
--- NOTE | 2019-12-18 12:24 | EKG REPORT ---
SEVERITY:- ABNORMAL ECG - ATRIAL FIBRILLATION BORDERLINE T ABNORMALITIES, DIFFUSE LEADS : Confirmed by: Martir Molina MD 18-Dec-2019 12:24:12
--- NOTE | 2019-12-18 13:45 | RADIOLOGY REPORT (SQ) ---
EXAM DESCRIPTION: CT ABD/PELVIS NO ORAL OR IV IMAGES COMPLETED DATE/TIME: 12/18/2019 1:30 pm REASON FOR STUDY: epi pain COMPARISON: 10/15/2019 TECHNIQUE: CT scan of the abdomen and pelvis performed without intravenous or oral contrast. Images reviewed with lung, soft tissue, and bone windows. Reconstructed coronal and sagittal MPR images revi ewed. All images stored on PACS. All CT scanners at this facility use dose modulation, iterative reconstruction, and/or weight based d osing when appropriate to reduce radiation dose to as low as reasonably achievable (ALARA). [facility]: Dose Right [facility]: CareDose [facility]: Dose Right [facility]: Teradose 4D [facility]: Smart [employer] RADIATION DOSE: CT Rad equipment meets quality standard of care and radiation dose reduction techniq ues were employed. CTDIvol: 11.6 mGy. DLP: 626 mGy-cm.mGy. LIMITATIONS: None. FINDINGS: LOWER CHEST: No significant findings. No nodules or infiltrates. NON-CONTRASTED LIVER, SPLEEN, ADRENALS: Evaluation limited by lack of IV contrast. No identified sign ificant masses. PANCREAS: No masses. No peripancreatic inflammatory changes. GALLBLADDER: Surgically absent. RIGHT KIDNEY AND URETER: No suspicious masses. Assessment limited by lack of IV contrast. No signif icant calcifications. No hydronephrosis or hydroureter. LEFT KIDNEY AND URETER: No suspicious masses. Assessment limited by lack of IV contrast. No signifi cant calcifications. No hydronephrosis or hydroureter. AORTA AND RETROPERITONEUM: No aneurysm. No retroperitoneal masses or adenopathy. BOWEL AND PERITONEAL CAVITY: No obvious masses or inflammatory changes. No free fluid. APPENDIX: Not identified. PELVIS, BLADDER, AND ABDOMINAL WALL:No abnormal masses. No free fluid. Bladder normal. BONES: No significant findings. OTHER: No other significant finding. IMPRESSION: NO SIGNIFICANT OR ACUTE PROCESS IN THE ABDOMEN OR PELVIS. COMMENT: Quality ID # [id number]: Final reports with documentation of one or more dose reduction techniques (e.g., Automated exposure control, adjustment of the mA and/or kV according to patient size, use of iterative reconstruction technique) TECHNICAL DOCUMENTATION: JOB ID: [id number] 2010 [employer]- All Rights Reserved Reading location - IP/workstation name: [email or web address]
[2019-12-18] MEDS ORDERED: ONDANSETRON HCL INJ/PF 4 MG/2 ML SDV IV ONE (14:01)
[2019-12-18] MEDS ORDERED: ONDANSETRON HCL INJ/PF 4 MG/2 ML SDV ONE (14:02)
--- NOTE | 2019-12-18 15:06 | ER Document Report ---
ED Cardiac - General Chief Complaint: Chest Pain Stated Complaint: CHEST PAIN Time Seen by Provider: 12/18/19 09:29 Primary Care Provider: MAGDALENA SHAH PA-C [Primary Care Provider] - Follow up as needed Information source: Patient TRAVEL OUTSIDE OF THE [place] IN LAST 30 DAYS: No - HPI Notes: Patient complains of epigastric pain. She does have a chronic history of epigastric pain and chest pain with negative work-ups in the past. She did have a upper endoscopy 5 days ago without any significant findings that I can ascertain. She states since that time she has had decreased appetite and has had some persistent epigastric pain. She states this pain is been present since the EGD but does occur intermittently. Nothing appears to make it better or worse. It is located in the epigastric area and radiates up into the chest. Some nausea. No problems with stool. The pain is sharp and burning. She did have a outpatient stress test today scheduled with cardiology but came here because of the pain. - Related Data Allergies/Adverse Reactions: Iodinated Contrast Media [Iodinated Contrast- Oral and IV Dye] Allergy (Intermediate, Verified 10/26/18 23:56) IVP dye Allergy (Intermediate, Uncoded 08/26/18 08:55) rash Past Medical History - General Information source: Patient - Social History Smoking Status: Former Smoker Frequency of alcohol use: None Drug Abuse: None Family History: Reviewed & Not Pertinent, CAD, CVA, Malignancy - Past Medical History Cardiac Medical History: Reports: Hx Hypercholesterolemia, Hx Hypertension Pulmonary Medical History: Reports: Hx Pneumonia Denies: Hx Asthma, Hx Bronchitis, Hx COPD, Hx Respiratory Failure, Hx Sleep Apnea, Hx Tuberculosis Neurological Medical History: Reports: Hx Cerebrovascular Accident - Patient reports "mini stroke". Denies: Hx Parkinson's Disease Endocrine Medical History: Denies: Hx Diabetes Mellitus Type 1, Hx Diabetes Mellitus Type 2 Renal/ Medical History: Reports: Hx Kidney Stones. Denies: Hx End Stage Renal Disease, Hx Ovarian Cysts, Hx Peritoneal Dialysis Malignancy Medical History: Denies: Hx Breast Cancer, Hx Cervical Cancer, Hx Leukemia, Hx Lung Cancer, Hx Ovarian Cancer GI Medical History: Reports: Hx Gastroesophageal Reflux Disease, Hx Hiatal Hernia, Hx Ulcer. Denies: Hx Crohn's Disease, Hx Irritable Bowel, Hx Liver Failure, Hx Pancreatitis Musculoskeletal Medical History: Reports Hx Arthritis, Denies Hx Fibromyalgia, Denies Hx Multiple Sclerosis, Denies Hx Muscular Dystrophy Psychiatric Medical History: Reports: Hx Depression, Hx Post Traumatic Stress Disorder Denies: Hx Bipolar Disorder, Hx Dementia, Hx Schizophrenia Traumatic Medical History: Reports: Hx Fractures - left wrist Infectious Medical History: Denies: Hx HIV Past Surgical History: Reports: Hx Abdominal Surgery - Hernia mesh placed, Hx Ad enoidectomy, Hx Appendectomy, Hx Bowel Surgery, Hx Cholecystectomy, Hx Hysterectomy, Hx Orthopedic Surgery - carpal tunnel, Other - Sigmoid colectomy, rectopexy Dr. Fowler 2013; abdominal wall hernia surg. Denies: Hx Section, Hx Colostomy, Hx Coronary Artery Bypass Graft, Hx Gastric Bypass Surgery, Hx Herniorrhaphy, Hx Mastectomy, Hx Pacemaker, Hx Tonsillectomy, Hx Tubal Ligation - Immunizations Hx Diphtheria, Pertussis, Tetanus Vaccination: Yes Hx Pneumococcal Vaccination: 01/17/18 Review of Systems - Review of Systems Constitutional: denies: Chills, Fever Cardiovascular: Chest pain. denies: Palpitations Gastrointestinal: Abdominal pain, Nausea -: Yes All other systems reviewed and negative Physical Exam - Vital signs Vitals: Pulse Ox 97 12/18/19 08:00 Interpretation: Normal - General General appearance: Appears well, Alert - HEENT Head: Normocephalic, Atraumatic Eyes: Normal Pupils: PERRL - Respiratory Respiratory status: No respiratory distress Chest status: Nontender Breath sounds: Normal Chest palpation: Normal - Cardiovascular Rhythm: Regular Heart sounds: Normal auscultation Murmur: No - Abdominal Inspection: Normal Distension: No distension Bowel sounds: Normal Tenderness: Tender - Patient is moderately tender in the epigastric area without rebound or guarding. Organomegaly: No organomegaly - Back Back: Normal, Nontender - Extremities General upper extremity: Normal inspection, Nontender, Normal color, Normal ROM, Normal temperature General lower extremity: Normal inspection, Nontender, Normal color, Normal ROM, Normal temperature, Normal weight bearing. No: Sam's sign - Neurological Neuro grossly intact: Yes Cognition: Normal Orientation: AAOx4 [place] Coma Scale Eye Opening: Spontaneous [place] Coma Scale Verbal: Oriented [place] Coma Scale Motor: Obeys Commands Familia Coma Scale Total: 15 Speech: Normal Motor strength normal: LUE, RUE, LLE, RLE Sensory: Normal - Psychological Associated symptoms: Normal affect, Normal mood - Skin Skin Temperature: Warm Skin Moisture: Dry Skin Color: Normal Course - Re-evaluation Re-evalutation: 12/18/19 15:04 Patient presents with epigastric pain. 2 sets of enzymes are negative. There is no ischemic changes on EKG. CT of the chest and of the abdomen is unremarkable. Blood work is also essentially unremarkable. I did call and discussed the case with the patient's photo lab technician, Dr. Arreguin. He states he will see the patient in the office tomorrow and will set up a another stress test at that time. He does not believe the patient would benefit from inpatient admission nor do I. - Vital Signs Vital signs: Temp Pulse Resp BP Pulse Ox 98.5 F 13 137/74 H 96 12/18/19 08:38 12/18/19 14:02 12/18/19 14:02 12/18/19 14:02 - Laboratory Result Diagrams: 12/18/19 08:19 12/18/19 08:19 Laboratory results interpreted by me: 12/18/19 12/18/19 12/18/19 08:19 08:19 08:45 RDW 14.1 H Glucose 140 H Leukocyte Esterase Rfl TRACE H - Diagnostic Test Radiology reviewed: Image reviewed, Reports reviewed - EKG Interpretation by Me EKG shows normal: Sinus rhythm Rate: Normal - 95 Rhythm: NSR [place]/QRS: No: Right axis deviation, Left axis deviation Discharge - Discharge Clinical Impression: Epigastric pain Condition: Stable Disposition: HOME, SELF-CARE Instructions: Abdominal Pain ([facility]), Chest Pain of Unclear Cause ([facility]), Oral Narcotic Medication ([facility]) Additional Instructions: Please go to Dr. Arreguin's office tomorrow Prescriptions: Hydrocodone/Acetaminophen [[place] 5-325 mg Tablet] 1 tab PO Q6 PRN 3 Days #12 tablet PRN Reason: Forms: Return to Work Referrals: WILL ARREGUIN MD [ACTIVE STAFF] - Follow up tomorrow
[2019-12-18] MEDS ORDERED: LIDOCAINE 2% VISCOUS SOLN 15 ML UDCUP PO ONE (15:07)
[2019-12-18] MEDS ORDERED: METOCLOPRAMIDE HCL ORAL SOLN 10 MG/10 ML UDCUP PO ONE (15:07)
[2019-12-18] MEDS ORDERED: MAG HYDROX/AL HYDROX/SIMETH SUSP 30 ML UDCUP PO ONE (15:07)
[2019-12-18 15:41] VITALS: BP 111/62
== END 2019-12-18 15:50 | disposition home or self-care (01) ==
LOC: ER 07:58
DX: R10.13 Epigastric pain (principal); R10.816 Epigastric abdominal tenderness; J98.11 Atelectasis; R63.0 Anorexia; R07.9 Chest pain, unspecified; R11.0 Nausea; I10 Essential (primary) hypertension; Z98.890 Other specified postprocedural states; Z91.041 Radiographic dye allergy status; Z87.891 Personal history of nicotine dependence; Z87.01 Personal history of pneumonia (recurrent); Z87.19 Personal history of other diseases of the digestive system; Z90.49 Acquired absence of other specified parts of digestive tract; Z90.710 Acquired absence of both cervix and uterus
CPT/HCPCS: 93005; 96376; 99285; 96374; 96375; 36415; 87086; 82553; 82550; 83690; 85025; 87088; 80053; 81001; 84484; 87186; 71045; 71250; 74176; 93010; J3490; A9270 ×2; J2270; J2405

== ENCOUNTER 2019-12-20 01:37 | Observation (INO) | payer MEDICARE, MEDICAID ==
[2019-12-20 06:13] LABS: ABSOLUTE EOSINOPHILS # (AUTO) 0.1 10^3/uL (0.0-0.6); ABSOLUTE LYMPHOCYTES (AUTO) 1.1 10^3/uL (0.5-4.7); ABSOLUTE MONOCYTES (AUTO) 0.4 10^3/uL (0.1-1.4); ABSOLUTE NEUT (AUTO) 5.2 10^3/uL (1.7-8.2); BASOPHILS % (AUTO) 0.6 % (0-2); EOSINOPHILS % (AUTO) 1.1 % (0-6); HEMATOCRIT 42.4 % (36.0-47.0); HEMOGLOBIN 14.6 g/dL (12.0-15.5); LYMPHOCYTES % (AUTO) 16.5 % (13-45); MEAN CORPUSCULAR HGB CONC 34.5 g/dL (32.0-36.0); MEAN CORPUSCULAR VOLUME 87 fl (80-97); MONOCYTES % (AUTO) 5.9 % (3-13); PLATELET COUNT 251 10^3/uL (150-450); RED BLOOD COUNT 4.88 10^6/uL (3.72-5.28); RED CELL DISTRIBUTION WIDTH 14.1 % (11.5-14.0); SEGMENTED NEUTROPHILS % (AUTO) 75.9 % (42-78); TOTAL CELLS COUNTED % (AUTO) 100 %; WHITE BLOOD COUNT 6.8 10^3/uL (4.0-10.5)
[2019-12-20] MEDS ORDERED: MORPHINE SULFATE 10 MG/ML INJ IV ONE ×2 (06:24→07:21)
[2019-12-20] MEDS ORDERED: NORMAL SALINE 1000 ML 1,000 ML IV ONE (06:25)
[2019-12-20] MEDS ORDERED: ONDANSETRON HCL INJ/PF 4 MG/2 ML SDV IV ONE ×2 (06:26→07:52)
--- NOTE | 2019-12-20 06:39 | ER Document Report ---
ED GI/ - General Chief Complaint: Abdominal Pain Stated Complaint: ABDOMINAL PAIN Time Seen by Provider: 12/20/19 06:07 Primary Care Provider: WILL ARREGUIN MD [Primary Care Provider] - Follow up as needed Information source: Patient TRAVEL OUTSIDE OF THE [place] IN LAST 30 DAYS: No - HPI Patient complains to provider of: Abdominal pain, Dysuria, Vomiting. No: Diarrhea Onset: Yesterday Timing/Duration: Gradual Location: Epigastric Associated symptoms: Chest pain, Constipation, Dysuria, Vomiting Similar symptoms previously: Yes - Similar symptoms with previous SBO Notes: 12/20/19 06:40 Patient is a 64-year-old female with a past medical history of SBO and recent endoscopy who presents with epigastric pain. States that she was here several days ago and the pain had improved. This morning she woke with vomiting and significant epigastric pain. Patient tried to take a hydrocodone but had emesis afterward. Last bowel movement was 4 days ago which is not normal for her. She has been passing some slight gas. Also mentions dysuria and feelings of difficulty urinating. No fevers. States this feels like her previous SBO. She has had a cholecystectomy, hernia repair, hysterectomy in the past. 12/20/19 07:28 - Related Data Allergies/Adverse Reactions: Iodinated Contrast Media [Iodinated Contrast- Oral and IV Dye] Allergy (Intermediate, Verified 10/26/18 23:56) IVP dye Allergy (Intermediate, Uncoded 08/26/18 08:55) rash Past Medical History - General Information source: Patient - Social History Smoking Status: Never Smoker Frequency of alcohol use: None Drug Abuse: None Family History: Reviewed & Not Pertinent, CAD, CVA, Malignancy - Past Medical History Cardiac Medical History: Reports: Hx Hypercholesterolemia, Hx Hypertension Pulmonary Medical History: Reports: Hx Pneumonia Denies: Hx Asthma, Hx Bronchitis, Hx COPD, Hx Respiratory Failure, Hx Sleep Apnea, Hx Tuberculosis Neurological Medical History: Reports: Hx Cerebrovascular Accident - Patient reports "mini stroke". Denies: Hx Parkinson's Disease Endocrine Medical History: Denies: Hx Diabetes Mellitus Type 1, Hx Diabetes Mellitus Type 2 Renal/ Medical History: Reports: Hx Kidney Stones. Denies: Hx End Stage Renal Disease, Hx Ovarian Cysts, Hx Peritoneal Dialysis Malignancy Medical History: Denies: Hx Breast Cancer, Hx Cervical Cancer, Hx Leukemia, Hx Lung Cancer, Hx Ovarian Cancer GI Medical History: Reports: Hx Gastroesophageal Reflux Disease, Hx Hiatal Hernia, Hx Ulcer. Denies: Hx Crohn's Disease, Hx Irritable Bowel, Hx Liver Failure, Hx Pancreatitis Musculoskeletal Medical History: Reports Hx Arthritis, Denies Hx Fibromyalgia, Denies Hx Multiple Sclerosis, Denies Hx Muscular Dystrophy Psychiatric Medical History: Reports: Hx Depression, Hx Post Traumatic Stress Disorder Denies: Hx Bipolar Disorder, Hx Dementia, Hx Schizophrenia Traumatic Medical History: Reports: Hx Fractures - left wrist Infectious Medical History: Denies: Hx HIV Past Surgical History: Reports: Hx Abdominal Surgery - Hernia mesh placed, Hx Adenoidectomy, Hx Appendectomy, Hx Bowel Surgery, Hx Cholecystectomy, Hx Hysterectomy, Hx Orthopedic Surgery - carpal tunnel, Other - Sigmoid colectomy, rectopexy Dr. Fowler 2013; abdominal wall hernia surg. Denies: Hx Section, Hx Colostomy, Hx Coronary Artery Bypass Graft, Hx Gastric Bypass Surgery, Hx Herniorrhaphy, Hx Mastectomy, Hx Pacemaker, Hx Tonsillectomy, Hx Tubal Ligation - Immunizations Hx Diphtheria, Pertussis, Tetanus Vaccination: Yes Hx Pneumococcal Vaccination: 01/17/18 Review of Systems - Review of Systems Constitutional: No symptoms reported EENT: No symptoms reported Cardiovascular: Chest pain. denies: Syncope, Edema Respiratory: No symptoms reported Gastrointestinal: Abdominal pain, Nausea, Vomiting, Constipation, Poor appetite, Poor fluid intake Genitourinary: Dysuria Female Genitourinary: No symptoms reported Musculoskeletal: No symptoms reported Skin: No symptoms reported Neurological/Psychological: No symptoms reported -: Yes All other systems reviewed and negative Physical Exam - Vital signs Vitals: Temp Pulse Resp BP Pulse Ox 98.4 F 93 16 139/93 H 96 12/20/19 02:14 12/20/19 02:14 12/20/19 02:14 12/20/19 02:14 12/20/19 02:14 Interpretation: Normal - General General appearance: Appears well - Appears well but is uncomfortable due to the pain. - HEENT Head: Normocephalic Eyes: Normal Conjunctiva: Normal Ears: Normal - Respiratory Respiratory status: No respiratory distress Chest status: Nontender. No: Accessory muscle use, Prolonged expirations Breath sounds: Normal - Abdominal Distension: No distension Bowel sounds: Hyperactive Tenderness: Tender - Discomfort to palpation in epigastric region - Extremities General upper extremity: Normal inspection General lower extremity: Normal inspection - Neurological Orientation: AAOx4 - Psychological Associated symptoms: Normal affect, Normal mood - Skin Skin Temperature: Warm Skin Moisture: Dry Skin Color: Normal Course - Re-evaluation Re-evalutation: 12/20/19 06:48 CT scan was obtained as she has a history of SBO and states this feels similar. Pain and nausea medication ordered. Will continue to monitor 12/20/19 07:29 I was notified of patient having continued pain, will reassess and order another dose of pain medication. Patient's previous visit on 12/17 and a urine culture obtained which is a preliminary result of gram-negative bacteria. She has bacteria, positive nitrites, positive leukocyte esterase on her UA today with dysuria and abdominal pain. I am concerned that this could be pyelonephritis causing her pain and vomiting. She will need to be admitted for antibiotic treatment and pain and nausea control. 12/20/19 10:53 CT was negative for SBO. Labwork was reviewed. Final culture showed Klebsiella pneumoniae. Discussed with hospitalist who will admit. Patient is very agreeable to the plan. - Vital Signs Vital signs: Temp Pulse Resp BP Pulse Ox 98.2 F 93 18 128/84 H 98 12/20/19 07:10 12/20/19 02:14 12/20/19 10:01 12/20/19 10:00 12/20/19 10:01 - Laboratory Result Diagrams: 12/20/19 07:07 12/20/19 07:07 Laboratory results interpreted by me: 12/20/19 12/20/19 12/20/19 05:55 06:15 07:07 RDW 14.1 H Potassium 3.4 L Direct Bilirubin 0.5 H AST 41 H Urine Ketones 20 H Urine Blood SMALL H Urine Nitrite POSITIVE H Ur Leukocyte Esterase MODERATE H - Diagnostic Test Radiology reviewed: Image reviewed, Reports reviewed - EKG Interpretation by Me Rate: Normal Rhythm: NSR When compared to previous EKG there are: No significant change Additional EKG results interpreted by me: 12/20/19 07:49 Rate 80. Appears normal sinus rhythm but consider atrial fibrillation with artifact. QTC 439. No acute ST changes. Discharge - Discharge Clinical Impression: Urinary tract infection Qualifiers: Urinary tract infection type: acute pyelonephritis Qualified Code(s): N10 - Acute pyelonephritis Vomiting Qualifiers: Vomiting type: unspecified Vomiting Intractability: intractable Nausea presence: with nausea Qualified Code(s): R11.2 - Nausea with vomiting, unspecified Abdominal pain Qualifiers: Abdominal location: epigastric Qualified Code(s): R10.13 - Epigastric pain Condition: Good Disposition: ADMITTED OBSERVATION Admitting Provider: [facility] Unit Admitted: Medical Floor Referrals: WILL ARREGUIN MD [Primary Care Provider] - Follow up as needed
[2019-12-20 07:07] LABS: APPEARANCE,URINE SLIGHTLY-CLOUDY; BILIRUBIN,URINE NEGATIVE (NEGATIVE); COLOR,URINE YELLOW; GLUCOSE, URINE NEGATIVE (NEGATIVE); KETONES,URINE 20 mg/dL (NEGATIVE); LEUKOCYTE ESTERASE,URINE MODERATE (NEGATIVE); NITRITE,URINE POSITIVE (NEGATIVE); PROTEIN,URINE NEGATIVE (NEGATIVE); URINE SPECIFIC GRAVITY 1.014; UROBILINOGEN,URINE NEGATIVE mg/dL (<2.0)
[2019-12-20 07:25] LABS: ABSOLUTE EOSINOPHILS # (AUTO) 0.1 10^3/uL (0.0-0.6); ABSOLUTE MONOCYTES (AUTO) 0.4 10^3/uL (0.1-1.4); ABSOLUTE NEUT (AUTO) 4.1 10^3/uL (1.7-8.2); BASOPHILS % (AUTO) 0.4 % (0-2); EOSINOPHILS % (AUTO) 1.1 % (0-6); HEMOGLOBIN 13.2 g/dL (12.0-15.5); MEAN CORPUSCULAR HEMOGLOBIN 29.5 pg (27.0-33.4); MEAN CORPUSCULAR HGB CONC 33.8 g/dL (32.0-36.0); MEAN CORPUSCULAR VOLUME 87 fl (80-97); MONOCYTES % (AUTO) 6.4 % (3-13); PLATELET COUNT 237 10^3/uL (150-450); RED BLOOD COUNT 4.47 10^6/uL (3.72-5.28); SEGMENTED NEUTROPHILS % (AUTO) 74.1 % (42-78); TOTAL CELLS COUNTED % (AUTO) 100 %; WHITE BLOOD COUNT 5.6 10^3/uL (4.0-10.5)
[2019-12-20] MEDS ORDERED: CEFTRIAXONE 1 GM/D5W RTU 1 GM/50 ML RTUPB IV ONE (07:45)
--- NOTE | 2019-12-20 07:46 | EKG REPORT ---
SEVERITY:- DEFECTIVE ECG - REGULAR RHYTHM WITH SEVERE BASELINE DISTORTION., SUSPECT ITS SINUS RHYTHM PROBABLE INFERIOR INFARCT, AGE INDETERMINATE : Confirmed by: Martir Molina MD 20-Dec-2019 07:45:42
--- NOTE | 2019-12-20 07:51 | RADIOLOGY REPORT (SQ) ---
EXAM: CT abdomen and pelvis without intravenous contrast CLINICAL DATA: 64-year-old female with upper abdominal pain and vomiting and history of small bowel obstruction TECHNICAL DATA: Axial CT imaging of the abdomen and pelvis was performed without oral or intravenous contrast. Sagittal and coronal reconstructed images were then performed. The CT study is performed according to ALARA (as low as reasonably achievable) or ALARA/IMAGE GENTLY, with automatic adjustment of mA and/or kV according to patient size. Performed on: 12/20/2019 at 7:21 AM Comparison: Prior CT abdomen and pelvis performed on 12/18/2019. FINDINGS: Lung bases: The lung bases are clear. There is minimal bibasilar atelectasis and/or fibrosis. Liver:The liver is normal in size and configuration. No focal hepatic abnormalities are appreciated on this unenhanced scan. Liver attenuation is within normal limits. Spleen:The spleen is normal is size, configuration and attenuation. No focal splenic abnormalities are appreciated on this unenhanced scan. Gallbladder and bile duct: The gallbladder is surgically absent. The common bile duct is mildly dilated likely the result of a prior cholecystectomy. Pancreas: The pancreas is grossly normal in size and configuration. Adrenal Glands:The adrenal glands are normal in size and configuration. Kidneys:The kidneys are normal in size and configuration. There is no evidence of hydronephrosis. There is no evidence of nephrolithiasis. No focal renal abnormalities are identified. 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 Stomach:The stomach is grossly normal. There is no definite hiatal hernia. Bowel:The bowel gas pattern is non specific and non obstructive. There are postsurgical changes in the region of the sigmoid colon. There is no evidence of bowel dilatation or bowel wall thickening. Appendix: The appendix is not definitely visualized and may be surgically absent. Free air:There is no evidence of free air. Free fluid: There is no evidence of free fluid. Vasculature: The aorta is normal in caliber and contour. There are mild atherosclerotic calcifications along the abdominal aorta. The inferior vena cava is grossly unremarkable. Lymphadenopathy: No pathologic lymphadenopathy is identified. Bladder: The bladder is well distended and smooth in contour. Reproductive: The uterus is surgically absent. Bones: No acute osseous abnormalities are identified. Soft tissues: No focal soft tissue abnormalities are identified. IMPRESSION: 1. Normal unenhanced CT scan of the abdomen and pelvis. There is no evidence of urinary tract calcification or urinary tract obstruction. 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 2. No evidence of bowel obstruction or other acute bowel pathology on this unenhanced scan. 3. Remote cholecystectomy and hysterectomy.
[2019-12-20 08:07] LABS: ALBUMIN 4.3 g/dL (3.5-5.0); ALKALINE PHOSPHATASE 100 U/L (38-126); ANION GAP 10 (5-19); ASPARTATE AMINO TRANSFERASE 41 U/L (14-36); BILIRUBIN,DIRECT 0.5 mg/dL (0.0-0.4); BILIRUBIN,TOTAL 0.7 mg/dL (0.2-1.3); BLOOD UREA NITROGEN 14 mg/dL (7-20); CALCIUM 8.4 mg/dL (8.4-10.2); CARBON DIOXIDE 30 mmol/L (22-30); CHLORIDE 98 mmol/L (98-107); GLUCOSE 103 mg/dL (75-110); POTASSIUM 3.4 mmol/L (3.6-5.0)
--- NOTE | 2019-12-20 09:16 | RADIOLOGY REPORT (SQ) ---
EXAM DESCRIPTION: CHEST SINGLE VIEW IMAGES COMPLETED DATE/TIME: 12/20/2019 8:43 am REASON FOR STUDY: chest pain and abdominal pain COMPARISON: 12/18/2019 EXAM PARAMETERS: NUMBER OF VIEWS: One view. TECHNIQUE: Single frontal radiographic view of the chest acquired. RADIATION DOSE: NA LIMITATIONS: None. FINDINGS: LUNGS AND PLEURA: No opacities, masses or pneumothorax. No pleural effusion. MEDIASTINUM AND HILAR STRUCTURES: No masses. Contour normal. HEART AND VASCULAR STRUCTURES: Heart normal in size. Normal vasculature. BONES: No acute findings. HARDWARE: None in the chest. OTHER: No other significant finding. IMPRESSION: NO ACUTE RADIOGRAPHIC FINDING IN THE CHEST. TECHNICAL DOCUMENTATION: JOB ID: [id number] 2010 [employer]- All Rights Reserved Reading location - IP/workstation name: [email or web address]
[2019-12-20] MEDS ORDERED: METOCLOPRAMIDE HCL INJ/PF 10 MG/2 ML SDV IV ONE (09:34)
[2019-12-20] MEDS ORDERED: PANTOPRAZOLE SODIUM 40 MG VIAL IV ONE (10:42)
[2019-12-20] MEDS: METOCLOPRAMIDE HCL 10 MG TABLET PO SCH ×3 (11:20→21:40)
[2019-12-20] MEDS: PANTOPRAZOLE SODIUM 40 MG VIAL IV SCH ×2 (11:21→21:39)
[2019-12-20] MEDS: ONDANSETRON HCL INJ/PF 4 MG/2 ML SDV IV PRN ×2 (12:28→19:49)
[2019-12-20] MEDS: ACETAMINOPHEN 325 MG TABLET PO PRN ×2 (12:30→19:49)
--- NOTE | 2019-12-20 13:13 | PDOC H&P ---
History of Present Illness Admission Date/PCP: 12/20/19 09:54 WILL ARREGUIN MD History of Present Illness: CARMEN HORTON is a 64 year old woman with PMH of HTN, HLD, GERD, multiple abdominal surgeries complicated by history of multiple small bowel obstructions and depression/anxiety, who presents with chief complaint of nausea/vomiting and abdominal pain. She reports that, for approximately 10 days, she has had poor appetite and very little oral intake due to persistent nausea and epigastric abdominal pain. Her pain is sharp/stabbing/burning in quality. It does not radiate. She has chronic constipation which is unchanged from baseline and chronic lower back pain which is also unchanged. She had an upper endoscopy performed by Dr. Shane Brush at [facility] on 12/13/2019 which showed non-bleeding erosive gastropathy and small hiatal hernia. She takes multiple GI medications from chronic, poorly controlled GERD. She does take a daily baby aspirin but no NSAIDs. She has never smoked and does not drink alcohol. She presented to the ED on 12/18/2019, had normal labs/imaging and was sent home. Over the last 2 days, she has developed recurrent vomiting with any oral intake. Yesterday, she notes that she had a scant amount of bright red blood in her vomitus. This morning, she states that her vomit appeared to look like "coffee grounds." The pain has steadily worsened throughout the last 10 days, and she has been unable to tolerate any oral medications for several days. Denies recent weight loss. She also notes that over the last 4 days, she has had subjective fevers, chills and rigors. She has developed lower abdominal pain that is dull and aching. She has dysuria and urgency, but denies urinary frequency. She checks her temperature at home, and the highest it has been is 100.2 degrees F. She has had no sick contacts. She denies diarrhea. She had a UA/UC performed at her last ED visit on 12/17 which showed +Klebsiella. At baseline, Ms. Horton ambulates using a rolling walker at home and with a cane outdoors. She still drives, goes grocery shopping and is generally very independent. She lives in a one story, handicap-accessible house with her older brother, Jacky Horton, for whom she cares. She normally has no issues taking all of her medications as prescribed. Past Medical History Cardiac Medical History: Reports: Hyperlipidema, Hypertension Pulmonary Medical History: Reports: Pneumonia Denies: Asthma, Bronchitis, Chronic Obstructive Pulmonary Disease (COPD), Respiratory Failure, Sleep Apnea, Tuberculosis Neurological Medical History: Endocrine Medical History: Reports: Obesity Denies: Diabetes Mellitus Type 1, Diabetes Mellitus Type 2 Renal/ Medical History: Denies: End Stage Renal Disease Malignancy Medical History: Denies: Breast Cancer, Cervical Cancer, Leukemia, Lung Cancer, Ovarian Cancer GI Medical History: Reports: Gastroesophageal Reflux Disease, Hiatal Hernia, Other - SBO Denies: Crohn's Disease Musculoskeltal Medical History: Reports: Arthritis Denies: Fibromyalgia Psychiatric Medical History: Reports: Depression, Post Traumatic Stress Disorder Denies: Bipolar Disorder, Dementia Hematology: Denies: Anemia, Hemophilia, Sickle Cell Disease Infectious Medical History: Denies: HIV Past Surgical History Past Surgical History: Reports: Adenoidectomy, Appendectomy, Cholecystectomy, Hysterectomy, Orthopedic Surgery - carpal tunnel, Other - Sigmoid colectomy, rectopexy Dr. Fowler 2013; abdominal wall hernia surg Denies: Amputation, Section, Colostomy, Coronary Artery Bypass Graft, Gastric Bypass Surgery, Herniorrhaphy, Mastectomy, Pacemaker, Tonsillectomy, Tubal Ligation Social History Lives with: Family Smoking Status: Never Smoker Frequency of Alcohol Use: None Hx Recreational Drug Use: No Drugs: None Hx Prescription Drug Abuse: No Family History Family History: Reviewed & Not Pertinent, CAD, CVA, Malignancy Parental Family History Reviewed: Yes Children Family History Reviewed: NA Sibling(s) Family History Reviewed.: Yes Medication/Allergy Home Medications: Eszopiclone [Lunesta] 3 mg PO HSP PRN 07/01/18 Hydrochlorothiazide [Hydrodiuril 12.5 mg Tablet] 12.5 mg PO DAILY 07/01/18 Simvastatin [Zocor 80 mg Tablet] 80 mg PO DAILY 07/01/18 Duloxetine HCl 60 mg PO QAM 07/09/19 Sucralfate [Carafate Susp 1 gm/10 ml Udcup] 1 gm PO ACHS 14 Days #56 udc Linaclotide [Linzess 145 Mcg Capsule] 145 mcg PO DAILY 30 Days #30 capsule 07/19/19 Acetaminophen [Tylenol] 650 mg PO Q6HP PRN 12/20/19 Amitriptyline HCl [Elavil 25 mg Tablet] 50 mg PO QHS 12/20/19 Cholecalciferol (Vitamin D3) [Vitamin D3 1000 Unit Tablet] 2,000 unit PO DAILY 12/20/19 Duloxetine HCl [Cymbalta 30 mg Capsule.dr] 30 mg PO DAILY@1200 12/20/19 Famotidine [Pepcid 20 mg Tablet] 20 mg PO BID 12/20/19 Gabapentin [Neurontin 100 mg Capsule] 100 mg PO TID 12/20/19 Hydrochlorothiazide 12.5 mg PO DAILY 12/20/19 Hydrocodone/Acetaminophen [[place] 5-325 mg Tablet] 1 tab PO Q6H PRN 12/20/19 Metoclopramide HCl 10 mg PO QID 12/20/19 Mirtazapine 30 mg PO DAILY 12/20/19 Ondansetron [Zofran Odt 4 mg Tablet] 1 tab PO Q8HP PRN 12/20/19 Pantoprazole Sodium [Protonix [address] Tablet] 40 mg PO DAILY 12/20/19 Vit B Complex 100 Combo No.2 [B-100 Complex] 100 mg PO DAILY 12/20/19 Allergies/Adverse Reactions: Iodinated Contrast Media [Iodinated Contrast- Oral and IV Dye] Allergy (Intermediate, Verified 10/26/18 23:56) IVP dye Allergy (Intermediate, Uncoded 08/26/18 08:55) rash Physical Exam Vital Signs: Temp Pulse Resp BP Pulse Ox 98.2 F 93 19 129/74 H 95 12/20/19 07:10 12/20/19 02:14 12/20/19 11:01 12/20/19 11:00 12/20/19 11:01 Intake & Output 12/19/19 12/20/19 12/21/19 06:59 06:59 06:59 Intake Total 1050 Balance 1050 Weight 65.771 kg Additional comments: General: appears older than stated age, appears uncomfortable, dry heaving throughout exam Head: normocephalic, atraumatic Eyes: anicteric sclera ENT: dry mucus memranes, no oropharyngeal erythema/exudate Neck: no lymphadenopathy Lungs: clear to auscultation bilaterally Heart: regular rate and rhythm, no murmurs/rubs/gallops Abdomen: slow but + bowel sounds in all four quadrants, soft, +TTP in epigastric area, non-distended : +left-sided CVA tenderness, +suprapubic TTP Extremities: warm and well perfused, no edema Vascular: 2+ peripheral pulses in all extremities Neuro: A&Ox4, CN II-XII in tact Skin: no rash Results Laboratory Results: 12/20/19 07:07 12/20/19 07:07 12/20/19 12/20/19 12/20/19 05:55 05:55 06:15 WBC 6.8 RBC 4.88 Hgb 14.6 Hct 42.4 MCV 87 MCH 30.0 MCHC 34.5 RDW 14.1 H Plt Count 251 Seg Neutrophils % 75.9 Sodium Cancelled Potassium Cancelled Chloride Cancelled Carbon Dioxide Cancelled Anion Gap Cancelled BUN Cancelled Creatinine Cancelled Est GFR ( Amer) Cancelled Est GFR (Non-Af Amer) Cancelled Glucose Cancelled Lactic Acid Calcium Cancelled Total Bilirubin Cancelled AST Cancelled Alkaline Phosphatase Cancelled Total Protein Cancelled Albumin Cancelled Lipase Cancelled Urine Color YELLOW Urine Appearance SLIGHTLY-CLOUDY Urine pH 5.0 Ur Specific [place] 1.014 Urine Protein NEGATIVE Urine Glucose (UA) NEGATIVE Urine Ketones 20 H Urine Blood SMALL H Urine Nitrite POSITIVE H Ur Leukocyte Esterase MODERATE H Urine WBC (Auto) 17 Urine RBC (Auto) 1 12/20/19 12/20/19 12/20/19 07:07 07:07 07:07 WBC 5.6 RBC 4.47 Hgb 13.2 Hct 39.0 MCV 87 MCH 29.5 MCHC 33.8 RDW 14.0 Plt Count 237 Seg Neutrophils % 74.1 Sodium 137.7 Potassium 3.4 L Chloride 98 Carbon Dioxide 30 Anion Gap 10 BUN 14 Creatinine 0.83 Est GFR ( Amer) > 60 Est GFR (Non-Af Amer) Glucose 103 Lactic Acid 1.4 Calcium 8.4 Total Bilirubin 0.7 AST 41 H Alkaline Phosphatase 100 Total Protein 7.0 Albumin 4.3 Lipase 215.1 Urine Color Urine Appearance Urine pH Ur Specific [place] Urine Protein Urine Glucose (UA) Urine Ketones Urine Blood Urine Nitrite Ur Leukocyte Esterase Urine WBC (Auto) Urine RBC (Auto) 12/20/19 12/20/19 05:55 07:07 Troponin I Cancelled < 0.012 EKG Comments: reviewed 4 different EKGs with cardiology due to concern for possible A fib/flutter, but determined that patient is in normal sinus rhythm with poor baseline, inferior Q waves, QTc 440 Impressions: Abdomen/Pelvis CT 12/20/19 06:32 IMPRESSION: 1. Normal unenhanced CT scan of the abdomen and pelvis. There is no evidence of urinary tract calcification or urinary tract obstruction. 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 2. No evidence of bowel obstruction or other acute bowel pathology on this unenhanced scan. 3. Remote cholecystectomy and hysterectomy. Chest X-Ray 12/20/19 06:33 IMPRESSION: NO ACUTE RADIOGRAPHIC FINDING IN THE CHEST. Assessment and Plan - Diagnosis (1) Urinary tract infection Qualifiers: Urinary tract infection type: acute pyelonephritis Qualified Code(s): N10 - Acute pyelonephritis Is this a current diagnosis for this admission?: Yes (2) Vomiting Qualifiers: Vomiting type: unspecified Vomiting Intractability: intractable Nausea presence: with nausea Qualified Code(s): R11.2 - Nausea with vomiting, unspecified Is this a current diagnosis for this admission?: Yes (3) Abnormal finding on urinalysis Is this a current diagnosis for this admission?: Yes (4) TIA (transient ischemic attack) Is this a current diagnosis for this admission?: No - Plan Summary Summary: Abdominal Pain with Intractable Nausea and Vomiting: likely due to gastritis as seen on EGD and likely worsening in the s/o UTI and recent inability to take multiple home medications. Also on the differential is a SBO, although less likely in the s/o normal CT A/P. Anticipate improvement in symptoms with treatment of UTI (below) and IV anti-emetics. Also of concern is a possible GIB, given her history of coffee ground emesis, but her HGB on 12/17 and again today is stable and normal, so this is reassuring. - start Protonix 40 mg IV BID - continue home Reglan and famotidine, plan to switch to IV if unable to tolerate oral - start Zofran IV Q4H PRN - Tylenol PRN Pain (avoid NSAIDs) - advance diet slowly as tolerated - continue home Linzess - hold home ASA 81 mg daily until CBC is rechecked tomorrow, and if it continues to remain stable, will restart tomorrow Acute Klebsiella pneumoniae Urinary Tract Infection: concern for L pyelonephritis given L CVA tenderness and history of subjective fevers, chills and rigors. - order BCx x2 - start Ceftriaxone 1 g IV daily - Zofran as above Hypovolemia: in the setting of nausea/vomiting and poor PO intake. - give 1 L IVF and reassess - if she can tolerate oral intake, prefer to slowly advance diet rather than continue IVF in this elderly woman with heart disease Essential HTN: hold home HCTZ in the s/o volume depletion and normotension. HLD: continue home simvastatin Anxiety/Depression: continue home medications. DVT ppx: HOLD chemical ppx given report of coffee ground emesis this morning. Encourage patient to get OOB regularly and at least daily, as long as she is not dizzy. - Time Time Spent with patient: 35 or more minutes Anticipated Discharge Disposition: Home, Self Care Anticipated Discharge Timeframe: within 48 hours - Inpatient Certification Based on my medical assessment, after consideration of the patient's comorbidities, presenting symptoms, or acuity I expect that the services needed warrant INPATIENT care.: No I certify that my determination is in accordance with my understanding of Medicare's requirements for reasonable and necessary INPATIENT services [42 CFR 412.3e].: Yes Medical Necessity: Need For IV Fluids, Need for IV Antibiotics
[2019-12-20] MEDS ORDERED: ZOLPIDEM TARTRATE 5 MG TABLET PO PRN (13:23)
[2019-12-20] MEDS: GABAPENTIN 100 MG CAPSULE PO SCH ×2 (13:48→21:40)
[2019-12-20] MEDS ORDERED: METOCLOPRAMIDE HCL 10 MG PO SCH (14:00)
--- NOTE | 2019-12-20 15:16 | EKG REPORT ---
SEVERITY:- ABNORMAL ECG - SINUS RHYTHM CONSIDER ANTERIOR INFARCT BORDERLINE T ABNORMALITIES, DIFFUSE LEADS : Confirmed by: Martir Molina MD 20-Dec-2019 15:16:00
[2019-12-20] MEDS: SUCRALFATE 1 GM TABLET PO SCH ×2 (15:56→21:40)
[2019-12-20] MEDS ORDERED: (PENDING PHARMACY ID) (Sucralfate [Carafate Susp 1 Gm/10 Ml Udcup] 1 GM) PO SCH (16:00)
[2019-12-20] MEDS: FAMOTIDINE 20 MG TABLET PO SCH (18:25)
[2019-12-20] MEDS ORDERED: MORPHINE SULFATE 10 MG/ML INJ IV PRN ×2 (21:41→21:42)
[2019-12-20] MEDS: MORPHINE SULFATE 10 MG/ML INJ IV PRN (22:08)
[2019-12-21] MEDS: ONDANSETRON HCL INJ/PF 4 MG/2 ML SDV IV PRN ×3 (04:18→20:46)
[2019-12-21] MEDS: MORPHINE SULFATE 10 MG/ML INJ IV PRN ×2 (04:18→20:46)
[2019-12-21 04:40] LABS: HEMATOCRIT 40.1 % (36.0-47.0); HEMOGLOBIN 13.6 g/dL (12.0-15.5); MEAN CORPUSCULAR HEMOGLOBIN 29.4 pg (27.0-33.4); MEAN CORPUSCULAR HGB CONC 33.9 g/dL (32.0-36.0); MEAN CORPUSCULAR VOLUME 87 fl (80-97); PLATELET COUNT 235 10^3/uL (150-450); RED BLOOD COUNT 4.62 10^6/uL (3.72-5.28); WHITE BLOOD COUNT 4.3 10^3/uL (4.0-10.5)
[2019-12-21 05:02] LABS: ANION GAP 12 (5-19); BLOOD UREA NITROGEN 11 mg/dL (7-20); CALCIUM 9.2 mg/dL (8.4-10.2); CARBON DIOXIDE 25 mmol/L (22-30); CHLORIDE 101 mmol/L (98-107); GLUCOSE 89 mg/dL (75-110); POTASSIUM 3.7 mmol/L (3.6-5.0)
[2019-12-21] MEDS: GABAPENTIN 100 MG CAPSULE PO SCH ×3 (06:11→21:01)
[2019-12-21] MEDS: SUCRALFATE 1 GM TABLET PO SCH ×4 (07:56→21:01)
[2019-12-21] MEDS: METOCLOPRAMIDE HCL 10 MG TABLET PO SCH ×4 (07:56→21:01)
[2019-12-21] MEDS: DULOXETINE HCL 30 MG CAPSULE.DR PO SCH ×2 (07:57→12:14)
[2019-12-21] MEDS ORDERED: (PENDING PHARMACY ID) (Duloxetine Hcl [Duloxetine Hcl] 60 MG) PO SCH (08:00)
[2019-12-21] MEDS: CEFTRIAXONE 1 GM/D5W RTU 1 GM/50 ML RTUPB IV SCH (09:51)
[2019-12-21] MEDS: FAMOTIDINE 20 MG TABLET PO SCH ×2 (09:52→20:46)
[2019-12-21] MEDS: CHOLECALCIFEROL (D3) 1,000 UNIT (25 MCG) TABLET PO SCH (09:52)
[2019-12-21] MEDS: MIRTAZAPINE 15 MG TABLET PO SCH (09:52)
[2019-12-21] MEDS: THIAMINE HCL 100 MG TABLET PO SCH (09:53)
[2019-12-21] MEDS: PANTOPRAZOLE SODIUM 40 MG VIAL IV SCH ×2 (09:53→21:01)
[2019-12-21] MEDS ORDERED: (PENDING PHARMACY ID) (Mirtazapine [Mirtazapine] 30 MG) PO SCH (10:00)
[2019-12-21] MEDS ORDERED: (PENDING PHARMACY ID) (Linaclotide 145 MCG) PO SCH (10:00)
[2019-12-21] MEDS ORDERED: VIT B COMPLEX COMBO NO 2 PO SCH (10:00)
[2019-12-21] MEDS ORDERED: POLYETHYLENE GLYCOL 3350 POWDER 17 GM/1 PACKET PO PRN (17:53)
--- NOTE | 2019-12-21 17:53 | PDOC PROGRESS REPORT ---
Subjective Progress Note for:: 12/21/19 Subjective:: DELILAHO. Has not vomited since yesterday. Tolerating oral intake and medications PO. Still complains of severe burning epigastric abdominal pain. She denies SOB, LOPEZ, and has been passing gas. She has not had a BM today but declines to get stool softeners or suppository. Reason For Visit: INTRACTABLE NAUSEA AND VOMITING Physical Exam Vital Signs: Temp Pulse Resp BP Pulse Ox 98.1 F 79 18 101/58 L 95 12/21/19 16:25 12/21/19 16:25 12/21/19 16:25 12/21/19 16:25 12/21/19 16:25 Intake & Output 12/20/19 12/21/19 12/22/19 06:59 06:59 06:59 Intake Total 1360 60 Balance 1360 60 Weight 65.771 kg 68 kg Additional comments: General: appears older than stated age Head: normocephalic, atraumatic Eyes: anicteric sclera ENT: moist mucus memranes, no oropharyngeal erythema/exudate Neck: no lymphadenopathy Lungs: clear to auscultation bilaterally Heart: regular rate and rhythm, no murmurs/rubs/gallops Abdomen: +bowel sounds in all four quadrants, soft, +TTP in epigastric area, non-distended : +left-sided CVA tenderness, +suprapubic TTP Extremities: warm and well perfused, no edema Vascular: 2+ peripheral pulses in all extremities Neuro: A&Ox3 Skin: no rash Results Laboratory Results: 12/21/19 04:07 12/21/19 04:07 12/21/19 12/21/19 04:07 04:07 WBC 4.3 RBC 4.62 Hgb 13.6 Hct 40.1 MCV 87 MCH 29.4 MCHC 33.9 RDW 14.0 Plt Count 235 Sodium 138.4 Potassium 3.7 Chloride 101 Carbon Dioxide 25 Anion Gap 12 BUN 11 Creatinine 0.71 Est GFR ( Amer) > 60 Glucose 89 Calcium 9.2 Magnesium 2.7 H 12/20/19 12/20/19 05:55 07:07 Troponin I Cancelled < 0.012 Impressions: Abdomen/Pelvis CT 12/20/19 06:32 IMPRESSION: 1. Normal unenhanced CT scan of the abdomen and pelvis. There is no evidence of urinary tract calcification or urinary tract obstruction. 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 2. No evidence of bowel obstruction or other acute bowel pathology on this unenhanced scan. 3. Remote cholecystectomy and hysterectomy. Chest X-Ray 12/20/19 06:33 IMPRESSION: NO ACUTE RADIOGRAPHIC FINDING IN THE CHEST. Assessment and Plan - Diagnosis (1) Urinary tract infection Qualifiers: Urinary tract infection type: acute pyelonephritis Qualified Code(s): N10 - Acute pyelonephritis Is this a current diagnosis for this admission?: Yes (2) Vomiting Qualifiers: Vomiting type: unspecified Vomiting Intractability: intractable Nausea presence: with nausea Qualified Code(s): R11.2 - Nausea with vomiting, unspecified Is this a current diagnosis for this admission?: Yes (3) Abnormal finding on urinalysis Is this a current diagnosis for this admission?: Yes (4) TIA (transient ischemic attack) Is this a current diagnosis for this admission?: No - Plan Summary Summary: Abdominal Pain with Intractable Nausea and Vomiting: likely due to gastritis as seen on EGD and likely worsening in the s/o UTI and recent inability to take multiple home medications. Anticipate improvement in symptoms with treatment of UTI (below) and IV anti-emetics. Unlikely to have SBO given +BS and flatus. Unlikely to have GIB given stable HGB x3. - Protonix 40 mg IV BID - continue home Reglan and famotidine - Zofran IV Q4H PRN - Tylenol PRN Pain (avoid NSAIDs) - continue to advance diet slowly as tolerated - continue home Linzess Acute Klebsiella pneumoniae Urinary Tract Infection: concern for L pyelonephritis given L CVA tenderness and history of subjective fevers, chills and rigors. - follow BCx x2 x48 hours - continue Ceftriaxone 1 g IV daily and plan to switch to oral tomorrow if BCx remain negative - Zofran as above Hypovolemia: in the setting of nausea/vomiting and poor PO intake. - if she can tolerate oral intake, prefer to slowly advance diet rather than continue IVF in this elderly woman with heart disease Essential HTN: hold home HCTZ in the s/o volume depletion and normotension. HLD: continue home simvastatin Anxiety/Depression: continue home medications. DVT ppx: HOLD chemical ppx given report of coffee ground emesis yesterday morning. Encourage patient to get OOB regularly, which she has been doing. - Time Time Spent with patient: 35 or more minutes Anticipated Discharge Disposition: Home, Self Care Anticipated Discharge Timeframe: within 24 hours
[2019-12-21] MEDS ORDERED: MELATONIN 5 MG TABLET PO PRN (20:48)
[2019-12-21] MEDS ORDERED: MAG HYDROX/AL HYDROX/SIMETH SUSP 30 ML UDCUP PO PRN (20:48)
[2019-12-22] MEDS: GABAPENTIN 100 MG CAPSULE PO SCH (05:37)
[2019-12-22] MEDS: METOCLOPRAMIDE HCL 10 MG TABLET PO SCH ×2 (07:31→11:35)
[2019-12-22] MEDS: SUCRALFATE 1 GM TABLET PO SCH ×2 (07:31→11:35)
[2019-12-22] MEDS: DULOXETINE HCL 30 MG CAPSULE.DR PO SCH ×2 (07:32→11:35)
[2019-12-22] MEDS: ONDANSETRON HCL INJ/PF 4 MG/2 ML SDV IV PRN (07:32)
[2019-12-22] MEDS: MORPHINE SULFATE 10 MG/ML INJ IV PRN (07:46)
[2019-12-22] MEDS: CEFTRIAXONE 1 GM/D5W RTU 1 GM/50 ML RTUPB IV SCH (09:12)
[2019-12-22] MEDS: PANTOPRAZOLE SODIUM 40 MG VIAL IV SCH (09:13)
[2019-12-22] MEDS: CHOLECALCIFEROL (D3) 1,000 UNIT (25 MCG) TABLET PO SCH (09:14)
[2019-12-22] MEDS: MIRTAZAPINE 15 MG TABLET PO SCH (09:14)
[2019-12-22] MEDS: FAMOTIDINE 20 MG TABLET PO SCH (09:14)
[2019-12-22] MEDS: THIAMINE HCL 100 MG TABLET PO SCH (09:14)
[2019-12-22 12:15] VITALS: BP 121/55
--- NOTE | 2019-12-22 19:38 | PDOC DISCHARGE SUMMARY ---
Impression - Admit/DC Date/PCP Admission Date/Primary Care Provider: 12/20/19 09:54 WILL ARREGUIN MD Discharge Date: 12/22/19 - Discharge Diagnosis (1) Urinary tract infection Is this a current diagnosis for this admission?: Yes (2) Vomiting Is this a current diagnosis for this admission?: Yes (3) Abnormal finding on urinalysis Is this a current diagnosis for this admission?: Yes - Assessment Summary: Abdominal Pain with Nausea and Vomiting: likely due to gastritis as seen on recent outpatient EGD 1 week ago and worsening in the s/o UTI and recent inability to take multiple home medications. She had some improvement in symptoms with treatment of UTI (below) and IV anti-emetics. Unlikely to have SBO given +BS and flatus. Unlikely to have GIB given stable HGB on multiple checks. Acute Klebsiella pneumoniae Urinary Tract Infection: concern for L pyelo nephritis given L CVA tenderness and history of subjective fevers, chills and rigors but she had negative BCx x2. She was treated with 3 day course of Ceftriaxone 1 g IV daily. Hypovolemia: in the setting of nausea/vomiting and poor PO intake. Resolved with IVF hydration. - Additional Information Resuscitation Status: Full Code Discharge Diet: As Tolerated Discharge Activity: Activity As Tolerated Home Medications: Eszopiclone [Lunesta] 3 mg PO HSP PRN 07/01/18 Hydrochlorothiazide [Hydrodiuril 12.5 mg Tablet] 12.5 mg PO DAILY 07/01/18 Simvastatin [Zocor 80 mg Tablet] 80 mg PO DAILY 07/01/18 Duloxetine HCl 60 mg PO QAM 07/09/19 Linaclotide [Linzess 145 Mcg Capsule] 145 mcg PO DAILY 30 Days #30 capsule 07/19/19 Acetaminophen [Tylenol] 650 mg PO Q6HP PRN 12/20/19 Amitriptyline HCl [Elavil 25 mg Tablet] 50 mg PO QHS 12/20/19 Cholecalciferol (Vitamin D3) [Vitamin D3 1000 Unit Tablet] 2,000 unit PO DAILY 12/20/19 Duloxetine HCl [Cymbalta 30 mg Capsule.dr] 30 mg PO DAILY@1200 12/20/19 Famotidine [Pepcid 20 mg Tablet] 20 mg PO BID 12/20/19 Gabapentin [Neurontin 100 mg Capsule] 100 mg PO TID 12/20/19 Hydrocodone/Acetaminophen [[place] 5-325 mg Tablet] 1 tab PO Q6H PRN 12/20/19 Metoclopramide HCl 10 mg PO QID 12/20/19 Mirtazapine 30 mg PO DAILY 12/20/19 Ondansetron [Zofran Odt 4 mg Tablet] 1 tab PO Q8HP PRN 12/20/19 Pantoprazole Sodium [Protonix [address] Tablet] 40 mg PO DAILY 12/20/19 Polyethylene Glycol 3350 [Miralax Powder 17 gm/Packet] 17 gm PO DAILYP PRN powd.pack 12/22/19 Sucralfate [Carafate 1 gm Tablet] 1 gm PO ACHS tablet 12/22/19 History of Present Illiness History of Present Illness: CARMEN HORTON is a 64 year old woman with PMH of HTN, HLD, GERD, multiple abdominal surgeries complicated by history of multiple small bowel obstructions and depression/anxiety, who presents with chief complaint of nausea/vomiting and abdominal pain. She reports that, for approximately 10 days, she has had poor appetite and very little oral intake due to persistent nausea and epigastric abdominal pain. Her pain is sharp/stabbing/burning in quality. It does not radiate. She has chronic constipation which is unchanged from baseline and chronic lower back pain which is also unchanged. She had an upper endoscopy performed by Dr. Shane Brush at [facility] on 12/13/2019 which showed non-bleeding erosive gastropathy and small hiatal hernia. She takes multiple GI medications from chronic, poorly controlled GERD. She does take a daily baby aspirin but no NSAIDs. She has never smoked and does not drink alcohol. She presented to the ED on 12/18/2019, had normal labs/imaging and was sent home. Over the last 2 days, she has developed recurrent vomiting with any oral intake. Yesterday, she notes that she had a scant amount of bright red blood in her vomitus. This morning, she states that her vomit appeared to look like "coffee grounds." The pain has steadily worsened throughout the last 10 days, and she has been unable to tolerate any oral medications for several days. Denies recent weight loss. She also notes that over the last 4 days, she has had subjective fevers, chills and rigors. She has developed lower abdominal pain that is dull and aching. She has dysuria and urgency, but denies urinary frequency. She checks her temperature at home, and the highest it has been is 100.2 degrees F. She has had no sick contacts. She denies diarrhea. She had a UA/UC performed at her last ED visit on 12/17 which showed +Klebsiella. At baseline, Ms. Horton ambulates using a rolling walker at home and with a cane outdoors. She still drives, goes grocery shopping and is generally very independent. She lives in a one story, handicap-accessible house with her older brother, Jacky Horton, for whom she cares. She normally has no issues taking all of her medications as prescribed. Physical Exam Vital Signs: Temp Pulse Resp BP Pulse Ox 98.0 F 78 17 121/55 L 95 12/22/19 11:11 12/22/19 11:11 12/22/19 11:11 12/22/19 11:11 12/22/19 11:11 Intake & Output 12/21/19 12/22/19 12/23/19 06:59 06:59 06:59 Intake Total 1360 1120 296 Output Total 800 Balance 1360 320 296 Weight 68 kg 68 kg Results Laboratory Results: WBC 4.3 10^3/uL (4.0-10.5) 12/21/19 04:07 RBC 4.62 10^6/uL (3.72-5.28) 12/21/19 04:07 Hgb 13.6 g/dL (12.0-15.5) 12/21/19 04:07 Hct 40.1 % (36.0-47.0) 12/21/19 04:07 MCV 87 fl (80-97) 12/21/19 04:07 MCH 29.4 pg (27.0-33.4) 12/21/19 04:07 MCHC 33.9 g/dL (32.0-36.0) 12/21/19 04:07 RDW 14.0 % (11.5-14.0) 12/21/19 04:07 Plt Count 235 10^3/uL (150-450) 12/21/19 04:07 Lymph % (Auto) 18.0 % (13-45) 12/20/19 07:07 [place] % (Auto) 6.4 % (3-13) 12/20/19 07:07 Eos % (Auto) 1.1 % (0-6) 12/20/19 07:07 Baso % (Auto) 0.4 % (0-2) 12/20/19 07:07 Absolute Neuts (auto) 4.1 10^3/uL (1.7-8.2) 12/20/19 07:07 Absolute Lymphs (auto) 1.0 10^3/uL (0.5-4.7) 12/20/19 07:07 Absolute Monos (auto) 0.4 10^3/uL (0.1-1.4) 12/20/19 07:07 Absolute Eos (auto) 0.1 10^3/uL (0.0-0.6) 12/20/19 07:07 Absolute Basos (auto) 0.0 10^3/uL (0.0-0.2) 12/20/19 07:07 Seg Neutrophils % 74.1 % (42-78) 12/20/19 07:07 Sodium 138.4 mmol/L (137-145) 12/21/19 04:07 Potassium 3.7 mmol/L (3.6-5.0) 12/21/19 04:07 Chloride 101 mmol/L (98-107) 12/21/19 04:07 Carbon Dioxide 25 mmol/L (22-30) 12/21/19 04:07 Anion Gap 12 (5-19) 12/21/19 04:07 BUN 11 mg/dL (7-20) 12/21/19 04:07 Creatinine 0.71 mg/dL (0.52-1.25) 12/21/19 04:07 Est GFR ( Amer) > 60 (>60) 12/21/19 04:07 Est GFR (Non-Af Amer) Cancelled 12/20/19 05:55 Est GFR (MDRD) Non-Af > 60 (>60) 12/21/19 04:07 Glucose 89 mg/dL (75-110) 12/21/19 04:07 Lactic Acid 1.4 mmol/L (0.7-2.1) 12/20/19 07:07 Calcium 9.2 mg/dL (8.4-10.2) 12/21/19 04:07 Magnesium 2.7 mg/dL (1.6-2.3) H 12/21/19 04:07 Total Bilirubin 0.7 mg/dL (0.2-1.3) 12/20/19 07:07 Direct Bilirubin 0.5 mg/dL (0.0-0.4) H 12/20/19 07:07 Neonat Total Bilirubin Not Reportable 12/20/19 07:07 Neonat Direct Bilirubin Not Reportable 12/20/19 07:07 Neonat Indirect Bili Not Reportable 12/20/19 07:07 AST 41 U/L (14-36) H 12/20/19 07:07 ALT 25 U/L (<35) 12/20/19 07:07 Alkaline Phosphatase 100 U/L (38-126) 12/20/19 07:07 Troponin I < 0.012 ng/mL 12/20/19 07:07 Total Protein 7.0 g/dL (6.3-8.2) 12/20/19 07:07 Albumin 4.3 g/dL (3.5-5.0) 12/20/19 07:07 Lipase 215.1 U/L (23-300) 12/20/19 07:07 EGFR Cancelled 12/20/19 05:55 Urine Color YELLOW 12/20/19 06:15 Urine Appearance SLIGHTLY-CLOUDY 12/20/19 06:15 Urine pH 5.0 (5.0-9.0) 12/20/19 06:15 Ur Specific [place] 1.014 12/20/19 06:15 Urine Protein NEGATIVE mg/dL (NEGATIVE) 12/20/19 06:15 Urine Glucose (UA) NEGATIVE mg/dL (NEGATIVE) 12/20/19 06:15 Urine Ketones 20 mg/dL (NEGATIVE) H 12/20/19 06:15 Urine Blood SMALL (NEGATIVE) H 12/20/19 06:15 Urine Nitrite POSITIVE (NEGATIVE) H 12/20/19 06:15 Urine Bilirubin NEGATIVE (NEGATIVE) 12/20/19 06:15 Urine Urobilinogen NEGATIVE mg/dL (<2.0) 12/20/19 06:15 Ur Leukocyte Esterase MODERATE (NEGATIVE) H 12/20/19 06:15 Urine WBC (Auto) 17 /HPF 12/20/19 06:15 Urine RBC (Auto) 1 /HPF 12/20/19 06:15 U Hyaline Cast (Auto) 4 /LPF 12/20/19 06:15 Urine Bacteria (Auto) 3+ /HPF 12/20/19 06:15 Squamous Epi Cells Auto 1 /HPF 12/20/19 06:15 Urine Mucus (Auto) OCC /LPF 12/20/19 06:15 Urine Ascorbic Acid NEGATIVE (NEGATIVE) 12/20/19 06:15 12/20/19 12/20/19 05:55 07:07 Troponin I Cancelled < 0.012 Impressions: Abdomen/Pelvis CT 12/20/19 06:32 IMPRESSION: 1. Normal unenhanced CT scan of the abdomen and pelvis. There is no evidence of urinary tract calcification or urinary tract obstruction. 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 2. No evidence of bowel obstruction or other acute bowel pathology on this unenhanced scan. 3. Remote cholecystectomy and hysterectomy. Chest X-Ray 12/20/19 06:33 IMPRESSION: NO ACUTE RADIOGRAPHIC FINDING IN THE CHEST. Stroke Is this a Stroke Patient?: No Acute Heart Failure - Is this a Heart Failure Patient?: No
== END 2019-12-22 11:45 | disposition home or self-care (01) ==
LOC: ER 01:37 → EH 09:54 → 4N 21:06
PROVIDERS: ADMIT Hospitalist; ATTEND Hospitalist
DX: N39.0 Urinary tract infection, site not specified (principal); B96.1 Klebsiella pneumoniae [K. pneumoniae] as the cause of diseases classified elsewhere; R10.13 Epigastric pain; R11.2 Nausea with vomiting, unspecified; E86.1 Hypovolemia; R63.0 Anorexia; K59.09 Other constipation; K21.9 Gastro-esophageal reflux disease without esophagitis; M54.5 Low back pain; G89.29 Other chronic pain; K44.9 Diaphragmatic hernia without obstruction or gangrene; K31.9 Disease of stomach and duodenum, unspecified; I10 Essential (primary) hypertension; E78.5 Hyperlipidemia, unspecified; F41.9 Anxiety disorder, unspecified; R10.30 Lower abdominal pain, unspecified; R07.9 Chest pain, unspecified; F32.9 Major depressive disorder, single episode, unspecified; Z90.49 Acquired absence of other specified parts of digestive tract; Z90.710 Acquired absence of both cervix and uterus; Z79.82 Long term (current) use of aspirin; Z79.899 Other long term (current) drug therapy; Z98.890 Other specified postprocedural states; Z86.73 Personal history of transient ischemic attack (TIA), and cerebral infarction without residual deficits
CPT/HCPCS: 93005; 96376; 99285; 96360; 96375; 96365; 36415 ×2; 87040; 83605; 83690; 83735; 85025; 85027; 80048; 80053; 81001; 84484; 71045; 74176; 93010; G0378 ×4; A9270 ×23; J2765; J2270 ×3; C9113 ×3; J3490 ×3; J2405 ×3; J7030; J0696 ×3

== ENCOUNTER → 2020-01-09 | Outpatient (CLI) | payer MEDICARE, MEDICAID ==
--- NOTE | 2020-01-09 21:05 | XCELERA REPORT ---
[address] [address] Transthoracic Echocardiogram Report Name: CARMEN HORTON Age: 64 yrs Gender: Female : 1955 Patient Status: Outpatient Patient Location: Study Date: 01/09/2020 08:11 AM History: Chest pain Height: 57 in Weight: 148 lb BSA: 1.6 m2 Procedure: A complete two-dimensional transthoracic echocardiogram was performed (2D, M-mode, spectral and color flow Doppler). The study was technically adequate with some images being suboptimal in quality. Reason For Study: CP Ordering Physician: WILL ARREGUIN Performed By: Jose Jackman Interpretation Summary The study was technically adequate with some images being suboptimal in quality. Left ventricular systolic function is normal. The Ejection Fraction estimate is 55-60% The right ventricle is normal in size and function. There is a trace amount of mitral regurgitation There is no aortic valve stenosis There is a trace amount of tricuspid regurgitation Doppler findings do not suggest pulmonary hypertension. There is no pericardial effusion. MMode/2D Measurements & Calculations RVDd: 2.6 cm LVIDd: 4.5 cm FS: 29.1 % Ao root diam: 3.2 cm IVSd: 0.98 cm LVIDs: 3.2 cm EDV(Teich): 94.4 ml Ao root area: 8.1 cm2 LVPWd: 0.98 cm ESV(Teich): 41.6 ml LA dimension: 3.1 cm EF(Teich): 55.9 % Doppler Measurements & Calculations MV E max betzy: MV P1/2t max betzy: Ao V2 max: LV V1 max P.5 cm/sec 47.6 cm/sec 96.0 cm/sec 3.6 mmHg MV A max betzy: MV P1/2t: 99.1 msec Ao max PG: LV V1 max: 60.3 cm/sec MVA(P1/2t): 2.2 cm2 3.7 mmHg 94.3 cm/sec MV E/A: 0.80 MV dec slope: 140.8 cm/sec2 MV dec time: 0.24 sec PA V2 max: PI end-d betzy: TR max betzy: MV P1/2t-pr_phl: 73.2 cm/sec 81.7 cm/sec 200.3 cm/sec 99.1 msec PA max PG: TR max P.1 mmHg 16.0 mmHg Left Ventricle The left ventricle is normal in size. There is mild concentric left ventricular hypertrophy. Left ventricular systolic function is normal. The Ejection Fraction estimate is 55-60%. Doppler measurements suggest impaired left ventricular relaxation, which is associated with grade I/IV or mild diastolic dysfunction. No regional wall motion abnormalities noted. Right Ventricle The right ventricle is normal in size and function. Atria The right atrium is normal. The left atrium is mildly dilated. The interatrial septum is intact with no evidence for an atrial septal defect. There is no Doppler evidence for an interatrial shunt. Mitral Valve The mitral valve is grossly normal. There is a trace amount of mitral regurgitation. Aortic Valve The aortic valve is trileaflet. The aortic valve opens well. The aortic valve is normal in structure and function. There is no aortic valve stenosis. No aortic regurgitation is present. Tricuspid Valve The tricuspid valve is normal in structure and function. There is a trace amount of tricuspid regurgitation. Tricuspid regurgitation jet envelope not well defined to measure RV systolic pressure accurately. Doppler findings do not suggest pulmonary hypertension. Pulmonic Valve The pulmonic valve is normal in structure and function. There is a trace amount of pulmonic regurgitation. Great Vessels The aortic root is normal size. The inferior vena cava appeared normal and decreased > 50% with respiration (RAP 5-10 mmHg). Effusions There is no pericardial effusion. : WILL ARREGUIN Anil
== END ==
LOC: SP 07:41
PROVIDERS: ATTEND Internal Medicine
DX: R07.9 Chest pain, unspecified (principal); I10 Essential (primary) hypertension; R06.00 Dyspnea, unspecified
CPT/HCPCS: 93306

== ENCOUNTER → 2020-01-29 | Outpatient (CLI) | payer MEDICARE, MEDICAID ==
[~2020-01-29] MED LIST changes: -PROPOFOL INJ 200 MG/20 ML VIAL IV ONE; +REGADENOSON INJ 0.4 MG/5 ML DISP.SYRIN IV ONE
--- NOTE | 2020-01-30 08:41 | DRAGON STRESS TEST REPORT ---
Pharmacological nuclear stress test Date: January 30, 2020 Referring physician: Ricky Michelle MD Performing physician: Ricky Michelle MD Indication: Chest pain Clinical history 64-year-old lady with hypertension and dyslipidemia who presented with chest pain and diaphoresis as well as dyspnea. We decided to proceed with pharmacological nuclear stress test. Procedure The patient presented to the stress lab. Initially rest images were obtained according to standard protocol after the injection of 10.98 millicurie technetium 99m sestamibi. Subsequently the patient underwent pharmacological stress utilizing 0.4 mg of regadenoson intravenously. The patient's EKG and vital signs were monitored throughout the procedure. Subsequently patient was injected with 31.4 millicuries of technetium 99m sestamibi. After a period of rest, stress images were obtained according to standard protocol. EKG showed sinus rhythm at 83 beats per minute. The patient's stress EKG did not show any evidence for myocardial ischemia. However there was significant baseline artifact which limits the validity of this conclusion. There were no arrhythmias observed. Raw as well as processed rest and stress images were reviewed. There was mild to moderate gut uptake which did not interfere with the study. The rest and stress images show uniform uptake of radioactive isotope without any fixed or reversible defects to suggest myocardial ischemia or myocardial infarction. There is normal contractility post-stress. The calculated ejection fraction is 54%. The TID ratio is 1.17. Conclusion The stress EKG is negative for myocardial ischemia There is no scintigraphic evidence of myocardial infarction or ischemia provoked by pharmacological stress. There is normal contractility post-stress. The gated left ventricular ejection fraction is 54 %. The patient will be given an appointment to discuss these results. [facility]
== END ==
LOC: RAD 08:14
PROVIDERS: ATTEND Internal Medicine
DX: R07.9 Chest pain, unspecified (principal); I10 Essential (primary) hypertension; R06.00 Dyspnea, unspecified; E78.5 Hyperlipidemia, unspecified
CPT/HCPCS: 93017; 78452; A9500; J2785; Q9969

== ENCOUNTER 2020-02-26 11:49 | Emergency (ER) | payer MEDICARE, MEDICAID ==
[2020-02-26] MEDS ORDERED: MAG HYDROX/AL HYDROX/SIMETH SUSP 30 ML UDCUP PO ONE ×2 (13:26→20:32)
[2020-02-26] MEDS ORDERED: METOCLOPRAMIDE HCL ORAL SOLN 10 MG/10 ML UDCUP PO ONE ×2 (13:26→20:32)
[2020-02-26] MEDS ORDERED: LIDOCAINE 2% VISCOUS SOLN 15 ML UDCUP PO ONE ×2 (13:26→20:32)
--- NOTE | 2020-02-26 13:27 | ER Document Report ---
ED Medical Screen (RME) - General Chief Complaint: Chest Pain Stated Complaint: CHEST BURNING Time Seen by Provider: 02/26/20 13:10 Primary Care Provider: WILL ARREGUIN MD [Primary Care Provider] - Follow up as needed Mode of Arrival: Wheelchair Information source: Patient Notes: 65-year-old female patient presenting to the emergency department chief complaint of burning in her upper abdomen, chest and numbness and tingling on the left arm. Patient reports history of hypertension and hyperlipidemia. She denies any history of [place]. She is a non-smoker. She states the pain is a 5/5. Symptoms started approximately 1 hour ago. Patient is alert, oriented, no acute distress noted. Lung sounds clear and equal bilaterally. I have greeted and performed a rapid initial assessment of this patient. A comprehensive ED assessment and evaluation of the patient, analysis of test results and completion of the medical decision making process will be conducted by additional ED providers. I have specifically instructed the patient or family members with the patient to immediately return to any nursing staff should anything change in the patient's condition or with their chief complaint. TRAVEL OUTSIDE OF THE [place] IN LAST 30 DAYS: No - Related Data Allergies/Adverse Reactions: Iodinated Contrast Media [Iodinated Contrast- Oral and IV Dye] Allergy (Intermediate, Verified 10/26/18 23:56) IVP dye Allergy (Intermediate, Uncoded 08/26/18 08:55) rash Past Medical History - Social History Chew tobacco use (# tins/day): No Frequency of alcohol use: None Drug Abuse: None - Past Medical History Cardiac Medical History: Reports: Hx Hypercholesterolemia, Hx Hypertension Pulmonary Medical History: Reports: Hx Pneumonia Denies: Hx Asthma, Hx Bronchitis, Hx COPD, Hx Respiratory Failure, Hx Sleep Apnea, Hx Tuberculosis Neurological Medical History: Reports: Hx Cerebrovascular Accident - Patient reports "mini stroke". Denies: Hx Parkinson's Disease Endocrine Medical History: Denies: Hx Diabetes Mellitus Type 1, Hx Diabetes Mellitus Type 2 Renal/ Medical History: Reports: Hx Kidney Stones. Denies: Hx End Stage Renal Disease, Hx Ovarian Cysts, Hx Peritoneal Dialysis Malignancy Medical History: Denies: Hx Breast Cancer, Hx Cervical Cancer, Hx Leukemia, Hx Lung Cancer, Hx Ovarian Cancer GI Medical History: Reports: Hx Gastroesophageal Reflux Disease, Hx Hiatal Hernia, Hx Ulcer. Denies: Hx Crohn's Disease, Hx Irritable Bowel, Hx Liver Failure, Hx Pancreatitis Musculoskeltal Medical History: Reports Hx Arthritis, Denies Hx Fibromyalgia, Denies Hx Multiple Sclerosis, Denies Hx Muscular Dystrophy Psychiatric Medical History: Reports: Hx Depression, Hx Post Traumatic Stress Disorder Denies: Hx Bipolar Disorder, Hx Dementia, Hx Schizophrenia Traumatic Medical History: Reports: Hx Fractures - left wrist Infectious Medical History: Denies: Hx HIV Past Surgical History: Reports: Hx Abdominal Surgery - Hernia mesh placed, Hx Adenoidectomy, Hx Appendectomy, Hx Bowel Surgery, Hx Cholecystectomy, Hx Hysterectomy, Hx Orthopedic Surgery - carpal tunnel, Other - Sigmoid colectomy, rectopexy Dr. Fowler 2013; abdominal wall hernia surg. Denies: Hx Section, Hx Colostomy, Hx Coronary Artery Bypass Graft, Hx Gastric Bypass Surgery, Hx Herniorrhaphy, Hx Mastectomy, Hx Pacemaker, Hx Tonsillectomy, Hx Tubal Ligation - Immunizations Hx Diphtheria, Pertussis, Tetanus Vaccination: Yes Physical Exam - Vital signs Vitals: Temp Pulse Resp BP Pulse Ox 98.5 F 87 18 149/84 H 99 02/26/20 12:02 02/26/20 12:02 02/26/20 12:02 02/26/20 12:02 02/26/20 12:02 Course - Vital Signs Vital signs: Temp Pulse Resp BP Pulse Ox 98.5 F 87 18 149/84 H 99 02/26/20 12:02 02/26/20 12:02 02/26/20 12:02 02/26/20 12:02 02/26/20 12:02 Doctor's Discharge - Discharge Referrals: WILL ARREGUIN MD [Primary Care Provider] - Follow up as needed
[2020-02-26 13:52] LABS: ABSOLUTE EOSINOPHILS # (AUTO) 0.1 10^3/uL (0.0-0.6); ABSOLUTE LYMPHOCYTES (AUTO) 1.3 10^3/uL (0.5-4.7); ABSOLUTE MONOCYTES (AUTO) 0.4 10^3/uL (0.1-1.4); ABSOLUTE NEUT (AUTO) 5.2 10^3/uL (1.7-8.2); BASOPHILS % (AUTO) 0.7 % (0-2); EOSINOPHILS % (AUTO) 1.4 % (0-6); HEMATOCRIT 37.3 % (36.0-47.0); HEMOGLOBIN 12.9 g/dL (12.0-15.5); LYMPHOCYTES % (AUTO) 18.6 % (13-45); MEAN CORPUSCULAR HEMOGLOBIN 29.1 pg (27.0-33.4); MEAN CORPUSCULAR HGB CONC 34.7 g/dL (32.0-36.0); MEAN CORPUSCULAR VOLUME 84 fl (80-97); PLATELET COUNT 257 10^3/uL (150-450); RED BLOOD COUNT 4.45 10^6/uL (3.72-5.28); SEGMENTED NEUTROPHILS % (AUTO) 73.3 % (42-78); TOTAL CELLS COUNTED % (AUTO) 100 %
--- NOTE | 2020-02-26 14:03 | RADIOLOGY REPORT (SQ) ---
EXAM DESCRIPTION: CHEST SINGLE VIEW IMAGES COMPLETED DATE/TIME: 02/26/2020 1:45 pm REASON FOR STUDY: chest pain COMPARISON: 12/20/2019 EXAM PARAMETERS: NUMBER OF VIEWS: One view. TECHNIQUE: Single frontal radiographic view of the chest acquired. RADIATION DOSE: NA LIMITATIONS: None. FINDINGS: LUNGS AND PLEURA: No opacities, masses or pneumothorax. No pleural effusion. MEDIASTINUM AND HILAR STRUCTURES: No masses. Contour normal. HEART AND VASCULAR STRUCTURES: Heart normal in size. Normal vasculature. BONES: No acute findings. HARDWARE: None in the chest. OTHER: No other significant finding. IMPRESSION: NO ACUTE RADIOGRAPHIC FINDING IN THE CHEST. TECHNICAL DOCUMENTATION: JOB ID: [id number] [email or web address]- All Rights Reserved Reading location - IP/workstation name: [email or web address]
[2020-02-26 14:17] LABS: ALBUMIN 4.7 g/dL (3.5-5.0); ALKALINE PHOSPHATASE 95 U/L (38-126); ANION GAP 12 (5-19); ASPARTATE AMINO TRANSFERASE 25 U/L (14-36); BILIRUBIN,DIRECT 0.1 mg/dL (0.0-0.4); BILIRUBIN,TOTAL 0.3 mg/dL (0.2-1.3); BLOOD UREA NITROGEN 11 mg/dL (7-20); CARBON DIOXIDE 28 mmol/L (22-30); CHLORIDE 101 mmol/L (98-107); GLUCOSE 97 mg/dL (75-110); POTASSIUM 4.2 mmol/L (3.6-5.0)
[2020-02-26] MEDS ORDERED: SUCRALFATE 1 GM TABLET PO ONE (18:10)
[2020-02-26] MEDS ORDERED: FAMOTIDINE 20 MG TABLET PO ONE (18:10)
--- NOTE | 2020-02-26 20:12 | ER Document Report ---
ED General - General Chief Complaint: Chest Pain Stated Complaint: CHEST BURNING Time Seen by Provider: 02/26/20 13:10 Primary Care Provider: WILL ARREGUIN MD [Primary Care Provider] - Follow up as needed Mode of Arrival: Wheelchair Information source: Patient Notes: ED Medical Screen (Buck JOSEPH) - General Chief Complaint: Chest Pain Stated Complaint: CHEST BURNING Time Seen by Provider: 02/26/20 13:10 Primary Care Provider: WILL ARREGUIN MD [Primary Care Provider] - Follow up as needed Mode of Arrival: Wheelchair Information source: Patient Notes: 65-year-old female patient presenting to the emergency department chief complaint of burning in her upper abdomen, chest and numbness and tingling on the left arm. Patient reports history of hypertension and hyperlipidemia. She denies any history of UT. She is a non-smoker. She states the pain is a 5/5. Symptoms started approximately 1 hour ago. Patient is alert, oriented, no acute distress noted. Lung sounds clear and equal bilaterally. MY NOTES 65 year old White female arrives via EMS with chief complaint of chest pain anteriorly with radiation to epigastric area and down left arm with nausea without vomiting and diaphoresis which began around 1300 hrs. Patient reports she has had this happen before over the last 3 months. 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 She advises she needs something for pain and nausea. She is moving all extremities well. She denies any alcohol or cigarette use but advises her brother who is 68 years old who she lives with does smoke and does drink. Patient denies any headache nuchal rigidity skin rash black tarry stools hematemesis cough or cold symptoms Covid symptoms. Patient sees Dr. Arreguin and is on Cymbalta HCTZ Reglan omeprazole simvastatin and has a history of GERD HLD insomnia and her temperature was 99.4 per EMS and they gave 324 of aspirin p.o. prior to arrival. Vital signs were within normal limits prior to arrival per EMS. TRAVEL OUTSIDE OF THE [place] IN LAST 30 DAYS: No - Related Data Allergies/Adverse Reactions: Iodinated Contrast Media [Iodinated Contrast- Oral and IV Dye] Allergy (Intermediate, Verified 10/26/18 23:56) IVP dye Allergy (Intermediate, Uncoded 08/26/18 08:55) rash Past Medical History - General Information source: Patient - Social History Smoking Status: Never Smoker Cigarette use (# per day): No Chew tobacco use (# tins/day): No Smoking Education Provided: No Frequency of alcohol use: None Drug Abuse: None Lives with: Family Family History: Reviewed & Not Pertinent, CAD, CVA, Malignancy Patient has suicidal ideation: No Patient has homicidal ideation: No - Past Medical History Cardiac Medical History: Reports: Hx Hypercholesterolemia, Hx Hypertension Pulmonary Medical History: Reports: Hx Pneumonia Denies: Hx Asthma, Hx Bronchitis, Hx COPD, Hx Respiratory Failure, Hx Sleep Apnea, Hx Tuberculosis Neurological Medical History: Reports: Hx Cerebrovascular Accident - Patient rep orts "mini stroke". Denies: Hx Parkinson's Disease Endocrine Medical History: Denies: Hx Diabetes Mellitus Type 1, Hx Diabetes Mellitus Type 2 Renal/ Medical History: Reports: Hx Kidney Stones. Denies: Hx End Stage Renal Disease, Hx Ovarian Cysts, Hx Peritoneal Dialysis Malignancy Medical History: Denies: Hx Breast Cancer, Hx Cervical Cancer, Hx Leukemia, Hx Lung Cancer, Hx Ovarian Cancer GI Medical History: Reports: Hx Gastroesophageal Reflux Disease, Hx Hiatal Hernia, Hx Ulcer. Denies: Hx Crohn's Disease, Hx Irritable Bowel, Hx Liver Failure, Hx Pancreatitis Musculoskeletal Medical History: Reports Hx Arthritis, Denies Hx Fibromyalgia, Denies Hx Multiple Sclerosis, Denies Hx Muscular Dystrophy Psychiatric Medical History: Reports: Hx Depression, Hx Post Traumatic Stress Disorder Denies: Hx Bipolar Disorder, Hx Dementia, Hx Schizophrenia Traumatic Medical History: Reports: Hx Fractures - left wrist Infectious Medical History: Denies: Hx HIV Past Surgical History: Reports: Hx Abdominal Surgery - Hernia mesh placed, Hx Adenoidectomy, Hx Appendectomy, Hx Bowel Surgery, Hx Cholecystectomy, Hx Hysterectomy, Hx Orthopedic Surgery - carpal tunnel, Other - Sigmoid colectomy, rectopexy Dr. Fowler 2013; abdominal wall hernia surg. Denies: Hx Section, Hx Colostomy, Hx Coronary Artery Bypass Graft, Hx Gastric Bypass Surgery, Hx Herniorrhaphy, Hx Mastectomy, Hx Pacemaker, Hx Tonsillectomy, Hx Tubal Ligation - Immunizations Hx Diphtheria, Pertussis, Tetanus Vaccination: Yes Hx Pneumococcal Vaccination: 01/17/18 Review of Systems - Review of Systems Constitutional: No symptoms reported EENT: No symptoms reported Cardiovascular: See HPI, Chest pain Respiratory: No symptoms reported Gastrointestinal: See HPI, Nausea Genitourinary: No symptoms reported Female Genitourinary: No symptoms reported Musculoskeletal: No symptoms reported Skin: No symptoms reported Hematologic/Lymphatic: No symptoms reported Neurological/Psychological: No symptoms reported -: Yes All other systems reviewed and negative Physical Exam - Vital signs Vitals: Temp Pulse Resp BP Pulse Ox 98.5 F 87 18 149/84 H 99 02/26/20 12:02 02/26/20 12:02 02/26/20 12:02 02/26/20 12:02 02/26/20 12:02 Interpretation: Normal, Hypertensive - General General appearance: Appears well, Alert - HEENT Head: Normocephalic, Atraumatic Eyes: Normal Pupils: PERRL - Respiratory Respiratory status: No respiratory distress Chest status: Nontender Breath sounds: Normal Chest palpation: Normal - Cardiovascular Rhythm: Regular Heart sounds: Normal auscultation Murmur: No - Abdominal Inspection: Normal Distension: No distension Bowel sounds: Normal Tenderness: Nontender Organomegaly: No organomegaly - Rectal Hemorrhoids: Other - deferred - Genitourinary Bimanuel exam: Other - deferred - Back Back: Normal, Nontender - Extremities General upper extremity: Normal inspection, Nontender, Normal color, Normal ROM, Normal temperature General lower extremity: Normal inspection, Nontender, Normal color, Normal ROM, Normal temperature, Normal weight bearing. No: Sam's sign - Neurological Neuro grossly intact: Yes Cognition: Normal Orientation: AAOx4 Familia Coma Scale Eye Opening: Spontaneous Familia Coma Scale Verbal: Oriented [place] Coma Scale Motor: Obeys Commands Familia Coma Scale Total: 15 Speech: Normal Motor strength normal: LUE, RUE, LLE, RLE Sensory: Normal - Psychological Associated symptoms: Normal affect, Normal mood - Skin Skin Temperature: Warm Skin Moisture: Dry Skin Color: Normal Course - Vital Signs Vital signs: Temp Pulse Resp BP Pulse Ox 98.5 F 83 18 143/86 H 97 02/26/20 12:02 02/26/20 17:35 02/26/20 17:35 02/26/20 17:35 02/26/20 17:35 - Laboratory Result Diagrams: 02/26/20 13:39 02/26/20 13:39 - Diagnostic Test Radiology reviewed: Reports reviewed - EKG Interpretation by [place] EKG shows normal: Sinus rhythm Rate: Normal Rhythm: NSR, Other - Sinus rhythm on EKG with 85 bpm with ALFREDO consider biatrial abnormalities and suspicion for inferior infarct old with no ST elevation or T wave depression. This EKG was read by myself as well as by EKG machine and another doctor had evaluated this EKG prior to me seeing it at 2015. Critical Care Note - Critical Care Note Comments: This case was discussed with Dr. Arreguin at 2024 and he advises he will see the patient in office he will call her tomorrow at home. She may be discharged home. Discharge - Discharge Clinical Impression: Chronic nausea, Angina at rest Chest pain Qualifiers: Chest pain type: unspecified Qualified Code(s): R07.9 - Chest pain, unspecified GERD (gastroesophageal reflux disease) Qualifiers: Esophagitis presence: without esophagitis Qualified Code(s): K21.9 - Gastro- esophageal reflux disease without esophagitis Condition: Stable Disposition: HOME, SELF-CARE Additional Instructions: Follow-up with Dr. Arreguin tomorrow. He will call you and you will be evaluated at office. Take medicines as directed encourage fluids avoid any stomach irritating medications or irritants and avoid any orange juice or popcorn or vitamin C. return to ER as needed Referrals: WILL ARREGUIN MD [Primary Care Provider] - Follow up as needed
[2020-02-26] MEDS ORDERED: ONDANSETRON 4 MG TAB.RAPDIS PO ONE (20:32)
[2020-02-26] MEDS ORDERED: HYDROCODONE/ACETAMINOPHEN 5-325 MG TABLET PO ONE (20:33)
[2020-02-26 21:24] VITALS: BP 135/82
--- NOTE | 2020-02-26 22:49 | EKG REPORT ---
SEVERITY:- ABNORMAL ECG - SINUS RHYTHM ALFREDO, CONSIDER BIATRIAL ABNORMALITIES PROBABLE INFERIOR INFARCT, OLD CONSIDER ANTERIOR INFARCT : Confirmed by: Jose M Rome 26-Feb-2020 22:48:32
== END 2020-02-26 21:27 | disposition home or self-care (01) ==
LOC: ER 11:49
DX: K21.9 Gastro-esophageal reflux disease without esophagitis (principal); I20.9 Angina pectoris, unspecified; R07.9 Chest pain, unspecified; R11.0 Nausea; I10 Essential (primary) hypertension; R10.10 Upper abdominal pain, unspecified; R20.0 Anesthesia of skin; E78.5 Hyperlipidemia, unspecified
CPT/HCPCS: 93005; 99285; 36415; 85025; 80053; 84484; 71045; 93010; A9270 ×6; J3490; S0119

== ENCOUNTER → 2020-05-06 | Outpatient (CLI) | payer MEDICARE, MEDICAID ==
[2020-05-06 16:45] LABS: ABSOLUTE BASOPHILS # (AUTO) 0.1 10^3/uL (0.0-0.2); ABSOLUTE EOSINOPHILS # (AUTO) 0.1 10^3/uL (0.0-0.6); ABSOLUTE LYMPHOCYTES (AUTO) 2.2 10^3/uL (0.5-4.7); ABSOLUTE MONOCYTES (AUTO) 0.5 10^3/uL (0.1-1.4); ABSOLUTE NEUT (AUTO) 5.9 10^3/uL (1.7-8.2); BASOPHILS % (AUTO) 0.7 % (0-2); EOSINOPHILS % (AUTO) 0.9 % (0-6); HEMOGLOBIN 13.5 g/dL (12.0-15.5); LYMPHOCYTES % (AUTO) 24.8 % (13-45); MEAN CORPUSCULAR HEMOGLOBIN 27.5 pg (27.0-33.4); MEAN CORPUSCULAR HGB CONC 33.6 g/dL (32.0-36.0); MEAN CORPUSCULAR VOLUME 82 fl (80-97); MONOCYTES % (AUTO) 6.3 % (3-13); PLATELET COUNT 340 10^3/uL (150-450); RED BLOOD COUNT 4.89 10^6/uL (3.72-5.28); RED CELL DISTRIBUTION WIDTH 15.5 % (11.5-14.0); SEGMENTED NEUTROPHILS % (AUTO) 67.3 % (42-78); TOTAL CELLS COUNTED % (AUTO) 100 %; WHITE BLOOD COUNT 8.7 10^3/uL (4.0-10.5)
[2020-05-06 17:07] LABS: ANION GAP 11 (5-19); BLOOD UREA NITROGEN 15 mg/dL (7-20); CALCIUM 10.1 mg/dL (8.4-10.2); CARBON DIOXIDE 27 mmol/L (22-30); CHLORIDE 99 mmol/L (98-107); GLUCOSE 118 mg/dL (75-110); POTASSIUM 3.6 mmol/L (3.6-5.0)
== END ==
LOC: OD 15:20
PROVIDERS: ATTEND Surgery
DX: R10.33 Periumbilical pain (principal)
CPT/HCPCS: 36415; 80048; 85025

== ENCOUNTER 2020-05-09 14:10 | Emergency (ER) | payer MEDICARE, MEDICAID ==
[2020-05-09 14:52] LABS: ABSOLUTE BASOPHILS # (AUTO) 0.1 10^3/uL (0.0-0.2); ABSOLUTE EOSINOPHILS # (AUTO) 0.1 10^3/uL (0.0-0.6); ABSOLUTE LYMPHOCYTES (AUTO) 1.9 10^3/uL (0.5-4.7); ABSOLUTE MONOCYTES (AUTO) 0.5 10^3/uL (0.1-1.4); ABSOLUTE NEUT (AUTO) 4.3 10^3/uL (1.7-8.2); BASOPHILS % (AUTO) 0.9 % (0-2); EOSINOPHILS % (AUTO) 1.8 % (0-6); HEMATOCRIT 37.5 % (36.0-47.0); HEMOGLOBIN 12.7 g/dL (12.0-15.5); LYMPHOCYTES % (AUTO) 28.1 % (13-45); MEAN CORPUSCULAR HEMOGLOBIN 27.4 pg (27.0-33.4); MEAN CORPUSCULAR HGB CONC 33.7 g/dL (32.0-36.0); MEAN CORPUSCULAR VOLUME 81 fl (80-97); MONOCYTES % (AUTO) 6.9 % (3-13); PLATELET COUNT 295 10^3/uL (150-450); RED BLOOD COUNT 4.62 10^6/uL (3.72-5.28); RED CELL DISTRIBUTION WIDTH 15.6 % (11.5-14.0); SEGMENTED NEUTROPHILS % (AUTO) 62.3 % (42-78); TOTAL CELLS COUNTED % (AUTO) 100 %; WHITE BLOOD COUNT 6.9 10^3/uL (4.0-10.5)
--- NOTE | 2020-05-09 14:52 | RADIOLOGY REPORT (SQ) ---
EXAM DESCRIPTION: CHEST SINGLE VIEW IMAGES COMPLETED DATE/TIME: 05/09/2020 2:39 pm REASON FOR STUDY: cp COMPARISON: 02/26/2020 EXAM PARAMETERS: NUMBER OF VIEWS: One view. TECHNIQUE: Single frontal radiographic view of the chest acquired. RADIATION DOSE: NA LIMITATIONS: None. FINDINGS: LUNGS AND PLEURA: No opacities, masses or pneumothorax. No pleural effusion. MEDIASTINUM AND HILAR STRUCTURES: No masses. Contour normal. HEART AND VASCULAR STRUCTURES: Heart normal in size. Normal vasculature. BONES: No acute findings. HARDWARE: None in the chest. OTHER: No other significant finding. IMPRESSION: NO ACUTE RADIOGRAPHIC FINDING IN THE CHEST. TECHNICAL DOCUMENTATION: JOB ID: [id number] 2010 [employer]- All Rights Reserved Reading location - IP/workstation name: [email or web address]
[2020-05-09 15:07] LABS: ALBUMIN 4.3 g/dL (3.5-5.0); ALKALINE PHOSPHATASE 86 U/L (38-126); ANION GAP 8 (5-19); ASPARTATE AMINO TRANSFERASE 29 U/L (14-36); BILIRUBIN,DIRECT 0.2 mg/dL (0.0-0.4); BILIRUBIN,TOTAL 0.4 mg/dL (0.2-1.3); BLOOD UREA NITROGEN 11 mg/dL (7-20); CALCIUM 9.3 mg/dL (8.4-10.2); CARBON DIOXIDE 28 mmol/L (22-30); CHLORIDE 100 mmol/L (98-107); CREATINE KINASE 44 U/L (30-135); GLUCOSE 112 mg/dL (75-110); POTASSIUM 3.2 mmol/L (3.6-5.0); TOTAL PROTEIN 7.4 g/dL (6.3-8.2)
[2020-05-09 15:19] LABS: CREATINE KINASE MB 0.23 ng/mL (<4.55)
[2020-05-09 15:21] LABS: TROPONIN I < 0.012 ng/mL
[2020-05-09] MEDS ORDERED: MORPHINE SULFATE 10 MG/ML INJ IV ONE ×2 (19:05→21:34)
[2020-05-09] MEDS ORDERED: ONDANSETRON HCL INJ/PF 4 MG/2 ML SDV IV ONE ×2 (19:05→21:34)
--- NOTE | 2020-05-09 19:32 | RADIOLOGY REPORT (SQ) ---
EXAM DESCRIPTION: CT ABD/PELVIS NO ORAL OR IV IMAGES COMPLETED DATE/TIME: 05/09/2020 7:19 pm REASON FOR STUDY: abd pain COMPARISON: 12/20/2019 TECHNIQUE: CT scan of the abdomen and pelvis performed without intravenous contrast. Oral contrast was given. Images reviewed with lung, soft tissue, and bone windows. Reconstructed coronal and sagit jd MPR images reviewed. All images stored on PACS. All CT scanners at this facility use dose modulation, iterative reconstruction, and/or weight based d osing when appropriate to reduce radiation dose to as low as reasonably achievable (ALARA). [facility]: Dose Right [facility]: CareDose [facility]: Dose Right [facility]: Teradose 4D [facility]: Smart [employer] [facility] RADIATION DOSE: CT Rad equipment meets quality standard of care and radiation dose reduction techniq ues were employed. CTDIvol: 12.0 mGy. DLP: 626 mGy-cm.mGy. LIMITATIONS: None. FINDINGS: LOWER CHEST: No significant findings. No nodules or infiltrates. NON-CONTRASTED LIVER, SPLEEN, ADRENALS: Evaluation limited by lack of IV contrast. No identified sign ificant masses. PANCREAS: No masses. No peripancreatic inflammatory changes. GALLBLADDER: Surgically absent. RIGHT KIDNEY AND URETER: No suspicious masses. Assessment limited by lack of IV contrast. No signif icant calcifications. No hydronephrosis or hydroureter. LEFT KIDNEY AND URETER: No suspicious masses. Assessment limited by lack of IV contrast. No signifi cant calcifications. No hydronephrosis or hydroureter. AORTA AND RETROPERITONEUM: No aneurysm. No retroperitoneal masses or adenopathy. BOWEL AND PERITONEAL CAVITY: No obvious masses or inflammatory changes. No free fluid. APPENDIX: Normal. PELVIS, BLADDER, AND ABDOMINAL WALL:No abnormal masses. No free fluid. Bladder normal. BONES: No significant findings. OTHER: No other significant finding. IMPRESSION: No acute findings in the abdomen or pelvis. COMMENT: Quality ID # [id number]: Final reports with documentation of one or more dose reduction techniques (e.g., Automated exposure control, adjustment of the mA and/or kV according to patient size, use of iterative reconstruction technique) TECHNICAL DOCUMENTATION: JOB ID: [id number] 2010 [employer]- All Rights Reserved Reading location - IP/workstation name: [email or web address]
--- NOTE | 2020-05-09 19:56 | EKG REPORT ---
SEVERITY:- BORDERLINE ECG - SINUS RHYTHM BORDERLINE T ABNORMALITIES, DIFFUSE LEADS : Confirmed by: Martir Molina MD 09-May-2020 19:56:04
--- NOTE | 2020-05-09 20:00 | ER Document Report ---
Entered by NESTOR MEJIA SCRIBE 05/09/20 [id number] Acting as scribe for:BLAKE CARDOZO, ED General - General Chief Complaint: Chest Pain Stated Complaint: CHEST PAIN Time Seen by Provider: 05/09/20 18:34 Primary Care Provider: MAGDALENA SHAH PA-C [Primary Care Provider] - 05/10/20 Information source: Patient Notes: This 65 year old female patient presents to the emergency department today with complaints of right chest pain and right abdominal pain. Patient states she was scheduled to have a CAT scan of her abdomen but was cancelled because she needs to pre-medicate beforehand. Patient states as she was leaving, she felt lightheaded, dizzy, about to faint, and then had chest pain. Denies any recent fever, cough, vomiting, or diarrhea. TRAVEL OUTSIDE OF THE [place] IN LAST 30 DAYS: No - Related Data Allergies/Adverse Reactions: Iodinated Contrast Media [Iodinated Contrast- Oral and IV Dye] Allergy (Intermediate, Verified 05/09/20 14:32) IVP dye Allergy (Intermediate, Uncoded 05/09/20 14:32) rash Past Medical History - General Information source: Patient, [facility] Records - Social History Smoking Status: Former Smoker Family History: Reviewed & Not Pertinent, CAD, CVA, Malignancy Patient has homicidal ideation: No - Past Medical History Cardiac Medical History: Reports: Hx Hypercholesterolemia, Hx Hypertension Pulmonary Medical History: Reports: Hx Pneumonia Neurological Medical History: Reports: Hx Cerebrovascular Accident - Patient rep orts "mini stroke" Renal/ Medical History: Reports: Hx Kidney Stones GI Medical History: Reports: Hx Gastroesophageal Reflux Disease, Hx Hiatal Leonora ia, Hx Ulcer Musculoskeletal Medical History: Reports Hx Arthritis Psychiatric Medical History: Reports: Hx Depression, Hx Post Traumatic Stress Disorder Traumatic Medical History: Reports: Hx Fractures - left wrist Past Surgical History: Reports: Hx Abdominal Surgery - Hernia mesh placed, Hx Adenoidectomy, Hx Appendectomy, Hx Bowel Surgery, Hx Cholecystectomy, Hx Hysterectomy, Hx Orthopedic Surgery - carpal tunnel, Other - Sigmoid colectomy, rectopexy Dr. Fowler 2013; abdominal wall hernia surg - Immunizations Hx Diphtheria, Pertussis, Tetanus Vaccination: Yes Hx Pneumococcal Vaccination: 01/17/18 Review of Systems - Review of Systems Constitutional: See HPI. denies: Fever EENT: No symptoms reported Cardiovascular: See HPI, Chest pain - right, Dizziness, Lightheaded Respiratory: See HPI. denies: Cough Gastrointestinal: See HPI, Abdominal pain - right. denies: Diarrhea, Vomiting Genitourinary: No symptoms reported Female Genitourinary: No symptoms reported Musculoskeletal: No symptoms reported Skin: No symptoms reported Hematologic/Lymphatic: No symptoms reported Neurological/Psychological: No symptoms reported -: Yes All other systems reviewed and negative Physical Exam - Vital signs Vitals: Pulse Ox 97 05/09/20 14:11 - General General appearance: Alert, Anxious - HEENT Head: Normocephalic, Atraumatic Eyes: Normal Pupils: PERRL - Respiratory Respiratory status: No respiratory distress Breath sounds: Normal Notes: Tenderness with palpation to the right anterior chest. No crepitus, No deformity. - Cardiovascular Rhythm: Regular Heart sounds: Normal auscultation Murmur: No - Abdominal Inspection: Normal - soft Distension: No distension Bowel sounds: Normal Notes: Tenderness with palpation to the RUQ, RLQ, and mid right flank. - Extremities General upper extremity: Normal inspection, Normal ROM General lower extremity: Normal inspection, Normal ROM. No: Edema - Neurological Neuro grossly intact: Yes Cognition: Normal Orientation: AAOx4 [place] Coma Scale Eye Opening: Spontaneous [place] Coma Scale Verbal: Oriented [place] Coma Scale Motor: Obeys Commands Familia Coma Scale Total: 15 Speech: Normal Sensory: Normal - Psychological Associated symptoms: Normal affect, Anxious - Skin Skin Temperature: Warm Skin Moisture: Dry Skin Color: Normal Course - Re-evaluation Re-evalutation: 05/09/20 21:41 MDM 65 year female is here after near syncope event in the hospital while here to get Ct of abd/ pelvis for chronic pain. She needed to premedicate due to IV constrast allergy and that was apparently forgotten. No fever and nontoxic here. She does appear a bit anxious and prehaps depressed. She feels better here and she may follow up. - Vital Signs Vital signs: Temp Pulse Resp BP Pulse Ox 9 L 128/75 H 95 05/09/20 22:01 05/09/20 22:01 05/09/20 22:01 - Laboratory Results Result Diagrams: 05/09/20 14:28 05/09/20 14:28 Laboratory Results Interpreted: 01/21/21 01/21/21 01/21/21 14:28 14:28 20:27 RDW 15.6 H Sodium 135.6 L Potassium 3.2 L Glucose 112 H Urine Ketones 20 H Critical Laboratory Results Reviewed: No Critical Results - Radiology Results Critical Radiology Results Reviewed: No Critical Results - EKG Interpretation by Me Rate: Normal Rhythm: NSR Voltage: Increased voltage - NSR NL [place] [address] elevation or depression my interpretation. Discharge - Discharge Clinical Impression: Hypokalemia Chronic pain Qualifiers: Chronic pain type: chronic pain syndrome Qualified Code(s): G89.4 - Chronic pain syndrome Condition: Stable Disposition: HOME, SELF-CARE Instructions: Abdominal Pain ([facility]), Clear Liquid Diet ([facility]) Additional Instructions: Call your doctor in follow up. Rest, please return here for chest pain, shortness of breath, persistent vom iting other problems or other concerns. Your potassium was a bit low. We have ordered some from you. Have that potassium level rechecked in the next few weeks. Your medicine was transmitted to [facility] in [place]. Prescriptions: Dicyclomine HCl [Bentyl 10 mg Capsule] 1 cap PO TID #15 cap Ondansetron [Zofran Odt 4 mg Tablet] 1 - 2 tab PO Q4H PRN #15 tab.rapdis PRN Reason: For Nausea/Vomiting Referrals: MAGDALENA SHAH PA-C [Primary Care Provider] - 05/10/20 I personally performed the services described in the documentation, reviewed and edited the documentation which was dictated to the scribe in my presence, and it accurately records my words and actions.
[2020-05-09 20:47] LABS: APPEARANCE,URINE CLEAR; BILIRUBIN,URINE NEGATIVE (NEGATIVE); COLOR,URINE YELLOW; GLUCOSE, URINE NEGATIVE (NEGATIVE); KETONES,URINE 20 mg/dL (NEGATIVE); LEUKOCYTE ESTERASE,URINE NEGATIVE (NEGATIVE); NITRITE,URINE NEGATIVE (NEGATIVE); PROTEIN,URINE NEGATIVE (NEGATIVE); URINE SPECIFIC GRAVITY 1.008; UROBILINOGEN,URINE NEGATIVE mg/dL (<2.0)
[2020-05-09 22:27] VITALS: BP 128/75
== END 2020-05-09 22:27 | disposition home or self-care (01) ==
LOC: ER 14:10
DX: E87.6 Hypokalemia (principal); G89.4 Chronic pain syndrome; R07.9 Chest pain, unspecified; R10.30 Lower abdominal pain, unspecified; R42 Dizziness and giddiness; R55 Syncope and collapse; E78.00 Pure hypercholesterolemia, unspecified; I10 Essential (primary) hypertension; Z86.73 Personal history of transient ischemic attack (TIA), and cerebral infarction without residual deficits
CPT/HCPCS: 93005; 96376; 99285; 96374; 96375; 36415; 82553; 82550; 83605; 85025; 80053; 81001; 84484; 71045; 74176; 93010; J2270; J2405